=== PATIENT | female | born 1970 | race Asian ===

== ENCOUNTER 2017-12-03 12:12 | Inpatient (IN) | END 2018-02-10 12:30 | disposition home or self-care (01) | DRG 853 ==

== ENCOUNTER 2018-04-10 13:59 | Emergency (ER) | payer BC ==
[~2018-04-10] VITALS: Ht 154.9 cm; Wt 72.7 kg
[~2018-04-10 13:59] MED LIST: ASPI-817 PO; ATOR40TA68 PO; BETH10TA16 PO; CARV12.579 PO; METF500T NGT; NIFE60TA18 PO
[2018-04-10 14:15] VITALS: Ht 154.9 cm; Wt 72.7 kg
--- NOTE | 2018-04-10 14:46 | ERD ---
ER Documentation Chief Complaint Chief Complaint HPI This is a 48-year-old woman currently using doxycycline for bilateral toe gangre ne resulting from recent hospitalization for pyelonephritis. Patient was told to come to the emergency department for evaluation of creatinine of 1.4 which is above her normal and an abnormal urinalysis result. Patient denies back or flank pain, no dysuria, no chest pain or shortness of breath, no rash, no cough or URI symptoms. Patient is able to urinate multiple times daily and is at this time asymptomatic ROS All systems reviewed and are negative except as per history of present illness. Medications Home Meds Active Scripts Cephalexin* (Keflex*) 500 Mg Capsule, 500 MG PO TID for 7 Days, CAP Prov:GISELA HYMAN MD 04/10/18 Nifedipine* (Nifedipine ER*) 60 Mg Tablet.sa, 60 MG PO DAILY, #60 TAB.SA Prov:ANEL COTA 02/09/18 Bethanechol Chloride* (Bethanechol Chloride*) 10 Mg Tablet, 10 MG PO TID, #90 TAB 1 Refill Prov:ANEL COTA 02/09/18 Aspirin* (Aspirin* EC) 81 Mg Tablet., 81 MG PO DAILY for 90 Days, #90 TAB 5 Refills Prov:BRET PARIKH MD 02/05/18 Metformin Hcl (Glucophage) 500 Mg Tablet, 1000 MG NGT BID WITH MEALS for 60 Days, #120 TAB 5 Refills Prov:BRET PARIKH MD 02/05/18 Atorvastatin* (Atorvastatin*) 40 Mg Tablet, 40 MG PO HS for 90 Days, #90 TAB 5 Refills Prov:BRET PARIKH MD 02/05/18 Carvedilol* (Carvedilol*) 12.5 Mg Tablet, 12.5 MG PO BID for 90 Days, #45 TAB 5 Refills Prov:BRET PARIKH MD 02/05/18 Reported Medications Doxycycline Hyclate* (Doxycycline Hyclate*) 100 Mg Tablet.dr, 100 MG PO BID for 14 Days, TAB PER PT'S ON TX FOR THE PAST 7 DAYS 03-24-18 04/10/18 Allergies Allergies: Coded Allergies: No Known Allergy (Unverified , 04/10/18) PMhx/Soc Recent history of septic shock due to urinary tract infection status post double-J stent, neurogenic bladder, diabetes mellitus, peripheral digital necrosis, history of multifocal strokes, hypertension History of Surgery: No Anesthesia Reaction: No Hx Neurological Disorder: No Hx Respiratory Disorders: No Hx Cardiac Disorders: Yes (htn) Hx Psychiatric Problems: No Hx Alcohol Use: No Hx Substance Use: No Hx Tobacco Use: No FmHx Family History: No diabetes Physical Exam Vitals Vital Signs Date Temp Pulse Resp B/P (MAP) Pulse Ox O2 O2 Flow FiO2 Time Delivery Rate 04/10/18 99.1 90 16 138/82 100 Room Air 16:43 (100) 04/10/18 98.6 78 16 132/90 100 14:15 (104) Physical Exam Const: No acute distress, afebrile Head: Atraumatic Eyes: Normal Conjunctiva ENT: Normal External Ears, Nose and Mouth. Neck: Full range of motion. No meningismus. Resp: Clear to auscultation bilaterally Cardio: Regular rate and rhythm, no murmurs Abd: Soft, non tender, non distended. Normal bowel sounds Skin: No petechiae or rashes Back: No midline or flank tenderness Ext: No cyanosis, or edema Neur: Awake and alert x3, no focal deficits or facial asymmetry Psych: Normal Mood and Affect Result Diagram: 04/10/18 1421 04/10/18 1421 Results 24 hrs Laboratory Tests Test 04/10/18 14:21 White Blood Count 12.6 10^3/ul Red Blood Count 4.29 10^6/ul Hemoglobin 12.1 g/dl Hematocrit 36.7 % Mean Corpuscular Volume 85.5 fl Mean Corpuscular Hemoglobin 28.2 pg Mean Corpuscular Hemoglobin Concent 33.0 g/dl Red Cell Distribution Width 12.7 % Platelet Count 315 10^3/UL Mean Platelet Volume 10.5 fl Immature Granulocytes % 0.400 % Neutrophils % 70.3 % Lymphocytes % 16.1 % Monocytes % 5.9 % Eosinophils % 6.7 % Basophils % 0.6 % Nucleated Red Blood Cells % 0.0 /100WBC Immature Granulocytes # 0.050 10^3/ul Neutrophils # 8.9 10^3/ul Lymphocytes # 2.0 10^3/ul Monocytes # 0.7 10^3/ul Eosinophils # 0.8 10^3/ul Basophils # 0.1 10^3/ul Nucleated Red Blood Cells # 0.0 10^3/ul Urine Color YELLOW Urine Clarity SLIGHTLY CLOUDY Urine pH 5.0 Urine Specific [place] 1.011 Urine Ketones NEGATIVE mg/dL Urine Nitrite POSITIVE mg/dL Urine Bilirubin NEGATIVE mg/dL Urine Urobilinogen NEGATIVE mg/dL Urine Leukocyte Esterase 1+ Luis F/ul Urine Microscopic RBC 2 /HPF Urine Microscopic WBC 56 /HPF Urine Squamous Epithelial Cells FEW /HPF Urine Bacteria MODERATE /HPF Urine Hemoglobin 1+ mg/dL Urine Glucose NEGATIVE mg/dL Urine Total Protein 2+ mg/dl Sodium Level 138 mmol/L Potassium Level 4.2 mmol/L Chloride Level 107 mmol/L Carbon Dioxide Level 21 mmol/L Anion Gap 10 Blood Urea Nitrogen 23 mg/dl Creatinine 1.12 mg/dl Est Glomerular Filtrat Rate mL/min 52 mL/min Glucose Level 150 mg/dl Calcium Level 10.3 mg/dl Total Bilirubin 0.0 mg/dl Direct Bilirubin 0.00 mg/dl Indirect Bilirubin 0.0 mg/dl Aspartate Amino Transf (AST/SGOT) 23 IU/L Alanine Aminotransferase (ALT/SGPT) < 6 IU/L Alkaline Phosphatase 69 IU/L Total Protein 9.3 g/dl Albumin 4.4 g/dl Globulin 4.90 g/dl Albumin/Globulin Ratio 0.89 Lipase 184 U/L Current Medications Medications Dose Sig/[place] Start Time Status Last (Trade) Ordered Route PRN Stop Time Admin Dose Reason Admin Sodium 500 ml @ Q1H ONCE 04/10/18 DC 04/10/18 Chloride 500 mls/hr IV 15:00 15:16 04/10/18 15:59 Ceftriaxone 50 ml @ ONCE ONCE 04/10/18 DC 04/10/18 Sodium 100 mls/hr IVPB 15:30 15:33 04/10/18 15:59 Procedures/MDM IV line was established patient was placed on monitoring engineer rhythm strip revealed a sinus rhythm at about 80 bpm with upright P and T waves. Patient was afebrile. Blood and urine cultures have also been ordered results are pending I will follow-up. I administered 500 cc normal saline IV. CBC reveals a mild leukocytosis at 13, electrolytes are unremarkable, liver function tests were normal, urinalysis positive for infection. Seems the creatinine has improved since her PMD checked it a few days ago. I administered ceftriaxone 1 g IV. Patient's vital signs are normal and she is asymptomatic, I told her to continue doxycycline but I will be administering cephalexin as an outpatient times 1 week. Differential diagnoses considered, included but not limited to acute coronary syndrome, pulmonary embolism, aortic dissection, abdominal aortic aneurysm, sepsis, stroke, meningitis, encephalitis, pneumonia, appendicitis, cholecy stitis, bowel obstruction, pyelonephritis, nephrolithiasis, cystitis, as well as metabolic, hematologic, and electrolyte abnormalities. As well as abscess, cellulitis, fractures, and dislocations. Patient feels much better at this time, and vital signs are normal, symptoms have improved. I did give strict instructions to return to the ED if symptoms continue or worsen, patient will otherwise follow-up with primary care physician. Patient understood instructions and agreed to plan. Disclaimer: Inadvertent spelling and grammatical errors are likely due to EHR/dictation software use and do not reflect on the overall quality of patient care. Also, please note that the electronic time recorded on this note does not necessarily reflect the actual time of the patient encounter. Departure Diagnosis: Primary Impression: Toe gangrene Additional Impression: Acute UTI Condition: Good GISELA HYMAN MD Apr 10, 2018 14:46
[2018-04-10] MEDS ORDERED: DOXY100T20 PO (14:56)
[2018-04-10] MEDS ORDERED: SOD CHLORIDE 0.9% 500 ML IV ONE (15:00)
[2018-04-10] MEDS ORDERED: CEPH-443 PO (15:20)
[2018-04-10] MEDS ORDERED: CEFTRIAXONE 1 GM/50 ML (PMX) 50 ML IVPB ONE (15:30)
[2018-04-10 16:43] VITALS: BP 138/82; PULSE 90; RESP 16
== END 2018-04-10 17:16 | disposition home or self-care (01) ==
LOC: E/R 13:59
DX: I96 Gangrene, not elsewhere classified (principal); N39.0 Urinary tract infection, site not specified; I10 Essential (primary) hypertension; Z79.82 Long term (current) use of aspirin; Z79.84 Long term (current) use of oral hypoglycemic drugs
CPT/HCPCS: 36415; 80053; 81001; 83690; 85025; 87040; 87086; 96374; J0696; Z7502

== ENCOUNTER 2018-07-07 12:26 | Inpatient (IN) | payer BC ==
[~2018-07-07] VITALS: Ht 162.6 cm; Wt 57.0 kg
[~2018-07-07 12:26] MED LIST changes: +CEPH-443 PO; +DOXY100T20 PO
[2018-07-07] MEDS ORDERED: VANCOMYCIN IV PER PHARMACY XX SCH (13:00)
[2018-07-07] MEDS ORDERED: LIDOCAINE 1% (MPF) 5 ML VIAL SC ONE ×2 (13:00→13:30)
[2018-07-07 13:23] VITALS: BP 102/52; PULSE 99; RESP 18
[2018-07-07 13:39] VITALS: Ht 162.6 cm; Wt 57.0 kg
[2018-07-07] MEDS: PIPER-TAZO 3.375 GM IV (PMX) 100 ML IVPB SCH ×2 (14:00→21:53)
[2018-07-07] MEDS ORDERED: DOCUSATE SODIUM 100 MG CAP PO PRN (14:30)
[2018-07-07] MEDS ORDERED: VANCOMYCIN 1 GM (PMX) 250 ML IVPB SCH ×2 (14:30→17:00)
[2018-07-07] MEDS ORDERED: ONDANSETRON 4 MG INJ IV PRN (14:30)
[2018-07-07] MEDS ORDERED: HYDROCODONE/APAP (5/325) TAB PO PRN (14:30)
[2018-07-07] MEDS ORDERED: NACL 0.9% 3 ML SYG IV SCH (14:30)
--- NOTE | 2018-07-07 14:45 | HP ---
Date/Time of Note Date/Time of Note DATE: 07/07/18 TIME: 14:39 Assessment/Plan VTE Prophylaxis SCD applied (from Ns): Yes Pharmacological prophylaxis: NA/contraindicated Pharm contraindication: bleeding Assessment/Plan Hospital Course SUBJECTIVE: No acute distress. OBJECTIVE: Vital signs-see below PHYSICAL EXAM: Constitutional: Well-developed, well-nourished not in acute distress. HEENT: Head atraumatic and normocephalic. Eyes: Extraocular muscles intact. Anicteric sclerae. Pupils equal bilaterally, reactive to light. NECK: Supple without lymph node. CHEST: Clear and good breath sounds equally. No wheezing. No rhonchi. HEART: S1, S2. Regular rate and rhythm. ABDOMEN: Soft with no rebound tenderness. Bowel sounds were present. EXTREMITIES: Bilateral foot covered with Kerlix wrap, bloody oozing noted outside. Full range of motion in all the extremities. No cyanosis, clubbing or edema. NEUROLOGIC: Alert and oriented x3. No focal deficit. No sensory deficit. PSYCHOSOCIAL: In a good mood. No signs of depression. INTEGUMENTARY: Moist mucous membranes. Good skin turgor, intact. ASSESSMENT AND PLAN: 48-year-old female with history of type 2 diabetes, hypertension, sepsis/MDR bacteremia and bilateral worsening foot ulcers for which metatarsal amputation was recommended in the past for which patient and family refused and is being managed conservatively, sent by field specialist for inpatient management for worsening bilateral foot ulcers. 1. Bilateral gangrenous foot ulcers with Osteomyelitis -Again, metatarsal amputation was proposed in the past for which patient and family not receptive. At present, podiatry managing w/ conservative medical treatment, local wound care, IV antibiotics. -Obtain MRI to confirm OM. -terminal block assembler IV antimicrobials 2. Type 2 diabetes -Accu-Cheks/Lantus/sliding scale insulin. 3. History of stroke -For now we will hold aspirin secondary to bleeding. 4. Essential hypertension -Resume nifedipine and Coreg 5. Neurogenic bladder/urinary retention -Resume bethanechol DVT prophylaxis: SCDs only. Chemical anticoagulation held in light of bleeding. PUD prophylaxis: Not indicated Rest of the management depend on hospital course. Patient was seen in collaboration with . Result Diagram: 07/07/18 1313 07/07/18 1313 Results 24hrs Laboratory Tests Test 07/07/18 13:12 07/07/18 13:13 Prothrombin Time 12.4 Prothrombin Time Ratio 1.0 INR International Normalized Ratio 0.91 Activated Partial Thromboplast Time 35.4 H White Blood Count 15.9 #H Red Blood Count 3.24 #L Hemoglobin 8.9 #L Hematocrit 28.1 #L Mean Corpuscular Volume 86.7 Mean Corpuscular Hemoglobin 27.5 L Mean Corpuscular Hemoglobin Concent 31.7 L Red Cell Distribution Width 13.6 Platelet Count 384 # Mean Platelet Volume 9.7 Immature Granulocytes % 0.600 H Neutrophils % 71.0 Lymphocytes % 13.0 L Monocytes % 7.2 Eosinophils % 7.3 H Basophils % 0.9 Nucleated Red Blood Cells % 0.0 Immature Granulocytes # 0.100 H Neutrophils # 11.3 H Lymphocytes # 2.1 Monocytes # 1.1 H Eosinophils # 1.2 H Basophils # 0.1 Nucleated Red Blood Cells # 0.0 Erythrocyte Sedimentation Rate > 130 H Sodium Level 145 H Potassium Level 4.2 Chloride Level 110 Carbon Dioxide Level 22 Anion Gap 13 Blood Urea Nitrogen 30 H Creatinine 1.75 H Est Glomerular Filtrat Rate mL/min 31 L Glucose Level 170 Hemoglobin A1c 6.5 H Calcium Level 9.8 Total Bilirubin 0.0 L Direct Bilirubin 0.00 Indirect Bilirubin 0.0 Aspartate Amino Transf (AST/SGOT) 16 Alanine Aminotransferase (ALT/SGPT) < 6 L Alkaline Phosphatase 73 Total Protein 8.7 H Albumin 4.0 Globulin 4.70 H Albumin/Globulin Ratio 0.85 HPI/ROS Admit Date/Time Admit Date/Time Jul 07, 2018 at 12:55 Hx of Present Illness This is a 48-year-old female with diabetes, worsening bilateral foot gangrene,History of multidrug-resistant wound cultures, bacteremia, who was previously recommended a transmetatarsal amputation for which patient and family is not receptive, who is under the care of and is being managed medically for limb salvage with local care and placenta treatment sent for inpatient management w/IV abx for worsening bilateral foot gangrene. Patient denies chest pain, palpitation, short of breath, nausea, vomiting, ab dominal pain, fever, chills, diarrhea, constipation or others. Bilateral foot wound is dressed, bleeding noted outside. ROS A 12 point review of system was assessed and is negative other than what is mentioned in the HPI. PMH/Family/Social Past Medical History Medications Current Medications Vancomycin HCl (Vanco Iv Per Pharmacy) VANCOMYCIN PER PHARMACY PER PROTOCOL XX ; Start 07/07/18 at 13:00 Piperacillin Sod/ Tazobactam Sod 100 ml @ 200 mls/hr Q8 IVPB ; Start 07/07/18 at 14:00 Atorvastatin Calcium (Lipitor) 40 mg HS PO ; Start 07/07/18 at 21:00 Bethanechol Chloride (Urecholine) 10 mg TID PO ; Start 07/07/18 at 21:00 Carvedilol (Coreg) 12.5 mg BID PO ; Start 07/07/18 at 21:00 Nifedipine (Procardia Xl) 60 mg DAILY PO ; Start 07/08/18 at 09:00 Vancomycin HCl 250 ml @ 125 mls/hr ONCE IVPB ; Start 07/07/18 at 17:00; Stop 07/07/18 at 22:00 IV Flush (NS 3 ml) 3 ml PER PROTOCOL IV ; Start 07/07/18 at 14:30; Status UNV Ondansetron HCl (Zofran Inj) 4 mg Q6H PRN IV NAUSEA/VOMITING; Start 07/07/18 at 14:30; Status UNV Acetaminophen (Tylenol Tab) 650 mg Q6H PRN PO .PAIN 1-3 OR TEMP; Start 07/07/18 at 14:30; Status UNV Acetaminophen/ Hydrocodone Bitart ([place] (5/325)) 1 tab Q6H PRN PO .MOD PAIN 4-6; Start 07/07/18 at 14:30; Status UNV Docusate Sodium (Colace) 100 mg Q12H PRN PO .CONSTIPATION; Start 07/07/18 at 14:30; Status UNV Heparin Sodium (Porcine) (Heparin (5000 Units/1ml)) 5,000 unit Q12 SC ; Start 07/07/18 at 21:00; Status UNV Miscellaneous Information (* Miscellaneous Pharmacy Order) Discontinue current oral sulfonylur... ONCE ONCE XX ; Start 07/07/18 at 14:30; Stop 07/07/18 at 14:31; Status UNV Diagnostic Test (Pha) (Accu-Chek) 1 ea XX ; Start 07/08/18 at 02:00; Status UNV Insulin Glargine (Lantus) 9 units DAILY@2000 SC ; Start 07/07/18 at 20:00; Status UNV Miscellaneous Information (* Miscellaneous Pharmacy Order) HYPOGLYCEMIA PROTOCOL w... ONCE ONCE XX ; Start 07/07/18 at 14:30; Stop 07/07/18 at 14:31; Status UNV Insulin Aspart (Novolog Insulin Pen) NOVOLOG *MILD* ALGORITHM WITH MEALS BEDTIME SC ; Start 07/07/18 at 17:55; Status UNV Miscellaneous Information (* Miscellaneous Pharmacy Order) Discontinue all previ... ONCE ONCE XX ; Start 07/07/18 at 14:30; Stop 07/07/18 at 14:31; Status UNV Coded Allergies: No Known Allergy (Unverified , 04/10/18) Family History Significant Family History: no pertinent family hx Social History Smoking Status: Never smoker Exam/Review of Systems Vital Signs Vitals Vital Signs Date Temp Pulse Resp B/P (MAP) Pulse Ox O2 O2 Flow FiO2 Time Delivery Rate 07/07/18 97.9 99 18 102/52 100 Room Air 13:23 (69) RONALD HOLM V. APPLICATOR SPRAYER Jul 07, 2018 14:45
[2018-07-07] MEDS ORDERED: GLUCAGON 1 MG INJ IM PRN (15:00)
[2018-07-07] MEDS ORDERED: GLUCOSE GEL 15 GRAM TUBE PO PRN ×2 (15:00)
[2018-07-07] MEDS ORDERED: GLUCOSE GEL 15 GRAM TUBE BUCCAL PRN (15:00)
[2018-07-07] MEDS ORDERED: DEXTROSE 50% 50 ML SYRINGE IV PRN ×2 (15:00)
[2018-07-07] MEDS ORDERED: PIPER-TAZO 3.375 GM IV (PMX) 100 ML IVPB SCH (18:00)
[2018-07-07] MEDS: INSULIN ASPART [NOVOLOG] 3 ML PEN SC SCH ×2 (18:26→21:37)
[2018-07-07 19:42] VITALS: BP 145/80; PULSE 66; RESP 16
--- NOTE | 2018-07-07 19:44 | CONS ---
DATE OF ADMISSION: 07/07/2018 DATE OF CONSULTATION: 07/07/2018 TYPE OF CONSULTATION: Infectious disease. REASON FOR CONSULTATION: Antibiotic management. HISTORY OF PRESENT ILLNESS: Chanel Castillo is a 48-year-old female who was admitted by Dr. Sonia joy for probable osteomyelitis and is being seen for antibiotic management. Past problems include: 1. Adult-onset diabetes mellitus. 2. Hypertension. 3. History of sepsis and bacteremia. 4. Bilateral worsening foot ulcers for which metatarsal amputation was recommended in the past. The patient and family refused and is being managed conservatively. She was sent by office helper clerical for i npatient management of worsening bilateral foot ulcers. Metatarsal amputations were proposed in the past podiatric management is conservative. She is on IV antibiotics. We are going to obtain a n MRI scan, broad-spectrum antimicrobials and an ID consult was ordered. The patient also has a hist ory of CVA in the past, essential hypertension, neurogenic bladder. PHYSICAL EXAMINATION: GENERAL: She is a well-developed, well-nourished female in no acute distress. VITAL SIGNS: Stable. She is afebrile. SKIN: Without generalized rash. HEENT: Within normal limits. NECK: Supple. LYMPH NODES: None palpable. CHEST: Decreased breath sounds at the bases. HEART: Without murmur or gallop. ABDOMEN: Soft, nontender without organosplenomegaly or masses. EXTREMITIES: Her feet are covered with Kerlix wraps. Bloody oozing is noted. Full range of motion in all extremities. RECTAL AND GENITAL: Deferred. NEUROLOGICAL: No focal neurological abnormalities. HOSPITAL COURSE: White count on admission 15.9, H and H of 8.9 and 28.1, platelet count 384,000. BU N and creatinine is 30/1.75. Random glucose of 170. The patient has a history of multidrug resistan t cultures. She is currently on vancomycin and Zosyn. Laboratory that was drawn on 07/02/2018 and s ent to my office shows a BUN and creatinine of 25/1.21, currently 30/1.75. C-reactive protein of 21. 6. White count was 13.4. The sedimentation rate was 46. We will continue her on her current therap y. I will dictate my findings to Dr. Harmon. Dictated By: ADITYA SOILZ MD, JD/LESLIE Conf#: [id number] [facility]#: [id number] CC: TALI ROBLES MD; HAKAN HARMON DPM;*EndCC*
[2018-07-07] MEDS: BETHANECHOL 10 MG TAB PO SCH (21:00)
[2018-07-07] MEDS ORDERED: HEPARIN 5,000 UNIT/1 ML VIAL SC SCH (21:00)
[2018-07-07] MEDS: INSULIN GLARGINE [LANTus] (100 UNITS/ML) SYG SC SCH (21:38)
[2018-07-07] MEDS: ATORVASTATIN 40 MG TAB PO SCH (21:42)
[2018-07-07] MEDS: ACETAMINOPHEN 325 MG TAB PO PRN (21:55)
[2018-07-07] MEDS: DAKINS 0.0125%(1/40) 473 ML SOLUTION TP SCH (23:18)
[2018-07-07] MEDS: MINERAL OIL 240 ML LOT TOP SCH (23:19)
[2018-07-07] MEDS: COLLAGENASE 5 GM (UD JAR) TOP SCH (23:22)
[2018-07-08 01:48] VITALS: BP 148/82; PULSE 70; RESP 18
[2018-07-08] MEDS: ACCU-CHEK XX SCH (02:05)
[2018-07-08] MEDS: PIPER-TAZO 3.375 GM IV (PMX) 100 ML IVPB SCH ×2 (06:01→13:46)
[2018-07-08 07:56] VITALS: BP 149/82; PULSE 68; RESP 18
[2018-07-08] MEDS: INSULIN ASPART [NOVOLOG] 3 ML PEN SC SCH ×4 (08:47→21:15)
[2018-07-08] MEDS: ASCORBIC ACID 500 MG TAB PO SCH (08:49)
[2018-07-08] MEDS: ZINC SULFATE 220 MG CAP PO SCH (08:50)
[2018-07-08] MEDS: NIFEdipine (XL) 60 MG TAB PO SCH (08:51)
[2018-07-08] MEDS: COLLAGENASE 5 GM (UD JAR) TOP SCH (08:53)
[2018-07-08] MEDS: GENTAMICIN 0.1% 15 GM OINT TOP SCH (08:54)
[2018-07-08] MEDS: BETHANECHOL 10 MG TAB PO SCH ×3 (08:54→21:03)
[2018-07-08] MEDS ORDERED: COLLAGENASE 5 GM (UD JAR) TOP SCH (09:00)
--- NOTE | 2018-07-08 09:25 | PN ---
Date/Time of Note Date/Time of Note DATE: 07/08/18 TIME: : Assessment/Plan VTE Prophylaxis Risk score (from Ns)>0 risk: 5 SCD applied (from Ns): No SCD contraindicated: other Pharmacological prophylaxis: NA/contraindicated Pharm contraindication: anticoag not tolerated Lines/Catheters IV Catheter Type (from [facility]): PICC Line Central line still needed: Yes Assessment/Plan Hospital Course SUBJECTIVE: No acute distress. OBJECTIVE: Vital signs-see below PHYSICAL EXAM: Constitutional: Well-developed, well-nourished not in acute distress. HEENT: Head atraumatic and normocephalic. Eyes: Extraocular muscles intact. Anicteric sclerae. Pupils equal bilaterally, reactive to light. NECK: Supple without lymph node. CHEST: Clear and good breath sounds equally. No wheezing. No rhonchi. HEART: S1, S2. Regular rate and rhythm. ABDOMEN: Soft with no rebound tenderness. Bowel sounds were present. EXTREMITIES: Bilateral foot covered with Kerlix wrap, bloody oozing noted outside. Full range of motion in all the extremities. No cyanosis, clubbing or edema. NEUROLOGIC: Alert and oriented x3. No focal deficit. No sensory deficit. PSYCHOSOCIAL: In a good mood. No signs of depression. INTEGUMENTARY: Moist mucous membranes. Good skin turgor, intact. ASSESSMENT AND PLAN: 48-year-old female with history of type 2 diabetes, hypertension, sepsis/MDR bacteremia and bilateral worsening foot ulcers for which metatarsal amputation was recommended in the past for which patient and family refused and is being managed conservatively, sent by oil deliverer for inpatient management for worsening bilateral foot ulcers. 1. Bilateral gangrenous foot ulcers with Osteomyelitis -MRI noted-patient had refused TMTA in the past. Follow-up podiatry r ecommendation. Continue wound care and IV antimicrobials which she may need it for a long time. 2. Type 2 diabetes -Accu-Cheks/Lantus/sliding scale insulin. 3. History of stroke -For now we will hold aspirin secondary to bleeding. 4. Essential hypertension -On CCB/BB 5. Neurogenic bladder/urinary retention -On bethanechol 6. Acute on chronic anemia. -In light of draining/bleeding from wound, I will transfuse 1 unit packed red blood cells and will continue monitoring. 7. Acute kidney injury, on likely CKD. -Acute kidney injury secondary ATN. Creatinine stabilizing. -Will give IV bolus and will continue monitoring. DVT prophylaxis: SCDs only. Chemical anticoagulation held in light of bleeding. PUD prophylaxis: Not indicated Disposition: Continue medical management. Follow-up cultures and podiatry recommendations. Patient was seen in collaboration with . Result Diagram: 07/08/18 0454 07/08/18 0454 Results 24hrs Laboratory Tests Test 07/07/18 13:12 07/07/18 13:13 07/07/18 18:22 07/07/18 21:32 Prothrombin Time 12.4 Prothrombin Time 1.0 Ratio INR International 0.91 Normalized Ratio Activated 35.4 H Partial Thromboplast Time Rapid Plasma Reagin NONREACTIVE White Blood Count 15.9 #H Red Blood Count 3.24 #L Hemoglobin 8.9 #L Hematocrit 28.1 #L Mean Corpuscular 86.7 Volume Mean Corpuscular 27.5 L Hemoglobin Mean Corpuscular 31.7 L Hemoglobin Concent Red Cell 13.6 Distribution Width Platelet Count 384 # Mean Platelet Volume 9.7 Immature 0.600 H Granulocytes % Neutrophils % 71.0 Lymphocytes % 13.0 L Monocytes % 7.2 Eosinophils % 7.3 H Basophils % 0.9 Nucleated Red Blood 0.0 Cells % Immature 0.100 H Granulocytes # Neutrophils # 11.3 H Lymphocytes # 2.1 Monocytes # 1.1 H Eosinophils # 1.2 H Basophils # 0.1 Nucleated Red Blood 0.0 Cells # Erythrocyte > 130 H Sedimentation Rate Sodium Level 145 H Potassium Level 4.2 Chloride Level 110 Carbon Dioxide Level 22 Anion Gap 13 Blood Urea Nitrogen 30 H Creatinine 1.75 H Est Glomerular 31 L Filtrat Rate mL/min Glucose Level 170 Hemoglobin A1c 6.5 H Calcium Level 9.8 Total Bilirubin 0.0 L Direct Bilirubin 0.00 Indirect Bilirubin 0.0 Aspartate Amino 16 Transf (AST/SGOT) Alanine < 6 L Aminotransferase (AL T/SGPT) Alkaline Phosphatase 73 Total Protein 8.7 H Albumin 4.0 Globulin 4.70 H Albumin/Globulin 0.85 Ratio Bedside Glucose 168 195 Test 07/08/18 02:03 07/08/18 04:54 07/08/18 08:44 Bedside Glucose 145 147 White Blood Count 9.2 # Red Blood Count 2.46 #L Hemoglobin 6.7 #*L Hematocrit 21.8 #L Mean Corpuscular 88.6 Volume Mean Corpuscular 27.2 L Hemoglobin Mean Corpuscular 30.7 L Hemoglobin Concent Red Cell 13.9 Distribution Width Platelet Count 281 # Mean Platelet Volume 9.9 Immature 0.400 Granulocytes % Neutrophils % 64.7 Lymphocytes % 16.5 Monocytes % 8.3 Eosinophils % 9.2 H Basophils % 0.9 Nucleated Red Blood 0.0 Cells % Immature 0.040 H Granulocytes # Neutrophils # 6.0 Lymphocytes # 1.5 Monocytes # 0.8 Eosinophils # 0.9 H Basophils # 0.1 Nucleated Red Blood 0.0 Cells # Sodium Level 141 Potassium Level 3.7 Chloride Level 109 Carbon Dioxide Level 21 Anion Gap 11 Blood Urea Nitrogen 31 H Creatinine 1.46 H Est Glomerular 39 L Filtrat Rate mL/min Glucose Level 128 # Hemoglobin A1c 6.8 H Calcium Level 8.8 Phosphorus Level 5.3 H Magnesium Level 1.8 Total Bilirubin 0.1 L Direct Bilirubin 0.00 Indirect Bilirubin 0.1 Aspartate Amino 14 L Transf (AST/SGOT) Alanine 7 L Aminotransferase (AL T/SGPT) Alkaline Phosphatase 47 Total Protein 6.6 # Albumin 3.1 L Globulin 3.50 H Albumin/Globulin 0.88 Ratio Triglycerides Level 133 Cholesterol Level 131 LDL Cholesterol, 78 Calculated HDL Cholesterol 26 L Cholesterol/HDL 5.0 Ratio Exam/Review of Systems Exam Vitals Vital Signs Date Temp Pulse Resp B/P (MAP) Pulse Ox O2 O2 Flow FiO2 Time Delivery Rate 07/08/18 97.6 68 18 149/82 98 Room Air 07:56 (104) Intake and Output 07/07/18 07/07/18 07/08/18 1515:00 23:00 07:00 IntakeIntake Total 650 ml 100 ml BalanceBalance 650 ml 100 ml Results Results 24hrs Laboratory Tests Test 07/07/18 13:12 07/07/18 13:13 07/07/18 18:22 07/07/18 21:32 Prothrombin Time 12.4 Prothrombin Time 1.0 Ratio INR International 0.91 Normalized Ratio Activated 35.4 H Partial Thromboplast Time Rapid Plasma Reagin NONREACTIVE White Blood Count 15.9 #H Red Blood Count 3.24 #L Hemoglobin 8.9 #L Hematocrit 28.1 #L Mean Corpuscular 86.7 Volume Mean Corpuscular 27.5 L Hemoglobin Mean Corpuscular 31.7 L Hemoglobin Concent Red Cell 13.6 Distribution Width Platelet Count 384 # Mean Platelet Volume 9.7 Immature 0.600 H Granulocytes % Neutrophils % 71.0 Lymphocytes % 13.0 L Monocytes % 7.2 Eosinophils % 7.3 H Basophils % 0.9 Nucleated Red Blood 0.0 Cells % Immature 0.100 H Granulocytes # Neutrophils # 11.3 H Lymphocytes # 2.1 Monocytes # 1.1 H Eosinophils # 1.2 H Basophils # 0.1 Nucleated Red Blood 0.0 Cells # Erythrocyte > 130 H Sedimentation Rate Sodium Level 145 H Potassium Level 4.2 Chloride Level 110 Carbon Dioxide Level 22 Anion Gap 13 Blood Urea Nitrogen 30 H Creatinine 1.75 H Est Glomerular 31 L Filtrat Rate mL/min Glucose Level 170 Hemoglobin A1c 6.5 H Calcium Level 9.8 Total Bilirubin 0.0 L Direct Bilirubin 0.00 Indirect Bilirubin 0.0 Aspartate Amino 16 Transf (AST/SGOT) Alanine < 6 L Aminotransferase (AL T/SGPT) Alkaline Phosphatase 73 Total Protein 8.7 H Albumin 4.0 Globulin 4.70 H Albumin/Globulin 0.85 Ratio Bedside Glucose 168 195 Test 07/08/18 02:03 07/08/18 04:54 07/08/18 08:44 Bedside Glucose 145 147 White Blood Count 9.2 # Red Blood Count 2.46 #L Hemoglobin 6.7 #*L Hematocrit 21.8 #L Mean Corpuscular 88.6 Volume Mean Corpuscular 27.2 L Hemoglobin Mean Corpuscular 30.7 L Hemoglobin Concent Red Cell 13.9 Distribution Width Platelet Count 281 # Mean Platelet Volume 9.9 Immature 0.400 Granulocytes % Neutrophils % 64.7 Lymphocytes % 16.5 Monocytes % 8.3 Eosinophils % 9.2 H Basophils % 0.9 Nucleated Red Blood 0.0 Cells % Immature 0.040 H Granulocytes # Neutrophils # 6.0 Lymphocytes # 1.5 Monocytes # 0.8 Eosinophils # 0.9 H Basophils # 0.1 Nucleated Red Blood 0.0 Cells # Sodium Level 141 Potassium Level 3.7 Chloride Level 109 Carbon Dioxide Level 21 Anion Gap 11 Blood Urea Nitrogen 31 H Creatinine 1.46 H Est Glomerular 39 L Filtrat Rate mL/min Glucose Level 128 # Hemoglobin A1c 6.8 H Calcium Level 8.8 Phosphorus Level 5.3 H Magnesium Level 1.8 Total Bilirubin 0.1 L Direct Bilirubin 0.00 Indirect Bilirubin 0.1 Aspartate Amino 14 L Transf (AST/SGOT) Alanine 7 L Aminotransferase (AL T/SGPT) Alkaline Phosphatase 47 Total Protein 6.6 # Albumin 3.1 L Globulin 3.50 H Albumin/Globulin 0.88 Ratio Triglycerides Level 133 Cholesterol Level 131 LDL Cholesterol, 78 Calculated HDL Cholesterol 26 L Cholesterol/HDL 5.0 Ratio Medications Medication Current Medications Vancomycin HCl (Vanco Iv Per Pharmacy) VANCOMYCIN PER PHARMACY PER PROTOCOL XX ; Start 07/07/18 at 13:00 Piperacillin Sod/ Tazobactam Sod 100 ml @ 200 mls/hr Q8 IVPB Last administered on 07/08/18at 06:01; Admin Dose 200 MLS/HR; Start 07/07/18 at 14:00 Atorvastatin Calcium (Lipitor) 40 mg HS PO Last administered on 07/07/18at 21:42; Admin Dose 40 MG; Start 07/07/18 at 21:00 Bethanechol Chloride (Urecholine) 10 mg TID PO ; Start 07/07/18 at 21:00 Carvedilol (Coreg) 12.5 mg BID PO Last administered on 07/07/18at 21:42; Admin Dose 12.5 MG; Start 07/07/18 at 21:00 Nifedipine (Procardia Xl) 60 mg DAILY PO ; Start 07/08/18 at 09:00 IV Flush (NS 3 ml) 3 ml PER PROTOCOL IV ; Start 07/07/18 at 14:30 Ondansetron HCl (Zofran Inj) 4 mg Q6H PRN IV NAUSEA/VOMITING; Start 07/07/18 at 14:30 Acetaminophen (Tylenol Tab) 650 mg Q6H PRN PO .PAIN 1-3 OR TEMP Last administered on 07/07/18at 21:55; Admin Dose 650 MG; Start 07/07/18 at 14:30 Acetaminophen/ Hydrocodone Bitart ([place] (5/325)) 1 tab Q6H PRN PO .MOD PAIN 4- 6; Start 07/07/18 at 14:30 Docusate Sodium (Colace) 100 mg Q12H PRN PO .CONSTIPATION; Start 07/07/18 at 14:30 Diagnostic Test (Pha) (Accu-Chek) 1 ea 02 XX Last administered on 07/08/18at 02:05; Admin Dose 1 EA; Start 07/08/18 at 02:00 Insulin Glargine (Lantus) 9 units DAILY@2000 SC Last administered on 07/07/18at 21:38; Admin Dose 9 UNITS; Start 07/07/18 at 20:00 Insulin Aspart (Novolog Insulin Pen) NOVOLOG *MILD* ALGORITHM WITH MEALS BEDTIME SC Last administered on 07/07/18at 21:37; Admin Dose 1 UNIT; Start 07/07/18 at 17:55 Miscellaneous Information 1 ea NOTE XX ; Start 07/07/18 at 15:00 Glucose (Glutose) 15 gm Q15M PRN PO DECREASED GLUCOSE; Start 07/07/18 at 15:00 Glucose (Glutose) 22.5 gm Q15M PRN PO DECREASED GLUCOSE; Start 07/07/18 at 15:00 Dextrose (D50w Syringe) 25 ml Q15M PRN IV DECREASED GLUCOSE; Start 07/07/18 at 15:00 Dextrose (D50w Syringe) 50 ml Q15M PRN IV DECREASED GLUCOSE; Start 07/07/18 at 15:00 Glucagon (Glucagen) 1 mg Q15M PRN IM DECREASED GLUCOSE; Start 07/07/18 at 15:00 Glucose (Glutose) 15 gm Q15M PRN BUCCAL DECREASED GLUCOSE; Start 07/07/18 at 15:00 Gentamicin Sulfate (Gentamicin 0.1% Oint) 1 applic DAILY TOP ; Start 07/08/18 at 09:00 Ascorbic Acid (Vitamin C) 1,000 mg DAILY PO ; Start 07/08/18 at 09:00 Zinc Sulfate (Zinc Sulfate) 220 mg DAILY PO ; Start 07/08/18 at 09:00 Mineral Oil (Eucerin Lotion) 1 applic BID TOP Last administered on 07/07/18at 23:19; Admin Dose 1 APPLIC; Start 07/07/18 at 21:00 IV Flush (NS 10 ml) 10 ml PRN PRN IV FLUSH LINE; Start 07/07/18 at 17:30 Vancomycin/Sodium Chloride 250 ml @ 125 mls/hr Q24H IVPB ; Start 07/08/18 at 18:00 Collagenase (Santyl) 1 applic DAILY TOP Last administered on 07/07/18at 23:22; Admin Dose 1 APPLIC; Start 07/07/18 at 22:05 Sodium Hypochlorite (Dakins Diluted (1/40)) 1 applic BID TP Last administered on 07/07/18at 23:18; Admin Dose 1 APPLIC; Start 07/07/18 at 23:00 RONALD HOLM NP Jul 08, 2018 09:25
[2018-07-08] MEDS ORDERED: SOD CHLORIDE 0.9% 500 ML IV ONE (09:30)
--- NOTE | 2018-07-08 10:14 | CONS ---
DATE OF ADMISSION: 07/07/2018 DATE OF CONSULTATION: 07/08/2018 REASON FOR CONSULTATION: Bilateral foot gangrene with extensive tissue loss. HISTORY OF PRESENT ILLNESS: This is a 48-year-old female being followed via outpatient wound care. The patient has had a staged wound debridements with currently demarcation of gangrenous tissue. Fin dings consistent of osteomyelitis of the second metatarsal of the left foot as well as medullary infa rcts of the left foot bone and also osteomyelitis of the right 5th metatarsal head and proximal phala nx. PAST MEDICAL HISTORY: Diabetes type 2, hypertension, history of sepsis, bacteremia and has history o f stroke, neurogenic bladder, urinary retention. PHYSICAL EXAMINATION: VITAL SIGNS: Temperature is 97.6, pulse is 68, respiratory rate 18, blood pressure is 149/82, pulse ox is 98% on room air. GENERAL: The patient is alert and oriented. HEAD: Normocephalic, atraumatic. Trachea is midline. EXTREMITIES: Dressings clean, dry, and intact in bilateral feet. 2+ DP, PT, and popliteal pulse nolberto aterally. Slight malodor to bilateral feet. The patient with gangrenous toes to the left foot at th e level of metatarsophalangeal joint and to the right 4th and fifth toes. There is an open amputatio n to the 3rd toe at the IPJ extensive ulceration volume plantar surface bilateral feet. LABORATORIES: WBC at admission 15.9 and currently 9.2, hemoglobin 6.7, hematocrit is 21.8, platelets 281. Sed. rate is 130, sodium 141, potassium 3.7, chloride is 109, CO2 was 21, BUN 31, creatinine 1 .46, hemoglobin A1c 6.8. MRI Reviewed. Wound cultures from 07/07/18 is pending. ASSESSMENT 1. Bilateral foot gangrene. 2. Osteomyelitis. 3. Diabetic ulceration with extensive tissue loss. 4. History of stroke. 5. Anemia. 6. Diabetes type 2. 7. Chronic kidney disease. PLAN: Awaiting culture results. Lengthy discussion regarding surgical recommendations. Family had been adamantly refusing in the past. Currently they are considering and had multiple questions. Aft er an extensive questioning, they are amenable to procedure in a couple of weeks. Discussed transmet atarsal amputation with an allograft mid left foot with digit amputation on the right with allograft application, debridement of ulcerations. Discussed also wound VAC application. The patient is on va ncomycin and Zosyn, renally dose. Also I recommend b.i.d. dressing changes. Nursing recommendation is given. Dictated By: HAKAN HARMON DPM RB/LESLIE Conf#: [id number] DID#: [id number] CC: HAKAN HARMON DPM; TALI ROBLES MD;*End*
[2018-07-08] MEDS: MINERAL OIL 240 ML LOT TOP SCH ×2 (10:16→21:10)
[2018-07-08] MEDS: DAKINS 0.0125%(1/40) 473 ML SOLUTION TP SCH ×2 (10:17→21:10)
--- NOTE | 2018-07-08 14:13 | CONS ---
Assessment/Plan Assessment/Plan Hospital Course (Demo Recall) Patient is alert eating lunch looks comfortable denies pain no fevers overnight. She had a PICC line placed yesterday. Antimicrobials: Vancomycin, Zosyn Microbiology: Blood cultures remain negative left foot wound culture grew Corynebacterium, E. coli, multidrug resistant Acinetobacter Shahrzad, enterococcus Physical examination: Well-developed well-nourished middle-aged woman who is a lert in no distress. Head atraumatic normocephalic sclera nonicteric. Neck is supple. Chest rise symmetrical, breath sounds clear. Heart: S1-S2. Abdomen soft bowel sounds present. Extremities with bilateral lower extremities dressing clean dry and intact Assessment: 1. Bilateral lower extremities gangrene/Osteomyelitis 2. Chronic kidney disease, history of hemodialysis 3. Diabetes Plan: Pt needs group home IV abx for OM, will change antibiotics to Tygacil and Cefepime, CM to arrange coverage Consultation Date/Type/Reason Admit Date/Time Jul 07, 2018 at 12:55 Initial Consult Date Type of Consult id Date/Time of Note DATE: 07/08/18 TIME: 14:13 Exam/Review of Systems Exam Vitals Vital Signs Date Temp Pulse Resp B/P (MAP) Pulse Ox O2 O2 Flow FiO2 Time Delivery Rate 07/08/18 97.6 68 18 149/82 98 Room Air 07:56 (104) Intake and Output 07/07/18 07/07/18 07/08/18 1515:00 23:00 07:00 IntakeIntake Total 650 ml 100 ml BalanceBalance 650 ml 100 ml Results Result Diagram: 07/08/18 0454 07/08/18 0454 Results 24hrs Laboratory Tests Test 07/07/18 18:22 07/07/18 21:32 07/08/18 02:03 07/08/18 04:54 Bedside Glucose 168 195 145 White Blood Count 9.2 # Red Blood Count 2.46 #L Hemoglobin 6.7 #*L Hematocrit 21.8 #L Mean Corpuscular 88.6 Volume Mean Corpuscular 27.2 L Hemoglobin Mean Corpuscular 30.7 L Hemoglobin Concent Red Cell 13.9 Distribution Width Platelet Count 281 # Mean Platelet Volume 9.9 Immature 0.400 Granulocytes % Neutrophils % 64.7 Segmented 68 Neutrophils % (Manual) Band Neutrophils % 2 (Manual) Lymphocytes % 16.5 Lymphocytes % 11 L (Manual) Monocytes % 8.3 Monocytes % (Manual) 4 Eosinophils % 9.2 H Eosinophils % 12 H (Manual) Basophils % 0.9 Basophils % (Manual) 3 H Nucleated Red Blood 0.0 Cells % Immature 0.040 H Granulocytes # Neutrophils # 6.0 Neutrophils # 6.3 (Manual) Band Neutrophils # 0.1 Lymphocytes (Manual) 1.0 Lymphocytes # 1.5 Monocytes # 0.8 Monocytes # (Manual) 0.3 Eosinophils # 0.9 H Basophils # 0.1 Basophils # (Manual) 0.2 H Nucleated Red Blood 0.0 Cells # Platelet Estimate NORMAL Giant Platelets 1 H Polychromasia 1+ Poikilocytosis 1+ Anisocytosis 1+ Microcytosis 1+ Sodium Level 141 Potassium Level 3.7 Chloride Level 109 Carbon Dioxide Level 21 Anion Gap 11 Blood Urea Nitrogen 31 H Creatinine 1.46 H Est Glomerular 39 L Filtrat Rate mL/min Glucose Level 128 # Hemoglobin A1c 6.8 H Calcium Level 8.8 Phosphorus Level 5.3 H Magnesium Level 1.8 Total Bilirubin 0.1 L Direct Bilirubin 0.00 Indirect Bilirubin 0.1 Aspartate Amino 14 L Transf (AST/SGOT) Alanine 7 L Aminotransferase (AL T/SGPT) Alkaline Phosphatase 47 Total Protein 6.6 # Albumin 3.1 L Globulin 3.50 H Albumin/Globulin 0.88 Ratio Triglycerides Level 133 Cholesterol Level 131 LDL Cholesterol, 78 Calculated HDL Cholesterol 26 L Cholesterol/HDL 5.0 Ratio Test 07/08/18 08:44 07/08/18 13:40 Bedside Glucose 147 186 Medications Medication Current Medications Vancomycin HCl (Vanco Iv Per Pharmacy) VANCOMYCIN PER PHARMACY PER PROTOCOL XX ; Start 07/07/18 at 13:00 Piperacillin Sod/ Tazobactam Sod 100 ml @ 200 mls/hr Q8 IVPB Last administered on 07/08/18at 13:46; Admin Dose 200 MLS/HR; Start 07/07/18 at 14:00 Atorvastatin Calcium (Lipitor) 40 mg HS PO Last administered on 07/07/18at 21:42; Admin Dose 40 MG; Start 07/07/18 at 21:00 Bethanechol Chloride (Urecholine) 10 mg TID PO ; Start 07/07/18 at 21:00 Carvedilol (Coreg) 12.5 mg BID PO Last administered on 07/08/18at 08:52; Admin Dose 12.5 MG; Start 07/07/18 at 21:00 Nifedipine (Procardia Xl) 60 mg DAILY PO Last administered on 07/08/18at 08:51; Admin Dose 60 MG; Start 07/08/18 at 09:00 IV Flush (NS 3 ml) 3 ml PER PROTOCOL IV ; Start 07/07/18 at 14:30 Ondansetron HCl (Zofran Inj) 4 mg Q6H PRN IV NAUSEA/VOMITING; Start 07/07/18 at 14:30 Acetaminophen (Tylenol Tab) 650 mg Q6H PRN PO .PAIN 1-3 OR TEMP Last administered on 07/07/18at 21:55; Admin Dose 650 MG; Start 07/07/18 at 14:30 Acetaminophen/ Hydrocodone Bitart ([place] (5/325)) 1 tab Q6H PRN PO .MOD PAIN 4- 6; Start 07/07/18 at 14:30 Docusate Sodium (Colace) 100 mg Q12H PRN PO .CONSTIPATION; Start 07/07/18 at 14:30 Diagnostic Test (Pha) (Accu-Chek) 1 ea 02 XX Last administered on 07/08/18at 02:05; Admin Dose 1 EA; Start 07/08/18 at 02:00 Insulin Glargine (Lantus) 9 units DAILY@2000 SC Last administered on 07/07/18at 21:38; Admin Dose 9 UNITS; Start 07/07/18 at 20:00 Insulin Aspart (Novolog Insulin Pen) NOVOLOG *MILD* ALGORITHM WITH MEALS BED TIME SC Last administered on 07/08/18at 13:46; Admin Dose 2 UNIT; Start 07/07/18 at 17:55 Miscellaneous Information 1 ea NOTE XX ; Start 07/07/18 at 15:00 Glucose (Glutose) 15 gm Q15M PRN PO DECREASED GLUCOSE; Start 07/07/18 at 15:00 Glucose (Glutose) 22.5 gm Q15M PRN PO DECREASED GLUCOSE; Start 07/07/18 at 15:00 Dextrose (D50w Syringe) 25 ml Q15M PRN IV DECREASED GLUCOSE; Start 07/07/18 at 15:00 Dextrose (D50w Syringe) 50 ml Q15M PRN IV DECREASED GLUCOSE; Start 07/07/18 at 15:00 Glucagon (Glucagen) 1 mg Q15M PRN IM DECREASED GLUCOSE; Start 07/07/18 at 15:00 Glucose (Glutose) 15 gm Q15M PRN BUCCAL DECREASED GLUCOSE; Start 07/07/18 at 15:00 Gentamicin Sulfate (Gentamicin 0.1% Oint) 1 applic DAILY TOP Last administered on 07/08/18at 08:54; Admin Dose 1 APPLIC; Start 07/08/18 at 09:00 Ascorbic Acid (Vitamin C) 1,000 mg DAILY PO Last administered on 07/08/18at 08:49; Admin Dose 1,000 MG; Start 07/08/18 at 09:00 Zinc Sulfate (Zinc Sulfate) 220 mg DAILY PO Last administered on 07/08/18 08:50; Admin Dose 220 MG; Start 07/08/18 at 09:00 Mineral Oil (Eucerin Lotion) 1 applic BID TOP Last administered on 07/08/18at 10:16; Admin Dose 1 APPLIC; Start 07/07/18 at 21:00 IV Flush (NS 10 ml) 10 ml PRN PRN IV FLUSH LINE; Start 07/07/18 at 17:30 Collagenase (Santyl) 1 applic DAILY TOP Last administered on 07/08/18at 08:53; Admin Dose 1 APPLIC; Start 07/07/18 at 22:05 Sodium Hypochlorite (Dakins Diluted (40)) 1 applic BID TP Last administered on 07/08/18at 10:17; Admin Dose 1 APPLIC; Start 07/07/18 at 23:00 Miscellaneous Information (*Rx Drug Level Order Reminder*) 1 0500 ONCE XX ; Start 07/09/18 at 05:00; Stop 07/09/18 at 05:01 SEBASTIAN BARRETO NP Jul 08, 2018 14:13
[2018-07-08] MEDS ORDERED: COLISTIMETHATE 150 MG in SOD CHLORIDE 0.9% 100 ML IVPB SCH (14:30)
[2018-07-08] MEDS ORDERED: DAPTOMYCIN 340 MG in SOD CHLORIDE 0.9% 100 ML IVPB SCH (14:30)
[2018-07-08 15:24] VITALS: BP 135/65; PULSE 94; RESP 18
[2018-07-08] MEDS: ACETAMINOPHEN 325 MG TAB PO PRN (16:18)
[2018-07-08] MEDS ORDERED: VANCOMYCIN 750 MG (PMX) 250 ML IVPB SCH (18:00)
[2018-07-08] MEDS ORDERED: TIGECYCLINE 100 MG in SOD CHLORIDE 0.9% 100 ML IVPB ONE (18:00)
[2018-07-08 19:30] VITALS: BP 114/64; PULSE 91; RESP 18
[2018-07-08] MEDS: ATORVASTATIN 40 MG TAB PO SCH (21:03)
[2018-07-08] MEDS: CEFEPIME 1GM/50 ML (PMX) 50 ML IVPB SCH (21:04)
[2018-07-08] MEDS: INSULIN GLARGINE [LANTus] (100 UNITS/ML) SYG SC SCH (21:16)
[2018-07-09] MEDS: ACCU-CHEK XX SCH (02:00)
[2018-07-09 02:30] VITALS: BP 135/79; PULSE 86; RESP 18
[2018-07-09] MEDS: TIGECYCLINE 50 MG in SOD CHLORIDE 0.9% 100 ML IVPB SCH ×2 (05:50→17:56)
[2018-07-09] MEDS ORDERED: TIGECYCLINE 50 MG in SOD CHLORIDE 0.9% 100 ML IVPB SCH (06:00)
[2018-07-09 07:41] VITALS: BP 151/72; PULSE 81; RESP 19
[2018-07-09] MEDS: BETHANECHOL 10 MG TAB PO SCH ×4 (09:00→20:19)
[2018-07-09] MEDS: GENTAMICIN 0.1% 15 GM OINT TOP SCH (09:00)
[2018-07-09] MEDS: INSULIN ASPART [NOVOLOG] 3 ML PEN SC SCH ×4 (09:02→20:39)
[2018-07-09] MEDS: ZINC SULFATE 220 MG CAP PO SCH (09:04)
[2018-07-09] MEDS: NIFEdipine (XL) 60 MG TAB PO SCH (09:05)
[2018-07-09] MEDS: ASCORBIC ACID 500 MG TAB PO SCH (09:05)
[2018-07-09] MEDS: CEFEPIME 1GM/50 ML (PMX) 50 ML IVPB SCH ×2 (09:07→20:19)
--- NOTE | 2018-07-09 11:40 | PN ---
Date/Time of Note Date/Time of Note DATE: 07/09/18 TIME: 11:35 Assessment/Plan VTE Prophylaxis Risk score (from Ns)>0 risk: 6 SCD applied (from Ns): Yes Pharmacological prophylaxis: NA/contraindicated Pharm contraindication: anticoag not tolerated Lines/Catheters IV Catheter Type (from [facility]): PICC Line Central line still needed: Yes Urinary Cath still in place: No Assessment/Plan Hospital Course SUBJECTIVE: No acute distress. OBJECTIVE: Vital signs-see below PHYSICAL EXAM: Constitutional: Well-developed, well-nourished not in acute distress. HEENT: Head atraumatic and normocephalic. Eyes: Extraocular muscles intact. Anicteric sclerae. Pupils equal bilaterally, reactive to light. NECK: Supple without lymph node. CHEST: Clear and good breath sounds equally. No wheezing. No rhonchi. HEART: S1, S2. Regular rate and rhythm. ABDOMEN: Soft with no rebound tenderness. Bowel sounds were present. EXTREMITIES: Bilateral foot covered with Kerlix wrap, bloody oozing noted outside. Full range of motion in all the extremities. No cyanosis, clubbing or edema. NEUROLOGIC: Alert and oriented x3. No focal deficit. No sensory deficit. PSYCHOSOCIAL: In a good mood. No signs of depression. INTEGUMENTARY: Moist mucous membranes. Good skin turgor, intact. ASSESSMENT AND PLAN: 48-year-old female with history of type 2 diabetes, hyperte nsion, sepsis/MDR bacteremia and bilateral worsening foot ulcers for which metatarsal amputation was recommended in the past for which patient and family refused and is being managed conservatively, sent by talent partner for inpatient management for worsening bilateral foot ulcers. 1. Bilateral gangrenous foot ulcers with Osteomyelitis -Podiatry recs appreciated. Family/pt refuses transmetatarsal amputation of the left foot with digit amputation on the right-they want to wait for another 2 weeks and will then consider surgical option. -Continue wound care and senior living IV antimicrobials 2. Type 2 diabetes -good control -Accu-Cheks/Lantus/sliding scale insulin. 3. History of stroke -safe to resume ASA 4. Essential hypertension -On CCB/BB 5. Neurogenic bladder/urinary retention -On bethanechol 6. Acute on chronic anemia. -S/p PRBS-HH stabilizing -Monitor 7. Acute kidney injury, on likely CKD. -Acute kidney injury secondary ATN. Creatinine stabilizing. -nephrology consult DVT prophylaxis: SCDs only. Chemical anticoagulation held in light of bleeding. PUD prophylaxis: Not indicated Disposition: Continue medical management. Follow-up cultures and podiatry recommendations. ID recommended Tygacil and cefepime for long-term. Case management to arrange this. Patient already has a PICC line. Patient was seen in collaboration with . Result Diagram: 07/09/1845607/09/18456 Results 24hrs Laboratory Tests Test 07/08/18 13:40 07/08/18 18:09 07/08/18 18:51 07/08/18 21:12 Bedside Glucose 186 161 222 H White Blood Count 12.9 #H Red Blood Count 3.21 #L Hemoglobin 8.8 #L Hematocrit 27.7 #L Mean Corpuscular 86.3 Volume Mean Corpuscular 27.4 L Hemoglobin Mean Corpuscular 31.8 L Hemoglobin Concen t Red Cell 14.0 Distribution Width Platelet Count 324 Mean Platelet 10.0 Volume Immature 0.500 H Granulocytes % Neutrophils % 73.9 Lymphocytes % 10.6 L Monocytes % 6.7 Eosinophils % 7.6 H Basophils % 0.7 Nucleated Red 0.0 Blood Cells % Immature 0.060 H Granulocytes # Neutrophils # 9.5 H Lymphocytes # 1.4 Monocytes # 0.9 Eosinophils # 1.0 H Basophils # 0.1 Nucleated Red 0.0 Blood Cells # Test 07/09/18 02:19 07/09/18 04:57 07/09/18 07:54 07/09/18 08:59 Bedside Glucose 170 133 White Blood Count 11.1 H Red Blood Count 2.94 L Hemoglobin 8.2 L Hematocrit 25.8 L Mean Corpuscular 87.8 Volume Mean Corpuscular 27.9 L Hemoglobin Mean Corpuscular 31.8 L Hemoglobin Concen t Red Cell 13.8 Distribution Width Platelet Count 276 Mean Platelet 10.6 H Volume Immature 0.400 Granulocytes % Neutrophils % 75.1 Lymphocytes % 9.6 L Monocytes % 6.7 Eosinophils % 7.5 H Basophils % 0.7 Nucleated Red 0.0 Blood Cells % Immature 0.040 H Granulocytes # Neutrophils # 8.4 H Lymphocytes # 1.1 Monocytes # 0.8 Eosinophils # 0.8 H Basophils # 0.1 Nucleated Red 0.0 Blood Cells # Sodium Level 143 Potassium Level 4.0 Chloride Level 113 H Carbon Dioxide 20 L Level Anion Gap 10 Blood Urea 36 H Nitrogen Creatinine 1.51 H Est Glomerular 37 L Filtrat Rate mL/min Glucose Level 155 Calcium Level 9.1 Magnesium Level 1.8 Lab Scanned BLOOD TRANSFUSIO Report N Exam/Review of Systems Exam Vitals Vital Signs Date Temp Pulse Resp B/P (MAP) Pulse Ox O2 O2 Flow FiO2 Time Delivery Rate 07/09/18 98.5 81 19 151/72 98 07:41 (98) 07/08/18 Room Air 15:24 Intake and Output 07/08/18 07/08/18 07/09/18 1515:00 23:00 07:00 IntakeIntake Total 920 ml 950 ml 520 ml BalanceBalance 920 ml 950 ml 520 ml Results Results 24hrs Laboratory Tests Test 07/08/18 13:40 07/08/18 18:09 07/08/18 18:51 07/08/18 21:12 Bedside Glucose 186 161 222 H White Blood Count 12.9 #H Red Blood Count 3.21 #L Hemoglobin 8.8 #L Hematocrit 27.7 #L Mean Corpuscular 86.3 Volume Mean Corpuscular 27.4 L Hemoglobin Mean Corpuscular 31.8 L Hemoglobin Concen t Red Cell 14.0 Distribution Width Platelet Count 324 Mean Platelet 10.0 Volume Immature 0.500 H Granulocytes % Neutrophils % 73.9 Lymphocytes % 10.6 L Monocytes % 6.7 Eosinophils % 7.6 H Basophils % 0.7 Nucleated Red 0.0 Blood Cells % Immature 0.060 H Granulocytes # Neutrophils # 9.5 H Lymphocytes # 1.4 Monocytes # 0.9 Eosinophils # 1.0 H Basophils # 0.1 Nucleated Red 0.0 Blood Cells # Test 07/09/18 02:19 07/09/18 04:57 07/09/18 07:54 07/09/18 08:59 Bedside Glucose 170 133 White Blood Count 11.1 H Red Blood Count 2.94 L Hemoglobin 8.2 L Hematocrit 25.8 L Mean Corpuscular 87.8 Volume Mean Corpuscular 27.9 L Hemoglobin Mean Corpuscular 31.8 L Hemoglobin Concen t Red Cell 13.8 Distribution Width Platelet Count 276 Mean Platelet 10.6 H Volume Immature 0.400 Granulocytes % Neutrophils % 75.1 Lymphocytes % 9.6 L Monocytes % 6.7 Eosinophils % 7.5 H Basophils % 0.7 Nucleated Red 0.0 Blood Cells % Immature 0.040 H Granulocytes # Neutrophils # 8.4 H Lymphocytes # 1.1 Monocytes # 0.8 Eosinophils # 0.8 H Basophils # 0.1 Nucleated Red 0.0 Blood Cells # Sodium Level 143 Potassium Level 4.0 Chloride Level 113 H Carbon Dioxide 20 L Level Anion Gap 10 Blood Urea 36 H Nitrogen Creatinine 1.51 H Est Glomerular 37 L Filtrat Rate mL/min Glucose Level 155 Calcium Level 9.1 Magnesium Level 1.8 Lab Scanned BLOOD TRANSFUSIO Report N Medications Medication Current Medications Atorvastatin Calcium (Lipitor) 40 mg HS PO Last administered on 07/08/18at 21:03; Admin Dose 40 MG; Start 07/07/18 at 21:00 Bethanechol Chloride (Urecholine) 10 mg TID PO Last administered on 07/08/18 21:03; Admin Dose 10 MG; Start 07/07/18 at 21:00 Carvedilol (Coreg) 12.5 mg BID PO Last administered on 07/09/18 09:07; Admin Dose 12.5 MG; Start 07/07/18 at 21:00 Nifedipine (Procardia Xl) 60 mg DAILY PO Last administered on 07/09/18 09:05; Admin Dose 60 MG; Start 07/08/18 at 09:00 IV Flush (NS 3 ml) 3 ml PER PROTOCOL IV ; Start 07/07/18 at 14:30 Ondansetron HCl (Zofran Inj) 4 mg Q6H PRN IV NAUSEA/VOMITING; Start 07/07/18 at 14:30 Acetaminophen (Tylenol Tab) 650 mg Q6H PRN PO .PAIN 1-3 OR TEMP Last administered on 07/08/18at 16:18; Admin Dose 650 MG; Start 07/07/18 at 14:30 Acetaminophen/ Hydrocodone Bitart ([place] (5/325)) 1 tab Q6H PRN PO .MOD PAIN 4- 6; Start 07/07/18 at 14:30 Docusate Sodium (Colace) 100 mg Q12H PRN PO .CONSTIPATION; Start 07/07/18 at 14:30 Diagnostic Test (Pha) (Accu-Chek) 1 ea 02 XX Last administered on 07/08/18at 02:05; Admin Dose 1 EA; Start 07/08/18 at 02:00 Insulin Glargine (Lantus) 9 units DAILY@2000 SC Last administered on 07/08/18at 21:16; Admin Dose 9 UNITS; Start 07/07/18 at 20:00 Insulin Aspart (Novolog Insulin Pen) NOVOLOG *MILD* ALGORITHM WITH MEALS BEDTIME SC Last administered on 07/08/18at 21:15; Admin Dose 2 UNIT; Start 07/07/18 at 17:55 Miscellaneous Information 1 ea NOTE XX ; Start 07/07/18 at 15:00 Glucose (Glutose) 15 gm Q15M PRN PO DECREASED GLUCOSE; Start 07/07/18 at 15:00 Glucose (Glutose) 22.5 gm Q15M PRN PO DECREASED GLUCOSE; Start 07/07/18 at 15:00 Dextrose (D50w Syringe) 25 ml Q15M PRN IV DECREASED GLUCOSE; Start 07/07/18 at 15:00 Dextrose (D50w Syringe) 50 ml Q15M PRN IV DECREASED GLUCOSE; Start 07/07/18 at 15:00 Glucagon (Glucagen) 1 mg Q15M PRN IM DECREASED GLUCOSE; Start 07/07/18 at 15:00 Glucose (Glutose) 15 gm Q15M PRN BUCCAL DECREASED GLUCOSE; Start 07/07/18 at 15:00 Gentamicin Sulfate (Gentamicin 0.1% Oint) 1 applic DAILY TOP Last administered on 07/08/18at 08:54; Admin Dose 1 APPLIC; Start 07/08/18 at 09:00 Ascorbic Acid (Vitamin C) 1,000 mg DAILY PO Last administered on 07/09/18at 09:05; Admin Dose 1,000 MG; Start 07/08/18 at 09:00 Zinc Sulfate (Zinc Sulfate) 220 mg DAILY PO Last administered on 07/09/18at 09:04; Admin Dose 220 MG; Start 07/08/18 at 09:00 Mineral Oil (Eucerin Lotion) 1 applic BID TOP Last administered on 07/08/18at 21:10; Admin Dose 1 APPLIC; Start 07/07/18 at 21:00 IV Flush (NS 10 ml) 10 ml PRN PRN IV FLUSH LINE; Start 07/07/18 at 17:30 Sodium Hypochlorite (Dakins Diluted ()) 1 applic BID TP Last administered on 07/08/18at 21:10; Admin Dose 1 APPLIC; Start 07/07/18 at 23:00 Cefepime HCl 50 ml @ 100 mls/hr Q12 IVPB Last administered on 07/09/18at 09:07; Admin Dose 100 MLS/HR; Start 07/08/18 at 21:00 Collagenase (Santyl) 2 applic DAILY TOP ; Start 07/09/18 at 09:00 Tigecycline 50 mg/ Sodium Chloride 100 ml @ 200 mls/hr Q12H IVPB Last administered on 07/09/18at 05:50; Admin Dose 200 MLS/HR; Start 07/09/18 at 06:00 RONALD HOLM V. [employer] INS[employer] Jul 09, 2018 11:40
[2018-07-09] MEDS: DAKINS 0.0125%(1/40) 473 ML SOLUTION TP SCH ×2 (12:56→20:41)
[2018-07-09] MEDS: MINERAL OIL 240 ML LOT TOP SCH ×2 (12:56→20:41)
[2018-07-09] MEDS: ASPIRIN 81 MG TAB PO SCH (12:57)
[2018-07-09] MEDS: COLLAGENASE 5 GM (UD JAR) TOP SCH (12:59)
--- NOTE | 2018-07-09 13:44 | CONS ---
Assessment/Plan Assessment/Plan Hospital Course (Demo Recall) Patient is alert feels good denies pain no fevers overnight WBC 11.1 platelets 276 no shift no bands BUN 36 creatinine 1.51 Antimicrobials: Tygacil, cefepime Microbiology: Wound culture grew multidrug-resistant Acinetobacter, enterococcus, E. coli Physical examination: Well-developed well-nourished middle-aged woman who is alert in no distress. Head atraumatic normocephalic sclera nonicteric. Neck is supple. Chest rise symmetrical, breath sounds clear. Heart: S1-S2. Abdomen soft bowel sounds present. Extremities with bilateral lower extremities dressing clean dry and intact Assessment: 1. Bilateral lower extremities gangrene/Osteomyelitis 2. Chronic kidney disease, history of hemodialysis 3. 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 IV abx for OM==> at least 6 weeks, CM to arrange coverage Consultation Date/Type/Reason Admit Date/Time Jul 07, 2018 at 12:55 Initial Consult Date Type of Consult id Date/Time of Note DATE: 07/09/18 TIME: 13:43 Exam/Review of Systems Exam Vitals Vital Signs Date Temp Pulse Resp B/P (MAP) Pulse Ox O2 O2 Flow FiO2 Time Delivery Rate 07/09/18 98.5 81 19 151/72 98 07:41 (98) 07/08/18 Room Air 15:24 Intake and Output 07/08/18 07/08/18 07/09/18 1515:00 23:00 07:00 IntakeIntake Total 920 ml 950 ml 520 ml BalanceBalance 920 ml 950 ml 520 ml Results Result Diagram: 07/09/18 0457 07/09/18 0457 Results 24hrs Laboratory Tests Test 07/08/18 18:09 07/08/18 18:51 07/08/18 21:12 07/09/18 02:19 Bedside Glucose 161 222 H 170 White Blood Count 12.9 #H Red Blood Count 3.21 #L Hemoglobin 8.8 #L Hematocrit 27.7 #L Mean Corpuscular 86.3 Volume Mean Corpuscular 27.4 L Hemoglobin Mean Corpuscular 31.8 L Hemoglobin Concen t Red Cell 14.0 Distribution Width Platelet Count 324 Mean Platelet 10.0 Volume Immature 0.500 H Granulocytes % Neutrophils % 73.9 Lymphocytes % 10.6 L Monocytes % 6.7 Eosinophils % 7.6 H Basophils % 0.7 Nucleated Red 0.0 Blood Cells % Immature 0.060 H Granulocytes # Neutrophils # 9.5 H Lymphocytes # 1.4 Monocytes # 0.9 Eosinophils # 1.0 H Basophils # 0.1 Nucleated Red 0.0 Blood Cells # Test 07/09/18 04:57 07/09/18 07:54 07/09/18 08:59 07/09/18 12:54 White Blood Count 11.1 H Red Blood Count 2.94 L Hemoglobin 8.2 L Hematocrit 25.8 L Mean Corpuscular 87.8 Volume Mean Corpuscular 27.9 L Hemoglobin Mean Corpuscular 31.8 L Hemoglobin Concen t Red Cell 13.8 Distribution Width Platelet Count 276 Mean Platelet 10.6 H Volume Immature 0.400 Granulocytes % Neutrophils % 75.1 Lymphocytes % 9.6 L Monocytes % 6.7 Eosinophils % 7.5 H Basophils % 0.7 Nucleated Red 0.0 Blood Cells % Immature 0.040 H Granulocytes # Neutrophils # 8.4 H Lymphocytes # 1.1 Monocytes # 0.8 Eosinophils # 0.8 H Basophils # 0.1 Nucleated Red 0.0 Blood Cells # Sodium Level 143 Potassium Level 4.0 Chloride Level 113 H Carbon Dioxide 20 L Level Anion Gap 10 Blood Urea 36 H Nitrogen Creatinine 1.51 H Est Glomerular 37 L Filtrat Rate mL/min Glucose Level 155 Calcium Level 9.1 Magnesium Level 1.8 Lab Scanned BLOOD TRANSFUSIO Report N Bedside Glucose 133 138 Medications Medication Current Medications Atorvastatin Calcium (Lipitor) 40 mg HS PO Last administered on 07/08/18at 21:03; Admin Dose 40 MG; Start 07/07/18 at 21:00 Bethanechol Chloride (Urecholine) 10 mg TID PO Last administered on 07/08/18at 21:03; Admin Dose 10 MG; Start 07/07/18 at 21:00 Carvedilol (Coreg) 12.5 mg BID PO Last administered on 07/09/18at 09:07; Admin Dose 12.5 MG; Start 07/07/18 at 21:00 Nifedipine (Procardia Xl) 60 mg DAILY PO Last administered on 07/09/18at 09:05; Admin Dose 60 MG; Start 07/08/18 at 09:00 IV Flush (NS 3 ml) 3 ml PER PROTOCOL IV ; Start 07/07/18 at 14:30 Ondansetron HCl (Zofran Inj) 4 mg Q6H PRN IV NAUSEA/VOMITING; Start 07/07/18 at 14:30 Acetaminophen (Tylenol Tab) 650 mg Q6H PRN PO .PAIN 1-3 OR TEMP Last administered on 07/08/18at 16:18; Admin Dose 650 MG; Start 07/07/18 at 14:30 Acetaminophen/ Hydrocodone Bitart ([place] (5/325)) 1 tab Q6H PRN PO .MOD PAIN 4- 6; Start 07/07/18 at 14:30 Docusate Sodium (Colace) 100 mg Q12H PRN PO .CONSTIPATION; Start 07/07/18 at 14:30 Diagnostic Test (Pha) (Accu-Chek) 1 ea 02 XX Last administered on 07/08/18at 02:05; Admin Dose 1 EA; Start 07/08/18 at 02:00 Insulin Glargine (Lantus) 9 units DAILY@2000 SC Last administered on 07/08/18at 21:16; Admin Dose 9 UNITS; Start 07/07/18 at 20:00 Insulin Aspart (Novolog Insulin Pen) NOVOLOG *MILD* ALGORITHM WITH MEALS BE DTIME SC Last administered on 07/08/18at 21:15; Admin Dose 2 UNIT; Start 07/07/18 at 17:55 Miscellaneous Information 1 ea NOTE XX ; Start 07/07/18 at 15:00 Glucose (Glutose) 15 gm Q15M PRN PO DECREASED GLUCOSE; Start 07/07/18 at 15:00 Glucose (Glutose) 22.5 gm Q15M PRN PO DECREASED GLUCOSE; Start 07/07/18 at 15:00 Dextrose (D50w Syringe) 25 ml Q15M PRN IV DECREASED GLUCOSE; Start 07/07/18 at 15:00 Dextrose (D50w Syringe) 50 ml Q15M PRN IV DECREASED GLUCOSE; Start 07/07/18 at 15:00 Glucagon (Glucagen) 1 mg Q15M PRN IM DECREASED GLUCOSE; Start 07/07/18 at 15:00 Glucose (Glutose) 15 gm Q15M PRN BUCCAL DECREASED GLUCOSE; Start 07/07/18 at 15:00 Gentamicin Sulfate (Gentamicin 0.1% Oint) 1 applic DAILY TOP Last administered on 07/09/18at 09:00; Admin Dose 1 APPLIC; Start 07/08/18 at 09:00 Ascorbic Acid (Vitamin C) 1,000 mg DAILY PO Last administered on 07/09/18 09:05; Admin Dose 1,000 MG; Start 07/08/18 at 09:00 Zinc Sulfate (Zinc Sulfate) 220 mg DAILY PO Last administered on 07/09/18 09:04; Admin Dose 220 MG; Start 07/08/18 at 09:00 Mineral Oil (Eucerin Lotion) 1 applic BID TOP Last administered on 07/09/18 12:56; Admin Dose 1 APPLIC; Start 07/07/18 at 21:00 IV Flush (NS 10 ml) 10 ml PRN PRN IV FLUSH LINE; Start 07/07/18 at 17:30 Sodium Hypochlorite (Dakins Diluted (40)) 1 applic BID TP Last administered on 07/09/18 12:56; Admin Dose 1 APPLIC; Start 07/07/18 at 23:00 Cefepime HCl 50 ml @ 100 mls/hr Q12 IVPB Last administered on 07/09/18 09:07; Admin Dose 100 MLS/HR; Start 07/08/18 at 21:00 Collagenase (Santyl) 2 applic DAILY TOP Last administered on 07/09/18 12:59; Admin Dose 2 APPLIC; Start 07/09/18 at 09:00 Tigecycline 50 mg/ Sodium Chloride 100 ml @ 200 mls/hr Q12H IVPB Last administered on 07/09/18 05:50; Admin Dose 200 MLS/HR; Start 07/09/18 at 06:00 Aspirin (Aspirin) 81 mg DAILY PO Last administered on 07/09/18 12:57; Admin Dose 81 MG; Start 07/09/18 at 12:00 SEBASTIAN BARRETO NP Jul 09, 2018 13:44
[2018-07-09 19:15] VITALS: BP 130/73; PULSE 85; RESP 18
--- NOTE | 2018-07-09 19:22 | CONS ---
DATE OF ADMISSION: 07/07/2018 DATE OF CONSULTATION: TYPE OF CONSULTATION: Nephrology. REASON FOR CONSULTATION: Chronic kidney disease, acute kidney injury. PROVIDER REQUESTING CONSULT: Mel Bran NP HISTORY OF PRESENT ILLNESS: This is a 48-year-old female with a past medical history of acute kidney injury, history of diabetes, history of hypertension, history of sepsis, history of gangrenous toes, who presents to [facility] for evaluation of transmetatarsal amputation. The wayne ent initially was admitted in 11/2017 to [facility] with septic shock. The patient had a prolonged complicated course. The patient went into acute kidney injury due to ATN, was on he modialysis. The patient eventually had renal recovery. Dialysis was discontinued. The patient's [facility] creatinine was approximately 1.5 mg/dL. The patient since her [facility]. The patient unfortunately did not have clinical improvement and as a result, she was brought into [facility] for possibility of transmetatarsa l amputation. In terms of patient's renal history, the patient had acute kidney injury, currently on CKD with a bas guan[place] creatinine around 1.5 mg/dL. The patient currently on admission had a creatinine of 1.7 mg/dL, which improved to 1.5 mg/dL during hospital course. The patient was receiving IV fluids and antibio tic therapy. PAST MEDICAL HISTORY: As stated above, history of diabetes, history of CKD, history of hypertension, history of sepsis, history of gangrenous toes. FAMILY HISTORY: No family history of kidney disease. SOCIAL HISTORY: Does not drink, smoke or do drugs. PAST SURGICAL HISTORY: Reviewed. ALLERGIES: NO KNOWN DRUG ALLERGIES. REVIEW OF SYSTEMS: A 14-point review of systems was conducted. Pertinent positives stated in HPI, o therwise negative. PHYSICAL EXAMINATION: VITAL SIGNS: Blood pressure is 151/72, respiration 19, pulse 81, temperature 98.5. HEENT: Head is normocephalic. NECK: Supple. HEART: Regular rate. LUNGS: Show diminished breath sounds at base. ABDOMEN: Soft, nontender to palpation without rebound or guarding. EXTREMITIES: Negative for clubbing, cyanosis. Positive gangrenous toes on the left foot at the leve l of the metatarsal joint to the 4th and 5th toes. NEUROLOGIC: No focal deficits. MEDICATIONS: Have been reviewed. LABORATORY DATA: Have been reviewed. ASSESSMENT AND PLAN: This is a 48-year-old female who presents with: 1. Nonoliguric acute kidney injury on top of chronic kidney disease stage III with baseline creatini ne level of 1.5 mg/dL. Etiology of acute kidney injury is likely secondary to hemodynamics. The pat ient's renal function has improved with supportive care, IV fluids. Creatinine appears to be back at baseline. Plan at this point is to do a full evaluation. We will check UA with microanalysis. Tina ck urine electrolytes. We will quantify the patient's proteinuria. We would otherwise continue curr ent treatment plan, supportive care, renally dose all meds. We will monitor renal function closely, avoid hemodynamic fluctuations. 2. Anemia. Monitor hemoglobin and hematocrit levels. 3. Mineral bone disorder. Monitor calcium and phosphorus levels. 4. Metabolic acidosis secondary to acute kidney injury. Continue to monitor bicarbonate levels. Co nsider starting Bicitra if acidosis does not improve. 5. Hypertension. Continue current blood pressure regimen. 6. Bilateral gangrenous foot ulcers with osteomyelitis. The patient is followed by podiatry, jaleel lagunas possible transmetatarsal amputation. Continue to monitor. 7. Neurogenic bladder. Continue to monitor. Continue bethanechol. 8. Diabetes. Continue current insulin regimen. 9. History of cerebrovascular accident. Continue medical management. Thank you, Mel, for this interesting consult. It will be a pleasure to follow patient with you thr oughout the hospital course. Dictated By: PARI TRAN DO NR/NTS Conf#: [id number] DID#: [id number] CC: TALI ROBLES MD; HAKAN HARMON DPM;*EndCC*
[2018-07-09] MEDS: ATORVASTATIN 40 MG TAB PO SCH (20:19)
[2018-07-09] MEDS: INSULIN GLARGINE [LANTus] (100 UNITS/ML) SYG SC SCH (20:27)
[2018-07-10 00:44] VITALS: BP 132/79; PULSE 82; RESP 18
[2018-07-10] MEDS: ACCU-CHEK XX SCH (02:00)
[2018-07-10] MEDS: TIGECYCLINE 50 MG in SOD CHLORIDE 0.9% 100 ML IVPB SCH ×2 (06:10→16:51)
[2018-07-10 07:39] VITALS: BP 147/78; PULSE 79; RESP 18
[2018-07-10] MEDS: INSULIN ASPART [NOVOLOG] 3 ML PEN SC SCH ×4 (07:50→21:00)
[2018-07-10] MEDS: ASCORBIC ACID 500 MG TAB PO SCH (09:02)
[2018-07-10] MEDS: ZINC SULFATE 220 MG CAP PO SCH (09:02)
[2018-07-10] MEDS: CEFEPIME 1GM/50 ML (PMX) 50 ML IVPB SCH ×2 (09:02→21:03)
[2018-07-10] MEDS: NIFEdipine (XL) 60 MG TAB PO SCH (09:03)
[2018-07-10] MEDS: ASPIRIN 81 MG TAB PO SCH (09:04)
[2018-07-10] MEDS: COLLAGENASE 5 GM (UD JAR) TOP SCH ×2 (09:07→21:28)
[2018-07-10] MEDS: MINERAL OIL 240 ML LOT TOP SCH ×2 (09:07→21:27)
[2018-07-10] MEDS: DAKINS 0.0125%(1/40) 473 ML SOLUTION TP SCH ×2 (09:07→21:24)
[2018-07-10] MEDS: BETHANECHOL 10 MG TAB PO SCH ×3 (09:08→21:06)
[2018-07-10] MEDS: GENTAMICIN 0.1% 15 GM OINT TOP SCH (09:09)
--- NOTE | 2018-07-10 10:37 | CONS ---
Assessment/Plan Assessment/Plan Assessment/Plan (Daily) 1. Nonoliguric acute kidney injury on top of proteinuric chronic kidney disease stage III: Etiology of acute kidney injury is likely secondary to hemodynamics. The patient's renal function has improved with supportive care, IV fluids. Cr likely near baseline. will start acei/arb once renal function stabilizes. 2. Anemia. Monitor hemoglobin and hematocrit levels. 3. Mineral bone disorder. Monitor calcium and phosphorus levels. 4. Metabolic acidosis secondary to acute kidney injury. if HCO3 continues to be low, will start bicitra 5. Hypertension. Continue current blood pressure regimen. 6. Bilateral gangrenous foot ulcers with osteomyelitis. The patient is followed by podiatry, pending possible transmetatarsal amputation. Continue to monitor. 7. Neurogenic bladder. Continue to monitor. Continue bethanechol. 8. Diabetes. Continue current insulin regimen. 9. History of cerebrovascular accident. Continue medical management. Consultation Date/Type/Reason Admit Date/Time Jul 07, 2018 at 12:55 Initial Consult Date Date/Time of Note DATE: 07/10/18 TIME: 10:34 24 HR Interval Summary Free Text/Dictation denies n/v, shortness of breath or urinary issues ddemario rn gen nad cv rrr pulm ctab abd soft, nd, nt +bs ext: no edema Exam/Review of Systems Exam Vitals Vital Signs Date Temp Pulse Resp B/P (MAP) Pulse Ox O2 O2 Flow FiO2 Time Delivery Rate 07/10/18 98.6 79 18 147/78 99 Room Air 07:39 (101) Intake and Output 07/09/18 07/09/18 07/10/18 1515:00 23:00 07:00 IntakeIntake Total 270 ml 870 ml 520 ml OutputOutput Total 300 ml 300 ml BalanceBalance 270 ml 570 ml 220 ml Results Result Diagram: 07/10/18 0451 07/10/18 0450 Results 24hrs Laboratory Tests Test 07/09/18 12:54 07/09/18 17:43 07/09/18 20:25 07/10/18 00:40 Bedside Glucose 138 97 136 Urine Color YELLOW Urine Clarity SLIGHTLY CLOUDY A Urine pH 5.0 Urine Specific 1.015 [place] Urine Ketones NEGATIVE Urine Nitrite NEGATIVE Urine Bilirubin NEGATIVE Urine NEGATIVE Urobilinogen Urine Leukocyte NEGATIVE Esterase Urine Microscopic 3 RBC Urine Microscopic 2 WBC Urine Squamous FEW Epithelial Cells Urine Yeast FEW A (Budding) Urine Hemoglobin NEGATIVE Urine Random 62.55 Creatinine Urine Random 73 Sodium Urine Glucose NEGATIVE Urine Total 252.0 H Protein Test 07/10/18 04:50 07/10/18 04:51 07/10/18 08:37 Sodium Level 142 Potassium Level 4.0 Chloride Level 113 H Carbon Dioxide 18 L Level Anion Gap 11 Blood Urea 43 H Nitrogen Creatinine 1.37 H Est Glomerular 42 L Filtrat Rate mL/min Glucose Level 116 Calcium Level 9.5 Phosphorus Level 6.5 H Magnesium Level 1.9 White Blood Count 9.2 Red Blood Count 3.93 #L Hemoglobin 10.9 #L Hematocrit 33.8 #L Mean Corpuscular 86.0 Volume Mean Corpuscular 27.7 L Hemoglobin Mean Corpuscular 32.2 Hemoglobin Concen t Red Cell 13.9 Distribution Width Platelet Count 271 Mean Platelet 10.1 Volume Immature 0.300 Granulocytes % Neutrophils % 69.2 Lymphocytes % 15.7 Monocytes % 7.1 Eosinophils % 6.7 Basophils % 1.0 Nucleated Red 0.0 Blood Cells % Immature 0.030 Granulocytes # Neutrophils # 6.4 Lymphocytes # 1.5 Monocytes # 0.7 Eosinophils # 0.6 H Basophils # 0.1 Nucleated Red 0.0 Blood Cells # Bedside Glucose 111 Medications Medication Current Medications Atorvastatin Calcium (Lipitor) 40 mg HS PO Last administered on 07/09/18at 20:19; Admin Dose 40 MG; Start 07/07/18 at 21:00 Bethanechol Chloride (Urecholine) 10 mg TID PO Last administered on 07/10/18at 09:08; Admin Dose 10 MG; Start 07/07/18 at 21:00 Carvedilol (Coreg) 12.5 mg BID PO Last administered on 07/10/18at 09:04; Admin Dose 12.5 MG; Start 07/07/18 at 21:00 Nifedipine (Procardia Xl) 60 mg DAILY PO Last administered on 07/10/18at 09:03; Admin Dose 60 MG; Start 07/08/18 at 09:00 IV Flush (NS 3 ml) 3 ml PER PROTOCOL IV ; Start 07/07/18 at 14:30 Ondansetron HCl (Zofran Inj) 4 mg Q6H PRN IV NAUSEA/VOMITING; Start 07/07/18 at 14:30 Acetaminophen (Tylenol Tab) 650 mg Q6H PRN PO .PAIN 1-3 OR TEMP Last administered on 07/08/18at 16:18; Admin Dose 650 MG; Start 07/07/18 at 14:30 Acetaminophen/ Hydrocodone Bitart ([place] (5/325)) 1 tab Q6H PRN PO .MOD PAIN 4- 6; Start 07/07/18 at 14:30 Docusate Sodium (Colace) 100 mg Q12H PRN PO .CONSTIPATION Last administered on 07/10/18at 09:02; Admin Dose 100 MG; Start 07/07/18 at 14:30 Diagnostic Test (Pha) (Accu-Chek) 1 ea 02 XX Last administered on 07/08/18at 02:05; Admin Dose 1 EA; Start 07/08/18 at 02:00 Insulin Glargine (Lantus) 9 units DAILY@2000 SC Last administered on 07/09/18at 20:27; Admin Dose 9 UNITS; Start 07/07/18 at 20:00 Insulin Aspart (Novolog Insulin Pen) NOVOLOG *MILD* ALGORITHM WITH MEALS BEDTIME SC Last administered on 07/08/18at 21:15; Admin Dose 2 UNIT; Start 07/07/18 at 17:55 Miscellaneous Information 1 ea NOTE XX ; Start 07/07/18 at 15:00 Glucose (Glutose) 15 gm Q15M PRN PO DECREASED GLUCOSE; Start 07/07/18 at 15:00 Glucose (Glutose) 22.5 gm Q15M PRN PO DECREASED GLUCOSE; Start 07/07/18 at 15:00 Dextrose (D50w Syringe) 25 ml Q15M PRN IV DECREASED GLUCOSE; Start 07/07/18 at 15:00 Dextrose (D50w Syringe) 50 ml Q15M PRN IV DECREASED GLUCOSE; Start 07/07/18 at 15:00 Glucagon (Glucagen) 1 mg Q15M PRN IM DECREASED GLUCOSE; Start 07/07/18 at 15:00 Glucose (Glutose) 15 gm Q15M PRN BUCCAL DECREASED GLUCOSE; Start 07/07/18 at 15:00 Gentamicin Sulfate (Gentamicin 0.1% Oint) 1 applic DAILY TOP Last administered on 07/10/18at 09:09; Admin Dose 1 APPLIC; Start 07/08/18 at 09:00 Ascorbic Acid (Vitamin C) 1,000 mg DAILY PO Last administered on 07/10/18 09:02; Admin Dose 1,000 MG; Start 07/08/18 at 09:00 Zinc Sulfate (Zinc Sulfate) 220 mg DAILY PO Last administered on 07/10/18 09:02; Admin Dose 220 MG; Start 07/08/18 at 09:00 Mineral Oil (Eucerin Lotion) 1 applic BID TOP Last administered on 07/10/18 09:07; Admin Dose 1 APPLIC; Start 07/07/18 at 21:00 IV Flush (NS 10 ml) 10 ml PRN PRN IV FLUSH LINE; Start 07/07/18 at 17:30 Sodium Hypochlorite (Dakins Diluted ()) 1 applic BID TP Last administered on 07/10/18 09:07; Admin Dose 1 APPLIC; Start 07/07/18 at 23:00 Cefepime HCl 50 ml @ 100 mls/hr Q12 IVPB Last administered on 07/10/18 09:02; Admin Dose 100 MLS/HR; Start 07/08/18 at 21:00 Collagenase (Santyl) 2 applic DAILY TOP Last administered on 07/10/18 09:07; Admin Dose 2 APPLIC; Start 07/09/18 at 09:00 Tigecycline 50 mg/ Sodium Chloride 100 ml @ 200 mls/hr Q12H IVPB Last a dministered on 07/10/18 06:10; Admin Dose 200 MLS/HR; Start 07/09/18 at 06:00 Aspirin (Aspirin) 81 mg DAILY PO Last administered on 07/10/18 09:04; Admin Dose 81 MG; Start 07/09/18 at 12:00 BRENNON HASSAN MD Jul 10, 2018 10:37
--- NOTE | 2018-07-10 11:53 | PN ---
Date/Time of Note Date/Time of Note DATE: 07/10/18 TIME: 11:50 Assessment/Plan VTE Prophylaxis Risk score (from Ns)>0 risk: 6 SCD applied (from [facility]): No SCD contraindicated: bilateral LE trauma Pharmacological prophylaxis: heparin Lines/Catheters IV Catheter Type (from [facility]): PICC Line Central line still needed: Yes Urinary Cath still in place: No Assessment/Plan Problems: (1) Foot osteomyelitis, left Status: Chronic Comment: On IV antibiotics as per infectious disease recommendation for 6 weeks via PICC line. After that based on podiatry recommendations for a TMA Qualifiers: Osteomyelitis type: other acute Qualified Codes: M86.172 - Other acute osteomyelitis, left ankle and foot (2) Foot osteomyelitis, right Status: Chronic Comment: As above. Qualifiers: Osteomyelitis type: other acute Qualified Codes: M86.171 - Other acute osteomyelitis, right ankle and foot (3) Diabetes mellitus type 2 in nonobese Status: Chronic Comment: Patient has had adequate control at home. Please note there is no significant stenosis in the lower extremity arterial Doppler studies from roughly 6 months ago. However patient Del he has some calcification in the arteries (4) Neurogenic bladder Status: Chronic Comment: This is listed in the chart. (5) Acute kidney injury (nontraumatic) Status: Chronic Comment: Stabilizing and improving. (6) Chronic kidney disease, stage III (moderate) Status: Chronic Comment: I am in agreement with nephrology about the addition of YVROSE inhibitor in the near future (7) Essential hypertension Status: Chronic Comment: Presently controlled (8) Anemia due to chronic kidney disease Status: Chronic Comment: Check iron studies Result Diagram: 07/10/18 0451 07/10/18 0450 Results 24hrs Laboratory Tests Test 07/09/18 12:54 07/09/18 17:43 07/09/18 20:25 07/10/18 00:40 Bedside Glucose 138 97 136 Urine Color YELLOW Urine Clarity SLIGHTLY CLOUDY A Urine pH 5.0 Urine Specific 1.015 [place] Urine Ketones NEGATIVE Urine Nitrite NEGATIVE Urine Bilirubin NEGATIVE Urine NEGATIVE Urobilinogen Urine Leukocyte NEGATIVE Esterase Urine Microscopic 3 RBC Urine Microscopic 2 WBC Urine Squamous FEW Epithelial Cells Urine Yeast FEW A (Budding) Urine Hemoglobin NEGATIVE Urine Random 62.55 Creatinine Urine Random 73 Sodium Urine Glucose NEGATIVE Urine Total 252.0 H Protein Test 07/10/18 04:50 07/10/18 04:51 07/10/18 08:37 07/10/18 11:40 Sodium Level 142 Potassium Level 4.0 Chloride Level 113 H Carbon Dioxide 18 L Level Anion Gap 11 Blood Urea 43 H Nitrogen Creatinine 1.37 H Est Glomerular 42 L Filtrat Rate mL/min Glucose Level 116 Calcium Level 9.5 Phosphorus Level 6.5 H Magnesium Level 1.9 White Blood Count 9.2 Red Blood Count 3.93 #L Hemoglobin 10.9 #L Hematocrit 33.8 #L Mean Corpuscular 86.0 Volume Mean Corpuscular 27.7 L Hemoglobin Mean Corpuscular 32.2 Hemoglobin Concen t Red Cell 13.9 Distribution Width Platelet Count 271 Mean Platelet 10.1 Volume Immature 0.300 Granulocytes % Neutrophils % 69.2 Lymphocytes % 15.7 Monocytes % 7.1 Eosinophils % 6.7 Basophils % 1.0 Nucleated Red 0.0 Blood Cells % Immature 0.030 Granulocytes # Neutrophils # 6.4 Lymphocytes # 1.5 Monocytes # 0.7 Eosinophils # 0.6 H Basophils # 0.1 Nucleated Red 0.0 Blood Cells # Bedside Glucose 111 156 Subjective 24 Hr Interval Summary Free Text/Dictation 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 She reports she is doing relatively well Constitutional: no complaints Respiratory: no complaints Cardiovascular: no complaints Gastrointestinal: no complaints Genitourinary: no complaints Exam/Review of Systems Exam Vitals Vital Signs Date Temp Pulse Resp B/P (MAP) Pulse Ox O2 O2 Flow FiO2 Time Delivery Rate 07/10/18 98.6 79 18 147/78 99 Room Air 07:39 (101) Intake and Output 07/09/18 07/09/18 07/10/18 1515:00 23:00 07:00 IntakeIntake Total 270 ml 870 ml 520 ml OutputOutput Total 300 ml 300 ml BalanceBalance 270 ml 570 ml 220 ml Constitutional: alert, oriented Neck: supple, non-tender Respiratory: clear to auscultation, normal air movement Cardiovascular: regular rate and rhythm, nl pulses Gastrointestinal: soft, nl liver, spleen, non-tender Results Results 24hrs Laboratory Tests Test 07/09/18 12:54 07/09/18 17:43 07/09/18 20:25 07/10/18 00:40 Bedside Glucose 138 97 136 Urine Color YELLOW Urine Clarity SLIGHTLY CLOUDY A Urine pH 5.0 Urine Specific 1.015 [place] Urine Ketones NEGATIVE Urine Nitrite NEGATIVE Urine Bilirubin NEGATIVE Urine NEGATIVE Urobilinogen Urine Leukocyte NEGATIVE Esterase Urine Microscopic 3 RBC Urine Microscopic 2 WBC Urine Squamous FEW Epithelial Cells Urine Yeast FEW A (Budding) Urine Hemoglobin NEGATIVE Urine Random 62.55 Creatinine Urine Random 73 Sodium Urine Glucose NEGATIVE Urine Total 252.0 H Protein Test 07/10/18 04:50 07/10/18 04:51 07/10/18 08:37 07/10/18 11:40 Sodium Level 142 Potassium Level 4.0 Chloride Level 113 H Carbon Dioxide 18 L Level Anion Gap 11 Blood Urea 43 H Nitrogen Creatinine 1.37 H Est Glomerular 42 L Filtrat Rate mL/min Glucose Level 116 Calcium Level 9.5 Phosphorus Level 6.5 H Magnesium Level 1.9 White Blood Count 9.2 Red Blood Count 3.93 #L Hemoglobin 10.9 #L Hematocrit 33.8 #L Mean Corpuscular 86.0 Volume Mean Corpuscular 27.7 L Hemoglobin Mean Corpuscular 32.2 Hemoglobin Concen t Red Cell 13.9 Distribution Width Platelet Count 271 Mean Platelet 10.1 Volume Immature 0.300 Granulocytes % Neutrophils % 69.2 Lymphocytes % 15.7 Monocytes % 7.1 Eosinophils % 6.7 Basophils % 1.0 Nucleated Red 0.0 Blood Cells % Immature 0.030 Granulocytes # Neutrophils # 6.4 Lymphocytes # 1.5 Monocytes # 0.7 Eosinophils # 0.6 H Basophils # 0.1 Nucleated Red 0.0 Blood Cells # Bedside Glucose 111 156 Medications Medication Current Medications Atorvastatin Calcium (Lipitor) 40 mg HS PO Last administered on 07/09/18at 20:19; Admin Dose 40 MG; Start 07/07/18 at 21:00 Bethanechol Chloride (Urecholine) 10 mg TID PO Last administered on 07/10/18at 09:08; Admin Dose 10 MG; Start 07/07/18 at 21:00 Carvedilol (Coreg) 12.5 mg BID PO Last administered on 07/10/18at 09:04; Admin Dose 12.5 MG; Start 07/07/18 at 21:00 Nifedipine (Procardia Xl) 60 mg DAILY PO Last administered on 07/10/18at 09:03; Admin Dose 60 MG; Start 07/08/18 at 09:00 IV Flush (NS 3 ml) 3 ml PER PROTOCOL IV ; Start 07/07/18 at 14:30 Ondansetron HCl (Zofran Inj) 4 mg Q6H PRN IV NAUSEA/VOMITING; Start 07/07/18 at 14:30 Acetaminophen (Tylenol Tab) 650 mg Q6H PRN PO .PAIN 1-3 OR TEMP Last administered on 07/08/18at 16:18; Admin Dose 650 MG; Start 07/07/18 at 14:30 Acetaminophen/ Hydrocodone Bitart ([place] (5/325)) 1 tab Q6H PRN PO .MOD PAIN 4- 6; Start 07/07/18 at 14:30 Docusate Sodium (Colace) 100 mg Q12H PRN PO .CONSTIPATION Last administered on 07/10/18 09:02; Admin Dose 100 MG; Start 07/07/18 at 14:30 Diagnostic Test (Pha) (Accu-Chek) 1 ea 02 XX Last administered on 07/08/18at 02:05; Admin Dose 1 EA; Start 07/08/18 at 02:00 Insulin Glargine (Lantus) 9 units DAILY@2000 SC Last administered on 07/09/18at 20:27; Admin Dose 9 UNITS; Start 07/07/18 at 20:00 Insulin Aspart (Novolog Insulin Pen) NOVOLOG *MILD* ALGORITHM WITH MEALS BEDTIME SC Last administered on 07/08/18at 21:15; Admin Dose 2 UNIT; Start 07/07/18 at 17:55 Miscellaneous Information 1 ea NOTE XX ; Start 07/07/18 at 15:00 Glucose (Glutose) 15 gm Q15M PRN PO DECREASED GLUCOSE; Start 07/07/18 at 15:00 Glucose (Glutose) 22.5 gm Q15M PRN PO DECREASED GLUCOSE; Start 07/07/18 at 15:00 Dextrose (D50w Syringe) 25 ml Q15M PRN IV DECREASED GLUCOSE; Start 07/07/18 at 15:00 Dextrose (D50w Syringe) 50 ml Q15M PRN IV DECREASED GLUCOSE; Start 07/07/18 at 15:00 Glucagon (Glucagen) 1 mg Q15M PRN IM DECREASED GLUCOSE; Start 07/07/18 at 15:00 Glucose (Glutose) 15 gm Q15M PRN BUCCAL DECREASED GLUCOSE; Start 07/07/18 at 15:00 Gentamicin Sulfate (Gentamicin 0.1% Oint) 1 applic DAILY TOP Last administered on 07/10/18 09:09; Admin Dose 1 APPLIC; Start 07/08/18 at 09:00 Ascorbic Acid (Vitamin C) 1,000 mg DAILY PO Last administered on 07/10/18 09:02; Admin Dose 1,000 MG; Start 07/08/18 at 09:00 Zinc Sulfate (Zinc Sulfate) 220 mg DAILY PO Last administered on 07/10/18 09:02; Admin Dose 220 MG; Start 07/08/18 at 09:00 Mineral Oil (Eucerin Lotion) 1 applic BID TOP Last administered on 07/10/18 09:07; Admin Dose 1 APPLIC; Start 07/07/18 at 21:00 IV Flush (NS 10 ml) 10 ml PRN PRN IV FLUSH LINE; Start 07/07/18 at 17:30 Sodium Hypochlorite (Dakins Diluted (/40)) 1 applic BID TP Last administered on 07/10/18 09:07; Admin Dose 1 APPLIC; Start 07/07/18 at 23:00 Cefepime HCl 50 ml @ 100 mls/hr Q12 IVPB Last administered on 07/10/18 09:02; Admin Dose 100 MLS/HR; Start 07/08/18 at 21:00 Collagenase (Santyl) 2 applic DAILY TOP Last administered on 07/10/18 09:07; Admin Dose 2 APPLIC; Start 07/09/18 at 09:00 Tigecycline 50 mg/ Sodium Chloride 100 ml @ 200 mls/hr Q12H IVPB Last administered on 07/10/18 06:10; Admin Dose 200 MLS/HR; Start 07/09/18 at 06:00 Aspirin (Aspirin) 81 mg DAILY PO Last administered on 07/10/18 09:04; Admin Dose 81 MG; Start 07/09/18 at 12:00 BERYL DERAS MD Jul 10, 2018 11:53
[2018-07-10] MEDS ORDERED: MAGNESIUM CITRATE 300 ML BTL PO ONE (12:00)
[2018-07-10] MEDS ORDERED: LACTULOSE 30ML CUP PO ONE (12:00)
[2018-07-10 14:00] VITALS: BP 130/76; PULSE 78; RESP 18
[2018-07-10] MEDS: ACETAMINOPHEN 325 MG TAB PO PRN (16:52)
--- NOTE | 2018-07-10 16:54 | CONS ---
Consultation Date/Type/Reason Admit Date/Time Jul 07, 2018 at 12:55 Initial Consult Date SUBJECTIVE: Patient is awake, alert , resting in bed. No fevers. VS: stable T: 98.6 LABS: Reviewed. WBC-9.2 Antimicrobials: Tygacil, cefepime Microbiology: Wound culture grew multidrug-resistant Acinetobacter, enterococcus, E. coli UA CULTURE: 07/08/18 URINE CULTURE Final Organism 1 MIXED GRAM POSITIVE ORGANISMS COLONY COUNT <10,000 CFU/ml Physical examination: GEN: Well-developed well-nourished middle-aged woman who is alert in no distress. HENT: Head atraumatic normocephalic, sclera nonicteric. Neck is supple. PULM: Chest rise symmetrical, breath sounds clear. Heart: S1-S2. Abdomen soft bowel sounds present. Extremities with bilateral lower extremities dressing clean dry and intact Assessment: 1. Bilateral lower extremities gangrene/Osteomyelitis 2. Chronic kidney disease, history of hemodialysis 3. Diabetes 4. Possible UTI Plan: Pt is stable. Will need half-way IV abx for OM==> at least 6 weeks. Continue local wound care. UA culture pending. Date/Time of Note DATE: 07/10/18 TIME: 16:52 Exam/Review of Systems Exam Vitals Vital Signs Date Temp Pulse Resp B/P (MAP) Pulse Ox O2 O2 Flow FiO2 Time Delivery Rate 07/10/18 98.6 79 18 147/78 99 Room Air 07:39 (101) Intake and Output 07/09/18 07/09/18 07/10/18 1515:00 23:00 07:00 IntakeIntake Total 270 ml 870 ml 520 ml OutputOutput Total 300 ml 300 ml BalanceBalance 270 ml 570 ml 220 ml Results Result Diagram: 07/10/18 0451 07/10/18 0450 Results 24hrs Laboratory Tests Test 07/09/18 17:43 07/09/18 20:25 07/10/18 00:40 07/10/18 04:50 Bedside Glucose 97 136 Urine Color YELLOW Urine Clarity SLIGHTLY CLOUDY A Urine pH 5.0 Urine Specific 1.015 [place] Urine Ketones NEGATIVE Urine Nitrite NEGATIVE Urine Bilirubin NEGATIVE Urine NEGATIVE Urobilinogen Urine Leukocyte NEGATIVE Esterase Urine Microscopic 3 RBC Urine Microscopic 2 WBC Urine Squamous FEW Epithelial Cells Urine Yeast FEW A (Budding) Urine Hemoglobin NEGATIVE Urine Random 62.55 Creatinine Urine Random 73 Sodium Urine Glucose NEGATIVE Urine Total 252.0 H Protein Sodium Level 142 Potassium Level 4.0 Chloride Level 113 H Carbon Dioxide 18 L Level Anion Gap 11 Blood Urea 43 H Nitrogen Creatinine 1.37 H Est Glomerular 42 L Filtrat Rate mL/min Glucose Level 116 Calcium Level 9.5 Phosphorus Level 6.5 H Magnesium Level 1.9 Iron Level 21 L Total Iron 224 L Binding Capacity Percent Iron 9 L Saturation Test 07/10/18 04:51 07/10/18 08:37 07/10/18 11:40 White Blood Count 9.2 Red Blood Count 3.93 #L Hemoglobin 10.9 #L Hematocrit 33.8 #L Mean Corpuscular 86.0 Volume Mean Corpuscular 27.7 L Hemoglobin Mean Corpuscular 32.2 Hemoglobin Concen t Red Cell 13.9 Distribution Width Platelet Count 271 Mean Platelet 10.1 Volume Immature 0.300 Granulocytes % Neutrophils % 69.2 Lymphocytes % 15.7 Monocytes % 7.1 Eosinophils % 6.7 Basophils % 1.0 Nucleated Red 0.0 Blood Cells % Immature 0.030 Granulocytes # Neutrophils # 6.4 Lymphocytes # 1.5 Monocytes # 0.7 Eosinophils # 0.6 H Basophils # 0.1 Nucleated Red 0.0 Blood Cells # Bedside Glucose 111 156 Medications Medication Current Medications Atorvastatin Calcium (Lipitor) 40 mg HS PO Last administered on 07/09/18at 20:19; Admin Dose 40 MG; Start 07/07/18 at 21:00 Bethanechol Chloride (Urecholine) 10 mg TID PO Last administered on 07/10/18at 09:08; Admin Dose 10 MG; Start 07/07/18 at 21:00 Carvedilol (Coreg) 12.5 mg BID PO Last administered on 07/10/18at 09:04; Admin Dose 12.5 MG; Start 07/07/18 at 21:00 IV Flush (NS 3 ml) 3 ml PER PROTOCOL IV ; Start 07/07/18 at 14:30 Ondansetron HCl (Zofran Inj) 4 mg Q6H PRN IV NAUSEA/VOMITING; Start 07/07/18 at 14:30 Acetaminophen (Tylenol Tab) 650 mg Q6H PRN PO .PAIN 1-3 OR TEMP Last administered on 07/08/18at 16:18; Admin Dose 650 MG; Start 07/07/18 at 14:30 Acetaminophen/ Hydrocodone Bitart ([place] (5/325)) 1 tab Q6H PRN PO .MOD PAIN 4- 6; Start 07/07/18 at 14:30 Docusate Sodium (Colace) 100 mg Q12H PRN PO .CONSTIPATION Last administered on 07/10/18 09:02; Admin Dose 100 MG; Start 07/07/18 at 14:30 Diagnostic Test (Pha) (Accu-Chek) 1 ea 02 XX Last administered on 07/08/18at 02:05; Admin Dose 1 EA; Start 07/08/18 at 02:00 Insulin Glargine (Lantus) 9 units DAILY@2000 SC Last administered on 07/09/18 20:27; Admin Dose 9 UNITS; Start 07/07/18 at 20:00 Insulin Aspart (Novolog Insulin Pen) NOVOLOG *MILD* ALGORITHM WITH MEALS BEDTIME SC Last administered on 07/10/18at 13:57; Admin Dose 1 UNIT; Start 07/07/18 at 17:55 Miscellaneous Information 1 ea NOTE XX ; Start 07/07/18 at 15:00 Glucose (Glutose) 15 gm Q15M PRN PO DECREASED GLUCOSE; Start 07/07/18 at 15:00 Glucose (Glutose) 22.5 gm Q15M PRN PO DECREASED GLUCOSE; Start 07/07/18 at 15:00 Dextrose (D50w Syringe) 25 ml Q15M PRN IV DECREASED GLUCOSE; Start 07/07/18 at 15:00 Dextrose (D50w Syringe) 50 ml Q15M PRN IV DECREASED GLUCOSE; Start 07/07/18 at 15:00 Glucagon (Glucagen) 1 mg Q15M PRN IM DECREASED GLUCOSE; Start 07/07/18 at 15:00 Glucose (Glutose) 15 gm Q15M PRN BUCCAL DECREASED GLUCOSE; Start 07/07/18 at 15:00 Gentamicin Sulfate (Gentamicin 0.1% Oint) 1 applic DAILY TOP Last administered on 07/10/18at 09:09; Admin Dose 1 APPLIC; Start 07/08/18 at 09:00 Ascorbic Acid (Vitamin C) 1,000 mg DAILY PO Last administered on 07/10/18at 09:02; Admin Dose 1,000 MG; Start 07/08/18 at 09:00 Zinc Sulfate (Zinc Sulfate) 220 mg DAILY PO Last administered on 07/10/18 09:02; Admin Dose 220 MG; Start 07/08/18 at 09:00 Mineral Oil (Eucerin Lotion) 1 applic BID TOP Last administered on 07/10/18 09:07; Admin Dose 1 APPLIC; Start 07/07/18 at 21:00 IV Flush (NS 10 ml) 10 ml PRN PRN IV FLUSH LINE; Start 07/07/18 at 17:30 Sodium Hypochlorite (Dakins Diluted ()) 1 applic BID TP Last administered on 07/10/18 09:07; Admin Dose 1 APPLIC; Start 07/07/18 at 23:00 Cefepime HCl 50 ml @ 100 mls/hr Q12 IVPB Last administered on 07/10/18 09:02; Admin Dose 100 MLS/HR; Start 07/08/18 at 21:00 Collagenase (Santyl) 2 applic DAILY TOP Last administered on 07/10/18 09:07; Admin Dose 2 APPLIC; Start 07/09/18 at 09:00 Tigecycline 50 mg/ Sodium Chloride 100 ml @ 200 mls/hr Q12H IVPB Last administered on 07/10/18 16:51; Admin Dose 200 MLS/HR; Start 07/09/18 at 06:00 Aspirin (Aspirin) 81 mg DAILY PO Last administered on 07/10/18 09:04; Admin Dose 81 MG; Start 07/09/18 at 12:00 Nifedipine (Procardia Xl) 30 mg DAILY PO ; Start 07/11/18 at 09:00 NIMESH DAWKINS Jul 10, 2018 16:54
[2018-07-10] MEDS ORDERED: SOD FERRIC GLUC COMPLX 125 MG in SOD CHLORIDE 0.9% 100 ML IVPB ONE (18:30)
[2018-07-10 19:15] VITALS: BP 125/68; PULSE 81; RESP 18
[2018-07-10] MEDS: ATORVASTATIN 40 MG TAB PO SCH (21:05)
[2018-07-10] MEDS: INSULIN GLARGINE [LANTus] (100 UNITS/ML) SYG SC SCH (21:21)
[2018-07-11] MEDS: ACCU-CHEK XX SCH (01:53)
[2018-07-11 03:30] VITALS: BP 101/58; PULSE 76; RESP 18
[2018-07-11 07:00] VITALS: BP 142/74; PULSE 64; RESP 18
[2018-07-11] MEDS: INSULIN ASPART [NOVOLOG] 3 ML PEN SC SCH ×4 (07:50→21:00)
[2018-07-11] MEDS: TIGECYCLINE 50 MG in SOD CHLORIDE 0.9% 100 ML IVPB SCH ×2 (07:56→17:55)
[2018-07-11] MEDS: BETHANECHOL 10 MG TAB PO SCH ×3 (08:32→21:07)
[2018-07-11] MEDS: ASCORBIC ACID 500 MG TAB PO SCH (08:32)
[2018-07-11] MEDS: ASPIRIN 81 MG TAB PO SCH (08:32)
[2018-07-11] MEDS: ZINC SULFATE 220 MG CAP PO SCH (08:32)
[2018-07-11] MEDS: CEFEPIME 1GM/50 ML (PMX) 50 ML IVPB SCH ×2 (08:33→21:08)
[2018-07-11] MEDS: DAKINS 0.0125%(1/40) 473 ML SOLUTION TP SCH ×2 (08:36→21:11)
[2018-07-11] MEDS: COLLAGENASE 5 GM (UD JAR) TOP SCH (08:36)
[2018-07-11] MEDS: LACTULOSE 30ML CUP PO SCH ×2 (08:44→13:41)
[2018-07-11] MEDS: NIFEdipine (XL) 60 MG TAB PO SCH (09:26)
--- NOTE | 2018-07-11 10:21 | PN ---
Date/Time of Note Date/Time of Note DATE: 07/11/18 TIME: 10:18 Assessment/Plan VTE Prophylaxis Risk score (from Ns)>0 risk: 6 SCD applied (from [facility] [place]): No SCD contraindicated: bilateral LE trauma Pharmacological prophylaxis: heparin Lines/Catheters IV C[facility]ter Type (from [facility]): PICC Line Central line still needed: Yes Urinary Cath still in place: No Assessment/Plan Problems: (1) Foot osteomyelitis, left Status: Chronic Comment: As per podiatry. The patient's on antibiotics and being treated there is supposed to ultimately do more definitive procedure. Qualifiers: Osteomyelitis type: other acute Qualified Codes: M86.172 - Other acute osteomyelitis, left ankle and foot (2) Foot osteomyelitis, right Status: Chronic Comment: As per podiatry. He with IV antibiotic therapy definitive procedure pending Qualifiers: Osteomyelitis type: other acute Qualified Codes: M86.171 - Other acute osteomyelitis, right ankle and foot (3) Diabetes mellitus type 2 in nonobese Status: Chronic Comment: Adequate glycemic control (4) Neurogenic bladder Status: Chronic Comment: Noted. A question of whether there is other autonomic dysfunction is raised. Would normally do formalized orthostatic blood pressure but she is nonweightbearing to the feet (5) Essential hypertension Status: Chronic Comment: Adequate control (6) Chronic kidney disease, stage III (moderate) Status: Chronic Comment: Stable at this time (7) Acute kidney injury (nontraumatic) Status: Chronic Comment: Holding stable. (8) Anemia due to chronic kidney disease Status: Chronic Comment: Part of this is an iron deficiency anemia which is being repleted Result Diagram: 07/10/18 0451 07/10/18 0450 Results 24hrs Laboratory Tests Test 07/10/18 11:40 07/10/18 16:56 07/10/18 21:18 07/11/18 02:11 Bedside Glucose 156 134 166 110 Test 07/11/18 08:30 Bedside Glucose 104 Subjective 24 Hr Interval Summary Free Text/Dictation Patient reports no major changes. Constitutional: no complaints (No fevers chills or sweats) Respiratory: no complaints Cardiovascular: no complaints Gastrointestinal: no complaints Genitourinary: no complaints Exam/Review of Systems Exam Vitals Vital Signs Date Temp Pulse Resp B/P (MAP) Pulse Ox O2 O2 Flow FiO2 Time Delivery Rate 07/11/18 97.5 64 18 142/74 100 Room Air 07:00 (96) Intake and Output 07/10/18 07/10/18 07/11/18 1515:00 23:00 07:00 IntakeIntake Total 530 ml 1710 ml 420 ml OutputOutput Total 500 ml 400 ml BalanceBalance 30 ml 1310 ml 420 ml Constitutional: alert, oriented Neck: supple, non-tender Respiratory: clear to auscultation, normal air movement Cardiovascular: regular rate and rhythm, nl pulses Gastrointestinal: soft, nl liver, spleen, non-tender Results Results 24hrs Laboratory Tests Test 07/10/18 11:40 07/10/18 16:56 07/10/18 21:18 07/11/18 02:11 Bedside Glucose 156 134 166 110 Test 07/11/18 08:30 Bedside Glucose 104 Medications Medication Current Medications Atorvastatin Calcium (Lipitor) 40 mg HS PO Last administered on 07/10/18at 21:05; Admin Dose 40 MG; Start 07/07/18 at 21:00 Bethanechol Chloride (Urecholine) 10 mg TID PO Last administered on 07/11/18at 08:32; Admin Dose 10 MG; Start 07/07/18 at 21:00 Carvedilol (Coreg) 12.5 mg BID PO Last administered on 07/11/18at 08:32; Admin Dose 12.5 MG; Start 07/07/18 at 21:00 IV Flush (NS 3 ml) 3 ml PER PROTOCOL IV ; Start 07/07/18 at 14:30 Ondansetron HCl (Zofran Inj) 4 mg Q6H PRN IV NAUSEA/VOMITING; Start 07/07/18 at 14:30 Acetaminophen (Tylenol Tab) 650 mg Q6H PRN PO .PAIN 1-3 OR TEMP Last admini stered on 07/10/18at 16:52; Admin Dose 650 MG; Start 07/07/18 at 14:30 Acetaminophen/ Hydrocodone Bitart ([place] (5/325)) 1 tab Q6H PRN PO .MOD PAIN 4- 6; Start 07/07/18 at 14:30 Docusate Sodium (Colace) 100 mg Q12H PRN PO .CONSTIPATION Last administered on 07/10/18at 09:02; Admin Dose 100 MG; Start 07/07/18 at 14:30 Diagnostic Test (Pha) (Accu-Chek) 1 ea 02 XX Last administered on 07/08/18at 02:05; Admin Dose 1 EA; Start 07/08/18 at 02:00 Insulin Glargine (Lantus) 9 units DAILY@2000 SC Last administered on 07/10/18at 21:21; Admin Dose 9 UNITS; Start 07/07/18 at 20:00 Insulin Aspart (Novolog Insulin Pen) NOVOLOG *MILD* ALGORITHM WITH MEALS BEDTIME SC Last administered on 07/10/18at 13:57; Admin Dose 1 UNIT; Start 07/07/18 at 17:55 Miscellaneous Information 1 ea NOTE XX ; Start 07/07/18 at 15:00 Glucose (Glutose) 15 gm Q15M PRN PO DECREASED GLUCOSE; Start 07/07/18 at 15:00 Glucose (Glutose) 22.5 gm Q15M PRN PO DECREASED GLUCOSE; Start 07/07/18 at 15:00 Dextrose (D50w Syringe) 25 ml Q15M PRN IV DECREASED GLUCOSE; Start 07/07/18 at 15:00 Dextrose (D50w Syringe) 50 ml Q15M PRN IV DECREASED GLUCOSE; Start 07/07/18 at 15:00 Glucagon (Glucagen) 1 mg Q15M PRN IM DECREASED GLUCOSE; Start 07/07/18 at 15:00 Glucose (Glutose) 15 gm Q15M PRN BUCCAL DECREASED GLUCOSE; Start 07/07/18 at 15 :00 Gentamicin Sulfate (Gentamicin 0.1% Oint) 1 applic DAILY TOP Last administered on 07/10/18at 09:09; Admin Dose 1 APPLIC; Start 07/08/18 at 09:00 Ascorbic Acid (Vitamin C) 1,000 mg DAILY PO Last administered on 07/11/18at 08:32; Admin Dose 1,000 MG; Start 07/08/18 at 09:00 Zinc Sulfate (Zinc Sulfate) 220 mg DAILY PO Last administered on 07/11/18at 08:32; Admin Dose 220 MG; Start 07/08/18 at 09:00 Mineral Oil (Eucerin Lotion) 1 applic BID TOP Last administered on 07/10/18at 21:27; Admin Dose 1 APPLIC; Start 07/07/18 at 21:00 IV Flush (NS 10 ml) 10 ml PRN PRN IV FLUSH LINE; Start 07/07/18 at 17:30 Sodium Hypochlorite (Dakins Diluted ()) 1 applic BID TP Last administered on 07/11/18at 08:36; Admin Dose 1 APPLIC; Start 07/07/18 at 23:00 Cefepime HCl 50 ml @ 100 mls/hr Q12 IVPB Last administered on 07/11/18at 08:33; Admin Dose 100 MLS/HR; Start 07/08/18 at 21:00 Tigecycline 50 mg/ Sodium Chloride 100 ml @ 200 mls/hr Q12H IVPB Last administered on 07/11/18at 07:56; Admin Dose 200 MLS/HR; Start 07/09/18 at 06:00 Aspirin (Aspirin) 81 mg DAILY PO Last administered on 07/11/18at 08:32; Admin Dose 81 MG; Start 07/09/18 at 12:00 Nifedipine (Procardia Xl) 30 mg DAILY PO Last administered on 07/11/18at 09:26; Admin Dose 30 MG; Start 07/11/18 at 09:00 Ferric Sodium Gluconate Complex 125 mg/Sodium Chloride 100 ml @ 100 mls/hr DAILY@1300 IVPB ; Start 07/11/18 at 13:00; Stop 07/13/18 at 13:59 Lactulose (Enulose) 20 gm Q6 PO Last administered on 07/11/18at 08:44; Admin Dose 20 GM; Start 07/11/18 at 07:00 Collagenase (Santyl) 4 applic DAILY TOP ; Start 07/12/18 at 09:00 BERYL DERAS MD Jul 11, 2018 10:21
[2018-07-11] MEDS: MINERAL OIL 240 ML LOT TOP SCH ×2 (11:30→21:10)
[2018-07-11] MEDS: GENTAMICIN 0.1% 15 GM OINT TOP SCH (11:30)
--- NOTE | 2018-07-11 12:14 | CONS ---
Assessment/Plan Assessment/Plan Assessment/Plan (Daily) 1. Nonoliguric acute kidney injury on top of proteinuric chronic kidney disease stage III: Etiology of acute kidney injury is likely secondary to hemodynamics. The patient's renal function has improved with supportive care, IV fluids. Cr likely near baseline. will start acei/arb once renal function stabilizes. no labs today 2. Anemia. Monitor hemoglobin and hematocrit levels. 3. Mineral bone disorder. Monitor calcium and phosphorus levels. 4. Metabolic acidosis secondary to acute kidney injury. if HCO3 continues to be low, will start bicitra 5. Hypertension. Continue current blood pressure regimen. 6. Bilateral gangrenous foot ulcers with osteomyelitis. The patient is followed by podiatry, pending possible transmetatarsal amputation. Continue to monitor. 7. Neurogenic bladder. Continue to monitor. Continue bethanechol. 8. Diabetes. Continue current insulin regimen. 9. History of cerebrovascular accident. Continue medical management. 10. possible uti: cont abx. f/u cx Consultation Date/Type/Reason Admit Date/Time Jul 07, 2018 at 12:55 Initial Consult Date Date/Time of Note DATE: 07/11/18 TIME: 12:13 24 HR Interval Summary Free Text/Dictation denies n/v, shortness of breath or urinary issues dw rn gen nad cv rrr pulm ctab abd soft, nd, nt +bs ext: no edema Exam/Review of Systems Exam Vitals Vital Signs Date Temp Pulse Resp B/P (MAP) Pulse Ox O2 O2 Flow FiO2 Time Delivery Rate 07/11/18 97.5 64 18 142/74 100 Room Air 07:00 (96) Intake and Output 07/10/18 07/10/18 07/11/18 1515:00 23:00 07:00 IntakeIntake Total 530 ml 1710 ml 420 ml OutputOutput Total 500 ml 400 ml BalanceBalance 30 ml 1310 ml 420 ml Results Result Diagram: 07/10/18 0451 07/10/18 0450 Results 24hrs Laboratory Tests Test 07/10/18 16:56 07/10/18 21:18 07/11/18 02:11 07/11/18 08:30 Bedside Glucose 134 166 110 104 Medications Medication Current Medications Atorvastatin Calcium (Lipitor) 40 mg HS PO Last administered on 07/10/18at 21:05; Admin Dose 40 MG; Start 07/07/18 at 21:00 Bethanechol Chloride (Urecholine) 10 mg TID PO Last administered on 07/11/18 08:32; Admin Dose 10 MG; Start 07/07/18 at 21:00 Carvedilol (Coreg) 12.5 mg BID PO Last administered on 07/11/18 08:32; Admin Dose 12.5 MG; Start 07/07/18 at 21:00 IV Flush (NS 3 ml) 3 ml PER PROTOCOL IV ; Start 07/07/18 at 14:30 Ondansetron HCl (Zofran Inj) 4 mg Q6H PRN IV NAUSEA/VOMITING; Start 07/07/18 at 14:30 Acetaminophen (Tylenol Tab) 650 mg Q6H PRN PO .PAIN 1-3 OR TEMP Last a dministered on 07/10/18at 16:52; Admin Dose 650 MG; Start 07/07/18 at 14:30 Acetaminophen/ Hydrocodone Bitart ([place] (5/325)) 1 tab Q6H PRN PO .MOD PAIN 4- 6; Start 07/07/18 at 14:30 Docusate Sodium (Colace) 100 mg Q12H PRN PO .CONSTIPATION Last administered on 07/10/18at 09:02; Admin Dose 100 MG; Start 07/07/18 at 14:30 Diagnostic Test (Pha) (Accu-Chek) 1 ea 02 XX Last administered on 07/08/18at 0 2:05; Admin Dose 1 EA; Start 07/08/18 at 02:00 Insulin Glargine (Lantus) 9 units DAILY@2000 SC Last administered on 07/10/18at 21:21; Admin Dose 9 UNITS; Start 07/07/18 at 20:00 Insulin Aspart (Novolog Insulin Pen) NOVOLOG *MILD* ALGORITHM WITH MEALS BEDTIME SC Last administered on 07/10/18at 13:57; Admin Dose 1 UNIT; Start 07/07/18 at 17:55 Miscellaneous Information 1 ea NOTE XX ; Start 07/07/18 at 15:00 Glucose (Glutose) 15 gm Q15M PRN PO DECREASED GLUCOSE; Start 07/07/18 at 15:00 Glucose (Glutose) 22.5 gm Q15M PRN PO DECREASED GLUCOSE; Start 07/07/18 at 15:00 Dextrose (D50w Syringe) 25 ml Q15M PRN IV DECREASED GLUCOSE; Start 07/07/18 at 15:00 Dextrose (D50w Syringe) 50 ml Q15M PRN IV DECREASED GLUCOSE; Start 07/07/18 at 15:00 Glucagon (Glucagen) 1 mg Q15M PRN IM DECREASED GLUCOSE; Start 07/07/18 at 15:00 Glucose (Glutose) 15 gm Q15M PRN BUCCAL DECREASED GLUCOSE; Start 07/07/18 at 15:00 Gentamicin Sulfate (Gentamicin 0.1% Oint) 1 applic DAILY TOP Last administered on 07/11/18 11:30; Admin Dose 1 APPLIC; Start 07/08/18 at 09:00 Ascorbic Acid (Vitamin C) 1,000 mg DAILY PO Last administered on 07/11/18 08:32; Admin Dose 1,000 MG; Start 07/08/18 at 09:00 Zinc Sulfate (Zinc Sulfate) 220 mg DAILY PO Last administered on 07/11/18 08:32; Admin Dose 220 MG; Start 07/08/18 at 09:00 Mineral Oil (Eucerin Lotion) 1 applic BID TOP Last administered on 07/11/18 11:30; Admin Dose 1 APPLIC; Start 07/07/18 at 21:00 IV Flush (NS 10 ml) 10 ml PRN PRN IV FLUSH LINE; Start 07/07/18 at 17:30 Sodium Hypochlorite (Dakins Diluted (1/40)) 1 applic BID TP Last administered on 07/11/18 08:36; Admin Dose 1 APPLIC; Start 07/07/18 at 23:00 Cefepime HCl 50 ml @ 100 mls/hr Q12 IVPB Last administered on 07/11/18 08:33; Admin Dose 100 MLS/HR; Start 07/08/18 at 21:00 Tigecycline 50 mg/ Sodium Chloride 100 ml @ 200 mls/hr Q12H IVPB Last administered on 07/11/18 07:56; Admin Dose 200 MLS/HR; Start 07/09/18 at 06:00 Aspirin (Aspirin) 81 mg DAILY PO Last administered on 07/11/18 08:32; Admin Dose 81 MG; Start 07/09/18 at 12:00 Nifedipine (Procardia Xl) 30 mg DAILY PO Last administered on 4/21/19at 09:26; Admin Dose 30 MG; Start 07/11/18 at 09:00 Ferric Sodium Gluconate Complex 125 mg/Sodium Chloride 100 ml @ 100 mls/hr DAILY@1300 IVPB ; Start 07/11/18 at 13:00; Stop 07/13/18 at 13:59 Lactulose (Enulose) 20 gm Q6 PO Last administered on 07/11/18at 08:44; Admin Dose 20 GM; Start 07/11/18 at 07:00 Collagenase (Santyl) 4 applic DAILY TOP ; Start 07/12/18 at 09:00 BRENNON HASSAN MD Jul 11, 2018 12:14
[2018-07-11] MEDS: SOD FERRIC GLUC COMPLX 125 MG in SOD CHLORIDE 0.9% 100 ML IVPB SCH (13:42)
[2018-07-11 13:53] VITALS: BP_SYST 149; BP_SYST 75; BP_DIAS 75; PULSE 80; RESP 18
--- NOTE | 2018-07-11 16:23 | CONS ---
Consultation Date/Type/Reason Admit Date/Time Jul 07, 2018 at 12:55 Initial Consult Date SUBJECTIVE: Patient is awake, afebrile. No acute events over night. VS: stable T: 97.8 LABS: Reviewed. Antimicrobials: Tygacil, cefepime Microbiology: Wound culture grew multidrug-resistant Acinetobacter, enterococcus, E. coli UA CULTURE: 07/08/18 URINE CULTURE Final Organism 1 MIXED GRAM POSITIVE ORGANISMS COLONY COUNT <10,000 CFU/ml Physical examination: GEN: Well-developed well-nourished middle-aged woman who is alert in no distress. HENT: Head atraumatic normocephalic, sclera nonicteric. Neck is supple. PULM: Chest rise symmetrical, breath sounds clear. Heart: S1-S2. Abdomen soft bowel sounds present. Extremities with bilateral lower extremities dressing clean dry and intact Assessment: 1. Bilateral lower extremities gangrene/Osteomyelitis 2. Chronic kidney disease, history of hemodialysis 3. Diabetes 4. Possible UTI Plan: Pt is stable. Will need director long term care IV abx for OM==> at least 6 weeks. Continue local wound care. Date/Time of Note DATE: 07/11/18 TIME: 16:21 Exam/Review of Systems Exam Vitals Vital Signs Date Temp Pulse Resp B/P (MAP) Pulse Ox O2 O2 Flow FiO2 Time Delivery Rate 07/11/18 97.8 80 18 75/ 100 Room Air 13:53 Intake and Output 07/10/18 07/10/18 07/11/18 1515:00 23:00 07:00 IntakeIntake Total 530 ml 1710 ml 420 ml OutputOutput Total 500 ml 400 ml BalanceBalance 30 ml 1310 ml 420 ml Results Result Diagram: 07/10/18 0451 07/10/18 0450 Results 24hrs Laboratory Tests Test 07/10/18 16:56 07/10/18 21:18 07/11/18 02:11 07/11/18 08:30 Bedside Glucose 134 166 110 104 Test 07/11/18 12:48 Bedside Glucose 136 Medications Medication Current Medications Atorvastatin Calcium (Lipitor) 40 mg HS PO Last administered on 07/10/18at 21:05; Admin Dose 40 MG; Start 07/07/18 at 21:00 Bethanechol Chloride (Urecholine) 10 mg TID PO Last administered on 07/11/18at 12:47; Admin Dose 10 MG; Start 07/07/18 at 21:00 Carvedilol (Coreg) 12.5 mg BID PO Last administered on 07/11/18at 08:32; Admin Dose 12.5 MG; Start 07/07/18 at 21:00 IV Flush (NS 3 ml) 3 ml PER PROTOCOL IV ; Start 07/07/18 at 14:30 Ondansetron HCl (Zofran Inj) 4 mg Q6H PRN IV NAUSEA/VOMITING; Start 07/07/18 at 14:30 Acetaminophen (Tylenol Tab) 650 mg Q6H PRN PO .PAIN 1-3 OR TEMP Last administered on 07/10/18at 16:52; Admin Dose 650 MG; Start 07/07/18 at 14:30 Acetaminophen/ Hydrocodone Bitart ([place] (5/325)) 1 tab Q6H PRN PO .MOD PAIN 4- 6; Start 07/07/18 at 14:30 Docusate Sodium (Colace) 100 mg Q12H PRN PO .CONSTIPATION Last administered on 07/10/18at 09:02; Admin Dose 100 MG; Start 07/07/18 at 14:30 Diagnostic Test (Pha) (Accu-Chek) 1 ea 02 XX Last administered on 07/08/18at 02:05; Admin Dose 1 EA; Start 07/08/18 at 02:00 Insulin Glargine (Lantus) 9 units DAILY@2000 SC Last administered on 07/10/18at 21:21; Admin Dose 9 UNITS; Start 07/07/18 at 20:00 Insulin Aspart (Novolog Insulin Pen) NOVOLOG *MILD* ALGORITHM WITH MEALS BEDTIME SC Last administered on 07/10/18at 13:57; Admin Dose 1 UNIT; Start 07/07/18 at 17:55 Miscellaneous Information 1 ea NOTE XX ; Start 07/07/18 at 15:00 Glucose (Glutose) 15 gm Q15M PRN PO DECREASED GLUCOSE; Start 07/07/18 at 15:00 Glucose (Glutose) 22.5 gm Q15M PRN PO DECREASED GLUCOSE; Start 07/07/18 at 15:00 Dextrose (D50w Syringe) 25 ml Q15M PRN IV DECREASED GLUCOSE; Start 07/07/18 at 15:00 Dextrose (D50w Syringe) 50 ml Q15M PRN IV DECREASED GLUCOSE; Start 07/07/18 at 15:00 Glucagon (Glucagen) 1 mg Q15M PRN IM DECREASED GLUCOSE; Start 07/07/18 at 15:00 Glucose (Glutose) 15 gm Q15M PRN BUCCAL DECREASED GLUCOSE; Start 07/07/18 at 15:00 Gentamicin Sulfate (Gentamicin 0.1% Oint) 1 applic DAILY TOP Last administered on 07/11/18 11:30; Admin Dose 1 APPLIC; Start 07/08/18 at 09:00 Ascorbic Acid (Vitamin C) 1,000 mg DAILY PO Last administered on 07/11/18 08:32; Admin Dose 1,000 MG; Start 07/08/18 at 09:00 Zinc Sulfate (Zinc Sulfate) 220 mg DAILY PO Last administered on 07/11/18 08:32; Admin Dose 220 MG; Start 07/08/18 at 09:00 Mineral Oil (Eucerin Lotion) 1 applic BID TOP Last administered on 07/11/18 11:30; Admin Dose 1 APPLIC; Start 07/07/18 at 21:00 IV Flush (NS 10 ml) 10 ml PRN PRN IV FLUSH LINE; Start 07/07/18 at 17:30 Sodium Hypochlorite (Dakins Diluted (40)) 1 applic BID TP Last administered on 07/11/18 08:36; Admin Dose 1 APPLIC; Start 07/07/18 at 23:00 Cefepime HCl 50 ml @ 100 mls/hr Q12 IVPB Last administered on 07/11/18 08:33; Admin Dose 100 MLS/HR; Start 07/08/18 at 21:00 Tigecycline 50 mg/ Sodium Chloride 100 ml @ 200 mls/hr Q12H IVPB Last administered on 07/11/18 07:56; Admin Dose 200 MLS/HR; Start 07/09/18 at 06:00 Aspirin (Aspirin) 81 mg DAILY PO Last administered on 07/11/18 08:32; Admin Dose 81 MG; Start 07/09/18 at 12:00 Nifedipine (Procardia Xl) 30 mg DAILY PO Last administered on 07/11/18 09:26; Admin Dose 30 MG; Start 07/11/18 at 09:00 Ferric Sodium Gluconate Complex 125 mg/Sodium Chloride 100 ml @ 100 mls/hr DAILY@1300 IVPB Last administered on 07/11/18at 13:42; Admin Dose 100 MLS/HR; Start 07/11/18 at 13:00; Stop 07/13/18 at 13:59 Collagenase (Santyl) 4 applic DAILY TOP ; Start 07/12/18 at 09:00 NIMESH DAWKINS Jul 11, 2018 16:23
[2018-07-11] MEDS: ACETAMINOPHEN 325 MG TAB PO PRN (18:44)
[2018-07-11 20:05] VITALS: BP 111/66; PULSE 72; RESP 16
[2018-07-11] MEDS: ATORVASTATIN 40 MG TAB PO SCH (21:07)
[2018-07-11] MEDS: INSULIN GLARGINE [LANTus] (100 UNITS/ML) SYG SC SCH (21:20)
[2018-07-12] MEDS: ACCU-CHEK XX SCH (02:00)
[2018-07-12 02:05] VITALS: BP 103/64; PULSE 75; RESP 18
[2018-07-12] MEDS ORDERED: ALTEPLASE (CATHFLO) 2 MG INJ CATHETER PRN (05:30)
[2018-07-12] MEDS: TIGECYCLINE 50 MG in SOD CHLORIDE 0.9% 100 ML IVPB SCH ×2 (05:59→18:16)
[2018-07-12] MEDS: INSULIN ASPART [NOVOLOG] 3 ML PEN SC SCH ×4 (07:50→20:40)
[2018-07-12 08:00] VITALS: BP 151/84; PULSE 66; RESP 18
[2018-07-12] MEDS: CEFEPIME 1GM/50 ML (PMX) 50 ML IVPB SCH ×2 (08:45→20:26)
[2018-07-12] MEDS: ASCORBIC ACID 500 MG TAB PO SCH (08:47)
[2018-07-12] MEDS: BETHANECHOL 10 MG TAB PO SCH ×3 (08:47→20:25)
[2018-07-12] MEDS: ZINC SULFATE 220 MG CAP PO SCH (08:47)
[2018-07-12] MEDS: ASPIRIN 81 MG TAB PO SCH (08:48)
[2018-07-12] MEDS: NIFEdipine (XL) 60 MG TAB PO SCH (08:50)
[2018-07-12] MEDS ORDERED: COLLAGENASE 5 GM (UD JAR) TOP SCH (09:00)
--- NOTE | 2018-07-12 09:34 | PN ---
DATE: 07/12/2018 SUBJECTIVE: The patient is stable, no events overnight. No fevers, chills, nausea, vomiting. OBJECTIVE: VITAL SIGNS: Blood pressure is 151/84, respiration 18, pulse 66, temperature 97.6. HEENT: Head is normocephalic. NECK: Supple. HEART: Regular rate. LUNGS: Show diminished breath sounds at the base. ABDOMEN: Soft, nontender to palpation without rebound or guarding. EXTREMITIES: Negative for clubbing, cyanosis, no edema. DERMATOLOGIC: No rashes. MUSCULOSKELETAL: No joint effusion. NEUROLOGIC: No change in exam. MEDICATIONS: Reviewed. LABORATORY DATA: Has been reviewed. ASSESSMENT AND PLAN: 1. Nonoliguric acute kidney injury on top of chronic kidney disease stage III. Etiology of acute ki dney injury is secondary to hemodynamics. Renal function appears to be improving with supportive car e. Continue current treatment plan, supportive care, renally dose all meds. 2. Anemia. Continue to monitor hemoglobin and hematocrit levels. 3. Mineral bone disorder, monitor calcium and phosphorus levels. 4. Metabolic acidosis secondary to acute kidney injury and chronic kidney disease. Continue Bicitra . 5. Hypertension. Continue current blood pressure regimen. 6. Bilateral gangrenous foot ulcers with osteomyelitis. Continue to follow up with podiatry. The p atient is pending possible transmetatarsal amputation. 7. Neurogenic bladder. Continue to monitor. 8. Diabetes. Continue current insulin regimen. 9. History of cerebrovascular accident. Dictated By: PARI AMAYA/NTS Conf#: [id number] DID#: [id number] CC: TALI ROBLES MD;*EndCC*
[2018-07-12] MEDS: SOD FERRIC GLUC COMPLX 125 MG in SOD CHLORIDE 0.9% 100 ML IVPB SCH (13:02)
[2018-07-12] MEDS: DAKINS 0.0125%(1/40) 473 ML SOLUTION TP SCH ×2 (13:08→20:29)
[2018-07-12] MEDS: MINERAL OIL 240 ML LOT TOP SCH ×2 (13:09→20:27)
--- NOTE | 2018-07-12 14:19 | CONS ---
Assessment/Plan Assessment/Plan Hospital Course (Demo Recall) No acute changes, awake, looks comfortable, no fevers Antimicrobials: Tygacil, cefepime Microbiology: Wound culture grew multidrug-resistant Acinetobacter, enterococcus, E. coli Physical examination: Well-developed well-nourished middle-aged woman who is alert in no distress. Head atraumatic normocephalic sclera nonicteric. Neck is supple. Chest rise symmetrical, breath sounds clear. Heart: S1-S2. Abdomen soft bowel sounds present. Extremities with bilateral lower extremities angella ssing clean dry and intact Assessment: 1. Bilateral lower extremities gangrene/Osteomyelitis 2. Chronic kidney disease, history of hemodialysis 3. Diabetes 4. RUE PICC Plan: Remains stable, continue abx, plan for surgical debridement Consultation Date/Type/Reason Admit Date/Time Jul 07, 2018 at 12:55 Initial Consult Date Type of Consult id Date/Time of Note DATE: 07/12/18 TIME: 14:18 Exam/Review of Systems Exam Vitals Vital Signs Date Temp Pulse Resp B/P (MAP) Pulse Ox O2 O2 Flow FiO2 Time Delivery Rate 07/12/18 97.6 66 18 151/84 100 08:00 (106) 07/11/18 Room Air 13:53 Intake and Output 07/11/18 07/11/18 07/12/18 1515:00 23:00 07:00 IntakeIntake Total 250 ml 1650 ml 200 ml OutputOutput Total 400 ml 1000 ml BalanceBalance -150 ml 650 ml 200 ml Results Result Diagram: 07/12/18 0519 07/12/18 0519 Results 24hrs Laboratory Tests Test 07/11/18 17:55 07/11/18 20:59 07/12/18 05:19 07/12/18 08:44 Bedside Glucose 115 129 96 White Blood Count 10.4 Red Blood Count 3.81 L Hemoglobin 10.3 L Hematocrit 32.6 L Mean Corpuscular 85.6 Volume Mean Corpuscular 27.0 L Hemoglobin Mean Corpuscular 31.6 L Hemoglobin Concent Red Cell 14.0 Distribution Width Platelet Count 359 # Mean Platelet Volume 10.3 Immature 0.500 H Granulocytes % Neutrophils % 68.5 Lymphocytes % 16.5 Monocytes % 6.8 Eosinophils % 6.5 Basophils % 1.2 Nucleated Red Blood 0.0 Cells % Immature 0.050 H Granulocytes # Neutrophils # 7.1 Lymphocytes # 1.7 Monocytes # 0.7 Eosinophils # 0.7 H Basophils # 0.1 Nucleated Red Blood 0.0 Cells # Sodium Level 141 Potassium Level 4.1 Chloride Level 114 H Carbon Dioxide Level 17 L Anion Gap 10 Blood Urea Nitrogen 51 H Creatinine 1.19 H Est Glomerular 49 L Filtrat Rate mL/min Glucose Level 90 Calcium Level 9.5 Phosphorus Level 5.2 H Magnesium Level 2.1 Test 07/12/18 12:57 Bedside Glucose 104 Medications Medication Current Medications Atorvastatin Calcium (Lipitor) 40 mg HS PO Last administered on 07/11/18 21:07; Admin Dose 40 MG; Start 07/07/18 at 21:00 Bethanechol Chloride (Urecholine) 10 mg TID PO Last administered on 07/12/18 12:58; Admin Dose 10 MG; Start 07/07/18 at 21:00 Carvedilol (Coreg) 12.5 mg BID PO Last administered on 07/12/18 08:49; Admin Dose 12.5 MG; Start 07/07/18 at 21:00 IV Flush (NS 3 ml) 3 ml PER PROTOCOL IV ; Start 07/07/18 at 14:30 Ondansetron HCl (Zofran Inj) 4 mg Q6H PRN IV NAUSEA/VOMITING; Start 07/07/18 at 14:30 Acetaminophen (Tylenol Tab) 650 mg Q6H PRN PO .PAIN 1-3 OR TEMP Last administered on 07/11/18 18:44; Admin Dose 650 MG; Start 07/07/18 at 14:30 Acetaminophen/ Hydrocodone Bitart ([place] (5/325)) 1 tab Q6H PRN PO .MOD PAIN 4- 6; Start 07/07/18 at 14:30 Docusate Sodium (Colace) 100 mg Q12H PRN PO .CONSTIPATION Last administered on 07/10/18 09:02; Admin Dose 100 MG; Start 07/07/18 at 14:30 Diagnostic Test (Pha) (Accu-Chek) 1 ea 02 XX Last administered on 07/08/18 02:05; Admin Dose 1 EA; Start 07/08/18 at 02:00 Insulin Glargine (Lantus) 9 units DAILY@2000 SC Last administered on 07/11/18 21:20; Admin Dose 9 UNITS; Start 07/07/18 at 20:00 Insulin Aspart (Novolog Insulin Pen) NOVOLOG *MILD* ALGORITHM WITH MEALS BEDTIME SC Last administered on 07/10/18at 13:57; Admin Dose 1 UNIT; Start 07/07/18 at 17:55 Miscellaneous Information 1 ea NOTE XX ; Start 07/07/18 at 15:00 Glucose (Glutose) 15 gm Q15M PRN PO DECREASED GLUCOSE; Start 07/07/18 at 15:00 Glucose (Glutose) 22.5 gm Q15M PRN PO DECREASED GLUCOSE; Start 07/07/18 at 15 :00 Dextrose (D50w Syringe) 25 ml Q15M PRN IV DECREASED GLUCOSE; Start 07/07/18 at 15:00 Dextrose (D50w Syringe) 50 ml Q15M PRN IV DECREASED GLUCOSE; Start 07/07/18 at 15:00 Glucagon (Glucagen) 1 mg Q15M PRN IM DECREASED GLUCOSE; Start 07/07/18 at 15:00 Glucose (Glutose) 15 gm Q15M PRN BUCCAL DECREASED GLUCOSE; Start 07/07/18 at 15:00 Ascorbic Acid (Vitamin C) 1,000 mg DAILY PO Last administered on 07/12/18at 08:47; Admin Dose 1,000 MG; Start 07/08/18 at 09:00 Zinc Sulfate (Zinc Sulfate) 220 mg DAILY PO Last administered on 07/12/18at 08:47; Admin Dose 220 MG; Start 07/08/18 at 09:00 Mineral Oil (Eucerin Lotion) 1 applic BID TOP Last administered on 07/12/18at 13:09; Admin Dose 1 APPLIC; Start 07/07/18 at 21:00 IV Flush (NS 10 ml) 10 ml PRN PRN IV FLUSH LINE; Start 07/07/18 at 17:30 Sodium Hypochlorite (Dakins Diluted (/40)) 1 applic BID TP Last administered on 07/12/18at 13:08; Admin Dose 1 APPLIC; Start 07/07/18 at 23:00 Cefepime HCl 50 ml @ 100 mls/hr Q12 IVPB Last administered on 07/12/18at 08:45; Admin Dose 100 MLS/HR; Start 07/08/18 at 21:00 Tigecycline 50 mg/ Sodium Chloride 100 ml @ 200 mls/hr Q12H IVPB Last administered on 07/12/18at 05:59; Admin Dose 200 MLS/HR; Start 07/09/18 at 06:00 Aspirin (Aspirin) 81 mg DAILY PO Last administered on 07/12/18at 08:48; Admin Dose 81 MG; Start 07/09/18 at 12:00 Nifedipine (Procardia Xl) 30 mg DAILY PO Last administered on 07/12/18at 08:50; Admin Dose 30 MG; Start 07/11/18 at 09:00 Ferric Sodium Gluconate Complex 125 mg/Sodium Chloride 100 ml @ 100 mls/hr DAILY@1300 IVPB Last administered on 07/12/18at 13:02; Admin Dose 100 MLS/HR; Start 07/11/18 at 13:00; Stop 07/13/18 at 13:59 Alteplase, Recombinant (Cathflo (Activase)) 2 mg MAY REPEAT X1 PRN CATHETER IF CATHETER REMAINS OCCULUDED Last administered on 07/12/18at 06:56; Admin Dose 2 MG; Start 07/12/18 at 05:30 Citric Acid/ Sodium Citrate (Bicitra) 30 ml BID PO ; Start 07/12/18 at 21:00 SEBASTIAN BARRETO NP Jul 12, 2018 14:19
[2018-07-12 14:59] VITALS: BP 141/78; PULSE 76; RESP 19
--- NOTE | 2018-07-12 16:28 | PN ---
Date/Time of Note Date/Time of Note DATE: 07/12/18 TIME: 16:24 Assessment/Plan VTE Prophylaxis Risk score (from Ns)>0 risk: 4 SCD applied (from [facility]): Yes SCD contraindicated: low risk/ambulating Pharmacological prophylaxis: NA/contraindicated, LMWH Pharm contraindication: low risk/ambulating, surgical contra Lines/Catheters IV C[facility]ter Type (from [facility] PICC Line Central line still needed: Yes Urinary Cath still in place: No Assessment/Plan Hospital Course Assessment and plan 1. Chr osteomyelitis/gangrene of both feet. Continue antibiotics wound care. for debridement: ~lt foot TMA, rt foot digital debridement. -No chest pain dyspnea, may proceed forward to surgery/debridement as indicated with low perioperative risk. 2. Failure to thrive may need wound VAC SNF on discharge 3. Type 2 diabetes 4. Nonadherence refused surgery in the past 5. CKD with acute renal failure, stable improved 6. Anemia stable observe 7. History of stroke 8. Hypertension 9. Urinary retention neurogenic bladder?/Autonomic dysfunction? Subjective: Events noted no chest pain dyspnea fever. Objective: Vital signs stable Physical exam No pallor Regular Clear Benign Both feet c/d/i Result Diagram: 07/12/1851807/12/18518 Results 24hrs Laboratory Tests Test 07/11/18 17:55 07/11/18 20:59 07/12/18 05:19 07/12/18 08:44 Bedside Glucose 115 129 96 White Blood Count 10.4 Red Blood Count 3.81 L Hemoglobin 10.3 L Hematocrit 32.6 L Mean Corpuscular 85.6 Volume Mean Corpuscular 27.0 L Hemoglobin Mean Corpuscular 31.6 L Hemoglobin Concent Red Cell 14.0 Distribution Width Platelet Count 359 # Mean Platelet Volume 10.3 Immature 0.500 H Granulocytes % Neutrophils % 68.5 Lymphocytes % 16.5 Monocytes % 6.8 Eosinophils % 6.5 Basophils % 1.2 Nucleated Red Blood 0.0 Cells % Immature 0.050 H Granulocytes # Neutrophils # 7.1 Lymphocytes # 1.7 Monocytes # 0.7 Eosinophils # 0.7 H Basophils # 0.1 Nucleated Red Blood 0.0 Cells # Sodium Level 141 Potassium Level 4.1 Chloride Level 114 H Carbon Dioxide Level 17 L Anion Gap 10 Blood Urea Nitrogen 51 H Creatinine 1.19 H Est Glomerular 49 L Filtrat Rate mL/min Glucose Level 90 Calcium Level 9.5 Phosphorus Level 5.2 H Magnesium Level 2.1 Test 07/12/18 12:57 Bedside Glucose 104 Exam/Review of Systems Exam Vitals Vital Signs Date Temp Pulse Resp B/P (MAP) Pulse Ox O2 O2 Flow FiO2 Time Delivery Rate 07/12/18 98.2 76 19 141/78 99 14:59 (99) 07/11/18 Room Air 13:53 Intake and Output 07/11/18 07/11/18 07/12/18 1515:00 23:00 07:00 IntakeIntake Total 250 ml 1650 ml 200 ml OutputOutput Total 400 ml 1000 ml BalanceBalance -150 ml 650 ml 200 ml Results Results 24hrs Laboratory Tests Test 07/11/18 17:55 07/11/18 20:59 07/12/18 05:19 07/12/18 08:44 Bedside Glucose 115 129 96 White Blood Count 10.4 Red Blood Count 3.81 L Hemoglobin 10.3 L Hematocrit 32.6 L Mean Corpuscular 85.6 Volume Mean Corpuscular 27.0 L Hemoglobin Mean Corpuscular 31.6 L Hemoglobin Concent Red Cell 14.0 Distribution Width Platelet Count 359 # Mean Platelet Volume 10.3 Immature 0.500 H Granulocytes % Neutrophils % 68.5 Lymphocytes % 16.5 Monocytes % 6.8 Eosinophils % 6.5 Basophils % 1.2 Nucleated Red Blood 0.0 Cells % Immature 0.050 H Granulocytes # Neutrophils # 7.1 Lymphocytes # 1.7 Monocytes # 0.7 Eosinophils # 0.7 H Basophils # 0.1 Nucleated Red Blood 0.0 Cells # Sodium Level 141 Potassium Level 4.1 Chloride Level 114 H Carbon Dioxide Level 17 L Anion Gap 10 Blood Urea Nitrogen 51 H Creatinine 1.19 H Est Glomerular 49 L Filtrat Rate mL/min Glucose Level 90 Calcium Level 9.5 Phosphorus Level 5.2 H Magnesium Level 2.1 Test 07/12/18 12:57 Bedside Glucose 104 Medications Medication Current Medications Atorvastatin Calcium (Lipitor) 40 mg HS PO Last administered on 07/11/18at 21:07; Admin Dose 40 MG; Start 07/07/18 at 21:00 Bethanechol Chloride (Urecholine) 10 mg TID PO Last administered on 07/12/18at 12:58; Admin Dose 10 MG; Start 07/07/18 at 21:00 Carvedilol (Coreg) 12.5 mg BID PO Last administered on 07/12/18at 08:49; Admin Dose 12.5 MG; Start 07/07/18 at 21:00 IV Flush (NS 3 ml) 3 ml PER PROTOCOL IV ; Start 07/07/18 at 14:30 Ondansetron HCl (Zofran Inj) 4 mg Q6H PRN IV NAUSEA/VOMITING; Start 07/07/18 at 14:30 Acetaminophen (Tylenol Tab) 650 mg Q6H PRN PO .PAIN 1-3 OR TEMP Last administered on 07/11/18at 18:44; Admin Dose 650 MG; Start 07/07/18 at 14:30 Acetaminophen/ Hydrocodone Bitart ([place] (5/325)) 1 tab Q6H PRN PO .MOD PAIN 4- 6; Start 07/07/18 at 14:30 Docusate Sodium (Colace) 100 mg Q12H PRN PO .CONSTIPATION Last administered on 07/10/18at 09:02; Admin Dose 100 MG; Start 07/07/18 at 14:30 Diagnostic Test (Pha) (Accu-Chek) 1 ea 02 XX Last administered on 07/08/18at 02:05; Admin Dose 1 EA; Start 07/08/18 at 02:00 Insulin Glargine (Lantus) 9 units DAILY@2000 SC Last administered on 07/11/18at 21:20; Admin Dose 9 UNITS; Start 07/07/18 at 20:00 Insulin Aspart (Novolog Insulin Pen) NOVOLOG *MILD* ALGORITHM WITH MEALS BEDTIME SC Last administered on 07/10/18at 13:57; Admin Dose 1 UNIT; Start 07/07/18 at 17:55 Miscellaneous Information 1 ea NOTE XX ; Start 07/07/18 at 15:00 Glucose (Glutose) 15 gm Q15M PRN PO DECREASED GLUCOSE; Start 07/07/18 at 15:00 Glucose (Glutose) 22.5 gm Q15M PRN PO DECREASED GLUCOSE; Start 07/07/18 at 15:00 Dextrose (D50w Syringe) 25 ml Q15M PRN IV DECREASED GLUCOSE; Start 07/07/18 at 15:00 Dextrose (D50w Syringe) 50 ml Q15M PRN IV DECREASED GLUCOSE; Start 07/07/18 at 15:00 Glucagon (Glucagen) 1 mg Q15M PRN IM DECREASED GLUCOSE; Start 07/07/18 at 15:00 Glucose (Glutose) 15 gm Q15M PRN BUCCAL DECREASED GLUCOSE; Start 07/07/18 at 15:00 Ascorbic Acid (Vitamin C) 1,000 mg DAILY PO Last administered on 07/12/18 08:47; Admin Dose 1,000 MG; Start 07/08/18 at 09:00 Zinc Sulfate (Zinc Sulfate) 220 mg DAILY PO Last administered on 07/12/18 08:47; Admin Dose 220 MG; Start 07/08/18 at 09:00 Mineral Oil (Eucerin Lotion) 1 applic BID TOP Last administered on 07/12/18 13:09; Admin Dose 1 APPLIC; Start 07/07/18 at 21:00 IV Flush (NS 10 ml) 10 ml PRN PRN IV FLUSH LINE; Start 07/07/18 at 17:30 Sodium Hypochlorite (Dakins Diluted (40)) 1 applic BID TP Last administered on 07/12/18 13:08; Admin Dose 1 APPLIC; Start 07/07/18 at 23:00 Cefepime HCl 50 ml @ 100 mls/hr Q12 IVPB Last administered on 07/12/18 08:45; Admin Dose 100 MLS/HR; Start 07/08/18 at 21:00 Tigecycline 50 mg/ Sodium Chloride 100 ml @ 200 mls/hr Q12H IVPB Last administered on 07/12/18at 05:59; Admin Dose 200 MLS/HR; Start 07/09/18 at 06:00 Aspirin (Aspirin) 81 mg DAILY PO Last administered on 07/12/18at 08:48; Admin Dose 81 MG; Start 07/09/18 at 12:00 Nifedipine (Procardia Xl) 30 mg DAILY PO Last administered on 07/12/18 08:50; Admin Dose 30 MG; Start 07/11/18 at 09:00 Ferric Sodium Gluconate Complex 125 mg/Sodium Chloride 100 ml @ 100 mls/hr DAILY@1300 IVPB Last administered on 07/12/18 13:02; Admin Dose 100 MLS/HR; Start 07/11/18 at 13:00; Stop 07/13/18 at 13:59 Alteplase, Recombinant (Cathflo (Activase)) 2 mg MAY REPEAT X1 PRN CATHETER IF CATHETER REMAINS OCCULUDED Last administered on 07/12/18at 06:56; Admin Dose 2 MG; Start 07/12/18 at 05:30 Citric Acid/ Sodium Citrate (Bicitra) 30 ml BID PO ; Start 07/12/18 at 21:00 DANNY ARCHULETA MD Jul 12, 2018 16:28
[2018-07-12 20:23] VITALS: BP 148/73; PULSE 73; RESP 17
[2018-07-12] MEDS: ATORVASTATIN 40 MG TAB PO SCH (20:25)
[2018-07-12] MEDS: ACETAMINOPHEN 325 MG TAB PO PRN (20:25)
[2018-07-12] MEDS: CITRIC ACID/NA CITRATE 30 ML CUP PO SCH (20:26)
[2018-07-12] MEDS: INSULIN GLARGINE [LANTus] (100 UNITS/ML) SYG SC SCH (20:52)
[2018-07-13] MEDS: ACCU-CHEK XX SCH (02:00)
[2018-07-13 02:24] VITALS: BP 132/76; PULSE 66; RESP 18
[2018-07-13] MEDS: TIGECYCLINE 50 MG in SOD CHLORIDE 0.9% 100 ML IVPB SCH ×2 (06:38→18:30)
[2018-07-13 07:44] VITALS: BP 131/72; PULSE 76; RESP 19
[2018-07-13] MEDS: INSULIN ASPART [NOVOLOG] 3 ML PEN SC SCH ×4 (09:06→21:00)
[2018-07-13] MEDS: CITRIC ACID/NA CITRATE 30 ML CUP PO SCH ×2 (09:10→21:37)
[2018-07-13] MEDS: ASCORBIC ACID 500 MG TAB PO SCH (09:10)
[2018-07-13] MEDS: ZINC SULFATE 220 MG CAP PO SCH (09:10)
[2018-07-13] MEDS: BETHANECHOL 10 MG TAB PO SCH (09:10)
[2018-07-13] MEDS: ASPIRIN 81 MG TAB PO SCH (09:10)
[2018-07-13] MEDS: NIFEdipine (XL) 60 MG TAB PO SCH (09:12)
[2018-07-13] MEDS: DAKINS 0.0125%(1/40) 473 ML SOLUTION TP SCH ×2 (09:18→21:39)
[2018-07-13] MEDS: CEFEPIME 1GM/50 ML (PMX) 50 ML IVPB SCH ×2 (09:18→21:36)
--- NOTE | 2018-07-13 10:22 | PN ---
DATE: 07/13/2018 SUBJECTIVE: The patient is stable, no events overnight. OBJECTIVE: VITAL SIGNS: Blood pressure is 131/72, pulse 76, respirations 19, temperature 97.6. HEENT: Head is normocephalic. NECK: Supple. HEART: Regular rate. LUNGS: Show diminished breath sounds at the base. ABDOMEN: Soft, nontender to palpation. No rebound or guarding. EXTREMITIES: Negative for clubbing, cyanosis. Positive noted wounds on the lower extremity with angella ssing clean, dry, and intact. DERMATOLOGIC: No rashes. MUSCULOSKELETAL: No joint effusion. NEUROLOGIC: No change in exam. MEDICATIONS: Reviewed. LABORATORY DATA: Reviewed. ASSESSMENT AND PLAN: 1. Nonoliguric acute kidney injury on top of chronic kidney disease stage III. Etiology of acute ki dney injury is secondary to hemodynamics. Renal function appears to be improving. Continue current treatment plans, supportive care, renally dose all medicines. 2. Anemia. Monitor hemoglobin and hematocrit levels in levels. 3. Mineral bone disorder, monitor calcium and phosphorus levels. 4. Metabolic acidosis secondary to acute kidney injury and chronic kidney disease. Continue Bicitra . 5. Hypertension. Continue current blood pressure regimen. 6. Bilateral gangrenous foot ulcers with osteomyelitis. Continue to monitor. Follow up with podiat ry. 7. Neurogenic bladder. Continue to monitor. 8. Diabetes. Continue current insulin regimen. 9. History of cerebrovascular accident. Dictated By: PARI TRAN DO NR/NTS Conf#: [id number] DID#: [id number] CC: DANNY ARCHULETA MD; HAKAN HARMON DPM; TALI ROBLES MD;*EndCC*
[2018-07-13] MEDS: MINERAL OIL 240 ML LOT TOP SCH ×2 (11:28→21:38)
--- NOTE | 2018-07-13 11:44 | CONS ---
Assessment/Plan Assessment/Plan Hospital Course (Demo Recall) All noted, no acute events Antimicrobials: Tygacil, cefepime Microbiology: Wound culture grew multidrug-resistant Acinetobacter, enterococcus, E. coli Physical examination: Well-developed well-nourished middle-aged woman who is alert in no distress. Head atraumatic normocephalic sclera nonicteric. Neck is supple. Chest rise symmetrical, breath sounds clear. Heart: S1-S2. Abdomen soft bowel sounds present. Extremities with bilateral lower extremities dressing clean dry and intact Assessment: 1. Bilateral lower extremities gangrene/Osteomyelitis 2. Chronic kidney disease, history of hemodialysis 3. Diabetes 4. RUE PICC Plan: Remains stable, continue abx, f/u podiatry rec-s. Pt will need 6+ weeks IV abx if infected part of the bone not removed, plan for debridement Consultation Date/Type/Reason Admit Date/Time Jul 07, 2018 at 12:55 Initial Consult Date Type of Consult id Date/Time of Note DATE: 07/13/18 TIME: 11:41 Exam/Review of Systems Exam Vitals Vital Signs Date Temp Pulse Resp B/P (MAP) Pulse Ox O2 O2 Flow FiO2 Time Delivery Rate 07/13/18 97.7 76 19 131/72 98 07:44 (91) 07/12/18 Room Air 20:23 Intake and Output 07/12/18 07/12/18 07/13/18 1515:00 23:00 07:00 IntakeIntake Total 550 ml 470 ml OutputOutput Total 1000 ml BalanceBalance -450 ml 470 ml Results Result Diagram: 07/13/18 0438 07/13/18 0438 Results 24hrs Laboratory Tests Test 07/12/18 12:57 07/12/18 18:14 07/12/18 20:40 07/13/18 04:38 Bedside Glucose 104 138 161 White Blood Count 10.1 Red Blood Count 3.53 L Hemoglobin 9.6 L Hematocrit 30.3 L Mean Corpuscular 85.8 Volume Mean Corpuscular 27.2 L Hemoglobin Mean Corpuscular 31.7 L Hemoglobin Concent Red Cell 14.4 Distribution Width Platelet Count 340 Mean Platelet Volume 10.4 Immature 0.600 H Granulocytes % Neutrophils % 65.0 Lymphocytes % 16.8 Monocytes % 9.0 Eosinophils % 7.6 H Basophils % 1.0 Nucleated Red Blood 0.0 Cells % Immature 0.060 H Granulocytes # Neutrophils # 6.6 Lymphocytes # 1.7 Monocytes # 0.9 Eosinophils # 0.8 H Basophils # 0.1 Nucleated Red Blood 0.0 Cells # Prothrombin Time 14.3 Prothrombin Time 1.1 Ratio INR International 1.10 Normalized Ratio Activated 44.5 H Partial Thromboplast Time Sodium Level 142 Potassium Level 4.1 Chloride Level 115 H Carbon Dioxide Level 19 L Anion Gap 8 Blood Urea Nitrogen 46 H Creatinine 1.19 H Est Glomerular 49 L Filtrat Rate mL/min Glucose Level 89 Calcium Level 8.8 Total Bilirubin 0.2 Direct Bilirubin 0.00 Indirect Bilirubin 0.2 Aspartate Amino 20 Transf (AST/SGOT) Alanine 11 L Aminotransferase (AL T/SGPT) Alkaline Phosphatase 75 Total Protein 6.7 Albumin 2.9 L Globulin 3.80 H Albumin/Globulin 0.76 Ratio Serum HCG, NEGATIVE Qualitative Test 07/13/18 09:05 Bedside Glucose 95 Medications Medication Current Medications Atorvastatin Calcium (Lipitor) 40 mg HS PO Last administered on 07/12/18 20:25; Admin Dose 40 MG; Start 07/07/18 at 21:00 Bethanechol Chloride (Urecholine) 10 mg TID PO Last administered on 07/13/18 09:10; Admin Dose 10 MG; Start 07/07/18 at 21:00 Carvedilol (Coreg) 12.5 mg BID PO Last administered on 07/13/18 09:12; Admin Dose 12.5 MG; Start 07/07/18 at 21:00 IV Flush (NS 3 ml) 3 ml PER PROTOCOL IV ; Start 07/07/18 at 14:30 Ondansetron HCl (Zofran Inj) 4 mg Q6H PRN IV NAUSEA/VOMITING; Start 07/07/18 at 14:30 Acetaminophen (Tylenol Tab) 650 mg Q6H PRN PO .PAIN 1-3 OR TEMP Last administered on 07/12/18 20:25; Admin Dose 650 MG; Start 07/07/18 at 14:30 Acetaminophen/ Hydrocodone Bitart ([place] (5/325)) 1 tab Q6H PRN PO .MOD PAIN 4- 6; Start 07/07/18 at 14:30 Docusate Sodium (Colace) 100 mg Q12H PRN PO .CONSTIPATION Last administered on 07/10/18 09:02; Admin Dose 100 MG; Start 07/07/18 at 14:30 Diagnostic Test (Pha) (Accu-Chek) 1 ea 02 XX Last administered on 07/08/18at 02:05; Admin Dose 1 EA; Start 07/08/18 at 02:00 Insulin Glargine (Lantus) 9 units DAILY@2000 SC Last administered on 07/12/18 20:52; Admin Dose 9 UNITS; Start 07/07/18 at 20:00 Insulin Aspart (Novolog Insulin Pen) NOVOLOG *MILD* ALGORITHM WITH MEALS BEDTIME SC Last administered on 07/10/18at 13:57; Admin Dose 1 UNIT; Start 07/07/18 at 17:55 Miscellaneous Information 1 ea NOTE XX ; Start 07/07/18 at 15:00 Glucose (Glutose) 15 gm Q15M PRN PO DECREASED GLUCOSE; Start 07/07/18 at 15:00 Glucose (Glutose) 22.5 gm Q15M PRN PO DECREASED GLUCOSE; Start 07/07/18 at 15 :00 Dextrose (D50w Syringe) 25 ml Q15M PRN IV DECREASED GLUCOSE; Start 07/07/18 at 15:00 Dextrose (D50w Syringe) 50 ml Q15M PRN IV DECREASED GLUCOSE; Start 07/07/18 at 15:00 Glucagon (Glucagen) 1 mg Q15M PRN IM DECREASED GLUCOSE; Start 07/07/18 at 15:00 Glucose (Glutose) 15 gm Q15M PRN BUCCAL DECREASED GLUCOSE; Start 07/07/18 at 15:00 Ascorbic Acid (Vitamin C) 1,000 mg DAILY PO Last administered on 07/13/18at 09:10; Admin Dose 1,000 MG; Start 07/08/18 at 09:00 Zinc Sulfate (Zinc Sulfate) 220 mg DAILY PO Last administered on 07/13/18 09:10; Admin Dose 220 MG; Start 07/08/18 at 09:00 Mineral Oil (Eucerin Lotion) 1 applic BID TOP Last administered on 07/12/18at 20:27; Admin Dose 1 APPLIC; Start 07/07/18 at 21:00 IV Flush (NS 10 ml) 10 ml PRN PRN IV FLUSH LINE; Start 07/07/18 at 17:30 Sodium Hypochlorite (Dakins Diluted (1/40)) 1 applic BID TP Last administered on 07/13/18 09:18; Admin Dose 1 APPLIC; Start 07/07/18 at 23:00 Cefepime HCl 50 ml @ 100 mls/hr Q12 IVPB Last administered on 07/13/18 09:18; Admin Dose 100 MLS/HR; Start 07/08/18 at 21:00 Tigecycline 50 mg/ Sodium Chloride 100 ml @ 200 mls/hr Q12H IVPB Last administered on 07/13/18 06:38; Admin Dose 200 MLS/HR; Start 07/09/18 at 06:00 Aspirin (Aspirin) 81 mg DAILY PO Last administered on 07/13/18 09:10; Admin Dose 81 MG; Start 07/09/18 at 12:00 Nifedipine (Procardia Xl) 30 mg DAILY PO Last administered on 07/13/18 09:12; Admin Dose 30 MG; Start 07/11/18 at 09:00 Ferric Sodium Gluconate Complex 125 mg/Sodium Chloride 100 ml @ 100 mls/hr DAILY@1300 IVPB Last administered on 07/12/18 13:02; Admin Dose 100 MLS/HR; Start 07/11/18 at 13:00; Stop 07/13/18 at 13:59 Alteplase, Recombinant (Cathflo (Activase)) 2 mg MAY REPEAT X1 PRN CATHETER IF CATHETER REMAINS OCCULUDED Last administered on 07/12/18 06:56; Admin Dose 2 MG; Start 07/12/18 at 05:30 Citric Acid/ Sodium Citrate (Bicitra) 30 ml BID PO Last administered on 07/13/18 09:10; Admin Dose 30 ML; Start 07/12/18 at 21:00 SEBASTIAN BARRETO NP Jul 13, 2018 11:44
[2018-07-13] MEDS: SOD FERRIC GLUC COMPLX 125 MG in SOD CHLORIDE 0.9% 100 ML IVPB SCH (13:06)
[2018-07-13] MEDS: ACETAMINOPHEN 325 MG TAB PO PRN (15:36)
[2018-07-13] MEDS: COLLAGENASE 5 GM (UD JAR) TOP SCH ×2 (15:42→21:39)
[2018-07-13] MEDS: GENTAMICIN 0.1% 15 GM OINT TOP SCH ×2 (15:46→21:39)
--- NOTE | 2018-07-13 17:32 | PN ---
Date/Time of Note Date/Time of Note DATE: 07/13/18 TIME: 17:31 Assessment/Plan VTE Prophylaxis Risk score (from Ns)>0 risk: 2 SCD applied (from Ns): No SCD contraindicated: low risk/ambulating Pharmacological prophylaxis: LMWH Lines/Catheters IV Catheter Type (from Nrsg): PICC Line Central line still needed: Yes Urinary Cath still in place: No Assessment/Plan Hospital Course Assessment and plan 1. Chr osteomyelitis/gangrene of both feet. Cont antibiotics/ wound care. Debridement: ~lt foot TMA, rt foot digital debridement soon. -No chest pain dyspnea, may proceed forward to surgery/debridement as indicated with low perioperative risk. 2. Failure to thrive may need wound VAC SNF on discharge 3. Type 2 diabetes 4. Nonadherence refused surgery in the past 5. CKD with acute renal failure, stable improved 6. Anemia stable observe 7. History of stroke 8. Hypertension 9. Urinary retention neurogenic bladder?/Autonomic dysfunction? Subjective: 07/12 events noted no chest pain dyspnea fever. : No events Objective: Vital signs stable Physical exam No pallor Regular Clear Benign Both feet c/d/i Result Diagram: 07/13/18 0438 07/13/18 0438 Results 24hrs Laboratory Tests Test 07/12/18 18:14 07/12/18 20:40 07/13/18 04:38 07/13/18 09:05 Bedside Glucose 138 161 95 White Blood Count 10.1 Red Blood Count 3.53 L Hemoglobin 9.6 L Hematocrit 30.3 L Mean Corpuscular 85.8 Volume Mean Corpuscular 27.2 L Hemoglobin Mean Corpuscular 31.7 L Hemoglobin Concent Red Cell 14.4 Distribution Width Platelet Count 340 Mean Platelet Volume 10.4 Immature 0.600 H Granulocytes % Neutrophils % 65.0 Lymphocytes % 16.8 Monocytes % 9.0 Eosinophils % 7.6 H Basophils % 1.0 Nucleated Red Blood 0.0 Cells % Immature 0.060 H Granulocytes # Neutrophils # 6.6 Lymphocytes # 1.7 Monocytes # 0.9 Eosinophils # 0.8 H Basophils # 0.1 Nucleated Red Blood 0.0 Cells # Prothrombin Time 14.3 Prothrombin Time 1.1 Ratio INR International 1.10 Normalized Ratio Activated 44.5 H Partial Thromboplast Time Sodium Level 142 Potassium Level 4.1 Chloride Level 115 H Carbon Dioxide Level 19 L Anion Gap 8 Blood Urea Nitrogen 46 H Creatinine 1.19 H Est Glomerular 49 L Filtrat Rate mL/min Glucose Level 89 Calcium Level 8.8 Total Bilirubin 0.2 Direct Bilirubin 0.00 Indirect Bilirubin 0.2 Aspartate Amino 20 Transf (AST/SGOT) Alanine 11 L Aminotransferase (AL T/SGPT) Alkaline Phosphatase 75 Total Protein 6.7 Albumin 2.9 L Globulin 3.80 H Albumin/Globulin 0.76 Ratio Serum HCG, NEGATIVE Qualitative Test 07/13/18 13:08 Bedside Glucose 148 Exam/Review of Systems Exam Vitals Vital Signs Date Temp Pulse Resp B/P (MAP) Pulse Ox O2 O2 Flow FiO2 Time Delivery Rate 07/13/18 97.7 76 19 131/72 98 07:44 (91) 07/12/18 Room Air 20:23 Intake and Output 07/12/18 07/12/18 07/13/18 1515:00 23:00 07:00 IntakeIntake Total 550 ml 470 ml OutputOutput Total 1000 ml BalanceBalance -450 ml 470 ml Results Results 24hrs Laboratory Tests Test 07/12/18 18:14 07/12/18 20:40 07/13/18 04:38 07/13/18 09:05 Bedside Glucose 138 161 95 White Blood Count 10.1 Red Blood Count 3.53 L Hemoglobin 9.6 L Hematocrit 30.3 L Mean Corpuscular 85.8 Volume Mean Corpuscular 27.2 L Hemoglobin Mean Corpuscular 31.7 L Hemoglobin Concent Red Cell 14.4 Distribution Width Platelet Count 340 Mean Platelet Volume 10.4 Immature 0.600 H Granulocytes % Neutrophils % 65.0 Lymphocytes % 16.8 Monocytes % 9.0 Eosinophils % 7.6 H Basophils % 1.0 Nucleated Red Blood 0.0 Cells % Immature 0.060 H Granulocytes # Neutrophils # 6.6 Lymphocytes # 1.7 Monocytes # 0.9 Eosinophils # 0.8 H Basophils # 0.1 Nucleated Red Blood 0.0 Cells # Prothrombin Time 14.3 Prothrombin Time 1.1 Ratio INR International 1.10 Normalized Ratio Activated 44.5 H Partial Thromboplast Time Sodium Level 142 Potassium Level 4.1 Chloride Level 115 H Carbon Dioxide Level 19 L Anion Gap 8 Blood Urea Nitrogen 46 H Creatinine 1.19 H Est Glomerular 49 L Filtrat Rate mL/min Glucose Level 89 Calcium Level 8.8 Total Bilirubin 0.2 Direct Bilirubin 0.00 Indirect Bilirubin 0.2 Aspartate Amino 20 Transf (AST/SGOT) Alanine 11 L Aminotransferase (AL T/SGPT) Alkaline Phosphatase 75 Total Protein 6.7 Albumin 2.9 L Globulin 3.80 H Albumin/Globulin 0.76 Ratio Serum HCG, NEGATIVE Qualitative Test 07/13/18 13:08 Bedside Glucose 148 Medications Medication Current Medications Atorvastatin Calcium (Lipitor) 40 mg HS PO Last administered on 07/12/18 20:25; Admin Dose 40 MG; Start 07/07/18 at 21:00 Carvedilol (Coreg) 12.5 mg BID PO Last administered on 07/13/18 09:12; Admin Dose 12.5 MG; Start 07/07/18 at 21:00 IV Flush (NS 3 ml) 3 ml PER PROTOCOL IV ; Start 07/07/18 at 14:30 Ondansetron HCl (Zofran Inj) 4 mg Q6H PRN IV NAUSEA/VOMITING; Start 07/07/18 at 14:30 Acetaminophen (Tylenol Tab) 650 mg Q6H PRN PO .PAIN 1-3 OR TEMP Last administered on 07/13/18 15:36; Admin Dose 650 MG; Start 07/07/18 at 14:30 Acetaminophen/ Hydrocodone Bitart ([place] (5/325)) 1 tab Q6H PRN PO .MOD PAIN 4- 6; Start 07/07/18 at 14:30 Docusate Sodium (Colace) 100 mg Q12H PRN PO .CONSTIPATION Last administered on 07/10/18 09:02; Admin Dose 100 MG; Start 07/07/18 at 14:30 Diagnostic Test (Pha) (Accu-Chek) 1 ea 02 XX Last administered on 07/08/18at 02:05; Admin Dose 1 EA; Start 07/08/18 at 02:00 Insulin Glargine (Lantus) 9 units DAILY@2000 SC Last administered on 07/12/18 20:52; Admin Dose 9 UNITS; Start 07/07/18 at 20:00 Insulin Aspart (Novolog Insulin Pen) NOVOLOG *MILD* ALGORITHM WITH MEALS BEDTIME SC Last administered on 07/13/18 13:10; Admin Dose 1 UNIT; Start 07/07/18 at 17:55 Miscellaneous Information 1 ea NOTE XX ; Start 07/07/18 at 15:00 Glucose (Glutose) 15 gm Q15M PRN PO DECREASED GLUCOSE; Start 07/07/18 at 15:00 Glucose (Glutose) 22.5 gm Q15M PRN PO DECREASED GLUCOSE; Start 07/07/18 at 15:00 Dextrose (D50w Syringe) 25 ml Q15M PRN IV DECREASED GLUCOSE; Start 07/07/18 at 15:00 Dextrose (D50w Syringe) 50 ml Q15M PRN IV DECREASED GLUCOSE; Start 07/07/18 at 15:00 Glucagon (Glucagen) 1 mg Q15M PRN IM DECREASED GLUCOSE; Start 07/07/18 at 15:00 Glucose (Glutose) 15 gm Q15M PRN BUCCAL DECREASED GLUCOSE; Start 07/07/18 at 15:00 Ascorbic Acid (Vitamin C) 1,000 mg DAILY PO Last administered on 07/13/18 09:10; Admin Dose 1,000 MG; Start 07/08/18 at 09:00 Zinc Sulfate (Zinc Sulfate) 220 mg DAILY PO Last administered on 07/13/18 09:10; Admin Dose 220 MG; Start 07/08/18 at 09:00 Mineral Oil (Eucerin Lotion) 1 applic BID TOP Last administered on 07/12/18 20:27; Admin Dose 1 APPLIC; Start 07/07/18 at 21:00 IV Flush (NS 10 ml) 10 ml PRN PRN IV FLUSH LINE; Start 07/07/18 at 17:30 Sodium Hypochlorite (Dakins Diluted (1/40)) 1 applic BID TP Last administered on 07/13/18 09:18; Admin Dose 1 APPLIC; Start 07/07/18 at 23:00 Cefepime HCl 50 ml @ 100 mls/hr Q12 IVPB Last administered on 07/13/18 09:18; Admin Dose 100 MLS/HR; Start 07/08/18 at 21:00 Tigecycline 50 mg/ Sodium Chloride 100 ml @ 200 mls/hr Q12H IVPB Last administered on 07/13/18 06:38; Admin Dose 200 MLS/HR; Start 07/09/18 at 06:00 Aspirin (Aspirin) 81 mg DAILY PO Last administered on 07/13/18 09:10; Admin Dose 81 MG; Start 07/09/18 at 12:00 Nifedipine (Procardia Xl) 30 mg DAILY PO Last administered on 07/13/18 09:12; Admin Dose 30 MG; Start 07/11/18 at 09:00 Alteplase, Recombinant (Cathflo (Activase)) 2 mg MAY REPEAT X1 PRN CATHETER IF CATHETER REMAINS OCCULUDED Last administered on 07/12/18 06:56; Admin Dose 2 MG; Start 07/12/18 at 05:30 Citric Acid/ Sodium Citrate (Bicitra) 30 ml BID PO Last administered on 07/13/18 09:10; Admin Dose 30 ML; Start 07/12/18 at 21:00 Collagenase (Santyl) 1 applic BID TOP Last administered on 07/13/18 15:42; Admin Dose 1 APPLIC; Start 07/13/18 at 15:30 Gentamicin Sulfate (Gentamicin 0.1% Oint) 1 applic BID TOP Last administered on 07/13/18 15:46; Admin Dose 1 APPLIC; Start 07/13/18 at 15:30 DANNY ARCHULETA MD Jul 13, 2018 17:32
[2018-07-13 18:06] VITALS: BP 176/96; PULSE 75
[2018-07-13] MEDS ORDERED: hydrALAzine 20 MG INJ IV ONE (18:30)
[2018-07-13 20:04] VITALS: BP 153/74; PULSE 76; RESP 18
[2018-07-13] MEDS: INSULIN GLARGINE [LANTus] (100 UNITS/ML) SYG SC SCH (21:32)
[2018-07-13] MEDS: ATORVASTATIN 40 MG TAB PO SCH (21:38)
[2018-07-14] VITALS (9 sets, daily range): BP systolic 90–132; BP diastolic 53–72; PULSE 70–83; RESP 17–20
[2018-07-14] MEDS: ACCU-CHEK XX SCH (02:00)
[2018-07-14] MEDS: TIGECYCLINE 50 MG in SOD CHLORIDE 0.9% 100 ML IVPB SCH ×2 (05:37→17:33)
[2018-07-14] MEDS: INSULIN ASPART [NOVOLOG] 3 ML PEN SC SCH ×4 (07:50→21:00)
[2018-07-14] MEDS: CEFEPIME 1GM/50 ML (PMX) 50 ML IVPB SCH ×2 (09:19→22:28)
[2018-07-14] MEDS: ASCORBIC ACID 250 MG TAB PO SCH (09:21)
[2018-07-14] MEDS: ZINC SULFATE 220 MG CAP PO SCH (09:21)
[2018-07-14] MEDS: ASPIRIN 81 MG TAB PO SCH (09:21)
[2018-07-14] MEDS: NIFEdipine (XL) 60 MG TAB PO SCH (09:21)
[2018-07-14] MEDS: COLLAGENASE 5 GM (UD JAR) TOP SCH ×2 (09:22→22:28)
[2018-07-14] MEDS: DAKINS 0.0125%(1/40) 473 ML SOLUTION TP SCH ×2 (09:22→22:34)
[2018-07-14] MEDS: CITRIC ACID/NA CITRATE 30 ML CUP PO SCH ×2 (09:22→22:27)
[2018-07-14] MEDS: GENTAMICIN 0.1% 15 GM OINT TOP SCH ×2 (09:22→22:32)
[2018-07-14] MEDS: MINERAL OIL 240 ML LOT TOP SCH ×2 (09:23→22:35)
--- NOTE | 2018-07-14 09:52 | PN ---
DATE: 07/14/2018 SUBJECTIVE: The patient is stable. No events overnight. OBJECTIVE: VITAL SIGNS: Blood pressure is 125/69, pulse 75, respirations 18, temperature 98.0. HEENT: Head is normocephalic. NECK: Supple. HEART: Regular rate. LUNGS: Show diminished breath sounds at the base. ABDOMEN: Soft, nontender to palpation without rebound or guarding. EXTREMITIES: Negative for clubbing, cyanosis. No edema. Positive necrotic toes noted in left lower extremity. DERMATOLOGIC: No rashes. MUSCULOSKELETAL: No joint effusion. NEUROLOGIC: No change in exam. MEDICATIONS: Reviewed. LABORATORY DATA: Reviewed. ASSESSMENT AND PLAN: 1. Nonoliguric acute kidney injury on top of chronic kidney disease stage III. Etiology of acute ki dney injury is secondary to hemodynamics. Renal function has been fluctuating, but stabilizing aroun d a creatinine of 1.3 to 1.5 mg/dL. We will continue current treatment plan, supportive care, renall y dose all medicines. 2. Anemia. Monitor hemoglobin and hematocrit levels. 3. Mineral bone disorder, monitor calcium and phosphorus levels. 4. Metabolic acidosis secondary to acute kidney injury and chronic kidney disease. Continue Bicitra . 5. Hypertension. Continue current blood pressure regimen. 6. Gangrenous foot ulcers, osteomyelitis. Continue to monitor. Follow up with podiatry. 7. Neurogenic bladder. Continue to monitor. 8. Diabetes. Continue current insulin regimen. 9. History of cerebrovascular accident. Dictated By: PARI TRAN DO NR/NTS Conf#: [id number] DID#: [id number] CC: HAKAN HARMON DPM; TALI ROBLES MD; DANNY ARCHULETA MD;*EndCC*
--- NOTE | 2018-07-14 15:28 | CONS ---
Assessment/Plan Assessment/Plan Hospital Course (Demo Recall) Alert, feels good Antimicrobials: Tygacil, cefepime Microbiology: Wound culture grew multidrug-resistant Acinetobacter, enterococcus, E. coli Physical examination: Well-developed well-nourished middle-aged woman who is alert in no distress. Head atraumatic normocephalic sclera nonicteric. Neck is supple. Chest rise symmetrical, breath sounds clear. Heart: S1-S2. Abdomen soft bowel sounds present. Extremities with bilateral lower extremities dressing clean dry and intact Assessment: 1. Bilateral lower extremities gangrene/Osteomyelitis 2. Chronic kidney disease, history of hemodialysis 3. Diabetes 4. RUE PICC Plan: Remains stable, continue abx, f/u podiatry rec-s. Pt will need 6+ weeks IV abx if infected part of the bone not removed ? debridement Consultation Date/Type/Reason Admit Date/Time Jul 07, 2018 at 12:55 Initial Consult Date Type of Consult id Date/Time of Note DATE: 07/14/18 TIME: 15:27 Exam/Review of Systems Exam Vitals Vital Signs Date Temp Pulse Resp B/P (MAP) Pulse Ox O2 O2 Flow FiO2 Time Delivery Rate 07/14/18 98.0 75 18 125/69 99 08:00 (87) 07/14/18 Room Air 03:33 Intake and Output 07/13/18 07/13/18 07/14/18 1515:00 23:00 07:00 IntakeIntake Total 590 ml 150 ml 600 ml OutputOutput Total 600 ml 550 ml BalanceBalance -10 ml -400 ml 600 ml Results Result Diagram: 07/14/18 0436 07/14/18 0436 Results 24hrs Laboratory Tests Test 07/13/18 18:37 07/13/18 21:26 07/14/18 04:36 07/14/18 08:30 Bedside Glucose 123 152 133 White Blood Count 10.7 Red Blood Count 3.55 L Hemoglobin 9.8 L Hematocrit 30.2 L Mean Corpuscular 85.1 Volume Mean Corpuscular 27.6 L Hemoglobin Mean Corpuscular 32.5 Hemoglobin Concent Red Cell 14.2 Distribution Width Platelet Count 337 Mean Platelet Volume 10.8 H Immature 0.600 H Granulocytes % Neutrophils % 71.7 Lymphocytes % 12.3 L Monocytes % 7.6 Eosinophils % 6.7 Basophils % 1.1 Nucleated Red Blood 0.0 Cells % Immature 0.060 H Granulocytes # Neutrophils # 7.7 H Lymphocytes # 1.3 Monocytes # 0.8 Eosinophils # 0.7 H Basophils # 0.1 Nucleated Red Blood 0.0 Cells # Sodium Level 141 Potassium Level 4.2 Chloride Level 113 H Carbon Dioxide Level 19 L Anion Gap 9 Blood Urea Nitrogen 50 H Creatinine 1.39 H Est Glomerular 41 L Filtrat Rate mL/min Glucose Level 205 # Calcium Level 8.6 Test 07/14/18 12:51 Bedside Glucose 157 Medications Medication Current Medications Atorvastatin Calcium (Lipitor) 40 mg HS PO Last administered on 07/13/18 21:38; Admin Dose 40 MG; Start 07/07/18 at 21:00 IV Flush (NS 3 ml) 3 ml PER PROTOCOL IV ; Start 07/07/18 at 14:30 Ondansetron HCl (Zofran Inj) 4 mg Q6H PRN IV NAUSEA/VOMITING; Start 07/07/18 at 14:30 Acetaminophen (Tylenol Tab) 650 mg Q6H PRN PO .PAIN 1-3 OR TEMP Last administered on 07/13/18at 15:36; Admin Dose 650 MG; Start 07/07/18 at 14:30 Acetaminophen/ Hydrocodone Bitart ([place] (5/325)) 1 tab Q6H PRN PO .MOD PAIN 4- 6; Start 07/07/18 at 14:30 Docusate Sodium (Colace) 100 mg Q12H PRN PO .CONSTIPATION Last administered on 07/10/18 09:02; Admin Dose 100 MG; Start 07/07/18 at 14:30 Diagnostic Test (Pha) (Accu-Chek) 1 ea 02 XX Last administered on 07/08/18at 02:05; Admin Dose 1 EA; Start 07/08/18 at 02:00 Insulin Glargine (Lantus) 9 units DAILY@2000 SC Last administered on 07/13/18 21:32; Admin Dose 9 UNITS; Start 07/07/18 at 20:00 Insulin Aspart (Novolog Insulin Pen) NOVOLOG *MILD* ALGORITHM WITH MEALS BEDTIME SC Last administered on 07/14/18 12:53; Admin Dose 1 UNIT; Start 07/07/18 at 17:55 Miscellaneous Information 1 ea NOTE XX ; Start 07/07/18 at 15:00 Glucose (Glutose) 15 gm Q15M PRN PO DECREASED GLUCOSE; Start 07/07/18 at 15:00 Glucose (Glutose) 22.5 gm Q15M PRN PO DECREASED GLUCOSE; Start 07/07/18 at 15:00 Dextrose (D50w Syringe) 25 ml Q15M PRN IV DECREASED GLUCOSE; Start 07/07/18 at 15:00 Dextrose (D50w Syringe) 50 ml Q15M PRN IV DECREASED GLUCOSE; Start 07/07/18 at 15:00 Glucagon (Glucagen) 1 mg Q15M PRN IM DECREASED GLUCOSE; Start 07/07/18 at 15:00 Glucose (Glutose) 15 gm Q15M PRN BUCCAL DECREASED GLUCOSE; Start 07/07/18 at 15:00 Zinc Sulfate (Zinc Sulfate) 220 mg DAILY PO Last administered on 07/14/18 09:21; Admin Dose 220 MG; Start 07/08/18 at 09:00 Mineral Oil (Eucerin Lotion) 1 applic BID TOP Last administered on 07/14/18 09:23; Admin Dose 1 APPLIC; Start 07/07/18 at 21:00 IV Flush (NS 10 ml) 10 ml PRN PRN IV FLUSH LINE; Start 07/07/18 at 17:30 Sodium Hypochlorite (Dakins Diluted (40)) 1 applic BID TP Last administered on 07/14/18 09:22; Admin Dose 1 APPLIC; Start 07/07/18 at 23:00 Cefepime HCl 50 ml @ 100 mls/hr Q12 IVPB Last administered on 07/14/18 09:19; Admin Dose 100 MLS/HR; Start 07/08/18 at 21:00 Tigecycline 50 mg/ Sodium Chloride 100 ml @ 200 mls/hr Q12H IVPB Last administered on 07/14/18at 05:37; Admin Dose 200 MLS/HR; Start 07/09/18 at 06:00 Aspirin (Aspirin) 81 mg DAILY PO Last administered on 07/14/18 09:21; Admin Dose 81 MG; Start 07/09/18 at 12:00 Alteplase, Recombinant (Cathflo (Activase)) 2 mg MAY REPEAT X1 PRN CATHETER IF CATHETER REMAINS OCCULUDED Last administered on 07/12/18at 06:56; Admin Dose 2 MG; Start 07/12/18 at 05:30 Citric Acid/ Sodium Citrate (Bicitra) 30 ml BID PO Last administered on 07/14/18 09:22; Admin Dose 30 ML; Start 07/12/18 at 21:00 Collagenase (Santyl) 1 applic BID TOP Last administered on 07/14/18 09:22; Admin Dose 1 APPLIC; Start 07/13/18 at 15:30 Gentamicin Sulfate (Gentamicin 0.1% Oint) 1 applic BID TOP Last administered on 07/14/18 09:22; Admin Dose 1 APPLIC; Start 07/13/18 at 15:30 Ascorbic Acid (Vitamin C) 250 mg DAILY PO Last administered on 07/14/18 09:21; Admin Dose 250 MG; Start 07/14/18 at 09:00 Carvedilol (Coreg) 25 mg BID PO Last administered on 07/14/18 09:21; Admin Dose 25 MG; Start 07/14/18 at 09:00 Nifedipine (Procardia Xl) 60 mg DAILY PO Last administered on 07/14/18 09:21; Admin Dose 60 MG; Start 07/14/18 at 09:00 SEBASTIAN BARRETO NP Jul 14, 2018 15:28
--- NOTE | 2018-07-14 15:44 | PN ---
Date/Time of Note Date/Time of Note DATE: 07/14/18 TIME: 15:42 Assessment/Plan VTE Prophylaxis Risk score (from Ns)>0 risk: 5 SCD applied (from Ns): Yes SCD contraindicated: low risk/ambulating Pharmacological prophylaxis: LMWH Pharm contraindication: low risk/ambulating Lines/Catheters IV Catheter Type (from Nrs): PICC Line Central line still needed: Yes Urinary Cath still in place: No Reason Cath still needed: urinary retention Assessment/Plan Hospital Course Assessment and plan 1. Chr osteomyelitis/gangrene of both feet. Cont antibiotics/ wound care. Debridement: ~lt foot TMA, rt foot digital debridement ~may be next week. -No chest pain dyspnea, may proceed forward to surgery/debridement as indicated with low perioperative risk. No planned surgery this week. DC to SNF 2. Failure to thrive; may need wound VAC/ SNF if feasible. Appreciate case management assistance. And then can visit podiatry next week. 3. Type 2 diabetes 4. Nonadherence refused surgery in the past 5. CKD with acute renal failure, stable improved 6. Anemia stable observe 7. History of stroke 8. Hypertension 9. Urinary retention neurogenic bladder?/Autonomic dysfunction? 10. Adjustment disorder cute stress disorder, appreciate behavioral health assistance Subjective: 07/12 events noted no chest pain dyspnea fever. : No events 07/14: No events. Not much pain. Tearful but prepared for surgery and possible limb loss. Objective: Vital signs stable Physical exam No pallor Regular Clear Benign Both feet c/d/i Result Diagram: 07/14/18 0436 07/14/18 0436 Results 24hrs Laboratory Tests Test 07/13/18 18:37 07/13/18 21:26 07/14/18 04:36 07/14/18 08:30 Bedside Glucose 123 152 133 White Blood Count 10.7 Red Blood Count 3.55 L Hemoglobin 9.8 L Hematocrit 30.2 L Mean Corpuscular 85.1 Volume Mean Corpuscular 27.6 L Hemoglobin Mean Corpuscular 32.5 Hemoglobin Concent Red Cell 14.2 Distribution Width Platelet Count 337 Mean Platelet Volume 10.8 H Immature 0.600 H Granulocytes % Neutrophils % 71.7 Lymphocytes % 12.3 L Monocytes % 7.6 Eosinophils % 6.7 Basophils % 1.1 Nucleated Red Blood 0.0 Cells % Immature 0.060 H Granulocytes # Neutrophils # 7.7 H Lymphocytes # 1.3 Monocytes # 0.8 Eosinophils # 0.7 H Basophils # 0.1 Nucleated Red Blood 0.0 Cells # Sodium Level 141 Potassium Level 4.2 Chloride Level 113 H Carbon Dioxide Level 19 L Anion Gap 9 Blood Urea Nitrogen 50 H Creatinine 1.39 H Est Glomerular 41 L Filtrat Rate mL/min Glucose Level 205 # Calcium Level 8.6 Test 07/14/18 12:51 Bedside Glucose 157 Exam/Review of Systems Exam Vitals Vital Signs Date Temp Pulse Resp B/P (MAP) Pulse Ox O2 O2 Flow FiO2 Time Delivery Rate 07/14/18 98.0 75 18 125/69 99 08:00 (87) 07/14/18 Room Air 03:33 Intake and Output 07/13/18 07/13/18 07/14/18 1515:00 23:00 07:00 IntakeIntake Total 590 ml 150 ml 600 ml OutputOutput Total 600 ml 550 ml BalanceBalance -10 ml -400 ml 600 ml Results Results 24hrs Laboratory Tests Test 07/13/18 18:37 07/13/18 21:26 07/14/18 04:36 07/14/18 08:30 Bedside Glucose 123 152 133 White Blood Count 10.7 Red Blood Count 3.55 L Hemoglobin 9.8 L Hematocrit 30.2 L Mean Corpuscular 85.1 Volume Mean Corpuscular 27.6 L Hemoglobin Mean Corpuscular 32.5 Hemoglobin Concent Red Cell 14.2 Distribution Width Platelet Count 337 Mean Platelet Volume 10.8 H Immature 0.600 H Granulocytes % Neutrophils % 71.7 Lymphocytes % 12.3 L Monocytes % 7.6 Eosinophils % 6.7 Basophils % 1.1 Nucleated Red Blood 0.0 Cells % Immature 0.060 H Granulocytes # Neutrophils # 7.7 H Lymphocytes # 1.3 Monocytes # 0.8 Eosinophils # 0.7 H Basophils # 0.1 Nucleated Red Blood 0.0 Cells # Sodium Level 141 Potassium Level 4.2 Chloride Level 113 H Carbon Dioxide Level 19 L Anion Gap 9 Blood Urea Nitrogen 50 H Creatinine 1.39 H Est Glomerular 41 L Filtrat Rate mL/min Glucose Level 205 # Calcium Level 8.6 Test 07/14/18 12:51 Bedside Glucose 157 Medications Medication Current Medications Atorvastatin Calcium (Lipitor) 40 mg HS PO Last administered on 07/13/18at 21:38; Admin Dose 40 MG; Start 07/07/18 at 21:00 IV Flush (NS 3 ml) 3 ml PER PROTOCOL IV ; Start 07/07/18 at 14:30 Ondansetron HCl (Zofran Inj) 4 mg Q6H PRN IV NAUSEA/VOMITING; Start 07/07/18 at 14:30 Acetaminophen (Tylenol Tab) 650 mg Q6H PRN PO .PAIN 1-3 OR TEMP Last administered on 07/13/18at 15:36; Admin Dose 650 MG; Start 07/07/18 at 14:30 Acetaminophen/ Hydrocodone Bitart ([place] (5/325)) 1 tab Q6H PRN PO .MOD PAIN 4- 6; Start 07/07/18 at 14:30 Docusate Sodium (Colace) 100 mg Q12H PRN PO .CONSTIPATION Last administered on 07/10/18 09:02; Admin Dose 100 MG; Start 07/07/18 at 14:30 Diagnostic Test (Pha) (Accu-Chek) 1 ea 02 XX Last administered on 07/08/18at 02:05; Admin Dose 1 EA; Start 07/08/18 at 02:00 Insulin Glargine (Lantus) 9 units DAILY@2000 SC Last administered on 07/13/18 21:32; Admin Dose 9 UNITS; Start 07/07/18 at 20:00 Insulin Aspart (Novolog Insulin Pen) NOVOLOG *MILD* ALGORITHM WITH MEALS BEDTIME SC Last administered on 07/14/18at 12:53; Admin Dose 1 UNIT; Start 07/07/18 at 17:55 Miscellaneous Information 1 ea NOTE XX ; Start 07/07/18 at 15:00 Glucose (Glutose) 15 gm Q15M PRN PO DECREASED GLUCOSE; Start 07/07/18 at 15:00 Glucose (Glutose) 22.5 gm Q15M PRN PO DECREASED GLUCOSE; Start 07/07/18 at 15:00 Dextrose (D50w Syringe) 25 ml Q15M PRN IV DECREASED GLUCOSE; Start 07/07/18 at 15:00 Dextrose (D50w Syringe) 50 ml Q15M PRN IV DECREASED GLUCOSE; Start 07/07/18 at 15:00 Glucagon (Glucagen) 1 mg Q15M PRN IM DECREASED GLUCOSE; Start 07/07/18 at 15:00 Glucose (Glutose) 15 gm Q15M PRN BUCCAL DECREASED GLUCOSE; Start 07/07/18 at 15:00 Zinc Sulfate (Zinc Sulfate) 220 mg DAILY PO Last administered on 07/14/18 09:21; Admin Dose 220 MG; Start 07/08/18 at 09:00 Mineral Oil (Eucerin Lotion) 1 applic BID TOP Last administered on 07/14/18 09:23; Admin Dose 1 APPLIC; Start 07/07/18 at 21:00 IV Flush (NS 10 ml) 10 ml PRN PRN IV FLUSH LINE; Start 07/07/18 at 17:30 Sodium Hypochlorite (Dakins Diluted ()) 1 applic BID TP Last administered on 07/14/18 09:22; Admin Dose 1 APPLIC; Start 07/07/18 at 23:00 Cefepime HCl 50 ml @ 100 mls/hr Q12 IVPB Last administered on 07/14/18 09:19; Admin Dose 100 MLS/HR; Start 07/08/18 at 21:00 Tigecycline 50 mg/ Sodium Chloride 100 ml @ 200 mls/hr Q12H IVPB Last administered on 07/14/18 05:37; Admin Dose 200 MLS/HR; Start 07/09/18 at 06:00 Aspirin (Aspirin) 81 mg DAILY PO Last administered on 07/14/18 09:21; Admin Dose 81 MG; Start 07/09/18 at 12:00 Alteplase, Recombinant (Cathflo (Activase)) 2 mg MAY REPEAT X1 PRN CATHETER IF CATHETER REMAINS OCCULUDED Last administered on 07/12/18at 06:56; Admin Dose 2 MG; Start 07/12/18 at 05:30 Citric Acid/ Sodium Citrate (Bicitra) 30 ml BID PO Last administered on 07/14/18 09:22; Admin Dose 30 ML; Start 07/12/18 at 21:00 Collagenase (Santyl) 1 applic BID TOP Last administered on 07/14/18 09:22; Admin Dose 1 APPLIC; Start 07/13/18 at 15:30 Gentamicin Sulfate (Gentamicin 0.1% Oint) 1 applic BID TOP Last administered on 07/14/18 09:22; Admin Dose 1 APPLIC; Start 07/13/18 at 15:30 Ascorbic Acid (Vitamin C) 250 mg DAILY PO Last administered on 07/14/18at 09:21; Admin Dose 250 MG; Start 07/14/18 at 09:00 Carvedilol (Coreg) 25 mg BID PO Last administered on 07/14/18at 09:21; Admin Dose 25 MG; Start 07/14/18 at 09:00 Nifedipine (Procardia Xl) 60 mg DAILY PO Last administered on 07/14/18at 09:21; Admin Dose 60 MG; Start 07/14/18 at 09:00 DANNY ARCHULETA MD Jul 14, 2018 15:44
--- NOTE | 2018-07-14 17:28 | PSY ---
Date/Time of Note Date/Time of Note DATE: 07/14/18 TIME: 17:16 Psychiatric Subjective Eval Consent Pt consented to telemedicine: No Subjective Evaluation Patient location: inpatient History of present illness Patient is a 48-year-old female with diabetes and bilateral foot gangrene. On a face to face evaluation, patient denies history of depression, states there is n ot wrong with crying or grieving for a loved one, for as long as it takes. Patient states she is very emotional and has memories of good times with her mom, which brought tears to her eyes. She denies suicidal ideation, denies hopelessness and contracted for safety. Patient declined the use of antidepressants, states she is fine. Past psychiatric history Denies Hospitalization: other Medical history Problems Medical Problems: (1) Acute kidney injury (nontraumatic) Status: Chronic (2) Acute renal failure Status: Acute (3) Acute UTI Status: Acute (4) Anemia due to chronic kidney disease Status: Chronic (5) Chronic kidney disease, stage III (moderate) Status: Chronic (6) Diabetes mellitus type 2 in nonobese Status: Chronic (7) Essential hypertension Status: Chronic (8) Foot osteomyelitis, left Status: Chronic (9) Foot osteomyelitis, right Status: Chronic (10) Hypoxia Status: Acute (11) Lactic acidosis Status: Acute (12) Metabolic acidosis Status: Acute (13) Neurogenic bladder Status: Chronic (14) SIRS (systemic inflammatory response syndrome) Status: Acute (15) Ureteral stone Status: Acute (16) UTI (urinary tract infection) due to Enterococcus Status: Acute Allergies: Coded Allergies: No Known Allergy (Unverified , 04/10/18) Substance Abuse Substance use: other Substance abuse history: No Prior substance abuse treatmen: No Social History Marital status: DPA/Conservatorship: No Psychiatric Objective Eval Review of Systems: Review of Systems: Not Applicable Physical Examination: Sleep: Adequate Appetite: Adequate Energy: Adequate Interest: Adequate Mental Status Examination: Appearance: Groomed Eye Contact: Good Psychomotor Activity: Normal Behavior: Cooperative Speech: Clear AFFECT: Appropriate Mood: Appropriate/Full Though Process: Linear Thought Content: Normal Suicidal: No Homicidal: No On 72 hour hold: No Cognition: Alert Insight: Intact Judgement: Intact Attention Span: Intact Laboratory Results Laboratory Tests Test 07/12/18 18:14 07/12/18 20:40 07/13/18 04:38 07/13/18 09:05 Bedside Glucose 138 mg/dL 161 mg/dL 95 mg/dL White Blood Count 10.1 10^3/ul Red Blood Count 3.53 10^6/ul Hemoglobin 9.6 g/dl Hematocrit 30.3 % Mean Corpuscular 85.8 fl Volume Mean Corpuscular 27.2 pg Hemoglobin Mean Corpuscular 31.7 g/dl Hemoglobin Concent Red Cell 14.4 % Distribution Width Platelet Count 340 10^3/UL Mean Platelet 10.4 fl Volume Immature 0.600 % Granulocytes % Neutrophils % 65.0 % Lymphocytes % 16.8 % Monocytes % 9.0 % Eosinophils % 7.6 % Basophils % 1.0 % Nucleated Red 0.0 /100WBC Blood Cells % Immature 0.060 10^3/ul Granulocytes # Neutrophils # 6.6 10^3/ul Lymphocytes # 1.7 10^3/ul Monocytes # 0.9 10^3/ul Eosinophils # 0.8 10^3/ul Basophils # 0.1 10^3/ul Nucleated Red 0.0 10^3/ul Blood Cells # Prothrombin Time 14.3 Sec Prothrombin Time 1.1 Ratio INR International 1.10 Normalized Ratio Activated 44.[address] Time Sodium Level 142 mmol/L Potassium Level 4.1 mmol/L Chloride Level 115 mmol/L Carbon Dioxide 19 mmol/L Level Anion Gap 8 Blood Urea 46 mg/dl Nitrogen Creatinine 1.19 mg/dl Est Glomerular 49 mL/min Filtrat Rate mL/min Glucose Level 89 mg/dl Calcium Level 8.8 mg/dl Total Bilirubin 0.2 mg/dl Direct Bilirubin 0.00 mg/dl Indirect Bilirubin 0.2 mg/dl Aspartate Amino 20 IU/L Transf (AST/SGOT) Alanine 11 IU/L Aminotransferase ( ALT/SGPT) Alkaline 75 IU/L Phosphatase Total Protein 6.7 g/dl Albumin 2.9 g/dl Globulin 3.80 g/dl Albumin/Globulin 0.76 Ratio Serum HCG, NEGATIVE Qualitative Test 07/13/18 13:08 07/13/18 18:37 07/13/18 21:26 07/14/18 04:36 Bedside Glucose 148 mg/dL 123 mg/dL 152 mg/dL White Blood Count 10.7 10^3/ul Red Blood Count 3.55 10^6/ul Hemoglobin 9.8 g/dl Hematocrit 30.2 % Mean Corpuscular 85.1 fl Volume Mean Corpuscular 27.6 pg Hemoglobin Mean Corpuscular 32.5 g/dl Hemoglobin Concent Red Cell 14.2 % Distribution Width Platelet Count 337 10^3/UL Mean Platelet 10.8 fl Volume Immature 0.600 % Granulocytes % Neutrophils % 71.7 % Lymphocytes % 12.3 % Monocytes % 7.6 % Eosinophils % 6.7 % Basophils % 1.1 % Nucleated Red 0.0 /100WBC Blood Cells % Immature 0.060 10^3/ul Granulocytes # Neutrophils # 7.7 10^3/ul Lymphocytes # 1.3 10^3/ul Monocytes # 0.8 10^3/ul Eosinophils # 0.7 10^3/ul Basophils # 0.1 10^3/ul Nucleated Red 0.0 10^3/ul Blood Cells # Sodium Level 141 mmol/L Potassium Level 4.2 mmol/L Chloride Level 113 mmol/L Carbon Dioxide 19 mmol/L Level Anion Gap 9 Blood Urea 50 mg/dl Nitrogen Creatinine 1.39 mg/dl Est Glomerular 41 mL/min Filtrat Rate mL/min Glucose Level 205 mg/dl Calcium Level 8.6 mg/dl Test 07/14/18 08:30 07/14/18 12:51 Bedside Glucose 133 mg/dL 157 mg/dL Assessment and Plan Assessment/Diagnosis Diagnosis Depressive Disorder Recommendation/Plan Medication Management Declined Multiple antipsychotics: No Psychotherapy Provide supportive therapy Discharge Disposition: Other Legal Status: Voluntary (No criteria for 5150 hold) EVAN HUGGINS NP Jul 14, 2018 17:27
[2018-07-14] MEDS: INSULIN GLARGINE [LANTus] (100 UNITS/ML) SYG SC SCH (22:24)
[2018-07-14] MEDS: ATORVASTATIN 40 MG TAB PO SCH (22:25)
[2018-07-15] MEDS: ACCU-CHEK XX SCH (02:00)
[2018-07-15] MEDS ORDERED: MAGNESIUM HYDROXIDE 30ML CUP PO ONE (05:00)
[2018-07-15] MEDS ORDERED: MAGNESIUM HYDROXIDE 30ML CUP PO PRN (05:00)
[2018-07-15] MEDS: TIGECYCLINE 50 MG in SOD CHLORIDE 0.9% 100 ML IVPB SCH ×2 (06:37→18:12)
[2018-07-15 07:23] VITALS: BP 135/75; PULSE 77; RESP 18
[2018-07-15] MEDS: INSULIN ASPART [NOVOLOG] 3 ML PEN SC SCH ×4 (07:50→21:00)
[2018-07-15] MEDS: CITRIC ACID/NA CITRATE 30 ML CUP PO SCH ×2 (08:47→21:15)
[2018-07-15] MEDS: ASCORBIC ACID 250 MG TAB PO SCH (08:47)
[2018-07-15] MEDS: ZINC SULFATE 220 MG CAP PO SCH (08:48)
[2018-07-15] MEDS: CEFEPIME 1GM/50 ML (PMX) 50 ML IVPB SCH ×2 (08:50→21:15)
[2018-07-15] MEDS: ASPIRIN 81 MG TAB PO SCH (08:50)
[2018-07-15] MEDS: NIFEdipine (XL) 60 MG TAB PO SCH (08:54)
[2018-07-15] MEDS: MINERAL OIL 240 ML LOT TOP SCH ×2 (09:00→21:30)
[2018-07-15] MEDS: GENTAMICIN 0.1% 15 GM OINT TOP SCH ×2 (09:00→21:16)
[2018-07-15] MEDS: DAKINS 0.0125%(1/40) 473 ML SOLUTION TP SCH ×2 (09:01→21:17)
[2018-07-15] MEDS: COLLAGENASE 5 GM (UD JAR) TOP SCH ×2 (09:01→21:51)
--- NOTE | 2018-07-15 09:13 | PN ---
DATE: 07/15/2018 SUBJECTIVE: The patient is stable. No events overnight. OBJECTIVE: VITAL SIGNS: Blood pressure is 135/75, pulse 77, respirations 18, temperature 97.7. HEENT: Head is normocephalic. NECK: Supple. HEART: Regular rate. LUNGS: Show diminished breath sounds at the base. ABDOMEN: Soft, nontender to palpation without rebound or guarding. EXTREMITIES: Negative for clubbing, cyanosis, no edema. Necrotic wounds on bilateral lower extremit ies. DERMATOLOGIC: No rashes. MUSCULOSKELETAL: No joint effusion. NEUROLOGIC: No change in exam. MEDICATIONS: Reviewed. LABORATORY DATA: Reviewed. ASSESSMENT AND PLAN: 1. Nonoliguric acute kidney injury on top of chronic kidney disease stage III. Etiology of acute ki dney injury is secondary to hemodynamics. Renal function is fluctuating but appears to be stabilizin g around a creatinine of 1.3 mg/dL. At this point, continue current treatment plan, supportive care, renally dose all medicines. 2. Anemia. Continue to monitor hemoglobin and hematocrit levels. 3. Mineral bone disorder, monitor calcium and phosphorus levels. 4. Metabolic acidosis, improving. Continue Bicitra. 5. Hypertension. Continue current blood pressure regimen. 6. Bilateral gangrenous lower extremity wounds with osteomyelitis. Continue antibiotic therapy. Fo llow up with podiatry and Infectious Disease. 7. Neurogenic bladder. Continue to monitor. 8. Diabetes. Continue current insulin regimen. 9. History of cerebrovascular accident. Dictated By: PARI TRAN DO NR/NTS Conf#: [id number] DID#: [id number] CC: DANNY ARCHULETA MD; TALI ROBLES MD; HAKAN HARMON DPM;*EndCC*
[2018-07-15] MEDS ORDERED: NA PHOSPHATE/BIPHOS 133 ML ENEMA PR ONE (11:00)
[2018-07-15 15:00] VITALS: BP 129/74; PULSE 71; RESP 18
--- NOTE | 2018-07-15 15:37 | PDOCDIS ---
Discharge Instructions CONDITION [address] Patient Condition: [address] Stable HOME CARE INSTRUCTIONS: [id number] Diet Instructions: [address] Diabetic, cardiac diet ACTIVITY: [address] Activity Restrictions: [address] Slowly Increase Activity Rest between Activity Avoid heavy lifting Do not Drive Do not operate Power Tool Avoid Heavy Housework No Weight Bearing [address] Bathing Restrictions: [address] Shower FOLLOW UP/APPOINTMENTS Follow-up Plan appt Primary & Podiatry next Week. Dialysis as before. REFERRALS [address] Agency Name and Phone [address] Pharmacy Number: - [facility] DANNY ARCHULETA MD Jul 15, 2018 15:37
--- NOTE | 2018-07-15 15:41 | CONS ---
Assessment/Plan Assessment/Plan Hospital Course (Demo Recall) No acute changes. Patient is sleeping, looks comfortable Antimicrobials: Tygacil, cefepime Microbiology: Wound culture grew multidrug-resistant Acinetobacter, enterococcus, E. coli Physical examination: Well-developed well-nourished middle-aged woman who is alert in no distress. Head atraumatic normocephalic sclera nonicteric. Neck is supple. Chest rise symmetrical, breath sounds clear. Heart: S1-S2. Abdomen soft bowel sounds present. Extremities with bilateral lower extremities dressing clean dry and intact Assessment: 1. Bilateral lower extremities gangrene/Osteomyelitis 2. Chronic kidney disease, history of hemodialysis 3. Diabetes 4. RUE PICC Plan: Remains stable, continue abx, possible debridement. Pt will need 6+ weeks IV abx if infected part of the bone not removed Discussed with Dr. Rice Consultation Date/Type/Reason Admit Date/Time Jul 07, 2018 at 12:55 Initial Consult Date Type of Consult id Date/Time of Note DATE: 07/15/18 TIME: 15:40 Exam/Review of Systems Exam Vitals Vital Signs Date Temp Pulse Resp B/P (MAP) Pulse Ox O2 O2 Flow FiO2 Time Delivery Rate 07/15/18 97.7 77 18 135/75 100 Room Air 07:23 (95) Intake and Output 07/14/18 07/14/18 07/15/18 1515:00 23:00 07:00 IntakeIntake Total 750 ml 390 ml OutputOutput Total 800 ml 600 ml BalanceBalance -50 ml -210 ml Results Result Diagram: 07/15/18 0446 07/15/18 0446 Results 24hrs Laboratory Tests Test 07/14/18 17:34 07/14/18 22:09 07/15/18 04:46 07/15/18 08:58 Bedside Glucose 115 180 104 White Blood Count 10.3 Red Blood Count 3.37 L Hemoglobin 9.2 L Hematocrit 28.6 L Mean Corpuscular 84.9 Volume Mean Corpuscular 27.3 L Hemoglobin Mean Corpuscular 32.2 Hemoglobin Concent Red Cell 14.3 Distribution Width Platelet Count 322 Mean Platelet Volume 10.5 H Immature 0.600 H Granulocytes % Neutrophils % 63.2 Lymphocytes % 18.2 Monocytes % 9.7 Eosinophils % 7.1 H Basophils % 1.2 Nucleated Red Blood 0.0 Cells % Immature 0.060 H Granulocytes # Neutrophils # 6.5 Lymphocytes # 1.9 Monocytes # 1.0 H Eosinophils # 0.7 H Basophils # 0.1 Nucleated Red Blood 0.0 Cells # Sodium Level 143 Potassium Level 3.8 Chloride Level 115 H Carbon Dioxide Level 20 L Anion Gap 8 Blood Urea Nitrogen 50 H Creatinine 1.21 H Est Glomerular 48 L Filtrat Rate mL/min Glucose Level 119 # Calcium Level 8.7 Test 07/15/18 12:55 Bedside Glucose 157 Medications Medication Current Medications Atorvastatin Calcium (Lipitor) 40 mg HS PO Last administered on 07/14/18 22:25; Admin Dose 40 MG; Start 07/07/18 at 21:00 IV Flush (NS 3 ml) 3 ml PER PROTOCOL IV ; Start 07/07/18 at 14:30 Ondansetron HCl (Zofran Inj) 4 mg Q6H PRN IV NAUSEA/VOMITING; Start 07/07/18 at 14:30 Acetaminophen (Tylenol Tab) 650 mg Q6H PRN PO .PAIN 1-3 OR TEMP Last administe red on 07/13/18at 15:36; Admin Dose 650 MG; Start 07/07/18 at 14:30 Acetaminophen/ Hydrocodone Bitart ([place] (5/325)) 1 tab Q6H PRN PO .MOD PAIN 4- 6; Start 07/07/18 at 14:30 Docusate Sodium (Colace) 100 mg Q12H PRN PO .CONSTIPATION Last administered on 07/10/18at 09:02; Admin Dose 100 MG; Start 07/07/18 at 14:30 Diagnostic Test (Pha) (Accu-Chek) 1 ea 02 XX Last administered on 07/08/18at 02:05; Admin Dose 1 EA; Start 07/08/18 at 02:00 Insulin Glargine (Lantus) 9 units DAILY@2000 SC Last administered on 07/14/18at 22:24; Admin Dose 9 UNITS; Start 07/07/18 at 20:00 Insulin Aspart (Novolog Insulin Pen) NOVOLOG *MILD* ALGORITHM WITH MEALS BEDTIME SC Last administered on 07/15/18at 12:58; Admin Dose 1 UNIT; Start 07/07/18 at 17:55 Miscellaneous Information 1 ea NOTE XX ; Start 07/07/18 at 15:00 Glucose (Glutose) 15 gm Q15M PRN PO DECREASED GLUCOSE; Start 07/07/18 at 15:00 Glucose (Glutose) 22.5 gm Q15M PRN PO DECREASED GLUCOSE; Start 07/07/18 at 15:00 Dextrose (D50w Syringe) 25 ml Q15M PRN IV DECREASED GLUCOSE; Start 07/07/18 at 15:00 Dextrose (D50w Syringe) 50 ml Q15M PRN IV DECREASED GLUCOSE; Start 07/07/18 at 15:00 Glucagon (Glucagen) 1 mg Q15M PRN IM DECREASED GLUCOSE; Start 07/07/18 at 15:00 Glucose (Glutose) 15 gm Q15M PRN BUCCAL DECREASED GLUCOSE; Start 07/07/18 at 15:00 Zinc Sulfate (Zinc Sulfate) 220 mg DAILY PO Last administered on 07/15/18 08:48; Admin Dose 220 MG; Start 07/08/18 at 09:00 Mineral Oil (Eucerin Lotion) 1 applic BID TOP Last administered on 07/15/18 09:00; Admin Dose 1 APPLIC; Start 07/07/18 at 21:00 IV Flush (NS 10 ml) 10 ml PRN PRN IV FLUSH LINE; Start 07/07/18 at 17:30 Sodium Hypochlorite (Dakins Diluted (1/40)) 1 applic BID TP Last administered on 07/15/18 09:01; Admin Dose 1 APPLIC; Start 07/07/18 at 23:00 Cefepime HCl 50 ml @ 100 mls/hr Q12 IVPB Last administered on 07/15/18 08:50; Admin Dose 100 MLS/HR; Start 07/08/18 at 21:00 Tigecycline 50 mg/ Sodium Chloride 100 ml @ 200 mls/hr Q12H IVPB Last administered on 07/15/18 06:37; Admin Dose 200 MLS/HR; Start 07/09/18 at 06:00 Aspirin (Aspirin) 81 mg DAILY PO Last administered on 07/15/18 08:50; Admin Dose 81 MG; Start 07/09/18 at 12:00 Alteplase, Recombinant (Cathflo (Activase)) 2 mg MAY REPEAT X1 PRN CATHETER IF CATHETER REMAINS OCCULUDED Last administered on 07/12/18at 06:56; Admin Dose 2 MG; Start 07/12/18 at 05:30 Citric Acid/ Sodium Citrate (Bicitra) 30 ml BID PO Last administered on 07/15/18 08:47; Admin Dose 30 ML; Start 07/12/18 at 21:00 Collagenase (Santyl) 1 applic BID TOP Last administered on 07/15/18 09:01; Admin Dose 1 APPLIC; Start 07/13/18 at 15:30 Gentamicin Sulfate (Gentamicin 0.1% Oint) 1 applic BID TOP Last administered on 07/15/18 09:00; Admin Dose 1 APPLIC; Start 07/13/18 at 15:30 Ascorbic Acid (Vitamin C) 250 mg DAILY PO Last administered on 07/15/18 08:47; Admin Dose 250 MG; Start 07/14/18 at 09:00 Carvedilol (Coreg) 25 mg BID PO Last administered on 07/15/18 08:50; Admin Dose 25 MG; Start 07/14/18 at 09:00 Nifedipine (Procardia Xl) 60 mg DAILY PO Last administered on 07/15/18 08:54; Admin Dose 60 MG; Start 07/14/18 at 09:00 Magnesium Hydroxide (Milk Of Mag) 30 ml BID PRN PO CONSTIPATION; Start 07/15/18 at 05:00 SEBASTIAN BARRETO NP Jul 15, 2018 15:41
[2018-07-15] MEDS ORDERED: CARV25TA79 PO (15:42)
[2018-07-15] MEDS ORDERED: ACET325T33 PO (15:42)
[2018-07-15] MEDS ORDERED: ZINC220C5 PO (15:42)
[2018-07-15] MEDS ORDERED: [UNRECOGNIZED DRUG - CODE] TOP (15:42)
[2018-07-15] MEDS ORDERED: SODI473S5 TP (15:42)
[2018-07-15] MEDS ORDERED: BICS PO (15:42)
[2018-07-15] MEDS ORDERED: ASCO250T96 PO (15:42)
[2018-07-15] MEDS ORDERED: SAN30GM TOP (15:42)
[2018-07-15] MEDS ORDERED: GENT30OI2 TOP (15:42)
--- NOTE | 2018-07-15 16:48 | PN ---
Date/Time of Note Date/Time of Note DATE: 07/15/18 TIME: 16:47 Assessment/Plan VTE Prophylaxis Risk score (from Nsg)>0 risk: 6 SCD applied (from Nsg): Yes SCD contraindicated: low risk/ambulating Pharmacological prophylaxis: LMWH Lines/Catheters IV Catheter Type (from Nrsg): PICC Line Central line still needed: Yes Urinary Cath still in place: No Assessment/Plan Hospital Course Assessment and plan 1. Chr osteomyelitis/gangrene of both feet. Cont antibiotics/ wound care. Debridement: ~lt foot TMA, rt foot digital debridement ~may be next week. -No chest pain dyspnea, may proceed forward to surgery/debridement as indicated with low perioperative risk. Outpatient follow-up podiatry 2. Failure to thrive; dc home with home health antibiotics pic care. can visit podiatry next week. 3. Type 2 diabetes 4. Nonadherence refused surgery in the past 5. CKD with acute renal failure, stable improved 6. Anemia stable observe 7. History of stroke 8. Hypertension 9. Urinary retention neurogenic bladder?/Autonomic dysfunction? 10. Adjustment disorder cute stress disorder, appreciate behavioral health assistance Subjective: 07/12 events noted no chest pain dyspnea fever. : No events 07/14: No events. Not much pain. Tearful but prepared for surgery and possible limb loss. 07/15 no distress. No fever dyspnea. Home tomorrow. O: Vital signs stable Physical exam No pallor Regular Clear Benign Both feet c/d/i Result Diagram: 07/15/18 0446 07/15/18 0446 Results 24hrs Laboratory Tests Test 07/14/18 17:34 07/14/18 22:09 07/15/18 04:46 07/15/18 08:58 Bedside Glucose 115 180 104 White Blood Count 10.3 Red Blood Count 3.37 L Hemoglobin 9.2 L Hematocrit 28.6 L Mean Corpuscular 84.9 Volume Mean Corpuscular 27.3 L Hemoglobin Mean Corpuscular 32.2 Hemoglobin Concent Red Cell 14.3 Distribution Width Platelet Count 322 Mean Platelet Volume 10.5 H Immature 0.600 H Granulocytes % Neutrophils % 63.2 Lymphocytes % 18.2 Monocytes % 9.7 Eosinophils % 7.1 H Basophils % 1.2 Nucleated Red Blood 0.0 Cells % Immature 0.060 H Granulocytes # Neutrophils # 6.5 Lymphocytes # 1.9 Monocytes # 1.0 H Eosinophils # 0.7 H Basophils # 0.1 Nucleated Red Blood 0.0 Cells # Sodium Level 143 Potassium Level 3.8 Chloride Level 115 H Carbon Dioxide Level 20 L Anion Gap 8 Blood Urea Nitrogen 50 H Creatinine 1.21 H Est Glomerular 48 L Filtrat Rate mL/min Glucose Level 119 # Calcium Level 8.7 Test 07/15/18 12:55 Bedside Glucose 157 Exam/Review of Systems Exam Vitals Vital Signs Date Temp Pulse Resp B/P (MAP) Pulse Ox O2 O2 Flow FiO2 Time Delivery Rate 07/15/18 98.0 71 18 129/74 100 15:00 (92) 07/15/18 Room Air 07:23 Intake and Output 07/14/18 07/14/18 07/15/18 1515:00 23:00 07:00 IntakeIntake Total 750 ml 390 ml OutputOutput Total 800 ml 600 ml BalanceBalance -50 ml -210 ml Results Results 24hrs Laboratory Tests Test 07/14/18 17:34 07/14/18 22:09 07/15/18 04:46 07/15/18 08:58 Bedside Glucose 115 180 104 White Blood Count 10.3 Red Blood Count 3.37 L Hemoglobin 9.2 L Hematocrit 28.6 L Mean Corpuscular 84.9 Volume Mean Corpuscular 27.3 L Hemoglobin Mean Corpuscular 32.2 Hemoglobin Concent Red Cell 14.3 Distribution Width Platelet Count 322 Mean Platelet Volume 10.5 H Immature 0.600 H Granulocytes % Neutrophils % 63.2 Lymphocytes % 18.2 Monocytes % 9.7 Eosinophils % 7.1 H Basophils % 1.2 Nucleated Red Blood 0.0 Cells % Immature 0.060 H Granulocytes # Neutrophils # 6.5 Lymphocytes # 1.9 Monocytes # 1.0 H Eosinophils # 0.7 H Basophils # 0.1 Nucleated Red Blood 0.0 Cells # Sodium Level 143 Potassium Level 3.8 Chloride Level 115 H Carbon Dioxide Level 20 L Anion Gap 8 Blood Urea Nitrogen 50 H Creatinine 1.21 H Est Glomerular 48 L Filtrat Rate mL/min Glucose Level 119 # Calcium Level 8.7 Test 07/15/18 12:55 Bedside Glucose 157 Medications Medication Current Medications Atorvastatin Calcium (Lipitor) 40 mg HS PO Last administered on 07/14/18at 22:25; Admin Dose 40 MG; Start 07/07/18 at 21:00 IV Flush (NS 3 ml) 3 ml PER PROTOCOL IV ; Start 07/07/18 at 14:30 Ondansetron HCl (Zofran Inj) 4 mg Q6H PRN IV NAUSEA/VOMITING; Start 07/07/18 at 14:30 Acetaminophen (Tylenol Tab) 650 mg Q6H PRN PO .PAIN 1-3 OR TEMP Last administered on 07/13/18at 15:36; Admin Dose 650 MG; Start 07/07/18 at 14:30 Acetaminophen/ Hydrocodone Bitart ([place] (5/325)) 1 tab Q6H PRN PO .MOD PAIN 4- 6; Start 07/07/18 at 14:30 Docusate Sodium (Colace) 100 mg Q12H PRN PO .CONSTIPATION Last administered on 07/10/18at 09:02; Admin Dose 100 MG; Start 07/07/18 at 14:30 Diagnostic Test (Pha) (Accu-Chek) 1 ea 02 XX Last administered on 07/08/18at 02:05; Admin Dose 1 EA; Start 07/08/18 at 02:00 Insulin Glargine (Lantus) 9 units DAILY@2000 SC Last administered on 07/14/18at 22:24; Admin Dose 9 UNITS; Start 07/07/18 at 20:00 Insulin Aspart (Novolog Insulin Pen) NOVOLOG *MILD* ALGORITHM WITH MEALS BEDTIME SC Last administered on 07/15/18at 12:58; Admin Dose 1 UNIT; Start 07/07/18 at 17:55 Miscellaneous Information 1 ea NOTE XX ; Start 07/07/18 at 15:00 Glucose (Glutose) 15 gm Q15M PRN PO DECREASED GLUCOSE; Start 07/07/18 at 15:00 Glucose (Glutose) 22.5 gm Q15M PRN PO DECREASED GLUCOSE; Start 07/07/18 at 15:00 Dextrose (D50w Syringe) 25 ml Q15M PRN IV DECREASED GLUCOSE; Start 07/07/18 at 15:00 Dextrose (D50w Syringe) 50 ml Q15M PRN IV DECREASED GLUCOSE; Start 07/07/18 at 15:00 Glucagon (Glucagen) 1 mg Q15M PRN IM DECREASED GLUCOSE; Start 07/07/18 at 15:00 Glucose (Glutose) 15 gm Q15M PRN BUCCAL DECREASED GLUCOSE; Start 07/07/18 at 15:00 Zinc Sulfate (Zinc Sulfate) 220 mg DAILY PO Last administered on 07/15/18 08:48; Admin Dose 220 MG; Start 07/08/18 at 09:00 Mineral Oil (Eucerin Lotion) 1 applic BID TOP Last administered on 07/15/18 09:00; Admin Dose 1 APPLIC; Start 07/07/18 at 21:00 IV Flush (NS 10 ml) 10 ml PRN PRN IV FLUSH LINE; Start 07/07/18 at 17:30 Sodium Hypochlorite (Dakins Diluted (40)) 1 applic BID TP Last administered on 07/15/18 09:01; Admin Dose 1 APPLIC; Start 07/07/18 at 23:00 Cefepime HCl 50 ml @ 100 mls/hr Q12 IVPB Last administered on 07/15/18 08:50; Admin Dose 100 MLS/HR; Start 07/08/18 at 21:00 Tigecycline 50 mg/ Sodium Chloride 100 ml @ 200 mls/hr Q12H IVPB Last administ ered on 07/15/18 06:37; Admin Dose 200 MLS/HR; Start 07/09/18 at 06:00 Aspirin (Aspirin) 81 mg DAILY PO Last administered on 07/15/18 08:50; Admin Dose 81 MG; Start 07/09/18 at 12:00 Alteplase, Recombinant (Cathflo (Activase)) 2 mg MAY REPEAT X1 PRN CATHETER IF CATHETER REMAINS OCCULUDED Last administered on 07/12/18 06:56; Admin Dose 2 MG; Start 07/12/18 at 05:30 Citric Acid/ Sodium Citrate (Bicitra) 30 ml BID PO Last administered on 07/15/18 08:47; Admin Dose 30 ML; Start 07/12/18 at 21:00 Collagenase (Santyl) 1 applic BID TOP Last administered on 07/15/18 09:01; Admin Dose 1 APPLIC; Start 07/13/18 at 15:30 Gentamicin Sulfate (Gentamicin 0.1% Oint) 1 applic BID TOP Last administered on 07/15/18 09:00; Admin Dose 1 APPLIC; Start 07/13/18 at 15:30 Ascorbic Acid (Vitamin C) 250 mg DAILY PO Last administered on 4/25/19at 08:47; Admin Dose 250 MG; Start 07/14/18 at 09:00 Carvedilol (Coreg) 25 mg BID PO Last administered on 07/15/18at 08:50; Admin Dose 25 MG; Start 07/14/18 at 09:00 Nifedipine (Procardia Xl) 60 mg DAILY PO Last administered on 07/15/18 08:54; Admin Dose 60 MG; Start 07/14/18 at 09:00 Magnesium Hydroxide (Milk Of Mag) 30 ml BID PRN PO CONSTIPATION; Start 07/15/18 at 05:00 DANNY ARCHULETA MD Jul 15, 2018 16:48
[2018-07-15 19:50] VITALS: BP 128/73; PULSE 77; RESP 20
[2018-07-15 19:55] VITALS: BP 128/73; PULSE 77; RESP 20
[2018-07-15] MEDS: ATORVASTATIN 40 MG TAB PO SCH (21:15)
[2018-07-15] MEDS: INSULIN GLARGINE [LANTus] (100 UNITS/ML) SYG SC SCH (21:21)
[2018-07-15] MEDS: ACETAMINOPHEN 325 MG TAB PO PRN (22:29)
[2018-07-16] MEDS: ACCU-CHEK XX SCH (02:00)
[2018-07-16 02:20] VITALS: BP 132/77; PULSE 63; RESP 20
[2018-07-16 02:30] VITALS: BP 132/77; PULSE 63; RESP 20
[2018-07-16] MEDS: TIGECYCLINE 50 MG in SOD CHLORIDE 0.9% 100 ML IVPB SCH ×2 (06:27→17:13)
[2018-07-16 07:41] VITALS: BP 128/68; PULSE 68; RESP 19
[2018-07-16] MEDS: INSULIN ASPART [NOVOLOG] 3 ML PEN SC SCH ×4 (07:50→21:00)
[2018-07-16] MEDS: ASCORBIC ACID 250 MG TAB PO SCH (08:30)
[2018-07-16] MEDS: CEFEPIME 1GM/50 ML (PMX) 50 ML IVPB SCH ×2 (08:30→21:36)
[2018-07-16] MEDS: ASPIRIN 81 MG TAB PO SCH (08:30)
[2018-07-16] MEDS: ZINC SULFATE 220 MG CAP PO SCH (08:30)
[2018-07-16] MEDS: NIFEdipine (XL) 60 MG TAB PO SCH (08:31)
[2018-07-16] MEDS: CITRIC ACID/NA CITRATE 30 ML CUP PO SCH ×2 (08:32→21:36)
[2018-07-16] MEDS: GENTAMICIN 0.1% 15 GM OINT TOP SCH (08:33)
[2018-07-16] MEDS: DAKINS 0.0125%(1/40) 473 ML SOLUTION TP SCH (08:33)
--- NOTE | 2018-07-16 09:17 | PN ---
DATE: 07/15/2018 SUBJECTIVE: The patient is stable, no events overnight. No fevers, chills, nausea, vomiting. OBJECTIVE: VITAL SIGNS: Blood pressure is 128/68, pulse 68, respiration 19, temperature 98.2. HEENT: Head is normocephalic. NECK: Supple. HEART: Regular rate. LUNGS: Show diminished breath sounds at the base. ABDOMEN: Soft, nontender to palpation without rebound or guarding. EXTREMITIES: Negative for clubbing, cyanosis, no edema. DERMATOLOGIC: No rashes. MUSCULOSKELETAL: No joint effusion. NEUROLOGIC: No change in exam. MEDICATIONS: Reviewed. LABORATORY DATA: From 07/15/2018 was reviewed. ASSESSMENT AND PLAN: 1. Nonoliguric acute kidney injury on top of chronic kidney disease stage III. Etiology of acute ki dney injury is secondary to hemodynamics. Renal function is fluctuating, but appears to be stabilizi ng. Creatinine 1.2 mg/dL. At this point, continue current treatment plan, supportive care, renally dose all meds. 2. Anemia. Continue to monitor hemoglobin and hematocrit levels. 3. Mineral bone disorder, monitor calcium and phosphorus levels. 4. Metabolic acidosis. Continue Bicitra. 5. Hypertension. Continue current blood pressure regimen. 6. Bilateral gangrenous lower extremity wounds with osteomyelitis. Continue current antibiotic ther apy. The patient to follow up with podiatry in outpatient setting. 7. Neurogenic bladder. Continue to monitor. 8. Diabetes. Continue current insulin regimen. 9. History of cerebrovascular accident. Dictated By: PARI AMAYA/LESLIE Conf#: [id number] DID#: [id number] CC: TALI ROBLES MD;*EndCC*
--- NOTE | 2018-07-16 11:37 | CONS ---
Assessment/Plan Assessment/Plan Hospital Course (Demo Recall) No acute changes All noted Antimicrobials: Tygacil, cefepime Microbiology: Wound culture grew multidrug-resistant Acinetobacter, enterococcus, E. coli Physical examination: Well-developed well-nourished middle-aged woman who is alert in no distress. Head atraumatic normocephalic sclera nonicteric. Neck is supple. Chest rise symmetrical, breath sounds clear. Heart: S1-S2. Abdomen soft bowel sounds present. Extremities with bilateral lower extremities dressing clean dry and intact Assessment: 1. Bilateral lower extremities gangrene/Osteomyelitis 2. Chronic kidney disease, history of hemodialysis 3. Diabetes 4. RUE PICC Plan: Remains stable, continue on current abx for 6+ weeks unless infected bone being removed removed, f/u podiatry rec-s Discussed with Dr. Rice Consultation Date/Type/Reason Admit Date/Time Jul 07, 2018 at 12:55 Initial Consult Date Type of Consult id Date/Time of Note DATE: 07/16/18 TIME: 11:34 Exam/Review of Systems Exam Vitals Vital Signs Date Temp Pulse Resp B/P (MAP) Pulse Ox O2 O2 Flow FiO2 Time Delivery Rate 07/16/18 98.2 68 19 128/68 96 07:41 (88) 07/16/18 Room Air 02:30 Intake and Output 07/15/18 07/15/18 07/16/18 1515:00 23:00 07:00 IntakeIntake Total 350 ml 600 ml OutputOutput Total 300 ml BalanceBalance 350 ml 300 ml Results Result Diagram: 07/15/18 0446 07/15/18 0446 Results 24hrs Laboratory Tests Test 07/15/18 12:55 07/15/18 18:00 07/15/18 21:19 07/16/18 08:28 Bedside Glucose 157 168 125 96 Medications Medication Current Medications Atorvastatin Calcium (Lipitor) 40 mg HS PO Last administered on 07/15/18at 21:15; Admin Dose 40 MG; Start 07/07/18 at 21:00 IV Flush (NS 3 ml) 3 ml PER PROTOCOL IV ; Start 07/07/18 at 14:30 Ondansetron HCl (Zofran Inj) 4 mg Q6H PRN IV NAUSEA/VOMITING; Start 07/07/18 at 14:30 Acetaminophen (Tylenol Tab) 650 mg Q6H PRN PO .PAIN 1-3 OR TEMP Last ad ministered on 07/15/18at 22:29; Admin Dose 650 MG; Start 07/07/18 at 14:30 Acetaminophen/ Hydrocodone Bitart ([place] (5/325)) 1 tab Q6H PRN PO .MOD PAIN 4- 6; Start 07/07/18 at 14:30 Docusate Sodium (Colace) 100 mg Q12H PRN PO .CONSTIPATION Last administered on 07/10/18at 09:02; Admin Dose 100 MG; Start 07/07/18 at 14:30 Diagnostic Test (Pha) (Accu-Chek) 1 ea 02 XX Last administered on 07/08/18 02 :05; Admin Dose 1 EA; Start 07/08/18 at 02:00 Insulin Glargine (Lantus) 9 units DAILY@2000 SC Last administered on 07/15/18 21:21; Admin Dose 9 UNITS; Start 07/07/18 at 20:00 Insulin Aspart (Novolog Insulin Pen) NOVOLOG *MILD* ALGORITHM WITH MEALS BEDTIME SC Last administered on 07/15/18 18:03; Admin Dose 1 UNIT; Start 07/07/18 at 17:55 Miscellaneous Information 1 ea NOTE XX ; Start 07/07/18 at 15:00 Glucose (Glutose) 15 gm Q15M PRN PO DECREASED GLUCOSE; Start 07/07/18 at 15:00 Glucose (Glutose) 22.5 gm Q15M PRN PO DECREASED GLUCOSE; Start 07/07/18 at 15:00 Dextrose (D50w Syringe) 25 ml Q15M PRN IV DECREASED GLUCOSE; Start 07/07/18 at 15:00 Dextrose (D50w Syringe) 50 ml Q15M PRN IV DECREASED GLUCOSE; Start 07/07/18 at 15:00 Glucagon (Glucagen) 1 mg Q15M PRN IM DECREASED GLUCOSE; Start 07/07/18 at 15:00 Glucose (Glutose) 15 gm Q15M PRN BUCCAL DECREASED GLUCOSE; Start 07/07/18 at 15:00 Zinc Sulfate (Zinc Sulfate) 220 mg DAILY PO Last administered on 07/16/18 08:30; Admin Dose 220 MG; Start 07/08/18 at 09:00 Mineral Oil (Eucerin Lotion) 1 applic BID TOP Last administered on 07/15/18 21:30; Admin Dose 1 APPLIC; Start 07/07/18 at 21:00 IV Flush (NS 10 ml) 10 ml PRN PRN IV FLUSH LINE; Start 07/07/18 at 17:30 Sodium Hypochlorite (Dakins Diluted (40)) 1 applic BID TP Last administered on 07/16/18 08:33; Admin Dose 1 APPLIC; Start 07/07/18 at 23:00 Cefepime HCl 50 ml @ 100 mls/hr Q12 IVPB Last administered on 07/16/18 08:30; Admin Dose 100 MLS/HR; Start 07/08/18 at 21:00 Tigecycline 50 mg/ Sodium Chloride 100 ml @ 200 mls/hr Q12H IVPB Last administered on 07/16/18 06:27; Admin Dose 200 MLS/HR; Start 07/09/18 at 06:00 Aspirin (Aspirin) 81 mg DAILY PO Last administered on 07/16/18 08:30; Admin Dose 81 MG; Start 07/09/18 at 12:00 Alteplase, Recombinant (Cathflo (Activase)) 2 mg MAY REPEAT X1 PRN CATHETER IF CATHETER REMAINS OCCULUDED Last administered on 07/12/18 06:56; Admin Dose 2 MG; Start 07/12/18 at 05:30 Citric Acid/ Sodium Citrate (Bicitra) 30 ml BID PO Last administered on 07/16/18 08:32; Admin Dose 30 ML; Start 07/12/18 at 21:00 Collagenase (Santyl) 1 applic BID TOP Last administered on 07/15/18 21:51; Admin Dose 1 APPLIC; Start 07/13/18 at 15:30 Gentamicin Sulfate (Gentamicin 0.1% Oint) 1 applic BID TOP Last administered on 07/16/18 08:33; Admin Dose 1 APPLIC; Start 07/13/18 at 15:30 Ascorbic Acid (Vitamin C) 250 mg DAILY PO Last administered on 07/16/18 08:30; Admin Dose 250 MG; Start 07/14/18 at 09:00 Carvedilol (Coreg) 25 mg BID PO Last administered on 07/16/18 08:32; Admin Dose 25 MG; Start 07/14/18 at 09:00 Nifedipine (Procardia Xl) 60 mg DAILY PO Last administered on 07/16/18at 08:31; Admin Dose 60 MG; Start 07/14/18 at 09:00 Magnesium Hydroxide (Milk Of Mag) 30 ml BID PRN PO CONSTIPATION; Start 07/15/18 at 05:00 SEBASTIAN BARRETO NP Jul 16, 2018 11:37
[2018-07-16] MEDS: MINERAL OIL 240 ML LOT TOP SCH ×2 (12:39→21:41)
[2018-07-16] MEDS: COLLAGENASE 5 GM (UD JAR) TOP SCH (12:41)
[2018-07-16] MEDS: ACETAMINOPHEN 325 MG TAB PO PRN (17:12)
--- NOTE | 2018-07-16 17:47 | PN ---
Date/Time of Note Date/Time of Note DATE: 07/16/18 TIME: 17:47 Assessment/Plan VTE Prophylaxis Risk score (from Nsg)>0 risk: 4 SCD applied (from Nsg): No SCD contraindicated: low risk/ambulating Pharmacological prophylaxis: LMWH Lines/Catheters IV Catheter Type (from Nrsg): PICC Line Central line still needed: Yes Urinary Cath still in place: No Assessment/Plan Hospital Course Assessment and plan 1. Chr osteomyelitis/gangrene of both feet. Cont antibiotics/ wound care. Debridement: ~lt foot TMA, rt foot digital debridement ~may be next week. -No chest pain dyspnea, may proceed forward to surgery/debridement as indicated with low perioperative risk. Outpatient follow-up podiatry 2. Failure to thrive; dc home with home health/ antibiotics/ picc care. can visit podiatry next week. 3. Type 2 diabetes 4. Nonadherence refused surgery in the past 5. CKD with acute renal failure, stable improved 6. Anemia stable observe 7. History of stroke 8. Hypertension 9. Urinary retention neurogenic bladder?/Autonomic dysfunction? 10. Adjustment disorder cute stress disorder, appreciate behavioral health assistance Subjective: 07/12 events noted no chest pain dyspnea fever. /: No events 07/14: No events. Not much pain. Tearful but prepared for surgery and possible limb loss. 07/15 no distress. No fever dyspnea. Home tomorrow. 07/16: Home versus SNF TBD O: Vss Physical exam No pallor Regular Clear Benign Both feet c/d/i Result Diagram: 07/15/18 0446 07/15/18 0446 Results 24hrs Laboratory Tests Test 07/15/18 18:00 07/15/18 21:19 07/16/18 08:28 07/16/18 12:37 Bedside Glucose 168 125 96 132 Test 07/16/18 17:18 Bedside Glucose 152 Exam/Review of Systems Exam Vitals Vital Signs Date Temp Pulse Resp B/P (MAP) Pulse Ox O2 O2 Flow FiO2 Time Delivery Rate 07/16/18 98.2 68 19 128/68 96 07:41 (88) 07/16/18 Room Air 02:30 Intake and Output 07/15/18 07/15/18 07/16/18 1515:00 23:00 07:00 IntakeIntake Total 350 ml 600 ml OutputOutput Total 300 ml BalanceBalance 350 ml 300 ml Results Results 24hrs Laboratory Tests Test 07/15/18 18:00 07/15/18 21:19 07/16/18 08:28 07/16/18 12:37 Bedside Glucose 168 125 96 132 Test 07/16/18 17:18 Bedside Glucose 152 Medications Medication Current Medications Atorvastatin Calcium (Lipitor) 40 mg HS PO Last administered on 07/15/18at 21:15; Admin Dose 40 MG; Start 07/07/18 at 21:00 IV Flush (NS 3 ml) 3 ml PER PROTOCOL IV ; Start 07/07/18 at 14:30 Ondansetron HCl (Zofran Inj) 4 mg Q6H PRN IV NAUSEA/VOMITING; Start 07/07/18 at 14:30 Acetaminophen (Tylenol Tab) 650 mg Q6H PRN PO .PAIN 1-3 OR TEMP Last administered on 07/16/18at 17:12; Admin Dose 650 MG; Start 07/07/18 at 14:30 Acetaminophen/ Hydrocodone Bitart ([place] (5/325)) 1 tab Q6H PRN PO .MOD PAIN 4- 6; Start 07/07/18 at 14:30 Docusate Sodium (Colace) 100 mg Q12H PRN PO .CONSTIPATION Last administered on 07/10/18at 09:02; Admin Dose 100 MG; Start 07/07/18 at 14:30 Diagnostic Test (Pha) (Accu-Chek) 1 ea 02 XX Last administered on 07/08/18at 02:05; Admin Dose 1 EA; Start 07/08/18 at 02:00 Insulin Glargine (Lantus) 9 units DAILY@2000 SC Last administered on 07/15/18at 21:21; Admin Dose 9 UNITS; Start 07/07/18 at 20:00 Insulin Aspart (Novolog Insulin Pen) NOVOLOG *MILD* ALGORITHM WITH MEALS BEDTIME SC Last administered on 07/16/18at 17:30; Admin Dose 1 UNIT; Start 07/07/18 at 17:55 Miscellaneous Information 1 ea NOTE XX ; Start 07/07/18 at 15:00 Glucose (Glutose) 15 gm Q15M PRN PO DECREASED GLUCOSE; Start 07/07/18 at 15:00 Glucose (Glutose) 22.5 gm Q15M PRN PO DECREASED GLUCOSE; Start 07/07/18 at 15:00 Dextrose (D50w Syringe) 25 ml Q15M PRN IV DECREASED GLUCOSE; Start 07/07/18 at 15:00 Dextrose (D50w Syringe) 50 ml Q15M PRN IV DECREASED GLUCOSE; Start 07/07/18 at 15:00 Glucagon (Glucagen) 1 mg Q15M PRN IM DECREASED GLUCOSE; Start 07/07/18 at 15:00 Glucose (Glutose) 15 gm Q15M PRN BUCCAL DECREASED GLUCOSE; Start 07/07/18 at 15:00 Zinc Sulfate (Zinc Sulfate) 220 mg DAILY PO Last administered on 07/16/18 08:30; Admin Dose 220 MG; Start 07/08/18 at 09:00 Mineral Oil (Eucerin Lotion) 1 applic BID TOP Last administered on 07/16/18 12:39; Admin Dose 1 APPLIC; Start 07/07/18 at 21:00 IV Flush (NS 10 ml) 10 ml PRN PRN IV FLUSH LINE; Start 07/07/18 at 17:30 Sodium Hypochlorite (Dakins Diluted (140)) 1 applic BID TP Last administered on 07/16/18 08:33; Admin Dose 1 APPLIC; Start 07/07/18 at 23:00 Cefepime HCl 50 ml @ 100 mls/hr Q12 IVPB Last administered on 07/16/18 08:30; Admin Dose 100 MLS/HR; Start 07/08/18 at 21:00 Tigecycline 50 mg/ Sodium Chloride 100 ml @ 200 mls/hr Q12H IVPB Last administered on 07/16/18 17:13; Admin Dose 200 MLS/HR; Start 07/09/18 at 06:00 Aspirin (Aspirin) 81 mg DAILY PO Last administered on 07/16/18 08:30; Admin Dose 81 MG; Start 07/09/18 at 12:00 Alteplase, Recombinant (Cathflo (Activase)) 2 mg MAY REPEAT X1 PRN CATHETER IF CATHETER REMAINS OCCULUDED Last administered on 07/12/18 06:56; Admin Dose 2 MG; Start 07/12/18 at 05:30 Citric Acid/ Sodium Citrate (Bicitra) 30 ml BID PO Last administered on 07/16/18 08:32; Admin Dose 30 ML; Start 07/12/18 at 21:00 Gentamicin Sulfate (Gentamicin 0.1% Oint) 1 applic BID TOP Last administered on 07/16/18at 08:33; Admin Dose 1 APPLIC; Start 07/13/18 at 15:30 Ascorbic Acid (Vitamin C) 250 mg DAILY PO Last administered on 07/16/18 08:30; Admin Dose 250 MG; Start 07/14/18 at 09:00 Carvedilol (Coreg) 25 mg BID PO Last administered on 07/16/18at 08:32; Admin Dose 25 MG; Start 07/14/18 at 09:00 Nifedipine (Procardia Xl) 60 mg DAILY PO Last administered on 07/16/18at 08:31; Admin Dose 60 MG; Start 07/14/18 at 09:00 Magnesium Hydroxide (Milk Of Mag) 30 ml BID PRN PO CONSTIPATION; Start 07/15/18 at 05:00 Collagenase (Santyl) 1 applic BID TOP ; Start 07/16/18 at 15:45 DANNY ARCHULETA MD Jul 16, 2018 17:47
--- NOTE | 2018-07-16 17:52 | DS ---
Date/Time of Note Date/Time of Note DATE: 07/16/18 TIME: 17:48 Discharge Summary Admission/Discharge Info Admit Date/Time Jul 07, 2018 at 12:55 Discharge Date/Time Patient Condition: Stable Consults [facility] Procedures Left foot MRI IMPRESSION: 1. Findings consistent with osteomyelitis of the second metatarsal head. 2. 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 3. Extensive ulceration of debridement change. There are a soft tissue air surrounding the third metatarsal consistent with gangrene. Right foot MRI IMPRESSION: 1. Bone destructive change in findings consistent with osteomyelitis of the fifth metatarsal head and proximal phalanx as well as the third proximal phalangeal head although there may have a third toe amputation - please compare with plain films. 2. Extensive soft tissue ulceration of the plantar lateral aspect of the foot. 3. Extensive medullary infarcts as described. Hx of Present Illness 48-year-old female with bilateral lower extremity osteomyelitis gangrene admitted for continued medical care and to discuss optionstherapy Hospital Course Hospitalist coverage/hospital course/ assessment and plan Unfortunately has bilateral lower extremity osteomyelitis and gangrene. Surgery vs antibiotics discussed. Was recommended to have surgery in the past. However she refused. 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 At this time patient be discharged home to continue antibiotics and visit podiatry next week. Home health for both IV antibiotics arranged. Patient is a high risk fall risk and there is obviously a concern for bed sores/ pneumonia. However wishes to go home instead of a SNF for monitoring/ care. 1. Chr osteomyelitis/gangrene of both feet. Cont antibiotics/ wound care. Debridement: ~lt foot TMA, rt foot digital debridement ~may be next week. -No chest pain dyspnea, may proceed forward to surgery/debridement as indicated with low perioperative risk. Outpatient follow-up podiatry 2. Failure to thrive; dc home with home health/ antibiotics/ picc care. can visit podiatry next week. 3. Type 2 diabetes 4. Nonadherence refused surgery in the past 5. CKD with acute renal failure, stable improved 6. Anemia stable observe 7. History of stroke 8. Hypertension 9. Urinary retention neurogenic bladder?/Autonomic dysfunction? 10. Adjustment disorder cute stress disorder, appreciate behavioral health assistance Subjective: 07/12 events noted no chest pain dyspnea fever. : No events 07/14: No events. Not much pain. Tearful but prepared for surgery and possible limb loss. 07/15 no distress. No fever dyspnea. Home tomorrow. 07/16: Home vs SNF TBD 07/17: No events O: Vss Physical exam No pallor Regular Clear Benign Both feet c/d/i Home Meds Active Scripts Sodium Hypochlorite (Di-Dak-Anais) 473 Ml Solution, 1 APPLIC TP BID for 10 Days, #1 1 Refill Prov:DANNY ARCHULETA MD 07/15/18 Lanolin/Mineral Oil (Thera-Derm Lotion) 236 Ml Lotion, 1 APPLIC TOP BID for 14 Days, #14 1 Refill Prov:DANNY ARCHULETA MD 07/15/18 Gentamicin Sulfate* (Gentamicin Sulfate* Oint) 0.1% - 30 Gm Oint..gm., 1 APPLIC TOP BID for 14 Days, #30 1 Refill Prov:DANNY ARCHULETA MD 07/15/18 Collagenase* (Santyl*) 30 Gm Oint..gm., 1 APPLIC TOP BID for 10 Days, #20 2 Refills Prov:DANNY ARCHULETA MD 07/15/18 Ascorbic Acid (Vitamin C) 250 Mg Tab, 250 MG PO DAILY for 30 Days, #14 TAB Prov:DANNY ARCHULETA MD 07/15/18 Zinc Sulfate* (Zinc Sulfate*) 220 Mg Cap, 220 MG PO DAILY for 14 Days, #30 CAP Prov:DANNY ARCHULETA MD 07/15/18 Citric Acid/Sodium Citrate* (Bicitra* (PEDIATRIC)) 1 Meq/Ml Soln, 30 ML PO BID for 14 Days, #30 1 Refill Prov:DANNY ARCHULETA MD 07/15/18 Acetaminophen* (Tylenol*) 325 Mg Tablet, 650 MG PO Q6H PRN for .PAIN 1-3 OR TEMP for 14 Days, TAB Prov:DANNY ARCHULETA MD 07/15/18 Carvedilol* (Carvedilol*) 25 Mg Tablet, 25 MG PO BID for 10 Days, #20 TAB Prov:DANNY ARCHULETA MD 07/15/18 Nifedipine* (Nifedipine ER*) 60 Mg Tablet.sa, 60 MG PO DAILY, #60 TAB.SA Prov:ANEL COTA 02/09/18 Bethanechol Chloride* (Bethanechol Chloride*) 10 Mg Tablet, 10 MG PO TID, #90 TAB 1 Refill Prov:ANEL COTA 02/09/18 Aspirin* (Aspirin* EC) 81 Mg Tablet.dr, 81 MG PO DAILY for 90 Days, #90 TAB 5 Refills Prov:BRET PARIKH MD 02/05/18 Metformin Hcl (Glucophage) 500 Mg Tablet, 1000 MG NGT BID WITH MEALS for 60 Days, #120 TAB 5 Refills Prov:BRET PARIKH MD 02/05/18 Atorvastatin* (Atorvastatin*) 40 Mg Tablet, 40 MG PO HS for 90 Days, #90 TAB 5 Refills Prov:BRET PARIKH MD 02/05/18 Discontinued Reported Medications Doxycycline Hyclate* (Doxycycline Hyclate*) 100 Mg Tablet.dr, 100 MG PO BID for 14 Days, TAB PER PT'S ON TX FOR THE PAST 7 DAYS 03-24-18 04/10/18 Discontinued Scripts Cephalexin* (Keflex*) 500 Mg Capsule, 500 MG PO TID for 7 Days, CAP Prov:GISELA HYMAN MD 04/10/18 Carvedilol* (Carvedilol*) 12.5 Mg Tablet, 12.5 MG PO BID for 90 Days, #45 TAB 5 Refills Prov:BRET PARIKH MD 02/05/18 Follow-up Plan appt Primary & Podiatry next Week. Dialysis as before. Primary Care Provider Not On Staff Doctor Time spent on discharge: > 30 minutes Pending Labs Laboratory Tests Test 07/15/18 18:00 07/15/18 21:19 07/16/18 08:28 07/16/18 12:37 Bedside 168 125 96 132 Glucose mg/dL (70-220) mg/dL (70-220) mg/dL (70-220) mg/dL (70-220) Test 07/16/18 17:18 Bedside 152 Glucose mg/dL (70-220) DANNY ARCHULETA MD Jul 16, 2018 17:52
[2018-07-16 19:32] VITALS: BP 113/67; PULSE 77; RESP 18
[2018-07-16] MEDS ORDERED: NA PHOSPHATE/BIPHOS 133 ML ENEMA PR ONE (21:30)
[2018-07-16] MEDS: ATORVASTATIN 40 MG TAB PO SCH (21:37)
[2018-07-16] MEDS: INSULIN GLARGINE [LANTus] (100 UNITS/ML) SYG SC SCH (21:40)
[2018-07-17] MEDS: ACCU-CHEK XX SCH (02:00)
[2018-07-17 02:42] VITALS: BP 115/72; PULSE 72; RESP 18
[2018-07-17] MEDS: TIGECYCLINE 50 MG in SOD CHLORIDE 0.9% 100 ML IVPB SCH (05:22)
[2018-07-17] MEDS: DAKINS 0.0125%(1/40) 473 ML SOLUTION TP SCH ×2 (05:26→08:31)
[2018-07-17] MEDS: COLLAGENASE 30 GM TUBE TOP SCH ×2 (05:26→08:31)
[2018-07-17] MEDS: GENTAMICIN 0.1% 15 GM OINT TOP SCH ×2 (05:27→08:31)
[2018-07-17 07:14] VITALS: BP 111/64; PULSE 70; RESP 18
[2018-07-17] MEDS: INSULIN ASPART [NOVOLOG] 3 ML PEN SC SCH (07:50)
[2018-07-17] MEDS: CEFEPIME 1GM/50 ML (PMX) 50 ML IVPB SCH (08:25)
[2018-07-17] MEDS: ZINC SULFATE 220 MG CAP PO SCH (08:28)
[2018-07-17] MEDS: ASCORBIC ACID 250 MG TAB PO SCH (08:29)
[2018-07-17] MEDS: ASPIRIN 81 MG TAB PO SCH (08:29)
[2018-07-17] MEDS: CITRIC ACID/NA CITRATE 30 ML CUP PO SCH (08:29)
[2018-07-17] MEDS: NIFEdipine (XL) 60 MG TAB PO SCH (08:29)
[2018-07-17] MEDS: MINERAL OIL 240 ML LOT TOP SCH (08:30)
--- NOTE | 2018-07-17 09:20 | PN ---
DATE: 07/17/2018 SUBJECTIVE: The patient is stable, no events overnight. No fevers, chills, nausea, vomiting. OBJECTIVE: VITAL SIGNS: Blood pressure is 111/64, pulse 70, respiration 18, temperature 97.5. HEENT: Head is normocephalic. NECK: Supple. HEART: Regular rate. LUNGS: Show diminished breath sounds at the base. ABDOMEN: Soft, nontender to palpation, no rebound or guarding. EXTREMITIES: Negative for clubbing, cyanosis. Positive wounds with dressing clean, dry, intact. DERMATOLOGIC: No rashes. MUSCULOSKELETAL: No joint effusion. NEUROLOGIC: No change in exam. MEDICATIONS: Reviewed. LABORATORY DATA: Has been reviewed. ASSESSMENT AND PLAN: 1. Nonoliguric acute kidney injury on top of chronic kidney disease stage III. Etiology of MOR is s econdary to hemodynamics. Renal function has been fluctuating, but overall improving stabilizing gregorio und a creatinine 1.2 mg/dL. At this point, continue current treatment plan, supportive care, renally dose all meds. 2. Anemia. Monitor hemoglobin and hematocrit levels. 3. Mineral bone disorder, monitor calcium and phosphorus levels. 4. Metabolic acidosis. Continue Bicitra. 5. Hypertension. Continue current blood pressure regimen. 6. Bilateral gangrenous lower extremity wounds with osteomyelitis. Continue current antibiotic ther apy. Continue wound care. 7. Diabetes. Continue current insulin regimen. 8. History of cerebrovascular accident. Dictated By: PARI TRAN DO NR/NTS Conf#: [id number] DID#: [id number] CC: TALI ROBLES MD; HAKAN HARMON DPGonzalo; DANNY ARCHULETA MD;*EndCC*
--- NOTE | 2018-07-17 10:54 | CONS ---
Assessment/Plan Assessment/Plan Hospital Course (Demo Recall) ID PROGRESS NOTE CURRENT ABX: DAY # Tygacil, cefepime 24H INTERVAL SUMMARY * Rounded earlier prior to DC == Patient eager for DC, feeling better * HOme with HH IV ABX via ambulance pickling solution maker * Microbiology: Wound culture grew multidrug-resistant Acinetobacter, enterococcus, E. coli PHYSICAL EXAMINATION: GENERAL: VSS, NAD HEENT: AT, NC, anicteric, NECK: Supple, CHEST:Equal chest rise bilaterally, without dyspnea on observation HEART: Pulse RRR ABDOMEN: EXTREMITIES: Warm, dry ==> BLEXT DSG c/d/i SKIN: No rash, no diaphoresis ID ASSESSMENT 48 yo F admit with: 1. Bilateral lower extremities gangrene/Osteomyelitis 2. Chronic kidney disease, history of hemodialysis 3. Diabetes 4. RUE PICC (-)MRSA Nares ABX ALLERGIES: KNDA INVASIVES: PIV CURRENT ABX: DAY # Tygacil + Cefepime ID RECOMMENDATIONS/PLAN: 1. DC IN PROCESS == ambulance here to pickling solution maker patient who expresses agreement w/DC plan 2. Plan: Remains stable, continue on current abx for 6+ weeks unless infected bone being removed removed, f/u podiatry rec-s . Consultation Date/Type/Reason Admit Date/Time Jul 07, 2018 at 12:55 Initial Consult Date Date/Time of Note DATE: 07/17/18 TIME: 10:53 Exam/Review of Systems Exam Vitals Vital Signs Date Temp Pulse Resp B/P (MAP) Pulse Ox O2 O2 Flow FiO2 Time Delivery Rate 07/17/18 97.5 70 18 111/64 97 07:14 (80) 07/16/18 Room Air 02:30 Intake and Output 07/16/18 07/16/18 07/17/18 1515:00 23:00 07:00 IntakeIntake Total 550 ml 150 ml 100 ml OutputOutput Total 1 ml BalanceBalance 550 ml 150 ml 99 ml Results Result Diagram: 07/15/1844507/15/18445 Results 24hrs Laboratory Tests Test 07/16/18 12:37 07/16/18 17:18 07/16/18 21:35 07/17/18 08:34 Bedside Glucose 132 152 155 111 Medications Medication Current Medications Atorvastatin Calcium (Lipitor) 40 mg HS PO Last administered on 07/16/18at 21:37; Admin Dose 40 MG; Start 07/07/18 at 21:00 IV Flush (NS 3 ml) 3 ml PER PROTOCOL IV ; Start 07/07/18 at 14:30 Ondansetron HCl (Zofran Inj) 4 mg Q6H PRN IV NAUSEA/VOMITING; Start 07/07/18 at 14:30 Acetaminophen (Tylenol Tab) 650 mg Q6H PRN PO .PAIN 1-3 OR TEMP Last administered on 07/16/18at 17:12; Admin Dose 650 MG; Start 07/07/18 at 14:30 Acetaminophen/ Hydrocodone Bitart ([place] (5/325)) 1 tab Q6H PRN PO .MOD PAIN 4- 6; Start 07/07/18 at 14:30 Docusate Sodium (Colace) 100 mg Q12H PRN PO .CONSTIPATION Last administered on 07/10/18at 09:02; Admin Dose 100 MG; Start 07/07/18 at 14:30 Diagnostic Test (Pha) (Accu-Chek) 1 ea 02 XX Last administered on 07/08/18at 02:05; Admin Dose 1 EA; Start 07/08/18 at 02:00 Insulin Glargine (Lantus) 9 units DAILY@2000 SC Last administered on 07/16/18at 21:40; Admin Dose 9 UNITS; Start 07/07/18 at 20:00 Insulin Aspart (Novolog Insulin Pen) NOVOLOG *MILD* ALGORITHM WITH MEALS BEDTIME SC Last administered on 07/16/18at 17:30; Admin Dose 1 UNIT; Start 07/07/18 at 17:55 Miscellaneous Information 1 ea NOTE XX ; Start 07/07/18 at 15:00 Glucose (Glutose) 15 gm Q15M PRN PO DECREASED GLUCOSE; Start 07/07/18 at 15:00 Glucose (Glutose) 22.5 gm Q15M PRN PO DECREASED GLUCOSE; Start 07/07/18 at 15:00 Dextrose (D50w Syringe) 25 ml Q15M PRN IV DECREASED GLUCOSE; Start 07/07/18 at 15:00 Dextrose (D50w Syringe) 50 ml Q15M PRN IV DECREASED GLUCOSE; Start 07/07/18 at 15:00 Glucagon (Glucagen) 1 mg Q15M PRN IM DECREASED GLUCOSE; Start 07/07/18 at 15:00 Glucose (Glutose) 15 gm Q15M PRN BUCCAL DECREASED GLUCOSE; Start 07/07/18 at 15:00 Zinc Sulfate (Zinc Sulfate) 220 mg DAILY PO Last administered on 07/17/18 08:28; Admin Dose 220 MG; Start 07/08/18 at 09:00 Mineral Oil (Eucerin Lotion) 1 applic BID TOP Last administered on 07/17/18 08:30; Admin Dose 1 APPLIC; Start 07/07/18 at 21:00 IV Flush (NS 10 ml) 10 ml PRN PRN IV FLUSH LINE; Start 07/07/18 at 17:30 Sodium Hypochlorite (Dakins Diluted ()) 1 applic BID TP Last administered on 07/17/18 08:31; Admin Dose 1 APPLIC; Start 07/07/18 at 23:00 Cefepime HCl 50 ml @ 100 mls/hr Q12 IVPB Last administered on 07/17/18 08:25; Admin Dose 100 MLS/HR; Start 07/08/18 at 21:00 Tigecycline 50 mg/ Sodium Chloride 100 ml @ 200 mls/hr Q12H IVPB Last ad ministered on 07/17/18 05:22; Admin Dose 200 MLS/HR; Start 07/09/18 at 06:00 Aspirin (Aspirin) 81 mg DAILY PO Last administered on 07/17/18 08:29; Admin Dose 81 MG; Start 07/09/18 at 12:00 Alteplase, Recombinant (Cathflo (Activase)) 2 mg MAY REPEAT X1 PRN CATHETER IF CATHETER REMAINS OCCULUDED Last administered on 07/12/18 06:56; Admin Dose 2 MG; Start 07/12/18 at 05:30 Citric Acid/ Sodium Citrate (Bicitra) 30 ml BID PO Last administered on 07/17/18 08:29; Admin Dose 30 ML; Start 07/12/18 at 21:00 Gentamicin Sulfate (Gentamicin 0.1% Oint) 1 applic BID TOP Last administered on 07/17/18 08:31; Admin Dose 1 APPLIC; Start 07/13/18 at 15:30 Ascorbic Acid (Vitamin C) 250 mg DAILY PO Last administered on 07/17/18 08:29; Admin Dose 250 MG; Start 07/14/18 at 09:00 Carvedilol (Coreg) 25 mg BID PO Last administered on 07/17/18at 08:28; Admin Dose 25 MG; Start 07/14/18 at 09:00 Nifedipine (Procardia Xl) 60 mg DAILY PO Last administered on 07/17/18at 08:29; Admin Dose 60 MG; Start 07/14/18 at 09:00 Magnesium Hydroxide (Milk Of Mag) 30 ml BID PRN PO CONSTIPATION; Start 07/15/18 at 05:00 Collagenase (Santyl) 1 applic BID TOP Last administered on 07/17/18at 08:31; Admin Dose 1 APPLIC; Start 07/16/18 at 15:45 DONALD FITZGERALD FUNDRAISING MANAGER Jul 17, 2018 10:54
--- NOTE | 2018-07-17 16:56 | DS ---
Date/Time of Note Date/Time of Note DATE: 07/17/18 TIME: 16:55 Discharge Summary Admission/Discharge Info Admit Date/Time Jul 07, 2018 at 12:55 Discharge Date/Time Jul 17, 2018 at 10:25 Patient Condition: Fair Hx of Present Illness 48-year-old female with bilateral lower extremity osteomyelitis gangrene admitted for continued medical care and to discuss optionstherapy Hospital Course Ryan; [facility] Procedures Left foot MRI IMPRESSION: 1. Findings consistent with osteomyelitis of the second metatarsal head. 2. 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 3. Extensive ulceration of debridement change. There are a soft tissue air surrounding the third metatarsal consistent with gangrene. Right foot MRI IMPRESSION: 1. Bone destructive change in findings consistent with osteomyelitis of the fifth metatarsal head and proximal phalanx as well as the third proximal phalangeal head although there may have a third toe amputation - please compare with plain films. 2. Extensive soft tissue ulceration of the plantar lateral aspect of the foot. 3. Extensive medullary infarcts as described. Hx of Present Illness 48-year-old female with bilateral lower extremity osteomyelitis gangrene admitted for continued medical care and to discuss optionstherapy Hospital Course Hospitalist coverage/hospital course/ assessment and plan Unfortunately has bilateral lower extremity osteomyelitis and gangrene. Surgery vs antibiotics discussed. Was recommended to have surgery in the past. However she refused. 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 At this time patient be discharged home to continue antibiotics and visit podiatry next week. Home health for both IV antibiotics arranged. Patient is a high risk fall risk and there is obviously a concern for bed sores/ pneumonia. However wishes to go home instead of a SNF for monitoring/ care. -Addendum patient's home health IV antibiotics arranged today. Patient went home this morning. 1. Chr osteomyelitis/gangrene of both feet. Cont antibiotics/ wound care. Debridement: ~lt foot TMA, rt foot digital debridement ~may be next week. -No chest pain dyspnea, may proceed forward to surgery/debridement as indicated with low perioperative risk. Outpatient follow-up podiatry 2. Failure to thrive; dc home with home health/ antibiotics/ picc care. can visit podiatry next week. 3. Type 2 diabetes 4. Nonadherence refused surgery in the past 5. CKD with acute renal failure, stable improved 6. Anemia stable observe 7. History of stroke 8. Hypertension 9. Urinary retention neurogenic bladder?/Autonomic dysfunction? 10. Adjustment disorder cute stress disorder, appreciate behavioral health assistance Physical exam No pallor Regular Clear Benign Both feet c/d/i Home Meds Active Scripts Sodium Hypochlorite (Di-Dak-Anais) 473 Ml Solution, 1 APPLIC TP BID for 10 Days, #1 1 Refill Prov:DANNY ARCHULETA MD 07/15/18 Lanolin/Mineral Oil (Thera-Derm Lotion) 236 Ml Lotion, 1 APPLIC TOP BID for 14 Days, #14 1 Refill Prov:DANNY ARCHULETA MD 07/15/18 Gentamicin Sulfate* (Gentamicin Sulfate* Oint) 0.1% - 30 Gm Oint..gm., 1 APPLIC TOP BID for 14 Days, #30 1 Refill Prov:DANNY ARCHULETA MD 07/15/18 Collagenase* (Santyl*) 30 Gm Oint..gm., 1 APPLIC TOP BID for 10 Days, #20 2 Refills Prov:DANNY ARCHULETA MD 07/15/18 Ascorbic Acid (Vitamin C) 250 Mg Tab, 250 MG PO DAILY for 30 Days, #14 TAB Prov:DANNY ARCHULETA MD 07/15/18 Zinc Sulfate* (Zinc Sulfate*) 220 Mg Cap, 220 MG PO DAILY for 14 Days, #30 CAP Prov:DANNY ARCHULETA MD 07/15/18 Citric Acid/Sodium Citrate* (Bicitra* (PEDIATRIC)) 1 Meq/Ml Soln, 30 ML PO BID for 14 Days, #30 1 Refill Prov:DANNY ARCHULETA MD 07/15/18 Acetaminophen* (Tylenol*) 325 Mg Tablet, 650 MG PO Q6H PRN for .PAIN 1-3 OR TEMP for 14 Days, TAB Prov:DANNY ARCHULETA MD 07/15/18 Carvedilol* (Carvedilol*) 25 Mg Tablet, 25 MG PO BID for 10 Days, #20 TAB Prov:DANNY ARCHULETA MD 07/15/18 Nifedipine* (Nifedipine ER*) 60 Mg Tablet.sa, 60 MG PO DAILY, #60 TAB.SA Prov:ANEL COTA 02/09/18 Bethanechol Chloride* (Bethanechol Chloride*) 10 Mg Tablet, 10 MG PO TID, #90 TAB 1 Refill Prov:CIPRIANOJASSAbimbola 02/09/18 Aspirin* (Aspirin* EC) 81 Mg Tablet.dr, 81 MG PO DAILY for 90 Days, #90 TAB 5 Refills Prov:BRET PARIKH MD 02/05/18 Metformin Hcl (Glucophage) 500 Mg Tablet, 1000 MG NGT BID WITH MEALS for 60 Days, #120 TAB 5 Refills Prov:BRET PARIKH MD 02/05/18 Atorvastatin* (Atorvastatin*) 40 Mg Tablet, 40 MG PO HS for 90 Days, #90 TAB 5 Refills Prov:BRET PARIKH MD 02/05/18 Discontinued Reported Medications Doxycycline Hyclate* (Doxycycline Hyclate*) 100 Mg Tablet.dr, 100 MG PO BID for 14 Days, TAB PER PT'S ON TX FOR THE PAST 7 DAYS 03-24-18 04/10/18 Discontinued Scripts Cephalexin* (Keflex*) 500 Mg Capsule, 500 MG PO TID for 7 Days, CAP Prov:GISELA HYMAN MD 04/10/18 Carvedilol* (Carvedilol*) 12.5 Mg Tablet, 12.5 MG PO BID for 90 Days, #45 TAB 5 Refills Prov:BRET PARIKH MD 02/05/18 Follow-up Plan appt Primary & Podiatry next Week. Dialysis as before. Primary Care Provider Not On Staff Doctor Time spent on discharge: < 30 minutes Pending Labs Laboratory Tests Test 07/16/18 17:18 07/16/18 21:35 07/17/18 08:34 Bedside Glucose 152 mg/dL (70-220) 155 mg/dL (70-220) 111 mg/dL (70-220) DANNY ARCHULETA MD Jul 17, 2018 16:55
== END 2018-07-17 10:25 | disposition home health service (06) | DRG 638 ==
LOC: MS1 12:55
PROVIDERS: ADMIT Internal Medicine; ATTEND Internal Medicine
PROC: 02H633Z Insertion of Infusion Device into Right Atrium, Percutaneous Approach (ICD-10-PCS; principal; 2018-07-07)
PROC: 30233N1 Transfusion of Nonautologous Red Blood Cells into Peripheral Vein, Percutaneous Approach (ICD-10-PCS; 2018-07-08)
DX: E11.69 Type 2 diabetes mellitus with other specified complication (principal); E11.52 Type 2 diabetes mellitus with diabetic peripheral angiopathy with gangrene; E87.2 Acidosis; M86.672 Other chronic osteomyelitis, left ankle and foot; M86.671 Other chronic osteomyelitis, right ankle and foot; N17.9 Acute kidney failure, unspecified; E11.22 Type 2 diabetes mellitus with diabetic chronic kidney disease; N31.9 Neuromuscular dysfunction of bladder, unspecified; N18.3 Chronic kidney disease, stage 3 (moderate); R62.7 Adult failure to thrive; D63.1 Anemia in chronic kidney disease; F32.9 Major depressive disorder, single episode, unspecified; F43.20 Adjustment disorder, unspecified; E11.621 Type 2 diabetes mellitus with foot ulcer; L97.529 Non-pressure chronic ulcer of other part of left foot with unspecified severity; L97.519 Non-pressure chronic ulcer of other part of right foot with unspecified severity; R33.9 Retention of urine, unspecified; Z91.19 Patient's noncompliance with other medical treatment and regimen; Z68.21 Body mass index [BMI] 21.0-21.9, adult; Z86.73 Personal history of transient ischemic attack (TIA), and cerebral infarction without residual deficits
CPT/HCPCS: 36430; 36569; 71045; 73718; 76937; 80048; 80053; 80061; 81001; 81003; 82043; 82962; 83036; 83540; 83735; 84100; 84155; 84300; 84703; 85025; 85610; 85651; 85730; 86592; 86850; 86900; 86901; 86920; 87070; 87086; 97110; 97162; 97530; J0360; J0692; J1815; J2543; J2916; J2997; J3243; J3370; J7040; P9016

== ENCOUNTER 2018-07-21 18:07 | Inpatient (IN) | payer BC ==
[~2018-07-21] VITALS: Ht 162.6 cm; Wt 62.0 kg
[~2018-07-21 18:07] MED LIST changes: +ACET325T33 PO; +ASCO250T96 PO; +BICS PO; -CARV12.579 PO; +CARV25TA79 PO; -CEPH-443 PO; -DOXY100T20 PO; +GENT30OI2 TOP; +SAN30GM TOP; +SODI473S5 TP; +ZINC220C5 PO; +[UNRECOGNIZED DRUG - CODE] TOP
[2018-07-21] MEDS ORDERED: SODIUM CHLORIDE 0.9% 1L BAG IV* STA (18:47)
[2018-07-21] MEDS ORDERED: CEFEPIME 2GM/50 ML (PMX) 50 ML IVPB STA (18:47)
[2018-07-21] MEDS ORDERED: VANCOMYCIN 1 GM (PMX) 250 ML IVPB ONE (19:00)
[2018-07-21] MEDS ORDERED: morphine 2 MG INJ IV PRN (20:30)
[2018-07-21] MEDS ORDERED: DOCUSATE SODIUM 100 MG CAP PO PRN (20:30)
[2018-07-21] MEDS ORDERED: NACL 0.9% 3 ML SYG IV SCH (20:30)
[2018-07-21] MEDS ORDERED: BISACODYL (EC) 5 MG TAB PO PRN (20:30)
[2018-07-21] MEDS ORDERED: TIGECYCLINE 100 MG in SOD CHLORIDE 0.9% 100 ML IVPB ONE (21:30)
--- NOTE | 2018-07-21 22:46 | HP ---
Date/Time of Note Date/Time of Note DATE: 07/21/18 TIME: 22:45 Assessment/Plan VTE Prophylaxis SCD applied (from Nsg): No SCD contraindicated: other (Lateral wounds) Pharmacological prophylaxis: NA/contraindicated Pharm contraindication: surgical contra Lines/Catheters IV Catheter Type (from Nrsg): PICC Line Central line still needed: Yes (Long-term antibiotics) Assessment/Plan Hospital Course This is a 48-year female being admitted to the [facility] floor for: 1 sepsis: Secondary likely to underlying chronic osteomyelitis/gangrene of the bilateral lower extremities, dry gangrene of the left fifth digit of the hand. We will also check urinalysis and chest x-ray. Broad-spectrum antibiotics at the current time of Tygacil and cefepime. Will consult ID. Trend white blood cells and lactic acid. 2 worsening chronic gangrene of the right lower extremities with osteomyelitis: Previous wound culture showed multidrug-resistant organism, with culture positive for Acinetobacter and enterococcus species. Will initiate the patient on Tygacil, cefepime. Will consult podiatry . Patient likely will benefit from surgical amputation for which patient is agreeable at this time. I will order preop EKG, PT/INR, chest x-ray for preoperative clearance. Wound care consult. 3 dry gangrene of left hand fifth digit: Currently on antibiotics as per #1. Will obtain x-rays of the left hand. Likely will need hand surgery consultation for this which may prove difficult at this facility. Consider orthopedic surgery opinion regarding this. 4. Type 2 diabetes: Recent hemoglobin A1c 6.8. Continue patient's home medications 5. Chronic kidney disease stage III: Creatinine appears at baseline., Avoid nephrotoxic agents. Monitor renal function. Antibiotic dosing as per pharmacy. 4. Chronic normocytic anemia: Stable 5.. History of stroke: Stable no deficit at the current time will hold aspirin for possible procedure, continue carvedilol statin 6. Hypertension: Continue home medications including carvedilol statin, nifed ipine 7. History of urinary retention: We will need to confirm this with the patient. This could be autonomic dysfunction. Obtain urinalysis. 8. History of adjustment disorder/acute stress disorder: Continue to monitor 99 DVT GI prophylaxis: Mechanical and pharmacologic prophylaxis contraindicated at the current time given patient's wounds and possible surgical intervention, no GI prophylaxis indicated Further treatment strategy will be implemented as per the clinical course Result Diagram: 07/21/18 1837 07/21/18 1837 Results 24hrs Laboratory Tests Test 07/21/18 18:37 07/21/18 20:29 White Blood Count 15.2 #H Red Blood Count 3.84 L Hemoglobin 10.5 L Hematocrit 33.0 L Mean Corpuscular Volume 85.9 Mean Corpuscular Hemoglobin 27.3 L Mean Corpuscular Hemoglobin Concent 31.8 L Red Cell Distribution Width 14.6 H Platelet Count 367 Mean Platelet Volume 10.9 H Immature Granulocytes % 0.600 H Neutrophils % 69.4 Lymphocytes % 16.2 Monocytes % 6.7 Eosinophils % 6.1 Basophils % 1.0 Nucleated Red Blood Cells % 0.0 Immature Granulocytes # 0.090 H Neutrophils # 10.5 H Lymphocytes # 2.5 Monocytes # 1.0 H Eosinophils # 0.9 H Basophils # 0.2 H Nucleated Red Blood Cells # 0.0 Erythrocyte Sedimentation Rate 60 H Sodium Level 142 Potassium Level 4.4 Chloride Level 110 Carbon Dioxide Level 23 Anion Gap 9 Blood Urea Nitrogen 40 H Creatinine 1.17 H Est Glomerular Filtrat Rate mL/min 50 L Glucose Level 162 POC Venous Lactate 2.3 *H 1.8 Calcium Level 9.2 Total Bilirubin 0.3 Direct Bilirubin 0.00 Indirect Bilirubin 0.3 Aspartate Amino Transf (AST/SGOT) 28 Alanine Aminotransferase (ALT/SGPT) 23 Alkaline Phosphatase 122 H C-Reactive Protein 0.5 Total Protein 7.1 Albumin 3.0 L Globulin 4.10 H Albumin/Globulin Ratio 0.73 HPI/ROS Admit Date/Time Admit Date/Time July 21, 2018 at 20:31 Hx of Present Illness Chief complaint: Abnormal labs, feeling fatigued for the last 3 days This is a 48-year-old female who was admitted previously to [facility] with bilateral osteomyelitis of the lower extremities who presents today with abnormal labs. Patient was treated for bilateral osteomyelitis and for extensive diabetic ulcerations and tissue loss of the bilateral feet. She was recommended to have amputation performed by podiatry however patient refused this. She was treated with antibiotics and and with home health and antibiot ics. Patient was having outpatient blood work done and she was told that her white blood cells were abnormal so she was advised to come into the emergency department by her PCP. Patient at the current time denies any pain in her feet. She does state that she has noticed some discharge from her feet when they have done the wrapping changes. She is now agreeable to amputation. Of note patient also reports that she has noticed necrosis of her left pinky of her hand. Allergies: NKDA Medications: See CARSON BRAXTON Const: As per HPI Eyes : No pain discharge or redness or change in visual acuity ENT: No pain, sore throat, congestion, congestion, dysphagia or discharge Respiratory: No shortness of breath, cough, sputum, wheezing, or pleuritic pain Cardiovascular: No chest pain, palpitation, PND, or edema GI : no change in appetite, abdominal pain, nausea, vomiting, diarrhea, constipation, or change in the color his stool Genitourinary: No dysuria, hematuria, flank pain , discharge or CVA tenderness Musculoskeletal: As per HPI Skin: As per HPI Neuro: No headache, dizziness, syncope, seizure, focal weakness Endocrine: No polyuria, polydipsia, temperature intolerance Psych: No hallucination, depression, anxiety or suicidal ideation PMH/Family/Social Past Medical History 1. Chr osteomyelitis/gangrene of both feet. Cont antibiotics/ wound care. 2. Type 2 diabetes 3 CKD 4. Anemia 5.. History of stroke 6. Hypertension 7. Urinary retention neurogenic bladder?/Autonomic dysfunction? 8. Adjustment disorder cute stress disorder, appreciate behavioral health assistance 9. Kidney stones Medications Current Medications IV Flush (NS 3 ml) 3 ml PER PROTOCOL IV ; Start 07/21/18 at 20:30 Ondansetron HCl (Zofran Inj) 4 mg Q6H PRN IV NAUSEA/VOMITING; Start 07/21/18 at 20:30 Acetaminophen (Tylenol Tab) 650 mg Q6H PRN PO .PAIN 1-3 OR TEMP; Start 07/21/18 at 20:30 Morphine Sulfate (morphine) 2 mg Q4H PRN IV .SEVERE PAIN 7-10; Start 07/21/18 at 20:30 Docusate Sodium (Colace) 100 mg Q12H PRN PO .CONSTIPATION; Start 07/21/18 at 20:30 Bisacodyl (Dulcolax) 5 mg DAILY PRN PO .CONSTIPATION; Start 07/21/18 at 20:30 Coded Allergies: No Known Allergy (Unverified , 04/10/18) Past Surgical History Debridement of bilateral feet ureteral stent placement and removal Family History Significant Family History: no pertinent family hx Social History Alcohol Use: none Smoking Status: Never smoker Drug Use: none Exam/Review of Systems Vital Signs Vitals Vital Signs Date Temp Pulse Resp B/P (MAP) Pulse Ox O2 O2 Flow FiO2 Time Delivery Rate 07/21/18 98.5 94 18 143/74 100 Room Air 21:29 (97) Exam Exam General: Currently lying in bed in no acute distress HEENT: Atraumatic, normocephalic. The pupils are equal, round and reactive. Extraocular motor are intact Neck: Supple with full range of motion. No rigidity or meningismus Chest: Nontender Lungs: Clear to auscultation bilaterally no crackles rales or wheezing Heart: Normal S1-S2, Regular rhythm and rate. No murmur, S3, or S4 Abdomen: Soft , nontender, nondistended , bowel sounds are present. No guarding no rebound tenderness , No masses or organomegaly. No costovertebral temporal angle mass Extremities: Dry gangrene of the left foot metatarsals, dry gangrene of right f foot third fourth and fifth metatarsals. Bilateral plantar surface extensive diabetic wounds and tissue loss. Skin:Dry gangrene of the left foot metatarsals, dry gangrene of right f foot third fourth and fifth metatarsals. Bilateral plantar surface extensive diabetic wounds and tissue loss. Left hand: Fifth digit dry gangrene noted Neurologic: Normal mental status, speech normal, cranial nerves II through XII are intact, motor and sensory are intact, Additional Comments PROCEDURE: XR Chest. CLINICAL INDICATION: Preoperative TECHNIQUE: AP chest x-ray. COMPARISON: None. FINDINGS: A right PICC line is present with the distal tip at the distal SVC. Heart size is normal. The lungs are clear. No focal opacification is seen. There is no pleural effusion or pneumothorax. The osseous structures are unremarkable. IMPRESSION: No acute findings RPTAT:HAGL Physician Carlos Date Time Electronically viewed and signed by Physician Carlos on 07/21/2018 21:22 RL/ CC: MELISSA MORRISSEY [id number] MELISSA MORRISSEY July 21, 2018 22:46
[2018-07-21 22:58] VITALS: BP 141/72; PULSE 95; RESP 18
[2018-07-21] MEDS ORDERED: COLLAGENASE 30 GM TUBE TOP SCH (23:00)
[2018-07-21] MEDS ORDERED: COLLAGENASE 5 GM (UD JAR) TOP SCH (23:39)
--- NOTE | 2018-07-21 23:41 | ERD ---
ER Documentation Chief Complaint Chief Complaint PT SENT BY PCP sandra Interiano, FOR ABNORMAL LABS HPI 48-year-old female with a history of diabetes and hypertension recently admitted for bilateral foot gangrene status post debridement, presenting to the ER complaining of increased WBC. She had labs done today by her home health which showed a white blood cell count of 16. When she was discharged from the hospital a few days ago, her white blood cell count was 10. She denies any fevers or chills. She does endorse generalized weakness but has no other associated symptoms. She had her dressings changed by wound care today and per the pictures the showed me, the wounds do not appear infected but she does have chronic gangrene in her toes. Patient is denying any significant pain. ROS All systems reviewed and are negative except as per history of present illness. Medications Home Meds Active Scripts Sodium Hypochlorite (Di-Dak-Anais) 473 Ml Solution, 1 APPLIC TP BID for 10 Days, #1 1 Refill Prov:DANNY ARCHULETA MD 07/15/18 Lanolin/Mineral Oil (Thera-Derm Lotion) 236 Ml Lotion, 1 APPLIC TOP BID for 14 Days, #14 1 Refill Prov:DANNY ARCHULETA MD 07/15/18 Gentamicin Sulfate* (Gentamicin Sulfate* Oint) 0.1% - 30 Gm Oint..gm., 1 APPLIC TOP BID for 14 Days, #30 1 Refill Prov:DANNY ARCHULETA MD 07/15/18 Collagenase* (Santyl*) 30 Gm Oint..gm., 1 APPLIC TOP BID for 10 Days, #20 2 Refi lls Prov:DANNY ARCHULETA MD 07/15/18 Ascorbic Acid (Vitamin C) 250 Mg Tab, 250 MG PO DAILY for 30 Days, #14 TAB Prov:DANNY ARCHULETA MD 07/15/18 Zinc Sulfate* (Zinc Sulfate*) 220 Mg Cap, 220 MG PO DAILY for 14 Days, #30 CAP Prov:DANNY ARCHULETA MD 07/15/18 Citric Acid/Sodium Citrate* (Bicitra* (PEDIATRIC)) 1 Meq/Ml Soln, 30 ML PO BID for 14 Days, #30 1 Refill Prov:DANNY ARCHULETA MD 07/15/18 Acetaminophen* (Tylenol*) 325 Mg Tablet, 650 MG PO Q6H PRN for .PAIN 1-3 OR TEMP for 14 Days, TAB Prov:DANNY ARCHULETA MD 07/15/18 Carvedilol* (Carvedilol*) 25 Mg Tablet, 25 MG PO BID for 10 Days, #20 TAB Prov:DANNY ARCHULETA MD 07/15/18 Nifedipine* (Nifedipine ER*) 60 Mg Tablet.sa, 60 MG PO DAILY, #60 TAB.SA Prov:ANEL COTA 02/09/18 Bethanechol Chloride* (Bethanechol Chloride*) 10 Mg Tablet, 10 MG PO TID, #90 TA B 1 Refill Prov:ANEL COTA 02/09/18 Aspirin* (Aspirin* EC) 81 Mg Tablet.dr, 81 MG PO DAILY for 90 Days, #90 TAB 5 Refills Prov:BRET PARIKH MD 02/05/18 Metformin Hcl (Glucophage) 500 Mg Tablet, 1000 MG NGT BID WITH MEALS for 60 Days, #120 TAB 5 Refills Prov:BRET PARIKH MD 02/05/18 Atorvastatin* (Atorvastatin*) 40 Mg Tablet, 40 MG PO HS for 90 Days, #90 TAB 5 Refills Prov:BRET PARIKH MD 02/05/18 Allergies Allergies: Coded Allergies: No Known Allergy (Unverified , 04/10/18) PMhx/Soc History of Surgery: Yes (Kidney stone removal) Anesthesia Reaction: No Hx Neurological Disorder: Yes (History of stroke) Hx Respiratory Disorders: No Hx Cardiac Disorders: No Hx Psychiatric Problems: No Hx Miscellaneous Medical Probl: No Hx Alcohol Use: No Hx Substance Use: No Hx Tobacco Use: No Smoking Status: Never smoker FmHx Family History: diabetes Physical Exam Vitals Vital Signs Date Temp Pulse Resp B/P (MAP) Pulse Ox O2 O2 Flow FiO2 Time Delivery Rate 07/21/18 97 18 145/84 100 Room Air 20:30 (104) 07/21/18 98.5 100 18 141/80 100 Room Air 18:34 (100) 07/21/18 97.5 107 20 138/86 100 18:09 (103) Physical Exam Const: No acute distress Head: Atraumatic Eyes: Normal Conjunctiva ENT: Normal External Ears, Nose and Mouth. Neck: Full range of motion. No meningismus. Resp: Clear to auscultation bilaterally Cardio: Regular rate and rhythm, no murmurs Abd: Soft, non tender, non distended. Normal bowel sounds Skin: No petechiae or rashes Back: No midline or flank tenderness Ext: Bilateral feet with dressings in place, clean dry and intact. From what I see in the pictures shown to me, all of the toes on the left foot are necrotic. She has a large open wound on the plantar aspect of the foot that appears well-healing. Right foot wound as well, well-healing. No bilateral lower extremity erythema or edema. Calves are nontender. Neur: Awake and alert, no facial asymmetry, normal speech, oriented, moving all extremities spontaneously Psych: Normal Mood and Affect Result Diagram: 07/23/18 0444 07/23/18 0444 Results 24 hrs Laboratory Tests Test 07/21/18 18:37 07/21/18 20:29 White Blood Count 15.2 10^3/ul Red Blood Count 3.84 10^6/ul Hemoglobin 10.5 g/dl Hematocrit 33.0 % Mean Corpuscular Volume 85.9 fl Mean Corpuscular Hemoglobin 27.3 pg Mean Corpuscular Hemoglobin Concent 31.8 g/dl Red Cell Distribution Width 14.6 % Platelet Count 367 10^3/UL Mean Platelet Volume 10.9 fl Immature Granulocytes % 0.600 % Neutrophils % 69.4 % Lymphocytes % 16.2 % Monocytes % 6.7 % Eosinophils % 6.1 % Basophils % 1.0 % Nucleated Red Blood Cells % 0.0 /100WBC Immature Granulocytes # 0.090 10^3/ul Neutrophils # 10.5 10^3/ul Lymphocytes # 2.5 10^3/ul Monocytes # 1.0 10^3/ul Eosinophils # 0.9 10^3/ul Basophils # 0.2 10^3/ul Nucleated Red Blood Cells # 0.0 10^3/ul Erythrocyte Sedimentation Rate 60 mm/Hr Sodium Level 142 mmol/L Potassium Level 4.4 mmol/L Chloride Level 110 mmol/L Carbon Dioxide Level 23 mmol/L Anion Gap 9 Blood Urea Nitrogen 40 mg/dl Creatinine 1.17 mg/dl Est Glomerular Filtrat Rate mL/min 50 mL/min Glucose Level 162 mg/dl POC Venous Lactate 2.3 mmol/L 1.8 mmol/L Calcium Level 9.2 mg/dl Total Bilirubin 0.3 mg/dl Direct Bilirubin 0.00 mg/dl Indirect Bilirubin 0.3 mg/dl Aspartate Amino Transf (AST/SGOT) 28 IU/L Alanine Aminotransferase (ALT/SGPT) 23 IU/L Alkaline Phosphatase 122 IU/L C-Reactive Protein 0.5 mg/dl Total Protein 7.1 g/dl Albumin 3.0 g/dl Globulin 4.10 g/dl Albumin/Globulin Ratio 0.73 Current Medications Medications Dose Sig/Chuyita Start Time Status Last (Trade) Ordered Route PRN Stop Time Admin Dose Reason Admin Sodium 1,860 ml BOLUS OVER 2 07/21/18 DC 07/21/18 Chloride HOURS STAT 18:47 07/21/18 19:46 (NS) IV* 18:49 Cefepime HCl 50 ml @ ONCE STAT 07/21/18 DC 07/21/18 100 mls/hr IVPB 18:47 07/21/18 19:46 19:16 Vancomycin 250 ml @ ONCE ONCE 07/21/18 DC 07/21/18 HCl 125 mls/hr IVPB 19:00 07/21/18 20:15 21:00 IV Flush 3 ml PER 07/21/18 (NS 3 ml) PROTOCOL IV 20:30 Ondansetron 4 mg Q6H PRN 07/21/18 HCl (Zofran IV 20:30 Inj) NAUSEA/VOMITI NG 650 mg Q6H PRN 07/21/18 Acetaminophen PO .PAIN 1-3 20:30 (Tylenol OR TEMP Tab) Morphine 2 mg Q4H PRN 07/21/18 Sulfate IV .SEVERE 20:30 (morphine) PAIN 7-10 Docusate 100 mg Q12H PRN 07/21/18 Sodium PO 20:30 (Colace) .CONSTIPATION Bisacodyl 5 mg DAILY PRN 07/21/18 (Dulcolax) PO 20:30 .CONSTIPATION Procedures/MDM EMERGENT LABS AND DIAGNOSTIC STUDIES: Lab Results above were reviewed and interpreted by me. CBC: Leukocytosis, concerning for infection. Mild anemia, not worse than baseline CMP: Elevated BUN and creatinine, consistent with chronic kidney disease. No evidence of clinically significant electrolyte abnormality, acidosis, hypoglycemia, liver disease, or biliary obstruction Lactate elevated, concerning for severe sepsis versus tissue hypoperfusion Initial Nursing notes reviewed. Previous Medical Records requested via the Electronic Health Record. EMERGENCY DEPARTMENT COURSE / MEDICAL DECISION MAKING: Admit MDM: Patient is presenting with generalized weakness and leukocytosis. Her vitals were notable for tachycardia but she is afebrile and otherwise stable. Sepsis work-up was initiated given labs today showing leukocytosis and her current tachycardia. IV antibiotics and IV fluids given. I spoke with her steam engineer, who states that the patient needs source control by amputation. Patient and michelle brennan are agreeable with this plan to admit for IV antibiotics and likely surgery. Patient's infectious symptoms have not stabilized, and the patient is at risk of rapid decompensation. The patient will be admitted for careful hydration, antibiotic therapy, and infectious source control. Severe Sepsis criteria: Infectious source: Bilateral foot gangrene and osteomyelitis End organ damage indicated by: Lactate > 2.0 mmol/L Sepsis Management: Time of recognition of severe sepsis: 18:34 Within 3 hours of recognition: Blood cultures x 2 before broad-spectrum antibiotics: Yes 30 ml/kg NS bolus Completed Initial lactate 2.3 Repeat lactate pending Septic Shock Assessment: Any lactic acid > 4.0 No Persistent hypotension (SBP < 90 or 40 mmHg drop, MAP < 65) despite 30 mL/kg IV fluid bolus No Accepting Care Team Current data and ongoing care discussed. Admitting Physician: Choke Setter(s): Dr. Munoz with podiatry Outstanding Data: cultures Critical Care Time: [] minutes Treatments/Evaluations: Close monitoring and treatment of unstable vital signs, cardiorespiratory, and neurologic status, while maintaining tight balance of fluid, respiratory, and cardiac interventions. This includes the administration of emergency fluid management while maintaining close respiratory support as well as the provision of immediate and broad-spectrum antibiotic therapy, while performing a simultaneous assessment for possible sources in order to direct targeted therapy. This time includes discussing the case with the patient and the patients family.This time also includes the consideration for invasive and chemical support to prevent cardiopulmonary collapse. This time does not include all procedures stated elsewhere in this record. This time also includes reviewing old records, labs and radiological studies. This time includes examining and reexamining the patient. Additionally, this time also includes arranging care with admitting and consulting physicians. Departure Diagnosis: Primary Impression: Toe gangrene Additional Impressions: Foot osteomyelitis, right Osteomyelitis type: unspecified type Qualified Codes: M86.9 - Osteomyelitis, unspecified Foot osteomyelitis, left Osteomyelitis type: unspecified type Qualified Codes: M86.9 - Osteomyelitis, unspecified Severe sepsis Condition: Serious MARIO RICHARDSON MD July 21, 2018 23:41
[2018-07-22] MEDS: ATORVASTATIN 40 MG TAB PO SCH ×2 (00:46→21:11)
[2018-07-22 00:48] VITALS: Ht 162.6 cm; Wt 62.0 kg
[2018-07-22 02:00] VITALS: BP 158/60; PULSE 93; RESP 18
[2018-07-22] MEDS ORDERED: GLUCAGON 1 MG INJ IM PRN (04:30)
[2018-07-22] MEDS ORDERED: DEXTROSE 50% 50 ML SYRINGE IV PRN ×2 (04:30)
[2018-07-22] MEDS ORDERED: GLUCOSE GEL 15 GRAM TUBE PO PRN ×2 (04:30)
[2018-07-22] MEDS ORDERED: GLUCOSE GEL 15 GRAM TUBE BUCCAL PRN (04:30)
[2018-07-22 07:52] VITALS: BP 140/79; PULSE 79; RESP 19
[2018-07-22] MEDS: INSULIN ASPART [NOVOLOG] 3 ML PEN SC SCH ×4 (08:00→21:00)
[2018-07-22] MEDS ORDERED: GENTAMICIN 0.1% 15 GM OINT TOP SCH (09:00)
[2018-07-22] MEDS ORDERED: CITRIC ACID/NA CIT (1 MEQ/ML POSYG) PO SCH (09:00)
[2018-07-22] MEDS ORDERED: MINERAL OIL 240 ML LOT TOP SCH (09:00)
[2018-07-22] MEDS ORDERED: DAKINS 0.0125%(1/40) 473 ML SOLUTION TP SCH (09:00)
[2018-07-22] MEDS: CITRIC ACID/NA CITRATE 30 ML CUP PO SCH ×2 (09:38→21:07)
[2018-07-22] MEDS: ZINC SULFATE 220 MG CAP PO SCH (09:38)
[2018-07-22] MEDS: NIFEdipine (XL) 60 MG TAB PO SCH (09:39)
--- NOTE | 2018-07-22 10:54 | CONS ---
DATE OF ADMISSION: 07/21/2018 DATE OF CONSULTATION: TYPE OF CONSULTATION: Nephrology. REASON FOR CONSULTATION: CKD. PHYSICIAN REQUESTING CONSULT: Dr. Morrissey. HISTORY OF PRESENT ILLNESS: This is a 48-year-old female with a past medical history of acute kidney injury, diabetes, hypertension, history of sepsis, history of gangrenous toes, history of chronic ki dney disease who presented to [facility] due to lethargy, weakness. The patient wa s initially admitted to [facility] on 02/09/2018. The patient had septic shock, villatoro d a complicated hospital course and was in acute kidney injury secondary to acute tubular necrosis an d was on dialysis. The patient eventually had adequate renal recovery. Dialysis was discontinued. The patient, based on renal function stabilized around a creatinine 1.2 to 1.5 mg/dL. The patient wa s subsequently discharged and readmitted approximately 2 weeks ago due to her lower extremity wounds for possible amputation. The patient was medically managed and subsequently discharged home without amputation. The patient now returns back to [facility] with complaints of lethargy, weakness and abnormal labs. There have been no reports of any hemoptysis, hematemesis or hematochez ia. PAST MEDICAL HISTORY: As stated above, history of CKD, history of acute kidney injury, history of se ptic shock, history of gangrenous toes, history of osteomyelitis, history of diabetes, history of CVA , history of urinary retention. PAST SURGICAL HISTORY: Status post debridement of bilateral feet, status post ureteral stent placeme nt and removal. FAMILY HISTORY: No family history of kidney disease. SOCIAL HISTORY: Does not drink, smoke, do drugs. MEDICATIONS: The patient's medications have been reviewed. ALLERGIES: Have been reviewed. REVIEW OF SYSTEMS: A 14-point review of systems was conducted. Pertinent positives stated in HPI, o therwise negative. PHYSICAL EXAMINATION: VITAL SIGNS: Blood pressure is 140/69, respiration 19, pulse 79, temperature 98.0. HEENT: Head is normocephalic. NECK: Supple. HEART: Regular rate. LUNGS: Show diminished breath sounds at base. ABDOMEN: Soft, nontender to palpation without rebound or guarding. EXTREMITIES: Negative for clubbing, cyanosis. Positive gangrenous toes noted. DERMATOLOGIC: No rashes. MUSCULOSKELETAL: No joint effusions. NEUROLOGIC: Patient medications have been reviewed. LABORATORY DATA: Has been reviewed. ASSESSMENT AND PLAN: 1. Nonoliguric acute kidney injury on top of chronic kidney disease with previous baseline creatinin e around 1.2 mg/dL. Etiology of current MOR is secondary to hemodynamics. Renal function has improv ed with supportive care and IV fluids. At this point, continue current treatment plan, renally dose all meds, avoid nephrotoxins. 2. Anemia. Monitor hemoglobin and hematocrit. 3. No ulcer mass, and phosphorus levels. 4. Hypertension. Continue current blood pressure regimen. 5. Bilateral gangrenous foot ulcers, osteomyelitis. Continue medical management. Follow up with po diatry. Consider possible transmetatarsal amputation. 6. Diabetes. Continue current insulin regimen. 7. Neurogenic bladder. Continue to monitor. 8. Sepsis. Continue current antibiotic regimen. Etiology is likely due to gangrenous toes. Follow up with infectious disease. 9. History of cerebrovascular accident. Continue current treatment. Thank you, Dr. Morrissey, for this interesting consult. It will be a pleasure to follow patient with y ou throughout the hospital course. Dictated By: PARI TRAN DO NR/NTS Conf#: [id number] DID#: [id number] CC: MELISSA MORRISSEY MD;*EndCC*
[2018-07-22] MEDS: COLLAGENASE 5 GM (UD JAR) TOP SCH (11:00)
--- NOTE | 2018-07-22 13:40 | CONS ---
Assessment/Plan Assessment/Plan Hospital Course (Demo Recall) Alert, feels good, no fevers Antimicrobials: Tygacil, cefepime Microbiology: Wound culture grew multidrug-resistant Acinetobacter, enterococcus, E. coli Physical examination: Well-developed well-nourished middle-aged woman who is alert in no distress. Head atraumatic normocephalic sclera nonicteric. Neck is supple. Chest rise symmetrical, breath sounds clear. Heart: S1-S2. Abdomen s oft bowel sounds present. Extremities with bilateral lower extremities dressing clean dry and intact Assessment: 1. Bilateral lower extremities gangrene/Osteomyelitis 2. Chronic kidney disease, history of hemodialysis 3. Diabetes 4. RUE PICC Plan: Stable, continue abx, f/u podiatry rec-s ==> poss amputation DW pt Consultation Date/Type/Reason Admit Date/Time July 21, 2018 at 20:31 Initial Consult Date Type of Consult id Date/Time of Note DATE: 07/22/18 TIME: 13:39 Exam/Review of Systems Exam Vitals Vital Signs Date Temp Pulse Resp B/P (MAP) Pulse Ox O2 O2 Flow FiO2 Time Delivery Rate 07/22/18 98.0 79 19 140/79 100 07:52 (99) 07/21/18 Room Air 21:29 Intake and Output 07/21/18 07/21/18 07/22/18 1515:00 23:00 07:00 IntakeIntake Total 50 ml 100 ml BalanceBalance 50 ml 100 ml Results Result Diagram: 07/22/18 0502 07/22/18 0504 Results 24hrs Laboratory Tests Test 07/21/18 18:37 07/21/18 20:29 07/22/18 05:02 07/22/18 05:04 White Blood Count 15.2 #H 10.4 # Red Blood Count 3.84 L 3.23 L Hemoglobin 10.5 L 8.8 L Hematocrit 33.0 L 28.0 L Mean Corpuscular Volume 85.9 86.7 Mean Corpuscular 27.3 L 27.2 L Hemoglobin Mean Corpuscular 31.8 L 31.4 L Hemoglobin Concent Red Cell Distribution 14.6 H 14.9 H Width Platelet Count 367 219 # Mean Platelet Volume 10.9 H 11.5 H Immature Granulocytes % 0.600 H 0.600 H Neutrophils % 69.4 67.4 Lymphocytes % 16.2 16.7 Monocytes % 6.7 7.5 Eosinophils % 6.1 6.7 Basophils % 1.0 1.1 Nucleated Red Blood 0.0 0.0 Cells % Immature Granulocytes # 0.090 H 0.060 H Neutrophils # 10.5 H 7.0 Lymphocytes # 2.5 1.7 Monocytes # 1.0 H 0.8 Eosinophils # 0.9 H 0.7 H Basophils # 0.2 H 0.1 Nucleated Red Blood 0.0 0.0 Cells # Erythrocyte 60 H Sedimentation Rate Sodium Level 142 141 Potassium Level 4.4 4.4 Chloride Level 110 115 H Carbon Dioxide Level 23 21 Anion Gap 9 5 Blood Urea Nitrogen 40 H 34 H Creatinine 1.17 H 0.98 Est Glomerular Filtrat 50 L > 60 Rate mL/min Glucose Level 162 109 # POC Venous Lactate 2.3 *H 1.8 Calcium Level 9.2 7.9 L Total Bilirubin 0.3 0.2 Direct Bilirubin 0.00 0.00 Indirect Bilirubin 0.3 0.2 Aspartate Amino 28 28 Transf (AST/SGOT) Alanine 23 23 Aminotransferase (ALT/SG PT) Alkaline Phosphatase 122 H 90 C-Reactive Protein 0.5 Total Protein 7.1 5.5 #L Albumin 3.0 L 2.3 L Globulin 4.10 H 3.20 Albumin/Globulin Ratio 0.73 0.71 Prothrombin Time 15.7 H Prothrombin Time Ratio 1.2 INR International 1.24 Normalized Ratio Activated 25.8 Partial Thromboplast Time Hemoglobin A1c 6.4 H Magnesium Level 1.4 L Triglycerides Level 75 Cholesterol Level 65 L LDL Cholesterol, 22 Calculated HDL Cholesterol 28 L Cholesterol/HDL Ratio 2.3 Thyroid Stimulating 2.920 Hormone (TSH) Free Thyroxine Index 2.77 Thyroxine (T4) 5.5 Triiodothyronine (T3) 50.3 H Uptake Test 07/22/18 06:00 07/22/18 07:59 07/22/18 11:25 Urine Color COLORLESS Urine Clarity CLEAR Urine pH 6.0 Urine Specific [place] 1.010 Urine Ketones NEGATIVE Urine Nitrite NEGATIVE Urine Bilirubin NEGATIVE Urine Urobilinogen NEGATIVE Urine Leukocyte Esterase NEGATIVE Urine Microscopic RBC 2 Urine Microscopic WBC 0 Urine Hemoglobin NEGATIVE Urine Glucose NEGATIVE Urine Total Protein 2+ H Bedside Glucose 104 104 Medications Medication Current Medications IV Flush (NS 3 ml) 3 ml PER PROTOCOL IV ; Start 07/21/18 at 20:30 Ondansetron HCl (Zofran Inj) 4 mg Q6H PRN IV NAUSEA/VOMITING; Start 07/21/18 at 20:30 Acetaminophen (Tylenol Tab) 650 mg Q6H PRN PO .PAIN 1-3 OR TEMP; Start 07/21/18 at 20:30 Morphine Sulfate (morphine) 2 mg Q4H PRN IV .SEVERE PAIN 7-10; Start 07/21/18 at 20:30 Docusate Sodium (Colace) 100 mg Q12H PRN PO .CONSTIPATION; Start 07/21/18 at 20:30 Bisacodyl (Dulcolax) 5 mg DAILY PRN PO .CONSTIPATION; Start 07/21/18 at 20:30 Carvedilol (Coreg) 25 mg BID PO Last administered on 07/22/18at 09:39; Admin Dose 25 MG; Start 07/21/18 at 23:00 Mineral Oil (Eucerin Lotion) 1 applic BID TOP ; Start 07/22/18 at 09:00 Nifedipine (Procardia Xl) 60 mg DAILY PO Last administered on 07/22/18at 09:39; Admin Dose 60 MG; Start 07/22/18 at 09:00 Zinc Sulfate (Zinc Sulfate) 220 mg DAILY PO Last administered on 07/22/18at 09:38; Admin Dose 220 MG; Start 07/22/18 at 09:00 Atorvastatin Calcium (Lipitor) 40 mg HS PO Last administered on 07/22/18at 00:46; Admin Dose 40 MG; Start 07/21/18 at 23:21 Insulin Aspart (Novolog Insulin Pen) NOVOLOG *MILD* ALGORITHM WITH MEALS BEDTIME SC ; Start 07/22/18 at 08:00 Diagnostic Test (Pha) (Accu-Chek) 1 ea 02 XX ; Start 07/23/18 at 02:00 Miscellaneous Information 1 ea NOTE XX ; Start 07/22/18 at 04:30 Glucose (Glutose) 15 gm Q15M PRN PO DECREASED GLUCOSE; Start 07/22/18 at 04:30 Glucose (Glutose) 22.5 gm Q15M PRN PO DECREASED GLUCOSE; Start 07/22/18 at 04:30 Dextrose (D50w Syringe) 25 ml Q15M PRN IV DECREASED GLUCOSE; Start 07/22/18 at 04:30 Dextrose (D50w Syringe) 50 ml Q15M PRN IV DECREASED GLUCOSE; Start 07/22/18 at 04:30 Glucagon (Glucagen) 1 mg Q15M PRN IM DECREASED GLUCOSE; Start 07/22/18 at 04:30 Glucose (Glutose) 15 gm Q15M PRN BUCCAL DECREASED GLUCOSE; Start 07/22/18 at 04:30 Citric Acid/ Sodium Citrate (Bicitra) 30 ml BID PO Last administered on 07/22/18a t 09:38; Admin Dose 30 ML; Start 07/22/18 at 09:00 Collagenase (Santyl) 1 applic QAM TOP Last administered on 07/22/18at 11:00; Admin Dose 1 APPLIC; Start 07/22/18 at 10:30 Gentamicin Sulfate (Gentamicin 0.1% Oint) 1 applic HS TOP ; Start 07/22/18 at 21:00 SEBASTIAN BARRETO NP July 22, 2018 13:40
[2018-07-22 15:40] VITALS: BP 155/85; PULSE 80; RESP 18
--- NOTE | 2018-07-22 16:00 | RADRPT ---
Vent Rate: 74 bpm RR Interval: 812 msec MN Interval: 209 msec QRS Duration: 93 msec QT Interval: 391 msec QTC Interval: 434 msec P-R-T [place]: 37 - 44 - 58 degrees Sinus rhythm...normal P axis, V-rate 50- 99 Borderline prolonged MN interval...MN >202, V-rate 50- 90 Electronically Signed By: Venu Cuellar
--- NOTE | 2018-07-22 16:51 | PN ---
Date/Time of Note Date/Time of Note DATE: 07/22/18 TIME: 16:48 Assessment/Plan VTE Prophylaxis Risk score (from Ns)>0 risk: 4 SCD applied (from Ns): Yes Pharmacological prophylaxis: heparin Lines/Catheters IV Catheter Type (from Nrsg): PICC Line Central line still needed: Yes Urinary Cath still in place: No Assessment/Plan Hospital Course Well appearing in NAD AOx3 RRR CTAB Gangrene of index finger and toes A/P: 48 yo female with h/o critical illness for which received vasopressors and developed digital ischemia who recovered but developed gangrene of toes and finger who was referred to hospital for evaluation of leukocytosis. Found to have OM of feet - Abx per ID - surgical management per podiatry DMII: - sliding scale insulin hypertension: - continue nifedipine Result Diagram: 07/22/18 0502 07/22/18 0504 Results 24hrs Laboratory Tests Test 07/21/18 18:37 07/21/18 20:29 07/22/18 05:02 07/22/18 05:04 White Blood Count 15.2 #H 10.4 # Red Blood Count 3.84 L 3.23 L Hemoglobin 10.5 L 8.8 L Hematocrit 33.0 L 28.0 L Mean Corpuscular Volume 85.9 86.7 Mean Corpuscular 27.3 L 27.2 L Hemoglobin Mean Corpuscular 31.8 L 31.4 L Hemoglobin Concent Red Cell Distribution 14.6 H 14.9 H Width Platelet Count 367 219 # Mean Platelet Volume 10.9 H 11.5 H Immature Granulocytes % 0.600 H 0.600 H Neutrophils % 69.4 67.4 Lymphocytes % 16.2 16.7 Monocytes % 6.7 7.5 Eosinophils % 6.1 6.7 Basophils % 1.0 1.1 Nucleated Red Blood 0.0 0.0 Cells % Immature Granulocytes # 0.090 H 0.060 H Neutrophils # 10.5 H 7.0 Lymphocytes # 2.5 1.7 Monocytes # 1.0 H 0.8 Eosinophils # 0.9 H 0.7 H Basophils # 0.2 H 0.1 Nucleated Red Blood 0.0 0.0 Cells # Erythrocyte 60 H Sedimentation Rate Sodium Level 142 141 Potassium Level 4.4 4.4 Chloride Level 110 115 H Carbon Dioxide Level 23 21 Anion Gap 9 5 Blood Urea Nitrogen 40 H 34 H Creatinine 1.17 H 0.98 Est Glomerular Filtrat 50 L > 60 Rate mL/min Glucose Level 162 109 # POC Venous Lactate 2.3 *H 1.8 Calcium Level 9.2 7.9 L Total Bilirubin 0.3 0.2 Direct Bilirubin 0.00 0.00 Indirect Bilirubin 0.3 0.2 Aspartate Amino 28 28 Transf (AST/SGOT) Alanine 23 23 Aminotransferase (ALT/SG PT) Alkaline Phosphatase 122 H 90 C-Reactive Protein 0.5 Total Protein 7.1 5.5 #L Albumin 3.0 L 2.3 L Globulin 4.10 H 3.20 Albumin/Globulin Ratio 0.73 0.71 Prothrombin Time 15.7 H Prothrombin Time Ratio 1.2 INR International 1.24 Normalized Ratio Activated 25.8 Partial Thromboplast Time Hemoglobin A1c 6.4 H Magnesium Level 1.4 L Triglycerides Level 75 Cholesterol Level 65 L LDL Cholesterol, 22 Calculated HDL Cholesterol 28 L Cholesterol/HDL Ratio 2.3 Thyroid Stimulating 2.920 Hormone (TSH) Free Thyroxine Index 2.77 Thyroxine (T4) 5.5 Triiodothyronine (T3) 50.3 H Uptake Test 07/22/18 06:00 07/22/18 07:59 07/22/18 11:25 Urine Color COLORLESS Urine Clarity CLEAR Urine pH 6.0 Urine Specific [place] 1.010 Urine Ketones NEGATIVE Urine Nitrite NEGATIVE Urine Bilirubin NEGATIVE Urine Urobilinogen NEGATIVE Urine Leukocyte Esterase NEGATIVE Urine Microscopic RBC 2 Urine Microscopic WBC 0 Urine Hemoglobin NEGATIVE Urine Glucose NEGATIVE Urine Total Protein 2+ H Bedside Glucose 104 104 Subjective 24 Hr Interval Summary Free Text/Dictation feels well no complaints wants toe surgery to "fix problem" Exam/Review of Systems Exam Vitals Vital Signs Date Temp Pulse Resp B/P (MAP) Pulse Ox O2 O2 Flow FiO2 Time Delivery Rate 07/22/18 98.1 80 18 155/85 100 15:40 (108) 07/21/18 Room Air 21:29 Intake and Output 07/21/18 07/21/18 07/22/18 1515:00 23:00 07:00 IntakeIntake Total 50 ml 100 ml BalanceBalance 50 ml 100 ml Results Results 24hrs Laboratory Tests Test 07/21/18 18:37 07/21/18 20:29 07/22/18 05:02 07/22/18 05:04 White Blood Count 15.2 #H 10.4 # Red Blood Count 3.84 L 3.23 L Hemoglobin 10.5 L 8.8 L Hematocrit 33.0 L 28.0 L Mean Corpuscular Volume 85.9 86.7 Mean Corpuscular 27.3 L 27.2 L Hemoglobin Mean Corpuscular 31.8 L 31.4 L Hemoglobin Concent Red Cell Distribution 14.6 H 14.9 H Width Platelet Count 367 219 # Mean Platelet Volume 10.9 H 11.5 H Immature Granulocytes % 0.600 H 0.600 H Neutrophils % 69.4 67.4 Lymphocytes % 16.2 16.7 Monocytes % 6.7 7.5 Eosinophils % 6.1 6.7 Basophils % 1.0 1.1 Nucleated Red Blood 0.0 0.0 Cells % Immature Granulocytes # 0.090 H 0.060 H Neutrophils # 10.5 H 7.0 Lymphocytes # 2.5 1.7 Monocytes # 1.0 H 0.8 Eosinophils # 0.9 H 0.7 H Basophils # 0.2 H 0.1 Nucleated Red Blood 0.0 0.0 Cells # Erythrocyte 60 H Sedimentation Rate Sodium Level 142 141 Potassium Level 4.4 4.4 Chloride Level 110 115 H Carbon Dioxide Level 23 21 Anion Gap 9 5 Blood Urea Nitrogen 40 H 34 H Creatinine 1.17 H 0.98 Est Glomerular Filtrat 50 L > 60 Rate mL/min Glucose Level 162 109 # POC Venous Lactate 2.3 *H 1.8 Calcium Level 9.2 7.9 L Total Bilirubin 0.3 0.2 Direct Bilirubin 0.00 0.00 Indirect Bilirubin 0.3 0.2 Aspartate Amino 28 28 Transf (AST/SGOT) Alanine 23 23 Aminotransferase (ALT/SG PT) Alkaline Phosphatase 122 H 90 C-Reactive Protein 0.5 Total Protein 7.1 5.5 #L Albumin 3.0 L 2.3 L Globulin 4.10 H 3.20 Albumin/Globulin Ratio 0.73 0.71 Prothrombin Time 15.7 H Prothrombin Time Ratio 1.2 INR International 1.24 Normalized Ratio Activated 25.8 Partial Thromboplast Time Hemoglobin A1c 6.4 H Magnesium Level 1.4 L Triglycerides Level 75 Cholesterol Level 65 L LDL Cholesterol, 22 Calculated HDL Cholesterol 28 L Cholesterol/HDL Ratio 2.3 Thyroid Stimulating 2.920 Hormone (TSH) Free Thyroxine Index 2.77 Thyroxine (T4) 5.5 Triiodothyronine (T3) 50.3 H Uptake Test 07/22/18 06:00 07/22/18 07:59 07/22/18 11:25 Urine Color COLORLESS Urine Clarity CLEAR Urine pH 6.0 Urine Specific [place] 1.010 Urine Ketones NEGATIVE Urine Nitrite NEGATIVE Urine Bilirubin NEGATIVE Urine Urobilinogen NEGATIVE Urine Leukocyte Esterase NEGATIVE Urine Microscopic RBC 2 Urine Microscopic WBC 0 Urine Hemoglobin NEGATIVE Urine Glucose NEGATIVE Urine Total Protein 2+ H Bedside Glucose 104 104 Medications Medication Current Medications IV Flush (NS 3 ml) 3 ml PER PROTOCOL IV ; Start 07/21/18 at 20:30 Ondansetron HCl (Zofran Inj) 4 mg Q6H PRN IV NAUSEA/VOMITING; Start 07/21/18 at 20:30 Acetaminophen (Tylenol Tab) 650 mg Q6H PRN PO .PAIN 1-3 OR TEMP; Start 07/21/18 at 20:30 Morphine Sulfate (morphine) 2 mg Q4H PRN IV .SEVERE PAIN 7-10; Start 07/21/18 at 20:30 Docusate Sodium (Colace) 100 mg Q12H PRN PO .CONSTIPATION; Start 07/21/18 at 20:30 Bisacodyl (Dulcolax) 5 mg DAILY PRN PO .CONSTIPATION; Start 07/21/18 at 20:30 Carvedilol (Coreg) 25 mg BID PO Last administered on 07/22/18at 09:39; Admin Dose 25 MG; Start 07/21/18 at 23:00 Mineral Oil (Eucerin Lotion) 1 applic BID TOP ; Start 07/22/18 at 09:00 Nifedipine (Procardia Xl) 60 mg DAILY PO Last administered on 07/22/18at 09:39; Admin Dose 60 MG; Start 07/22/18 at 09:00 Zinc Sulfate (Zinc Sulfate) 220 mg DAILY PO Last administered on 07/22/18at 09:38; Admin Dose 220 MG; Start 07/22/18 at 09:00 Atorvastatin Calcium (Lipitor) 40 mg HS PO Last administered on 07/22/18at 00:46; Admin Dose 40 MG; Start 07/21/18 at 23:21 Insulin Aspart (Novolog Insulin Pen) NOVOLOG *MILD* ALGORITHM WITH MEALS BEDTIME SC ; Start 07/22/18 at 08:00 Diagnostic Test (Pha) (Accu-Chek) 1 ea 02 XX ; Start 07/23/18 at 02:00 Miscellaneous Information 1 ea NOTE XX ; Start 07/22/18 at 04:30 Glucose (Glutose) 15 gm Q15M PRN PO DECREASED GLUCOSE; Start 07/22/18 at 04:30 Glucose (Glutose) 22.5 gm Q15M PRN PO DECREASED GLUCOSE; Start 07/22/18 at 04:30 Dextrose (D50w Syringe) 25 ml Q15M PRN IV DECREASED GLUCOSE; Start 07/22/18 at 04:30 Dextrose (D50w Syringe) 50 ml Q15M PRN IV DECREASED GLUCOSE; Start 07/22/18 at 04:30 Glucagon (Glucagen) 1 mg Q15M PRN IM DECREASED GLUCOSE; Start 07/22/18 at 04:30 Glucose (Glutose) 15 gm Q15M PRN BUCCAL DECREASED GLUCOSE; Start 07/22/18 at 04:30 Citric Acid/ Sodium Citrate (Bicitra) 30 ml BID PO Last administered on 07/22/18at 09:38; Admin Dose 30 ML; Start 07/22/18 at 09:00 Collagenase (Santyl) 1 applic QAM TOP Last administered on 07/22/18at 11:00; Admin Dose 1 APPLIC; Start 07/22/18 at 10:30 Gentamicin Sulfate (Gentamicin 0.1% Oint) 1 applic HS TOP ; Start 07/22/18 at 21:00 BRET PARIKH MD July 22, 2018 16:51
--- NOTE | 2018-07-22 18:10 | CONS ---
Assessment/Plan Assessment/Plan Assessment/Plan (Daily) Bilateral foot gangrene. Osteomyelitis. Diabetic ulceration with extensive tissue loss. History of stroke. Anemia. Diabetes type 2. Chronic kidney disease. PLAN: Lengthy discussion regarding surgical recommendations. Family had been adamantly refusing in the past. Currently they are considering and had multiple questions. Discussed transmetatarsal amputation with an allograft mid left foot with digit amputation on the right with allograft application, debridement of ulcerations. Discussed also wound VAC application. Appreciated ID recommendations. Also recommended daily dressing changes with topical antibiotic ointments. Nursing recommendation is given. Consultation Date/Type/Reason Admit Date/Time July 21, 2018 at 20:31 Date/Time of Note DATE: 07/22/18 TIME: 17:56 Hx of Present Illness 48 y/o F patient seen recently for dry gangrene to the digits and distal forefoot with open ulcerations, presents to the floor with signs of sepsis and bilateral foot ulceration site. It had been discussed multiple times with the patient regarding surgical intervention, but the and the patient have been delaying the surgery and wanting to wait to think about it. Patient's hus band has had unrealistic expectations regarding gangrene. ROS Negative except for HPI Past Medical History Diabetes type 2, hypertension, history of sepsis, bacteremia and has history of stroke, neurogenic bladder, urinary retention. Home Meds Active Scripts Sodium Hypochlorite (Di-Dak-Anais) 473 Ml Solution, 1 APPLIC TP BID for 10 Days, #1 1 Refill Prov:DANNY ARCHULETA MD 07/15/18 Lanolin/Mineral Oil (Thera-Derm Lotion) 236 Ml Lotion, 1 APPLIC TOP BID for 14 Days, #14 1 Refill Prov:DANNY ARCHULETA MD 07/15/18 Gentamicin Sulfate* (Gentamicin Sulfate* Oint) 0.1% - 30 Gm Oint..gm., 1 APPLIC TOP BID for 14 Days, #30 1 Refill Prov:DANNY ARCHULETA MD 07/15/18 Collagenase* (Santyl*) 30 Gm Oint..gm., 1 APPLIC TOP BID for 10 Days, #20 2 Refills Prov:DANNY ARCHULETA MD 07/15/18 Ascorbic Acid (Vitamin C) 250 Mg Tab, 250 MG PO DAILY for 30 Days, #14 TAB Prov:DANNY ARCHULETA MD 07/15/18 Zinc Sulfate* (Zinc Sulfate*) 220 Mg Cap, 220 MG PO DAILY for 14 Days, #30 CAP Prov:DANNY ARCHULETA MD 07/15/18 Citric Acid/Sodium Citrate* (Bicitra* (PEDIATRIC)) 1 Meq/Ml Soln, 30 ML PO BID for 14 Days, #30 1 Refill Prov:DANNY ARCHULETA MD 07/15/18 Acetaminophen* (Tylenol*) 325 Mg Tablet, 650 MG PO Q6H PRN for .PAIN 1-3 OR TEMP for 14 Days, TAB Prov:DANNY ARHCULETA MD 07/15/18 Carvedilol* (Carvedilol*) 25 Mg Tablet, 25 MG PO BID for 10 Days, #20 TAB Prov:DANNY ARCHULETA MD 07/15/18 Nifedipine* (Nifedipine ER*) 60 Mg Tablet.sa, 60 MG PO DAILY, #60 TAB.SA Prov:ANEL COTA 02/09/18 Bethanechol Chloride* (Bethanechol Chloride*) 10 Mg Tablet, 10 MG PO TID, #90 TAB 1 Refill Prov:ANEL COTA 02/09/18 Aspirin* (Aspirin* EC) 81 Mg Tablet.dr, 81 MG PO DAILY for 90 Days, #90 TAB 5 Refills Prov:BRET PARIKH MD 02/05/18 Metformin Hcl (Glucophage) 500 Mg Tablet, 1000 MG NGT BID WITH MEALS for 60 Days, #120 TAB 5 Refills Prov:BRET PARIKH MD 02/05/18 Atorvastatin* (Atorvastatin*) 40 Mg Tablet, 40 MG PO HS for 90 Days, #90 TAB 5 Refills Prov:BRET PARIKH MD 02/05/18 Discontinued Reported Medications Doxycycline Hyclate* (Doxycycline Hyclate*) 100 Mg Tablet.dr, 100 MG PO BID for 14 Days, TAB PER PT'S ON TX FOR THE PAST 7 DAYS 1 04/10/18 Discontinued Scripts Cephalexin* (Keflex*) 500 Mg Capsule, 500 MG PO TID for 7 Days, CAP Prov:GISELA HYMAN MD 04/10/18 Carvedilol* (Carvedilol*) 12.5 Mg Tablet, 12.5 MG PO BID for 90 Days, #45 TAB 5 Refills Prov:BRET PARIKH MD 02/05/18 Medications Current Medications IV Flush (NS 3 ml) 3 ml PER PROTOCOL IV ; Start 07/21/18 at 20:30 Ondansetron HCl (Zofran Inj) 4 mg Q6H PRN IV NAUSEA/VOMITING; Start 07/21/18 at 20:30 Acetaminophen (Tylenol Tab) 650 mg Q6H PRN PO .PAIN 1-3 OR TEMP; Start 07/21/18 at 20:30 Morphine Sulfate (morphine) 2 mg Q4H PRN IV .SEVERE PAIN 7-10; Start 07/21/18 at 20:30 Docusate Sodium (Colace) 100 mg Q12H PRN PO .CONSTIPATION; Start 07/21/18 at 20:30 Bisacodyl (Dulcolax) 5 mg DAILY PRN PO .CONSTIPATION; Start 07/21/18 at 20:30 Carvedilol (Coreg) 25 mg BID PO Last administered on 07/22/18at 09:39; Admin Dose 25 MG; Start 07/21/18 at 23:00 Mineral Oil (Eucerin Lotion) 1 applic BID TOP ; Start 07/22/18 at 09:00 Nifedipine (Procardia Xl) 60 mg DAILY PO Last administered on 07/22/18at 09:39; Admin Dose 60 MG; Start 07/22/18 at 09:00 Zinc Sulfate (Zinc Sulfate) 220 mg DAILY PO Last administered on 07/22/18at 09:38; Admin Dose 220 MG; Start 07/22/18 at 09:00 Atorvastatin Calcium (Lipitor) 40 mg HS PO Last administered on 07/22/18at 00:46; Admin Dose 40 MG; Start 07/21/18 at 23:21 Insulin Aspart (Novolog Insulin Pen) NOVOLOG *MILD* ALGORITHM WITH MEALS BEDTIME SC ; Start 07/22/18 at 08:00 Miscellaneous Information 1 ea NOTE XX ; Start 07/22/18 at 04:30 Glucose (Glutose) 15 gm Q15M PRN PO DECREASED GLUCOSE; Start 07/22/18 at 04:30 Glucose (Glutose) 22.5 gm Q15M PRN PO DECREASED GLUCOSE; Start 07/22/18 at 04:30 Dextrose (D50w Syringe) 25 ml Q15M PRN IV DECREASED GLUCOSE; Start 07/22/18 at 04:30 Dextrose (D50w Syringe) 50 ml Q15M PRN IV DECREASED GLUCOSE; Start 07/22/18 at 04:30 Glucagon (Glucagen) 1 mg Q15M PRN IM DECREASED GLUCOSE; Start 07/22/18 at 04:30 Glucose (Glutose) 15 gm Q15M PRN BUCCAL DECREASED GLUCOSE; Start 07/22/18 at 04:30 Citric Acid/ Sodium Citrate (Bicitra) 30 ml BID PO Last administered on 07/22/18at 09:38; Admin Dose 30 ML; Start 07/22/18 at 09:00 Collagenase (Santyl) 1 applic QAM TOP Last administered on 07/22/18at 11:00; Admin Dose 1 APPLIC; Start 07/22/18 at 10:30 Gentamicin Sulfate (Gentamicin 0.1% Oint) 1 applic HS TOP ; Start 07/22/18 at 21 :00 Allergies: Coded Allergies: No Known Allergy (Unverified , 04/10/18) Past Surgical History wound debridements Social History Alcohol Use: none Smoking Status: Never smoker Drug Use: none Exam/Review of Systems Exam Vitals Vital Signs Date Temp Pulse Resp B/P (MAP) Pulse Ox O2 O2 Flow FiO2 Time Delivery Rate 07/22/18 98.1 80 18 155/85 100 15:40 (108) 07/21/18 Room Air 21:29 Intake and Output 07/21/18 07/21/18 07/22/18 1515:00 23:00 07:00 IntakeIntake Total 50 ml 100 ml BalanceBalance 50 ml 100 ml Exam 2+ DP, PT, and popliteal pulse bilaterally. Slight malodor to bilateral feet. The patient with gangrenous toes to the left foot at the level of metatarsophalangeal joint and to the right 4th and fifth toes. There is an open amputation to the 3rd toe at the IPJ extensive ulceration volume plantar surface bilateral feet. Results Result Diagram: 07/22/18 0502 07/22/18 0504 Results 24hrs Laboratory Tests Test 07/21/18 18:37 07/21/18 20:29 07/22/18 05:02 07/22/18 05:04 White Blood Count 15.2 #H 10.4 # Red Blood Count 3.84 L 3.23 L Hemoglobin 10.5 L 8.8 L Hematocrit 33.0 L 28.0 L Mean Corpuscular Volume 85.9 86.7 Mean Corpuscular 27.3 L 27.2 L Hemoglobin Mean Corpuscular 31.8 L 31.4 L Hemoglobin Concent Red Cell Distribution 14.6 H 14.9 H Width Platelet Count 367 219 # Mean Platelet Volume 10.9 H 11.5 H Immature Granulocytes % 0.600 H 0.600 H Neutrophils % 69.4 67.4 Lymphocytes % 16.2 16.7 Monocytes % 6.7 7.5 Eosinophils % 6.1 6.7 Basophils % 1.0 1.1 Nucleated Red Blood 0.0 0.0 Cells % Immature Granulocytes # 0.090 H 0.060 H Neutrophils # 10.5 H 7.0 Lymphocytes # 2.5 1.7 Monocytes # 1.0 H 0.8 Eosinophils # 0.9 H 0.7 H Basophils # 0.2 H 0.1 Nucleated Red Blood 0.0 0.0 Cells # Erythrocyte 60 H Sedimentation Rate Sodium Level 142 141 Potassium Level 4.4 4.4 Chloride Level 110 115 H Carbon Dioxide Level 23 21 Anion Gap 9 5 Blood Urea Nitrogen 40 H 34 H Creatinine 1.17 H 0.98 Est Glomerular Filtrat 50 L > 60 Rate mL/min Glucose Level 162 109 # POC Venous Lactate 2.3 *H 1.8 Calcium Level 9.2 7.9 L Total Bilirubin 0.3 0.2 Direct Bilirubin 0.00 0.00 Indirect Bilirubin 0.3 0.2 Aspartate Amino 28 28 Transf (AST/SGOT) Alanine 23 23 Aminotransferase (ALT/SG PT) Alkaline Phosphatase 122 H 90 C-Reactive Protein 0.5 Total Protein 7.1 5.5 #L Albumin 3.0 L 2.3 L Globulin 4.10 H 3.20 Albumin/Globulin Ratio 0.73 0.71 Prothrombin Time 15.7 H Prothrombin Time Ratio 1.2 INR International 1.24 Normalized Ratio Activated 25.8 Partial Thromboplast Time Hemoglobin A1c 6.4 H Magnesium Level 1.4 L Triglycerides Level 75 Cholesterol Level 65 L LDL Cholesterol, 22 Calculated HDL Cholesterol 28 L Cholesterol/HDL Ratio 2.3 Thyroid Stimulating 2.920 Hormone (TSH) Free Thyroxine Index 2.77 Thyroxine (T4) 5.5 Triiodothyronine (T3) 50.3 H Uptake Test 07/22/18 06:00 07/22/18 07:59 07/22/18 11:25 07/22/18 17:29 Urine Color COLORLESS Urine Clarity CLEAR Urine pH 6.0 Urine Specific [place] 1.010 Urine Ketones NEGATIVE Urine Nitrite NEGATIVE Urine Bilirubin NEGATIVE Urine Urobilinogen NEGATIVE Urine Leukocyte Esterase NEGATIVE Urine Microscopic RBC 2 Urine Microscopic WBC 0 Urine Hemoglobin NEGATIVE Urine Glucose NEGATIVE Urine Total Protein 2+ H Bedside Glucose 104 104 97 Medications Medication Current Medications IV Flush (NS 3 ml) 3 ml PER PROTOCOL IV ; Start 07/21/18 at 20:30 Ondansetron HCl (Zofran Inj) 4 mg Q6H PRN IV NAUSEA/VOMITING; Start 07/21/18 at 20:30 Acetaminophen (Tylenol Tab) 650 mg Q6H PRN PO .PAIN 1-3 OR TEMP; Start 07/21/18 at 20:30 Morphine Sulfate (morphine) 2 mg Q4H PRN IV .SEVERE PAIN 7-10; Start 07/21/18 at 20:30 Docusate Sodium (Colace) 100 mg Q12H PRN PO .CONSTIPATION; Start 07/21/18 at 20:30 Bisacodyl (Dulcolax) 5 mg DAILY PRN PO .CONSTIPATION; Start 07/21/18 at 20:30 Carvedilol (Coreg) 25 mg BID PO Last administered on 07/22/18at 09:39; Admin Dose 25 MG; Start 07/21/18 at 23:00 Mineral Oil (Eucerin Lotion) 1 applic BID TOP ; Start 07/22/18 at 09:00 Nifedipine (Procardia Xl) 60 mg DAILY PO Last administered on 07/22/18at 09:39; Admin Dose 60 MG; Start 07/22/18 at 09:00 Zinc Sulfate (Zinc Sulfate) 220 mg DAILY PO Last administered on 07/22/18at 09:38; Admin Dose 220 MG; Start 07/22/18 at 09:00 Atorvastatin Calcium (Lipitor) 40 mg HS PO Last administered on 07/22/18at 00:46; Admin Dose 40 MG; Start 07/21/18 at 23:21 Insulin Aspart (Novolog Insulin Pen) NOVOLOG *MILD* ALGORITHM WITH MEALS BEDTIME SC ; Start 07/22/18 at 08:00 Miscellaneous Information 1 ea NOTE XX ; Start 07/22/18 at 04:30 Glucose (Glutose) 15 gm Q15M PRN PO DECREASED GLUCOSE; Start 07/22/18 at 04:30 Glucose (Glutose) 22.5 gm Q15M PRN PO DECREASED GLUCOSE; Start 07/22/18 at 04:30 Dextrose (D50w Syringe) 25 ml Q15M PRN IV DECREASED GLUCOSE; Start 07/22/18 at 04:30 Dextrose (D50w Syringe) 50 ml Q15M PRN IV DECREASED GLUCOSE; Start 07/22/18 at 04:30 Glucagon (Glucagen) 1 mg Q15M PRN IM DECREASED GLUCOSE; Start 07/22/18 at 04:30 Glucose (Glutose) 15 gm Q15M PRN BUCCAL DECREASED GLUCOSE; Start 07/22/18 at 04:30 Citric Acid/ Sodium Citrate (Bicitra) 30 ml BID PO Last administered on 07/22/18at 09:38; Admin Dose 30 ML; Start 07/22/18 at 09:00 Collagenase (Santyl) 1 applic QAM TOP Last administered on 07/22/18at 11:00; Admin Dose 1 APPLIC; Start 07/22/18 at 10:30 Gentamicin Sulfate (Gentamicin 0.1% Oint) 1 applic HS TOP ; Start 07/22/18 at 21:00 ANANT BROUSSARD DPGonzalo July 22, 2018 18:07
[2018-07-22 20:00] VITALS: BP 119/70; PULSE 73; RESP 18
[2018-07-22] MEDS ORDERED: ATORVASTATIN 40 MG TAB PO SCH (21:00)
[2018-07-22] MEDS: GENTAMICIN 0.1% 15 GM OINT TOP SCH (21:17)
[2018-07-22] MEDS ORDERED: EUCERIN 113 GM CR TOP SCH (22:00)
[2018-07-22] MEDS: EUCERIN 113 GM CR TOP SCH (22:23)
[2018-07-23 02:00] VITALS: BP 111/67; PULSE 76; RESP 18
[2018-07-23] MEDS ORDERED: ACCU-CHEK XX SCH (02:00)
[2018-07-23 07:38] VITALS: BP 123/73; PULSE 66; RESP 18
[2018-07-23] MEDS: ZINC SULFATE 220 MG CAP PO SCH (08:57)
[2018-07-23] MEDS: NIFEdipine (XL) 60 MG TAB PO SCH (08:57)
[2018-07-23] MEDS: INSULIN ASPART [NOVOLOG] 3 ML PEN SC SCH ×4 (09:00→20:59)
[2018-07-23] MEDS: EUCERIN 113 GM CR TOP SCH ×3 (09:00→21:00)
[2018-07-23] MEDS: COLLAGENASE 5 GM (UD JAR) TOP SCH ×2 (09:00→13:20)
--- NOTE | 2018-07-23 09:57 | PN ---
DATE: 07/23/2018 SUBJECTIVE: The patient is stable, no events overnight. No fevers, chills, nausea, or vomiting. OBJECTIVE: VITAL SIGNS: Blood pressure is 123/73, respirations 18, pulse 66, temperature 98.0. HEENT: Head is normocephalic. NECK: Supple. HEART: Regular rate. LUNGS: Show diminished breath sounds at the base. ABDOMEN: Soft, nontender to palpation without rebound or guarding. EXTREMITIES: Negative for clubbing, cyanosis, no edema. The patient does have noted necrosis of low er extremity wounds with dressing clean, dry, and intact. DERMATOLOGIC: No rashes. MUSCULOSKELETAL: No joint effusion. NEUROLOGIC: No change in exam MEDICATIONS: Reviewed. LABORATORY DATA: Reviewed. ASSESSMENT AND PLAN: 1. Nonoliguric acute kidney injury with previous baseline creatinine of around 1.2 to 1.3 mg/dL. Et iology of acute kidney injury is secondary to hemodynamics. Renal function continues to fluctuate. At this point, continue current treatment plan, supportive care and renally dose all medications and avoid nephrotoxins. 2. Anemia. Monitor hemoglobin and hematocrit levels. 3. Mineral bone disorder, monitor calcium and phosphorus levels. 5. Blood pressure. Continue current blood pressure regimen. 6. Bilateral gangrenous foot ulcers, osteomyelitis. Continue medical management. Follow up with po tatyana. The patient is pending transmetatarsal amputation. 7. Diabetes. Continue current insulin regimen. 8. Neurogenic bladder. Continue to monitor. 9. Sepsis secondary to gangrenous toes. Continue to monitor. Follow up with infectious disease. C ontinue antibiotic regimen. 10. History of cerebrovascular accident. Continue medical management. 11. Chronic encephalopathy. Continue to observe. 12. Metabolic acidosis, improved. We will discontinue Bicitra. Dictated By: PARI TRAN DO NR/NTS Conf#: [id number] DID#: [id number] CC: MELISSA MORRISSEY MD; BRET PARIKH MD;*EndCC*
--- NOTE | 2018-07-23 13:06 | CONS ---
Assessment/Plan Assessment/Plan Hospital Course (Demo Recall) Alert, feels good, no fevers Antimicrobials: Tygacil, cefepime Microbiology: Wound culture grew multidrug-resistant Acinetobacter, enterococcus, E. coli Physical examination: Well-developed well-nourished middle-aged woman who is alert in no distress. Head atraumatic normocephalic sclera nonicteric. Neck is supple. Chest rise symmetrical, breath sounds clear. Heart: S1-S2. Abdomen s oft bowel sounds present. Extremities with bilateral lower extremities dressing clean dry and intact Assessment: 1. Bilateral lower extremities gangrene/Osteomyelitis 2. Chronic kidney disease, history of hemodialysis 3. Diabetes 4. RUE PICC Plan: Stable, pending vascular evaluation, continue abx DW pt Consultation Date/Type/Reason Admit Date/Time July 21, 2018 at 20:31 Initial Consult Date Type of Consult id Date/Time of Note DATE: 07/23/18 TIME: 13:05 Exam/Review of Systems Exam Vitals Vital Signs Date Temp Pulse Resp B/P (MAP) Pulse Ox O2 O2 Flow FiO2 Time Delivery Rate 07/23/18 98.0 66 18 123/73 97 Room Air 07:38 (90) Intake and Output 07/22/18 07/22/18 07/23/18 1515:00 23:00 07:00 IntakeIntake Total 980 ml 780 ml OutputOutput Total 250 ml BalanceBalance 980 ml 530 ml Results Result Diagram: 07/23/18 0444 07/23/18 0444 Results 24hrs Laboratory Tests Test 07/22/18 17:29 07/22/18 21:07 07/23/18 04:44 07/23/18 08:51 Bedside Glucose 97 106 189 White Blood Count 9.2 Red Blood Count 3.59 L Hemoglobin 9.7 L Hematocrit 30.7 L Mean Corpuscular Volume 85.5 Mean Corpuscular 27.0 L Hemoglobin Mean Corpuscular 31.6 L Hemoglobin Concent Red Cell Distribution 14.6 H Width Platelet Count 309 # Mean Platelet Volume 11.3 H Immature Granulocytes % 0.700 H Neutrophils % 60.6 Lymphocytes % 23.2 Monocytes % 8.4 Eosinophils % 6.2 Basophils % 0.9 Nucleated Red Blood 0.0 Cells % Immature Granulocytes # 0.060 H Neutrophils # 5.6 Lymphocytes # 2.1 Monocytes # 0.8 Eosinophils # 0.6 H Basophils # 0.1 Nucleated Red Blood 0.0 Cells # Sodium Level 143 Potassium Level 3.6 Chloride Level 109 Carbon Dioxide Level 25 Anion Gap 9 Blood Urea Nitrogen 41 H Creatinine 1.53 H Est Glomerular Filtrat 37 L Rate mL/min Glucose Level 180 Calcium Level 8.5 Total Bilirubin 0.1 L Direct Bilirubin 0.00 Indirect Bilirubin 0.1 Aspartate Amino 25 Transf (AST/SGOT) Alanine 27 Aminotransferase (ALT/SG PT) Alkaline Phosphatase 114 Total Protein 6.2 Albumin 2.5 L Globulin 3.70 H Albumin/Globulin Ratio 0.67 Medications Medication Current Medications IV Flush (NS 3 ml) 3 ml PER PROTOCOL IV ; Start 07/21/18 at 20:30 Ondansetron HCl (Zofran Inj) 4 mg Q6H PRN IV NAUSEA/VOMITING; Start 07/21/18 at 20:30 Acetaminophen (Tylenol Tab) 650 mg Q6H PRN PO .PAIN 1-3 OR TEMP; Start 07/21/18 at 20:30 Morphine Sulfate (morphine) 2 mg Q4H PRN IV .SEVERE PAIN 7-10; Start 07/21/18 at 20:30 Docusate Sodium (Colace) 100 mg Q12H PRN PO .CONSTIPATION; Start 07/21/18 at 20:30 Bisacodyl (Dulcolax) 5 mg DAILY PRN PO .CONSTIPATION; Start 07/21/18 at 20:30 Carvedilol (Coreg) 25 mg BID PO Last administered on 07/23/18at 08:58; Admin Dose 25 MG; Start 07/21/18 at 23:00 Nifedipine (Procardia Xl) 60 mg DAILY PO Last administered on 07/23/18at 08:57; Admin Dose 60 MG; Start 07/22/18 at 09:00 Zinc Sulfate (Zinc Sulfate) 220 mg DAILY PO Last administered on 07/23/18 08:57; Admin Dose 220 MG; Start 07/22/18 at 09:00 Atorvastatin Calcium (Lipitor) 40 mg HS PO Last administered on 07/22/18at 21:11; Admin Dose 40 MG; Start 07/21/18 at 23:21 Insulin Aspart (Novolog Insulin Pen) NOVOLOG *MILD* ALGORITHM WITH MEALS BE DTIME SC Last administered on 07/23/18at 09:00; Admin Dose 2 UNIT; Start 07/22/18 at 08:00 Miscellaneous Information 1 ea NOTE XX ; Start 07/22/18 at 04:30 Glucose (Glutose) 15 gm Q15M PRN PO DECREASED GLUCOSE; Start 07/22/18 at 04:30 Glucose (Glutose) 22.5 gm Q15M PRN PO DECREASED GLUCOSE; Start 07/22/18 at 04:30 Dextrose (D50w Syringe) 25 ml Q15M PRN IV DECREASED GLUCOSE; Start 07/22/18 at 04:30 Dextrose (D50w Syringe) 50 ml Q15M PRN IV DECREASED GLUCOSE; Start 07/22/18 at 04:30 Glucagon (Glucagen) 1 mg Q15M PRN IM DECREASED GLUCOSE; Start 07/22/18 at 04:30 Glucose (Glutose) 15 gm Q15M PRN BUCCAL DECREASED GLUCOSE; Start 07/22/18 at 04:30 Collagenase (Santyl) 1 applic QAM TOP Last administered on 07/22/18at 11:00; Admin Dose 1 APPLIC; Start 07/22/18 at 10:30 Gentamicin Sulfate (Gentamicin 0.1% Oint) 1 applic HS TOP Last administered on 07/22/18at 21:17; Admin Dose 1 APPLIC; Start 07/22/18 at 21:00 Multi-Ingredient Ointment (Eucerin Cream) 1 applic BID TOP Last administered on 07/22/18at 22:23; Admin Dose 1 APPLIC; Start 07/22/18 at 22:00 SEBASTIAN BARRETO NP July 23, 2018 13:06
[2018-07-23 13:52] VITALS: BP 147/80; PULSE 81; RESP 18
[2018-07-23] MEDS: DAKINS 0.0125%(1/40) 473 ML SOLUTION TP SCH ×2 (14:25→21:00)
--- NOTE | 2018-07-23 16:29 | PN ---
Date/Time of Note Date/Time of Note DATE: 07/23/18 TIME: 16:17 Assessment/Plan VTE Prophylaxis Risk score (from Ns)>0 risk: 4 SCD applied (from Ns): Yes Pharmacological prophylaxis: heparin Lines/Catheters IV Catheter Type (from Nrsg): PICC Line Central line still needed: Yes Urinary Cath still in place: No Assessment/Plan Hospital Course Well appearing in NAD AOx3 RRR CTAB Gangrene of index finger and toes A/P: 48 yo female with h/o critical illness for which received vasopressors and developed digital ischemia who recovered but developed gangrene of toes and finger who was referred to hospital for evaluation of leukocytosis. Found to have OM of feet - Abx per ID - surgical management per podiatry DMII: - sliding scale insulin hypertension: - continue nifedipine, coreg Result Diagram: 07/23/18 0444 07/23/18 0444 Results 24hrs Laboratory Tests Test 07/22/18 17:29 07/22/18 21:07 07/23/18 04:44 07/23/18 08:51 Bedside Glucose 97 106 189 White Blood Count 9.2 Red Blood Count 3.59 L Hemoglobin 9.7 L Hematocrit 30.7 L Mean Corpuscular Volume 85.5 Mean Corpuscular 27.0 L Hemoglobin Mean Corpuscular 31.6 L Hemoglobin Concent Red Cell Distribution 14.6 H Width Platelet Count 309 # Mean Platelet Volume 11.3 H Immature Granulocytes % 0.700 H Neutrophils % 60.6 Lymphocytes % 23.2 Monocytes % 8.4 Eosinophils % 6.2 Basophils % 0.9 Nucleated Red Blood 0.0 Cells % Immature Granulocytes # 0.060 H Neutrophils # 5.6 Lymphocytes # 2.1 Monocytes # 0.8 Eosinophils # 0.6 H Basophils # 0.1 Nucleated Red Blood 0.0 Cells # Sodium Level 143 Potassium Level 3.6 Chloride Level 109 Carbon Dioxide Level 25 Anion Gap 9 Blood Urea Nitrogen 41 H Creatinine 1.53 H Est Glomerular Filtrat 37 L Rate mL/min Glucose Level 180 Calcium Level 8.5 Total Bilirubin 0.1 L Direct Bilirubin 0.00 Indirect Bilirubin 0.1 Aspartate Amino 25 Transf (AST/SGOT) Alanine 27 Aminotransferase (ALT/SG PT) Alkaline Phosphatase 114 Total Protein 6.2 Albumin 2.5 L Globulin 3.70 H Albumin/Globulin Ratio 0.67 Test 07/23/18 13:18 Bedside Glucose 170 Subjective 24 Hr Interval Summary Free Text/Dictation No change to clinical status Awaiting vascular evaluation Exam/Review of Systems Exam Vitals Vital Signs Date Temp Pulse Resp B/P (MAP) Pulse Ox O2 O2 Flow FiO2 Time Delivery Rate 07/23/18 98.5 81 18 147/80 98 Room Air 13:52 (102) Intake and Output 07/22/18 07/22/18 07/23/18 1414:59 22:59 06:59 IntakeIntake Total 980 ml 780 ml OutputOutput Total 250 ml BalanceBalance 980 ml 530 ml Results Results 24hrs Laboratory Tests Test 07/22/18 17:29 07/22/18 21:07 07/23/18 04:44 07/23/18 08:51 Bedside Glucose 97 106 189 White Blood Count 9.2 Red Blood Count 3.59 L Hemoglobin 9.7 L Hematocrit 30.7 L Mean Corpuscular Volume 85.5 Mean Corpuscular 27.0 L Hemoglobin Mean Corpuscular 31.6 L Hemoglobin Concent Red Cell Distribution 14.6 H Width Platelet Count 309 # Mean Platelet Volume 11.3 H Immature Granulocytes % 0.700 H Neutrophils % 60.6 Lymphocytes % 23.2 Monocytes % 8.4 Eosinophils % 6.2 Basophils % 0.9 Nucleated Red Blood 0.0 Cells % Immature Granulocytes # 0.060 H Neutrophils # 5.6 Lymphocytes # 2.1 Monocytes # 0.8 Eosinophils # 0.6 H Basophils # 0.1 Nucleated Red Blood 0.0 Cells # Sodium Level 143 Potassium Level 3.6 Chloride Level 109 Carbon Dioxide Level 25 Anion Gap 9 Blood Urea Nitrogen 41 H Creatinine 1.53 H Est Glomerular Filtrat 37 L Rate mL/min Glucose Level 180 Calcium Level 8.5 Total Bilirubin 0.1 L Direct Bilirubin 0.00 Indirect Bilirubin 0.1 Aspartate Amino 25 Transf (AST/SGOT) Alanine 27 Aminotransferase (ALT/SG PT) Alkaline Phosphatase 114 Total Protein 6.2 Albumin 2.5 L Globulin 3.70 H Albumin/Globulin Ratio 0.67 Test 07/23/18 13:18 Bedside Glucose 170 Medications Medication Current Medications IV Flush (NS 3 ml) 3 ml PER PROTOCOL IV ; Start 07/21/18 at 20:30 Ondansetron HCl (Zofran Inj) 4 mg Q6H PRN IV NAUSEA/VOMITING; Start 07/21/18 at 20:30 Acetaminophen (Tylenol Tab) 650 mg Q6H PRN PO .PAIN 1-3 OR TEMP; Start 07/21/18 at 20:30 Morphine Sulfate (morphine) 2 mg Q4H PRN IV .SEVERE PAIN 7-10; Start 07/21/18 at 20:30 Docusate Sodium (Colace) 100 mg Q12H PRN PO .CONSTIPATION; Start 07/21/18 at 20:30 Bisacodyl (Dulcolax) 5 mg DAILY PRN PO .CONSTIPATION; Start 07/21/18 at 20:30 Carvedilol (Coreg) 25 mg BID PO Last administered on 07/23/18at 08:58; Admin Dose 25 MG; Start 07/21/18 at 23:00 Nifedipine (Procardia Xl) 60 mg DAILY PO Last administered on 07/23/18at 08:57; Admin Dose 60 MG; Start 07/22/18 at 09:00 Zinc Sulfate (Zinc Sulfate) 220 mg DAILY PO Last administered on 07/23/18at 08:57; Admin Dose 220 MG; Start 07/22/18 at 09:00 Atorvastatin Calcium (Lipitor) 40 mg HS PO Last administered on 07/22/18at 21:11; Admin Dose 40 MG; Start 07/21/18 at 23:21 Insulin Aspart (Novolog Insulin Pen) NOVOLOG *MILD* ALGORITHM WITH MEALS BEDTIME SC Last administered on 07/23/18at 13:21; Admin Dose 1 UNIT; Start 07/22/18 at 08:00 Miscellaneous Information 1 ea NOTE XX ; Start 07/22/18 at 04:30 Glucose (Glutose) 15 gm Q15M PRN PO DECREASED GLUCOSE; Start 07/22/18 at 04:30 Glucose (Glutose) 22.5 gm Q15M PRN PO DECREASED GLUCOSE; Start 07/22/18 at 04:30 Dextrose (D50w Syringe) 25 ml Q15M PRN IV DECREASED GLUCOSE; Start 07/22/18 at 04:30 Dextrose (D50w Syringe) 50 ml Q15M PRN IV DECREASED GLUCOSE; Start 07/22/18 at 04:30 Glucagon (Glucagen) 1 mg Q15M PRN IM DECREASED GLUCOSE; Start 07/22/18 at 04:30 Glucose (Glutose) 15 gm Q15M PRN BUCCAL DECREASED GLUCOSE; Start 07/22/18 at 04:30 Collagenase (Santyl) 1 applic QAM TOP Last administered on 07/23/18 13:20; Admin Dose 1 APPLIC; Start 07/22/18 at 10:30 Gentamicin Sulfate (Gentamicin 0.1% Oint) 1 applic HS TOP Last administered on 07/22/18 21:17; Admin Dose 1 APPLIC; Start 07/22/18 at 21:00 Multi-Ingredient Ointment (Eucerin Cream) 1 applic BID TOP Last administered on 07/23/18 13:20; Admin Dose 1 APPLIC; Start 07/22/18 at 22:00 Sodium Hypochlorite (Dakins Diluted (40)) 1 applic BID TP Last administered on 07/23/18at 14:25; Admin Dose 1 APPLIC; Start 07/23/18 at 15:00 BRET PARIKH MD July 23, 2018 16:29
[2018-07-23 20:00] VITALS: BP 137/75; PULSE 83; RESP 18
[2018-07-23] MEDS: ATORVASTATIN 40 MG TAB PO SCH (20:59)
[2018-07-23] MEDS: GENTAMICIN 0.1% 15 GM OINT TOP SCH (21:00)
[2018-07-24 02:00] VITALS: BP 97/54; PULSE 85; RESP 17
[2018-07-24] MEDS: INSULIN ASPART [NOVOLOG] 3 ML PEN SC SCH ×4 (07:56→20:55)
[2018-07-24] MEDS: DAKINS 0.0125%(1/40) 473 ML SOLUTION TP SCH ×2 (08:40→20:41)
[2018-07-24] MEDS: COLLAGENASE 5 GM (UD JAR) TOP SCH (08:40)
[2018-07-24] MEDS: ZINC SULFATE 220 MG CAP PO SCH (08:40)
[2018-07-24] MEDS: NIFEdipine (XL) 60 MG TAB PO SCH (08:40)
[2018-07-24] MEDS: EUCERIN 113 GM CR TOP SCH ×2 (08:40→20:42)
[2018-07-24 08:45] VITALS: BP 116/65; PULSE 91; RESP 20
--- NOTE | 2018-07-24 11:44 | CONS ---
Consultation Date/Type/Reason Admit Date/Time July 21, 2018 at 20:31 Initial Consult Date Type of Consult SUBJECTIVE: Pt is awake, alert, no fevers. VS: stable T: 98.5 LABS: Reviewed. WBC- 11.8 Antimicrobials: Tygacil, cefepime Microbiology: Wound culture grew multidrug-resistant Acinetobacter, enterococcus, E. coli RT FOOT WOUND CX: GRAM STAIN Final POLYMORPH. LEUKOCYTE RARE GRAM POSITIVE COCCI 1+ GRAM POSITIVE RODS 1+ WOUND CULTURE Preliminary Organism 1 ACINETOBACTER BAUMANNII QUANTITY 3+ Organism 2 CORYNEBACTERIUM SPECIES QUANTITY 3+ PREVIOUSLY REPORTED MDRO. Susceptibilities previously reported, see prior culture report of same specimen site. LT FOOT WOUND CX: NATI STAIN Final POLYMORPH. LEUKOCYTE NONE SEEN GRAM NEGATIVE RODS RARE WOUND CULTURE Preliminary Organism 1 ACINETOBACTER BAUMANNII QUANTITY 3+ Organism 2 CORYNEBACTERIUM SPECIES QUANTITY 3+ CORYNEBACTERIUM SPECIES: Clinical susceptibiltiy testing standard for this organism have not been established. However, this organism has demonstrated in vitro growth inhibition to the following chemotherapeutic agents listed as susceptible. PHONED TO JAKE WOODS, NOTIFIED ARELY MURO, AND A COPY TO AT 0928 07/24/2018 BY LAUREN. Acinetobacter baumannii: Multi drug resistant organism Physical examination: GEN: Well-developed well-nourished middle-aged woman, who is alert in no distress. HENT: Head atraumatic normocephalic, sclera nonicteric. Neck is supple. PULM: Chest rise symmetrical, breath sounds clear. Heart: S1-S2. Abdomen soft bowel sounds present. Extremities with bilateral lower extremities dressing clean dry and intact Assessment: 1. Bilateral lower extremities gangrene/Osteomyelitis 2. Chronic kidney disease, history of hemodialysis 3. Diabetes 4. RUE PICC Plan: Pt is stable. Pending vascular evaluation. Continue with continue abx Date/Time of Note DATE: 07/24/18 TIME: 11:37 Exam/Review of Systems Exam Vitals Vital Signs Date Temp Pulse Resp B/P (MAP) Pulse Ox O2 O2 Flow FiO2 Time Delivery Rate 07/24/18 98.5 91 20 116/65 98 08:45 (82) 07/23/18 Room Air 13:52 Intake and Output 07/23/18 07/23/18 07/24/18 1515:00 23:00 07:00 IntakeIntake Total 940 ml 580 ml 520 ml OutputOutput Total 4 ml BalanceBalance 936 ml 580 ml 520 ml Results Result Diagram: 07/24/18 0529 07/24/18 0529 Results 24hrs Laboratory Tests Test 07/23/18 13:18 07/23/18 17:57 07/23/18 20:56 07/24/18 05:29 Bedside Glucose 170 156 178 White Blood Count 11.8 #H Red Blood Count 3.23 L Hemoglobin 9.0 L Hematocrit 27.8 L Mean Corpuscular Volume 86.1 Mean Corpuscular 27.9 L Hemoglobin Mean Corpuscular 32.4 Hemoglobin Concent Red Cell Distribution 14.6 H Width Platelet Count 222 # Mean Platelet Volume 11.3 H Immature Granulocytes % 0.700 H Neutrophils % 70.0 Lymphocytes % 16.2 Monocytes % 7.8 Eosinophils % 4.5 Basophils % 0.8 Nucleated Red Blood 0.0 Cells % Immature Granulocytes # 0.080 H Neutrophils # 8.3 H Lymphocytes # 1.9 Monocytes # 0.9 Eosinophils # 0.5 Basophils # 0.1 Nucleated Red Blood 0.0 Cells # Sodium Level 140 Potassium Level 3.9 Chloride Level 107 Carbon Dioxide Level 26 Anion Gap 7 Blood Urea Nitrogen 42 H Creatinine 1.39 H Est Glomerular Filtrat 41 L Rate mL/min Glucose Level 225 H Calcium Level 7.9 L Total Bilirubin 0.1 L Direct Bilirubin 0.00 Indirect Bilirubin 0.1 Aspartate Amino 26 Transf (AST/SGOT) Alanine 23 Aminotransferase (ALT/SG PT) Alkaline Phosphatase 94 Total Protein 6.0 L Albumin 2.6 L Globulin 3.40 H Albumin/Globulin Ratio 0.76 Test 07/24/18 07:54 Bedside Glucose 185 Medications Medication Current Medications IV Flush (NS 3 ml) 3 ml PER PROTOCOL IV ; Start 07/21/18 at 20:30 Ondansetron HCl (Zofran Inj) 4 mg Q6H PRN IV NAUSEA/VOMITING; Start 07/21/18 at 20:30 Acetaminophen (Tylenol Tab) 650 mg Q6H PRN PO .PAIN 1-3 OR TEMP; Start 07/21/18 at 20:30 Morphine Sulfate (morphine) 2 mg Q4H PRN IV .SEVERE PAIN 7-10; Start 07/21/18 at 20:30 Docusate Sodium (Colace) 100 mg Q12H PRN PO .CONSTIPATION; Start 07/21/18 at 20:30 Bisacodyl (Dulcolax) 5 mg DAILY PRN PO .CONSTIPATION; Start 07/21/18 at 20:30 Carvedilol (Coreg) 25 mg BID PO Last administered on 07/24/18at 08:40; Admin Dose 25 MG; Start 07/21/18 at 23:00 Nifedipine (Procardia Xl) 60 mg DAILY PO Last administered on 07/24/18at 08:40; Admin Dose 60 MG; Start 07/22/18 at 09:00 Zinc Sulfate (Zinc Sulfate) 220 mg DAILY PO Last administered on 07/24/18at 08:40; Admin Dose 220 MG; Start 07/22/18 at 09:00 Atorvastatin Calcium (Lipitor) 40 mg HS PO Last administered on 07/23/18at 20:59; Admin Dose 40 MG; Start 07/21/18 at 23:21 Insulin Aspart (Novolog Insulin Pen) NOVOLOG *MILD* ALGORITHM WITH MEALS BEDTIME SC Last administered on 07/24/18at 07:56; Admin Dose 2 UNIT; Start 07/22/18 at 08:00 Miscellaneous Information 1 ea NOTE XX ; Start 07/22/18 at 04:30 Glucose (Glutose) 15 gm Q15M PRN PO DECREASED GLUCOSE; Start 07/22/18 at 04:30 Glucose (Glutose) 22.5 gm Q15M PRN PO DECREASED GLUCOSE; Start 07/22/18 at 04:30 Dextrose (D50w Syringe) 25 ml Q15M PRN IV DECREASED GLUCOSE; Start 07/22/18 at 04:30 Dextrose (D50w Syringe) 50 ml Q15M PRN IV DECREASED GLUCOSE; Start 07/22/18 at 04:30 Glucagon (Glucagen) 1 mg Q15M PRN IM DECREASED GLUCOSE; Start 07/22/18 at 04:30 Glucose (Glutose) 15 gm Q15M PRN BUCCAL DECREASED GLUCOSE; Start 07/22/18 at 04:30 Collagenase (Santyl) 1 applic QAM TOP Last administered on 07/24/18 08:40; Admin Dose 1 APPLIC; Start 07/22/18 at 10:30 Gentamicin Sulfate (Gentamicin 0.1% Oint) 1 applic HS TOP Last administered on 07/23/18at 21:00; Admin Dose 1 APPLIC; Start 07/22/18 at 21:00 Multi-Ingredient Ointment (Eucerin Cream) 1 applic BID TOP Last administered on 07/24/18 08:40; Admin Dose 1 APPLIC; Start 07/22/18 at 22:00 Sodium Hypochlorite (Dakins Diluted ()) 1 applic BID TP Last administered on 07/24/18 08:40; Admin Dose 1 APPLIC; Start 07/23/18 at 15:00 NIMESH DAWKINS July 24, 2018 11:44
--- NOTE | 2018-07-24 11:59 | CONS ---
Assessment/Plan Assessment/Plan Hospital Course (Demo Recall) 1. Nonoliguric acute kidney injury with previous baseline creatinine of around 1.2 to 1.3 mg/dL. Etiology of acute kidney injury is secondary to hemodynamics. Renal function improving. At this point, continue current treatment plan, supportive care and renally dose all medications and avoid nephrotoxins. 2. Anemia. Monitor hemoglobin and hematocrit levels. 3. Mineral bone disorder, monitor calcium and phosphorus levels. 5. Blood pressure. Continue current blood pressure regimen. 6. Bilateral gangrenous foot ulcers, osteomyelitis. Continue medical management. Follow up with podiatry. The patient is pending transmetatarsal amputation. 7. Diabetes. Continue current insulin regimen. 8. Neurogenic bladder. Continue to monitor. 9. Sepsis secondary to gangrenous toes. Continue to monitor. Follow up with infectious disease. Continue antibiotic regimen. 10. History of cerebrovascular accident. Continue medical management. 11. Chronic encephalopathy. Continue to observe. 12. Metabolic acidosis, improved. off Bicitra. Consultation Date/Type/Reason Admit Date/Time July 21, 2018 at 20:31 Initial Consult Date Date/Time of Note DATE: 07/24/18 TIME: 11:58 24 HR Interval Summary Free Text/Dictation no n/v or shortness of breath urinating without issues d/w rn gen nad cv rrr pulm ctab abd soft nd nt +bs ext: no edema Exam/Review of Systems Exam Vitals Vital Signs Date Temp Pulse Resp B/P (MAP) Pulse Ox O2 O2 Flow FiO2 Time Delivery Rate 07/24/18 98.5 91 20 116/65 98 08:45 (82) 07/23/18 Room Air 13:52 Intake and Output 07/23/18 07/23/18 07/24/18 1515:00 23:00 07:00 IntakeIntake Total 940 ml 580 ml 520 ml OutputOutput Total 4 ml BalanceBalance 936 ml 580 ml 520 ml Results Result Diagram: 07/24/18 0529 07/24/18 0529 Results 24hrs Laboratory Tests Test 07/23/18 13:18 07/23/18 17:57 07/23/18 20:56 07/24/18 05:29 Bedside Glucose 170 156 178 White Blood Count 11.8 #H Red Blood Count 3.23 L Hemoglobin 9.0 L Hematocrit 27.8 L Mean Corpuscular Volume 86.1 Mean Corpuscular 27.9 L Hemoglobin Mean Corpuscular 32.4 Hemoglobin Concent Red Cell Distribution 14.6 H Width Platelet Count 222 # Mean Platelet Volume 11.3 H Immature Granulocytes % 0.700 H Neutrophils % 70.0 Lymphocytes % 16.2 Monocytes % 7.8 Eosinophils % 4.5 Basophils % 0.8 Nucleated Red Blood 0.0 Cells % Immature Granulocytes # 0.080 H Neutrophils # 8.3 H Lymphocytes # 1.9 Monocytes # 0.9 Eosinophils # 0.5 Basophils # 0.1 Nucleated Red Blood 0.0 Cells # Sodium Level 140 Potassium Level 3.9 Chloride Level 107 Carbon Dioxide Level 26 Anion Gap 7 Blood Urea Nitrogen 42 H Creatinine 1.39 H Est Glomerular Filtrat 41 L Rate mL/min Glucose Level 225 H Calcium Level 7.9 L Total Bilirubin 0.1 L Direct Bilirubin 0.00 Indirect Bilirubin 0.1 Aspartate Amino 26 Transf (AST/SGOT) Alanine 23 Aminotransferase (ALT/SG PT) Alkaline Phosphatase 94 Total Protein 6.0 L Albumin 2.6 L Globulin 3.40 H Albumin/Globulin Ratio 0.76 Test 07/24/18 07:54 Bedside Glucose 185 Medications Medication Current Medications IV Flush (NS 3 ml) 3 ml PER PROTOCOL IV ; Start 07/21/18 at 20:30 Ondansetron HCl (Zofran Inj) 4 mg Q6H PRN IV NAUSEA/VOMITING; Start 07/21/18 at 20:30 Acetaminophen (Tylenol Tab) 650 mg Q6H PRN PO .PAIN 1-3 OR TEMP; Start 07/21/18 at 20:30 Morphine Sulfate (morphine) 2 mg Q4H PRN IV .SEVERE PAIN 7-10; Start 07/21/18 at 20:30 Docusate Sodium (Colace) 100 mg Q12H PRN PO .CONSTIPATION; Start 07/21/18 at 20:30 Bisacodyl (Dulcolax) 5 mg DAILY PRN PO .CONSTIPATION; Start 07/21/18 at 20:30 Carvedilol (Coreg) 25 mg BID PO Last administered on 07/24/18at 08:40; Admin Dose 25 MG; Start 07/21/18 at 23:00 Nifedipine (Procardia Xl) 60 mg DAILY PO Last administered on 07/24/18at 08:40; Admin Dose 60 MG; Start 07/22/18 at 09:00 Zinc Sulfate (Zinc Sulfate) 220 mg DAILY PO Last administered on 07/24/18 08:40; Admin Dose 220 MG; Start 07/22/18 at 09:00 Atorvastatin Calcium (Lipitor) 40 mg HS PO Last administered on 07/23/18 20:59; Admin Dose 40 MG; Start 07/21/18 at 23:21 Insulin Aspart (Novolog Insulin Pen) NOVOLOG *MILD* ALGORITHM WITH MEALS BEDTIME SC Last administered on 07/24/18 07:56; Admin Dose 2 UNIT; Start 07/22/18 at 08:00 Miscellaneous Information 1 ea NOTE XX ; Start 07/22/18 at 04:30 Glucose (Glutose) 15 gm Q15M PRN PO DECREASED GLUCOSE; Start 07/22/18 at 04:30 Glucose (Glutose) 22.5 gm Q15M PRN PO DECREASED GLUCOSE; Start 07/22/18 at 04:30 Dextrose (D50w Syringe) 25 ml Q15M PRN IV DECREASED GLUCOSE; Start 07/22/18 at 04:30 Dextrose (D50w Syringe) 50 ml Q15M PRN IV DECREASED GLUCOSE; Start 07/22/18 at 04:30 Glucagon (Glucagen) 1 mg Q15M PRN IM DECREASED GLUCOSE; Start 07/22/18 at 04:30 Glucose (Glutose) 15 gm Q15M PRN BUCCAL DECREASED GLUCOSE; Start 07/22/18 at 04:30 Collagenase (Santyl) 1 applic QAM TOP Last administered on 07/24/18 08:40; Admin Dose 1 APPLIC; Start 07/22/18 at 10:30 Gentamicin Sulfate (Gentamicin 0.1% Oint) 1 applic HS TOP Last administered on 07/23/18 21:00; Admin Dose 1 APPLIC; Start 07/22/18 at 21:00 Multi-Ingredient Ointment (Eucerin Cream) 1 applic BID TOP Last administered on 07/24/18 08:40; Admin Dose 1 APPLIC; Start 07/22/18 at 22:00 Sodium Hypochlorite (Dakins Diluted ()) 1 applic BID TP Last administered on 07/24/18 08:40; Admin Dose 1 APPLIC; Start 07/23/18 at 15:00 BRENNON HASSAN MD July 24, 2018 11:59
--- NOTE | 2018-07-24 15:06 | PN ---
Date/Time of Note Date/Time of Note DATE: 07/24/18 TIME: 15:05 Assessment/Plan VTE Prophylaxis Risk score (from Ns)>0 risk: 5 SCD applied (from Ns): Yes Pharmacological prophylaxis: heparin Lines/Catheters IV Catheter Type (from Nrsg): PICC Line Central line still needed: Yes Urinary Cath still in place: No Assessment/Plan Hospital Course Well appearing in NAD AOx3 RRR CTAB Gangrene of index finger and toes A/P: 48 yo female with h/o critical illness for which received vasopressors and developed digital ischemia who recovered but developed gangrene of toes and finger who was referred to hospital for evaluation of leukocytosis. Found to have OM of feet - Abx per ID - surgical management per podiatry DMII: - sliding scale insulin hypertension: - continue nifedipine, coreg Result Diagram: 07/24/1829 07/24/18528 Results 24hrs Laboratory Tests Test 07/23/18 17:57 07/23/18 20:56 07/24/18 05:29 07/24/18 07:54 Bedside Glucose 156 178 185 White Blood Count 11.8 #H Red Blood Count 3.23 L Hemoglobin 9.0 L Hematocrit 27.8 L Mean Corpuscular Volume 86.1 Mean Corpuscular 27.9 L Hemoglobin Mean Corpuscular 32.4 Hemoglobin Concent Red Cell Distribution 14.6 H Width Platelet Count 222 # Mean Platelet Volume 11.3 H Immature Granulocytes % 0.700 H Neutrophils % 70.0 Lymphocytes % 16.2 Monocytes % 7.8 Eosinophils % 4.5 Basophils % 0.8 Nucleated Red Blood 0.0 Cells % Immature Granulocytes # 0.080 H Neutrophils # 8.3 H Lymphocytes # 1.9 Monocytes # 0.9 Eosinophils # 0.5 Basophils # 0.1 Nucleated Red Blood 0.0 Cells # Sodium Level 140 Potassium Level 3.9 Chloride Level 107 Carbon Dioxide Level 26 Anion Gap 7 Blood Urea Nitrogen 42 H Creatinine 1.39 H Est Glomerular Filtrat 41 L Rate mL/min Glucose Level 225 H Calcium Level 7.9 L Total Bilirubin 0.1 L Direct Bilirubin 0.00 Indirect Bilirubin 0.1 Aspartate Amino 26 Transf (AST/SGOT) Alanine 23 Aminotransferase (ALT/SG PT) Alkaline Phosphatase 94 Total Protein 6.0 L Albumin 2.6 L Globulin 3.40 H Albumin/Globulin Ratio 0.76 Test 07/24/18 12:59 Bedside Glucose 170 Subjective 24 Hr Interval Summary Free Text/Dictation No change to clinical status Awaiting podiatry surgery Exam/Review of Systems Exam Vitals Vital Signs Date Temp Pulse Resp B/P (MAP) Pulse Ox O2 O2 Flow FiO2 Time Delivery Rate 07/24/18 98.5 91 20 116/65 98 08:45 (82) 07/23/18 Room Air 13:52 Intake and Output 07/23/18 07/23/18 07/24/18 1414:59 22:59 06:59 IntakeIntake Total 940 ml 580 ml 520 ml OutputOutput Total 4 ml BalanceBalance 936 ml 580 ml 520 ml Results Results 24hrs Laboratory Tests Test 07/23/18 17:57 07/23/18 20:56 07/24/18 05:29 07/24/18 07:54 Bedside Glucose 156 178 185 White Blood Count 11.8 #H Red Blood Count 3.23 L Hemoglobin 9.0 L Hematocrit 27.8 L Mean Corpuscular Volume 86.1 Mean Corpuscular 27.9 L Hemoglobin Mean Corpuscular 32.4 Hemoglobin Concent Red Cell Distribution 14.6 H Width Platelet Count 222 # Mean Platelet Volume 11.3 H Immature Granulocytes % 0.700 H Neutrophils % 70.0 Lymphocytes % 16.2 Monocytes % 7.8 Eosinophils % 4.5 Basophils % 0.8 Nucleated Red Blood 0.0 Cells % Immature Granulocytes # 0.080 H Neutrophils # 8.3 H Lymphocytes # 1.9 Monocytes # 0.9 Eosinophils # 0.5 Basophils # 0.1 Nucleated Red Blood 0.0 Cells # Sodium Level 140 Potassium Level 3.9 Chloride Level 107 Carbon Dioxide Level 26 Anion Gap 7 Blood Urea Nitrogen 42 H Creatinine 1.39 H Est Glomerular Filtrat 41 L Rate mL/min Glucose Level 225 H Calcium Level 7.9 L Total Bilirubin 0.1 L Direct Bilirubin 0.00 Indirect Bilirubin 0.1 Aspartate Amino 26 Transf (AST/SGOT) Alanine 23 Aminotransferase (ALT/SG PT) Alkaline Phosphatase 94 Total Protein 6.0 L Albumin 2.6 L Globulin 3.40 H Albumin/Globulin Ratio 0.76 Test 07/24/18 12:59 Bedside Glucose 170 Medications Medication Current Medications IV Flush (NS 3 ml) 3 ml PER PROTOCOL IV ; Start 07/21/18 at 20:30 Ondansetron HCl (Zofran Inj) 4 mg Q6H PRN IV NAUSEA/VOMITING; Start 07/21/18 at 20:30 Acetaminophen (Tylenol Tab) 650 mg Q6H PRN PO .PAIN 1-3 OR TEMP; Start 07/21/18 at 20:30 Morphine Sulfate (morphine) 2 mg Q4H PRN IV .SEVERE PAIN 7-10; Start 07/21/18 at 20:30 Docusate Sodium (Colace) 100 mg Q12H PRN PO .CONSTIPATION; Start 07/21/18 at 20:30 Bisacodyl (Dulcolax) 5 mg DAILY PRN PO .CONSTIPATION; Start 07/21/18 at 20:30 Carvedilol (Coreg) 25 mg BID PO Last administered on 07/24/18at 08:40; Admin Dose 25 MG; Start 07/21/18 at 23:00 Nifedipine (Procardia Xl) 60 mg DAILY PO Last administered on 07/24/18at 08:40; Admin Dose 60 MG; Start 07/22/18 at 09:00 Zinc Sulfate (Zinc Sulfate) 220 mg DAILY PO Last administered on 07/24/18at 08:40; Admin Dose 220 MG; Start 07/22/18 at 09:00 Atorvastatin Calcium (Lipitor) 40 mg HS PO Last administered on 07/23/18at 20:59; Admin Dose 40 MG; Start 07/21/18 at 23:21 Insulin Aspart (Novolog Insulin Pen) NOVOLOG *MILD* ALGORITHM WITH MEALS BEDTIME SC Last administered on 07/24/18at 13:01; Admin Dose 1 UNIT; Start 07/22/18 at 08:00 Miscellaneous Information 1 ea NOTE XX ; Start 07/22/18 at 04:30 Glucose (Glutose) 15 gm Q15M PRN PO DECREASED GLUCOSE; Start 07/22/18 at 04:30 Glucose (Glutose) 22.5 gm Q15M PRN PO DECREASED GLUCOSE; Start 07/22/18 at 04:30 Dextrose (D50w Syringe) 25 ml Q15M PRN IV DECREASED GLUCOSE; Start 07/22/18 at 04:30 Dextrose (D50w Syringe) 50 ml Q15M PRN IV DECREASED GLUCOSE; Start 07/22/18 at 04:30 Glucagon (Glucagen) 1 mg Q15M PRN IM DECREASED GLUCOSE; Start 07/22/18 at 04:30 Glucose (Glutose) 15 gm Q15M PRN BUCCAL DECREASED GLUCOSE; Start 07/22/18 at 04:30 Collagenase (Santyl) 1 applic QAM TOP Last administered on 07/24/18 08:40; Admin Dose 1 APPLIC; Start 07/22/18 at 10:30 Gentamicin Sulfate (Gentamicin 0.1% Oint) 1 applic HS TOP Last administered on 07/23/18at 21:00; Admin Dose 1 APPLIC; Start 07/22/18 at 21:00 Multi-Ingredient Ointment (Eucerin Cream) 1 applic BID TOP Last administered on 07/24/18 08:40; Admin Dose 1 APPLIC; Start 07/22/18 at 22:00 Sodium Hypochlorite (Dakins Diluted ()) 1 applic BID TP Last administered on 07/24/18 08:40; Admin Dose 1 APPLIC; Start 07/23/18 at 15:00 BRET PARIKH MD July 24, 2018 15:06
[2018-07-24 15:55] VITALS: BP 126/68; PULSE 90; RESP 20
[2018-07-24 19:43] VITALS: BP 123/64; PULSE 92; RESP 18
[2018-07-24] MEDS: GENTAMICIN 0.1% 15 GM OINT TOP SCH (20:40)
[2018-07-24] MEDS: ATORVASTATIN 40 MG TAB PO SCH (20:41)
[2018-07-25 02:08] VITALS: BP 116/63; PULSE 91; RESP 18
[2018-07-25] MEDS: INSULIN ASPART [NOVOLOG] 3 ML PEN SC SCH ×4 (08:18→21:11)
[2018-07-25] MEDS: ZINC SULFATE 220 MG CAP PO SCH (08:19)
[2018-07-25] MEDS: NIFEdipine (XL) 60 MG TAB PO SCH (08:19)
[2018-07-25] MEDS: EUCERIN 113 GM CR TOP SCH ×2 (08:20→21:07)
[2018-07-25] MEDS: COLLAGENASE 5 GM (UD JAR) TOP SCH (08:20)
[2018-07-25] MEDS: DAKINS 0.0125%(1/40) 473 ML SOLUTION TP SCH ×2 (08:21→21:07)
[2018-07-25 08:31] VITALS: BP 114/62; PULSE 89; RESP 18
--- NOTE | 2018-07-25 12:08 | CONS ---
Assessment/Plan Assessment/Plan Hospital Course (Demo Recall) 1. Nonoliguric acute kidney injury with previous baseline creatinine of around 1.2 to 1.3 mg/dL. Etiology of acute kidney injury is secondary to hemodynamics. Renal function improving and near baseline. At this point, continue current treatment plan, supportive care and renally dose all medications and avoid nephrotoxins. 2. Anemia. Monitor hemoglobin and hematocrit levels. 3. Mineral bone disorder, monitor calcium and phosphorus levels. 5. Blood pressure. Continue current blood pressure regimen. 6. Bilateral gangrenous foot ulcers, osteomyelitis. Continue medical management. Follow up with podiatry. The patient is pending transmetatarsal amputation. 7. Diabetes. Continue current insulin regimen. 8. Neurogenic bladder. Continue to monitor. 9. Sepsis secondary to gangrenous toes. Continue to monitor. Follow up with infectious disease. Continue antibiotic regimen. 10. History of cerebrovascular accident. Continue medical management. 11. Chronic encephalopathy. Continue to observe. 12. Metabolic acidosis, improved. off Bicitra. Consultation Date/Type/Reason Admit Date/Time July 21, 2018 at 20:31 Initial Consult Date Date/Time of Note DATE: 07/25/18 TIME: 12:08 24 HR Interval Summary Free Text/Dictation denies shortness of breath, n/v d/w rn gen nad cv rrr pulm ctab abd soft, nd, nt +bs ext: no edema Exam/Review of Systems Exam Vitals Vital Signs Date Temp Pulse Resp B/P (MAP) Pulse Ox O2 O2 Flow FiO2 Time Delivery Rate 07/25/18 98.3 89 18 114/62 98 Room Air 08:31 (79) Intake and Output 07/24/18 07/24/18 07/25/18 1515:00 23:00 07:00 IntakeIntake Total 280 ml 1010 ml 240 ml BalanceBalance 280 ml 1010 ml 240 ml Results Result Diagram: 07/25/18 0505 07/25/18 0505 Results 24hrs Laboratory Tests Test 07/24/18 12:59 07/24/18 17:16 07/24/18 20:44 07/25/18 02:13 Bedside Glucose 170 249 H 192 272 H Test 07/25/18 05:05 07/25/18 08:11 White Blood Count 10.2 Red Blood Count 2.90 L Hemoglobin 7.9 L Hematocrit 24.6 L Mean Corpuscular Volume 84.8 Mean Corpuscular 27.2 L Hemoglobin Mean Corpuscular 32.1 Hemoglobin Concent Red Cell Distribution 14.8 H Width Platelet Count 247 Mean Platelet Volume 11.0 H Immature Granulocytes % 1.100 H Neutrophils % 64.4 Lymphocytes % 19.6 Monocytes % 8.4 Eosinophils % 5.8 Basophils % 0.7 Nucleated Red Blood 0.0 Cells % Immature Granulocytes # 0.110 H Neutrophils # 6.6 Lymphocytes # 2.0 Monocytes # 0.9 Eosinophils # 0.6 H Basophils # 0.1 Nucleated Red Blood 0.0 Cells # Sodium Level 139 Potassium Level 3.9 Chloride Level 107 Carbon Dioxide Level 25 Anion Gap 7 Blood Urea Nitrogen 46 H Creatinine 1.38 H Est Glomerular Filtrat 41 L Rate mL/min Glucose Level 259 H Calcium Level 8.0 L Total Bilirubin 0.0 L Direct Bilirubin 0.00 Indirect Bilirubin 0.0 Aspartate Amino 22 Transf (AST/SGOT) Alanine 25 Aminotransferase (ALT/SG PT) Alkaline Phosphatase 77 Total Protein 5.7 L Albumin 2.4 L Globulin 3.30 H Albumin/Globulin Ratio 0.72 Bedside Glucose 216 Medications Medication Current Medications IV Flush (NS 3 ml) 3 ml PER PROTOCOL IV ; Start 07/21/18 at 20:30 Ondansetron HCl (Zofran Inj) 4 mg Q6H PRN IV NAUSEA/VOMITING; Start 07/21/18 at 20:30 Acetaminophen (Tylenol Tab) 650 mg Q6H PRN PO .PAIN 1-3 OR TEMP; Start 07/21/18 at 20:30 Morphine Sulfate (morphine) 2 mg Q4H PRN IV .SEVERE PAIN 7-10; Start 07/21/18 at 20:30 Docusate Sodium (Colace) 100 mg Q12H PRN PO .CONSTIPATION; Start 07/21/18 at 20:30 Bisacodyl (Dulcolax) 5 mg DAILY PRN PO .CONSTIPATION Last administered on 07/24/18at 16:17; Admin Dose 5 MG; Start 07/21/18 at 20:30 Carvedilol (Coreg) 25 mg BID PO Last administered on 07/25/18at 08:20; Admin Dose 25 MG; Start 07/21/18 at 23:00 Nifedipine (Procardia Xl) 60 mg DAILY PO Last administered on 07/25/18 08:19; Admin Dose 60 MG; Start 07/22/18 at 09:00 Zinc Sulfate (Zinc Sulfate) 220 mg DAILY PO Last administered on 07/25/18 08:19; Admin Dose 220 MG; Start 07/22/18 at 09:00 Atorvastatin Calcium (Lipitor) 40 mg HS PO Last administered on 07/24/18 20:41; Admin Dose 40 MG; Start 07/21/18 at 23:21 Insulin Aspart (Novolog Insulin Pen) NOVOLOG *MILD* ALGORITHM WITH MEALS BEDTIME SC Last administered on 07/25/18 08:18; Admin Dose 2 UNIT; Start 07/22/18 at 08:00 Miscellaneous Information 1 ea NOTE XX ; Start 07/22/18 at 04:30 Glucose (Glutose) 15 gm Q15M PRN PO DECREASED GLUCOSE; Start 07/22/18 at 04:30 Glucose (Glutose) 22.5 gm Q15M PRN PO DECREASED GLUCOSE; Start 07/22/18 at 04:30 Dextrose (D50w Syringe) 25 ml Q15M PRN IV DECREASED GLUCOSE; Start 07/22/18 at 04:30 Dextrose (D50w Syringe) 50 ml Q15M PRN IV DECREASED GLUCOSE; Start 07/22/18 at 04:30 Glucagon (Glucagen) 1 mg Q15M PRN IM DECREASED GLUCOSE; Start 07/22/18 at 04:30 Glucose (Glutose) 15 gm Q15M PRN BUCCAL DECREASED GLUCOSE; Start 07/22/18 at 04:30 Collagenase (Santyl) 1 applic QAM TOP Last administered on 07/25/18 08:20; Admin Dose 1 APPLIC; Start 07/22/18 at 10:30 Gentamicin Sulfate (Gentamicin 0.1% Oint) 1 applic HS TOP Last administered on 07/24/18 20:40; Admin Dose 1 APPLIC; Start 07/22/18 at 21:00 Multi-Ingredient Ointment (Eucerin Cream) 1 applic BID TOP Last administered on 07/25/18 08:20; Admin Dose 1 APPLIC; Start 07/22/18 at 22:00 Sodium Hypochlorite (Dakins Diluted (1/40)) 1 applic BID TP Last administered on 07/25/18 08:21; Admin Dose 1 APPLIC; Start 07/23/18 at 15:00 BRENNON HASSAN MD July 25, 2018 12:08
--- NOTE | 2018-07-25 12:12 | CONS ---
Consultation Date/Type/Reason Admit Date/Time July 21, 2018 at 20:31 Initial Consult Date Type of Consult SUBJECTIVE: Pt is awake, alert, no fevers. No acute events over night. VS: stable T: 98.3 LABS: Reviewed. WBC- 10.2 Antimicrobials: Tygacil, cefepime Microbiology: Wound culture grew multidrug-resistant Acinetobacter, enterococcus, E. coli RT FOOT WOUND CX: GRAM STAIN Final POLYMORPH. LEUKOCYTE RARE GRAM POSITIVE COCCI 1+ GRAM POSITIVE RODS 1+ WOUND CULTURE Preliminary Organism 1 ACINETOBACTER BAUMANNII QUANTITY 3+ Organism 2 CORYNEBACTERIUM SPECIES QUANTITY 3+ PREVIOUSLY REPORTED MDRO. Susceptibilities previously reported, see prior culture report of same specimen site. LT FOOT WOUND CX: NATI STAIN Final POLYMORPH. LEUKOCYTE NONE SEEN GRAM NEGATIVE RODS RARE WOUND CULTURE Preliminary Organism 1 ACINETOBACTER BAUMANNII QUANTITY 3+ Organism 2 CORYNEBACTERIUM SPECIES QUANTITY 3+ CORYNEBACTERIUM SPECIES: Clinical susceptibiltiy testing standard for this organism have not been established. However, this organism has demonstrated in vitro growth inhibition to the following chemotherapeutic agents listed as susceptible. PHONED TO JAKE WOODS, NOTIFIED ARELY MURO, AND A COPY TO AT 0942 07/24/2018 BY LAUREN. Acinetobacter baumannii: Multi drug resistant organism Physical examination: GEN: Well-developed well-nourished middle-aged woman, who is alert in no distress. HENT: Head atraumatic normocephalic, sclera nonicteric. Neck is supple. PULM: Chest rise symmetrical, breath sounds clear. Heart: S1-S2. Abdomen soft bowel sounds present. Extremities with bilateral lower extremities dressing clean dry and intact Assessment: 1. Bilateral lower extremities gangrene/Osteomyelitis 2. Chronic kidney disease, history of hemodialysis 3. Diabetes 4. RUE PICC Plan: Pt is stable. Pending vascular evaluation. Continue with continue abx Date/Time of Note DATE: 07/25/18 TIME: 12:11 Exam/Review of Systems Exam Vitals Vital Signs Date Temp Pulse Resp B/P (MAP) Pulse Ox O2 O2 Flow FiO2 Time Delivery Rate 07/25/18 98.3 89 18 114/62 98 Room Air 08:31 (79) Intake and Output 07/24/18 07/24/18 07/25/18 1515:00 23:00 07:00 IntakeIntake Total 280 ml 1010 ml 240 ml BalanceBalance 280 ml 1010 ml 240 ml Results Result Diagram: 07/25/18 0505 07/25/18 0505 Results 24hrs Laboratory Tests Test 07/24/18 12:59 07/24/18 17:16 07/24/18 20:44 07/25/18 02:13 Bedside Glucose 170 249 H 192 272 H Test 07/25/18 05:05 07/25/18 08:11 White Blood Count 10.2 Red Blood Count 2.90 L Hemoglobin 7.9 L Hematocrit 24.6 L Mean Corpuscular Volume 84.8 Mean Corpuscular 27.2 L Hemoglobin Mean Corpuscular 32.1 Hemoglobin Concent Red Cell Distribution 14.8 H Width Platelet Count 247 Mean Platelet Volume 11.0 H Immature Granulocytes % 1.100 H Neutrophils % 64.4 Lymphocytes % 19.6 Monocytes % 8.4 Eosinophils % 5.8 Basophils % 0.7 Nucleated Red Blood 0.0 Cells % Immature Granulocytes # 0.110 H Neutrophils # 6.6 Lymphocytes # 2.0 Monocytes # 0.9 Eosinophils # 0.6 H Basophils # 0.1 Nucleated Red Blood 0.0 Cells # Sodium Level 139 Potassium Level 3.9 Chloride Level 107 Carbon Dioxide Level 25 Anion Gap 7 Blood Urea Nitrogen 46 H Creatinine 1.38 H Est Glomerular Filtrat 41 L Rate mL/min Glucose Level 259 H Calcium Level 8.0 L Total Bilirubin 0.0 L Direct Bilirubin 0.00 Indirect Bilirubin 0.0 Aspartate Amino 22 Transf (AST/SGOT) Alanine 25 Aminotransferase (ALT/SG PT) Alkaline Phosphatase 77 Total Protein 5.7 L Albumin 2.4 L Globulin 3.30 H Albumin/Globulin Ratio 0.72 Bedside Glucose 216 Medications Medication Current Medications IV Flush (NS 3 ml) 3 ml PER PROTOCOL IV ; Start 07/21/18 at 20:30 Ondansetron HCl (Zofran Inj) 4 mg Q6H PRN IV NAUSEA/VOMITING; Start 07/21/18 at 20:30 Acetaminophen (Tylenol Tab) 650 mg Q6H PRN PO .PAIN 1-3 OR TEMP; Start 07/21/18 at 20:30 Morphine Sulfate (morphine) 2 mg Q4H PRN IV .SEVERE PAIN 7-10; Start 07/21/18 at 20:30 Docusate Sodium (Colace) 100 mg Q12H PRN PO .CONSTIPATION; Start 07/21/18 at 20:30 Bisacodyl (Dulcolax) 5 mg DAILY PRN PO .CONSTIPATION Last administered on 07/24/18at 16:17; Admin Dose 5 MG; Start 07/21/18 at 20:30 Carvedilol (Coreg) 25 mg BID PO Last administered on 07/25/18at 08:20; Admin Dose 25 MG; Start 07/21/18 at 23:00 Nifedipine (Procardia Xl) 60 mg DAILY PO Last administered on 07/25/18at 08:19; Admin Dose 60 MG; Start 07/22/18 at 09:00 Zinc Sulfate (Zinc Sulfate) 220 mg DAILY PO Last administered on 07/25/18 08:19; Admin Dose 220 MG; Start 07/22/18 at 09:00 Atorvastatin Calcium (Lipitor) 40 mg HS PO Last administered on 07/24/18at 20:41; Admin Dose 40 MG; Start 07/21/18 at 23:21 Insulin Aspart (Novolog Insulin Pen) NOVOLOG *MILD* ALGORITHM WITH MEALS BEDTIME SC Last administered on 07/25/18at 08:18; Admin Dose 2 UNIT; Start 07/22/18 at 08:00 Miscellaneous Information 1 ea NOTE XX ; Start 07/22/18 at 04:30 Glucose (Glutose) 15 gm Q15M PRN PO DECREASED GLUCOSE; Start 07/22/18 at 04:30 Glucose (Glutose) 22.5 gm Q15M PRN PO DECREASED GLUCOSE; Start 07/22/18 at 04:30 Dextrose (D50w Syringe) 25 ml Q15M PRN IV DECREASED GLUCOSE; Start 07/22/18 at 04:30 Dextrose (D50w Syringe) 50 ml Q15M PRN IV DECREASED GLUCOSE; Start 07/22/18 at 04:30 Glucagon (Glucagen) 1 mg Q15M PRN IM DECREASED GLUCOSE; Start 07/22/18 at 04:30 Glucose (Glutose) 15 gm Q15M PRN BUCCAL DECREASED GLUCOSE; Start 07/22/18 at 04:30 Collagenase (Santyl) 1 applic QAM TOP Last administered on 07/25/18 08:20; Admin Dose 1 APPLIC; Start 07/22/18 at 10:30 Gentamicin Sulfate (Gentamicin 0.1% Oint) 1 applic HS TOP Last administered on 07/24/18 20:40; Admin Dose 1 APPLIC; Start 07/22/18 at 21:00 Multi-Ingredient Ointment (Eucerin Cream) 1 applic BID TOP Last administered on 07/25/18 08:20; Admin Dose 1 APPLIC; Start 07/22/18 at 22:00 Sodium Hypochlorite (Dakins Diluted (1/40)) 1 applic BID TP Last administered on 07/25/18 08:21; Admin Dose 1 APPLIC; Start 07/23/18 at 15:00 NIMESH DAWKINS July 25, 2018 12:12
--- NOTE | 2018-07-25 14:50 | PN ---
Date/Time of Note Date/Time of Note DATE: 07/25/18 TIME: 14:49 Assessment/Plan VTE Prophylaxis Risk score (from Nsg)>0 risk: 4 SCD applied (from Nsg): Yes Pharmacological prophylaxis: heparin Lines/Catheters IV Catheter Type (from Nrsg): PICC Line Central line still needed: Yes Urinary Cath still in place: No Assessment/Plan Hospital Course Well appearing in NAD AOx3 RRR CTAB Gangrene of index finger and toes A/P: 48 yo female with h/o critical illness for which received vasopressors and developed digital ischemia who recovered but developed gangrene of toes and finger who was referred to hospital for evaluation of leukocytosis. Found to have OM of feet - Abx per ID - surgical management per podiatry DMII: - sliding scale insulin hypertension: - continue nifedipine, coreg Result Diagram: 07/25/18 0505 07/25/18 0505 Results 24hrs Laboratory Tests Test 07/24/18 17:16 07/24/18 20:44 07/25/18 02:13 07/25/18 05:05 Bedside Glucose 249 H 192 272 H White Blood Count 10.2 Red Blood Count 2.90 L Hemoglobin 7.9 L Hematocrit 24.6 L Mean Corpuscular Volume 84.8 Mean Corpuscular 27.2 L Hemoglobin Mean Corpuscular 32.1 Hemoglobin Concent Red Cell Distribution 14.8 H Width Platelet Count 247 Mean Platelet Volume 11.0 H Immature Granulocytes % 1.100 H Neutrophils % 64.4 Lymphocytes % 19.6 Monocytes % 8.4 Eosinophils % 5.8 Basophils % 0.7 Nucleated Red Blood 0.0 Cells % Immature Granulocytes # 0.110 H Neutrophils # 6.6 Lymphocytes # 2.0 Monocytes # 0.9 Eosinophils # 0.6 H Basophils # 0.1 Nucleated Red Blood 0.0 Cells # Sodium Level 139 Potassium Level 3.9 Chloride Level 107 Carbon Dioxide Level 25 Anion Gap 7 Blood Urea Nitrogen 46 H Creatinine 1.38 H Est Glomerular Filtrat 41 L Rate mL/min Glucose Level 259 H Calcium Level 8.0 L Total Bilirubin 0.0 L Direct Bilirubin 0.00 Indirect Bilirubin 0.0 Aspartate Amino 22 Transf (AST/SGOT) Alanine 25 Aminotransferase (ALT/SG PT) Alkaline Phosphatase 77 Total Protein 5.7 L Albumin 2.4 L Globulin 3.30 H Albumin/Globulin Ratio 0.72 Test 07/25/18 08:11 07/25/18 13:00 Bedside Glucose 216 195 Subjective 24 Hr Interval Summary Free Text/Dictation No change to clinical status Awaiting placement Exam/Review of Systems Exam Vitals Vital Signs Date Temp Pulse Resp B/P (MAP) Pulse Ox O2 O2 Flow FiO2 Time Delivery Rate 07/25/18 98.3 89 18 114/62 98 Room Air 08:31 (79) Intake and Output 07/24/18 07/24/18 07/25/18 1414:59 22:59 06:59 IntakeIntake Total 280 ml 1010 ml 240 ml BalanceBalance 280 ml 1010 ml 240 ml Results Results 24hrs Laboratory Tests Test 07/24/18 17:16 07/24/18 20:44 07/25/18 02:13 07/25/18 05:05 Bedside Glucose 249 H 192 272 H White Blood Count 10.2 Red Blood Count 2.90 L Hemoglobin 7.9 L Hematocrit 24.6 L Mean Corpuscular Volume 84.8 Mean Corpuscular 27.2 L Hemoglobin Mean Corpuscular 32.1 Hemoglobin Concent Red Cell Distribution 14.8 H Width Platelet Count 247 Mean Platelet Volume 11.0 H Immature Granulocytes % 1.100 H Neutrophils % 64.4 Lymphocytes % 19.6 Monocytes % 8.4 Eosinophils % 5.8 Basophils % 0.7 Nucleated Red Blood 0.0 Cells % Immature Granulocytes # 0.110 H Neutrophils # 6.6 Lymphocytes # 2.0 Monocytes # 0.9 Eosinophils # 0.6 H Basophils # 0.1 Nucleated Red Blood 0.0 Cells # Sodium Level 139 Potassium Level 3.9 Chloride Level 107 Carbon Dioxide Level 25 Anion Gap 7 Blood Urea Nitrogen 46 H Creatinine 1.38 H Est Glomerular Filtrat 41 L Rate mL/min Glucose Level 259 H Calcium Level 8.0 L Total Bilirubin 0.0 L Direct Bilirubin 0.00 Indirect Bilirubin 0.0 Aspartate Amino 22 Transf (AST/SGOT) Alanine 25 Aminotransferase (ALT/SG PT) Alkaline Phosphatase 77 Total Protein 5.7 L Albumin 2.4 L Globulin 3.30 H Albumin/Globulin Ratio 0.72 Test 07/25/18 08:11 07/25/18 13:00 Bedside Glucose 216 195 Medications Medication Current Medications IV Flush (NS 3 ml) 3 ml PER PROTOCOL IV ; Start 07/21/18 at 20:30 Ondansetron HCl (Zofran Inj) 4 mg Q6H PRN IV NAUSEA/VOMITING; Start 07/21/18 at 20:30 Acetaminophen (Tylenol Tab) 650 mg Q6H PRN PO .PAIN 1-3 OR TEMP; Start 07/21/18 at 20:30 Morphine Sulfate (morphine) 2 mg Q4H PRN IV .SEVERE PAIN 7-10; Start 07/21/18 at 20:30 Docusate Sodium (Colace) 100 mg Q12H PRN PO .CONSTIPATION; Start 07/21/18 at 20:30 Bisacodyl (Dulcolax) 5 mg DAILY PRN PO .CONSTIPATION Last administered on at 16:17; Admin Dose 5 MG; Start 07/21/18 at 20:30 Carvedilol (Coreg) 25 mg BID PO Last administered on 07/25/18at 08:20; Admin Dose 25 MG; Start 07/21/18 at 23:00 Nifedipine (Procardia Xl) 60 mg DAILY PO Last administered on 07/25/18at 08:19; Admin Dose 60 MG; Start 07/22/18 at 09:00 Zinc Sulfate (Zinc Sulfate) 220 mg DAILY PO Last administered on 07/25/18at 08:19; Admin Dose 220 MG; Start 07/22/18 at 09:00 Atorvastatin Calcium (Lipitor) 40 mg HS PO Last administered on 07/24/18at 20:41; Admin Dose 40 MG; Start 07/21/18 at 23:21 Insulin Aspart (Novolog Insulin Pen) NOVOLOG *MILD* ALGORITHM WITH MEALS BEDTIME SC Last administered on 07/25/18at 08:18; Admin Dose 2 UNIT; Start 07/22/18 at 08:00 Miscellaneous Information 1 ea NOTE XX ; Start 07/22/18 at 04:30 Glucose (Glutose) 15 gm Q15M PRN PO DECREASED GLUCOSE; Start 07/22/18 at 04:30 Glucose (Glutose) 22.5 gm Q15M PRN PO DECREASED GLUCOSE; Start 07/22/18 at 04:30 Dextrose (D50w Syringe) 25 ml Q15M PRN IV DECREASED GLUCOSE; Start 07/22/18 at 04:30 Dextrose (D50w Syringe) 50 ml Q15M PRN IV DECREASED GLUCOSE; Start 07/22/18 at 04:30 Glucagon (Glucagen) 1 mg Q15M PRN IM DECREASED GLUCOSE; Start 07/22/18 at 04:30 Glucose (Glutose) 15 gm Q15M PRN BUCCAL DECREASED GLUCOSE; Start 07/22/18 at 04:30 Collagenase (Santyl) 1 applic QAM TOP Last administered on 07/25/18at 08:20; Admin Dose 1 APPLIC; Start 07/22/18 at 10:30 Gentamicin Sulfate (Gentamicin 0.1% Oint) 1 applic HS TOP Last administered on 07/24/18at 20:40; Admin Dose 1 APPLIC; Start 07/22/18 at 21:00 Multi-Ingredient Ointment (Eucerin Cream) 1 applic BID TOP Last administered on 07/25/18 08:20; Admin Dose 1 APPLIC; Start 07/22/18 at 22:00 Sodium Hypochlorite (Dakins Diluted (1/40)) 1 applic BID TP Last administered on 07/25/18 08:21; Admin Dose 1 APPLIC; Start 07/23/18 at 15:00 Insulin Glargine (Lantus) 9 units DAILY@2000 SC ; Start 07/25/18 at 20:00 BRET PARIKH MD July 25, 2018 14:50
[2018-07-25 15:34] VITALS: BP 117/62; PULSE 84; RESP 18
[2018-07-25] MEDS: CEFEPIME 2GM/50 ML IVPB SCH (17:58)
[2018-07-25 19:58] VITALS: BP 122/69; PULSE 87; RESP 16
[2018-07-25] MEDS: ATORVASTATIN 40 MG TAB PO SCH (21:03)
[2018-07-25] MEDS: TIGECYCLINE 50 MG in SOD CHLORIDE 0.9% 100 ML IVPB SCH (21:04)
[2018-07-25] MEDS: GENTAMICIN 0.1% 15 GM OINT TOP SCH (21:07)
[2018-07-25] MEDS: INSULIN GLARGINE [LANTus] (100 UNITS/ML) SYG SC SCH (21:12)
[2018-07-26 01:41] VITALS: BP_SYST 120; BP_SYST 125; BP_DIAS 69; BP_DIAS 71; PULSE 82; PULSE 92; RESP 18
[2018-07-26 07:47] VITALS: BP 119/65; PULSE 89; RESP 20
[2018-07-26] MEDS: INSULIN ASPART [NOVOLOG] 3 ML PEN SC SCH ×4 (08:39→21:00)
[2018-07-26] MEDS: ZINC SULFATE 220 MG CAP PO SCH (08:41)
[2018-07-26] MEDS: NIFEdipine (XL) 60 MG TAB PO SCH (08:41)
[2018-07-26] MEDS: TIGECYCLINE 50 MG in SOD CHLORIDE 0.9% 100 ML IVPB SCH ×2 (08:44→22:24)
[2018-07-26] MEDS: DAKINS 0.0125%(1/40) 473 ML SOLUTION TP SCH ×3 (09:00→22:34)
--- NOTE | 2018-07-26 09:23 | PN ---
DATE: 07/26/2018 SUBJECTIVE: The patient is stable, no events overnight. No fevers, chills, nausea, or vomiting. OBJECTIVE: VITAL SIGNS: Blood pressure is 119/65, respirations 20, pulse 89, temperature 97.8. HEENT: Head is normocephalic. NECK: Supple. HEART: Regular rate. LUNGS: Show diminished breath sounds at the base. ABDOMEN: Soft, nontender to palpation. No rebound or guarding. EXTREMITIES: Negative for clubbing, cyanosis, no edema, positive wounds on bilateral feet with dress ing clean, dry, and intact. DERMATOLOGIC: No rashes. MUSCULOSKELETAL: No joint effusion. NEUROLOGIC: No change in exam. MEDICATIONS: Reviewed. LABORATORY DATA: Reviewed. ASSESSMENT AND PLAN: 1. Nonoliguric acute kidney injury with previous baseline creatinine of around 1.2 to 1.3 mg/dL. Et iology of acute kidney injury is secondary to hemodynamics. Renal function is improving. At this po int, continue current treatment plan, supportive care, renally dose all medicines. 2. Anemia. Monitor hemoglobin and hematocrit levels. 3. Mineral bone disorder. Monitor calcium and phosphorus levels. 4. Bilateral gangrenous foot ulcers, osteomyelitis. Continue medical management. Followup with pod iatry. The patient is pending possible transmetatarsal amputation. 5. Diabetes. Continue current insulin regimen. 6. Neurogenic bladder. Continue to monitor. 7. Sepsis secondary to osteoarthritis. Continue current antibiotic regimen. 8. History of cerebrovascular accident. Continue medical management. 9. Chronic encephalopathy. Continue to observe. 10. Metabolic acidosis, improved, currently off Bicitra. Continue to monitor. Dictated By: PARI TRAN DO NR/NTS Conf#: [id number] DID#: [id number] CC: MELISSA MORRISSEY MD; BRET PARIKH MD;*EndCC*
[2018-07-26] MEDS: CEFEPIME 2GM/50 ML IVPB SCH ×2 (09:34→23:54)
[2018-07-26] MEDS: COLLAGENASE 5 GM (UD JAR) TOP SCH (09:34)
[2018-07-26] MEDS: EUCERIN 113 GM CR TOP SCH ×2 (09:35→22:33)
--- NOTE | 2018-07-26 12:36 | CONS ---
Assessment/Plan Assessment/Plan Assessment/Plan (Daily) Bilateral foot gangrene. Osteomyelitis. Diabetic ulceration with extensive tissue loss. History of stroke. Anemia. Diabetes type 2. Chronic kidney disease. PLAN: Patient at this time is holding off on surgery. Spoke with hospitalist and recommend discharge and follow up in outpatient setting. In the past we had discussions for surgical intervention for the gangrenous sites and wound areas. We also discussed that there will likely be multiple operative procedures to reach our goal of limb salvage. Discussed transmetatarsal amputation with an allograft mid left foot with digit amputation on the right with allograft application, debridement of ulcerations. Discussed also wound VAC application. Appreciated ID recommendations. Also recommended daily dressing changes with topical antibiotic ointments. Nursing recommendation is given. Consultation Date/Type/Reason Admit Date/Time July 21, 2018 at 20:31 Initial Consult Date Date/Time of Note DATE: 07/26/18 TIME: 12:36 24 HR Interval Summary Free Text/Dictation No acute events overnight. Exam/Review of Systems Exam Vitals Vital Signs Date Temp Pulse Resp B/P (MAP) Pulse Ox O2 O2 Flow FiO2 Time Delivery Rate 07/26/18 97.8 89 20 119/65 98 07:47 (83) 07/25/18 Room Air 15:34 Intake and Output 07/25/18 07/25/18 07/26/18 1515:00 23:00 07:00 IntakeIntake Total 600 ml 390 ml 1200 ml BalanceBalance 600 ml 390 ml 1200 ml Exam 2+ DP, PT, and popliteal pulse bilaterally. Slight malodor to bilateral feet. The patient with gangrenous toes to the left foot at the level of metatarsophalangeal joint and to the right 4th and fifth toes. There is an open amputation to the 3rd toe at the IPJ extensive ulceration volume plantar surface bilateral feet. Results Result Diagram: 07/25/18 0505 07/25/18 0505 Results 24hrs Laboratory Tests Test 07/25/18 13:00 07/25/18 17:43 07/25/18 20:58 07/26/18 08:36 Bedside Glucose 195 152 194 268 H Medications Medication Current Medications IV Flush (NS 3 ml) 3 ml PER PROTOCOL IV ; Start 07/21/18 at 20:30 Ondansetron HCl (Zofran Inj) 4 mg Q6H PRN IV NAUSEA/VOMITING; Start 07/21/18 at 20:30 Acetaminophen (Tylenol Tab) 650 mg Q6H PRN PO .PAIN 1-3 OR TEMP; Start 07/21/18 at 20:30 Morphine Sulfate (morphine) 2 mg Q4H PRN IV .SEVERE PAIN 7-10; Start 07/21/18 at 20:30 Docusate Sodium (Colace) 100 mg Q12H PRN PO .CONSTIPATION Last administered on 07/25/18 21:13; Admin Dose 100 MG; Start 07/21/18 at 20:30 Bisacodyl (Dulcolax) 5 mg DAILY PRN PO .CONSTIPATION Last administered on 07/24/18 16:17; Admin Dose 5 MG; Start 07/21/18 at 20:30 Carvedilol (Coreg) 25 mg BID PO Last administered on 07/26/18 08:41; Admin Dose 25 MG; Start 07/21/18 at 23:00 Nifedipine (Procardia Xl) 60 mg DAILY PO Last administered on 07/26/18 08:41; Admin Dose 60 MG; Start 07/22/18 at 09:00 Zinc Sulfate (Zinc Sulfate) 220 mg DAILY PO Last administered on 07/26/18 08:41; Admin Dose 220 MG; Start 07/22/18 at 09:00 Atorvastatin Calcium (Lipitor) 40 mg HS PO Last administered on 07/25/18 21:03; Admin Dose 40 MG; Start 07/21/18 at 23:21 Insulin Aspart (Novolog Insulin Pen) NOVOLOG *MILD* ALGORITHM WITH MEALS BEDTIME SC Last administered on 07/26/18 08:39; Admin Dose 4 UNIT; Start 07/22/18 at 08:00 Miscellaneous Information 1 ea NOTE XX ; Start 07/22/18 at 04:30 Glucose (Glutose) 15 gm Q15M PRN PO DECREASED GLUCOSE; Start 07/22/18 at 04:30 Glucose (Glutose) 22.5 gm Q15M PRN PO DECREASED GLUCOSE; Start 07/22/18 at 04:30 Dextrose (D50w Syringe) 25 ml Q15M PRN IV DECREASED GLUCOSE; Start 07/22/18 at 04:30 Dextrose (D50w Syringe) 50 ml Q15M PRN IV DECREASED GLUCOSE; Start 07/22/18 at 04:30 Glucagon (Glucagen) 1 mg Q15M PRN IM DECREASED GLUCOSE; Start 07/22/18 at 04:30 Glucose (Glutose) 15 gm Q15M PRN BUCCAL DECREASED GLUCOSE; Start 07/22/18 at 04:30 Collagenase (Santyl) 1 applic QAM TOP Last administered on 07/26/18 09:34; Admin Dose 1 APPLIC; Start 07/22/18 at 10:30 Gentamicin Sulfate (Gentamicin 0.1% Oint) 1 applic HS TOP Last administered on 07/25/18 21:07; Admin Dose 1 APPLIC; Start 07/22/18 at 21:00 Multi-Ingredient Ointment (Eucerin Cream) 1 applic BID TOP Last administered on 07/26/18 09:35; Admin Dose 1 APPLIC; Start 07/22/18 at 22:00 Sodium Hypochlorite (Dakins Diluted ()) 1 applic BID TP Last administered on 07/26/18 11:06; Admin Dose 1 APPLIC; Start 07/23/18 at 15:00 Insulin Glargine (Lantus) 9 units DAILY@2000 SC Last administered on 07/25/18 21:12; Admin Dose 9 UNITS; Start 07/25/18 at 20:00 Cefepime HCl 50 ml @ 100 mls/hr Q12 IVPB Last administered on 07/26/18 09:34; Admin Dose 100 MLS/HR; Start 07/25/18 at 18:00 Tigecycline 50 mg/ Sodium Chloride 100 ml @ 200 mls/hr Q12H IVPB Last administered on 07/26/18 08:44; Admin Dose 200 MLS/HR; Start 07/25/18 at 20:00 ANANT BROUSSARD DPGonzalo July 26, 2018 12:36
--- NOTE | 2018-07-26 12:52 | CONS ---
Assessment/Plan Assessment/Plan Hospital Course (Demo Recall) No acute changes patient is awake looks comfortable no fevers overnight no labs today Antimicrobials: Tygacil, cefepime Microbiology: Wound culture grew multidrug-resistant Acinetobacter, ente rococcus, E. coli Physical examination: Well-developed well-nourished middle-aged woman who is rossy rt in no distress. Head atraumatic normocephalic sclera nonicteric. Neck is supple. Chest rise symmetrical, breath sounds clear. Heart: S1-S2. Abdomen soft bowel sounds present. Extremities with bilateral lower extremities dressing clean dry and intact Assessment: 1. Bilateral lower extremities gangrene/Osteomyelitis 2. Chronic kidney disease, history of hemodialysis 3. Diabetes 4. RUE PICC Plan: Stable, podiatry rec-s noted, pending dc home on current abx to complete 6 weeks, pt will require multiple surgical procedures, poss TMA if she agrees DW pt Consultation Date/Type/Reason Admit Date/Time July 21, 2018 at 20:31 Initial Consult Date Type of Consult id Date/Time of Note DATE: 07/26/18 TIME: 12:48 Exam/Review of Systems Exam Vitals Vital Signs Date Temp Pulse Resp B/P (MAP) Pulse Ox O2 O2 Flow FiO2 Time Delivery Rate 07/26/18 97.8 89 20 119/65 98 07:47 (83) 07/25/18 Room Air 15:34 Intake and Output 07/25/18 07/25/18 07/26/18 1515:00 23:00 07:00 IntakeIntake Total 600 ml 390 ml 1200 ml BalanceBalance 600 ml 390 ml 1200 ml Results Result Diagram: 07/25/18 0505 07/25/18 0505 Results 24hrs Laboratory Tests Test 07/25/18 13:00 07/25/18 17:43 07/25/18 20:58 07/26/18 08:36 Bedside Glucose 195 152 194 268 H Medications Medication Current Medications IV Flush (NS 3 ml) 3 ml PER PROTOCOL IV ; Start 07/21/18 at 20:30 Ondansetron HCl (Zofran Inj) 4 mg Q6H PRN IV NAUSEA/VOMITING; Start 07/21/18 at 20:30 Acetaminophen (Tylenol Tab) 650 mg Q6H PRN PO .PAIN 1-3 OR TEMP; Start 07/21/18 at 20:30 Morphine Sulfate (morphine) 2 mg Q4H PRN IV .SEVERE PAIN 7-10; Start 07/21/18 at 20:30 Docusate Sodium (Colace) 100 mg Q12H PRN PO .CONSTIPATION Last administered on 07/25/18 21:13; Admin Dose 100 MG; Start 07/21/18 at 20:30 Bisacodyl (Dulcolax) 5 mg DAILY PRN PO .CONSTIPATION Last administered on 07/24/18 16:17; Admin Dose 5 MG; Start 07/21/18 at 20:30 Carvedilol (Coreg) 25 mg BID PO Last administered on 07/26/18 08:41; Admin Dose 25 MG; Start 07/21/18 at 23:00 Nifedipine (Procardia Xl) 60 mg DAILY PO Last administered on 07/26/18 08:41; Admin Dose 60 MG; Start 07/22/18 at 09:00 Zinc Sulfate (Zinc Sulfate) 220 mg DAILY PO Last administered on 07/26/18 08:41; Admin Dose 220 MG; Start 07/22/18 at 09:00 Atorvastatin Calcium (Lipitor) 40 mg HS PO Last administered on 07/25/18 21:03; Admin Dose 40 MG; Start 07/21/18 at 23:21 Insulin Aspart (Novolog Insulin Pen) NOVOLOG *MILD* ALGORITHM WITH MEALS BEDTIME SC Last administered on 07/26/18 08:39; Admin Dose 4 UNIT; Start 07/22/18 at 08:00 Miscellaneous Information 1 ea NOTE XX ; Start 07/22/18 at 04:30 Glucose (Glutose) 15 gm Q15M PRN PO DECREASED GLUCOSE; Start 07/22/18 at 04:30 Glucose (Glutose) 22.5 gm Q15M PRN PO DECREASED GLUCOSE; Start 07/22/18 at 04:30 Dextrose (D50w Syringe) 25 ml Q15M PRN IV DECREASED GLUCOSE; Start 07/22/18 at 04:30 Dextrose (D50w Syringe) 50 ml Q15M PRN IV DECREASED GLUCOSE; Start 07/22/18 at 04:30 Glucagon (Glucagen) 1 mg Q15M PRN IM DECREASED GLUCOSE; Start 07/22/18 at 04:30 Glucose (Glutose) 15 gm Q15M PRN BUCCAL DECREASED GLUCOSE; Start 07/22/18 at 04:30 Collagenase (Santyl) 1 applic QAM TOP Last administered on 07/26/18 09:34; Admin Dose 1 APPLIC; Start 07/22/18 at 10:30 Gentamicin Sulfate (Gentamicin 0.1% Oint) 1 applic HS TOP Last administered on 07/25/18 21:07; Admin Dose 1 APPLIC; Start 07/22/18 at 21:00 Multi-Ingredient Ointment (Eucerin Cream) 1 applic BID TOP Last administered on 07/26/18 09:35; Admin Dose 1 APPLIC; Start 07/22/18 at 22:00 Sodium Hypochlorite (Dakins Diluted ()) 1 applic BID TP Last administered on 07/26/18 11:06; Admin Dose 1 APPLIC; Start 07/23/18 at 15:00 Insulin Glargine (Lantus) 9 units DAILY@2000 SC Last administered on 07/25/18 21:12; Admin Dose 9 UNITS; Start 07/25/18 at 20:00 Cefepime HCl 50 ml @ 100 mls/hr Q12 IVPB Last administered on 07/26/18 09:34; Admin Dose 100 MLS/HR; Start 07/25/18 at 18:00 Tigecycline 50 mg/ Sodium Chloride 100 ml @ 200 mls/hr Q12H IVPB Last administered on 07/26/18 08:44; Admin Dose 200 MLS/HR; Start 07/25/18 at 20:00 Sodium Biphosphate/ Sodium Phosphate (Fleet Enema) 133 ml DAILY PRN [place] CONSTIPATION; Start 07/26/18 at 13:00; Status SEBASTIAN CHAHAL NP July 26, 2018 12:52
[2018-07-26 13:36] VITALS: BP 121/70; PULSE 85; RESP 20
--- NOTE | 2018-07-26 14:43 | PN ---
Date/Time of Note Date/Time of Note DATE: 07/26/18 TIME: 14:42 Assessment/Plan VTE Prophylaxis Risk score (from Nsg)>0 risk: 4 Pharmacological prophylaxis: NA/contraindicated Pharm contraindication: surgical contra Lines/Catheters Urinary Cath still in place: No Assessment/Plan Hospital Course : 48 yo female with h/o critical illness for which received vasopressors and developed digital ischemia who recovered but developed gangrene of toes and finger who was referred to hospital for evaluation of leukocytosis. Found to have OM of feet - Abx per ID - surgical management per podiatry but vascular surgery will evaluate today for second opinion DMII: - sliding scale insulin hypertension: - continue nifedipine, coreg Result Diagram: 07/25/18 0505 07/25/18 0505 Results 24hrs Laboratory Tests Test 07/25/18 17:43 07/25/18 20:58 07/26/18 08:36 07/26/18 13:00 Bedside Glucose 152 194 268 H 117 Subjective 24 Hr Interval Summary Constitutional: no complaints Exam/Review of Systems Exam Vitals Vital Signs Date Temp Pulse Resp B/P (MAP) Pulse Ox O2 O2 Flow FiO2 Time Delivery Rate 07/26/18 98.4 85 20 121/70 98 13:36 (87) 07/25/18 Room Air 15:34 Intake and Output 07/25/18 07/25/18 07/26/18 1515:00 23:00 07:00 IntakeIntake Total 600 ml 390 ml 1200 ml BalanceBalance 600 ml 390 ml 1200 ml Constitutional: alert, oriented Respiratory: clear to auscultation Cardiovascular: regular rate and rhythm Gastrointestinal: soft; No distended Musculoskeletal: No nl extremities to inspection Results Results 24hrs Laboratory Tests Test 07/25/18 17:43 07/25/18 20:58 07/26/18 08:36 07/26/18 13:00 Bedside Glucose 152 194 268 H 117 Medications Medication Current Medications IV Flush (NS 3 ml) 3 ml PER PROTOCOL IV ; Start 07/21/18 at 20:30 Ondansetron HCl (Zofran Inj) 4 mg Q6H PRN IV NAUSEA/VOMITING; Start 07/21/18 at 20:30 Acetaminophen (Tylenol Tab) 650 mg Q6H PRN PO .PAIN 1-3 OR TEMP; Start 07/21/18 at 20:30 Morphine Sulfate (morphine) 2 mg Q4H PRN IV .SEVERE PAIN 7-10; Start 07/21/18 at 20:30 Docusate Sodium (Colace) 100 mg Q12H PRN PO .CONSTIPATION Last administered on 07/25/18 21:13; Admin Dose 100 MG; Start 07/21/18 at 20:30 Bisacodyl (Dulcolax) 5 mg DAILY PRN PO .CONSTIPATION Last administered on 07/24/18 16:17; Admin Dose 5 MG; Start 07/21/18 at 20:30 Carvedilol (Coreg) 25 mg BID PO Last administered on 07/26/18 08:41; Admin Dose 25 MG; Start 07/21/18 at 23:00 Nifedipine (Procardia Xl) 60 mg DAILY PO Last administered on 07/26/18 08:41; Admin Dose 60 MG; Start 07/22/18 at 09:00 Zinc Sulfate (Zinc Sulfate) 220 mg DAILY PO Last administered on 07/26/18 08:41; Admin Dose 220 MG; Start 07/22/18 at 09:00 Atorvastatin Calcium (Lipitor) 40 mg HS PO Last administered on 07/25/18 21:03; Admin Dose 40 MG; Start 07/21/18 at 23:21 Insulin Aspart (Novolog Insulin Pen) NOVOLOG *MILD* ALGORITHM WITH MEALS BEDTIME SC Last administered on 07/26/18 08:39; Admin Dose 4 UNIT; Start 07/22/18 at 08:00 Miscellaneous Information 1 ea NOTE XX ; Start 07/22/18 at 04:30 Glucose (Glutose) 15 gm Q15M PRN PO DECREASED GLUCOSE; Start 07/22/18 at 04:30 Glucose (Glutose) 22.5 gm Q15M PRN PO DECREASED GLUCOSE; Start 07/22/18 at 04:30 Dextrose (D50w Syringe) 25 ml Q15M PRN IV DECREASED GLUCOSE; Start 07/22/18 at 04:30 Dextrose (D50w Syringe) 50 ml Q15M PRN IV DECREASED GLUCOSE; Start 07/22/18 at 04:30 Glucagon (Glucagen) 1 mg Q15M PRN IM DECREASED GLUCOSE; Start 07/22/18 at 04:30 Glucose (Glutose) 15 gm Q15M PRN BUCCAL DECREASED GLUCOSE; Start 07/22/18 at 04:30 Collagenase (Santyl) 1 applic QAM TOP Last administered on 07/26/18 09:34; Admin Dose 1 APPLIC; Start 07/22/18 at 10:30 Gentamicin Sulfate (Gentamicin 0.1% Oint) 1 applic HS TOP Last administered on 07/25/18 21:07; Admin Dose 1 APPLIC; Start 07/22/18 at 21:00 Multi-Ingredient Ointment (Eucerin Cream) 1 applic BID TOP Last administered on 07/26/18 09:35; Admin Dose 1 APPLIC; Start 07/22/18 at 22:00 Sodium Hypochlorite (Dakins Diluted ()) 1 applic BID TP Last administered on 07/26/18 11:06; Admin Dose 1 APPLIC; Start 07/23/18 at 15:00 Insulin Glargine (Lantus) 9 units DAILY@2000 SC Last administered on 07/25/18 21:12; Admin Dose 9 UNITS; Start 07/25/18 at 20:00 Cefepime HCl 50 ml @ 100 mls/hr Q12 IVPB Last administered on 07/26/18 09:34; Admin Dose 100 MLS/HR; Start 07/25/18 at 18:00 Tigecycline 50 mg/ Sodium Chloride 100 ml @ 200 mls/hr Q12H IVPB Last administered on 07/26/18 08:44; Admin Dose 200 MLS/HR; Start 07/25/18 at 20:00 Sodium Biphosphate/ Sodium Phosphate (Fleet Enema) 133 ml DAILY PRN [place] CONSTIPATION; Start 07/26/18 at 13:00 ANEL COTA July 26, 2018 14:43
[2018-07-26] MEDS: NA PHOSPHATE/BIPHOS 133 ML ENEMA PR PRN (16:02)
[2018-07-26 20:00] VITALS: BP 137/79; PULSE 85; RESP 18
[2018-07-26] MEDS: ATORVASTATIN 40 MG TAB PO SCH (22:25)
[2018-07-26] MEDS: INSULIN GLARGINE [LANTus] (100 UNITS/ML) SYG SC SCH (22:28)
[2018-07-26] MEDS: GENTAMICIN 0.1% 15 GM OINT TOP SCH (22:34)
[2018-07-27 02:00] VITALS: BP 124/72; PULSE 76; RESP 17
[2018-07-27 07:56] VITALS: BP 120/71; PULSE 75; RESP 20
[2018-07-27] MEDS: INSULIN ASPART [NOVOLOG] 3 ML PEN SC SCH ×4 (08:00→20:22)
[2018-07-27] MEDS: ZINC SULFATE 220 MG CAP PO SCH (08:11)
[2018-07-27] MEDS: NIFEdipine (XL) 60 MG TAB PO SCH (08:12)
[2018-07-27] MEDS: EUCERIN 113 GM CR TOP SCH ×2 (08:13→20:22)
[2018-07-27] MEDS: TIGECYCLINE 50 MG in SOD CHLORIDE 0.9% 100 ML IVPB SCH ×2 (08:13→20:11)
[2018-07-27] MEDS: COLLAGENASE 5 GM (UD JAR) TOP SCH (08:13)
[2018-07-27] MEDS: DAKINS 0.0125%(1/40) 473 ML SOLUTION TP SCH ×2 (08:17→21:00)
--- NOTE | 2018-07-27 09:02 | PN ---
DATE: 07/27/2018 SUBJECTIVE: The patient is stable, no events overnight. OBJECTIVE: VITAL SIGNS: Blood pressure is 120/71, pulse 75, respirations 20, temperature 98.0. HEENT: Head is normocephalic. NECK: Supple. HEART: Regular rate. LUNGS: Show diminished breath sounds at the base. ABDOMEN: Soft, nontender to palpation without rebound or guarding. EXTREMITIES: Negative for clubbing, cyanosis, no edema. DERMATOLOGIC: No rashes. MUSCULOSKELETAL: The patient has noted wounds on lower extremity with dressing clean, dry, and intac t. No joint effusion. NEUROLOGIC: No change in exam. MEDICATIONS: Reviewed. LABORATORY DATA: From 07/27/2018 was reviewed. ASSESSMENT AND PLAN: 1. Nonoliguric acute kidney injury on top of chronic kidney disease with baseline creatinine of arou nd 1.2 to 1.3 mg/dL. Etiology of acute kidney injury is secondary to hemodynamics. Renal function i s stable. Continue current treatment plan, supportive care, renally dose all medications. 2. Anemia. Continue to monitor hemoglobin and hematocrit levels. 3. Mineral bone disorder, monitor calcium and phosphorus levels. 4. Bilateral gangrenous foot ulcers, osteomyelitis. Continue medical management. Follow up with po tatyana. Followup with surgery. Continue antibiotics. 5. Diabetes. Continue current insulin regimen. 6. Neurogenic bladder. Continue to monitor. 7. Sepsis secondary to osteomyelitis. Continue current antibiotic regimen. 8. History of cerebrovascular accident. Continue current treatment plan. 9. Chronic encephalopathy. Continue to observe. Dictated By: PARI TRAN DO NR/NTS Conf#: [id number] DID#: [id number] CC: ANEL COTA MD; MELISSA MORRISSEY MD;*EndCC*
[2018-07-27] MEDS: CEFEPIME 2GM/50 ML IVPB SCH ×2 (09:35→21:32)
--- NOTE | 2018-07-27 11:25 | CONS ---
Assessment/Plan Assessment/Plan Hospital Course (Demo Recall) No acute events, all noted Antimicrobials: Tygacil, cefepime Microbiology: Wound culture grew multidrug-resistant Acinetobacter, enterococcus, E. coli Physical examination: Well-developed well-nourished middle-aged woman who is alert in no distress. Head atraumatic normocephalic sclera nonicteric. Neck is supple. Chest rise symmetrical, breath sounds clear. Heart: S1-S2. Abdomen soft bowel sounds present. Extremities with bilateral lower extremities dressing clean dry and intact Assessment: 1. Bilateral lower extremities gangrene/Osteomyelitis 2. Chronic kidney disease, history of hemodialysis 3. Diabetes 4. RUE PICC Plan: Remains stable, podiatry rec-s noted, pending dc home on current abx to complete 6 weeks, pt will require multiple surgical procedures, poss TMA if she agrees, will await for vascular rec-s DW Dr Rice Consultation Date/Type/Reason Admit Date/Time July 21, 2018 at 20:31 Initial Consult Date Type of Consult id Date/Time of Note DATE: 07/27/18 TIME: 11:24 Exam/Review of Systems Exam Vitals Vital Signs Date Temp Pulse Resp B/P (MAP) Pulse Ox O2 O2 Flow FiO2 Time Delivery Rate 07/27/18 98.0 75 20 120/71 100 07:56 (87) 07/25/18 Room Air 15:34 Intake and Output 07/26/18 07/26/18 07/27/18 1515:00 23:00 07:00 IntakeIntake Total 630 ml 1580 ml 50 ml OutputOutput Total 850 ml BalanceBalance -220 ml 1580 ml 50 ml Results Result Diagram: 07/27/1852107/27/18 05 Results 24hrs Laboratory Tests Test 07/26/18 13:00 07/26/18 15:17 07/26/18 17:23 07/26/18 22:21 Bedside Glucose 117 108 127 112 Test 07/27/18 05:22 07/27/18 08:10 White Blood Count 10.2 Red Blood Count 2.87 L Hemoglobin 7.8 L Hematocrit 25.1 L Mean Corpuscular Volume 87.5 Mean Corpuscular 27.2 L Hemoglobin Mean Corpuscular 31.1 L Hemoglobin Concent Red Cell Distribution 15.0 H Width Platelet Count 253 Mean Platelet Volume 11.1 H Immature Granulocytes % 0.700 H Neutrophils % 67.1 Lymphocytes % 16.5 Monocytes % 7.8 Eosinophils % 7.3 H Basophils % 0.6 Nucleated Red Blood 0.0 Cells % Immature Granulocytes # 0.070 H Neutrophils # 6.8 Lymphocytes # 1.7 Monocytes # 0.8 Eosinophils # 0.7 H Basophils # 0.1 Nucleated Red Blood 0.0 Cells # Sodium Level 141 Potassium Level 4.2 Chloride Level 114 H Carbon Dioxide Level 22 Anion Gap 5 Blood Urea Nitrogen 45 H Creatinine 1.12 H Est Glomerular Filtrat 52 L Rate mL/min Glucose Level 105 Calcium Level 8.5 Phosphorus Level 5.3 H Magnesium Level 1.8 Bedside Glucose 123 Medications Medication Current Medications IV Flush (NS 3 ml) 3 ml PER PROTOCOL IV ; Start 07/21/18 at 20:30 Ondansetron HCl (Zofran Inj) 4 mg Q6H PRN IV NAUSEA/VOMITING; Start 07/21/18 at 20:30 Acetaminophen (Tylenol Tab) 650 mg Q6H PRN PO .PAIN 1-3 OR TEMP; Start 07/21/18 at 20:30 Morphine Sulfate (morphine) 2 mg Q4H PRN IV .SEVERE PAIN 7-10; Start 07/21/18 at 20:30 Docusate Sodium (Colace) 100 mg Q12H PRN PO .CONSTIPATION Last administered on 07/25/18 21:13; Admin Dose 100 MG; Start 07/21/18 at 20:30 Bisacodyl (Dulcolax) 5 mg DAILY PRN PO .CONSTIPATION Last administered on 07/24/18 16:17; Admin Dose 5 MG; Start 07/21/18 at 20:30 Carvedilol (Coreg) 25 mg BID PO Last administered on 07/27/18 08:12; Admin Dose 25 MG; Start 07/21/18 at 23:00 Nifedipine (Procardia Xl) 60 mg DAILY PO Last administered on 07/27/18 08:12; Admin Dose 60 MG; Start 07/22/18 at 09:00 Zinc Sulfate (Zinc Sulfate) 220 mg DAILY PO Last administered on 07/27/18 08:11; Admin Dose 220 MG; Start 07/22/18 at 09:00 Atorvastatin Calcium (Lipitor) 40 mg HS PO Last administered on 07/26/18 22:25; Admin Dose 40 MG; Start 07/21/18 at 23:21 Insulin Aspart (Novolog Insulin Pen) NOVOLOG *MILD* ALGORITHM WITH MEALS BEDTIME SC Last administered on 07/26/18 08:39; Admin Dose 4 UNIT; Start 07/22/18 at 08:00 Miscellaneous Information 1 ea NOTE XX ; Start 07/22/18 at 04:30 Glucose (Glutose) 15 gm Q15M PRN PO DECREASED GLUCOSE; Start 07/22/18 at 04:30 Glucose (Glutose) 22.5 gm Q15M PRN PO DECREASED GLUCOSE; Start 07/22/18 at 04:30 Dextrose (D50w Syringe) 25 ml Q15M PRN IV DECREASED GLUCOSE; Start 07/22/18 at 04:30 Dextrose (D50w Syringe) 50 ml Q15M PRN IV DECREASED GLUCOSE; Start 07/22/18 at 04:30 Glucagon (Glucagen) 1 mg Q15M PRN IM DECREASED GLUCOSE; Start 07/22/18 at 04:30 Glucose (Glutose) 15 gm Q15M PRN BUCCAL DECREASED GLUCOSE; Start 07/22/18 at 04:30 Collagenase (Santyl) 1 applic QAM TOP Last administered on 07/27/18 08:13; Admin Dose 1 APPLIC; Start 07/22/18 at 10:30 Gentamicin Sulfate (Gentamicin 0.1% Oint) 1 applic HS TOP Last administered on 07/26/18 22:34; Admin Dose 1 APPLIC; Start 07/22/18 at 21:00 Multi-Ingredient Ointment (Eucerin Cream) 1 applic BID TOP Last administered on 07/27/18 08:13; Admin Dose 1 APPLIC; Start 07/22/18 at 22:00 Sodium Hypochlorite (Dakins Diluted (/40)) 1 applic BID TP Last administered on 07/27/18 08:17; Admin Dose 1 APPLIC; Start 07/23/18 at 15:00 Insulin Glargine (Lantus) 9 units DAILY@2000 SC Last administered on 07/26/18 22:28; Admin Dose 9 UNITS; Start 07/25/18 at 20:00 Cefepime HCl 50 ml @ 100 mls/hr Q12 IVPB Last administered on 07/27/18 09:35; Admin Dose 100 MLS/HR; Start 07/25/18 at 18:00 Tigecycline 50 mg/ Sodium Chloride 100 ml @ 200 mls/hr Q12H IVPB Last administered on 07/27/18at 08:13; Admin Dose 200 MLS/HR; Start 07/25/18 at 20:00 Sodium Biphosphate/ Sodium Phosphate (Fleet Enema) 133 ml DAILY PRN [place] CONSTIPATION Last administered on 07/26/18at 16:02; Admin Dose 133 ML; Start 07/26/18 at 13:00 SEBASTIAN BARRETO NP July 27, 2018 11:25
[2018-07-27 13:15] VITALS: BP 135/76; PULSE 81; RESP 20
--- NOTE | 2018-07-27 13:53 | PN ---
Date/Time of Note Date/Time of Note DATE: 07/27/18 TIME: 13:53 Assessment/Plan VTE Prophylaxis Risk score (from Nsg)>0 risk: 4 Pharmacological prophylaxis: NA/contraindicated Pharm contraindication: surgical contra Lines/Catheters Urinary Cath still in place: No Assessment/Plan Hospital Course 48 yo female with h/o critical illness for which received vasopressors and developed digital ischemia who recovered but developed gangrene of toes and finger who was referred to hospital for evaluation of leukocytosis. Found to have OM of feet - Abx per ID - surgical management per podiatry but vascular surgery will evaluate for second opinion DMII: - sliding scale insulin hypertension: - continue nifedipine, coreg Result Diagram: 07/27/1852107/27/18521 Results 24hrs Laboratory Tests Test 07/26/18 15:17 07/26/18 17:23 07/26/18 22:21 07/27/18 05:22 Bedside Glucose 108 127 112 White Blood Count 10.2 Red Blood Count 2.87 L Hemoglobin 7.8 L Hematocrit 25.1 L Mean Corpuscular Volume 87.5 Mean Corpuscular 27.2 L Hemoglobin Mean Corpuscular 31.1 L Hemoglobin Concent Red Cell Distribution 15.0 H Width Platelet Count 253 Mean Platelet Volume 11.1 H Immature Granulocytes % 0.700 H Neutrophils % 67.1 Lymphocytes % 16.5 Monocytes % 7.8 Eosinophils % 7.3 H Basophils % 0.6 Nucleated Red Blood 0.0 Cells % Immature Granulocytes # 0.070 H Neutrophils # 6.8 Lymphocytes # 1.7 Monocytes # 0.8 Eosinophils # 0.7 H Basophils # 0.1 Nucleated Red Blood 0.0 Cells # Sodium Level 141 Potassium Level 4.2 Chloride Level 114 H Carbon Dioxide Level 22 Anion Gap 5 Blood Urea Nitrogen 45 H Creatinine 1.12 H Est Glomerular Filtrat 52 L Rate mL/min Glucose Level 105 Calcium Level 8.5 Phosphorus Level 5.3 H Magnesium Level 1.8 Test 07/27/18 08:10 07/27/18 12:17 Bedside Glucose 123 151 Subjective 24 Hr Interval Summary Constitutional: no complaints Exam/Review of Systems Exam Vitals Vital Signs Date Temp Pulse Resp B/P (MAP) Pulse Ox O2 O2 Flow FiO2 Time Delivery Rate 07/27/18 98.3 81 20 135/76 98 13:15 (95) 07/25/18 Room Air 15:34 Intake and Output 07/26/18 07/26/18 07/27/18 1515:00 23:00 07:00 IntakeIntake Total 630 ml 1580 ml 50 ml OutputOutput Total 850 ml BalanceBalance -220 ml 1580 ml 50 ml Constitutional: alert, oriented Respiratory: clear to auscultation Cardiovascular: regular rate and rhythm Gastrointestinal: soft; No distended Musculoskeletal: No nl extremities to inspection Results Results 24hrs Laboratory Tests Test 07/26/18 15:17 07/26/18 17:23 07/26/18 22:21 07/27/18 05:22 Bedside Glucose 108 127 112 White Blood Count 10.2 Red Blood Count 2.87 L Hemoglobin 7.8 L Hematocrit 25.1 L Mean Corpuscular Volume 87.5 Mean Corpuscular 27.2 L Hemoglobin Mean Corpuscular 31.1 L Hemoglobin Concent Red Cell Distribution 15.0 H Width Platelet Count 253 Mean Platelet Volume 11.1 H Immature Granulocytes % 0.700 H Neutrophils % 67.1 Lymphocytes % 16.5 Monocytes % 7.8 Eosinophils % 7.3 H Basophils % 0.6 Nucleated Red Blood 0.0 Cells % Immature Granulocytes # 0.070 H Neutrophils # 6.8 Lymphocytes # 1.7 Monocytes # 0.8 Eosinophils # 0.7 H Basophils # 0.1 Nucleated Red Blood 0.0 Cells # Sodium Level 141 Potassium Level 4.2 Chloride Level 114 H Carbon Dioxide Level 22 Anion Gap 5 Blood Urea Nitrogen 45 H Creatinine 1.12 H Est Glomerular Filtrat 52 L Rate mL/min Glucose Level 105 Calcium Level 8.5 Phosphorus Level 5.3 H Magnesium Level 1.8 Test 07/27/18 08:10 07/27/18 12:17 Bedside Glucose 123 151 Medications Medication Current Medications IV Flush (NS 3 ml) 3 ml PER PROTOCOL IV ; Start 07/21/18 at 20:30 Ondansetron HCl (Zofran Inj) 4 mg Q6H PRN IV NAUSEA/VOMITING; Start 07/21/18 at 20:30 Acetaminophen (Tylenol Tab) 650 mg Q6H PRN PO .PAIN 1-3 OR TEMP; Start 07/21/18 at 20:30 Morphine Sulfate (morphine) 2 mg Q4H PRN IV .SEVERE PAIN 7-10; Start 07/21/18 at 20:30 Docusate Sodium (Colace) 100 mg Q12H PRN PO .CONSTIPATION Last administered on 07/25/18 21:13; Admin Dose 100 MG; Start 07/21/18 at 20:30 Bisacodyl (Dulcolax) 5 mg DAILY PRN PO .CONSTIPATION Last administered on 07/24/18 16:17; Admin Dose 5 MG; Start 07/21/18 at 20:30 Carvedilol (Coreg) 25 mg BID PO Last administered on 07/27/18 08:12; Admin Dose 25 MG; Start 07/21/18 at 23:00 Nifedipine (Procardia Xl) 60 mg DAILY PO Last administered on 07/27/18 08:12; Admin Dose 60 MG; Start 07/22/18 at 09:00 Zinc Sulfate (Zinc Sulfate) 220 mg DAILY PO Last administered on 07/27/18 08:11; Admin Dose 220 MG; Start 07/22/18 at 09:00 Atorvastatin Calcium (Lipitor) 40 mg HS PO Last administered on 07/26/18 22:25; Admin Dose 40 MG; Start 07/21/18 at 23:21 Insulin Aspart (Novolog Insulin Pen) NOVOLOG *MILD* ALGORITHM WITH MEALS BEDTIME SC Last administered on 07/27/18 12:21; Admin Dose 1 UNIT; Start 07/22/18 at 08:00 Miscellaneous Information 1 ea NOTE XX ; Start 07/22/18 at 04:30 Glucose (Glutose) 15 gm Q15M PRN PO DECREASED GLUCOSE; Start 07/22/18 at 04:30 Glucose (Glutose) 22.5 gm Q15M PRN PO DECREASED GLUCOSE; Start 07/22/18 at 04:30 Dextrose (D50w Syringe) 25 ml Q15M PRN IV DECREASED GLUCOSE; Start 07/22/18 at 04:30 Dextrose (D50w Syringe) 50 ml Q15M PRN IV DECREASED GLUCOSE; Start 07/22/18 at 04:30 Glucagon (Glucagen) 1 mg Q15M PRN IM DECREASED GLUCOSE; Start 07/22/18 at 04:30 Glucose (Glutose) 15 gm Q15M PRN BUCC[place] DECREASED GLUCOSE; Start 07/22/18 at 04:30 Collagenase (Santyl) 1 applic QAM TOP Last administered on 07/27/18 08:13; Admin Dose 1 APPLIC; Start 07/22/18 at 10:30 Gentamicin Sulfate (Gentamicin 0.1% Oint) 1 applic HS TOP Last administered on 07/26/18 22:34; Admin Dose 1 APPLIC; Start 07/22/18 at 21:00 Multi-Ingredient Ointment (Eucerin Cream) 1 applic BID TOP Last administered on 07/27/18 08:13; Admin Dose 1 APPLIC; Start 07/22/18 at 22:00 Sodium Hypochlorite (Dakins Diluted ()) 1 applic BID TP Last administered on 07/27/18 08:17; Admin Dose 1 APPLIC; Start 07/23/18 at 15:00 Insulin Glargine (Lantus) 9 units DAILY@2000 SC Last administered on 07/26/18 22:28; Admin Dose 9 UNITS; Start 07/25/18 at 20:00 Cefepime HCl 50 ml @ 100 mls/hr Q12 IVPB Last administered on 07/27/18 09:35; Admin Dose 100 MLS/HR; Start 07/25/18 at 18:00 Tigecycline 50 mg/ Sodium Chloride 100 ml @ 200 mls/hr Q12H IVPB Last administered on 07/27/18 08:13; Admin Dose 200 MLS/HR; Start 07/25/18 at 20:00 Sodium Biphosphate/ Sodium Phosphate (Fleet Enema) 133 ml DAILY PRN [place] NSTIPATION Last administered on 07/26/18 16:02; Admin Dose 133 ML; Start 07/26/18 at 13:00 ANEL COTA July 27, 2018 13:53
[2018-07-27 19:44] VITALS: BP 139/68; PULSE 81; RESP 18
[2018-07-27] MEDS: ATORVASTATIN 40 MG TAB PO SCH (20:15)
[2018-07-27] MEDS: INSULIN GLARGINE [LANTus] (100 UNITS/ML) SYG SC SCH (20:21)
[2018-07-27] MEDS: GENTAMICIN 0.1% 15 GM OINT TOP SCH (21:00)
--- NOTE | 2018-07-27 22:50 | PN ---
Date/Time of Note Date/Time of Note DATE: 07/27/18 TIME: 22:45 Assessment/Plan Lines/Catheters [place] in Place (from [facility]): No Assessment/Plan Chief Complaint/Hosp Course -Secondary consultation has been requested for possible limb salvage intervention. As the patient has adequate perfusion to the lower leg (palpable pedal pulses) she is a candidate for skin graft substitute in order to cover the wound defect. I have had a thorough conversation with our patient and at the Bedside and explained clearly these will be heroic measures given the extent of tissue loss and still may end up with bilateral below knee amputations. -Will also discuss the plan with our podiatry colleagues should patient plan to proceed Exam/Review of Systems Vital Signs Vitals Vital Signs Date Temp Pulse Resp B/P (MAP) Pulse Ox O2 O2 Flow FiO2 Time Delivery Rate 07/27/18 99.0 81 18 139/68 96 19:44 (91) 07/25/18 Room Air 15:34 Intake and Output 07/26/18 07/26/18 07/27/18 1515:00 23:00 07:00 IntakeIntake Total 630 ml 1580 ml 50 ml OutputOutput Total 850 ml BalanceBalance -220 ml 1580 ml 50 ml Results Result Diagram: 07/27/18 0522 07/27/18 0522 SREEDHAR VILLEGAS MD July 27, 2018 22:50
[2018-07-28] MEDS: DAKINS 0.0125%(1/40) 473 ML SOLUTION TP SCH ×2 (00:50→08:32)
[2018-07-28] MEDS: GENTAMICIN 0.1% 15 GM OINT TOP SCH (00:51)
[2018-07-28 01:05] VITALS: BP 132/76; PULSE 85; RESP 18
[2018-07-28] MEDS: INSULIN ASPART [NOVOLOG] 3 ML PEN SC SCH ×4 (08:00→21:00)
[2018-07-28 08:09] VITALS: BP 135/79; PULSE 78; RESP 17
[2018-07-28] MEDS: COLLAGENASE 5 GM (UD JAR) TOP SCH (08:31)
[2018-07-28] MEDS: ZINC SULFATE 220 MG CAP PO SCH (08:33)
[2018-07-28] MEDS: NIFEdipine (XL) 60 MG TAB PO SCH (08:33)
--- NOTE | 2018-07-28 08:36 | PN ---
DATE: 07/28/2018 SUBJECTIVE: The patient is stable. No events overnight. No fevers, chills, nausea, or vomiting. OBJECTIVE: VITAL SIGNS: Blood pressure is 135/79, respirations 17, pulse 78, temperature 98.1. HEENT: Head is normocephalic. NECK: Supple. HEART: Regular rate. LUNGS: Show diminished breath sounds at the base. ABDOMEN: Soft, nontender to palpation without rebound or guarding. EXTREMITIES: Negative for clubbing, cyanosis. Positive wounds with dressing clean, dry, and intact. DERMATOLOGIC: No rashes. MUSCULOSKELETAL: No joint effusion. NEUROLOGIC: No change in exam. MEDICATIONS: Reviewed. LABORATORY DATA: Reviewed. ASSESSMENT AND PLAN: 1. Nonoliguric acute kidney injury on top of chronic kidney disease with baseline creatinine of arou nd 1.2 to 1.3 mg/dL. Etiology of acute kidney injury is secondary to hemodynamics. Renal function i s stable. Continue current treatment plan, supportive care, renally dose all medications. 2. Anemia. Continue to monitor hemoglobin and hematocrit levels. 3. Mineral bone disorder, monitor calcium and phosphorus levels. 4. Bilateral gangrenous foot osteomyelitis. The patient is seen by podiatry, and vascular surgery. Continue to monitor. Follow up recommendations. 5. Diabetes. Continue current insulin regimen. 6. Neurogenic bladder. Continue to monitor. 7. Sepsis secondary to osteomyelitis. Continue antibiotic therapy. 8. History of cerebrovascular accident. Continue current medical management. 9. Encephalopathy, improving. Dictated By: PARI TRAN DO NR/NTS Conf#: [id number] DID#: [id number] CC: MELISSA MORRISSEY MD; ANEL COTA MD;*EndCC*
[2018-07-28] MEDS: TIGECYCLINE 50 MG in SOD CHLORIDE 0.9% 100 ML IVPB SCH ×2 (08:39→20:00)
[2018-07-28] MEDS: CEFEPIME 2GM/50 ML IVPB SCH ×2 (09:31→21:27)
[2018-07-28] MEDS: EUCERIN 113 GM CR TOP SCH ×2 (09:40→21:33)
--- NOTE | 2018-07-28 11:14 | CONS ---
Assessment/Plan Assessment/Plan Hospital Course (Demo Recall) No acute events, all noted Antimicrobials: Tygacil, cefepime Microbiology: Wound culture grew multidrug-resistant Acinetobacter, enterococcus, E. coli Physical examination: Well-developed well-nourished middle-aged woman who is alert in no distress. Head atraumatic normocephalic sclera nonicteric. Neck is supple. Chest rise symmetrical, breath sounds clear. Heart: S1-S2. Abdomen soft bowel sounds present. Extremities with bilateral lower extremities dressing clean dry and intact Assessment: 1. Bilateral lower extremities gangrene/Osteomyelitis 2. Chronic kidney disease, history of hemodialysis 3. Diabetes 4. RUE PICC Plan: Remains stable, vascular rec-s noted, continue on current abx to complete 6 weeks Consultation Date/Type/Reason Admit Date/Time July 21, 2018 at 20:31 Initial Consult Date Type of Consult id Date/Time of Note DATE: 07/28/18 TIME: 11:14 Exam/Review of Systems Exam Vitals Vital Signs Date Temp Pulse Resp B/P (MAP) Pulse Ox O2 O2 Flow FiO2 Time Delivery Rate 07/28/18 98.1 78 17 135/79 99 08:09 (97) 07/25/18 Room Air 15:34 Intake and Output 07/27/18 07/27/18 07/28/18 1515:00 23:00 07:00 IntakeIntake Total 2150 ml 670 ml OutputOutput Total 2500 ml 850 ml BalanceBalance -350 ml -180 ml Results Result Diagram: 07/27/18 0522 07/27/18 0522 Results 24hrs Laboratory Tests Test 07/27/18 12:17 07/27/18 17:53 07/27/18 20:14 07/28/18 01:02 Bedside Glucose 151 120 204 136 Test 07/28/18 08:00 Bedside Glucose 104 Medications Medication Current Medications IV Flush (NS 3 ml) 3 ml PER PROTOCOL IV ; Start 07/21/18 at 20:30 Ondansetron HCl (Zofran Inj) 4 mg Q6H PRN IV NAUSEA/VOMITING; Start 07/21/18 at 20:30 Acetaminophen (Tylenol Tab) 650 mg Q6H PRN PO .PAIN 1-3 OR TEMP; Start 07/21/18 at 20:30 Morphine Sulfate (morphine) 2 mg Q4H PRN IV .SEVERE PAIN 7-10; Start 07/21/18 at 20:30 Docusate Sodium (Colace) 100 mg Q12H PRN PO .CONSTIPATION Last administered on 07/25/18 21:13; Admin Dose 100 MG; Start 07/21/18 at 20:30 Bisacodyl (Dulcolax) 5 mg DAILY PRN PO .CONSTIPATION Last administered on 07/24/18 16:17; Admin Dose 5 MG; Start 07/21/18 at 20:30 Carvedilol (Coreg) 25 mg BID PO Last administered on 07/28/18 08:34; Admin Dose 25 MG; Start 07/21/18 at 23:00 Nifedipine (Procardia Xl) 60 mg DAILY PO Last administered on 07/28/18 08:33; Admin Dose 60 MG; Start 07/22/18 at 09:00 Zinc Sulfate (Zinc Sulfate) 220 mg DAILY PO Last administered on 07/28/18 08:33; Admin Dose 220 MG; Start 07/22/18 at 09:00 Atorvastatin Calcium (Lipitor) 40 mg HS PO Last administered on 07/27/18 20:15; Admin Dose 40 MG; Start 07/21/18 at 23:21 Insulin Aspart (Novolog Insulin Pen) NOVOLOG *MILD* ALGORITHM WITH MEALS BEDTIME SC Last administered on 07/27/18 20:22; Admin Dose 1 UNIT; Start 07/22/18 at 08:00 Miscellaneous Information 1 ea NOTE XX ; Start 07/22/18 at 04:30 Glucose (Glutose) 15 gm Q15M PRN PO DECREASED GLUCOSE; Start 07/22/18 at 04:30 Glucose (Glutose) 22.5 gm Q15M PRN PO DECREASED GLUCOSE; Start 07/22/18 at 04:30 Dextrose (D50w Syringe) 25 ml Q15M PRN IV DECREASED GLUCOSE; Start 07/22/18 at 04:30 Dextrose (D50w Syringe) 50 ml Q15M PRN IV DECREASED GLUCOSE; Start 07/22/18 at 04:30 Glucagon (Glucagen) 1 mg Q15M PRN IM DECREASED GLUCOSE; Start 07/22/18 at 04:30 Glucose (Glutose) 15 gm Q15M PRN BUCCAL DECREASED GLUCOSE; Start 07/22/18 at 04:30 Collagenase (Santyl) 1 applic QAM TOP Last administered on 07/28/18 08:31; Admin Dose 1 APPLIC; Start 07/22/18 at 10:30 Gentamicin Sulfate (Gentamicin 0.1% Oint) 1 applic HS TOP Last administered on 07/28/18 00:51; Admin Dose 1 APPLIC; Start 07/22/18 at 21:00 Multi-Ingredient Ointment (Eucerin Cream) 1 applic BID TOP Last administered on 07/28/18 09:40; Admin Dose 1 APPLIC; Start 07/22/18 at 22:00 Sodium Hypochlorite (Dakins Diluted ()) 1 applic BID TP Last administered on 07/28/18 08:32; Admin Dose 1 APPLIC; Start 07/23/18 at 15:00 Insulin Glargine (Lantus) 9 units DAILY@2000 SC Last administered on 07/27/18 20:21; Admin Dose 9 UNITS; Start 07/25/18 at 20:00 Cefepime HCl 50 ml @ 100 mls/hr Q12 IVPB Last administered on 07/28/18 09:31; Admin Dose 100 MLS/HR; Start 07/25/18 at 18:00 Tigecycline 50 mg/ Sodium Chloride 100 ml @ 200 mls/hr Q12H IVPB Last administered on 07/28/18 08:39; Admin Dose 200 MLS/HR; Start 07/25/18 at 20:00 Sodium Biphosphate/ Sodium Phosphate (Fleet Enema) 133 ml DAILY PRN [place] CONSTIPATION Last administered on 07/26/18 16:02; Admin Dose 133 ML; Start 07/26/18 at 13:00 SEBASTIAN BARRETO NP July 28, 2018 11:14
--- NOTE | 2018-07-28 11:24 | PDOCDIS ---
Discharge Instructions CONDITION [id number] Patient Condition: Mervo4h Good HOME CARE INSTRUCTIONS: [id number] Diet Instructions: Kobzi2s Regular ACTIVITY: [id number] Activity Restrictions: [id number] No Restrictions FOLLOW UP/APPOINTMENTS Follow-up Plan FOLLOW UP WITH YOUR PCP AND SALESPERSON SHOES IN 1-2 WEEKS ANEL COTA July 28, 2018 11:24
--- NOTE | 2018-07-28 14:09 | PN ---
Date/Time of Note Date/Time of Note DATE: 07/28/18 TIME: 14:07 Assessment/Plan VTE Prophylaxis Risk score (from Ns)>0 risk: 7 Pharmacological prophylaxis: NA/contraindicated Pharm contraindication: surgical contra Lines/Catheters Urinary Cath still in place: No Assessment/Plan Hospital Course 48 yo female with h/o critical illness for which received vasopressors and developed digital ischemia who recovered but developed gangrene of toes and finger who was referred to hospital for evaluation of leukocytosis. Found to have OM of feet - Abx per ID - surgical management per podiatry but vascular surgery has evaluated for second opinion, at this time podiatry is recommending outpatient follow-up DMII: - sliding scale insulin hypertension: - continue nifedipine, coreg DC planning: Podiatry as recommended outpatient follow-up with a third surgeon as second opinion from vascular surgery recommends a different course of action, patient's now is now interested in surgery will need to coordinate with podiatry and vascular surgery about treatment plan Result Diagram: 07/27/18 0522 07/27/18521 Results 24hrs Laboratory Tests Test 07/27/18 17:53 07/27/18 20:14 07/28/18 01:02 07/28/18 08:00 Bedside Glucose 120 204 136 104 Test 07/28/18 13:01 Bedside Glucose 118 Subjective 24 Hr Interval Summary Constitutional: no complaints Exam/Review of Systems Exam Vitals Vital Signs Date Temp Pulse Resp B/P (MAP) Pulse Ox O2 O2 Flow FiO2 Time Delivery Rate 07/28/18 98.1 78 17 135/79 99 08:09 (97) 07/25/18 Room Air 15:34 Intake and Output 07/27/18 07/27/18 07/28/18 1515:00 23:00 07:00 IntakeIntake Total 2150 ml 670 ml OutputOutput Total 2500 ml 850 ml BalanceBalance -350 ml -180 ml Constitutional: alert, oriented Respiratory: clear to auscultation Cardiovascular: regular rate and rhythm Gastrointestinal: soft; No distended Musculoskeletal: nl extremities to inspection Results Results 24hrs Laboratory Tests Test 07/27/18 17:53 07/27/18 20:14 07/28/18 01:02 07/28/18 08:00 Bedside Glucose 120 204 136 104 Test 07/28/18 13:01 Bedside Glucose 118 Medications Medication Current Medications IV Flush (NS 3 ml) 3 ml PER PROTOCOL IV ; Start 07/21/18 at 20:30 Ondansetron HCl (Zofran Inj) 4 mg Q6H PRN IV NAUSEA/VOMITING; Start 07/21/18 at 20:30 Acetaminophen (Tylenol Tab) 650 mg Q6H PRN PO .PAIN 1-3 OR TEMP; Start 07/21/18 at 20:30 Morphine Sulfate (morphine) 2 mg Q4H PRN IV .SEVERE PAIN 7-10; Start 07/21/18 at 20:30 Docusate Sodium (Colace) 100 mg Q12H PRN PO .CONSTIPATION Last administered on 07/25/18 21:13; Admin Dose 100 MG; Start 07/21/18 at 20:30 Bisacodyl (Dulcolax) 5 mg DAILY PRN PO .CONSTIPATION Last administered on 9at 16:17; Admin Dose 5 MG; Start 07/21/18 at 20:30 Carvedilol (Coreg) 25 mg BID PO Last administered on 07/28/18 08:34; Admin Dose 25 MG; Start 07/21/18 at 23:00 Nifedipine (Procardia Xl) 60 mg DAILY PO Last administered on 07/28/18 08:33; Admin Dose 60 MG; Start 07/22/18 at 09:00 Zinc Sulfate (Zinc Sulfate) 220 mg DAILY PO Last administered on 07/28/18 08:33; Admin Dose 220 MG; Start 07/22/18 at 09:00 Atorvastatin Calcium (Lipitor) 40 mg HS PO Last administered on 07/27/18 20:15; Admin Dose 40 MG; Start 07/21/18 at 23:21 Insulin Aspart (Novolog Insulin Pen) NOVOLOG *MILD* ALGORITHM WITH MEALS BEDTIME SC Last administered on 07/27/18 20:22; Admin Dose 1 UNIT; Start 07/22/18 at 08:00 Miscellaneous Information 1 ea NOTE XX ; Start 07/22/18 at 04:30 Glucose (Glutose) 15 gm Q15M PRN PO DECREASED GLUCOSE; Start 07/22/18 at 04:30 Glucose (Glutose) 22.5 gm Q15M PRN PO DECREASED GLUCOSE; Start 07/22/18 at 04:30 Dextrose (D50w Syringe) 25 ml Q15M PRN IV DECREASED GLUCOSE; Start 07/22/18 at 04:30 Dextrose (D50w Syringe) 50 ml Q15M PRN IV DECREASED GLUCOSE; Start 07/22/18 at 04:30 Glucagon (Glucagen) 1 mg Q15M PRN IM DECREASED GLUCOSE; Start 07/22/18 at 04:30 Glucose (Glutose) 15 gm Q15M PRN BUCCAL DECREASED GLUCOSE; Start 07/22/18 at 04:30 Collagenase (Santyl) 1 applic QAM TOP Last administered on 07/28/18 08:31; Admin Dose 1 APPLIC; Start 07/22/18 at 10:30 Gentamicin Sulfate (Gentamicin 0.1% Oint) 1 applic HS TOP Last administered on 07/28/18 00:51; Admin Dose 1 APPLIC; Start 07/22/18 at 21:00 Multi-Ingredient Ointment (Eucerin Cream) 1 applic BID TOP Last administered on 07/28/18 09:40; Admin Dose 1 APPLIC; Start 07/22/18 at 22:00 Sodium Hypochlorite (Dakins Diluted ()) 1 applic BID TP Last administered on 07/28/18 08:32; Admin Dose 1 APPLIC; Start 07/23/18 at 15:00 Insulin Glargine (Lantus) 9 units DAILY@2000 SC Last administered on 07/27/18 20:21; Admin Dose 9 UNITS; Start 07/25/18 at 20:00 Cefepime HCl 50 ml @ 100 mls/hr Q12 IVPB Last administered on 07/28/18 09:31; Admin Dose 100 MLS/HR; Start 07/25/18 at 18:00 Tigecycline 50 mg/ Sodium Chloride 100 ml @ 200 mls/hr Q12H IVPB Last administered on 07/28/18 08:39; Admin Dose 200 MLS/HR; Start 07/25/18 at 20:00 Sodium Biphosphate/ Sodium Phosphate (Fleet Enema) 133 ml DAILY PRN [place] CONSTIPATION Last administered on 07/26/18 16:02; Admin Dose 133 ML; Start 07/26/18 at 13:00 ANEL COTA July 28, 2018 14:09
[2018-07-28 14:16] VITALS: BP 137/80; PULSE 78; RESP 16
[2018-07-28 20:00] VITALS: BP 143/78; PULSE 81; RESP 17
[2018-07-28] MEDS: ATORVASTATIN 40 MG TAB PO SCH (21:29)
[2018-07-28] MEDS: INSULIN GLARGINE [LANTus] (100 UNITS/ML) SYG SC SCH (21:37)
--- NOTE | 2018-07-28 23:02 | PN ---
Date/Time of Note Date/Time of Note DATE: 07/28/18 TIME: 23:02 Assessment/Plan Lines/Catheters IV Catheter Type (from [facility]): PICC Line [place] in Place (from [facility]): No Assessment/Plan Chief Complaint/Hosp Course -Secondary consultation has been requested for possible limb salvage intervention. As the patient has adequate perfusion to the lower leg (palpable pedal pulses) she is a candidate for skin graft substitute in order to cover the wound defect. I have had a thorough conversation with our patient and at the Bedside and explained clearly these will be heroic measures given the extent of tissue loss and still may end up with bilateral below knee amputations. They have considered their options and have requested to proceed with limb salvage intervention. They understand that this intervention will require serial debridements and toe amputations including skin graft substitute applications. This will not be a quick fix but will rather take time and patience. -They have understood all risks, benefits and alternatives. have been able to repeat the information back to me and have asked adamantly wanting everything done to assist. Will schedule the patient in the coming days -Will also discuss the plan with our podiatry colleagues should patient plan to proceed Subjective 24 Hr Interval Summary Constitutional: no complaints Exam/Review of Systems Vital Signs Vitals Vital Signs Date Temp Pulse Resp B/P (MAP) Pulse Ox O2 O2 Flow FiO2 Time Delivery Rate 07/28/18 98.5 81 17 143/78 98 20:00 (99) 07/25/18 Room Air 15:34 Intake and Output 07/27/18 07/27/18 07/28/18 1515:00 23:00 07:00 IntakeIntake Total 2150 ml 670 ml OutputOutput Total 2500 ml 850 ml BalanceBalance -350 ml -180 ml Results Result Diagram: 07/27/18 0522 07/27/18 0522 SREEDHAR VILLEGAS MD July 28, 2018 23:02
--- NOTE | 2018-07-29 00:08 | CONS ---
DATE OF ADMISSION: 07/21/2018 DATE OF CONSULTATION: 07/26/2018 VASCULAR SURGERY CONSULTATION Dear Doctors: Ms. Castillo is a 48-year-old female whom presented with complex bilateral lower extremity gangrene, that has been managed with our podiatry colleagues and other vascular surgery colleagues. A tertiary vascular surgery consultation for limb salvage has been obtained secondary to her significant wound defects and gangrene of her bilateral lower extremities. The patient's history consists of originally presenting in 11/2017 with severe sepsis that involved obstructive ureterolithiasis and left-sided hydronephrosis. At that time, patient developed severe sepsis and progression to respiratory failure requiring prolonged intubation and vasopressors. During this course of time, the patient sustained severe gangrene of the lower extremities secondary to her sepsis and vasopressor support. Further, the patient had respiratory failure requiring tracheostomy placement. As the patient has history of diabetes and calcified tibial vessels, she had undergone diagnostic studies which did not identify any hemodynamically significant stenosis. In fact, the patient has palpable pedal pulses. During this course, the patient has undergone multiple debridements and interventions with our podiatry colleagues in order to salvage her lower extremities. The patient and her are very involved and very adamant about doing everything that can be done, including heroic measures, in order to salvage her limbs. Vascular surgery consultation as a third opinion has been obtained in order to discuss other heroic measures that can be offered to patient in order to salvage her bilateral feet and be able to assist with her significant wound defects, especially her left lower extremity. Her lower extremities consist of exposure of gangrene of all the toes on the left, significant exposure of the metatarsal bone and significant tissue loss with exposure of tendon and ligaments of the plantar aspect. On the right, the patient has gangrene of the 3rd and 4th toes, has gangrene of the lateral aspect of the plantar extending to her heel. At the moment, patient denies shortness of breath, chest pain, nausea, vomiting, fever or chills. The patient was also admitted secondary to having elevated white blood cell count associated with worsening gangrene of the bilateral lower extremities with osteomyelitis with wound cultures that are multidrug resistant. PAST MEDICAL HISTORY: Entails bilateral lower extremity gangrene with osteomyelitis, type 2 diabetes, chronic kidney disease, anemia, history of stroke, hypertension, respiratory failure, urinary retention with neurogenic bladder, possible autonomic dysfunction, kidney stones. PAST SURGICAL HISTORY: Multiple bilateral lower extremity debridements and toe amputations, ureteral stents, tracheostomy. FAMILY HISTORY: Positive for diabetes. SOCIAL HISTORY: Denies current tobacco, alcohol or illicit drug use. PHYSICAL EXAMINATION: GENERAL: The patient is awake, able to answer questions. HEENT: Normocephalic, atraumatic. Mucosa moist. NECK: Supple. No carotid bruit. PULMONARY: Clear to auscultation bilaterally. No crackles. CARDIOVASCULAR: S1, S2 present. No murmurs. ABDOMEN: Soft, nontender, nondistended. Bowel sounds positive. Truncal obesity. EXTREMITIES: Right lower extremity: Palpable femoral pulse. Palpable DP pulse. Motor and sensory intact up to the ankle. She is able to move the 1st and 2nd toes. There is gangrene of the 3rd, 4th and fifth toes. There is gangrene and exposed ulceration of the lateral aspect of the foot extending to the plantar and to the heel. No significant erythema and no purulent drainage identified. There is foul smell associated with this. Left lower extremity: Palpable femoral pulse. Palpable DP pulse. Motor and sensory intact up to the ankle (there is some peripheral neuropathy). Gangrene of all the toes extending to the metatarsal heads. Significant wound defect in the plantar aspect with exposure of 5th metatarsal, exposure of ligament, tendon and muscle. Necrotic tissue also identified. DISCUSSION: -Bilateral lower extremity atherosclerosis with bilateral foot gangrene: It seems that the patient had developed significant gangrene from her initial presentation back in fall of 2017. Since then, the patient has undergone multiple interventions and surgical debridements with our podiatry colleagues in order to provide adequate limb salvage for the patient. Given the extent involvement of tissue loss and exposure of muscle, tendon, bone and wound defect, the only option that could be provided to our patient is heroic measures with skin substitute grafts that can potentially incorporate further granulation tissue in order to allow adequate wound healing. The patient does have palpable pedal pulses, so suggestion of perfusion to the foot should be adequate to allow such intervention. I have thoroughly explained to the and to the that there is no one remedy that is superior to the other, provided the family with extensive information for limb salvage interventions that are done, and all the treatments that she has received up to this point have been adequate and satisfactory. I have also explained to the patient that the intervention that I would provide would not be optimal to any intervention that she has already received. However, it is another avenue that they can partake or can proceed with should they choose. I will discuss the plan with our multidisciplinary team should the patient and want to go that route. The patient does have a high risk of not being able to heal the significant wound defects and end up with major amputation such as below-knee amputations bilaterally. After reviewing all the information with the and being able to repeat all the information back to me, they have been adamant that they want everything done to salvage the limb including partaking in heroic measures. I will be happy to provide this intervention. We will discuss the findings once they have chosen the way they would like to proceed and I will await their decision. Interventions involved will be numerous and with serial debridements Optimize vascular status (BP meds, diet, nutrition, exercise, sugar control, antiplatelets). Discuss findings, plan and management with the patient and our multidisciplinary team. Thank you for allowing us to partake in the care of your patient. Please call with any questions. Sincerely, Dictated By: SREEDHAR DUBON/LESLIE Conf#: [id number] DID#: [id number] CC: MELISSA MORRISSEY MD;*EndCC* MTDD
[2018-07-29 02:00] VITALS: BP 122/73; PULSE 74; RESP 17
[2018-07-29] MEDS: GENTAMICIN 0.1% 15 GM OINT TOP SCH ×2 (02:56→23:15)
[2018-07-29] MEDS: DAKINS 0.0125%(1/40) 473 ML SOLUTION TP SCH ×3 (02:56→23:15)
[2018-07-29 08:00] VITALS: BP 141/76; PULSE 73; RESP 17
[2018-07-29] MEDS: INSULIN ASPART [NOVOLOG] 3 ML PEN SC SCH ×4 (08:00→20:42)
--- NOTE | 2018-07-29 09:07 | PN ---
DATE: 07/29/2018 SUBJECTIVE: The patient is stable. No events overnight. No fevers, chills, nausea, or vomiting. OBJECTIVE: VITAL SIGNS: Blood pressure is 122/73, respirations 17, pulse 74, temperature 98.4. HEENT: Head is normocephalic. NECK: Supple. HEART: Regular rate. LUNGS: Show diminished breath sounds at the base. ABDOMEN: Soft, nontender to palpation without rebound or guarding. EXTREMITIES: Negative for clubbing, cyanosis. Positive wounds with dressing clean, dry, and intact. DERMATOLOGIC: No rashes. MUSCULOSKELETAL: No joint effusion. NEUROLOGIC: No change in exam. MEDICATIONS: Reviewed. LABORATORY DATA: Reviewed. ASSESSMENT AND PLAN: 1. Nonoliguric acute kidney injury on top of chronic kidney disease with baseline creatinine of arou nd 1.2 to 1.3 mg/dL. Etiology of acute kidney injury is secondary to hemodynamics. Renal function i s stable. Continue current treatment plan, supportive care, renally dose all medications. 2. Anemia. Continue to monitor hemoglobin and hematocrit levels. 3. Mineral bone disorder. Monitor calcium and phosphorus levels. 4. Bilateral gangrenous foot with osteomyelitis. The patient is seen by podiatry, and vascular surg rachel. Continue to monitor. Follow up recommendations. 5. Diabetes. Continue current insulin regimen. 6. Neurogenic bladder. Continue to monitor. 7. Sepsis secondary to osteomyelitis. Continue current antibiotic regimen. 8. History of cerebrovascular accident. 9. Encephalopathy, improving. Dictated By: PARI TRAN DO NR/NTS Conf#: [id number] DID#: [id number] CC: ANEL COTA MD; MELISSA MORRISSEY MD;*End*
--- NOTE | 2018-07-29 09:41 | PN ---
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 Since then, the patient has undergone multiple interventions and surgical debridements with our podiatry colleagues in order to provide adequate limb salvage for the patient. Given the extent involvement of tissue loss and exposure of muscle, tendon, bone and wound defect, the only option that could be provided to our patient is heroic measures with skin substitute grafts that can potentially incorporate further granulation tissue in order to allow adequate wound healing. The patient does have palpable pedal pulses, so suggestion of perfusion to the foot should be adequate to allow such intervention. I have thoroughly explained to the and to the that there is no one remedy that is superior to the other, provided the family with extensive in formation for limb salvage interventions that are done, and all the treatments that she has received up to this point have been adequate and satisfactory. I have also explained to the patient that the intervention that I would provide would not be optimal to any intervention that she has already received. However, it is another avenue that they can partake or can proceed with should they choose. I will discuss the plan with our multidisciplinary team should the patient and want to go that route. The patient does have a high risk of not being able to heal the significant wound defects and end up with major amputation such as below-knee amputations bilaterally. After reviewing all the information with the and being able to repeat all the information back to me, they have been adamant that they want everything done to salvage the limb including partaking in heroic measures.. Interventions involved will be numerous and with serial debridements. The family has chosen to proceed with intervention. Will plan to obtain scheduled procedure time in the coming days Optimize vascular status (BP meds, diet, nutrition, exercise, sugar control, antiplatelets). Discuss findings, plan and management with the patient and our multidisciplinary team. Thank you for allowing us to partake in the care of your patient. Please call with any questions. Subjective 24 Hr Interval Summary Constitutional: no complaints Exam/Review of Systems Vital Signs Vitals Vital Signs Date Temp Pulse Resp B/P (MAP) Pulse Ox O2 O2 Flow FiO2 Time Delivery Rate 07/29/18 97.9 73 17 141/76 100 08:00 (97) 07/25/18 Room Air 15:34 Intake and Output 07/28/18 07/28/18 07/29/18 1414:59 22:59 06:59 IntakeIntake Total 1110 ml 630 ml BalanceBalance 1110 ml 630 ml Exam Free Text/Dictation GENERAL: The patient is awake, able to answer questions. HEENT: Normocephalic, atraumatic. Mucosa moist. NECK: Supple. No carotid bruit. PULMONARY: Clear to auscultation bilaterally. No crackles. CARDIOVASCULAR: S1, S2 present. No murmurs. ABDOMEN: Soft, nontender, nondistended. Bowel sounds positive. Truncal obesity. EXTREMITIES: Right lower extremity: Palpable femoral pulse. Palpable DP pulse. Motor and sensory intact up to the ankle. She is able to move the 1st and 2nd toes. There is gangrene of the 3rd, 4th and fifth toes. There is gangrene and exposed ulceration of the lateral aspect of the foot extending to the plantar and to the heel. No significant erythema and no purulent drainage identified. There is foul smell associated with this. Left lower extremity: Palpable femoral pulse. Palpable DP pulse. Motor and sensory intact up to the ankle (there is some peripheral neuropathy). Gangrene of all the toes extending to the metatarsal heads. Significant wound defect in the plantar aspect with exposure of 5th metatarsal, exposure of ligament, tendon and muscle. Necrotic tissue also identified. Results Result Diagram: 07/27/18 0522 07/27/18 0522 SREEDHAR VILLEGAS MD July 29, 2018 09:41
[2018-07-29] MEDS: TIGECYCLINE 50 MG in SOD CHLORIDE 0.9% 100 ML IVPB SCH ×2 (09:53→20:30)
[2018-07-29] MEDS: NIFEdipine (XL) 60 MG TAB PO SCH (09:54)
[2018-07-29] MEDS: ZINC SULFATE 220 MG CAP PO SCH (09:55)
[2018-07-29] MEDS: COLLAGENASE 5 GM (UD JAR) TOP SCH (09:55)
[2018-07-29] MEDS: EUCERIN 113 GM CR TOP SCH ×2 (09:56→22:34)
[2018-07-29] MEDS: CEFEPIME 2GM/50 ML IVPB SCH ×2 (11:36→22:33)
--- NOTE | 2018-07-29 14:13 | PN ---
Date/Time of Note Date/Time of Note DATE: 07/29/18 TIME: 14:12 Assessment/Plan VTE Prophylaxis Risk score (from Nsg)>0 risk: 7 Pharmacological prophylaxis: NA/contraindicated Pharm contraindication: surgical contra Lines/Catheters Urinary Cath still in place: No Assessment/Plan Hospital Course 48 yo female with h/o critical illness for which received vasopressors and developed digital ischemia who recovered but developed gangrene of toes and finger who was referred to hospital for evaluation of leukocytosis. Found to have OM of feet - Abx per ID -Patient has been has been uncertain as to who to operate on feet but is currently leaning towards podiatry DMII: - sliding scale insulin hypertension: - continue nifedipine, coreg DC planning: Patient has been now is preferring to have surgery done with podiatry, follow-up with podiatry recommendations Result Diagram: 07/27/1852107/27/18521 Results 24hrs Laboratory Tests Test 07/28/18 18:05 07/28/18 21:30 07/29/18 08:21 07/29/18 12:37 Bedside Glucose 92 125 106 120 Subjective 24 Hr Interval Summary Constitutional: no complaints Exam/Review of Systems Exam Vitals Vital Signs Date Temp Pulse Resp B/P (MAP) Pulse Ox O2 O2 Flow FiO2 Time Delivery Rate 07/29/18 97.9 73 17 141/76 100 08:00 (97) 07/25/18 Room Air 15:34 Intake and Output 07/28/18 07/28/18 07/29/18 1515:00 23:00 07:00 IntakeIntake Total 1110 ml 630 ml BalanceBalance 1110 ml 630 ml Constitutional: alert, oriented Respiratory: clear to auscultation Cardiovascular: regular rate and rhythm Gastrointestinal: soft; No distended Musculoskeletal: No nl extremities to inspection Results Results 24hrs Laboratory Tests Test 07/28/18 18:05 07/28/18 21:30 07/29/18 08:21 07/29/18 12:37 Bedside Glucose 92 125 106 120 Medications Medication Current Medications IV Flush (NS 3 ml) 3 ml PER PROTOCOL IV ; Start 07/21/18 at 20:30 Ondansetron HCl (Zofran Inj) 4 mg Q6H PRN IV NAUSEA/VOMITING; Start 07/21/18 at 20:30 Acetaminophen (Tylenol Tab) 650 mg Q6H PRN PO .PAIN 1-3 OR TEMP; Start 07/21/18 at 20:30 Morphine Sulfate (morphine) 2 mg Q4H PRN IV .SEVERE PAIN 7-10; Start 07/21/18 at 20:30 Docusate Sodium (Colace) 100 mg Q12H PRN PO .CONSTIPATION Last administered on 07/25/18 21:13; Admin Dose 100 MG; Start 07/21/18 at 20:30 Bisacodyl (Dulcolax) 5 mg DAILY PRN PO .CONSTIPATION Last administered on 07/24/18 16:17; Admin Dose 5 MG; Start 07/21/18 at 20:30 Carvedilol (Coreg) 25 mg BID PO Last administered on 07/29/18 09:54; Admin Dose 25 MG; Start 07/21/18 at 23:00 Nifedipine (Procardia Xl) 60 mg DAILY PO Last administered on 07/29/18 09:54; Admin Dose 60 MG; Start 07/22/18 at 09:00 Zinc Sulfate (Zinc Sulfate) 220 mg DAILY PO Last administered on 07/29/18 09:55; Admin Dose 220 MG; Start 07/22/18 at 09:00 Atorvastatin Calcium (Lipitor) 40 mg HS PO Last administered on 07/28/18 21:29; Admin Dose 40 MG; Start 07/21/18 at 23:21 Insulin Aspart (Novolog Insulin Pen) NOVOLOG *MILD* ALGORITHM WITH MEALS BEDTIME SC Last administered on 07/27/18 20:22; Admin Dose 1 UNIT; Start 07/22/18 at 08:00 Miscellaneous Information 1 ea NOTE XX ; Start 07/22/18 at 04:30 Glucose (Glutose) 15 gm Q15M PRN PO DECREASED GLUCOSE; Start 07/22/18 at 04:30 Glucose (Glutose) 22.5 gm Q15M PRN PO DECREASED GLUCOSE; Start 07/22/18 at 04:30 Dextrose (D50w Syringe) 25 ml Q15M PRN IV DECREASED GLUCOSE; Start 07/22/18 at 04:30 Dextrose (D50w Syringe) 50 ml Q15M PRN IV DECREASED GLUCOSE; Start 07/22/18 at 04:30 Glucagon (Glucagen) 1 mg Q15M PRN IM DECREASED GLUCOSE; Start 07/22/18 at 04:30 Glucose (Glutose) 15 gm Q15M PRN BUCCAL DECREASED GLUCOSE; Start 07/22/18 at 04 :30 Collagenase (Santyl) 1 applic QAM TOP Last administered on 07/29/18 09:55; Admin Dose 1 APPLIC; Start 07/22/18 at 10:30 Gentamicin Sulfate (Gentamicin 0.1% Oint) 1 applic HS TOP Last administered on 07/29/18 02:56; Admin Dose 1 APPLIC; Start 07/22/18 at 21:00 Multi-Ingredient Ointment (Eucerin Cream) 1 applic BID TOP Last administered on 07/29/18 09:56; Admin Dose 1 APPLIC; Start 07/22/18 at 22:00 Sodium Hypochlorite (Dakins Diluted ()) 1 applic BID TP Last administered on 07/29/18 09:56; Admin Dose 1 APPLIC; Start 07/23/18 at 15:00 Insulin Glargine (Lantus) 9 units DAILY@2000 SC Last administered on 07/28/18 21:37; Admin Dose 9 UNITS; Start 07/25/18 at 20:00 Cefepime HCl 50 ml @ 100 mls/hr Q12 IVPB Last administered on 07/29/18 11:36; Admin Dose 100 MLS/HR; Start 07/25/18 at 18:00 Tigecycline 50 mg/ Sodium Chloride 100 ml @ 200 mls/hr Q12H IVPB Last administered on 07/29/18 09:53; Admin Dose 200 MLS/HR; Start 07/25/18 at 20:00 Sodium Biphosphate/ Sodium Phosphate (Fleet Enema) 133 ml DAILY PRN [place] CONSTIPATION Last administered on 07/26/18 16:02; Admin Dose 133 ML; Start 07/26/18 at 13:00 ANEL COTA July 29, 2018 14:13
[2018-07-29] MEDS: NA PHOSPHATE/BIPHOS 133 ML ENEMA PR PRN (14:58)
--- NOTE | 2018-07-29 15:44 | CONS ---
Assessment/Plan Assessment/Plan Hospital Course (Demo Recall) No acute events overnight patient is alert looks comfortable at bedside no fevers Antimicrobials: Tygacil, cefepime Microbiology: Wound culture grew multidrug-resistant Acinetobacter, e nterococcus, E. coli Physical examination: Well-developed well-nourished middle-aged woman who is alert in no distress. Head atraumatic normocephalic sclera nonicteric. Neck is supple. Chest rise symmetrical, breath sounds clear. Heart: S1-S2. Abdomen soft bowel sounds present. Extremities with bilateral lower extremities dressing clean dry and intact Assessment: 1. Bilateral lower extremities gangrene/Osteomyelitis 2. Chronic kidney disease, history of hemodialysis 3. Diabetes 4. RUE PICC Plan: Remains stable, plan for surgical intervention with left transmetatarsal amputation on Thursday DW Consultation Date/Type/Reason Admit Date/Time July 21, 2018 at 20:31 Initial Consult Date Type of Consult id Date/Time of Note DATE: 07/29/18 TIME: 15:43 Exam/Review of Systems Exam Vitals Vital Signs Date Temp Pulse Resp B/P (MAP) Pulse Ox O2 O2 Flow FiO2 Time Delivery Rate 07/29/18 97.9 73 17 141/76 100 08:00 (97) 07/25/18 Room Air 15:34 Intake and Output 07/28/18 07/28/18 07/29/18 1515:00 23:00 07:00 IntakeIntake Total 1110 ml 630 ml BalanceBalance 1110 ml 630 ml Results Result Diagram: 07/27/1852107/27/18 0522 Results 24hrs Laboratory Tests Test 07/28/18 18:05 07/28/18 21:30 07/29/18 08:21 07/29/18 12:37 Bedside Glucose 92 125 106 120 Medications Medication Current Medications IV Flush (NS 3 ml) 3 ml PER PROTOCOL IV ; Start 07/21/18 at 20:30 Ondansetron HCl (Zofran Inj) 4 mg Q6H PRN IV NAUSEA/VOMITING; Start 07/21/18 at 20:30 Acetaminophen (Tylenol Tab) 650 mg Q6H PRN PO .PAIN 1-3 OR TEMP; Start 07/21/18 at 20:30 Morphine Sulfate (morphine) 2 mg Q4H PRN IV .SEVERE PAIN 7-10; Start 07/21/18 at 20:30 Docusate Sodium (Colace) 100 mg Q12H PRN PO .CONSTIPATION Last administered on 07/25/18 21:13; Admin Dose 100 MG; Start 07/21/18 at 20:30 Bisacodyl (Dulcolax) 5 mg DAILY PRN PO .CONSTIPATION Last administered on 07/24/18 16:17; Admin Dose 5 MG; Start 07/21/18 at 20:30 Carvedilol (Coreg) 25 mg BID PO Last administered on 07/29/18 09:54; Admin Dose 25 MG; Start 07/21/18 at 23:00 Nifedipine (Procardia Xl) 60 mg DAILY PO Last administered on 07/29/18 09:54; Admin Dose 60 MG; Start 07/22/18 at 09:00 Zinc Sulfate (Zinc Sulfate) 220 mg DAILY PO Last administered on 07/29/18 09:55; Admin Dose 220 MG; Start 07/22/18 at 09:00 Atorvastatin Calcium (Lipitor) 40 mg HS PO Last administered on 07/28/18 21:29; Admin Dose 40 MG; Start 07/21/18 at 23:21 Insulin Aspart (Novolog Insulin Pen) NOVOLOG *MILD* ALGORITHM WITH MEALS BEDTIME SC Last administered on 07/27/18 20:22; Admin Dose 1 UNIT; Start 07/22/18 at 08:00 Miscellaneous Information 1 ea NOTE XX ; Start 07/22/18 at 04:30 Glucose (Glutose) 15 gm Q15M PRN PO DECREASED GLUCOSE; Start 07/22/18 at 04:30 Glucose (Glutose) 22.5 gm Q15M PRN PO DECREASED GLUCOSE; Start 07/22/18 at 04:30 Dextrose (D50w Syringe) 25 ml Q15M PRN IV DECREASED GLUCOSE; Start 07/22/18 at 04:30 Dextrose (D50w Syringe) 50 ml Q15M PRN IV DECREASED GLUCOSE; Start 07/22/18 at 04:30 Glucagon (Glucagen) 1 mg Q15M PRN IM DECREASED GLUCOSE; Start 07/22/18 at 04:30 Glucose (Glutose) 15 gm Q15M PRN BUCCAL DECREASED GLUCOSE; Start 07/22/18 at 04:30 Collagenase (Santyl) 1 applic QAM TOP Last administered on 07/29/18 09:55; Admin Dose 1 APPLIC; Start 07/22/18 at 10:30 Gentamicin Sulfate (Gentamicin 0.1% Oint) 1 applic HS TOP Last administered on 07/29/18 02:56; Admin Dose 1 APPLIC; Start 07/22/18 at 21:00 Multi-Ingredient Ointment (Eucerin Cream) 1 applic BID TOP Last administered on 07/29/18 09:56; Admin Dose 1 APPLIC; Start 07/22/18 at 22:00 Sodium Hypochlorite (Dakins Diluted (40)) 1 applic BID TP Last administered on 07/29/18 09:56; Admin Dose 1 APPLIC; Start 07/23/18 at 15:00 Insulin Glargine (Lantus) 9 units DAILY@2000 SC Last administered on 07/28/18 21:37; Admin Dose 9 UNITS; Start 07/25/18 at 20:00 Cefepime HCl 50 ml @ 100 mls/hr Q12 IVPB Last administered on 07/29/18 11:36; Admin Dose 100 MLS/HR; Start 07/25/18 at 18:00 Tigecycline 50 mg/ Sodium Chloride 100 ml @ 200 mls/hr Q12H IVPB Last administered on 07/29/18 09:53; Admin Dose 200 MLS/HR; Start 07/25/18 at 20:00 Sodium Biphosphate/ Sodium Phosphate (Fleet Enema) 133 ml DAILY PRN [place] CONSTIPATION Last administered on 07/29/18 14:58; Admin Dose 133 ML; Start 07/26/18 at 13:00 SEBASTIAN BARRETO NP July 29, 2018 15:44
[2018-07-29 20:03] VITALS: BP 145/81; PULSE 86; RESP 18
[2018-07-29] MEDS: ATORVASTATIN 40 MG TAB PO SCH (20:34)
[2018-07-29] MEDS: INSULIN GLARGINE [LANTus] (100 UNITS/ML) SYG SC SCH (20:39)
[2018-07-30 01:12] VITALS: BP 110/64; PULSE 74; RESP 18
[2018-07-30 07:41] VITALS: BP 121/72; PULSE 72; RESP 16
[2018-07-30] MEDS: INSULIN ASPART [NOVOLOG] 3 ML PEN SC SCH ×4 (07:58→20:10)
[2018-07-30] MEDS: ZINC SULFATE 220 MG CAP PO SCH (08:02)
[2018-07-30] MEDS: NIFEdipine (XL) 60 MG TAB PO SCH (08:02)
[2018-07-30] MEDS: TIGECYCLINE 50 MG in SOD CHLORIDE 0.9% 100 ML IVPB SCH ×2 (08:09→20:10)
--- NOTE | 2018-07-30 08:23 | PN ---
DATE: 07/30/2018 SUBJECTIVE: The patient is stable, no events overnight. OBJECTIVE: VITAL SIGNS: Blood pressure is 110/72, pulse 72, respirations 16, temperature 97.8. HEENT: Head is normocephalic. NECK: Supple. HEART: Regular rate. LUNGS: Show diminished breath sounds at base. ABDOMEN: Soft, nontender to palpation without rebound or guarding. EXTREMITIES: Negative for clubbing, cyanosis, no edema. DERMATOLOGIC: No rashes. MUSCULOSKELETAL: The patient has noted wounds on lower extremity with dressing clean, dry and intact . NEUROLOGIC: No change in exam. MEDICATIONS: Reviewed. LABORATORY DATA: From 07/30/2018 was reviewed. ASSESSMENT AND PLAN: 1. Nonoliguric acute kidney injury on top of chronic kidney disease with previous baseline creatinin e 1.2 to 1.3 mg/dL. Etiology of acute kidney injury is secondary to hemodynamics. Renal function is stabilizing. Continue current treatment plan, supportive care, renally dose all meds. 2. Anemia. Continue to monitor hemoglobin and hematocrit levels. 3. Mineral bone disorder. Monitor calcium and phosphorus levels. 4. Bilateral gangrenous foot with osteomyelitis. The patient has been seen by podiatry and vascular surgery pending possible amputation. Continue to monitor. Continue wound care. 5. Diabetes. Continue current insulin regimen. 6. Neurogenic bladder. Continue to monitor. Intermittent catheterization as needed. 7. Sepsis secondary to osteomyelitis. Continue current antibiotic therapy per infectious disease. 8. History of cerebrovascular accident. 9. Encephalopathy, improved. Dictated By: PARI AMAYA/LESLIE Conf#: [id number] DID#: [id number] CC: MELISSA MORRISSEY MD;*EndCC*
[2018-07-30] MEDS: CEFEPIME 2GM/50 ML IVPB SCH ×2 (09:35→20:10)
[2018-07-30] MEDS: DAKINS 0.0125%(1/40) 473 ML SOLUTION TP SCH ×2 (09:36→20:10)
[2018-07-30] MEDS: COLLAGENASE 5 GM (UD JAR) TOP SCH (09:36)
[2018-07-30] MEDS: EUCERIN 113 GM CR TOP SCH ×2 (09:37→20:10)
--- NOTE | 2018-07-30 11:32 | CONS ---
Assessment/Plan Assessment/Plan Hospital Course (Demo Recall) No acute events overnight Antimicrobials: Tygacil, cefepime Microbiology: Wound culture grew multidrug-resistant Acinetobacter, enterococcus, E. coli Physical examination: Well-developed well-nourished middle-aged woman who is alert in no distress. Head atraumatic normocephalic sclera nonicteric. Neck is supple. Chest rise symmetrical, breath sounds clear. Heart: S1-S2. Abdomen soft bowel sounds present. Extremities with bilateral lower extremities dressing clean dry and intact Assessment: 1. Bilateral lower extremities gangrene/Osteomyelitis 2. Chronic kidney disease, history of hemodialysis 3. Diabetes 4. RUE PICC Plan: Remains stable, plan for surgical intervention with left transmetatarsal amputation on Thursday, will dw podiatry after surgery if she will need to c ontinue IV abx Consultation Date/Type/Reason Admit Date/Time July 21, 2018 at 20:31 Initial Consult Date Type of Consult id Date/Time of Note DATE: 07/30/18 TIME: 11:31 Exam/Review of Systems Exam Vitals Vital Signs Date Temp Pulse Resp B/P (MAP) Pulse Ox O2 O2 Flow FiO2 Time Delivery Rate 07/30/18 97.8 72 16 121/72 100 Room Air 07:41 (88) Intake and Output 07/29/18 07/29/18 07/30/18 1515:00 23:00 07:00 IntakeIntake Total 1110 ml 100 ml 350 ml BalanceBalance 1110 ml 100 ml 350 ml Results Result Diagram: 07/27/18 0522 07/30/18 0615 Results 24hrs Laboratory Tests Test 07/29/18 12:37 07/29/18 17:34 07/29/18 20:37 07/30/18 06:15 Bedside Glucose 120 144 138 Sodium Level 141 Potassium Level 4.3 Chloride Level 113 H Carbon Dioxide Level 21 Anion Gap 7 Blood Urea Nitrogen 45 H Creatinine 1.09 H Est Glomerular Filtrat 54 L Rate mL/min Glucose Level 93 Calcium Level 9.1 Phosphorus Level 5.5 H Magnesium Level 1.8 Test 07/30/18 07:57 Bedside Glucose 88 Medications Medication Current Medications IV Flush (NS 3 ml) 3 ml PER PROTOCOL IV ; Start 07/21/18 at 20:30 Ondansetron HCl (Zofran Inj) 4 mg Q6H PRN IV NAUSEA/VOMITING; Start 07/21/18 at 20:30 Acetaminophen (Tylenol Tab) 650 mg Q6H PRN PO .PAIN 1-3 OR TEMP; Start 07/21/18 at 20:30 Morphine Sulfate (morphine) 2 mg Q4H PRN IV .SEVERE PAIN 7-10; Start 07/21/18 at 20:30 Docusate Sodium (Colace) 100 mg Q12H PRN PO .CONSTIPATION Last administered on 07/25/18 21:13; Admin Dose 100 MG; Start 07/21/18 at 20:30 Bisacodyl (Dulcolax) 5 mg DAILY PRN PO .CONSTIPATION Last administered on 07/24/18 16:17; Admin Dose 5 MG; Start 07/21/18 at 20:30 Carvedilol (Coreg) 25 mg BID PO Last administered on 07/30/18 08:02; Admin Dose 25 MG; Start 07/21/18 at 23:00 Nifedipine (Procardia Xl) 60 mg DAILY PO Last administered on 07/30/18 08:02; Admin Dose 60 MG; Start 07/22/18 at 09:00 Zinc Sulfate (Zinc Sulfate) 220 mg DAILY PO Last administered on 07/30/18 08:02; Admin Dose 220 MG; Start 07/22/18 at 09:00 Atorvastatin Calcium (Lipitor) 40 mg HS PO Last administered on 07/29/18 20:34; Admin Dose 40 MG; Start 07/21/18 at 23:21 Insulin Aspart (Novolog Insulin Pen) NOVOLOG *MILD* ALGORITHM WITH MEALS BEDTIME SC Last administered on 07/29/18 17:51; Admin Dose 1 UNIT; Start 07/22/18 at 08:00 Miscellaneous Information 1 ea NOTE XX ; Start 07/22/18 at 04:30 Glucose (Glutose) 15 gm Q15M PRN PO DECREASED GLUCOSE; Start 07/22/18 at 04:30 Glucose (Glutose) 22.5 gm Q15M PRN PO DECREASED GLUCOSE; Start 07/22/18 at 04:30 Dextrose (D50w Syringe) 25 ml Q15M PRN IV DECREASED GLUCOSE; Start 07/22/18 at 04:30 Dextrose (D50w Syringe) 50 ml Q15M PRN IV DECREASED GLUCOSE; Start 07/22/18 at 04:30 Glucagon (Glucagen) 1 mg Q15M PRN IM DECREASED GLUCOSE; Start 07/22/18 at 04:30 Glucose (Glutose) 15 gm Q15M PRN BUCCAL DECREASED GLUCOSE; Start 07/22/18 at 04:30 Collagenase (Santyl) 1 applic QAM TOP Last administered on 07/30/18 09:36; Admin Dose 1 APPLIC; Start 07/22/18 at 10:30 Gentamicin Sulfate (Gentamicin 0.1% Oint) 1 applic HS TOP Last administered on 07/29/18 23:15; Admin Dose 1 APPLIC; Start 07/22/18 at 21:00 Multi-Ingredient Ointment (Eucerin Cream) 1 applic BID TOP Last administered on 07/30/18 09:37; Admin Dose 1 APPLIC; Start 07/22/18 at 22:00 Sodium Hypochlorite (Dakins Diluted ()) 1 applic BID TP Last administered on 07/30/18 09:36; Admin Dose 1 APPLIC; Start 07/23/18 at 15:00 Insulin Glargine (Lantus) 9 units DAILY@2000 SC Last administered on 07/29/18 20:39; Admin Dose 9 UNITS; Start 07/25/18 at 20:00 Cefepime HCl 50 ml @ 100 mls/hr Q12 IVPB Last administered on 07/30/18 09:35; Admin Dose 100 MLS/HR; Start 07/25/18 at 18:00 Tigecycline 50 mg/ Sodium Chloride 100 ml @ 200 mls/hr Q12H IVPB Last administered on 07/30/18 08:09; Admin Dose 200 MLS/HR; Start 07/25/18 at 20:00 Sodium Biphosphate/ Sodium Phosphate (Fleet Enema) 133 ml DAILY PRN [place] CONSTIPATION Last administered on 07/29/18 14:58; Admin Dose 133 ML; Start 07/26/18 at 13:00 SEBASTIAN BARRETO NP July 30, 2018 11:32
--- NOTE | 2018-07-30 13:43 | PN ---
Date/Time of Note Date/Time of Note DATE: 07/30/18 TIME: 13:42 Assessment/Plan VTE Prophylaxis Risk score (from Nsg)>0 risk: 5 Pharmacological prophylaxis: NA/contraindicated Pharm contraindication: surgical contra Lines/Catheters Urinary Cath still in place: No Assessment/Plan Hospital Course 48 yo female with h/o critical illness for which received vasopressors and developed digital ischemia who recovered but developed gangrene of toes and finger who was referred to hospital for evaluation of leukocytosis. Found to have OM of feet - Abx per ID -Amputation with podiatry planned for today DMII: - sliding scale insulin hypertension: - continue nifedipine, coreg DC planning: Surgery today Result Diagram: 07/27/18 0522 07/30/18 0615 Results 24hrs Laboratory Tests Test 07/29/18 17:34 07/29/18 20:37 07/30/18 06:15 07/30/18 07:57 Bedside Glucose 144 138 88 Sodium Level 141 Potassium Level 4.3 Chloride Level 113 H Carbon Dioxide Level 21 Anion Gap 7 Blood Urea Nitrogen 45 H Creatinine 1.09 H Est Glomerular 54 L Filtrat Rate mL/min Glucose Level 93 Calcium Level 9.1 Phosphorus Level 5.5 H Magnesium Level 1.8 Test 07/30/18 13:01 Bedside Glucose 92 Subjective 24 Hr Interval Summary Constitutional: no complaints Exam/Review of Systems Exam Vitals Vital Signs Date Temp Pulse Resp B/P (MAP) Pulse Ox O2 O2 Flow FiO2 Time Delivery Rate 07/30/18 97.8 72 16 121/72 100 Room Air 07:41 (88) Intake and Output 07/29/18 07/29/18 07/30/18 1515:00 23:00 07:00 IntakeIntake Total 1110 ml 100 ml 350 ml BalanceBalance 1110 ml 100 ml 350 ml Constitutional: alert, oriented Respiratory: clear to auscultation Cardiovascular: regular rate and rhythm Gastrointestinal: soft; No distended Musculoskeletal: No nl extremities to inspection Results Results 24hrs Laboratory Tests Test 07/29/18 17:34 07/29/18 20:37 07/30/18 06:15 07/30/18 07:57 Bedside Glucose 144 138 88 Sodium Level 141 Potassium Level 4.3 Chloride Level 113 H Carbon Dioxide Level 21 Anion Gap 7 Blood Urea Nitrogen 45 H Creatinine 1.09 H Est Glomerular 54 L Filtrat Rate mL/min Glucose Level 93 Calcium Level 9.1 Phosphorus Level 5.5 H Magnesium Level 1.8 Test 07/30/18 13:01 Bedside Glucose 92 Medications Medication Current Medications IV Flush (NS 3 ml) 3 ml PER PROTOCOL IV ; Start 07/21/18 at 20:30 Ondansetron HCl (Zofran Inj) 4 mg Q6H PRN IV NAUSEA/VOMITING; Start 07/21/18 at 20:30 Acetaminophen (Tylenol Tab) 650 mg Q6H PRN PO .PAIN 1-3 OR TEMP; Start 07/21/18 at 20:30 Morphine Sulfate (morphine) 2 mg Q4H PRN IV .SEVERE PAIN 7-10; Start 07/21/18 at 20:30 Docusate Sodium (Colace) 100 mg Q12H PRN PO .CONSTIPATION Last administered on 07/25/18 21:13; Admin Dose 100 MG; Start 07/21/18 at 20:30 Bisacodyl (Dulcolax) 5 mg DAILY PRN PO .CONSTIPATION Last administered on 07/24/18 16:17; Admin Dose 5 MG; Start 07/21/18 at 20:30 Carvedilol (Coreg) 25 mg BID PO Last administered on 07/30/18 08:02; Admin Dose 25 MG; Start 07/21/18 at 23:00 Nifedipine (Procardia Xl) 60 mg DAILY PO Last administered on 07/30/18 08:02; Admin Dose 60 MG; Start 07/22/18 at 09:00 Zinc Sulfate (Zinc Sulfate) 220 mg DAILY PO Last administered on 07/30/18 08:02; Admin Dose 220 MG; Start 07/22/18 at 09:00 Atorvastatin Calcium (Lipitor) 40 mg HS PO Last administered on 07/29/18 20:34; Admin Dose 40 MG; Start 07/21/18 at 23:21 Insulin Aspart (Novolog Insulin Pen) NOVOLOG *MILD* ALGORITHM WITH MEALS BEDTIME SC Last administered on 07/29/18 17:51; Admin Dose 1 UNIT; Start 07/22/18 at 08:00 Miscellaneous Information 1 ea NOTE XX ; Start 07/22/18 at 04:30 Glucose (Glutose) 15 gm Q15M PRN PO DECREASED GLUCOSE; Start 07/22/18 at 04:30 Glucose (Glutose) 22.5 gm Q15M PRN PO DECREASED GLUCOSE; Start 07/22/18 at 04:30 Dextrose (D50w Syringe) 25 ml Q15M PRN IV DECREASED GLUCOSE; Start 07/22/18 at 04:30 Dextrose (D50w Syringe) 50 ml Q15M PRN IV DECREASED GLUCOSE; Start 07/22/18 at 04:30 Glucagon (Glucagen) 1 mg Q15M PRN IM DECREASED GLUCOSE; Start 07/22/18 at 04:30 Glucose (Glutose) 15 gm Q15M PRN BUCCAL DECREASED GLUCOSE; Start 07/22/18 at 04:30 Collagenase (Santyl) 1 applic QAM TOP Last administered on 07/30/18 09:36; Admin Dose 1 APPLIC; Start 07/22/18 at 10:30 Gentamicin Sulfate (Gentamicin 0.1% Oint) 1 applic HS TOP Last administered on 07/29/18 23:15; Admin Dose 1 APPLIC; Start 07/22/18 at 21:00 Multi-Ingredient Ointment (Eucerin Cream) 1 applic BID TOP Last administered on 07/30/18 09:37; Admin Dose 1 APPLIC; Start 07/22/18 at 22:00 Sodium Hypochlorite (Dakins Diluted ()) 1 applic BID TP Last administered o n 07/30/18 09:36; Admin Dose 1 APPLIC; Start 07/23/18 at 15:00 Insulin Glargine (Lantus) 9 units DAILY@2000 SC Last administered on 07/29/18 20:39; Admin Dose 9 UNITS; Start 07/25/18 at 20:00 Cefepime HCl 50 ml @ 100 mls/hr Q12 IVPB Last administered on 07/30/18 09:35; Admin Dose 100 MLS/HR; Start 07/25/18 at 18:00 Tigecycline 50 mg/ Sodium Chloride 100 ml @ 200 mls/hr Q12H IVPB Last administered on 07/30/18 08:09; Admin Dose 200 MLS/HR; Start 07/25/18 at 20:00 Sodium Biphosphate/ Sodium Phosphate (Fleet Enema) 133 ml DAILY PRN RI CONSTIPATION Last administered on 07/29/18 14:58; Admin Dose 133 ML; Start 07/26/18 at 13:00 ANEL COTA July 30, 2018 13:42
[2018-07-30] MEDS: NA PHOSPHATE/BIPHOS 133 ML ENEMA PR PRN (13:55)
[2018-07-30 14:28] VITALS: BP 141/67; PULSE 78; RESP 16
[2018-07-30 19:30] VITALS: BP 136/73; PULSE 74; RESP 20
[2018-07-30] MEDS: GENTAMICIN 0.1% 15 GM OINT TOP SCH (20:10)
[2018-07-30] MEDS: INSULIN GLARGINE [LANTus] (100 UNITS/ML) SYG SC SCH (20:10)
[2018-07-30] MEDS: ATORVASTATIN 40 MG TAB PO SCH (20:10)
--- NOTE | 2018-07-30 21:36 | PREAC ---
Date/Time of Note Date/Time of Note DATE: 07/30/18 TIME: 21:33 Anesthesia Eval and Record Evaluation Time Pre-Procedure Interview DATE: 07/30/18 TIME: 21:33 Age 48 Sex female NPO: 8 hrs Preoperative diagnosis Bilat chronic lower extremity osteomyelitis Planned procedure Bilat lower extremites debridement Past Medical History Past Medical History: Includes Cardio: HTN, Dyslipidemia Endo: Diabetes Renal: ESRD on dialysis GI: Morbid obesity Surgery & Anesthesia Issues No known issue Meds Anticoagulation: Yes Beta Antoine within 24 hr: No Reason Beta Antoine not given: Pt. not on B-Antoine Active Scripts Sodium Hypochlorite (Di-Dak-Anais) 473 Ml Solution, 1 APPLIC TP BID for 10 Days, #1 1 Refill Prov:DANNY ARCHULETA MD 07/15/18 Lanolin/Mineral Oil (Thera-Derm Lotion) 236 Ml Lotion, 1 APPLIC TOP BID for 14 Days, #14 1 Refill Prov:DANNY ARCHULETA MD 07/15/18 Gentamicin Sulfate* (Gentamicin Sulfate* Oint) 0.1% - 30 Gm Oint..gm., 1 APPLIC TOP BID for 14 Days, #30 1 Refill Prov:DANNY ARCHULETA MD 07/15/18 Collagenase* (Santyl*) 30 Gm Oint..gm., 1 APPLIC TOP BID for 10 Days, #20 2 Re fills Prov:DANNY ARCHULETA MD 07/15/18 Ascorbic Acid (Vitamin C) 250 Mg Tab, 250 MG PO DAILY for 30 Days, #14 TAB Prov:DANNY ARCHULETA MD 07/15/18 Zinc Sulfate* (Zinc Sulfate*) 220 Mg Cap, 220 MG PO DAILY for 14 Days, #30 CAP Prov:DANNY ARCHULETA MD 07/15/18 Citric Acid/Sodium Citrate* (Bicitra* (PEDIATRIC)) 1 Meq/Ml Soln, 30 ML PO BID for 14 Days, #30 1 Refill Prov:DANNY ARCHULETA MD 07/15/18 Acetaminophen* (Tylenol*) 325 Mg Tablet, 650 MG PO Q6H PRN for .PAIN 1-3 OR TEMP for 14 Days, TAB Prov:DANNY ARCHULETA MD 07/15/18 Carvedilol* (Carvedilol*) 25 Mg Tablet, 25 MG PO BID for 10 Days, #20 TAB Prov:DANNY ARCHULETA MD 07/15/18 Nifedipine* (Nifedipine ER*) 60 Mg Tablet.sa, 60 MG PO DAILY, #60 TAB.SA Prov:ANEL COTA 02/09/18 Bethanechol Chloride* (Bethanechol Chloride*) 10 Mg Tablet, 10 MG PO TID, #90 TAB 1 Refill Prov:CIPRIANOANEL 02/09/18 Aspirin* (Aspirin* EC) 81 Mg Tablet.dr, 81 MG PO DAILY for 90 Days, #90 TAB 5 Refills Prov:BRET PARIKH MD 02/05/18 Metformin Hcl (Glucophage) 500 Mg Tablet, 1000 MG NGT BID WITH MEALS for 60 Days, #120 TAB 5 Refills Prov:BRET PARIKH MD 02/05/18 Atorvastatin* (Atorvastatin*) 40 Mg Tablet, 40 MG PO HS for 90 Days, #90 TAB 5 Refills Prov:BRET PARIKH MD 02/05/18 Current Medications IV Flush (NS 3 ml) 3 ml PER PROTOCOL IV ; Start 07/21/18 at 20:30 Ondansetron HCl (Zofran Inj) 4 mg Q6H PRN IV NAUSEA/VOMITING; Start 07/21/18 at 20:30 Acetaminophen (Tylenol Tab) 650 mg Q6H PRN PO .PAIN 1-3 OR TEMP; Start 07/21/18 at 20:30 Morphine Sulfate (morphine) 2 mg Q4H PRN IV .SEVERE PAIN 7-10; Start 07/21/18 at 20:30 Docusate Sodium (Colace) 100 mg Q12H PRN PO .CONSTIPATION Last administered on 07/25/18at 21:13; Admin Dose 100 MG; Start 07/21/18 at 20:30 Bisacodyl (Dulcolax) 5 mg DAILY PRN PO .CONSTIPATION Last administered on 07/24/18at 16:17; Admin Dose 5 MG; Start 07/21/18 at 20:30 Carvedilol (Coreg) 25 mg BID PO Last administered on 07/30/18at 08:02; Admin Dose 25 MG; Start 07/21/18 at 23:00 Nifedipine (Procardia Xl) 60 mg DAILY PO Last administered on 07/30/18 08:02; Admin Dose 60 MG; Start 07/22/18 at 09:00 Zinc Sulfate (Zinc Sulfate) 220 mg DAILY PO Last administered on 07/30/18 08:02; Admin Dose 220 MG; Start 07/22/18 at 09:00 Atorvastatin Calcium (Lipitor) 40 mg HS PO Last administered on 07/29/18 20:34; Admin Dose 40 MG; Start 07/21/18 at 23:21 Insulin Aspart (Novolog Insulin Pen) NOVOLOG *MILD* ALGORITHM WITH MEALS BEDTIME SC Last administered on 07/29/18 17:51; Admin Dose 1 UNIT; Start 07/22/18 at 08:00 Miscellaneous Information 1 ea NOTE XX ; Start 07/22/18 at 04:30 Glucose (Glutose) 15 gm Q15M PRN PO DECREASED GLUCOSE; Start 07/22/18 at 04:30 Glucose (Glutose) 22.5 gm Q15M PRN PO DECREASED GLUCOSE; Start 07/22/18 at 04:30 Dextrose (D50w Syringe) 25 ml Q15M PRN IV DECREASED GLUCOSE; Start 07/22/18 at 04:30 Dextrose (D50w Syringe) 50 ml Q15M PRN IV DECREASED GLUCOSE; Start 07/22/18 at 04:30 Glucagon (Glucagen) 1 mg Q15M PRN IM DECREASED GLUCOSE; Start 07/22/18 at 04:30 Glucose (Glutose) 15 gm Q15M PRN BUCCAL DECREASED GLUCOSE; Start 07/22/18 at 04:30 Collagenase (Santyl) 1 applic QAM TOP Last administered on 07/30/18 09:36; Admin Dose 1 APPLIC; Start 07/22/18 at 10:30 Gentamicin Sulfate (Gentamicin 0.1% Oint) 1 applic HS TOP Last administered on 07/29/18 23:15; Admin Dose 1 APPLIC; Start 07/22/18 at 21:00 Multi-Ingredient Ointment (Eucerin Cream) 1 applic BID TOP Last administered on 07/30/18 09:37; Admin Dose 1 APPLIC; Start 07/22/18 at 22:00 Sodium Hypochlorite (Dakins Diluted (40)) 1 applic BID TP Last administered on 07/30/18 09:36; Admin Dose 1 APPLIC; Start 07/23/18 at 15:00 Insulin Glargine (Lantus) 9 units DAILY@2000 SC Last administered on 07/29/18at 20:39; Admin Dose 9 UNITS; Start 07/25/18 at 20:00 Cefepime HCl 50 ml @ 100 mls/hr Q12 IVPB Last administered on 07/30/18at 09:35; Admin Dose 100 MLS/HR; Start 07/25/18 at 18:00 Tigecycline 50 mg/ Sodium Chloride 100 ml @ 200 mls/hr Q12H IVPB Last administered on 07/30/18at 08:09; Admin Dose 200 MLS/HR; Start 07/25/18 at 20:00 Sodium Biphosphate/ Sodium Phosphate (Fleet Enema) 133 ml DAILY PRN [place] CONSTIPATION Last administered on 07/30/18at 13:55; Admin Dose 133 ML; Start 07/26/18 at 13:00 Meds reviewed: Yes Allergies Coded Allergies: No Known Allergy (Unverified , 04/10/18) Allergies Reviewed: Yes Labs/Studies Labs Reviewed: Reviewed by anesthesiologist Result Diagram: 07/27/18 0522 07/30/18 0615 Laboratory Tests 07/30/18 06:15 test: Negative Studies: ECG Pre-procedure Exam Last vitals Vital Signs Date Temp Pulse Resp B/P (MAP) Pulse Ox O2 O2 Flow FiO2 Time Delivery Rate 07/30/18 98.0 74 20 136/73 99 19:30 (94) 07/30/18 Room Air 14:28 Airway: Adequate mouth opening, Adequate thyromental dist Mallampati: Mallampati III Teeth: Normal Lung: Normal Heart: Normal ASA Physical Status ASA physical status: 3 Emergency: None Planned Anesthetic General/MAC: MAC Planned Pain Management Parenteral pain med, Local by surgeon Pre-operative Attestations Prior to commencing anesthesia and surgery, the patient was re-evaluated, there was verification of: *The patient's identity *The results of appropriate recent lab work and preoperative vital signs *The above evaluation not changing prior to induction *Anesthetic plan, risk benefits, alternative and complications discussed with patient/family; questions answered; patient/family understands, accepts and wishes to proceed. JOHN SALAS MD July 30, 2018 21:36
[2018-07-30] MEDS ORDERED: MIDAZOLAM 1 MG/ML 2 ML INJ ONE (21:47)
[2018-07-30] MEDS ORDERED: FENTAnyl 50 MCG/ML VIAL ONE (21:48)
[2018-07-30] MEDS ORDERED: DIPHENHYDRAMINE 50 MG INJ IV PRN (22:00)
[2018-07-30] MEDS ORDERED: hydrALAzine 20 MG INJ IV PRN (22:00)
[2018-07-30] MEDS ORDERED: METOCLOPRAMIDE 10 MG INJ IV PRN (22:00)
[2018-07-30] MEDS ORDERED: FENTAnyl 50 MCG/ML VIAL IV PRN (22:00)
[2018-07-30] MEDS ORDERED: ONDANSETRON 4 MG INJ IV PRN (22:00)
[2018-07-30] MEDS ORDERED: HYDROmorphONE 1 MG/5 ML IV SYRINGE IV PRN ×2 (22:00)
[2018-07-30] MEDS ORDERED: LABETALOL HCL 20MG INJ IV PRN (22:00)
[2018-07-30] MEDS ORDERED: MEPERIDINE 25 MG INJ IV PRN (22:00)
[2018-07-30] MEDS ORDERED: PROPOFOL 40 ML ONE (23:49)
[2018-07-30] MEDS ORDERED: LIDOCAINE 2% (SDV) 5 ML INJ ONE (23:49)
[2018-07-30] MEDS ORDERED: CEFAZOLIN 1 GM INJ ONE (23:49)
[2018-07-31] VITALS (17 sets, daily range): BP systolic 119–158; BP diastolic 64–81; PULSE 68–80; RESP 9–22
--- NOTE | 2018-07-31 00:06 | PAC ---
Date/Time of Note Date/Time of Note DATE: 07/31/18 TIME: 00:05 Post-Anesthesia Notes Post-Anesthesia Note Last documented vital signs Vital Signs Date Temp Pulse Resp B/P (MAP) Pulse Ox O2 O2 Flow FiO2 Time Delivery Rate 07/31/18 98.0 00:03 07/30/18 74 20 136/73 99 19:30 (94) 07/30/18 Room Air 14:28 Activity: WNL Respiratory function: WNL Cardiovascular function: WNL Mental status: Baseline Pain reasonably controlled: Yes Hydration appropriate: Yes Nausea/Vomiting absent: Yes Comments BP:1112/74, P;70, Spo2:100%, T:98,8 JOHN SALAS MD July 31, 2018 00:06
[2018-07-31] MEDS: ACETAMINOPHEN 325 MG TAB PO PRN ×3 (06:59→20:53)
[2018-07-31] MEDS: INSULIN ASPART [NOVOLOG] 3 ML PEN SC SCH ×4 (08:00→20:54)
--- NOTE | 2018-07-31 08:20 | SIPON ---
Date/Time of Note Date/Time of Note DATE: 07/31/18 TIME: 08:18 Operative Report Preoperative Diagnosis Left foot gangrene Left foot ulceration with extensive tissue loss plantar aspect Osteomyelitis bilateral feet Right foot 3rd toe ulceration with bone exposure Gangrene right foot 4th and 5th toes Osteomyelitis right 5th metatarsal Right foot Postoperative Diagnosis same Operation/Procedure Performed Right foot 5th ray amputation Right foot 4th toe amputation Right foot 3rd toe excisional debridement bone 1x2cm Left foot transmetatarsal amputation metatarsal 2-5 Left hallux excisional debridement skin subcut bone 3x 4 cm Excisional debridement right plantar ulceration 15 x 3 cm skin, subcut, ligament, muscle Excisional debridement left plantar ulceration 15x4 cm skin,subcut, ligament, muscle Application of integra bilayer 105 cm2 Application of wound vac to bilateral feet > 100cm Surgeon see signature line 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
[2018-07-31] MEDS: TIGECYCLINE 50 MG in SOD CHLORIDE 0.9% 100 ML IVPB SCH ×2 (09:05→20:52)
[2018-07-31] MEDS: NIFEdipine (XL) 60 MG TAB PO SCH (09:06)
[2018-07-31] MEDS: ZINC SULFATE 220 MG CAP PO SCH (09:06)
[2018-07-31] MEDS: EUCERIN 113 GM CR TOP SCH ×2 (09:07→20:54)
[2018-07-31] MEDS: DAKINS 0.0125%(1/40) 473 ML SOLUTION TP SCH (09:07)
[2018-07-31] MEDS: COLLAGENASE 5 GM (UD JAR) TOP SCH (09:07)
[2018-07-31] MEDS: CEFEPIME 2GM/50 ML IVPB SCH ×2 (09:57→21:50)
--- NOTE | 2018-07-31 10:21 | OPR ---
DATE OF OPERATION: 07/30/2018 SURGEON: Hakan Davis DPM [employer] SUPERVISOR: David Rice MD PREOPERATIVE DIAGNOSES: 1. Left foot gangrene. 2. Left foot ulceration, plantar aspect with extensive tissue loss. 3. Osteomyelitis bilateral feet. 4. Right foot third toe amputation. 5. Right third toe ulceration with bone exposure, suspect osteomyelitis. 6. Gangrene, right foot fourth and fifth toes. 7. History of partial amputation of right third toe. 8. Osteomyelitis, right foot 5th metatarsal. 9. Diabetes. POSTOPERATIVE DIAGNOSES: 1. Left foot gangrene. 2. Left foot ulceration, plantar aspect with extensive tissue loss. 3. Osteomyelitis bilateral feet. 4. Right foot third toe amputation. 5. Right third toe ulceration with bone exposure, suspect osteomyelitis. 6. Gangrene, right foot fourth and fifth toes. 7. History of partial amputation of right third toe. 8. Osteomyelitis, right foot 5th metatarsal. 9. Diabetes. PROCEDURES PERFORMED: 1. Right foot fifth ray amputation. 2. Right foot fourth toe amputation, metatarsophalangeal joint. 3. Right foot third toe excisional debridement of bone, 1 x 2 cm. 4. Left foot transmetatarsal amputation of metatarsals 2, 3, 4 and 5. 5. Excisional debridement of left hallux ulceration skin, subcutaneous tissue and bone 3 x 4 cm. 6. Excisional debridement of right plantar ulceration 15 x 3 cm necrotic skin, subcutaneous tissue, ligament, muscle. 7. Excisional debridement of left plantar ulceration 15 x 4 cm necrotic skin, subcutaneous tissue, l igament and muscle. 8. Application of Integra bilayer 105 cm2 to bilateral feet. 9. Application of wound VAC to bilateral feet, greater than 100 cm2. PATHOLOGY: 1. Bone cultures, bone from the metatarsal, left foot. 2. Amputated gangrenous toes. ANESTHESIA: MAC. HEMOSTASIS: With compression. ESTIMATED BLOOD LOSS: 40 to 50 mL. MATERIALS: 3-0 nylon, skin lincoln, Integra bilayer. COMPLICATIONS: None. INDICATION FOR PROCEDURE: This is a 48-year-old female who had been hospitalized prior and treated f or sepsis, history of critical illness with treatment of the vasopressors and developed digital ische gaetano. Currently with mummified toes to the left and right foot. She has been seen as an outpatient o n a weekly basis and had partial right third toe amputation, open at the site of gangrenous demarcati on. She has persistent malodor to bilateral feet with underlying osteomyelitis. Attempts have been made to allow for demarcation. She had been on multiple courses of antibiotics, seen by osvaldo sweeney and she has had multiple consultations to assess vascularity and salvageability of her feet. The patient and family had been thoroughly educated. Risks, benefits, potential complications at hig h risk for bilateral limb amputation. The patient did have alternative surgical consultations. Sondra ent and family decided to proceed for operative intervention. She is at risk currently for further s epsis. All questions were answered to their satisfaction. The patient and family aware of the lengt hy recovery and staged interventions to be required. Did discuss alternative treatments with hyperba rics which they are interested, but on prior advice was not able to do so due to lack of transportati on. PROCEDURE IN DETAIL: The patient brought into the operating room and placed in the supine position. Formal timeout was performed. Bilateral feet were marked. Formal time-out performed. Extremities were prepped with Betadine scrub paint and draped in usual sterile fashion. Attention was directed t o the left foot and transmetatarsal amputation performed using a sagittal saw, transecting the neck o f the metatarsal of the 2nd, 3rd, 4th and 5th metatarsal. The toes were removed and using hydro surg ical instrumentation, all necrotic tissue was removed off of the bone, excising necrotic skin, subcut aneous tissue, and ligament. Attention was directed to the left hallux and using pickups, scissors, 15 blade, sagittal saw and Versajet excisional debridement of bone 2 or 3 cm performed left hallux. The patient had extensive ulceration in the plantar aspect and using the hydro surgical instrumentati on necrotic skin, subcutaneous tissue, fascia, tendon was debrided, measured estimated 15 x 4 cm. Ul ceration was then copiously irrigated with saline with pulse lavage and subsequently with bacitracin solution. Bone was obtained from the left second metatarsal for pathology and for culture. At this time, an Integra bilayer was applied to the surface of the left foot ulceration, secured with 3-0 nyl on. A portion of the fourth and fifth metatarsals were also wrapped with the graft material. Attent ion was directed to the right foot. The fourth, fifth toes appeared to be partially attached by tend on. Starting to auto-amputate, toe was transected at that level and attention to the third toe and p artial amputation, but been performed with now persistent bone exposure. Using a rongeur, excisional debridement of bone, 1 x 2 cm. There is an ulceration at the fifth metatarsal, which was excised. The fifth metatarsal head was exposed, discolored, brownish. Sagittal saw was used to transect the f ifth metatarsal head. At this time, using the pickups, scissors, 15 blade, hydro surgical instrument ation, excisional debridement of right foot ulceration 15 x 3 cm and then subsequently irrigated with pulse lavage and bacitracin. The wound was then covered with the Integra bilayer using combination of skin lincoln and 3-0 nylon. The ulcerations on the third, fourth and fifth toes were closed using 3-0 nylon. The wounds were then covered with Acticoat dressing followed by negative pressure wound therapy and fully functioning 125 mmHg. Independent VAC machines were used for each limb and feet we re then wrapped with Kerlix, soft roll, Webril and bias. The patient had estimated blood loss of 40 mL. Hemostasis had been achieved and the patient transferred with vital signs stable. POSTOPERATIVE PLAN: Recommend elevation of extremity. Continue antibiotics, follow up on the cultur e and pathology results and further recommendations pending. Dictated By: HAKAN SPARKS/LESLIE Conf#: [id number] DID#: [id number]
--- NOTE | 2018-07-31 12:46 | CONS ---
Assessment/Plan Assessment/Plan Hospital Course (Demo Recall) 1. Nonoliguric acute kidney injury on top of chronic kidney disease with previous baseline creatinine 1.2 to 1.3 mg/dL. Etiology of acute kidney injury is secondary to hemodynamics. Renal function is stabilizing. Continue current treatment plan, supportive care, renally dose all meds. no labs today 2. Anemia. Continue to monitor hemoglobin and hematocrit levels. 3. Mineral bone disorder. Monitor calcium and phosphorus levels. 4. Bilateral gangrenous foot with osteomyelitis. The patient has been seen by podiatry and vascular surgery pending possible amputation. Continue to monitor. Continue wound care. 5. Diabetes. Continue current insulin regimen. 6. Neurogenic bladder. Continue to monitor. Intermittent catheterization as needed. 7. Sepsis secondary to osteomyelitis. Continue current antibiotic therapy per infectious disease. 8. History of cerebrovascular accident. 9. Encephalopathy, improved. Consultation Date/Type/Reason Admit Date/Time July 21, 2018 at 20:31 Initial Consult Date Date/Time of Note DATE: 07/31/18 TIME: 12:45 24 HR Interval Summary Free Text/Dictation remained stable gen nad cv rrr pulm ctab abd soft, nd, nt +bs ext: no edema Exam/Review of Systems Exam Vitals Vital Signs Date Temp Pulse Resp B/P (MAP) Pulse Ox O2 O2 Flow FiO2 Time Delivery Rate 07/31/18 98.2 71 18 141/77 100 07:40 (98) 07/31/18 Room Air 01:02 Intake and Output 07/30/18 07/30/18 07/31/18 1515:00 23:00 07:00 IntakeIntake Total 120 ml 500 ml 480 ml OutputOutput Total 50 ml BalanceBalance 120 ml 500 ml 430 ml Results Result Diagram: 07/27/18 0522 07/30/18 0615 Results 24hrs Laboratory Tests Test 07/30/18 13:01 07/30/18 17:10 07/31/18 00:10 07/31/18 09:00 Bedside Glucose 92 90 83 86 Medications Medication Current Medications IV Flush (NS 3 ml) 3 ml PER PROTOCOL IV ; Start 07/21/18 at 20:30 Ondansetron HCl (Zofran Inj) 4 mg Q6H PRN IV NAUSEA/VOMITING; Start 07/21/18 at 20:30 Acetaminophen (Tylenol Tab) 650 mg Q6H PRN PO .PAIN 1-3 OR TEMP Last administered on 07/31/18 06:59; Admin Dose 650 MG; Start 07/21/18 at 20:30 Morphine Sulfate (morphine) 2 mg Q4H PRN IV .SEVERE PAIN 7-10; Start 07/21/18 at 20:30 Docusate Sodium (Colace) 100 mg Q12H PRN PO .CONSTIPATION Last administered on 07/25/18 21:13; Admin Dose 100 MG; Start 07/21/18 at 20:30 Bisacodyl (Dulcolax) 5 mg DAILY PRN PO .CONSTIPATION Last administered on 07/24/18 16:17; Admin Dose 5 MG; Start 07/21/18 at 20:30 Carvedilol (Coreg) 25 mg BID PO Last administered on 07/31/18 09:06; Admin Dose 25 MG; Start 07/21/18 at 23:00 Nifedipine (Procardia Xl) 60 mg DAILY PO Last administered on 07/31/18 09:06; Admin Dose 60 MG; Start 07/22/18 at 09:00 Zinc Sulfate (Zinc Sulfate) 220 mg DAILY PO Last administered on 07/31/18 09:06; Admin Dose 220 MG; Start 07/22/18 at 09:00 Atorvastatin Calcium (Lipitor) 40 mg HS PO Last administered on 07/29/18 20:34; Admin Dose 40 MG; Start 07/21/18 at 23:21 Insulin Aspart (Novolog Insulin Pen) NOVOLOG *MILD* ALGORITHM WITH MEALS BEDTIME SC Last administered on 07/29/18 17:51; Admin Dose 1 UNIT; Start 07/22/18 at 08:00 Miscellaneous Information 1 ea NOTE XX ; Start 07/22/18 at 04:30 Glucose (Glutose) 15 gm Q15M PRN PO DECREASED GLUCOSE; Start 07/22/18 at 04:30 Glucose (Glutose) 22.5 gm Q15M PRN PO DECREASED GLUCOSE; Start 07/22/18 at 04:30 Dextrose (D50w Syringe) 25 ml Q15M PRN IV DECREASED GLUCOSE; Start 07/22/18 at 04:30 Dextrose (D50w Syringe) 50 ml Q15M PRN IV DECREASED GLUCOSE; Start 07/22/18 at 04:30 Glucagon (Glucagen) 1 mg Q15M PRN IM DECREASED GLUCOSE; Start 07/22/18 at 04:30 Glucose (Glutose) 15 gm Q15M PRN BUCCAL DECREASED GLUCOSE; Start 07/22/18 at 04:30 Collagenase (Santyl) 1 applic QAM TOP Last administered on 07/31/18 09:07; Admin Dose 1 APPLIC; Start 07/22/18 at 10:30 Gentamicin Sulfate (Gentamicin 0.1% Oint) 1 applic HS TOP Last administered on 07/29/18 23:15; Admin Dose 1 APPLIC; Start 07/22/18 at 21:00 Multi-Ingredient Ointment (Eucerin Cream) 1 applic BID TOP Last administered on 07/31/18 09:07; Admin Dose 1 APPLIC; Start 07/22/18 at 22:00 Sodium Hypochlorite (Dakins Diluted ()) 1 applic BID TP Last administered on 07/31/18 09:07; Admin Dose 1 APPLIC; Start 07/23/18 at 15:00 Insulin Glargine (Lantus) 9 units DAILY@2000 SC Last administered on 07/29/18 20:39; Admin Dose 9 UNITS; Start 07/25/18 at 20:00 Cefepime HCl 50 ml @ 100 mls/hr Q12 IVPB Last administered on 07/31/18 09:57; Admin Dose 100 MLS/HR; Start 07/25/18 at 18:00 Tigecycline 50 mg/ Sodium Chloride 100 ml @ 200 mls/hr Q12H IVPB Last administered on 07/31/18 09:05; Admin Dose 200 MLS/HR; Start 07/25/18 at 20:00 Sodium Biphosphate/ Sodium Phosphate (Fleet Enema) 133 ml DAILY PRN [place] CONSTIPATION Last administered on 07/30/18 13:55; Admin Dose 133 ML; Start 07/26/18 at 13:00 BRENNON HASSAN MD July 31, 2018 12:46
--- NOTE | 2018-07-31 16:12 | PN ---
Date/Time of Note Date/Time of Note DATE: 07/31/18 TIME: 16:10 Assessment/Plan VTE Prophylaxis Risk score (from Ns)>0 risk: 5 Pharmacological prophylaxis: NA/contraindicated Pharm contraindication: surgical contra Lines/Catheters Urinary Cath still in place: No Assessment/Plan Hospital Course 48 yo female with h/o septic shock secondary to nephrolithiasis with DIC, multiple CVAs and digital ischemia who recovered but developed gangrene of toes and finger who was referred to hospital for evaluation of leukocytosis. Found to have OM of feet -Patient is now status post amputations in both feet -Continue wound VAC and wound care DMII: - sliding scale insulin hypertension: - continue nifedipine, coreg DC planning: Postop care Result Diagram: 07/27/18 0522 07/30/18 0615 Results 24hrs Laboratory Tests Test 07/30/18 17:10 07/31/18 00:10 07/31/18 09:00 07/31/18 12:56 Bedside Glucose 90 83 86 107 Subjective 24 Hr Interval Summary Constitutional: no complaints Exam/Review of Systems Exam Vitals Vital Signs Date Temp Pulse Resp B/P (MAP) Pulse Ox O2 O2 Flow FiO2 Time Delivery Rate 07/31/18 98.0 80 18 158/81 100 13:06 (106) 07/31/18 Room Air 01:02 Intake and Output 07/30/18 07/30/18 07/31/18 1414:59 22:59 06:59 IntakeIntake Total 120 ml 500 ml 480 ml OutputOutput Total 50 ml BalanceBalance 120 ml 500 ml 430 ml Constitutional: alert, oriented Respiratory: clear to auscultation Cardiovascular: regular rate and rhythm Gastrointestinal: soft; No distended Musculoskeletal: No nl extremities to inspection Results Results 24hrs Laboratory Tests Test 07/30/18 17:10 07/31/18 00:10 07/31/18 09:00 07/31/18 12:56 Bedside Glucose 90 83 86 107 Medications Medication Current Medications IV Flush (NS 3 ml) 3 ml PER PROTOCOL IV ; Start 07/21/18 at 20:30 Ondansetron HCl (Zofran Inj) 4 mg Q6H PRN IV NAUSEA/VOMITING; Start 07/21/18 at 20:30 Acetaminophen (Tylenol Tab) 650 mg Q6H PRN PO .PAIN 1-3 OR TEMP Last administered on 07/31/18 13:03; Admin Dose 650 MG; Start 07/21/18 at 20:30 Morphine Sulfate (morphine) 2 mg Q4H PRN IV .SEVERE PAIN 7-10; Start 07/21/18 at 20:30 Docusate Sodium (Colace) 100 mg Q12H PRN PO .CONSTIPATION Last administered on 07/25/18 21:13; Admin Dose 100 MG; Start 07/21/18 at 20:30 Bisacodyl (Dulcolax) 5 mg DAILY PRN PO .CONSTIPATION Last administered on 07/24/18 16:17; Admin Dose 5 MG; Start 07/21/18 at 20:30 Carvedilol (Coreg) 25 mg BID PO Last administered on 07/31/18 09:06; Admin Dose 25 MG; Start 07/21/18 at 23:00 Nifedipine (Procardia Xl) 60 mg DAILY PO Last administered on 07/31/18 09:06; Admin Dose 60 MG; Start 07/22/18 at 09:00 Zinc Sulfate (Zinc Sulfate) 220 mg DAILY PO Last administered on 07/31/18 09:06; Admin Dose 220 MG; Start 07/22/18 at 09:00 Atorvastatin Calcium (Lipitor) 40 mg HS PO Last administered on 07/29/18 20:34; Admin Dose 40 MG; Start 07/21/18 at 23:21 Insulin Aspart (Novolog Insulin Pen) NOVOLOG *MILD* ALGORITHM WITH MEALS BEDTIME SC Last administered on 07/29/18 17:51; Admin Dose 1 UNIT; Start 07/22/18 at 08:00 Miscellaneous Information 1 ea NOTE XX ; Start 07/22/18 at 04:30 Glucose (Glutose) 15 gm Q15M PRN PO DECREASED GLUCOSE; Start 07/22/18 at 04:30 Glucose (Glutose) 22.5 gm Q15M PRN PO DECREASED GLUCOSE; Start 07/22/18 at 04:30 Dextrose (D50w Syringe) 25 ml Q15M PRN IV DECREASED GLUCOSE; Start 07/22/18 at 04:30 Dextrose (D50w Syringe) 50 ml Q15M PRN IV DECREASED GLUCOSE; Start 07/22/18 at 04:30 Glucagon (Glucagen) 1 mg Q15M PRN IM DECREASED GLUCOSE; Start 07/22/18 at 04:30 Glucose (Glutose) 15 gm Q15M PRN BUCCAL DECREASED GLUCOSE; Start 07/22/18 at 04:30 Collagenase (Santyl) 1 applic QAM TOP Last administered on 07/31/18 09:07; Admin Dose 1 APPLIC; Start 07/22/18 at 10:30 Gentamicin Sulfate (Gentamicin 0.1% Oint) 1 applic HS TOP Last administered on 07/29/18 23:15; Admin Dose 1 APPLIC; Start 07/22/18 at 21:00 Multi-Ingredient Ointment (Eucerin Cream) 1 applic BID TOP Last administered on 07/31/18 09:07; Admin Dose 1 APPLIC; Start 07/22/18 at 22:00 Sodium Hypochlorite (Dakins Diluted ()) 1 applic BID TP Last administered on 07/31/18 09:07; Admin Dose 1 APPLIC; Start 07/23/18 at 15:00 Insulin Glargine (Lantus) 9 units DAILY@2000 SC Last administered on 07/29/18 20:39; Admin Dose 9 UNITS; Start 07/25/18 at 20:00 Cefepime HCl 50 ml @ 100 mls/hr Q12 IVPB Last administered on 07/31/18 09:57; Admin Dose 100 MLS/HR; Start 07/25/18 at 18:00 Tigecycline 50 mg/ Sodium Chloride 100 ml @ 200 mls/hr Q12H IVPB Last administered on 07/31/18 09:05; Admin Dose 200 MLS/HR; Start 07/25/18 at 20:00 Sodium Biphosphate/ Sodium Phosphate (Fleet Enema) 133 ml DAILY PRN [place] CONSTIPATION Last administered on 07/30/18 13:55; Admin Dose 133 ML; Start 07/26/18 at 13:00 ANEL COTA July 31, 2018 16:12
--- NOTE | 2018-07-31 18:56 | CONS ---
Assessment/Plan Assessment/Plan Hospital Course (Demo Recall) ID PROGRESS NOTE CURRENT ABX: DAY # Tygacil, Cefepime 07/27/18 0522 07/30/18 0615 24H INTERVAL SUMMARY * a/a/o -- no fevers, VSS, NAD, * Wound vac in place -- s/p tissue cx yesterday pending micro MICRO * 07/30/18 TISSUE (BIOPSY) CULTURE Preliminary NO GROWTH AFTER 1 DAY * 07/21/18 BCX (-) * 07/22/18: LEFT FOOT WOUND CULTURE Final Organism 1 ACINETOBACTER BAUMANNII QUANTITY 3+ Organism 2 CORYNEBACTERIUM SPECIES QUANTITY 3+ Organism 3 ENTEROCOCCUS SPECIES QUANTITY ISOLATED FROM BROTH ONLY * 07/22/18: RIGHT FOOT WOUND CULTURE Final Organism 1 ACINETOBACTER BAUMANNII QUANTITY 3+ Organism 2 CORYNEBACTERIUM SPECIES QUANTITY 3+ Organism 3 ENTEROCOCCUS SPECIES QUANTITY ISOLATED FROM BROTH ONLY Organism 4 ESCHERICHIA COLI QUANTITY ISOLATED FROM BROTH ONLY PHYSICAL EXAMINATION: GENERAL: VSS, NAD HEENT: AT, NC, anicteric, NECK: Supple, CHEST:Equal chest rise bilaterally, without dyspnea on observation HEART: Pulse RRR ABDOMEN: EXTREMITIES: Warm, dry ==> BLEXT DSG c/d/i SKIN: No rash, no diaphoresis ID ASSESSMENT 48 yo F admit with: 1. Bilateral lower extremities gangrene/Osteomyelitis 2. Chronic kidney disease, history of hemodialysis 3. Diabetes 4. RUE PICC (-)MRSA Nares ABX ALLERGIES: KNDA INVASIVES: PIV CURRENT ABX: DAY # Tygacil + Cefepime ID RECOMMENDATIONS/PLAN: 1. Continue current ABX 2. f/u on Tissue Bx pending . Consultation Date/Type/Reason Admit Date/Time July 21, 2018 at 20:31 Initial Consult Date Date/Time of Note DATE: 07/31/18 TIME: 18:50 Exam/Review of Systems Exam Vitals Vital Signs Date Temp Pulse Resp B/P (MAP) Pulse Ox O2 O2 Flow FiO2 Time Delivery Rate 07/31/18 98.0 80 18 158/81 100 13:06 (106) 07/31/18 Room Air 01:02 Intake and Output 07/30/18 07/30/18 07/31/18 1414:59 22:59 06:59 IntakeIntake Total 270 ml 500 ml 480 ml OutputOutput Total 50 ml BalanceBalance 270 ml 500 ml 430 ml Results Result Diagram: 07/27/18 0522 07/30/18 0615 Results 24hrs Laboratory Tests Test 07/31/18 00:10 07/31/18 09:00 07/31/18 12:56 07/31/18 17:35 Bedside Glucose 83 86 107 137 Medications Medication Current Medications IV Flush (NS 3 ml) 3 ml PER PROTOCOL IV ; Start 07/21/18 at 20:30 Ondansetron HCl (Zofran Inj) 4 mg Q6H PRN IV NAUSEA/VOMITING; Start 07/21/18 at 20:30 Acetaminophen (Tylenol Tab) 650 mg Q6H PRN PO .PAIN 1-3 OR TEMP Last administered on 07/31/18 13:03; Admin Dose 650 MG; Start 07/21/18 at 20:30 Morphine Sulfate (morphine) 2 mg Q4H PRN IV .SEVERE PAIN 7-10; Start 07/21/18 at 20:30 Docusate Sodium (Colace) 100 mg Q12H PRN PO .CONSTIPATION Last administered on 07/25/18 21:13; Admin Dose 100 MG; Start 07/21/18 at 20:30 Bisacodyl (Dulcolax) 5 mg DAILY PRN PO .CONSTIPATION Last administered on 07/24/18 16:17; Admin Dose 5 MG; Start 07/21/18 at 20:30 Carvedilol (Coreg) 25 mg BID PO Last administered on 07/31/18 09:06; Admin Dose 25 MG; Start 07/21/18 at 23:00 Nifedipine (Procardia Xl) 60 mg DAILY PO Last administered on 07/31/18 09:06; Admin Dose 60 MG; Start 07/22/18 at 09:00 Zinc Sulfate (Zinc Sulfate) 220 mg DAILY PO Last administered on 07/31/18 09:06; Admin Dose 220 MG; Start 07/22/18 at 09:00 Atorvastatin Calcium (Lipitor) 40 mg HS PO Last administered on 07/29/18 20:34; Admin Dose 40 MG; Start 07/21/18 at 23:21 Insulin Aspart (Novolog Insulin Pen) NOVOLOG *MILD* ALGORITHM WITH MEALS BEDTIME SC Last administered on 07/29/18 17:51; Admin Dose 1 UNIT; Start 07/22/18 at 08:00 Miscellaneous Information 1 ea NOTE XX ; Start 07/22/18 at 04:30 Glucose (Glutose) 15 gm Q15M PRN PO DECREASED GLUCOSE; Start 07/22/18 at 04:30 Glucose (Glutose) 22.5 gm Q15M PRN PO DECREASED GLUCOSE; Start 07/22/18 at 04:30 Dextrose (D50w Syringe) 25 ml Q15M PRN IV DECREASED GLUCOSE; Start 07/22/18 at 04:30 Dextrose (D50w Syringe) 50 ml Q15M PRN IV DECREASED GLUCOSE; Start 07/22/18 at 04:30 Glucagon (Glucagen) 1 mg Q15M PRN IM DECREASED GLUCOSE; Start 07/22/18 at 04:30 Glucose (Glutose) 15 gm Q15M PRN BUCCAL DECREASED GLUCOSE; Start 07/22/18 at 04:30 Collagenase (Santyl) 1 applic QAM TOP Last administered on 07/31/18 09:07; Admin Dose 1 APPLIC; Start 07/22/18 at 10:30 Gentamicin Sulfate (Gentamicin 0.1% Oint) 1 applic HS TOP Last administered on 07/29/18 23:15; Admin Dose 1 APPLIC; Start 07/22/18 at 21:00 Multi-Ingredient Ointment (Eucerin Cream) 1 applic BID TOP Last administered on 07/31/18 09:07; Admin Dose 1 APPLIC; Start 07/22/18 at 22:00 Sodium Hypochlorite (Dakins Diluted (40)) 1 applic BID TP Last administered on 07/31/18 09:07; Admin Dose 1 APPLIC; Start 07/23/18 at 15:00 Insulin Glargine (Lantus) 9 units DAILY@2000 SC Last administered on 07/29/18 20:39; Admin Dose 9 UNITS; Start 07/25/18 at 20:00 Cefepime HCl 50 ml @ 100 mls/hr Q12 IVPB Last administered on 07/31/18 09:57; Admin Dose 100 MLS/HR; Start 07/25/18 at 18:00 Tigecycline 50 mg/ Sodium Chloride 100 ml @ 200 mls/hr Q12H IVPB Last administered on 07/31/18 09:05; Admin Dose 200 MLS/HR; Start 07/25/18 at 20:00 Sodium Biphosphate/ Sodium Phosphate (Fleet Enema) 133 ml DAILY PRN [place] CONSTIPATION Last administered on 07/30/18at 13:55; Admin Dose 133 ML; Start 07/26/18 at 13:00 DONALD FITZGERALD NP July 31, 2018 18:56
[2018-07-31] MEDS: ATORVASTATIN 40 MG TAB PO SCH (20:52)
[2018-07-31] MEDS: INSULIN GLARGINE [LANTus] (100 UNITS/ML) SYG SC SCH (20:58)
[2018-07-31] MEDS: GENTAMICIN 0.1% 15 GM OINT TOP SCH (21:00)
[2018-08-01 02:00] VITALS: BP 130/67; PULSE 77; RESP 18
[2018-08-01] MEDS: INSULIN ASPART [NOVOLOG] 3 ML PEN SC SCH ×4 (08:00→20:55)
[2018-08-01 08:12] VITALS: BP 114/67; PULSE 78; RESP 18
[2018-08-01] MEDS: ACETAMINOPHEN 325 MG TAB PO PRN ×2 (08:42→18:41)
[2018-08-01] MEDS: TIGECYCLINE 50 MG in SOD CHLORIDE 0.9% 100 ML IVPB SCH ×2 (09:44→19:57)
[2018-08-01] MEDS: ZINC SULFATE 220 MG CAP PO SCH (09:44)
[2018-08-01] MEDS: NIFEdipine (XL) 60 MG TAB PO SCH (09:44)
[2018-08-01] MEDS: EUCERIN 113 GM CR TOP SCH ×2 (09:45→20:55)
--- NOTE | 2018-08-01 10:25 | PN ---
Date/Time of Note Date/Time of Note DATE: 08/01/18 TIME: 10:23 Assessment/Plan VTE Prophylaxis Risk score (from Ns)>0 risk: 5 Pharmacological prophylaxis: NA/contraindicated Pharm contraindication: surgical contra Lines/Catheters Urinary Cath still in place: No Assessment/Plan Hospital Course 48 yo female with h/o septic shock secondary to nephrolithiasis with DIC, multiple CVAs and digital ischemia who recovered but developed gangrene of toes and finger who was referred to hospital for evaluation of leukocytosis. Found to have OM of feet -Patient is now status post amputations in both feet -Continue wound VAC and wound care -Continue PT -ID managing antibiotics DMII: - sliding scale insulin hypertension: - continue nifedipine, coreg DC planning: Postop care, anticipate DC to home with home health in the next several days Result Diagram: 07/30/18 0615 Results 24hrs Laboratory Tests Test 07/31/18 12:56 07/31/18 17:35 07/31/18 20:51 08/01/18 08:02 Bedside Glucose 107 137 174 104 Subjective 24 Hr Interval Summary Constitutional: no complaints Exam/Review of Systems Exam Vitals Vital Signs Date Temp Pulse Resp B/P (MAP) Pulse Ox O2 O2 Flow FiO2 Time Delivery Rate 08/01/18 98.1 78 18 114/67 99 08:12 (83) 07/31/18 Room Air 01:02 Intake and Output 07/31/18 07/31/18 08/01/18 1515:00 23:00 07:00 IntakeIntake Total 1310 ml 1230 ml OutputOutput Total 30 ml BalanceBalance 1310 ml 1230 ml -30 ml Constitutional: alert, oriented Respiratory: clear to auscultation Cardiovascular: regular rate and rhythm Gastrointestinal: soft; No distended Musculoskeletal: nl extremities to inspection Results Results 24hrs Laboratory Tests Test 07/31/18 12:56 07/31/18 17:35 07/31/18 20:51 08/01/18 08:02 Bedside Glucose 107 137 174 104 Medications Medication Current Medications IV Flush (NS 3 ml) 3 ml PER PROTOCOL IV ; Start 07/21/18 at 20:30 Ondansetron HCl (Zofran Inj) 4 mg Q6H PRN IV NAUSEA/VOMITING; Start 07/21/18 at 20:30 Acetaminophen (Tylenol Tab) 650 mg Q6H PRN PO .PAIN 1-3 OR TEMP Last administered on 08/01/18 08:42; Admin Dose 650 MG; Start 07/21/18 at 20:30 Morphine Sulfate (morphine) 2 mg Q4H PRN IV .SEVERE PAIN 7-10; Start 07/21/18 at 20:30 Docusate Sodium (Colace) 100 mg Q12H PRN PO .CONSTIPATION Last administered on 07/25/18 21:13; Admin Dose 100 MG; Start 07/21/18 at 20:30 Bisacodyl (Dulcolax) 5 mg DAILY PRN PO .CONSTIPATION Last administered on 07/24/18 16:17; Admin Dose 5 MG; Start 07/21/18 at 20:30 Carvedilol (Coreg) 25 mg BID PO Last administered on 08/01/18 09:44; Admin Dose 25 MG; Start 07/21/18 at 23:00 Nifedipine (Procardia Xl) 60 mg DAILY PO Last administered on 08/01/18 09:44; Admin Dose 60 MG; Start 07/22/18 at 09:00 Zinc Sulfate (Zinc Sulfate) 220 mg DAILY PO Last administered on 08/01/18 09:44; Admin Dose 220 MG; Start 07/22/18 at 09:00 Atorvastatin Calcium (Lipitor) 40 mg HS PO Last administered on 07/31/18 20:52; Admin Dose 40 MG; Start 07/21/18 at 23:21 Insulin Aspart (Novolog Insulin Pen) NOVOLOG *MILD* ALGORITHM WITH MEALS BEDTIME SC Last administered on 07/29/18 17:51; Admin Dose 1 UNIT; Start 07/22/18 at 08:00 Miscellaneous Information 1 ea NOTE XX ; Start 07/22/18 at 04:30 Glucose (Glutose) 15 gm Q15M PRN PO DECREASED GLUCOSE; Start 07/22/18 at 04:30 Glucose (Glutose) 22.5 gm Q15M PRN PO DECREASED GLUCOSE; Start 07/22/18 at 04:30 Dextrose (D50w Syringe) 25 ml Q15M PRN IV DECREASED GLUCOSE; Start 07/22/18 at 04:30 Dextrose (D50w Syringe) 50 ml Q15M PRN IV DECREASED GLUCOSE; Start 07/22/18 at 04:30 Glucagon (Glucagen) 1 mg Q15M PRN IM DECREASED GLUCOSE; Start 07/22/18 at 04:30 Glucose (Glutose) 15 gm Q15M PRN BUCCAL DECREASED GLUCOSE; Start 07/22/18 at 04:30 Gentamicin Sulfate (Gentamicin 0.1% Oint) 1 applic HS TOP Last administered on 07/29/18 23:15; Admin Dose 1 APPLIC; Start 07/22/18 at 21:00 Multi-Ingredient Ointment (Eucerin Cream) 1 applic BID TOP Last administered on 08/01/18 09:45; Admin Dose 1 APPLIC; Start 07/22/18 at 22:00 Insulin Glargine (Lantus) 9 units DAILY@2000 SC Last administered on 07/31/18 20:58; Admin Dose 9 UNITS; Start 07/25/18 at 20:00 Cefepime HCl 50 ml @ 100 mls/hr Q12 IVPB Last administered on 07/31/18 21:50; Admin Dose 100 MLS/HR; Start 07/25/18 at 18:00 Tigecycline 50 mg/ Sodium Chloride 100 ml @ 200 mls/hr Q12H IVPB Last administered on 08/01/18 09:44; Admin Dose 200 MLS/HR; Start 07/25/18 at 20:00 Sodium Biphosphate/ Sodium Phosphate (Fleet Enema) 133 ml DAILY PRN [place] CONSTIPATION Last administered on 07/30/18 13:55; Admin Dose 133 ML; Start 07/26/18 at 13:00 ANEL COTA August 01, 2018 10:25
[2018-08-01] MEDS: CEFEPIME 2GM/50 ML IVPB SCH ×2 (11:35→20:50)
--- NOTE | 2018-08-01 12:13 | CONS ---
Assessment/Plan Assessment/Plan Hospital Course (Demo Recall) 1. Nonoliguric acute kidney injury on top of chronic kidney disease. Etiology of acute kidney injury is secondary to hemodynamics. Renal function is stabilizing. Continue current treatment plan, supportive care, renally dose all meds. no labs today 2. Anemia. Continue to monitor hemoglobin and hematocrit levels. 3. Mineral bone disorder. Monitor calcium and phosphorus levels. 4. Bilateral gangrenous foot with osteomyelitis. The patient has been seen by podiatry and vascular surgery pending possible amputation. Continue to monitor. Continue wound care. 5. Diabetes. Continue current insulin regimen. 6. Neurogenic bladder. Continue to monitor. Intermittent catheterization as needed. 7. Sepsis secondary to osteomyelitis. Continue current antibiotic therapy per infectious disease. 8. History of cerebrovascular accident. 9. Encephalopathy, improved. Consultation Date/Type/Reason Admit Date/Time July 21, 2018 at 20:31 Initial Consult Date Date/Time of Note DATE: 08/01/18 TIME: 12:12 24 HR Interval Summary Free Text/Dictation denies shortness of Breath, n/v or urinary issues Exam/Review of Systems Exam Vitals Vital Signs Date Temp Pulse Resp B/P (MAP) Pulse Ox O2 O2 Flow FiO2 Time Delivery Rate 08/01/18 98.1 78 18 114/67 99 08:12 (83) 07/31/18 Room Air 01:02 Intake and Output 07/31/18 07/31/18 08/01/18 1515:00 23:00 07:00 IntakeIntake Total 1310 ml 1230 ml OutputOutput Total 30 ml BalanceBalance 1310 ml 1230 ml -30 ml Results Result Diagram: 07/30/18 0615 Results 24hrs Laboratory Tests Test 07/31/18 12:56 07/31/18 17:35 07/31/18 20:51 08/01/18 08:02 Bedside Glucose 107 137 174 104 Medications Medication Current Medications IV Flush (NS 3 ml) 3 ml PER PROTOCOL IV ; Start 07/21/18 at 20:30 Ondansetron HCl (Zofran Inj) 4 mg Q6H PRN IV NAUSEA/VOMITING; Start 07/21/18 at 20:30 Acetaminophen (Tylenol Tab) 650 mg Q6H PRN PO .PAIN 1-3 OR TEMP Last administered on 08/01/18at 08:42; Admin Dose 650 MG; Start 07/21/18 at 20:30 Morphine Sulfate (morphine) 2 mg Q4H PRN IV .SEVERE PAIN 7-10; Start 07/21/18 at 20:30 Docusate Sodium (Colace) 100 mg Q12H PRN PO .CONSTIPATION Last administered on 07/25/18 21:13; Admin Dose 100 MG; Start 07/21/18 at 20:30 Bisacodyl (Dulcolax) 5 mg DAILY PRN PO .CONSTIPATION Last administered on 07/24/18 16:17; Admin Dose 5 MG; Start 07/21/18 at 20:30 Carvedilol (Coreg) 25 mg BID PO Last administered on 08/01/18 09:44; Admin Dose 25 MG; Start 07/21/18 at 23:00 Nifedipine (Procardia Xl) 60 mg DAILY PO Last administered on 08/01/18 09:44; Admin Dose 60 MG; Start 07/22/18 at 09:00 Zinc Sulfate (Zinc Sulfate) 220 mg DAILY PO Last administered on 08/01/18 09: 44; Admin Dose 220 MG; Start 07/22/18 at 09:00 Atorvastatin Calcium (Lipitor) 40 mg HS PO Last administered on 07/31/18 20:52; Admin Dose 40 MG; Start 07/21/18 at 23:21 Insulin Aspart (Novolog Insulin Pen) NOVOLOG *MILD* ALGORITHM WITH MEALS BEDTIME SC Last administered on 07/29/18 17:51; Admin Dose 1 UNIT; Start 07/22/18 at 08:00 Miscellaneous Information 1 ea NOTE XX ; Start 07/22/18 at 04:30 Glucose (Glutose) 15 gm Q15M PRN PO DECREASED GLUCOSE; Start 07/22/18 at 04:30 Glucose (Glutose) 22.5 gm Q15M PRN PO DECREASED GLUCOSE; Start 07/22/18 at 04:30 Dextrose (D50w Syringe) 25 ml Q15M PRN IV DECREASED GLUCOSE; Start 07/22/18 at 04:30 Dextrose (D50w Syringe) 50 ml Q15M PRN IV DECREASED GLUCOSE; Start 07/22/18 at 04:30 Glucagon (Glucagen) 1 mg Q15M PRN IM DECREASED GLUCOSE; Start 07/22/18 at 04:30 Glucose (Glutose) 15 gm Q15M PRN BUCCAL DECREASED GLUCOSE; Start 07/22/18 at 04:30 Gentamicin Sulfate (Gentamicin 0.1% Oint) 1 applic HS TOP Last administered on 07/29/18 23:15; Admin Dose 1 APPLIC; Start 07/22/18 at 21:00 Multi-Ingredient Ointment (Eucerin Cream) 1 applic BID TOP Last administered on 08/01/18 09:45; Admin Dose 1 APPLIC; Start 07/22/18 at 22:00 Insulin Glargine (Lantus) 9 units DAILY@2000 SC Last administered on 07/31/18 20:58; Admin Dose 9 UNITS; Start 07/25/18 at 20:00 Cefepime HCl 50 ml @ 100 mls/hr Q12 IVPB Last administered on 08/01/18 11:35; Admin Dose 100 MLS/HR; Start 07/25/18 at 18:00 Tigecycline 50 mg/ Sodium Chloride 100 ml @ 200 mls/hr Q12H IVPB Last administered on 08/01/18 09:44; Admin Dose 200 MLS/HR; Start 07/25/18 at 20:00 Sodium Biphosphate/ Sodium Phosphate (Fleet Enema) 133 ml DAILY PRN OR CONSTIPATION Last administered on 07/30/18 13:55; Admin Dose 133 ML; Start 07/26/18 at 13:00 BRENNON HASSAN MD August 01, 2018 12:13
[2018-08-01 12:54] VITALS: BP 130/74; PULSE 75; RESP 18
--- NOTE | 2018-08-01 16:07 | CONS ---
Assessment/Plan Assessment/Plan Hospital Course (Demo Recall) ID PROGRESS NOTE CURRENT ABX: DAY # Tygacil, Cefepime 24H INTERVAL SUMMARY * Clinically status quo -- no fevers, VSS, NAD, resting and appears comfortable, no complaints offered * Wound vac in place -- s/p I&D 07/30/18 MICRO * 07/30/18 TISSUE (BIOPSY) CULTURE Preliminary Organism 1 GRAM NEGATIVE EMILI QUANTITY 2+ * 07/21/18 BCX (-) * 07/22/18: LEFT FOOT WOUND CULTURE Final Organism 1 ACINETOBACTER BAUMANNII QUANTITY 3+ Organism 2 CORYNEBACTERIUM SPECIES QUANTITY 3+ Organism 3 ENTEROCOCCUS SPECIES QUANTITY ISOLATED FROM BROTH ONLY * 07/22/18: RIGHT FOOT WOUND CULTURE Final Organism 1 ACINETOBACTER BAUMANNII QUANTITY 3+ Organism 2 CORYNEBACTERIUM SPECIES QUANTITY 3+ Organism 3 ENTEROCOCCUS SPECIES QUANTITY ISOLATED FROM BROTH ONLY Organism 4 ESCHERICHIA COLI QUANTITY ISOLATED FROM BROTH ONLY PHYSICAL EXAMINATION: GENERAL: VSS, NAD HEENT: AT, NC, anicteric, NECK: Supple, CHEST:Equal chest rise bilaterally, without dyspnea on observation HEART: Pulse RRR ABDOMEN: EXTREMITIES: Warm, dry ==> BLEXT DSG c/d/i SKIN: No rash, no diaphoresis ID ASSESSMENT 48 yo F admit with: 1. Bilateral lower extremities gangrene/Osteomyelitis 2. Chronic kidney disease, history of hemodialysis 3. Diabetes 4. RUE PICC (-)MRSA Nares ABX ALLERGIES: KNDA INVASIVES: PIV CURRENT ABX: DAY # Tygacil + Cefepime ID RECOMMENDATIONS/PLAN: 1. Continue current ABX 2. f/u on Tissue Bx GNR pending . Consultation Date/Type/Reason Admit Date/Time July 21, 2018 at 20:31 Initial Consult Date Date/Time of Note DATE: 08/01/18 TIME: 16:05 Exam/Review of Systems Exam Vitals Vital Signs Date Temp Pulse Resp B/P (MAP) Pulse Ox O2 O2 Flow FiO2 Time Delivery Rate 08/01/18 97.6 75 18 130/74 95 12:54 (92) 07/31/18 Room Air 01:02 Intake and Output 07/31/18 07/31/18 08/01/18 1515:00 23:00 07:00 IntakeIntake Total 1310 ml 1230 ml OutputOutput Total 30 ml BalanceBalance 1310 ml 1230 ml -30 ml Results Result Diagram: 07/30/18 0615 Results 24hrs Laboratory Tests Test 07/31/18 17:35 07/31/18 20:51 08/01/18 08:02 08/01/18 12:43 Bedside Glucose 137 174 104 136 Medications Medication Current Medications IV Flush (NS 3 ml) 3 ml PER PROTOCOL IV ; Start 07/21/18 at 20:30 Ondansetron HCl (Zofran Inj) 4 mg Q6H PRN IV NAUSEA/VOMITING; Start 07/21/18 at 20:30 Acetaminophen (Tylenol Tab) 650 mg Q6H PRN PO .PAIN 1-3 OR TEMP Last administered on 08/01/18 08:42; Admin Dose 650 MG; Start 07/21/18 at 20:30 Morphine Sulfate (morphine) 2 mg Q4H PRN IV .SEVERE PAIN 7-10; Start 07/21/18 at 20:30 Docusate Sodium (Colace) 100 mg Q12H PRN PO .CONSTIPATION Last administered on 07/25/18 21:13; Admin Dose 100 MG; Start 07/21/18 at 20:30 Bisacodyl (Dulcolax) 5 mg DAILY PRN PO .CONSTIPATION Last administered on 07/24/18 16:17; Admin Dose 5 MG; Start 07/21/18 at 20:30 Carvedilol (Coreg) 25 mg BID PO Last administered on 08/01/18 09:44; Admin Dose 25 MG; Start 07/21/18 at 23:00 Nifedipine (Procardia Xl) 60 mg DAILY PO Last administered on 08/01/18 09:44; Admin Dose 60 MG; Start 07/22/18 at 09:00 Zinc Sulfate (Zinc Sulfate) 220 mg DAILY PO Last administered on 08/01/18 09:44; Admin Dose 220 MG; Start 07/22/18 at 09:00 Atorvastatin Calcium (Lipitor) 40 mg HS PO Last administered on 07/31/18 20:52; Admin Dose 40 MG; Start 07/21/18 at 23:21 Insulin Aspart (Novolog Insulin Pen) NOVOLOG *MILD* ALGORITHM WITH MEALS BEDTIME SC Last administered on 07/29/18 17:51; Admin Dose 1 UNIT; Start 07/22/18 at 08:00 Miscellaneous Information 1 ea NOTE XX ; Start 07/22/18 at 04:30 Glucose (Glutose) 15 gm Q15M PRN PO DECREASED GLUCOSE; Start 07/22/18 at 04:30 Glucose (Glutose) 22.5 gm Q15M PRN PO DECREASED GLUCOSE; Start 07/22/18 at 04:30 Dextrose (D50w Syringe) 25 ml Q15M PRN IV DECREASED GLUCOSE; Start 07/22/18 at 04:30 Dextrose (D50w Syringe) 50 ml Q15M PRN IV DECREASED GLUCOSE; Start 07/22/18 at 04:30 Glucagon (Glucagen) 1 mg Q15M PRN IM DECREASED GLUCOSE; Start 07/22/18 at 04:30 Glucose (Glutose) 15 gm Q15M PRN BUCCAL DECREASED GLUCOSE; Start 07/22/18 at 04:30 Gentamicin Sulfate (Gentamicin 0.1% Oint) 1 applic HS TOP Last administered on 07/29/18at 23:15; Admin Dose 1 APPLIC; Start 07/22/18 at 21:00 Multi-Ingredient Ointment (Eucerin Cream) 1 applic BID TOP Last administered on 08/01/18 09:45; Admin Dose 1 APPLIC; Start 07/22/18 at 22:00 Insulin Glargine (Lantus) 9 units DAILY@2000 SC Last administered on 07/31/18 20:58; Admin Dose 9 UNITS; Start 07/25/18 at 20:00 Cefepime HCl 50 ml @ 100 mls/hr Q12 IVPB Last administered on 08/01/18 11:35; Admin Dose 100 MLS/HR; Start 07/25/18 at 18:00 Tigecycline 50 mg/ Sodium Chloride 100 ml @ 200 mls/hr Q12H IVPB Last administered on 08/01/18 09:44; Admin Dose 200 MLS/HR; Start 07/25/18 at 20:00 Sodium Biphosphate/ Sodium Phosphate (Fleet Enema) 133 ml DAILY PRN [place] CONSTIPATION Last administered on 07/30/18at 13:55; Admin Dose 133 ML; Start 07/26/18 at 13:00 DONALD FITZGERALD NP August 01, 2018 16:07
[2018-08-01 20:00] VITALS: BP 133/67; PULSE 80; RESP 18
[2018-08-01 20:49] VITALS: BP 122/66; PULSE 77; RESP 18
[2018-08-01] MEDS: ATORVASTATIN 40 MG TAB PO SCH (20:50)
[2018-08-01] MEDS: INSULIN GLARGINE [LANTus] (100 UNITS/ML) SYG SC SCH (20:54)
[2018-08-01] MEDS: GENTAMICIN 0.1% 15 GM OINT TOP SCH (20:56)
[2018-08-02 02:00] VITALS: BP 106/61; PULSE 76; RESP 18
[2018-08-02] MEDS: ACETAMINOPHEN 325 MG TAB PO PRN ×2 (05:27→11:30)
[2018-08-02 08:04] VITALS: BP 116/68; PULSE 71; RESP 18
[2018-08-02] MEDS: TIGECYCLINE 50 MG in SOD CHLORIDE 0.9% 100 ML IVPB SCH ×2 (08:35→23:40)
[2018-08-02] MEDS: ZINC SULFATE 220 MG CAP PO SCH (08:36)
[2018-08-02] MEDS: NIFEdipine (XL) 60 MG TAB PO SCH (08:36)
[2018-08-02] MEDS: INSULIN ASPART [NOVOLOG] 3 ML PEN SC SCH ×4 (08:44→22:00)
[2018-08-02] MEDS: EUCERIN 113 GM CR TOP SCH ×2 (08:46→22:03)
[2018-08-02] MEDS: CEFEPIME 2GM/50 ML IVPB SCH (09:41)
--- NOTE | 2018-08-02 14:42 | CONS ---
Assessment/Plan Assessment/Plan Hospital Course (Demo Recall) Alert feels good looks comfortable, no fevers no pain at the moment Antimicrobials: Tygacil, cefepime Microbiology: Wound culture grew multidrug-resistant Acinetobacter, enterococcus, E. coli Physical examination: Well-developed well-nourished middle-aged woman who is alert in no distress. Head atraumatic normocephalic sclera nonicteric. Neck is supple. Chest rise symmetrical, breath sounds clear. Heart: S1-S2. Abdomen soft bowel sounds present. Extremities with bilateral lower extremities dressing clean dry and intact Assessment: 1. Bilateral lower extremities gangrene/Osteomyelitis, status post left transmetatarsal amputation/right fifth and fourth digits amputation and third digit debridement 2. Chronic kidney disease, history of hemodialysis 3. Diabetes 4. RUE PICC Plan: Remains stable,, pending bone culture and pathology, per discussion with podiatry patient will need to be on long-term IV antibiotics for osteomyelitis as infected bone was not completely removed Dw Dr Rice Consultation Date/Type/Reason Admit Date/Time July 21, 2018 at 20:31 Initial Consult Date Type of Consult id Date/Time of Note DATE: 08/02/18 TIME: 14:40 Exam/Review of Systems Exam Vitals Vital Signs Date Temp Pulse Resp B/P (MAP) Pulse Ox O2 O2 Flow FiO2 Time Delivery Rate 08/02/18 97.6 71 18 116/68 100 Room Air 08:04 (84) Intake and Output 08/01/18 08/01/18 08/02/18 1515:00 23:00 07:00 IntakeIntake Total 990 ml 1030 ml BalanceBalance 990 ml 1030 ml Results Result Diagram: 08/02/18 0640 08/02/18 0448 Results 24hrs Laboratory Tests Test 08/01/18 17:09 08/01/18 20:46 08/02/18 01:26 08/02/18 04:48 Bedside Glucose 166 209 127 Sodium Level 141 Potassium Level 4.3 Chloride Level 112 H Carbon Dioxide Level 21 Anion Gap 8 Blood Urea Nitrogen 55 H Creatinine 1.21 H Est Glomerular 48 L Filtrat Rate mL/min Glucose Level 196 Calcium Level 8.5 Phosphorus Level 4.7 Magnesium Level 1.8 Test 08/02/18 06:40 08/02/18 08:15 08/02/18 12:54 White Blood Count 8.6 Red Blood Count 3.19 L Hemoglobin 8.7 L Hematocrit 27.5 L Mean Corpuscular 86.2 Volume Mean Corpuscular 27.3 L Hemoglobin Mean Corpuscular 31.6 L Hemoglobin Concent Red Cell 14.7 H Distribution Width Platelet Count 277 Mean Platelet Volume 11.2 H Immature 0.700 H Granulocytes % Neutrophils % 57.6 Lymphocytes % 22.8 Monocytes % 9.5 Eosinophils % 8.4 H Basophils % 1.0 Nucleated Red Blood 0.0 Cells % Immature 0.060 H Granulocytes # Neutrophils # 5.0 Lymphocytes # 2.0 Monocytes # 0.8 Eosinophils # 0.7 H Basophils # 0.1 Nucleated Red Blood 0.0 Cells # Bedside Glucose 153 132 Medications Medication Current Medications IV Flush (NS 3 ml) 3 ml PER PROTOCOL IV ; Start 07/21/18 at 20:30 Ondansetron HCl (Zofran Inj) 4 mg Q6H PRN IV NAUSEA/VOMITING; Start 07/21/18 at 20:30 Acetaminophen (Tylenol Tab) 650 mg Q6H PRN PO .PAIN 1-3 OR TEMP Last a dministered on 08/02/18 11:30; Admin Dose 650 MG; Start 07/21/18 at 20:30 Morphine Sulfate (morphine) 2 mg Q4H PRN IV .SEVERE PAIN 7-10; Start 07/21/18 at 20:30 Docusate Sodium (Colace) 100 mg Q12H PRN PO .CONSTIPATION Last administered on 07/25/18 21:13; Admin Dose 100 MG; Start 07/21/18 at 20:30 Bisacodyl (Dulcolax) 5 mg DAILY PRN PO .CONSTIPATION Last administered on 07/24/18 16:17; Admin Dose 5 MG; Start 07/21/18 at 20:30 Carvedilol (Coreg) 25 mg BID PO Last administered on 08/02/18 08:36; Admin Dose 25 MG; Start 07/21/18 at 23:00 Nifedipine (Procardia Xl) 60 mg DAILY PO Last administered on 08/02/18 08:36; Admin Dose 60 MG; Start 07/22/18 at 09:00 Zinc Sulfate (Zinc Sulfate) 220 mg DAILY PO Last administered on 08/02/18 08:36; Admin Dose 220 MG; Start 07/22/18 at 09:00 Atorvastatin Calcium (Lipitor) 40 mg HS PO Last administered on 08/01/18 20:50; Admin Dose 40 MG; Start 07/21/18 at 23:21 Insulin Aspart (Novolog Insulin Pen) NOVOLOG *MILD* ALGORITHM WITH MEALS BEDTIME SC Last administered on 08/02/18 08:44; Admin Dose 1 UNIT; Start 07/22/18 at 08:00 Miscellaneous Information 1 ea NOTE XX ; Start 07/22/18 at 04:30 Glucose (Glutose) 15 gm Q15M PRN PO DECREASED GLUCOSE; Start 07/22/18 at 04:30 Glucose (Glutose) 22.5 gm Q15M PRN PO DECREASED GLUCOSE; Start 07/22/18 at 04:30 Dextrose (D50w Syringe) 25 ml Q15M PRN IV DECREASED GLUCOSE; Start 07/22/18 at 04:30 Dextrose (D50w Syringe) 50 ml Q15M PRN IV DECREASED GLUCOSE; Start 07/22/18 at 04:30 Glucagon (Glucagen) 1 mg Q15M PRN IM DECREASED GLUCOSE; Start 07/22/18 at 04:30 Glucose (Glutose) 15 gm Q15M PRN BUCCAL DECREASED GLUCOSE; Start 07/22/18 at 04:30 Gentamicin Sulfate (Gentamicin 0.1% Oint) 1 applic HS TOP Last administered on 07/29/18 23:15; Admin Dose 1 APPLIC; Start 07/22/18 at 21:00 Multi-Ingredient Ointment (Eucerin Cream) 1 applic BID TOP Last administered on 08/02/18 08:46; Admin Dose 1 APPLIC; Start 07/22/18 at 22:00 Insulin Glargine (Lantus) 9 units DAILY@2000 SC Last administered on 08/01/18 20:54; Admin Dose 9 UNITS; Start 07/25/18 at 20:00 Cefepime HCl 50 ml @ 100 mls/hr Q12 IVPB Last administered on 08/02/18 09:41; Admin Dose 100 MLS/HR; Start 07/25/18 at 18:00 Tigecycline 50 mg/ Sodium Chloride 100 ml @ 200 mls/hr Q12H IVPB Last administered on 08/02/18 08:35; Admin Dose 200 MLS/HR; Start 07/25/18 at 20:00 Sodium Biphosphate/ Sodium Phosphate (Fleet Enema) 133 ml DAILY PRN [place] CONS TIPATION Last administered on 07/30/18at 13:55; Admin Dose 133 ML; Start 07/26/18 at 13:00 SEBASTIAN BARRETO NP August 02, 2018 14:42
[2018-08-02 14:49] VITALS: BP 116/70; PULSE 69; RESP 16
--- NOTE | 2018-08-02 18:03 | PN ---
Date/Time of Note Date/Time of Note DATE: 08/02/18 TIME: 18:03 Assessment/Plan VTE Prophylaxis Risk score (from Nsg)>0 risk: 3 SCD applied (from Nsg): Yes Pharmacological prophylaxis: heparin Lines/Catheters IV Catheter Type (from Nrsg): PICC Line Central line still needed: Yes Urinary Cath still in place: No Assessment/Plan Hospital Course Well appearing in NAD AOx3 RRR CTAB Gangrene of index finger and toes A/P: 48 yo female with h/o critical illness for which received vasopressors and developed digital ischemia who recovered but developed gangrene of toes and finger who was referred to hospital for evaluation of leukocytosis. Found to have OM of feet - Abx per ID - surgical management per podiatry DMII: - sliding scale insulin hypertension: - continue nifedipine, coreg Result Diagram: 08/02/18 0640 08/02/18 0448 Results 24hrs Laboratory Tests Test 08/01/18 20:46 08/02/18 01:26 08/02/18 04:48 08/02/18 06:40 Bedside Glucose 209 127 Sodium Level 141 Potassium Level 4.3 Chloride Level 112 H Carbon Dioxide Level 21 Anion Gap 8 Blood Urea Nitrogen 55 H Creatinine 1.21 H Est Glomerular 48 L Filtrat Rate mL/min Glucose Level 196 Calcium Level 8.5 Phosphorus Level 4.7 Magnesium Level 1.8 White Blood Count 8.6 Red Blood Count 3.19 L Hemoglobin 8.7 L Hematocrit 27.5 L Mean Corpuscular 86.2 Volume Mean Corpuscular 27.3 L Hemoglobin Mean Corpuscular 31.6 L Hemoglobin Concent Red Cell 14.7 H Distribution Width Platelet Count 277 Mean Platelet Volume 11.2 H Immature 0.700 H Granulocytes % Neutrophils % 57.6 Lymphocytes % 22.8 Monocytes % 9.5 Eosinophils % 8.4 H Basophils % 1.0 Nucleated Red Blood 0.0 Cells % Immature 0.060 H Granulocytes # Neutrophils # 5.0 Lymphocytes # 2.0 Monocytes # 0.8 Eosinophils # 0.7 H Basophils # 0.1 Nucleated Red Blood 0.0 Cells # Test 08/02/18 08:15 08/02/18 12:54 Bedside Glucose 153 132 Exam/Review of Systems Exam Vitals Vital Signs Date Temp Pulse Resp B/P (MAP) Pulse Ox O2 O2 Flow FiO2 Time Delivery Rate 08/02/18 98.0 69 16 116/70 100 Room Air 14:49 (85) Intake and Output 08/01/18 08/01/18 08/02/18 1515:00 23:00 07:00 IntakeIntake Total 990 ml 1030 ml BalanceBalance 990 ml 1030 ml Results Results 24hrs Laboratory Tests Test 08/01/18 20:46 08/02/18 01:26 08/02/18 04:48 08/02/18 06:40 Bedside Glucose 209 127 Sodium Level 141 Potassium Level 4.3 Chloride Level 112 H Carbon Dioxide Level 21 Anion Gap 8 Blood Urea Nitrogen 55 H Creatinine 1.21 H Est Glomerular 48 L Filtrat Rate mL/min Glucose Level 196 Calcium Level 8.5 Phosphorus Level 4.7 Magnesium Level 1.8 White Blood Count 8.6 Red Blood Count 3.19 L Hemoglobin 8.7 L Hematocrit 27.5 L Mean Corpuscular 86.2 Volume Mean Corpuscular 27.3 L Hemoglobin Mean Corpuscular 31.6 L Hemoglobin Concent Red Cell 14.7 H Distribution Width Platelet Count 277 Mean Platelet Volume 11.2 H Immature 0.700 H Granulocytes % Neutrophils % 57.6 Lymphocytes % 22.8 Monocytes % 9.5 Eosinophils % 8.4 H Basophils % 1.0 Nucleated Red Blood 0.0 Cells % Immature 0.060 H Granulocytes # Neutrophils # 5.0 Lymphocytes # 2.0 Monocytes # 0.8 Eosinophils # 0.7 H Basophils # 0.1 Nucleated Red Blood 0.0 Cells # Test 08/02/18 08:15 08/02/18 12:54 Bedside Glucose 153 132 Medications Medication Current Medications IV Flush (NS 3 ml) 3 ml PER PROTOCOL IV ; Start 07/21/18 at 20:30 Ondansetron HCl (Zofran Inj) 4 mg Q6H PRN IV NAUSEA/VOMITING; Start 07/21/18 at 20:30 Acetaminophen (Tylenol Tab) 650 mg Q6H PRN PO .PAIN 1-3 OR TEMP Last administered on 08/02/18at 11:30; Admin Dose 650 MG; Start 07/21/18 at 20:30 Morphine Sulfate (morphine) 2 mg Q4H PRN IV .SEVERE PAIN 7-10; Start 07/21/18 at 20:30 Docusate Sodium (Colace) 100 mg Q12H PRN PO .CONSTIPATION Last administered on 07/25/18 21:13; Admin Dose 100 MG; Start 07/21/18 at 20:30 Bisacodyl (Dulcolax) 5 mg DAILY PRN PO .CONSTIPATION Last administered on 07/24/18 16:17; Admin Dose 5 MG; Start 07/21/18 at 20:30 Carvedilol (Coreg) 25 mg BID PO Last administered on 08/02/18 08:36; Admin Dose 25 MG; Start 07/21/18 at 23:00 Nifedipine (Procardia Xl) 60 mg DAILY PO Last administered on 08/02/18 08:36; Admin Dose 60 MG; Start 07/22/18 at 09:00 Zinc Sulfate (Zinc Sulfate) 220 mg DAILY PO Last administered on 08/02/18 08:36; Admin Dose 220 MG; Start 07/22/18 at 09:00 Atorvastatin Calcium (Lipitor) 40 mg HS PO Last administered on 08/01/18 20:50; Admin Dose 40 MG; Start 07/21/18 at 23:21 Insulin Aspart (Novolog Insulin Pen) NOVOLOG *MILD* ALGORITHM WITH MEALS BEDTIME SC Last administered on 08/02/18 08:44; Admin Dose 1 UNIT; Start 07/22/18 at 08:00 Miscellaneous Information 1 ea NOTE XX ; Start 07/22/18 at 04:30 Glucose (Glutose) 15 gm Q15M PRN PO DECREASED GLUCOSE; Start 07/22/18 at 04:30 Glucose (Glutose) 22.5 gm Q15M PRN PO DECREASED GLUCOSE; Start 07/22/18 at 04:30 Dextrose (D50w Syringe) 25 ml Q15M PRN IV DECREASED GLUCOSE; Start 07/22/18 at 04:30 Dextrose (D50w Syringe) 50 ml Q15M PRN IV DECREASED GLUCOSE; Start 07/22/18 at 04:30 Glucagon (Glucagen) 1 mg Q15M PRN IM DECREASED GLUCOSE; Start 07/22/18 at 04:30 Glucose (Glutose) 15 gm Q15M PRN BUCCAL DECREASED GLUCOSE; Start 07/22/18 at 04:30 Gentamicin Sulfate (Gentamicin 0.1% Oint) 1 applic HS TOP Last administered on 07/29/18 23:15; Admin Dose 1 APPLIC; Start 07/22/18 at 21:00 Multi-Ingredient Ointment (Eucerin Cream) 1 applic BID TOP Last administered on 08/02/18 08:46; Admin Dose 1 APPLIC; Start 07/22/18 at 22:00 Insulin Glargine (Lantus) 9 units DAILY@2000 SC Last administered on 08/01/18 20:54; Admin Dose 9 UNITS; Start 07/25/18 at 20:00 Cefepime HCl 50 ml @ 100 mls/hr Q12 IVPB Last administered on 08/02/18 09:41; Admin Dose 100 MLS/HR; Start 07/25/18 at 18:00 Tigecycline 50 mg/ Sodium Chloride 100 ml @ 200 mls/hr Q12H IVPB Last adm inistered on 08/02/18 08:35; Admin Dose 200 MLS/HR; Start 07/25/18 at 20:00 Sodium Biphosphate/ Sodium Phosphate (Fleet Enema) 133 ml DAILY PRN [place] CONSTIPATION Last administered on 07/30/18 13:55; Admin Dose 133 ML; Start 07/26/18 at 13:00 BRET PARIKH MD August 02, 2018 18:03
--- NOTE | 2018-08-02 18:19 | PN ---
Date/Time of Note Date/Time of Note DATE: 08/02/18 TIME: 18:18 Assessment/Plan Lines/Catheters IV Catheter Type (from [facility]): PICC Line [place] in Place (from [facility]): No Assessment/Plan Chief Complaint/Hosp Course -Bilateral lower extremity atherosclerosis with bilateral foot gangrene: It seems that the patient had developed significant gangrene from her initial pr esentation back in fall of 2017. Since then, the patient has undergone multiple interventions and surgical debridements with our podiatry colleagues in order to provide adequate limb salvage for the patient. Given the extent involvement of tissue loss and exposure of muscle, tendon, bone and wound defect, the only option that could be provided to our patient is heroic measures with skin substitute grafts that can potentially incorporate further granulation tissue in order to allow adequate wound healing. The patient does have palpable pedal pulses, so suggestion of perfusion to the foot should be adequate to allow such intervention. I have thoroughly explained to the and to the that there is no one remedy that is superior to the other, provided the family with extensive i nformation for limb salvage interventions that are done, and all the treatments that she has received up to this point have been adequate and satisfactory. I have also explained to the patient that the intervention that I would provide would not be optimal to any intervention that she has already received. However, it is another avenue that they can partake or can proceed with should they choose. I will discuss the plan with our multidisciplinary team should the patient and want to go that route. The patient does have a high risk of not being able to heal the significant wound defects and end up with major amputation such as below-knee amputations bilaterally. After reviewing all the information with the and being able to repeat all the information back to me, they have been adamant that they want everything done to salvage the limb including partaking in heroic measures.. Interventions involved will be numerous and with serial debridements. The family has chosen to proceed with intervention with our podiatry colleagues. Will follow as needed. Optimize vascular status (BP meds, diet, nutrition, exercise, sugar control, antiplatelets). Discuss findings, plan and management with the patient and our multidisciplinary team. Thank you for allowing us to partake in the care of your patient. Please call with any questions. Subjective 24 Hr Interval Summary Constitutional: no complaints Exam/Review of Systems Vital Signs Vitals Vital Signs Date Temp Pulse Resp B/P (MAP) Pulse Ox O2 O2 Flow FiO2 Time Delivery Rate 08/02/18 98.0 69 16 116/70 100 Room Air 14:49 (85) Intake and Output 08/01/18 08/01/18 08/02/18 1515:00 23:00 07:00 IntakeIntake Total 990 ml 1030 ml BalanceBalance 990 ml 1030 ml Exam Free Text/Dictation BLE dressing intact and dry Results Result Diagram: 08/02/18 0640 08/02/18 0448 SREEDHAR VILLEGAS MD August 02, 2018 18:19
[2018-08-02 20:11] VITALS: BP 134/72; PULSE 88; RESP 18
[2018-08-02] MEDS ORDERED: ALTEPLASE (CATHFLO) 2 MG INJ CATHETER PRN (21:30)
[2018-08-02] MEDS: ATORVASTATIN 40 MG TAB PO SCH (21:59)
[2018-08-02] MEDS: GENTAMICIN 0.1% 15 GM OINT TOP SCH (22:00)
[2018-08-02] MEDS: INSULIN GLARGINE [LANTus] (100 UNITS/ML) SYG SC SCH (22:02)
[2018-08-03] MEDS: CEFEPIME 2GM/50 ML IVPB SCH ×3 (00:17→23:05)
[2018-08-03 01:08] VITALS: BP 130/74; PULSE 87; RESP 18
[2018-08-03 07:55] VITALS: BP 109/65; PULSE 84; RESP 20
--- NOTE | 2018-08-03 08:40 | PN ---
DATE: 08/03/2018 SUBJECTIVE: The patient is stable, no events overnight. OBJECTIVE: VITAL SIGNS: Blood pressure is 109/65, pulse 84, respirations 20, temperature 98.4. HEENT: Head is normocephalic. NECK: Supple. HEART: Regular rate. LUNGS: Show diminished breath sounds at the base. ABDOMEN: Soft, nontender to palpation without rebound or guarding. EXTREMITIES: Negative for clubbing, cyanosis, no edema. DERMATOLOGIC: No rashes. MUSCULOSKELETAL: No joint effusion. NEUROLOGIC: No change in exam. MEDICATIONS: Reviewed. LABORATORY DATA: Reviewed. ASSESSMENT AND PLAN: 1. Nonoliguric acute kidney injury on top of chronic kidney with previous baseline creatinine of 1.2 to 1.3 mg/dL. Etiology of acute kidney injury is secondary to hemodynamics. Renal function is stab ilizing. Continue current treatment plan, supportive care, renally dose all medications. 2. Anemia. Monitor hemoglobin and hematocrit levels. 3. Mineral bone disorder. Monitor calcium and phosphorus levels. 4. Bilateral gangrenous foot with osteomyelitis. The patient is status post amputation. Continue t o monitor. Follow up with podiatry. 5. Diabetes. Continue current insulin regimen. 6. Sepsis secondary to osteomyelitis. The patient is completing antibiotic course. 7. History of cerebrovascular accident. 8. Encephalopathy, improved. Dictated By: PARI TRAN DO NR/NTS Conf#: [id number] DID#: [id number] CC: BRET PARIKH MD; MELISSA MORRISSEY MD;*EndCC*
[2018-08-03] MEDS: INSULIN ASPART [NOVOLOG] 3 ML PEN SC SCH ×4 (08:58→23:10)
[2018-08-03] MEDS: EUCERIN 113 GM CR TOP SCH ×2 (09:00→21:19)
[2018-08-03] MEDS: TIGECYCLINE 50 MG in SOD CHLORIDE 0.9% 100 ML IVPB SCH ×2 (09:27→21:09)
[2018-08-03] MEDS: ZINC SULFATE 220 MG CAP PO SCH (09:29)
[2018-08-03] MEDS: NIFEdipine (XL) 60 MG TAB PO SCH (09:29)
[2018-08-03] MEDS: ACETAMINOPHEN 325 MG TAB PO PRN (09:40)
[2018-08-03 13:46] VITALS: BP 118/65; PULSE 80; RESP 20
--- NOTE | 2018-08-03 14:24 | CONS ---
Assessment/Plan Assessment/Plan Hospital Course (Demo Recall) All noted, no acute events, looks comfortable Antimicrobials: Tygacil, cefepime Microbiology: Wound culture grew multidrug-resistant Acinetobacter, enterococcus, E. coli, Bacteroides Physical examination: Well-developed well-nourished middle-aged woman who is alert in no distress. Head atraumatic normocephalic sclera nonicteric. Neck is supple. Chest rise symmetrical, breath sounds clear. Heart: S1-S2. Abdomen soft bowel sounds present. Extremities with bilateral lower extremities dressing clean dry and intact Assessment: 1. Bilateral lower extremities gangrene/Osteomyelitis, status post left transmetatarsal amputation/right fifth and fourth digits amputation and third digit debridement 2. Chronic kidney disease, history of hemodialysis 3. Diabetes 4. RUE PICC Plan: Stable, add Flagyl for anaerobic coverage, continue abx. Per discussion with podiatry patient will need to be on long-term IV antibiotics for osteomyelitis as infected bone was not completely removed Consultation Date/Type/Reason Admit Date/Time July 21, 2018 at 20:31 Initial Consult Date Type of Consult id Date/Time of Note DATE: 08/03/18 TIME: 14:22 Exam/Review of Systems Exam Vitals Vital Signs Date Temp Pulse Resp B/P (MAP) Pulse Ox O2 O2 Flow FiO2 Time Delivery Rate 08/03/18 98.2 80 20 118/65 100 13:46 (82) 08/02/18 Room Air 14:49 Intake and Output 08/02/18 08/02/18 08/03/18 1515:00 23:00 07:00 IntakeIntake Total 840 ml 870 ml 150 ml BalanceBalance 840 ml 870 ml 150 ml Results Result Diagram: 08/02/18 0640 08/02/18 0448 Results 24hrs Laboratory Tests Test 08/02/18 17:48 08/02/18 22:01 08/03/18 08:39 08/03/18 13:16 Bedside Glucose 303 H 140 156 134 Medications Medication Current Medications IV Flush (NS 3 ml) 3 ml PER PROTOCOL IV ; Start 07/21/18 at 20:30 Ondansetron HCl (Zofran Inj) 4 mg Q6H PRN IV NAUSEA/VOMITING; Start 07/21/18 at 20:30 Acetaminophen (Tylenol Tab) 650 mg Q6H PRN PO .PAIN 1-3 OR TEMP Last administered on 08/03/18 09:40; Admin Dose 650 MG; Start 07/21/18 at 20:30 Morphine Sulfate (morphine) 2 mg Q4H PRN IV .SEVERE PAIN 7-10; Start 07/21/18 at 20:30 Docusate Sodium (Colace) 100 mg Q12H PRN PO .CONSTIPATION Last administered on 07/25/18 21:13; Admin Dose 100 MG; Start 07/21/18 at 20:30 Bisacodyl (Dulcolax) 5 mg DAILY PRN PO .CONSTIPATION Last administered on 07/24/18 16:17; Admin Dose 5 MG; Start 07/21/18 at 20:30 Carvedilol (Coreg) 25 mg BID PO Last administered on 08/03/18 09:28; Admin Dose 25 MG; Start 07/21/18 at 23:00 Nifedipine (Procardia Xl) 60 mg DAILY PO Last administered on 08/03/18 09:29; Admin Dose 60 MG; Start 07/22/18 at 09:00 Zinc Sulfate (Zinc Sulfate) 220 mg DAILY PO Last administered on 08/03/18 09:29; Admin Dose 220 MG; Start 07/22/18 at 09:00 Atorvastatin Calcium (Lipitor) 40 mg HS PO Last administered on 08/02/18 21:59; Admin Dose 40 MG; Start 07/21/18 at 23:21 Insulin Aspart (Novolog Insulin Pen) NOVOLOG *MILD* ALGORITHM WITH MEALS BEDTIME SC Last administered on 08/03/18 08:58; Admin Dose 1 UNIT; Start 07/22/18 at 08:00 Miscellaneous Information 1 ea NOTE XX ; Start 07/22/18 at 04:30 Glucose (Glutose) 15 gm Q15M PRN PO DECREASED GLUCOSE; Start 07/22/18 at 04:30 Glucose (Glutose) 22.5 gm Q15M PRN PO DECREASED GLUCOSE; Start 07/22/18 at 04:30 Dextrose (D50w Syringe) 25 ml Q15M PRN IV DECREASED GLUCOSE; Start 07/22/18 at 04:30 Dextrose (D50w Syringe) 50 ml Q15M PRN IV DECREASED GLUCOSE; Start 07/22/18 at 04:30 Glucagon (Glucagen) 1 mg Q15M PRN IM DECREASED GLUCOSE; Start 07/22/18 at 04:30 Glucose (Glutose) 15 gm Q15M PRN BUCCAL DECREASED GLUCOSE; Start 07/22/18 at 04:30 Gentamicin Sulfate (Gentamicin 0.1% Oint) 1 applic HS TOP Last administered on 07/29/18 23:15; Admin Dose 1 APPLIC; Start 07/22/18 at 21:00 Multi-Ingredient Ointment (Eucerin Cream) 1 applic BID TOP Last administered on 08/02/18 22:03; Admin Dose 1 APPLIC; Start 07/22/18 at 22:00 Insulin Glargine (Lantus) 9 units DAILY@2000 SC Last administered on 08/02/18 22:02; Admin Dose 9 UNITS; Start 07/25/18 at 20:00 Cefepime HCl 50 ml @ 100 mls/hr Q12 IVPB Last administered on 08/03/18 09:29; Admin Dose 100 MLS/HR; Start 07/25/18 at 18:00 Tigecycline 50 mg/ Sodium Chloride 100 ml @ 200 mls/hr Q12H IVPB Last administered on 08/03/18 09:27; Admin Dose 200 MLS/HR; Start 07/25/18 at 20:00 Sodium Biphosphate/ Sodium Phosphate (Fleet Enema) 133 ml DAILY PRN [place] CONSTIPATION Last administered on 07/30/18 13:55; Admin Dose 133 ML; Start 07/26/18 at 13:00 Alteplase, Recombinant (Cathflo (Activase)) 2 mg MAY REPEAT X1 PRN CATHETER IF CATHETER REMAINS OCCULUDED Last administered on 08/02/18 22:47; Admin Dose 2 MG; Start 08/02/18 at 21:30 SEBASTIAN BARRETO NP August 03, 2018 14:24
[2018-08-03] MEDS: metroNIDAZOLE 500 MG TAB PO SCH ×2 (15:38→21:18)
--- NOTE | 2018-08-03 17:29 | PN ---
Date/Time of Note Date/Time of Note DATE: 08/03/18 TIME: 17:28 Assessment/Plan VTE Prophylaxis Risk score (from Nsg)>0 risk: 4 SCD applied (from Nsg): Yes Pharmacological prophylaxis: heparin Lines/Catheters IV Catheter Type (from Nrsg): PICC Line Central line still needed: Yes Urinary Cath still in place: No Assessment/Plan Hospital Course Well appearing in NAD AOx3 RRR CTAB Gangrene of index finger and toes A/P: 48 yo female with h/o critical illness for which received vasopressors and developed digital ischemia who recovered but developed gangrene of toes and finger who was referred to hospital for evaluation of leukocytosis. Found to have OM of feet - Abx per ID - perioperative management per podiatry, wound vac for 2 months needed DMII: - sliding scale insulin hypertension: - continue nifedipine, coreg Result Diagram: 08/02/18 0640 08/02/18 0448 Results 24hrs Laboratory Tests Test 08/02/18 17:48 08/02/18 22:01 08/03/18 08:39 08/03/18 13:16 Bedside Glucose 303 H 140 156 134 Subjective 24 Hr Interval Summary Free Text/Dictation Resting comfortably, no complaints Exam/Review of Systems Exam Vitals Vital Signs Date Temp Pulse Resp B/P (MAP) Pulse Ox O2 O2 Flow FiO2 Time Delivery Rate 08/03/18 98.2 80 20 118/65 100 13:46 (82) 08/02/18 Room Air 14:49 Intake and Output 08/02/18 08/02/18 08/03/18 1515:00 23:00 07:00 IntakeIntake Total 840 ml 870 ml 150 ml BalanceBalance 840 ml 870 ml 150 ml Results Results 24hrs Laboratory Tests Test 08/02/18 17:48 08/02/18 22:01 08/03/18 08:39 08/03/18 13:16 Bedside Glucose 303 H 140 156 134 Medications Medication Current Medications IV Flush (NS 3 ml) 3 ml PER PROTOCOL IV ; Start 07/21/18 at 20:30 Ondansetron HCl (Zofran Inj) 4 mg Q6H PRN IV NAUSEA/VOMITING; Start 07/21/18 at 20:30 Acetaminophen (Tylenol Tab) 650 mg Q6H PRN PO .PAIN 1-3 OR TEMP Last administered on 08/03/18 09:40; Admin Dose 650 MG; Start 07/21/18 at 20:30 Morphine Sulfate (morphine) 2 mg Q4H PRN IV .SEVERE PAIN 7-10; Start 07/21/18 at 20:30 Docusate Sodium (Colace) 100 mg Q12H PRN PO .CONSTIPATION Last administered on 07/25/18 21:13; Admin Dose 100 MG; Start 07/21/18 at 20:30 Bisacodyl (Dulcolax) 5 mg DAILY PRN PO .CONSTIPATION Last administered on 07/24/18 16:17; Admin Dose 5 MG; Start 07/21/18 at 20:30 Carvedilol (Coreg) 25 mg BID PO Last administered on 08/03/18 09:28; Admin Dose 25 MG; Start 07/21/18 at 23:00 Nifedipine (Procardia Xl) 60 mg DAILY PO Last administered on 08/03/18 09:29; Admin Dose 60 MG; Start 07/22/18 at 09:00 Zinc Sulfate (Zinc Sulfate) 220 mg DAILY PO Last administered on 08/03/18 09:29; Admin Dose 220 MG; Start 07/22/18 at 09:00 Atorvastatin Calcium (Lipitor) 40 mg HS PO Last administered on 08/02/18 21:59; Admin Dose 40 MG; Start 07/21/18 at 23:21 Insulin Aspart (Novolog Insulin Pen) NOVOLOG *MILD* ALGORITHM WITH MEALS BEDTIME SC Last administered on 08/03/18 08:58; Admin Dose 1 UNIT; Start 07/22/18 at 08:00 Miscellaneous Information 1 ea NOTE XX ; Start 07/22/18 at 04:30 Glucose (Glutose) 15 gm Q15M PRN PO DECREASED GLUCOSE; Start 07/22/18 at 04:30 Glucose (Glutose) 22.5 gm Q15M PRN PO DECREASED GLUCOSE; Start 07/22/18 at 04:30 Dextrose (D50w Syringe) 25 ml Q15M PRN IV DECREASED GLUCOSE; Start 07/22/18 at 04:30 Dextrose (D50w Syringe) 50 ml Q15M PRN IV DECREASED GLUCOSE; Start 07/22/18 at 04:30 Glucagon (Glucagen) 1 mg Q15M PRN IM DECREASED GLUCOSE; Start 07/22/18 at 04:30 Glucose (Glutose) 15 gm Q15M PRN BUCCAL DECREASED GLUCOSE; Start 07/22/18 at 04:30 Gentamicin Sulfate (Gentamicin 0.1% Oint) 1 applic HS TOP Last administered on 07/29/18 23:15; Admin Dose 1 APPLIC; Start 07/22/18 at 21:00 Multi-Ingredient Ointment (Eucerin Cream) 1 applic BID TOP Last administered on 08/02/18 22:03; Admin Dose 1 APPLIC; Start 07/22/18 at 22:00 Insulin Glargine (Lantus) 9 units DAILY@2000 SC Last administered on 08/02/18 22:02; Admin Dose 9 UNITS; Start 07/25/18 at 20:00 Cefepime HCl 50 ml @ 100 mls/hr Q12 IVPB Last administered on 08/03/18 09:29; Admin Dose 100 MLS/HR; Start 07/25/18 at 18:00 Tigecycline 50 mg/ Sodium Chloride 100 ml @ 200 mls/hr Q12H IVPB Last administered on 08/03/18 09:27; Admin Dose 200 MLS/HR; Start 07/25/18 at 20:00 Sodium Biphosphate/ Sodium Phosphate (Fleet Enema) 133 ml DAILY PRN [place] CONSTIPATION Last administered on 07/30/18 13:55; Admin Dose 133 ML; Start 07/26/18 at 13:00 Alteplase, Recombinant (Cathflo (Activase)) 2 mg MAY REPEAT X1 PRN CATHETER IF CATHETER REMAINS OCCULUDED Last administered on 08/02/18 22:47; Admin Dose 2 MG; Start 08/02/18 at 21:30 Metronidazole (Flagyl) 500 mg Q8 PO Last administered on 08/03/18 15:38; Admin Dose 500 MG; Start 08/03/18 at 14:30 BRET PARIKH MD August 03, 2018 17:29
[2018-08-03 20:08] VITALS: BP 119/63; PULSE 76; RESP 18
[2018-08-03] MEDS: GENTAMICIN 0.1% 15 GM OINT TOP SCH (21:00)
[2018-08-03] MEDS: ATORVASTATIN 40 MG TAB PO SCH (21:18)
[2018-08-03] MEDS: INSULIN GLARGINE [LANTus] (100 UNITS/ML) SYG SC SCH (23:09)
[2018-08-04 02:12] VITALS: BP 126/70; PULSE 81; RESP 18
[2018-08-04] MEDS: metroNIDAZOLE 500 MG TAB PO SCH ×3 (06:25→21:26)
[2018-08-04 07:38] VITALS: BP 124/69; PULSE 77; RESP 20
[2018-08-04] MEDS: INSULIN ASPART [NOVOLOG] 3 ML PEN SC SCH ×4 (08:00→21:00)
[2018-08-04] MEDS: ZINC SULFATE 220 MG CAP PO SCH (08:26)
[2018-08-04] MEDS: EUCERIN 113 GM CR TOP SCH ×2 (08:27→21:28)
[2018-08-04] MEDS: NIFEdipine (XL) 60 MG TAB PO SCH (08:27)
[2018-08-04] MEDS: TIGECYCLINE 50 MG in SOD CHLORIDE 0.9% 100 ML IVPB SCH ×2 (08:27→21:27)
--- NOTE | 2018-08-04 09:40 | PN ---
DATE: 08/04/2018 SUBJECTIVE: The patient is stable. No events overnight. OBJECTIVE: VITAL SIGNS: Blood pressure is 124/69, pulse 77, respirations 20, temperature 97.8. HEENT: Head is normocephalic. NECK: Supple. HEART: Regular rate. LUNGS: Show diminished breath sounds at the base. ABDOMEN: Soft, nontender to palpation without rebound or guarding. EXTREMITIES: Negative for clubbing, cyanosis, no edema. DERMATOLOGIC: No rashes. MUSCULOSKELETAL: The patient has dressing over right foot clean, dry, and intact. DERMATOLOGIC: No rashes. NEUROLOGIC: No focal deficits. MEDICATIONS: Reviewed. LABORATORY DATA: Reviewed. ASSESSMENT AND PLAN: 1. Nonoliguric acute kidney injury on top of chronic kidney disease with baseline creatinine of 1.2 to 1.3 mg/dL. Etiology of acute kidney injury is secondary to hemodynamics. Renal function stabiliz ed. Continue current treatment plan, supportive care, renally dose all medications. 2. Anemia. Monitor hemoglobin and phosphorus levels. 3. Mineral bone disorder. Monitor calcium and phosphorus levels. 4. Bilateral gangrenous foot with osteomyelitis. The patient is status post amputation. Continue t o monitor. Follow up with podiatry. 5. Diabetes. Continue current insulin regimen. 6. Sepsis secondary to osteomyelitis. The patient is completing antibiotic course. 7. History of cerebrovascular accident. 8. Encephalopathy, improved. Dictated By: PARI AMAYA/NTS Conf#: [id number] DID#: [id number] CC: MELISSA MORRISSEY MD; BRET PARIKH MD;*End*
[2018-08-04] MEDS: CEFEPIME 2GM/50 ML IVPB SCH ×2 (10:54→22:51)
[2018-08-04 13:46] VITALS: BP 134/67; PULSE 81; RESP 20
--- NOTE | 2018-08-04 14:00 | CONS ---
Assessment/Plan Assessment/Plan Hospital Course (Demo Recall) Alert, feels good, no fevers no nausea vomiting, patient does not remember when she had last bowel movement Antimicrobials: Tygacil, cefepime, Flagyl Microbiology: Wound culture grew multidrug-resistant Acinetobacter, enterococcus, E. coli, Bacteroides Physical examination: Well-developed well-nourished middle-aged woman who is alert in no distress. Head atraumatic normocephalic sclera nonicteric. Neck is supple. Chest rise symmetrical, breath sounds clear. Heart: S1-S2. Abdomen s oft bowel sounds present. Extremities with bilateral lower extremities dressing clean dry and intact Assessment: 1. Bilateral lower extremities gangrene/Osteomyelitis, status post left transmetatarsal amputation/right fifth and fourth digits amputation and third digit debridement 2. Chronic kidney disease, history of hemodialysis 3. Diabetes 4. RUE PICC Plan: Remains stable, continue on current abx for another 6 weeks, add stool softeners and consider to give laxatives, wound management per podiatry Consultation Date/Type/Reason Admit Date/Time July 21, 2018 at 20:31 Initial Consult Date Type of Consult id Date/Time of Note DATE: 08/04/18 TIME: 13:58 Exam/Review of Systems Exam Vitals Vital Signs Date Temp Pulse Resp B/P (MAP) Pulse Ox O2 O2 Flow FiO2 Time Delivery Rate 08/04/18 98.4 81 20 134/67 100 13:46 (89) 08/02/18 Room Air 14:49 Intake and Output 08/03/18 08/03/18 08/04/18 1414:59 22:59 06:59 IntakeIntake Total 2190 ml 580 ml 290 ml OutputOutput Total 10 ml 0 ml BalanceBalance 2190 ml 570 ml 290 ml Results Result Diagram: 08/02/18 0640 08/02/18 0448 Results 24hrs Laboratory Tests Test 08/03/18 17:54 08/03/18 23:03 08/04/18 02:53 08/04/18 07:45 Bedside Glucose 229 H 251 H 206 116 Test 08/04/18 12:15 Bedside Glucose 92 Medications Medication Current Medications IV Flush (NS 3 ml) 3 ml PER PROTOCOL IV ; Start 07/21/18 at 20:30 Ondansetron HCl (Zofran Inj) 4 mg Q6H PRN IV NAUSEA/VOMITING; Start 07/21/18 at 20:30 Acetaminophen (Tylenol Tab) 650 mg Q6H PRN PO .PAIN 1-3 OR TEMP Last administered on 08/03/18 09:40; Admin Dose 650 MG; Start 07/21/18 at 20:30 Morphine Sulfate (morphine) 2 mg Q4H PRN IV .SEVERE PAIN 7-10; Start 07/21/18 at 20:30 Docusate Sodium (Colace) 100 mg Q12H PRN PO .CONSTIPATION Last administered on 07/25/18 21:13; Admin Dose 100 MG; Start 07/21/18 at 20:30 Bisacodyl (Dulcolax) 5 mg DAILY PRN PO .CONSTIPATION Last administered on 07/24/18 16:17; Admin Dose 5 MG; Start 07/21/18 at 20:30 Carvedilol (Coreg) 25 mg BID PO Last administered on 08/04/18 08:26; Admin Dose 25 MG; Start 07/21/18 at 23:00 Nifedipine (Procardia Xl) 60 mg DAILY PO Last administered on 08/04/18 08:27; Admin Dose 60 MG; Start 07/22/18 at 09:00 Zinc Sulfate (Zinc Sulfate) 220 mg DAILY PO Last administered on 08/04/18 08: 26; Admin Dose 220 MG; Start 07/22/18 at 09:00 Atorvastatin Calcium (Lipitor) 40 mg HS PO Last administered on 08/03/18 21:18; Admin Dose 40 MG; Start 07/21/18 at 23:21 Insulin Aspart (Novolog Insulin Pen) NOVOLOG *MILD* ALGORITHM WITH MEALS BEDTIME SC Last administered on 08/03/18 23:10; Admin Dose 2 UNIT; Start 07/22/18 at 08:00 Miscellaneous Information 1 ea NOTE XX ; Start 07/22/18 at 04:30 Glucose (Glutose) 15 gm Q15M PRN PO DECREASED GLUCOSE; Start 07/22/18 at 04:30 Glucose (Glutose) 22.5 gm Q15M PRN PO DECREASED GLUCOSE; Start 07/22/18 at 04:30 Dextrose (D50w Syringe) 25 ml Q15M PRN IV DECREASED GLUCOSE; Start 07/22/18 at 04:30 Dextrose (D50w Syringe) 50 ml Q15M PRN IV DECREASED GLUCOSE; Start 07/22/18 at 04:30 Glucagon (Glucagen) 1 mg Q15M PRN IM DECREASED GLUCOSE; Start 07/22/18 at 04:30 Glucose (Glutose) 15 gm Q15M PRN BUCCAL DECREASED GLUCOSE; Start 07/22/18 at 04:30 Gentamicin Sulfate (Gentamicin 0.1% Oint) 1 applic HS TOP Last administered on 07/29/18 23:15; Admin Dose 1 APPLIC; Start 07/22/18 at 21:00 Multi-Ingredient Ointment (Eucerin Cream) 1 applic BID TOP Last administered on 08/04/18 08:27; Admin Dose 1 APPLIC; Start 07/22/18 at 22:00 Insulin Glargine (Lantus) 9 units DAILY@2000 SC Last administered on 08/03/18 23:09; Admin Dose 9 UNITS; Start 07/25/18 at 20:00 Cefepime HCl 50 ml @ 100 mls/hr Q12 IVPB Last administered on 08/04/18 10:54; Admin Dose 100 MLS/HR; Start 07/25/18 at 18:00 Tigecycline 50 mg/ Sodium Chloride 100 ml @ 200 mls/hr Q12H IVPB Last administered on 08/04/18 08:27; Admin Dose 200 MLS/HR; Start 07/25/18 at 20:00 Sodium Biphosphate/ Sodium Phosphate (Fleet Enema) 133 ml DAILY PRN [place] CONSTIPATION Last administered on 07/30/18 13:55; Admin Dose 133 ML; Start 07/26/18 at 13:00 Alteplase, Recombinant (Cathflo (Activase)) 2 mg MAY REPEAT X1 PRN CATHETER IF CATHETER REMAINS OCCULUDED Last administered on 08/02/18 22:47; Admin Dose 2 MG; Start 08/02/18 at 21:30 Metronidazole (Flagyl) 500 mg Q8 PO Last administered on 08/04/18 06:25; Admin Dose 500 MG; Start 08/03/18 at 14:30 SEBASTIAN BARRETO NP August 04, 2018 14:00
[2018-08-04] MEDS: ACETAMINOPHEN 325 MG TAB PO PRN (14:11)
--- NOTE | 2018-08-04 15:29 | PN ---
Date/Time of Note Date/Time of Note DATE: 08/04/18 TIME: 15:25 Assessment/Plan VTE Prophylaxis Risk score (from Nsg)>0 risk: 4 SCD applied (from Nsg): Yes Pharmacological prophylaxis: heparin Lines/Catheters IV Catheter Type (from Nrsg): PICC Line Central line still needed: Yes Urinary Cath still in place: No Assessment/Plan Hospital Course Well appearing in NAD AOx3 RRR CTAB Gangrene of index finger and toes A/P: 48 yo female with h/o critical illness for which received vasopressors and developed digital ischemia who recovered but developed gangrene of toes and finger who was referred to hospital for evaluation of leukocytosis. Found to have OM of feet - Abx per ID - perioperative management per podiatry, plan for reoperation on Thursday, wound vac for 2 months needed DMII: - sliding scale insulin hypertension: - continue nifedipine, coreg Result Diagram: 08/02/18 0640 08/02/18 0448 Results 24hrs Laboratory Tests Test 08/03/18 17:54 08/03/18 23:03 08/04/18 02:53 08/04/18 07:45 Bedside Glucose 229 H 251 H 206 116 Test 08/04/18 12:15 Bedside Glucose 92 Subjective 24 Hr Interval Summary Free Text/Dictation No change to clinical status Exam/Review of Systems Exam Vitals Vital Signs Date Temp Pulse Resp B/P (MAP) Pulse Ox O2 O2 Flow FiO2 Time Delivery Rate 08/04/18 98.4 81 20 134/67 100 13:46 (89) 08/02/18 Room Air 14:49 Intake and Output 08/03/18 08/03/18 08/04/18 1515:00 23:00 07:00 IntakeIntake Total 2190 ml 580 ml 290 ml OutputOutput Total 10 ml 0 ml BalanceBalance 2190 ml 570 ml 290 ml Results Results 24hrs Laboratory Tests Test 08/03/18 17:54 08/03/18 23:03 08/04/18 02:53 08/04/18 07:45 Bedside Glucose 229 H 251 H 206 116 Test 08/04/18 12:15 Bedside Glucose 92 Medications Medication Current Medications IV Flush (NS 3 ml) 3 ml PER PROTOCOL IV ; Start 07/21/18 at 20:30 Ondansetron HCl (Zofran Inj) 4 mg Q6H PRN IV NAUSEA/VOMITING; Start 07/21/18 at 20:30 Acetaminophen (Tylenol Tab) 650 mg Q6H PRN PO .PAIN 1-3 OR TEMP Last administered on 08/04/18 14:11; Admin Dose 650 MG; Start 07/21/18 at 20:30 Morphine Sulfate (morphine) 2 mg Q4H PRN IV .SEVERE PAIN 7-10; Start 07/21/18 at 20:30 Bisacodyl (Dulcolax) 5 mg DAILY PRN PO .CONSTIPATION Last administered on 07/24/18 16:17; Admin Dose 5 MG; Start 07/21/18 at 20:30 Carvedilol (Coreg) 25 mg BID PO Last administered on 08/04/18 08:26; Admin Dose 25 MG; Start 07/21/18 at 23:00 Nifedipine (Procardia Xl) 60 mg DAILY PO Last administered on 08/04/18 08:27; Admin Dose 60 MG; Start 07/22/18 at 09:00 Zinc Sulfate (Zinc Sulfate) 220 mg DAILY PO Last administered on 08/04/18 08:26; Admin Dose 220 MG; Start 07/22/18 at 09:00 Atorvastatin Calcium (Lipitor) 40 mg HS PO Last administered on 08/03/18 21:18; Admin Dose 40 MG; Start 07/21/18 at 23:21 Insulin Aspart (Novolog Insulin Pen) NOVOLOG *MILD* ALGORITHM WITH MEALS BE DTIME SC Last administered on 08/03/18 23:10; Admin Dose 2 UNIT; Start 07/22/18 at 08:00 Miscellaneous Information 1 ea NOTE XX ; Start 07/22/18 at 04:30 Glucose (Glutose) 15 gm Q15M PRN PO DECREASED GLUCOSE; Start 07/22/18 at 04:30 Glucose (Glutose) 22.5 gm Q15M PRN PO DECREASED GLUCOSE; Start 07/22/18 at 04:30 Dextrose (D50w Syringe) 25 ml Q15M PRN IV DECREASED GLUCOSE; Start 07/22/18 at 04:30 Dextrose (D50w Syringe) 50 ml Q15M PRN IV DECREASED GLUCOSE; Start 07/22/18 at 04:30 Glucagon (Glucagen) 1 mg Q15M PRN IM DECREASED GLUCOSE; Start 07/22/18 at 04:30 Glucose (Glutose) 15 gm Q15M PRN BUCCAL DECREASED GLUCOSE; Start 07/22/18 at 04:30 Gentamicin Sulfate (Gentamicin 0.1% Oint) 1 applic HS TOP Last administered on 07/29/18 23:15; Admin Dose 1 APPLIC; Start 07/22/18 at 21:00 Multi-Ingredient Ointment (Eucerin Cream) 1 applic BID TOP Last administered on 08/04/18 08:27; Admin Dose 1 APPLIC; Start 07/22/18 at 22:00 Insulin Glargine (Lantus) 9 units DAILY@2000 SC Last administered on 08/03/18 23:09; Admin Dose 9 UNITS; Start 07/25/18 at 20:00 Cefepime HCl 50 ml @ 100 mls/hr Q12 IVPB Last administered on 08/04/18 10:54; Admin Dose 100 MLS/HR; Start 07/25/18 at 18:00 Tigecycline 50 mg/ Sodium Chloride 100 ml @ 200 mls/hr Q12H IVPB Last administered on 08/04/18 08:27; Admin Dose 200 MLS/HR; Start 07/25/18 at 20:00 Sodium Biphosphate/ Sodium Phosphate (Fleet Enema) 133 ml DAILY PRN [place] CONSTIPATION Last administered on 07/30/18 13:55; Admin Dose 133 ML; Start 07/26/18 at 13:00 Alteplase, Recombinant (Cathflo (Activase)) 2 mg MAY REPEAT X1 PRN CATHETER IF CATHETER REMAINS OCCULUDED Last administered on 08/02/18 22:47; Admin Dose 2 MG; Start 08/02/18 at 21:30 Metronidazole (Flagyl) 500 mg Q8 PO Last administered on 08/04/18 14:08; Admin Dose 500 MG; Start 08/03/18 at 14:30 Docusate Sodium (Colace) 100 mg BID PO ; Start 08/04/18 at 21:00 BRET PARIKH MD August 04, 2018 15:29
[2018-08-04 20:00] VITALS: BP 111/61; PULSE 73; RESP 18
[2018-08-04] MEDS: GENTAMICIN 0.1% 15 GM OINT TOP SCH (21:00)
[2018-08-04] MEDS: DOCUSATE SODIUM 100 MG CAP PO SCH (21:26)
[2018-08-04] MEDS: ATORVASTATIN 40 MG TAB PO SCH (21:26)
[2018-08-04] MEDS: INSULIN GLARGINE [LANTus] (100 UNITS/ML) SYG SC SCH (21:40)
[2018-08-05 02:00] VITALS: BP 115/66; PULSE 67; RESP 18
[2018-08-05] MEDS: metroNIDAZOLE 500 MG TAB PO SCH ×3 (05:52→21:04)
[2018-08-05 07:34] VITALS: BP 131/74; PULSE 70; RESP 18
[2018-08-05] MEDS: TIGECYCLINE 50 MG in SOD CHLORIDE 0.9% 100 ML IVPB SCH ×2 (07:53→20:53)
[2018-08-05] MEDS: INSULIN ASPART [NOVOLOG] 3 ML PEN SC SCH ×4 (07:53→21:00)
[2018-08-05] MEDS: DOCUSATE SODIUM 100 MG CAP PO SCH ×2 (08:55→21:00)
[2018-08-05] MEDS: CEFEPIME 2GM/50 ML IVPB SCH ×2 (08:55→21:05)
[2018-08-05] MEDS: NIFEdipine (XL) 60 MG TAB PO SCH (08:56)
[2018-08-05] MEDS: ZINC SULFATE 220 MG CAP PO SCH (08:56)
[2018-08-05] MEDS: EUCERIN 113 GM CR TOP SCH ×2 (08:56→21:08)
--- NOTE | 2018-08-05 09:14 | PN ---
DATE: 08/05/2018 SUBJECTIVE: The patient is stable. No events overnight. OBJECTIVE: VITAL SIGNS: Blood pressure is 131/74, pulse 70, respirations 18, temperature 97.8. HEENT: Head is normocephalic. NECK: Supple. HEART: Regular rate. LUNGS: Show diminished breath sounds at the base. ABDOMEN: Soft, nontender to palpation without rebound or guarding. EXTREMITIES: Negative for clubbing, cyanosis, no edema. The patient has dressing and wound VAC on l ower extremity. DERMATOLOGIC: No rashes. MUSCULOSKELETAL: No joint effusion. NEUROLOGIC: No change in exam. MEDICATIONS: Reviewed. LABORATORY DATA: Reviewed. ASSESSMENT AND PLAN: 1. Nonoliguric acute kidney injury on top of chronic kidney disease with baseline creatinine of 1.0 to 1.3 mg/dL. Etiology of acute kidney injury is secondary to hemodynamics. Renal function stabiliz ed, currently at baseline. Continue current treatment plan, supportive care, and renally dose all me dications. 2. Anemia. Continue to monitor hemoglobin and hematocrit levels, no need for Epogen. 3. Mineral bone disorder. Monitor calcium and phosphorus levels. 4. Bilateral gangrenous foot with osteomyelitis. The patient is status post amputation with wound V AC. Plan is for reoperation, possibly on Thursday. Continue to monitor. Follow up with podiatry. Co ntinue antibiotic therapy. 5. Diabetes. Continue current insulin regimen. 6. Sepsis secondary to osteomyelitis. Continue current antibiotic regimen. 7. History of cerebrovascular accident. Dictated By: PARI TRAN DO NR/NTS Conf#: [id number] DID#: [id number] CC: MELISSA MORRISSEY MD; BRET PARIKH MD;*EndCC*
[2018-08-05] MEDS: NA PHOSPHATE/BIPHOS 133 ML ENEMA PR PRN (10:46)
--- NOTE | 2018-08-05 12:53 | CONS ---
Assessment/Plan Assessment/Plan Hospital Course (Demo Recall) Alert, feels good, no fevers Antimicrobials: Tygacil, cefepime, Flagyl Microbiology: Wound culture grew multidrug-resistant Acinetobacter, enterococcus, E. coli, Bacteroides Physical examination: Well-developed well-nourished middle-aged woman who is alert in no distress. Head atraumatic normocephalic sclera nonicteric. Neck is supple. Chest rise symmetrical, breath sounds clear. Heart: S1-S2. Abdomen soft bowel sounds present. Extremities with bilateral lower extremities dressi ng clean dry and intact Assessment: 1. Bilateral lower extremities gangrene/Osteomyelitis, status post left transmetatarsal amputation/right fifth and fourth digits amputation and third digit debridement 2. Chronic kidney disease, history of hemodialysis 3. Diabetes 4. RUE PICC Plan: Remains stable, continue on current abx for another 6 weeks, wound management per podiatry Consultation Date/Type/Reason Admit Date/Time July 21, 2018 at 20:31 Initial Consult Date Type of Consult id Date/Time of Note DATE: 08/05/18 TIME: 12:53 Exam/Review of Systems Exam Vitals Vital Signs Date Temp Pulse Resp B/P (MAP) Pulse Ox O2 O2 Flow FiO2 Time Delivery Rate 08/05/18 97.8 70 18 131/74 100 Room Air 07:34 (93) Intake and Output 08/04/18 08/04/18 08/05/18 1515:00 23:00 07:00 IntakeIntake Total 1480 ml 770 ml 50 ml OutputOutput Total 0 ml BalanceBalance 1480 ml 770 ml 50 ml Results Result Diagram: 08/02/18 0640 08/02/18 0448 Results 24hrs Laboratory Tests Test 08/04/18 17:30 08/04/18 21:37 08/05/18 07:52 Bedside Glucose 120 138 109 Medications Medication Current Medications IV Flush (NS 3 ml) 3 ml PER PROTOCOL IV ; Start 07/21/18 at 20:30 Ondansetron HCl (Zofran Inj) 4 mg Q6H PRN IV NAUSEA/VOMITING; Start 07/21/18 at 20:30 Acetaminophen (Tylenol Tab) 650 mg Q6H PRN PO .PAIN 1-3 OR TEMP Last administered on 08/04/18at 14:11; Admin Dose 650 MG; Start 07/21/18 at 20:30 Morphine Sulfate (morphine) 2 mg Q4H PRN IV .SEVERE PAIN 7-10; Start 07/21/18 at 20:30 Bisacodyl (Dulcolax) 5 mg DAILY PRN PO .CONSTIPATION Last administered on 07/24/18 16:17; Admin Dose 5 MG; Start 07/21/18 at 20:30 Carvedilol (Coreg) 25 mg BID PO Last administered on 08/05/18 08:56; Admin Dose 25 MG; Start 07/21/18 at 23:00 Nifedipine (Procardia Xl) 60 mg DAILY PO Last administered on 08/05/18 08:56; Admin Dose 60 MG; Start 07/22/18 at 09:00 Zinc Sulfate (Zinc Sulfate) 220 mg DAILY PO Last administered on 08/05/18 08:56; Admin Dose 220 MG; Start 07/22/18 at 09:00 Atorvastatin Calcium (Lipitor) 40 mg HS PO Last administered on 08/04/18 21:26; Admin Dose 40 MG; Start 07/21/18 at 23:21 Insulin Aspart (Novolog Insulin Pen) NOVOLOG *MILD* ALGORITHM WITH MEALS BEDTIME SC Last administered on 08/03/18 23:10; Admin Dose 2 UNIT; Start 07/22/18 at 08:00 Miscellaneous Information 1 ea NOTE XX ; Start 07/22/18 at 04:30 Glucose (Glutose) 15 gm Q15M PRN PO DECREASED GLUCOSE; Start 07/22/18 at 04:30 Glucose (Glutose) 22.5 gm Q15M PRN PO DECREASED GLUCOSE; Start 07/22/18 at 04:30 Dextrose (D50w Syringe) 25 ml Q15M PRN IV DECREASED GLUCOSE; Start 07/22/18 at 04:30 Dextrose (D50w Syringe) 50 ml Q15M PRN IV DECREASED GLUCOSE; Start 07/22/18 at 04:30 Glucagon (Glucagen) 1 mg Q15M PRN IM DECREASED GLUCOSE; Start 07/22/18 at 04:30 Glucose (Glutose) 15 gm Q15M PRN BUCCAL DECREASED GLUCOSE; Start 07/22/18 at 04:30 Gentamicin Sulfate (Gentamicin 0.1% Oint) 1 applic HS TOP Last administered on 07/29/18 23:15; Admin Dose 1 APPLIC; Start 07/22/18 at 21:00 Multi-Ingredient Ointment (Eucerin Cream) 1 applic BID TOP Last administered on 08/05/18 08:56; Admin Dose 1 APPLIC; Start 07/22/18 at 22:00 Insulin Glargine (Lantus) 9 units DAILY@2000 SC Last administered on 08/04/18 21:40; Admin Dose 9 UNITS; Start 07/25/18 at 20:00 Cefepime HCl 50 ml @ 100 mls/hr Q12 IVPB Last administered on 08/05/18 08:55; Admin Dose 100 MLS/HR; Start 07/25/18 at 18:00 Tigecycline 50 mg/ Sodium Chloride 100 ml @ 200 mls/hr Q12H IVPB Last administered on 08/05/18 07:53; Admin Dose 200 MLS/HR; Start 07/25/18 at 20:00 Sodium Biphosphate/ Sodium Phosphate (Fleet Enema) 133 ml DAILY PRN [place] CONSTIPATION Last administered on 08/05/18 10:46; Admin Dose 133 ML; Start 07/26/18 at 13:00 Alteplase, Recombinant (Cathflo (Activase)) 2 mg MAY REPEAT X1 PRN CATHETER IF CATHETER REMAINS OCCULUDED Last administered on 08/02/18 22:47; Admin Dose 2 MG; Start 08/02/18 at 21:30 Metronidazole (Flagyl) 500 mg Q8 PO Last administered on 08/05/18 05:52; Admin Dose 500 MG; Start 08/03/18 at 14:30 Docusate Sodium (Colace) 100 mg BID PO Last administered on 08/05/18 08:55; Admin Dose 100 MG; Start 08/04/18 at 21:00 SEBASTIAN BARRETO NP August 05, 2018 12:53
[2018-08-05 13:48] VITALS: BP 146/75; PULSE 72; RESP 18
--- NOTE | 2018-08-05 18:26 | PN ---
Date/Time of Note Date/Time of Note DATE: 08/05/18 TIME: 18:25 Assessment/Plan VTE Prophylaxis Risk score (from Nsg)>0 risk: 8 SCD applied (from Nsg): Yes Pharmacological prophylaxis: heparin Lines/Catheters IV Catheter Type (from Nrsg): PICC Line Central line still needed: Yes Urinary Cath still in place: No Assessment/Plan Hospital Course Well appearing in NAD AOx3 RRR CTAB Gangrene of index finger and toes A/P: 48 yo female with h/o critical illness for which received vasopressors and developed digital ischemia who recovered but developed gangrene of toes and finger who was referred to hospital for evaluation of leukocytosis. Found to have OM of feet - Abx per ID - perioperative management per podiatry, plan for repeat procedure on Thursday, wound vac for 2 months needed DMII: - sliding scale insulin hypertension: - continue nifedipine, coreg Result Diagram: 08/02/18 0640 08/02/18 0448 Results 24hrs Laboratory Tests Test 08/04/18 21:37 08/05/18 07:52 08/05/18 13:06 08/05/18 18:01 Bedside Glucose 138 109 145 157 Subjective 24 Hr Interval Summary Free Text/Dictation Stable, no complaints Exam/Review of Systems Exam Vitals Vital Signs Date Temp Pulse Resp B/P (MAP) Pulse Ox O2 O2 Flow FiO2 Time Delivery Rate 08/05/18 97.9 72 18 146/75 100 Room Air 13:48 (98) Intake and Output 08/04/18 08/04/18 08/05/18 1515:00 23:00 07:00 IntakeIntake Total 1480 ml 770 ml 50 ml OutputOutput Total 0 ml BalanceBalance 1480 ml 770 ml 50 ml Results Results 24hrs Laboratory Tests Test 08/04/18 21:37 08/05/18 07:52 08/05/18 13:06 08/05/18 18:01 Bedside Glucose 138 109 145 157 Medications Medication Current Medications IV Flush (NS 3 ml) 3 ml PER PROTOCOL IV ; Start 07/21/18 at 20:30 Ondansetron HCl (Zofran Inj) 4 mg Q6H PRN IV NAUSEA/VOMITING; Start 07/21/18 at 20:30 Acetaminophen (Tylenol Tab) 650 mg Q6H PRN PO .PAIN 1-3 OR TEMP Last administered on 08/04/18 14:11; Admin Dose 650 MG; Start 07/21/18 at 20:30 Morphine Sulfate (morphine) 2 mg Q4H PRN IV .SEVERE PAIN 7-10; Start 07/21/18 at 20:30 Bisacodyl (Dulcolax) 5 mg DAILY PRN PO .CONSTIPATION Last administered on 07/24/18 16:17; Admin Dose 5 MG; Start 07/21/18 at 20:30 Carvedilol (Coreg) 25 mg BID PO Last administered on 08/05/18 08:56; Admin Dose 25 MG; Start 07/21/18 at 23:00 Nifedipine (Procardia Xl) 60 mg DAILY PO Last administered on 08/05/18 08:56; Admin Dose 60 MG; Start 07/22/18 at 09:00 Zinc Sulfate (Zinc Sulfate) 220 mg DAILY PO Last administered on 08/05/18 08:56; Admin Dose 220 MG; Start 07/22/18 at 09:00 Atorvastatin Calcium (Lipitor) 40 mg HS PO Last administered on 08/04/18 21:26; Admin Dose 40 MG; Start 07/21/18 at 23:21 Insulin Aspart (Novolog Insulin Pen) NOVOLOG *MILD* ALGORITHM WITH MEALS BEDTIME SC Last administered on 08/05/18 13:30; Admin Dose 1 UNIT; Start 07/22/18 at 08:00 Miscellaneous Information 1 ea NOTE XX ; Start 07/22/18 at 04:30 Glucose (Glutose) 15 gm Q15M PRN PO DECREASED GLUCOSE; Start 07/22/18 at 04:30 Glucose (Glutose) 22.5 gm Q15M PRN PO DECREASED GLUCOSE; Start 07/22/18 at 04:30 Dextrose (D50w Syringe) 25 ml Q15M PRN IV DECREASED GLUCOSE; Start 07/22/18 at 04:30 Dextrose (D50w Syringe) 50 ml Q15M PRN IV DECREASED GLUCOSE; Start 07/22/18 at 04:30 Glucagon (Glucagen) 1 mg Q15M PRN IM DECREASED GLUCOSE; Start 07/22/18 at 04:30 Glucose (Glutose) 15 gm Q15M PRN BUCCAL DECREASED GLUCOSE; Start 07/22/18 at 04:30 Gentamicin Sulfate (Gentamicin 0.1% Oint) 1 applic HS TOP Last administered on 07/29/18 23:15; Admin Dose 1 APPLIC; Start 07/22/18 at 21:00 Multi-Ingredient Ointment (Eucerin Cream) 1 applic BID TOP Last administered on 08/05/18 08:56; Admin Dose 1 APPLIC; Start 07/22/18 at 22:00 Insulin Glargine (Lantus) 9 units DAILY@2000 SC Last administered on 08/04/18 21:40; Admin Dose 9 UNITS; Start 07/25/18 at 20:00 Cefepime HCl 50 ml @ 100 mls/hr Q12 IVPB Last administered on 08/05/18 08:55; Admin Dose 100 MLS/HR; Start 07/25/18 at 18:00 Tigecycline 50 mg/ Sodium Chloride 100 ml @ 200 mls/hr Q12H IVPB Last administered on 08/05/18 07:53; Admin Dose 200 MLS/HR; Start 07/25/18 at 20:00 Sodium Biphosphate/ Sodium Phosphate (Fleet Enema) 133 ml DAILY PRN [place] CONSTIPATION Last administered on 08/05/18 10:46; Admin Dose 133 ML; Start 07/26/18 at 13:00 Alteplase, Recombinant (Cathflo (Activase)) 2 mg MAY REPEAT X1 PRN CATHETER IF CATHETER REMAINS OCCULUDED Last administered on 08/02/18 22:47; Admin Dose 2 MG; Start 08/02/18 at 21:30 Metronidazole (Flagyl) 500 mg Q8 PO Last administered on 08/05/18 13:28; Admin Dose 500 MG; Start 08/03/18 at 14:30 Docusate Sodium (Colace) 100 mg BID PO Last administered on 08/05/18 08:55; Admin Dose 100 MG; Start 08/04/18 at 21:00 BRET PARIKH MD August 05, 2018 18:26
[2018-08-05 20:47] VITALS: BP 123/69; PULSE 75; RESP 18
[2018-08-05] MEDS: INSULIN GLARGINE [LANTus] (100 UNITS/ML) SYG SC SCH (20:50)
[2018-08-05] MEDS: GENTAMICIN 0.1% 15 GM OINT TOP SCH (21:00)
[2018-08-05] MEDS: ATORVASTATIN 40 MG TAB PO SCH (21:04)
[2018-08-05] MEDS: ACETAMINOPHEN 325 MG TAB PO PRN (21:05)
[2018-08-06 01:50] VITALS: BP 116/69; PULSE 65; RESP 17
[2018-08-06] MEDS: metroNIDAZOLE 500 MG TAB PO SCH ×3 (05:59→22:50)
[2018-08-06] MEDS: EUCERIN 113 GM CR TOP SCH ×2 (08:13→21:11)
[2018-08-06] MEDS: TIGECYCLINE 50 MG in SOD CHLORIDE 0.9% 100 ML IVPB SCH ×2 (08:13→21:06)
[2018-08-06] MEDS: ZINC SULFATE 220 MG CAP PO SCH (08:13)
[2018-08-06] MEDS: DOCUSATE SODIUM 100 MG CAP PO SCH ×2 (08:13→21:10)
[2018-08-06] MEDS: NIFEdipine (XL) 60 MG TAB PO SCH (08:17)
[2018-08-06 08:20] VITALS: BP 128/66; PULSE 77; RESP 18
[2018-08-06] MEDS: INSULIN ASPART [NOVOLOG] 3 ML PEN SC SCH ×4 (08:23→23:19)
--- NOTE | 2018-08-06 09:31 | PN ---
DATE: 08/06/2018 SUBJECTIVE: The patient is stable, no events overnight. OBJECTIVE: VITAL SIGNS: Blood pressure is 128/66, pulse 77, respiration 18, temperature 97.7. HEENT: Head is normocephalic. NECK: Supple. HEART: Regular rate. LUNGS: Show diminished breath sounds at base. ABDOMEN: Soft, nontender to palpation without rebound or guarding. EXTREMITIES: Negative for clubbing, cyanosis. Positive dressing clean, dry, intact. DERMATOLOGIC: No rashes. MUSCULOSKELETAL: No joint effusion. NEUROLOGIC: No change in exam. MEDICATIONS: Have been reviewed. LABORATORY DATA: Has been reviewed. ASSESSMENT AND PLAN: 1. Nonoliguric acute kidney injury with previous baseline creatinine 1.0 to 1.3 mg/dL. Etiology of acute kidney injury is secondary to hemodynamics. Renal function stabilized. Continue current treat ment plan, supportive care, renally dose all meds. 2. Anemia. Monitor hemoglobin and hematocrit levels, no need for Epogen. 3. Mineral bone disorder, monitor calcium and phosphorus levels. 4. Bilateral gangrenous toe with osteomyelitis. The patient is status post amputation. Continue wi th wound VAC. Continue to monitor. Follow up with podiatry. 5. Diabetes. Continue current insulin regimen. 6. Sepsis secondary to osteomyelitis. Continue current antibiotic regimen. 7. History of cerebrovascular accident. Dictated By: PARI TRAN DO NR/NTS Conf#: [id number] DID#: [id number] CC: MELISSA MORRISSEY MD;*EndCC*
[2018-08-06] MEDS: CEFEPIME 2GM/50 ML IVPB SCH ×2 (09:47→22:50)
--- NOTE | 2018-08-06 12:27 | CONS ---
Assessment/Plan Assessment/Plan Hospital Course (Demo Recall) No acute changes Antimicrobials: Tygacil, cefepime, Flagyl Microbiology: Wound culture grew multidrug-resistant Acinetobacter, enterococcus, E. coli, Bacteroides Physical examination: Well-developed well-nourished middle-aged woman who is alert in no distress. Head atraumatic normocephalic sclera nonicteric. Neck is supple. Chest rise symmetrical, breath sounds clear. Heart: S1-S2. Abdomen soft bowel sounds present. Extremities with bilateral lower extremities dressing clean dry and intact Assessment: 1. Bilateral lower extremities gangrene/Osteomyelitis, status post left tr ansmetatarsal amputation/right fifth and fourth digits amputation and third digit debridement 2. Chronic kidney disease, history of hemodialysis 3. Diabetes 4. RUE PICC Plan: Remains stable, pathology + acute OM R foot, continue on current abx for 6 weeks post surgery, wound management per podiatry Consultation Date/Type/Reason Admit Date/Time July 21, 2018 at 20:31 Initial Consult Date Type of Consult id Date/Time of Note DATE: 08/06/18 TIME: 12:26 Exam/Review of Systems Exam Vitals Vital Signs Date Temp Pulse Resp B/P (MAP) Pulse Ox O2 O2 Flow FiO2 Time Delivery Rate 08/06/18 97.7 77 18 128/66 100 Room Air 08:20 (86) Intake and Output 08/05/18 08/05/18 08/06/18 1414:59 22:59 06:59 IntakeIntake Total 600 ml 150 ml OutputOutput Total 300 ml 0 ml BalanceBalance 300 ml 150 ml Results Result Diagram: 08/02/18 0640 08/02/18 0448 Results 24hrs Laboratory Tests Test 08/05/18 13:06 08/05/18 18:01 08/05/18 20:48 08/06/18 07:59 Bedside Glucose 145 157 127 173 Medications Medication Current Medications IV Flush (NS 3 ml) 3 ml PER PROTOCOL IV ; Start 07/21/18 at 20:30 Ondansetron HCl (Zofran Inj) 4 mg Q6H PRN IV NAUSEA/VOMITING; Start 07/21/18 at 20:30 Acetaminophen (Tylenol Tab) 650 mg Q6H PRN PO .PAIN 1-3 OR TEMP Last administered on 08/05/18at 21:05; Admin Dose 650 MG; Start 07/21/18 at 20:30 Morphine Sulfate (morphine) 2 mg Q4H PRN IV .SEVERE PAIN 7-10; Start 07/21/18 at 20:30 Bisacodyl (Dulcolax) 5 mg DAILY PRN PO .CONSTIPATION Last administered on 07/24/18 16:17; Admin Dose 5 MG; Start 07/21/18 at 20:30 Carvedilol (Coreg) 25 mg BID PO Last administered on 08/06/18at 08:17; Admin Dose 25 MG; Start 07/21/18 at 23:00 Nifedipine (Procardia Xl) 60 mg DAILY PO Last administered on 08/06/18 08:17; Admin Dose 60 MG; Start 07/22/18 at 09:00 Zinc Sulfate (Zinc Sulfate) 220 mg DAILY PO Last administered on 08/06/18at 08:13; Admin Dose 220 MG; Start 07/22/18 at 09:00 Atorvastatin Calcium (Lipitor) 40 mg HS PO Last administered on 08/05/18at 21:04; Admin Dose 40 MG; Start 07/21/18 at 23:21 Insulin Aspart (Novolog Insulin Pen) NOVOLOG *MILD* ALGORITHM WITH MEALS BEDTIME SC Last administered on 08/06/18at 08:23; Admin Dose 1 UNIT; Start 07/22/18 at 08:00 Miscellaneous Information 1 ea NOTE XX ; Start 07/22/18 at 04:30 Glucose (Glutose) 15 gm Q15M PRN PO DECREASED GLUCOSE; Start 07/22/18 at 04:30 Glucose (Glutose) 22.5 gm Q15M PRN PO DECREASED GLUCOSE; Start 07/22/18 at 04:30 Dextrose (D50w Syringe) 25 ml Q15M PRN IV DECREASED GLUCOSE; Start 07/22/18 at 04:30 Dextrose (D50w Syringe) 50 ml Q15M PRN IV DECREASED GLUCOSE; Start 07/22/18 at 04:30 Glucagon (Glucagen) 1 mg Q15M PRN IM DECREASED GLUCOSE; Start 07/22/18 at 04:30 Glucose (Glutose) 15 gm Q15M PRN BUCCAL DECREASED GLUCOSE; Start 07/22/18 at 04:30 Gentamicin Sulfate (Gentamicin 0.1% Oint) 1 applic HS TOP Last administered on 07/29/18at 23:15; Admin Dose 1 APPLIC; Start 07/22/18 at 21:00 Multi-Ingredient Ointment (Eucerin Cream) 1 applic BID TOP Last administered on 08/06/18 08:13; Admin Dose 1 APPLIC; Start 07/22/18 at 22:00 Insulin Glargine (Lantus) 9 units DAILY@2000 SC Last administered on 08/05/18 20:50; Admin Dose 9 UNITS; Start 07/25/18 at 20:00 Cefepime HCl 50 ml @ 100 mls/hr Q12 IVPB Last administered on 08/06/18 09:47; Admin Dose 100 MLS/HR; Start 07/25/18 at 18:00 Tigecycline 50 mg/ Sodium Chloride 100 ml @ 200 mls/hr Q12H IVPB Last administered on 08/06/18 08:13; Admin Dose 200 MLS/HR; Start 07/25/18 at 20:00 Sodium Biphosphate/ Sodium Phosphate (Fleet Enema) 133 ml DAILY PRN [place] CONSTIPATION Last administered on 08/05/18 10:46; Admin Dose 133 ML; Start 07/26/18 at 13:00 Alteplase, Recombinant (Cathflo (Activase)) 2 mg MAY REPEAT X1 PRN CATHETER IF CATHETER REMAINS OCCULUDED Last administered on 08/02/18 22:47; Admin Dose 2 MG; Start 08/02/18 at 21:30 Metronidazole (Flagyl) 500 mg Q8 PO Last administered on 08/06/18 05:59; Admin Dose 500 MG; Start 08/03/18 at 14:30 Docusate Sodium (Colace) 100 mg BID PO Last administered on 08/06/18 08:13; Admin Dose 100 MG; Start 08/04/18 at 21:00 SEBASTIAN BARRETO NP August 06, 2018 12:27
[2018-08-06 14:13] VITALS: BP 149/72; PULSE 72; RESP 18
[2018-08-06] MEDS: ACETAMINOPHEN 325 MG TAB PO PRN (14:23)
--- NOTE | 2018-08-06 16:11 | PN ---
Date/Time of Note Date/Time of Note DATE: 08/06/18 TIME: 16:10 Assessment/Plan VTE Prophylaxis Risk score (from Nsg)>0 risk: 3 SCD applied (from Nsg): Yes Pharmacological prophylaxis: heparin Lines/Catheters IV Catheter Type (from Nrsg): PICC Line Central line still needed: Yes Urinary Cath still in place: No Assessment/Plan Hospital Course Well appearing in NAD AOx3 RRR CTAB Gangrene of index finger and toes A/P: 48 yo female with h/o critical illness for which received vasopressors and developed digital ischemia who recovered but developed gangrene of toes and finger who was referred to hospital for evaluation of leukocytosis. Found to have OM of feet - Abx per ID - perioperative management per podiatry, wound vac for 2 months needed DMII: - sliding scale insulin hypertension: - continue nifedipine, coreg Ready for dc home with HH, IV abx and wound vacs Result Diagram: 08/02/18 0640 08/02/18 0448 Results 24hrs Laboratory Tests Test 08/05/18 18:01 08/05/18 20:48 08/06/18 07:59 08/06/18 12:40 Bedside Glucose 157 127 173 150 Subjective 24 Hr Interval Summary Free Text/Dictation Dressing changed today Doing well Exam/Review of Systems Exam Vitals Vital Signs Date Temp Pulse Resp B/P (MAP) Pulse Ox O2 O2 Flow FiO2 Time Delivery Rate 08/06/18 98.1 72 18 149/72 100 14:13 (97) 08/06/18 Room Air 08:20 Intake and Output 08/05/18 08/05/18 08/06/18 1515:00 23:00 07:00 IntakeIntake Total 600 ml 150 ml OutputOutput Total 300 ml 0 ml BalanceBalance 300 ml 150 ml Results Results 24hrs Laboratory Tests Test 08/05/18 18:01 08/05/18 20:48 08/06/18 07:59 08/06/18 12:40 Bedside Glucose 157 127 173 150 Medications Medication Current Medications IV Flush (NS 3 ml) 3 ml PER PROTOCOL IV ; Start 07/21/18 at 20:30 Ondansetron HCl (Zofran Inj) 4 mg Q6H PRN IV NAUSEA/VOMITING; Start 07/21/18 at 20:30 Acetaminophen (Tylenol Tab) 650 mg Q6H PRN PO .PAIN 1-3 OR TEMP Last administered on 08/06/18at 14:23; Admin Dose 650 MG; Start 07/21/18 at 20:30 Morphine Sulfate (morphine) 2 mg Q4H PRN IV .SEVERE PAIN 7-10; Start 07/21/18 at 20:30 Bisacodyl (Dulcolax) 5 mg DAILY PRN PO .CONSTIPATION Last administered on 07/24/18 16:17; Admin Dose 5 MG; Start 07/21/18 at 20:30 Carvedilol (Coreg) 25 mg BID PO Last administered on 08/06/18 08:17; Admin Dose 25 MG; Start 07/21/18 at 23:00 Nifedipine (Procardia Xl) 60 mg DAILY PO Last administered on 08/06/18 08:17; Admin Dose 60 MG; Start 07/22/18 at 09:00 Zinc Sulfate (Zinc Sulfate) 220 mg DAILY PO Last administered on 08/06/18 08:13; Admin Dose 220 MG; Start 07/22/18 at 09:00 Atorvastatin Calcium (Lipitor) 40 mg HS PO Last administered on 08/05/18at 21:04; Admin Dose 40 MG; Start 07/21/18 at 23:21 Insulin Aspart (Novolog Insulin Pen) NOVOLOG *MILD* ALGORITHM WITH MEALS BE DTIME SC Last administered on 08/06/18at 12:45; Admin Dose 1 UNIT; Start 07/22/18 at 08:00 Miscellaneous Information 1 ea NOTE XX ; Start 07/22/18 at 04:30 Glucose (Glutose) 15 gm Q15M PRN PO DECREASED GLUCOSE; Start 07/22/18 at 04:30 Glucose (Glutose) 22.5 gm Q15M PRN PO DECREASED GLUCOSE; Start 07/22/18 at 04:30 Dextrose (D50w Syringe) 25 ml Q15M PRN IV DECREASED GLUCOSE; Start 07/22/18 at 04:30 Dextrose (D50w Syringe) 50 ml Q15M PRN IV DECREASED GLUCOSE; Start 07/22/18 at 04:30 Glucagon (Glucagen) 1 mg Q15M PRN IM DECREASED GLUCOSE; Start 07/22/18 at 04:30 Glucose (Glutose) 15 gm Q15M PRN BUCCAL DECREASED GLUCOSE; Start 07/22/18 at 04:30 Gentamicin Sulfate (Gentamicin 0.1% Oint) 1 applic HS TOP Last administered on 07/29/18 23:15; Admin Dose 1 APPLIC; Start 07/22/18 at 21:00 Multi-Ingredient Ointment (Eucerin Cream) 1 applic BID TOP Last administered on 08/06/18 08:13; Admin Dose 1 APPLIC; Start 07/22/18 at 22:00 Insulin Glargine (Lantus) 9 units DAILY@2000 SC Last administered on 08/05/18 20:50; Admin Dose 9 UNITS; Start 07/25/18 at 20:00 Cefepime HCl 50 ml @ 100 mls/hr Q12 IVPB Last administered on 08/06/18 09:47; Admin Dose 100 MLS/HR; Start 07/25/18 at 18:00 Tigecycline 50 mg/ Sodium Chloride 100 ml @ 200 mls/hr Q12H IVPB Last administered on 08/06/18 08:13; Admin Dose 200 MLS/HR; Start 07/25/18 at 20:00 Sodium Biphosphate/ Sodium Phosphate (Fleet Enema) 133 ml DAILY PRN [place] CONSTIPATION Last administered on 08/05/18 10:46; Admin Dose 133 ML; Start 07/26/18 at 13:00 Alteplase, Recombinant (Cathflo (Activase)) 2 mg MAY REPEAT X1 PRN CATHETER IF CATHETER REMAINS OCCULUDED Last administered on 08/02/18 22:47; Admin Dose 2 MG; Start 08/02/18 at 21:30 Metronidazole (Flagyl) 500 mg Q8 PO Last administered on 08/06/18 14:18; Admin Dose 500 MG; Start 08/03/18 at 14:30 Docusate Sodium (Colace) 100 mg BID PO Last administered on 08/06/18 08:13; Admin Dose 100 MG; Start 08/04/18 at 21:00 BRET PARIKH MD August 06, 2018 16:11
[2018-08-06 19:57] VITALS: BP 132/71; PULSE 71; RESP 18
[2018-08-06] MEDS: GENTAMICIN 0.1% 15 GM OINT TOP SCH (21:00)
[2018-08-06] MEDS: ATORVASTATIN 40 MG TAB PO SCH (21:10)
--- NOTE | 2018-08-06 23:03 | CONS ---
Assessment/Plan Assessment/Plan Assessment/Plan (Daily) Bilateral foot gangrene. Osteomyelitis. Diabetic ulceration with extensive tissue loss. History of stroke. Anemia. Diabetes type 2. Chronic kidney disease. PLAN: Dressings were changed and wound VAC on hold and betadine dressings were applied. Will resume wound VAC therapy on Thursday. CAM boot dispensed to patient and permitted to use for transfer. Patient would benefit from rehab therapy 4th floor. Consultation Date/Type/Reason Admit Date/Time July 21, 2018 at 20:31 Initial Consult Date Date/Time of Note DATE: 08/06/18 TIME: 23:03 24 HR Interval Summary Free Text/Dictation No acute events overnight. Exam/Review of Systems Exam Vitals Vital Signs Date Temp Pulse Resp B/P (MAP) Pulse Ox O2 O2 Flow FiO2 Time Delivery Rate 08/06/18 97.9 71 18 132/71 98 19:57 (91) 08/06/18 Room Air 08:20 Intake and Output 08/05/18 08/05/18 08/06/18 1515:00 23:00 07:00 IntakeIntake Total 600 ml 150 ml OutputOutput Total 300 ml 0 ml BalanceBalance 300 ml 150 ml Exam Skin grafts in place, no dehiscence noted, maceration noted to suleiman wound region. No purulent drainage, no proximal streaking. Absent protective sensations Left foot TMA site appreciated Right foot digits 3-5 amputated. Results Result Diagram: 08/02/18 0640 08/02/18 0448 Results 24hrs Laboratory Tests Test 08/06/18 07:59 08/06/18 12:40 08/06/18 17:46 Bedside Glucose 173 150 113 Medications Medication Current Medications IV Flush (NS 3 ml) 3 ml PER PROTOCOL IV ; Start 07/21/18 at 20:30 Ondansetron HCl (Zofran Inj) 4 mg Q6H PRN IV NAUSEA/VOMITING; Start 07/21/18 at 20:30 Acetaminophen (Tylenol Tab) 650 mg Q6H PRN PO .PAIN 1-3 OR TEMP Last administered on 08/06/18at 14:23; Admin Dose 650 MG; Start 07/21/18 at 20:30 Morphine Sulfate (morphine) 2 mg Q4H PRN IV .SEVERE PAIN 7-10; Start 07/21/18 at 20:30 Bisacodyl (Dulcolax) 5 mg DAILY PRN PO .CONSTIPATION Last administered on 07/24/18 16:17; Admin Dose 5 MG; Start 07/21/18 at 20:30 Carvedilol (Coreg) 25 mg BID PO Last administered on 08/06/18at 21:10; Admin Dose 25 MG; Start 07/21/18 at 23:00 Nifedipine (Procardia Xl) 60 mg DAILY PO Last administered on 08/06/18 08:17; Admin Dose 60 MG; Start 07/22/18 at 09:00 Zinc Sulfate (Zinc Sulfate) 220 mg DAILY PO Last administered on 08/06/18 08:13; Admin Dose 220 MG; Start 07/22/18 at 09:00 Atorvastatin Calcium (Lipitor) 40 mg HS PO Last administered on 08/06/18 21:10; Admin Dose 40 MG; Start 07/21/18 at 23:21 Insulin Aspart (Novolog Insulin Pen) NOVOLOG *MILD* ALGORITHM WITH MEALS BEDTIME SC Last administered on 08/06/18at 12:45; Admin Dose 1 UNIT; Start 07/22/18 at 08:00 Miscellaneous Information 1 ea NOTE XX ; Start 07/22/18 at 04:30 Glucose (Glutose) 15 gm Q15M PRN PO DECREASED GLUCOSE; Start 07/22/18 at 04:30 Glucose (Glutose) 22.5 gm Q15M PRN PO DECREASED GLUCOSE; Start 07/22/18 at 04:30 Dextrose (D50w Syringe) 25 ml Q15M PRN IV DECREASED GLUCOSE; Start 07/22/18 at 04:30 Dextrose (D50w Syringe) 50 ml Q15M PRN IV DECREASED GLUCOSE; Start 07/22/18 at 04:30 Glucagon (Glucagen) 1 mg Q15M PRN IM DECREASED GLUCOSE; Start 07/22/18 at 04:30 Glucose (Glutose) 15 gm Q15M PRN BUCCAL DECREASED GLUCOSE; Start 07/22/18 at 04:30 Gentamicin Sulfate (Gentamicin 0.1% Oint) 1 applic HS TOP Last administered on 07/29/18at 23:15; Admin Dose 1 APPLIC; Start 07/22/18 at 21:00 Multi-Ingredient Ointment (Eucerin Cream) 1 applic BID TOP Last administered on 08/06/18at 21:11; Admin Dose 1 APPLIC; Start 07/22/18 at 22:00 Insulin Glargine (Lantus) 9 units DAILY@2000 SC Last administered on 08/05/18 20:50; Admin Dose 9 UNITS; Start 07/25/18 at 20:00 Cefepime HCl 50 ml @ 100 mls/hr Q12 IVPB Last administered on 08/06/18 22:50; Admin Dose 100 MLS/HR; Start 07/25/18 at 18:00 Tigecycline 50 mg/ Sodium Chloride 100 ml @ 200 mls/hr Q12H IVPB Last administered on 08/06/18 21:06; Admin Dose 200 MLS/HR; Start 07/25/18 at 20:00 Sodium Biphosphate/ Sodium Phosphate (Fleet Enema) 133 ml DAILY PRN [place] CONSTIPATION Last administered on 08/05/18 10:46; Admin Dose 133 ML; Start 07/26/18 at 13:00 Alteplase, Recombinant (Cathflo (Activase)) 2 mg MAY REPEAT X1 PRN CATHETER IF CATHETER REMAINS OCCULUDED Last administered on 08/02/18at 22:47; Admin Dose 2 MG; Start 08/02/18 at 21:30 Metronidazole (Flagyl) 500 mg Q8 PO Last administered on 08/06/18 22:50; Admin Dose 500 MG; Start 08/03/18 at 14:30 Docusate Sodium (Colace) 100 mg BID PO Last administered on 08/06/18 21:10; Admin Dose 100 MG; Start 08/04/18 at 21:00 ANANT BROUSSARD DPM August 06, 2018 23:03
[2018-08-06] MEDS: INSULIN GLARGINE [LANTus] (100 UNITS/ML) SYG SC SCH (23:20)
[2018-08-07 01:34] VITALS: BP 137/70; PULSE 79; RESP 18
[2018-08-07] MEDS: metroNIDAZOLE 500 MG TAB PO SCH ×3 (05:50→22:03)
[2018-08-07 07:57] VITALS: BP 124/72; PULSE 71; RESP 18
[2018-08-07] MEDS: INSULIN ASPART [NOVOLOG] 3 ML PEN SC SCH ×5 (08:00→22:51)
[2018-08-07] MEDS: ZINC SULFATE 220 MG CAP PO SCH (08:26)
[2018-08-07] MEDS: TIGECYCLINE 50 MG in SOD CHLORIDE 0.9% 100 ML IVPB SCH ×2 (08:26→20:15)
[2018-08-07] MEDS: NIFEdipine (XL) 60 MG TAB PO SCH (08:28)
[2018-08-07] MEDS: EUCERIN 113 GM CR TOP SCH ×2 (08:28→20:22)
[2018-08-07] MEDS: DOCUSATE SODIUM 100 MG CAP PO SCH ×2 (08:28→20:20)
[2018-08-07] MEDS: CEFEPIME 2GM/50 ML IVPB SCH ×2 (09:23→22:03)
--- NOTE | 2018-08-07 10:22 | PN ---
DATE: 08/07/2018 SUBJECTIVE: Patient is stable. No events overnight. OBJECTIVE: VITAL SIGNS: Blood pressure is 124/72, pulse 71, respiration 18, temperature 98.5. HEENT: Head is normocephalic. NECK: Supple. HEART: Regular rate. LUNGS: Show diminished breath sounds at base. ABDOMEN: Soft, nontender to palpation. No rebound or guarding. EXTREMITIES: Negative for clubbing, cyanosis, no edema. DERMATOLOGIC: No rashes. MUSCULOSKELETAL: No joint effusion. NEUROLOGIC: No change in exam. MEDICATIONS: Have been reviewed. LABORATORY DATA: Has been reviewed. ASSESSMENT AND PLAN: 1. Nonoliguric acute kidney injury. Previous baseline creatinine of l.0-1.3 mg roughly. Etiology o f acute kidney injury is secondary to hemodynamics. Renal function stabilized. Continue current beena atment plan, supportive care, renally dose all meds. 2. Anemia. Monitor hemoglobin and hematocrit levels, no need for Epogen. 3. Mineral bone disorder, monitor calcium and phosphorus levels. 4. Bilateral gangrenous toe with osteomyelitis. The patient is status post amputation. Continue to monitor. Follow up with podiatry. 5. Diabetes. Continue current insulin regimen. 6. Sepsis. Patient is completing antibiotic course. 7. History of cerebrovascular accident. Dictated By: PARI TRAN DO NR/NTS Conf#: [id number] DID#: [id number] CC: MELISSA MORRISSEY MD;*EndCC*
[2018-08-07] MEDS: ONDANSETRON 4 MG INJ IV PRN ×2 (12:33→19:42)
[2018-08-07] MEDS: NA PHOSPHATE/BIPHOS 133 ML ENEMA PR PRN (12:37)
[2018-08-07 13:44] VITALS: BP 128/70; PULSE 71; RESP 16
--- NOTE | 2018-08-07 13:55 | CONS ---
Consultation Date/Type/Reason Admit Date/Time July 21, 2018 at 20:31 Initial Consult Date Type of Consult SUBJECTIVE: Pt is awake, alert, no fevers. No acute events over night. VS: stable T: 98.3 LABS: Reviewed. Pathology: + acute OM R foot Antimicrobials: Tygacil, cefepime, Flagyl Physical examination: GEN: Well-developed well-nourished middle-aged woman, who is alert in no dis tress. HENT: Head atraumatic normocephalic, sclera nonicteric. Neck is supple. PULM: Chest rise symmetrical, breath sounds clear. Heart: S1-S2. Abdomen soft bowel sounds present. Extremities with bilateral lower extremities dressing clean dry and intact Assessment: 1. Bilateral lower extremities gangrene/Osteomyelitis, status post left transmetatarsal amputation/right fifth and fourth digits amputation and third digit debridement 2. Chronic kidney disease, history of hemodialysis 3. Diabetes 4. RUE PICC Plan: Pt is stable. Continue with current abx. Podiatry recommendations noted. Date/Time of Note DATE: 08/07/18 TIME: 13:51 Exam/Review of Systems Exam Vitals Vital Signs Date Temp Pulse Resp B/P (MAP) Pulse Ox O2 O2 Flow FiO2 Time Delivery Rate 08/07/18 98.3 71 16 128/70 100 Room Air 13:44 (89) Intake and Output 08/06/18 08/06/18 08/07/18 1515:00 23:00 07:00 IntakeIntake Total 630 ml 480 ml 1090 ml BalanceBalance 630 ml 480 ml 1090 ml Results Results 24hrs Laboratory Tests Test 08/06/18 17:46 08/06/18 23:15 08/07/18 04:52 08/07/18 05:28 Bedside Glucose 113 254 H 68 L 107 Test 08/07/18 05:49 08/07/18 08:11 08/07/18 12:32 Bedside Glucose 108 123 130 Medications Medication Current Medications IV Flush (NS 3 ml) 3 ml PER PROTOCOL IV ; Start 07/21/18 at 20:30 Ondansetron HCl (Zofran Inj) 4 mg Q6H PRN IV NAUSEA/VOMITING Last administered on 08/07/18at 12:33; Admin Dose 4 MG; Start 07/21/18 at 20:30 Acetaminophen (Tylenol Tab) 650 mg Q6H PRN PO .PAIN 1-3 OR TEMP Last administered on 08/06/18at 14:23; Admin Dose 650 MG; Start 07/21/18 at 20:30 Morphine Sulfate (morphine) 2 mg Q4H PRN IV .SEVERE PAIN 7-10; Start 07/21/18 at 20:30 Bisacodyl (Dulcolax) 5 mg DAILY PRN PO .CONSTIPATION Last administered on 07/24/18at 16:17; Admin Dose 5 MG; Start 07/21/18 at 20:30 Carvedilol (Coreg) 25 mg BID PO Last administered on 08/07/18at 08:27; Admin Dose 25 MG; Start 07/21/18 at 23:00 Nifedipine (Procardia Xl) 60 mg DAILY PO Last administered on 08/07/18at 08:28; Admin Dose 60 MG; Start 07/22/18 at 09:00 Zinc Sulfate (Zinc Sulfate) 220 mg DAILY PO Last administered on 08/07/18at 08:26; Admin Dose 220 MG; Start 07/22/18 at 09:00 Atorvastatin Calcium (Lipitor) 40 mg HS PO Last administered on 08/06/18at 21:10; Admin Dose 40 MG; Start 07/21/18 at 23:21 Insulin Aspart (Novolog Insulin Pen) NOVOLOG *MILD* ALGORITHM WITH MEALS BEDTIME SC Last administered on 08/06/18at 23:19; Admin Dose 2 UNIT; Start 07/22/18 at 08:00 Miscellaneous Information 1 ea NOTE XX ; Start 07/22/18 at 04:30 Glucose (Glutose) 15 gm Q15M PRN PO DECREASED GLUCOSE; Start 07/22/18 at 04:30 Glucose (Glutose) 22.5 gm Q15M PRN PO DECREASED GLUCOSE; Start 07/22/18 at 04:30 Dextrose (D50w Syringe) 25 ml Q15M PRN IV DECREASED GLUCOSE; Start 07/22/18 at 04:30 Dextrose (D50w Syringe) 50 ml Q15M PRN IV DECREASED GLUCOSE; Start 07/22/18 at 04:30 Glucagon (Glucagen) 1 mg Q15M PRN IM DECREASED GLUCOSE; Start 07/22/18 at 04:30 Glucose (Glutose) 15 gm Q15M PRN BUCCAL DECREASED GLUCOSE; Start 07/22/18 at 04:30 Gentamicin Sulfate (Gentamicin 0.1% Oint) 1 applic HS TOP Last administered on 07/29/18 23:15; Admin Dose 1 APPLIC; Start 07/22/18 at 21:00 Multi-Ingredient Ointment (Eucerin Cream) 1 applic BID TOP Last administered on 08/07/18 08:28; Admin Dose 1 APPLIC; Start 07/22/18 at 22:00 Insulin Glargine (Lantus) 9 units DAILY@2000 SC Last administered on 08/06/18 23:20; Admin Dose 9 UNITS; Start 07/25/18 at 20:00 Cefepime HCl 50 ml @ 100 mls/hr Q12 IVPB Last administered on 08/07/18 09:23; Admin Dose 100 MLS/HR; Start 07/25/18 at 18:00 Tigecycline 50 mg/ Sodium Chloride 100 ml @ 200 mls/hr Q12H IVPB Last administered on 08/07/18 08:26; Admin Dose 200 MLS/HR; Start 07/25/18 at 20:00 Sodium Biphosphate/ Sodium Phosphate (Fleet Enema) 133 ml DAILY PRN [place] CONSTIPATION Last administered on 08/07/18 12:37; Admin Dose 133 ML; Start at 13:00 Alteplase, Recombinant (Cathflo (Activase)) 2 mg MAY REPEAT X1 PRN CATHETER IF CATHETER REMAINS OCCULUDED Last administered on 08/02/18 22:47; Admin Dose 2 MG; Start 08/02/18 at 21:30 Metronidazole (Flagyl) 500 mg Q8 PO Last administered on 08/07/18 05:50; Admin Dose 500 MG; Start 08/03/18 at 14:30 Docusate Sodium (Colace) 100 mg BID PO Last administered on 08/06/18 21:10; Admin Dose 100 MG; Start 08/04/18 at 21:00 NIMESH DAWKINS August 07, 2018 13:55
[2018-08-07] MEDS: ACETAMINOPHEN 325 MG TAB PO PRN (16:29)
[2018-08-07 20:00] VITALS: BP 126/68; PULSE 76; RESP 18
[2018-08-07] MEDS: ATORVASTATIN 40 MG TAB PO SCH (20:21)
[2018-08-07] MEDS: GENTAMICIN 0.1% 15 GM OINT TOP SCH (20:22)
[2018-08-07] MEDS: INSULIN GLARGINE [LANTus] (100 UNITS/ML) SYG SC SCH (22:50)
[2018-08-08 02:00] VITALS: BP 112/67; PULSE 75; RESP 18
[2018-08-08] MEDS: metroNIDAZOLE 500 MG TAB PO SCH ×3 (05:11→22:39)
[2018-08-08 07:40] VITALS: BP 124/72; PULSE 71; RESP 18
[2018-08-08] MEDS: TIGECYCLINE 50 MG in SOD CHLORIDE 0.9% 100 ML IVPB SCH ×2 (08:24→20:51)
[2018-08-08] MEDS: EUCERIN 113 GM CR TOP SCH ×2 (08:25→20:59)
[2018-08-08] MEDS: NIFEdipine (XL) 60 MG TAB PO SCH (08:25)
[2018-08-08] MEDS: ZINC SULFATE 220 MG CAP PO SCH (08:25)
[2018-08-08] MEDS: DOCUSATE SODIUM 100 MG CAP PO SCH ×2 (08:26→21:00)
[2018-08-08] MEDS: INSULIN ASPART [NOVOLOG] 3 ML PEN SC SCH ×4 (08:31→20:53)
[2018-08-08] MEDS: CEFEPIME 2GM/50 ML IVPB SCH ×2 (09:33→21:51)
--- NOTE | 2018-08-08 12:46 | PN ---
DATE: 08/08/2018 SUBJECTIVE: The patient is stable overnight, no fevers, chills, nausea, vomiting, no shortness of br eath. OBJECTIVE: VITAL SIGNS: Blood pressure is 124/72, respirations 18, pulse 71, temperature 98.1. HEENT: Head is normocephalic. NECK: Supple. HEART: Regular rate. LUNGS: Show diminished breath sounds at the base. ABDOMEN: Soft, nontender to palpation without rebound or guarding. EXTREMITIES: Negative for clubbing, cyanosis. Positive dressing, clean, dry, intact. DERMATOLOGIC: No rashes. MUSCULOSKELETAL: No joint effusion. NEUROLOGIC: No change in exam. MEDICATIONS: The patient's medications have been reviewed. LABORATORY DATA: Has been reviewed. ASSESSMENT AND PLAN: 1. Nonoliguric acute kidney injury with a previous baseline creatinine of 1.3 mm per deciliter. [place] ology of MOR is secondary to hemodynamics. Renal function stabilized. Continue current treatment pl an, supportive care, renally dose all meds. 2. Anemia. Monitor hemoglobin and hematocrit levels. No need for Epogen at this time. 3. Mineral bone disorder, monitor calcium and phosphorus levels. 4. Bilateral gangrenous toes with osteomyelitis, status post amputation. Continue to monitor. Foll owup with podiatry. 5. Diabetes. Continue current insulin regimen. 6. Sepsis. Patient is completing antibiotic course. 7. History of cerebrovascular accident. Dictated By: PARI TRAN DO NR/NTS Conf#: [id number] DID#: [id number] CC: MELISSA MORRISSEY MD; BRET PARIKH MD;*EndCC*
--- NOTE | 2018-08-08 13:35 | CONS ---
Consultation Date/Type/Reason Admit Date/Time July 21, 2018 at 20:31 Initial Consult Date Type of Consult SUBJECTIVE: Pt is awake, alert, no fevers. No acute events over night. VS: stable T: 98.1 LABS: Reviewed. Pathology: + acute OM R foot Antimicrobials: Tygacil, cefepime, Flagyl Physical examination: GEN: Well-developed well-nourished middle-aged woman, who is alert in no dis tress. HENT: Head atraumatic normocephalic, sclera nonicteric. Neck is supple. PULM: Chest rise symmetrical, breath sounds clear. Heart: S1-S2. Abdomen soft bowel sounds present. Extremities with bilateral lower extremities dressing clean dry and intact Assessment: 1. Bilateral lower extremities gangrene/Osteomyelitis, status post left transmetatarsal amputation/right fifth and fourth digits amputation and third digit debridement 2. Chronic kidney disease, history of hemodialysis 3. Diabetes 4. RUE PICC Plan: Pt is stable. Continue with current abx. Podiatry recommendations noted. Date/Time of Note DATE: 08/08/18 TIME: 13:35 Exam/Review of Systems Exam Vitals Vital Signs Date Temp Pulse Resp B/P (MAP) Pulse Ox O2 O2 Flow FiO2 Time Delivery Rate 08/08/18 98.1 71 18 124/72 100 Room Air 07:40 (89) Intake and Output 08/07/18 08/07/18 08/08/18 1515:00 23:00 07:00 IntakeIntake Total 750 ml 510 ml BalanceBalance 750 ml 510 ml Results Results 24hrs Laboratory Tests Test 08/07/18 17:26 08/07/18 20:19 08/07/18 22:46 08/08/18 05:10 Bedside Glucose 201 60 L 194 117 Test 08/08/18 08:24 08/08/18 12:34 Bedside Glucose 143 89 Medications Medication Current Medications IV Flush (NS 3 ml) 3 ml PER PROTOCOL IV ; Start 07/21/18 at 20:30 Ondansetron HCl (Zofran Inj) 4 mg Q6H PRN IV NAUSEA/VOMITING Last administered on 08/07/18at 19:42; Admin Dose 4 MG; Start 07/21/18 at 20:30 Acetaminophen (Tylenol Tab) 650 mg Q6H PRN PO .PAIN 1-3 OR TEMP Last administered on 08/07/18 16:29; Admin Dose 650 MG; Start 07/21/18 at 20:30 Morphine Sulfate (morphine) 2 mg Q4H PRN IV .SEVERE PAIN 7-10; Start 07/21/18 at 20:30 Bisacodyl (Dulcolax) 5 mg DAILY PRN PO .CONSTIPATION Last administered on 07/24/18 16:17; Admin Dose 5 MG; Start 07/21/18 at 20:30 Carvedilol (Coreg) 25 mg BID PO Last administered on 08/08/18 08:25; Admin Dose 25 MG; Start 07/21/18 at 23:00 Nifedipine (Procardia Xl) 60 mg DAILY PO Last administered on 08/08/18 08:25; Admin Dose 60 MG; Start 07/22/18 at 09:00 Zinc Sulfate (Zinc Sulfate) 220 mg DAILY PO Last administered on 08/08/18 08:25; Admin Dose 220 MG; Start 07/22/18 at 09:00 Atorvastatin Calcium (Lipitor) 40 mg HS PO Last administered on 08/07/18 20:21; Admin Dose 40 MG; Start 07/21/18 at 23:21 Insulin Aspart (Novolog Insulin Pen) NOVOLOG *MILD* ALGORITHM WITH MEALS BEDTIME SC Last administered on 08/08/18 08:31; Admin Dose 1 UNIT; Start 07/22/18 at 08:00 Miscellaneous Information 1 ea NOTE XX ; Start 07/22/18 at 04:30 Glucose (Glutose) 15 gm Q15M PRN PO DECREASED GLUCOSE; Start 07/22/18 at 04:30 Glucose (Glutose) 22.5 gm Q15M PRN PO DECREASED GLUCOSE; Start 07/22/18 at 04:30 Dextrose (D50w Syringe) 25 ml Q15M PRN IV DECREASED GLUCOSE; Start 07/22/18 at 04:30 Dextrose (D50w Syringe) 50 ml Q15M PRN IV DECREASED GLUCOSE; Start 07/22/18 at 04:30 Glucagon (Glucagen) 1 mg Q15M PRN IM DECREASED GLUCOSE; Start 07/22/18 at 04:30 Glucose (Glutose) 15 gm Q15M PRN BUCCAL DECREASED GLUCOSE; Start 07/22/18 at 04:30 Gentamicin Sulfate (Gentamicin 0.1% Oint) 1 applic HS TOP Last administered on 07/29/18 23:15; Admin Dose 1 APPLIC; Start 07/22/18 at 21:00 Multi-Ingredient Ointment (Eucerin Cream) 1 applic BID TOP Last administered on 08/08/18 08:25; Admin Dose 1 APPLIC; Start 07/22/18 at 22:00 Insulin Glargine (Lantus) 9 units DAILY@2000 SC Last administered on 08/07/18 22:50; Admin Dose 9 UNITS; Start 07/25/18 at 20:00 Cefepime HCl 50 ml @ 100 mls/hr Q12 IVPB Last administered on 08/08/18 09:33; Admin Dose 100 MLS/HR; Start 07/25/18 at 18:00 Tigecycline 50 mg/ Sodium Chloride 100 ml @ 200 mls/hr Q12H IVPB Last admini stered on 08/08/18 08:24; Admin Dose 200 MLS/HR; Start 07/25/18 at 20:00 Sodium Biphosphate/ Sodium Phosphate (Fleet Enema) 133 ml DAILY PRN [place] CONSTIPATION Last administered on 08/07/18 12:37; Admin Dose 133 ML; Start 07/26/18 at 13:00 Alteplase, Recombinant (Cathflo (Activase)) 2 mg MAY REPEAT X1 PRN CATHETER IF CATHETER REMAINS OCCULUDED Last administered on 08/02/18 22:47; Admin Dose 2 MG; Start 08/02/18 at 21:30 Metronidazole (Flagyl) 500 mg Q8 PO Last administered on 08/08/18 05:11; Admin Dose 500 MG; Start 08/03/18 at 14:30 Docusate Sodium (Colace) 100 mg BID PO Last administered on 08/07/18 20:20; Admin Dose 100 MG; Start 08/04/18 at 21:00 NIMESH DAWKINS August 08, 2018 13:35
[2018-08-08] MEDS: ACETAMINOPHEN 325 MG TAB PO PRN (14:05)
--- NOTE | 2018-08-08 15:47 | PN ---
Date/Time of Note Date/Time of Note DATE: 08/08/18 TIME: 15:46 Assessment/Plan VTE Prophylaxis Risk score (from Nsg)>0 risk: 7 SCD applied (from Nsg): Yes Pharmacological prophylaxis: heparin Lines/Catheters IV Catheter Type (from Nrsg): PICC Line Central line still needed: Yes Urinary Cath still in place: No Assessment/Plan Hospital Course Well appearing in NAD AOx3 RRR CTAB Gangrene of index finger and toes A/P: 48 yo female with h/o critical illness for which received vasopressors and developed digital ischemia who recovered but developed gangrene of toes and finger who was referred to hospital for evaluation of leukocytosis. Found to have OM of feet - Abx per ID - perioperative management per podiatry, wound vac for 2 months needed DMII: - sliding scale insulin hypertension: - continue nifedipine, coreg Ready for dc home with HH, IV abx and wound vacs vs acute rehab Results 24hrs Laboratory Tests Test 08/07/18 17:26 08/07/18 20:19 08/07/18 22:46 08/08/18 05:10 Bedside Glucose 201 60 L 194 117 Test 08/08/18 08:24 08/08/18 12:34 Bedside Glucose 143 89 Subjective 24 Hr Interval Summary Free Text/Dictation No change to clinical status Exam/Review of Systems Exam Vitals Vital Signs Date Temp Pulse Resp B/P (MAP) Pulse Ox O2 O2 Flow FiO2 Time Delivery Rate 08/08/18 98.1 71 18 124/72 100 Room Air 07:40 (89) Intake and Output 08/07/18 08/07/18 08/08/18 1515:00 23:00 07:00 IntakeIntake Total 750 ml 510 ml BalanceBalance 750 ml 510 ml Results Results 24hrs Laboratory Tests Test 08/07/18 17:26 08/07/18 20:19 08/07/18 22:46 08/08/18 05:10 Bedside Glucose 201 60 L 194 117 Test 08/08/18 08:24 08/08/18 12:34 Bedside Glucose 143 89 Medications Medication Current Medications IV Flush (NS 3 ml) 3 ml PER PROTOCOL IV ; Start 07/21/18 at 20:30 Ondansetron HCl (Zofran Inj) 4 mg Q6H PRN IV NAUSEA/VOMITING Last administered on 08/07/18 19:42; Admin Dose 4 MG; Start 07/21/18 at 20:30 Acetaminophen (Tylenol Tab) 650 mg Q6H PRN PO .PAIN 1-3 OR TEMP Last a dministered on 08/08/18 14:05; Admin Dose 650 MG; Start 07/21/18 at 20:30 Morphine Sulfate (morphine) 2 mg Q4H PRN IV .SEVERE PAIN 7-10; Start 07/21/18 at 20:30 Bisacodyl (Dulcolax) 5 mg DAILY PRN PO .CONSTIPATION Last administered on 07/24/18 16:17; Admin Dose 5 MG; Start 07/21/18 at 20:30 Carvedilol (Coreg) 25 mg BID PO Last administered on 08/08/18 08:25; Admin Dose 25 MG; Start 07/21/18 at 23:00 Nifedipine (Procardia Xl) 60 mg DAILY PO Last administered on 08/08/18 08:25; Admin Dose 60 MG; Start 07/22/18 at 09:00 Zinc Sulfate (Zinc Sulfate) 220 mg DAILY PO Last administered on 08/08/18 08:25; Admin Dose 220 MG; Start 07/22/18 at 09:00 Atorvastatin Calcium (Lipitor) 40 mg HS PO Last administered on 08/07/18 20:21; Admin Dose 40 MG; Start 07/21/18 at 23:21 Insulin Aspart (Novolog Insulin Pen) NOVOLOG *MILD* ALGORITHM WITH MEALS BEDTIME SC Last administered on 08/08/18 08:31; Admin Dose 1 UNIT; Start 07/22/18 at 08:00 Miscellaneous Information 1 ea NOTE XX ; Start 07/22/18 at 04:30 Glucose (Glutose) 15 gm Q15M PRN PO DECREASED GLUCOSE; Start 07/22/18 at 04:30 Glucose (Glutose) 22.5 gm Q15M PRN PO DECREASED GLUCOSE; Start 07/22/18 at 04:30 Dextrose (D50w Syringe) 25 ml Q15M PRN IV DECREASED GLUCOSE; Start 07/22/18 at 04:30 Dextrose (D50w Syringe) 50 ml Q15M PRN IV DECREASED GLUCOSE; Start 07/22/18 at 04:30 Glucagon (Glucagen) 1 mg Q15M PRN IM DECREASED GLUCOSE; Start 07/22/18 at 04:30 Glucose (Glutose) 15 gm Q15M PRN BUCCAL DECREASED GLUCOSE; Start 07/22/18 at 04:30 Gentamicin Sulfate (Gentamicin 0.1% Oint) 1 applic HS TOP Last administered on 07/29/18 23:15; Admin Dose 1 APPLIC; Start 07/22/18 at 21:00 Multi-Ingredient Ointment (Eucerin Cream) 1 applic BID TOP Last administered on 08/08/18 08:25; Admin Dose 1 APPLIC; Start 07/22/18 at 22:00 Insulin Glargine (Lantus) 9 units DAILY@2000 SC Last administered on 08/07/18 22:50; Admin Dose 9 UNITS; Start 07/25/18 at 20:00 Cefepime HCl 50 ml @ 100 mls/hr Q12 IVPB Last administered on 08/08/18 09:33; Admin Dose 100 MLS/HR; Start 07/25/18 at 18:00 Tigecycline 50 mg/ Sodium Chloride 100 ml @ 200 mls/hr Q12H IVPB Last administered on 08/08/18 08:24; Admin Dose 200 MLS/HR; Start 07/25/18 at 20:00 Sodium Biphosphate/ Sodium Phosphate (Fleet Enema) 133 ml DAILY PRN [place] CONSTIPATION Last administered on 08/07/18 12:37; Admin Dose 133 ML; Start 07/26/18 at 13:00 Alteplase, Recombinant (Cathflo (Activase)) 2 mg MAY REPEAT X1 PRN CATHETER IF CATHETER REMAINS OCCULUDED Last administered on 08/02/18 22:47; Admin Dose 2 MG; Start 08/02/18 at 21:30 Metronidazole (Flagyl) 500 mg Q8 PO Last administered on 08/08/18 14:04; Admin Dose 500 MG; Start 08/03/18 at 14:30 Docusate Sodium (Colace) 100 mg BID PO Last administered on 08/07/18 20:20; Admin Dose 100 MG; Start 08/04/18 at 21:00 BRET PARIKH MD August 08, 2018 15:47
[2018-08-08] MEDS: INSULIN GLARGINE [LANTus] (100 UNITS/ML) SYG SC SCH (20:00)
[2018-08-08 20:28] VITALS: BP 113/62; PULSE 77; RESP 18
[2018-08-08] MEDS: ATORVASTATIN 40 MG TAB PO SCH (20:51)
[2018-08-08] MEDS: GENTAMICIN 0.1% 15 GM OINT TOP SCH (20:53)
[2018-08-09 02:48] VITALS: BP 121/74; PULSE 79; RESP 18
[2018-08-09] MEDS: metroNIDAZOLE 500 MG TAB PO SCH (05:21)
[2018-08-09 07:25] VITALS: BP 124/76; PULSE 88; RESP 17
[2018-08-09] MEDS: TIGECYCLINE 50 MG in SOD CHLORIDE 0.9% 100 ML IVPB SCH ×2 (08:07→20:08)
[2018-08-09] MEDS: NIFEdipine (XL) 60 MG TAB PO SCH (08:10)
[2018-08-09] MEDS: ZINC SULFATE 220 MG CAP PO SCH (08:10)
[2018-08-09] MEDS: EUCERIN 113 GM CR TOP SCH ×2 (08:11→20:10)
[2018-08-09] MEDS: DOCUSATE SODIUM 100 MG CAP PO SCH ×2 (08:11→20:09)
[2018-08-09] MEDS: INSULIN ASPART [NOVOLOG] 3 ML PEN SC SCH ×4 (08:15→20:10)
[2018-08-09] MEDS: CEFEPIME 2GM/50 ML IVPB SCH (09:27)
--- NOTE | 2018-08-09 10:10 | PN ---
DATE: 08/09/2018 SUBJECTIVE: The patient is stable, no events overnight. No fevers, chills, nausea, or vomiting. OBJECTIVE: VITAL SIGNS: Blood pressure is 124/76, respirations 17, pulse 88, temperature 97.7. HEENT: Head is normocephalic. NECK: Supple. HEART: Regular rate. LUNGS: Show diminished breath sounds at the base. ABDOMEN: Soft, nontender to palpation without rebound or guarding. EXTREMITIES: Negative for clubbing, cyanosis, no edema. DERMATOLOGIC: No rashes. MUSCULOSKELETAL: No joint effusion. NEUROLOGIC: No change in exam. MEDICATIONS: Reviewed. LABORATORY DATA: Reviewed. ASSESSMENT AND PLAN: 1. Nonoliguric acute kidney injury with previously baseline creatinine of 1.3 mg/dL. Etiology of ac [place] kidney injury is secondary to hemodynamics. Renal function is fluctuating. Continue current beena atment plan, supportive care, renally dose all medications. 2. Mild hyperkalemia. Continue to monitor. Continue renal diet. 3. Metabolic acidosis, possibly due to underlying chronic kidney disease. Continue to monitor. If acidosis remains, we will start the patient on Bicitra. 4. Anemia. Continue to monitor hemoglobin and hematocrit levels. 5. Mineral bone disorder, monitor calcium and phosphorus levels. 6. Bilateral gangrenous toe with osteomyelitis, status post amputation. Continue to monitor. 7. Diabetes. Continue current insulin regimen. 8. Sepsis. The patient is completing antibiotic course. 9. History of cerebrovascular accident. Dictated By: PARI TRAN DO NR/NTS Conf#: [id number] DID#: [id number] CC: JOSE ESCOBAR; MELISSA MORRISSEY MD;*EndCC*
--- NOTE | 2018-08-09 13:45 | CONS ---
Assessment/Plan Assessment/Plan Hospital Course (Demo Recall) Patient is alert feels good complaining of abdominal pain after oral Flagyl, she is in no distress Antimicrobials: Tygacil, cefepime, Flagyl Microbiology: Wound culture grew multidrug-resistant Acinetobacter, enterococcus, E. coli, Bacteroides Physical examination: Well-developed well-nourished middle-aged woman who is alert in no distress. Head atraumatic normocephalic sclera nonicteric. Neck is supple. Chest rise symmetrical, breath sounds clear. Heart: S1-S2. Abdomen soft bowel sounds present. Extremities with bilateral lower extremities dressing clean dry and intact Assessment: 1. Bilateral lower extremities gangrene/Osteomyelitis, status post left transmetatarsal amputation/right fifth and fourth digits amputation and third digit debridement 2. Chronic kidney disease, history of hemodialysis 3. Diabetes 4. RUE PICC Plan: Remains stable, change cefepime to Rocephin change Flagyl to IV, continue on current antibiotics for 6 weeks. Wound care per podiatry. Pathology + acute OM R foot Consultation Date/Type/Reason Admit Date/Time July 21, 2018 at 20:31 Initial Consult Date Type of Consult id Date/Time of Note DATE: 08/09/18 TIME: 13:45 Exam/Review of Systems Exam Vitals Vital Signs Date Temp Pulse Resp B/P (MAP) Pulse Ox O2 O2 Flow FiO2 Time Delivery Rate 08/09/18 97.7 88 17 124/76 100 07:25 (92) 08/08/18 Room Air 07:40 Intake and Output 08/08/18 08/08/18 08/09/18 1515:00 23:00 07:00 IntakeIntake Total 870 ml 770 ml 600 ml OutputOutput Total 1 ml BalanceBalance 870 ml 770 ml 599 ml Results Result Diagram: 08/09/18 0522 Results 24hrs Laboratory Tests Test 08/08/18 17:56 08/08/18 20:50 08/09/18 05:22 08/09/18 08:07 Bedside Glucose 82 74 151 Sodium Level 140 Potassium Level 5.3 H Chloride Level 116 H Carbon Dioxide Level 20 L Anion Gap 4 L Blood Urea Nitrogen 41 H Creatinine 1.06 H Est Glomerular 56 L Filtrat Rate mL/min Glucose Level 112 Calcium Level 7.8 L Phosphorus Level 3.7 Magnesium Level 1.8 Test 08/09/18 12:40 Bedside Glucose 160 Medications Medication Current Medications IV Flush (NS 3 ml) 3 ml PER PROTOCOL IV ; Start 07/21/18 at 20:30 Ondansetron HCl (Zofran Inj) 4 mg Q6H PRN IV NAUSEA/VOMITING Last administered on 08/07/18 19:42; Admin Dose 4 MG; Start 07/21/18 at 20:30 Acetaminophen (Tylenol Tab) 650 mg Q6H PRN PO .PAIN 1-3 OR TEMP Last administered on 08/08/18 14:05; Admin Dose 650 MG; Start 07/21/18 at 20:30 Morphine Sulfate (morphine) 2 mg Q4H PRN IV .SEVERE PAIN 7-10; Start 07/21/18 at 20:30 Bisacodyl (Dulcolax) 5 mg DAILY PRN PO .CONSTIPATION Last administered on 07/24/18 16:17; Admin Dose 5 MG; Start 07/21/18 at 20:30 Carvedilol (Coreg) 25 mg BID PO Last administered on 08/09/18 08:11; Admin Dose 25 MG; Start 07/21/18 at 23:00 Nifedipine (Procardia Xl) 60 mg DAILY PO Last administered on 08/09/18 08:10; Admin Dose 60 MG; Start 07/22/18 at 09:00 Zinc Sulfate (Zinc Sulfate) 220 mg DAILY PO Last administered on 08/09/18 08:10; Admin Dose 220 MG; Start 07/22/18 at 09:00 Atorvastatin Calcium (Lipitor) 40 mg HS PO Last administered on 08/08/18 20:5 1; Admin Dose 40 MG; Start 07/21/18 at 23:21 Insulin Aspart (Novolog Insulin Pen) NOVOLOG *MILD* ALGORITHM WITH MEALS BEDTIME SC Last administered on 08/09/18 12:42; Admin Dose 1 UNIT; Start 07/22/18 at 08:00 Miscellaneous Information 1 ea NOTE XX ; Start 07/22/18 at 04:30 Glucose (Glutose) 15 gm Q15M PRN PO DECREASED GLUCOSE; Start 07/22/18 at 04:30 Glucose (Glutose) 22.5 gm Q15M PRN PO DECREASED GLUCOSE; Start 07/22/18 at 04:30 Dextrose (D50w Syringe) 25 ml Q15M PRN IV DECREASED GLUCOSE; Start 07/22/18 at 04:30 Dextrose (D50w Syringe) 50 ml Q15M PRN IV DECREASED GLUCOSE; Start 07/22/18 at 04:30 Glucagon (Glucagen) 1 mg Q15M PRN IM DECREASED GLUCOSE; Start 07/22/18 at 04:30 Glucose (Glutose) 15 gm Q15M PRN BUCCAL DECREASED GLUCOSE; Start 07/22/18 at 04:30 Gentamicin Sulfate (Gentamicin 0.1% Oint) 1 applic HS TOP Last administered on 07/29/18 23:15; Admin Dose 1 APPLIC; Start 07/22/18 at 21:00 Multi-Ingredient Ointment (Eucerin Cream) 1 applic BID TOP Last administered on 08/09/18 08:11; Admin Dose 1 APPLIC; Start 07/22/18 at 22:00 Insulin Glargine (Lantus) 9 units DAILY@2000 SC Last administered on 08/07/18 22:50; Admin Dose 9 UNITS; Start 07/25/18 at 20:00 Cefepime HCl 50 ml @ 100 mls/hr Q12 IVPB Last administered on 08/09/18 09:27; Admin Dose 100 MLS/HR; Start 07/25/18 at 18:00 Tigecycline 50 mg/ Sodium Chloride 100 ml @ 200 mls/hr Q12H IVPB Last administered on 08/09/18 08:07; Admin Dose 200 MLS/HR; Start 07/25/18 at 20:00 Sodium Biphosphate/ Sodium Phosphate (Fleet Enema) 133 ml DAILY PRN [place] CONSTIPATION Last administered on 08/07/18at 12:37; Admin Dose 133 ML; Start 07/26/18 at 13:00 Alteplase, Recombinant (Cathflo (Activase)) 2 mg MAY REPEAT X1 PRN CATHETER IF CATHETER REMAINS OCCULUDED Last administered on 08/02/18 22:47; Admin Dose 2 MG; Start 08/02/18 at 21:30 Metronidazole (Flagyl) 500 mg Q8 PO Last administered on 08/09/18 05:21; Admin Dose 500 MG; Start 08/03/18 at 14:30 Docusate Sodium (Colace) 100 mg BID PO Last administered on 08/07/18at 20:20; Admin Dose 100 MG; Start 08/04/18 at 21:00 SEBASTIAN BARRETO NP August 09, 2018 13:45
[2018-08-09] MEDS: metroNIDAZOLE 500 MG/NS (PMX) 100 ML IVPB SCH ×2 (14:31→21:23)
[2018-08-09] MEDS: ACETAMINOPHEN 325 MG TAB PO PRN (14:32)
[2018-08-09 15:24] VITALS: BP 120/64; PULSE 74; RESP 19
--- NOTE | 2018-08-09 16:08 | PN ---
Date/Time of Note Date/Time of Note DATE: 08/09/18 TIME: 16:00 Assessment/Plan VTE Prophylaxis Risk score (from Nsg)>0 risk: 7 SCD applied (from Nsg): Yes Pharmacological prophylaxis: other Lines/Catheters IV Catheter Type (from Nrsg): PICC Line Central line still needed: Yes Urinary Cath still in place: No Assessment/Plan Hospital Course S: Patient had no acute events overnight, seen by renal and ID teams earlier today. O: VS-see below PE: Well appearing in NAD AOx3 RRR CTAB Gangrene of index finger and toes A/P: 48 yo female with h/o critical illness for which received vasopressors and developed digital ischemia who recovered but developed gangrene of toes and finger who was referred to hospital for evaluation of leukocytosis. Found to have OM of feet as well. # Bilateral lower extremities gangrene/osteomyelitis- status post left transmetatarsal amputation/right fifth and fourth digits amputation and third digit debridement. Wound culture grew multidrug-resistant Acinetobacter, enterococcus, E. coli, Bacteroides -Continue Abx per ID -presently today changed to IV Rocephin, IV Flagyl, and still on IV tigecycline - perioperative management per podiatry, wound vac for 2 months needed, and antibiotics for 6 weeks will be needed DMII: Sugars are stable, A1c was 6.4. -Monitor, sliding scale insulin hypertension: Stable - continue nifedipine, coreg Dispo: Declined by ARU apparently today. Likely ready for dc home once final da te and duration of antibiotics has been determined, with HH, IV abx and wound vacs vs acute rehab Result Diagram: 08/09/18521 Results 24hrs Laboratory Tests Test 08/08/18 17:56 08/08/18 20:50 08/09/18 05:22 08/09/18 08:07 Bedside Glucose 82 74 151 Sodium Level 140 Potassium Level 5.3 H Chloride Level 116 H Carbon Dioxide Level 20 L Anion Gap 4 L Blood Urea Nitrogen 41 H Creatinine 1.06 H Est Glomerular 56 L Filtrat Rate mL/min Glucose Level 112 Calcium Level 7.8 L Phosphorus Level 3.7 Magnesium Level 1.8 Test 08/09/18 12:40 Bedside Glucose 160 Exam/Review of Systems Exam Vitals Vital Signs Date Temp Pulse Resp B/P (MAP) Pulse Ox O2 O2 Flow FiO2 Time Delivery Rate 08/09/18 98.3 74 19 120/64 100 15:24 (82) 08/08/18 Room Air 07:40 Intake and Output 08/08/18 08/08/18 08/09/18 1515:00 23:00 07:00 IntakeIntake Total 870 ml 770 ml 600 ml OutputOutput Total 1 ml BalanceBalance 870 ml 770 ml 599 ml Results Results 24hrs Laboratory Tests Test 08/08/18 17:56 08/08/18 20:50 08/09/18 05:22 08/09/18 08:07 Bedside Glucose 82 74 151 Sodium Level 140 Potassium Level 5.3 H Chloride Level 116 H Carbon Dioxide Level 20 L Anion Gap 4 L Blood Urea Nitrogen 41 H Creatinine 1.06 H Est Glomerular 56 L Filtrat Rate mL/min Glucose Level 112 Calcium Level 7.8 L Phosphorus Level 3.7 Magnesium Level 1.8 Test 08/09/18 12:40 Bedside Glucose 160 Medications Medication Current Medications IV Flush (NS 3 ml) 3 ml PER PROTOCOL IV ; Start 07/21/18 at 20:30 Ondansetron HCl (Zofran Inj) 4 mg Q6H PRN IV NAUSEA/VOMITING Last administered on 08/07/18 19:42; Admin Dose 4 MG; Start 07/21/18 at 20:30 Acetaminophen (Tylenol Tab) 650 mg Q6H PRN PO .PAIN 1-3 OR TEMP Last administered on 08/09/18 14:32; Admin Dose 650 MG; Start 07/21/18 at 20:30 Morphine Sulfate (morphine) 2 mg Q4H PRN IV .SEVERE PAIN 7-10; Start 07/21/18 at 20:30 Bisacodyl (Dulcolax) 5 mg DAILY PRN PO .CONSTIPATION Last administered on 07/24/18 16:17; Admin Dose 5 MG; Start 07/21/18 at 20:30 Carvedilol (Coreg) 25 mg BID PO Last administered on 08/09/18 08:11; Admin Dose 25 MG; Start 07/21/18 at 23:00 Nifedipine (Procardia Xl) 60 mg DAILY PO Last administered on 08/09/18 08:10; Admin Dose 60 MG; Start 07/22/18 at 09:00 Zinc Sulfate (Zinc Sulfate) 220 mg DAILY PO Last administered on 08/09/18 08:10; Admin Dose 220 MG; Start 07/22/18 at 09:00 Atorvastatin Calcium (Lipitor) 40 mg HS PO Last administered on 08/08/18 20:51; Admin Dose 40 MG; Start 07/21/18 at 23:21 Insulin Aspart (Novolog Insulin Pen) NOVOLOG *MILD* ALGORITHM WITH MEALS BEDTIME SC Last administered on 08/09/18 12:42; Admin Dose 1 UNIT; Start 07/22/18 at 08:00 Miscellaneous Information 1 ea NOTE XX ; Start 07/22/18 at 04:30 Glucose (Glutose) 15 gm Q15M PRN PO DECREASED GLUCOSE; Start 07/22/18 at 04:30 Glucose (Glutose) 22.5 gm Q15M PRN PO DECREASED GLUCOSE; Start 07/22/18 at 04:30 Dextrose (D50w Syringe) 25 ml Q15M PRN IV DECREASED GLUCOSE; Start 07/22/18 at 04:30 Dextrose (D50w Syringe) 50 ml Q15M PRN IV DECREASED GLUCOSE; Start 07/22/18 at 04:30 Glucagon (Glucagen) 1 mg Q15M PRN IM DECREASED GLUCOSE; Start 07/22/18 at 04:30 Glucose (Glutose) 15 gm Q15M PRN BUCCAL DECREASED GLUCOSE; Start 07/22/18 at 04:30 Gentamicin Sulfate (Gentamicin 0.1% Oint) 1 applic HS TOP Last administered on 07/29/18 23:15; Admin Dose 1 APPLIC; Start 07/22/18 at 21:00 Multi-Ingredient Ointment (Eucerin Cream) 1 applic BID TOP Last administered on 08/09/18 08:11; Admin Dose 1 APPLIC; Start 07/22/18 at 22:00 Insulin Glargine (Lantus) 9 units DAILY@2000 SC Last administered on 08/07/18 22:50; Admin Dose 9 UNITS; Start 07/25/18 at 20:00 Tigecycline 50 mg/ Sodium Chloride 100 ml @ 200 mls/hr Q12H IVPB Last administered on 08/09/18 08:07; Admin Dose 200 MLS/HR; Start 07/25/18 at 20:00 Sodium Biphosphate/ Sodium Phosphate (Fleet Enema) 133 ml DAILY PRN DE CONSTIPATION Last administered on 5/18/19at 12:37; Admin Dose 133 ML; Start 07/26/18 at 13:00 Alteplase, Recombinant (Cathflo (Activase)) 2 mg MAY REPEAT X1 PRN CATHETER IF CATHETER REMAINS OCCULUDED Last administered on 08/02/18at 22:47; Admin Dose 2 MG; Start 08/02/18 at 21:30 Docusate Sodium (Colace) 100 mg BID PO Last administered on 08/07/18at 20:20; Admin Dose 100 MG; Start 08/04/18 at 21:00 Metronidazole 100 ml @ 100 mls/hr Q8 IVPB Last administered on 08/09/18at 14:31; Admin Dose 100 MLS/HR; Start 08/09/18 at 14:00 Ceftriaxone Sodium 50 ml @ 100 mls/hr Q24H IVPB ; Start 08/09/18 at 14:00 JOSE ESCOBAR August 09, 2018 16:08
[2018-08-09] MEDS: CEFTRIAXONE 2 GM/50 ML (PMX) 50 ML IVPB SCH (16:25)
[2018-08-09 19:59] VITALS: BP 118/64; PULSE 77; RESP 1; RESP 18
[2018-08-09] MEDS: INSULIN GLARGINE [LANTus] (100 UNITS/ML) SYG SC SCH (20:00)
[2018-08-09] MEDS: ATORVASTATIN 40 MG TAB PO SCH (20:09)
[2018-08-09] MEDS: GENTAMICIN 0.1% 15 GM OINT TOP SCH (20:10)
[2018-08-10 01:21] VITALS: BP 121/67; PULSE 76; RESP 18
[2018-08-10] MEDS: metroNIDAZOLE 500 MG/NS (PMX) 100 ML IVPB SCH ×3 (05:46→22:28)
[2018-08-10 07:53] VITALS: BP 138/69; PULSE 84; RESP 20
[2018-08-10] MEDS: INSULIN ASPART [NOVOLOG] 3 ML PEN SC SCH ×4 (08:00→21:19)
[2018-08-10] MEDS: TIGECYCLINE 50 MG in SOD CHLORIDE 0.9% 100 ML IVPB SCH ×2 (08:18→21:10)
[2018-08-10] MEDS: DOCUSATE SODIUM 100 MG CAP PO SCH ×2 (08:19→21:00)
[2018-08-10] MEDS: ZINC SULFATE 220 MG CAP PO SCH (08:19)
[2018-08-10] MEDS: NIFEdipine (XL) 60 MG TAB PO SCH (08:20)
[2018-08-10] MEDS: EUCERIN 113 GM CR TOP SCH ×2 (08:21→21:22)
--- NOTE | 2018-08-10 08:52 | PN ---
DATE: 08/10/2018 SUBJECTIVE: The patient is stable, no events overnight. OBJECTIVE: VITAL SIGNS: Blood pressure is 138/69, pulse 84, respirations 20, temperature 97.4. HEENT: Head is normocephalic. NECK: Supple. HEART: Regular rate. LUNGS: Show diminished breath sounds at the base. ABDOMEN: Soft, nontender to palpation without rebound or guarding. EXTREMITIES: Negative for clubbing, cyanosis, no edema. DERMATOLOGIC: No rashes. MUSCULOSKELETAL: No joint effusion. NEUROLOGIC: No change in exam. MEDICATIONS: Reviewed. LABORATORY DATA: Reviewed. ASSESSMENT AND PLAN: 1. Nonoliguric acute kidney injury with previous baseline creatinine of around 1.3 mg/dL. Etiology of acute kidney injury is secondary to hemodynamics. Renal function is stable. Continue current beena atment plans, supportive care, renally dose all medications. 2. Mild hyperkalemia, resolved. 3. Metabolic acidosis likely secondary to chronic kidney disease. Continue to monitor. We may cons ider starting the patient on Bicitra. 4. Anemia. Continue to monitor hemoglobin and hematocrit levels. 5. Mineral bone disorder, monitor calcium and phosphorus levels. 6. Bilateral gangrenous toe with osteomyelitis, status post amputation. Continue to monitor. 7. Diabetes. Continue current insulin regimen. 8. Sepsis. The patient has completed antibiotic course. 9. History of cerebrovascular accident. Dictated By: PARI TRAN DO NR/NTS Conf#: [id number] DID#: [id number] CC: JOSE ESCOBAR; MELISSA MORRISSEY MD;*EndCC*
[2018-08-10 12:57] VITALS: BP 138/76; PULSE 80; RESP 20
[2018-08-10] MEDS: CEFTRIAXONE 2 GM/50 ML (PMX) 50 ML IVPB SCH (13:40)
--- NOTE | 2018-08-10 15:59 | PN ---
Date/Time of Note Date/Time of Note DATE: 08/10/18 TIME: 15:56 Assessment/Plan VTE Prophylaxis Risk score (from Nsg)>0 risk: 4 SCD applied (from Nsg): Yes Pharmacological prophylaxis: other Lines/Catheters IV Catheter Type (from Nrsg): PICC Line Central line still needed: Yes Urinary Cath still in place: No Assessment/Plan Hospital Course S: Patient seen by PT and renal teams earlier today. No acute events overnight. O: VS-see below PE: Well appearing in NAD AOx3 RRR CTAB NT, ND, soft no focal deficits A/P: 48 yo female with h/o critical illness for which received vasopressors and developed digital ischemia who recovered but developed gangrene of toes and finger who was referred to hospital for evaluation of leukocytosis. Found to have OM of feet as well. # Bilateral lower extremities gangrene/osteomyelitis- status post left transmetatarsal amputation/right fifth and fourth digits amputation and third digit debridement. Wound culture grew multidrug-resistant Acinetobacter, enterococcus, E. coli, Bacteroides -Continue Abx per ID - IV Rocephin, IV Flagyl, and still on IV tigecycline - till 09/10/18 - perioperative management per podiatry, will discuss with podiatry team about the length of time needed for the wound vac, it has already been delivered to the patient's room for home use, but again patient is presently off of this right now DMII: Sugars are stable, A1c was 6.4. -Monitor, sliding scale insulin hypertension: Stable - continue nifedipine, coreg Dispo: Likely ready for dc home once final date and duration of antibiotics has been determined, with HH, IV abx and wound vacs set up for home use first Result Diagram: 08/10/1852708/10/18527 Results 24hrs Laboratory Tests Test 08/09/18 17:30 08/09/18 20:06 08/10/18 05:28 08/10/18 08:16 Bedside Glucose 77 96 91 White Blood Count 10.9 #H Red Blood Count 3.37 L Hemoglobin 9.1 L Hematocrit 28.8 L Mean Corpuscular 85.5 Volume Mean Corpuscular 27.0 L Hemoglobin Mean Corpuscular 31.6 L Hemoglobin Concent Red Cell 15.3 H Distribution Width Platelet Count 309 Mean Platelet Volume 11.1 H Immature 0.800 H Granulocytes % Neutrophils % 65.7 Lymphocytes % 18.0 Monocytes % 7.6 Eosinophils % 7.0 Basophils % 0.9 Nucleated Red Blood 0.0 Cells % Immature 0.090 H Granulocytes # Neutrophils # 7.1 Lymphocytes # 2.0 Monocytes # 0.8 Eosinophils # 0.8 H Basophils # 0.1 Nucleated Red Blood 0.0 Cells # Sodium Level 142 Potassium Level 3.7 Chloride Level 118 H Carbon Dioxide Level 19 L Anion Gap 5 Blood Urea Nitrogen 32 H Creatinine 1.11 H Est Glomerular 53 L Filtrat Rate mL/min Glucose Level 102 Calcium Level 8.2 L Phosphorus Level 3.7 Magnesium Level 1.9 Test 08/10/18 13:09 Bedside Glucose 161 Exam/Review of Systems Exam Vitals Vital Signs Date Temp Pulse Resp B/P (MAP) Pulse Ox O2 O2 Flow FiO2 Time Delivery Rate 08/10/18 98.5 80 20 138/76 100 12:57 (96) 08/08/18 Room Air 07:40 Intake and Output 08/09/18 08/09/18 08/10/18 1515:00 23:00 07:00 IntakeIntake Total 1150 ml 730 ml 650 ml BalanceBalance 1150 ml 730 ml 650 ml Results Results 24hrs Laboratory Tests Test 08/09/18 17:30 08/09/18 20:06 08/10/18 05:28 08/10/18 08:16 Bedside Glucose 77 96 91 White Blood Count 10.9 #H Red Blood Count 3.37 L Hemoglobin 9.1 L Hematocrit 28.8 L Mean Corpuscular 85.5 Volume Mean Corpuscular 27.0 L Hemoglobin Mean Corpuscular 31.6 L Hemoglobin Concent Red Cell 15.3 H Distribution Width Platelet Count 309 Mean Platelet Volume 11.1 H Immature 0.800 H Granulocytes % Neutrophils % 65.7 Lymphocytes % 18.0 Monocytes % 7.6 Eosinophils % 7.0 Basophils % 0.9 Nucleated Red Blood 0.0 Cells % Immature 0.090 H Granulocytes # Neutrophils # 7.1 Lymphocytes # 2.0 Monocytes # 0.8 Eosinophils # 0.8 H Basophils # 0.1 Nucleated Red Blood 0.0 Cells # Sodium Level 142 Potassium Level 3.7 Chloride Level 118 H Carbon Dioxide Level 19 L Anion Gap 5 Blood Urea Nitrogen 32 H Creatinine 1.11 H Est Glomerular 53 L Filtrat Rate mL/min Glucose Level 102 Calcium Level 8.2 L Phosphorus Level 3.7 Magnesium Level 1.9 Test 08/10/18 13:09 Bedside Glucose 161 Medications Medication Current Medications IV Flush (NS 3 ml) 3 ml PER PROTOCOL IV ; Start 07/21/18 at 20:30 Ondansetron HCl (Zofran Inj) 4 mg Q6H PRN IV NAUSEA/VOMITING Last administered on 08/07/18 19:42; Admin Dose 4 MG; Start 07/21/18 at 20:30 Acetaminophen (Tylenol Tab) 650 mg Q6H PRN PO .PAIN 1-3 OR TEMP Last administered on 08/09/18 14:32; Admin Dose 650 MG; Start 07/21/18 at 20:30 Morphine Sulfate (morphine) 2 mg Q4H PRN IV .SEVERE PAIN 7-10; Start 07/21/18 at 20:30 Bisacodyl (Dulcolax) 5 mg DAILY PRN PO .CONSTIPATION Last administered on 07/24/18 16:17; Admin Dose 5 MG; Start 07/21/18 at 20:30 Carvedilol (Coreg) 25 mg BID PO Last administered on 08/10/18 08:20; Admin Dose 25 MG; Start 07/21/18 at 23:00 Nifedipine (Procardia Xl) 60 mg DAILY PO Last administered on 08/10/18 08:20; Admin Dose 60 MG; Start 07/22/18 at 09:00 Zinc Sulfate (Zinc Sulfate) 220 mg DAILY PO Last administered on 08/10/18 08:19; Admin Dose 220 MG; Start 07/22/18 at 09:00 Atorvastatin Calcium (Lipitor) 40 mg HS PO Last administered on 08/09/18 20:09; Admin Dose 40 MG; Start 07/21/18 at 23:21 Insulin Aspart (Novolog Insulin Pen) NOVOLOG *MILD* ALGORITHM WITH MEALS BEDTIME SC Last administered on 08/10/18 13:37; Admin Dose 1 UNIT; Start 07/22/18 at 08:00 Miscellaneous Information 1 ea NOTE XX ; Start 07/22/18 at 04:30 Glucose (Glutose) 15 gm Q15M PRN PO DECREASED GLUCOSE; Start 07/22/18 at 04:30 Glucose (Glutose) 22.5 gm Q15M PRN PO DECREASED GLUCOSE; Start 07/22/18 at 04:30 Dextrose (D50w Syringe) 25 ml Q15M PRN IV DECREASED GLUCOSE; Start 07/22/18 at 04:30 Dextrose (D50w Syringe) 50 ml Q15M PRN IV DECREASED GLUCOSE; Start 07/22/18 at 04:30 Glucagon (Glucagen) 1 mg Q15M PRN IM DECREASED GLUCOSE; Start 07/22/18 at 04:30 Glucose (Glutose) 15 gm Q15M PRN BUCCAL DECREASED GLUCOSE; Start 07/22/18 at 04:30 Gentamicin Sulfate (Gentamicin 0.1% Oint) 1 applic HS TOP Last administered on 07/29/18at 23:15; Admin Dose 1 APPLIC; Start 07/22/18 at 21:00 Multi-Ingredient Ointment (Eucerin Cream) 1 applic BID TOP Last administered on 08/10/18 08:21; Admin Dose 1 APPLIC; Start 07/22/18 at 22:00 Insulin Glargine (Lantus) 9 units DAILY@2000 SC Last administered on 08/07/18at 22:50; Admin Dose 9 UNITS; Start 07/25/18 at 20:00 Tigecycline 50 mg/ Sodium Chloride 100 ml @ 200 mls/hr Q12H IVPB Last administered on 08/10/18 08:18; Admin Dose 200 MLS/HR; Start 07/25/18 at 20:00 Sodium Biphosphate/ Sodium Phosphate (Fleet Enema) 133 ml DAILY PRN [place] CONSTIPATION Last administered on 08/07/18at 12:37; Admin Dose 133 ML; Start 07/26/18 at 13:00 Alteplase, Recombinant (Cathflo (Activase)) 2 mg MAY REPEAT X1 PRN CATHETER IF CATHETER REMAINS OCCULUDED Last administered on 08/02/18at 22:47; Admin Dose 2 MG; Start 08/02/18 at 21:30 Docusate Sodium (Colace) 100 mg BID PO Last administered on 08/07/18 20:20; Admin Dose 100 MG; Start 08/04/18 at 21:00 Metronidazole 100 ml @ 100 mls/hr Q8 IVPB Last administered on 08/10/18at 15:41; Admin Dose 100 MLS/HR; Start 08/09/18 at 14:00 Ceftriaxone Sodium 50 ml @ 100 mls/hr Q24H IVPB Last administered on 08/10/18at 13:40; Admin Dose 100 MLS/HR; Start 08/09/18 at 14:00 JOSE ESCOBAR August 10, 2018 15:59
[2018-08-10 20:00] VITALS: BP 121/65; PULSE 84; RESP 20
[2018-08-10] MEDS: DAKINS 0.0125%(1/40) 473 ML SOLUTION TP SCH (21:00)
[2018-08-10] MEDS: MUPIROCIN 2% 22 GM OINT TOP SCH (21:00)
[2018-08-10] MEDS: GENTAMICIN 0.1% 15 GM OINT TOP SCH (21:00)
[2018-08-10] MEDS: ATORVASTATIN 40 MG TAB PO SCH (21:10)
[2018-08-10] MEDS: INSULIN GLARGINE [LANTus] (100 UNITS/ML) SYG SC SCH (21:20)
[2018-08-11 02:00] VITALS: BP 133/71; PULSE 75; RESP 18
[2018-08-11] MEDS: metroNIDAZOLE 500 MG/NS (PMX) 100 ML IVPB SCH ×3 (05:53→22:02)
[2018-08-11] MEDS: INSULIN ASPART [NOVOLOG] 3 ML PEN SC SCH ×4 (07:58→20:59)
[2018-08-11] MEDS: TIGECYCLINE 50 MG in SOD CHLORIDE 0.9% 100 ML IVPB SCH ×2 (08:02→21:00)
[2018-08-11 08:34] VITALS: BP 127/77; PULSE 76; RESP 18
--- NOTE | 2018-08-11 08:56 | PN ---
DATE: 08/11/2018 SUBJECTIVE: The patient is stable. No events overnight. OBJECTIVE: VITAL SIGNS: Blood pressure is 133/71, respirations 18, pulse 75, temperature 98.0. HEENT: Head is normocephalic. NECK: Supple. HEART: Regular rate. LUNGS: Show diminished breath sounds at the base. ABDOMEN: Soft, nontender to palpation without rebound or guarding. EXTREMITIES: Negative for clubbing, cyanosis, no edema. DERMATOLOGIC: No rashes. MUSCULOSKELETAL: No joint effusion. NEUROLOGIC: No change in exam. MEDICATIONS: Reviewed. LABORATORY DATA: Reviewed. ASSESSMENT AND PLAN: 1. Nonoliguric acute kidney injury with previous baseline creatinine around 1.3 mg/dL. Etiology of acute kidney injury is secondary to hemodynamics. Renal function is stable. Continue current treatm ent plan, supportive care and renally dose all medications. 2. Mild hyperkalemia, resolved. 3. Metabolic acidosis likely due to chronic kidney disease. Continue to monitor. Consider restarti ng Bicitra. 4. Anemia. Monitor hemoglobin and hematocrit levels. 5. Mineral bone disorder. Monitor calcium and phosphorus levels. 6. Bilateral gangrenous toe with osteomyelitis, status post amputation. 7. Diabetes. Continue current insulin regimen. 8. Access. The patient is completing antibiotic course. 9. History of cerebrovascular accident. Dictated By: PARI AMAYA/NTS Conf#: [id number] DID#: [id number] CC: JOSE ESCOBAR; MELISSA MORRISSEY MD;*EndCC*
[2018-08-11] MEDS: CITRIC ACID/NA CITRATE 30 ML CUP PO SCH ×2 (09:43→20:59)
[2018-08-11] MEDS: DOCUSATE SODIUM 100 MG CAP PO SCH ×2 (09:43→20:59)
[2018-08-11] MEDS: ZINC SULFATE 220 MG CAP PO SCH (09:44)
[2018-08-11] MEDS: NIFEdipine (XL) 60 MG TAB PO SCH (09:44)
[2018-08-11] MEDS: MUPIROCIN 2% 22 GM OINT TOP SCH ×2 (09:45→21:00)
[2018-08-11] MEDS: EUCERIN 113 GM CR TOP SCH ×2 (09:45→21:03)
[2018-08-11] MEDS: DAKINS 0.0125%(1/40) 473 ML SOLUTION TP SCH ×2 (09:46→21:00)
--- NOTE | 2018-08-11 12:06 | PN ---
Date/Time of Note Date/Time of Note DATE: 08/11/18 TIME: 12:03 Assessment/Plan VTE Prophylaxis Risk score (from Nsg)>0 risk: 4 SCD applied (from Nsg): Yes Pharmacological prophylaxis: other Lines/Catheters IV Catheter Type (from Nrsg): PICC Line Central line still needed: Yes Urinary Cath still in place: No Assessment/Plan Hospital Course S: Patient had no acute events overnight. O: VS-see below PE: Well appearing in NAD AOx3 RRR CTAB NT, ND, soft no focal deficits A/P: 48 yo female with h/o critical illness for which received vasopressors and developed digital ischemia who recovered but developed gangrene of toes and finger who was referred to hospital for evaluation of leukocytosis. Found to have OM of feet as well. # Bilateral lower extremities gangrene/osteomyelitis- status post left transmetatarsal amputation/right fifth and fourth digits amputation and third digit debridement. Wound culture grew multidrug-resistant Acinetobacter, entero coccus, E. coli, Bacteroides -Continue Abx per ID - IV Rocephin, IV Flagyl, and still on IV tigecycline - Per ID team all till 09/10/18 - perioperative management per podiatry, per discussion with podiatry team - patient will have lincoln removed today and wound VAC likely placed back on today; at home will need to use wound VAC for 3 months total and get changes performed 3 times a week. DMII: Sugars are stable, A1c was 6.4. -Monitor, sliding scale insulin hypertension: Stable - continue nifedipine, coreg Dispo: Likely ready for dc home with HH, IV abx and wound vacs set up for home use first -podiatry team as stated above will likely replace wound VAC today, and bottle caser is working on setting up the home health and IV antibiotics presently. Result Diagram: 08/11/18 0454 08/11/18 0454 Results 24hrs Laboratory Tests Test 08/10/18 13:09 08/10/18 17:31 08/10/18 21:06 08/11/18 02:12 Bedside Glucose 161 113 270 H 64 L Test 08/11/18 02:43 08/11/18 04:54 08/11/18 07:56 Bedside Glucose 152 93 White Blood Count 9.3 Red Blood Count 3.20 L Hemoglobin 8.7 L Hematocrit 27.4 L Mean Corpuscular 85.6 Volume Mean Corpuscular 27.2 L Hemoglobin Mean Corpuscular 31.8 L Hemoglobin Concent Red Cell 15.8 H Distribution Width Platelet Count 264 Mean Platelet Volume 11.4 H Immature 0.800 H Granulocytes % Neutrophils % 67.7 Lymphocytes % 18.5 Monocytes % 6.0 Eosinophils % 5.8 Basophils % 1.2 Nucleated Red Blood 0.0 Cells % Immature 0.070 H Granulocytes # Neutrophils # 6.3 Lymphocytes # 1.7 Monocytes # 0.6 Eosinophils # 0.5 Basophils # 0.1 Nucleated Red Blood 0.0 Cells # Sodium Level 140 Potassium Level 3.7 Chloride Level 115 H Carbon Dioxide Level 20 L Anion Gap 5 Blood Urea Nitrogen 25 H Creatinine 0.96 Est Glomerular > 60 Filtrat Rate mL/min Glucose Level 167 Calcium Level 8.2 L Phosphorus Level 3.7 Magnesium Level 1.8 Exam/Review of Systems Exam Vitals Vital Signs Date Temp Pulse Resp B/P (MAP) Pulse Ox O2 O2 Flow FiO2 Time Delivery Rate 08/11/18 98.0 76 18 127/77 100 08:34 (94) 08/08/18 Room Air 07:40 Intake and Output 08/10/18 08/10/18 08/11/18 1515:00 23:00 07:00 IntakeIntake Total 1750 ml 820 ml 440 ml OutputOutput Total 2 ml BalanceBalance 1750 ml 820 ml 438 ml Results Results 24hrs Laboratory Tests Test 08/10/18 13:09 08/10/18 17:31 08/10/18 21:06 08/11/18 02:12 Bedside Glucose 161 113 270 H 64 L Test 08/11/18 02:43 08/11/18 04:54 08/11/18 07:56 Bedside Glucose 152 93 White Blood Count 9.3 Red Blood Count 3.20 L Hemoglobin 8.7 L Hematocrit 27.4 L Mean Corpuscular 85.6 Volume Mean Corpuscular 27.2 L Hemoglobin Mean Corpuscular 31.8 L Hemoglobin Concent Red Cell 15.8 H Distribution Width Platelet Count 264 Mean Platelet Volume 11.4 H Immature 0.800 H Granulocytes % Neutrophils % 67.7 Lymphocytes % 18.5 Monocytes % 6.0 Eosinophils % 5.8 Basophils % 1.2 Nucleated Red Blood 0.0 Cells % Immature 0.070 H Granulocytes # Neutrophils # 6.3 Lymphocytes # 1.7 Monocytes # 0.6 Eosinophils # 0.5 Basophils # 0.1 Nucleated Red Blood 0.0 Cells # Sodium Level 140 Potassium Level 3.7 Chloride Level 115 H Carbon Dioxide Level 20 L Anion Gap 5 Blood Urea Nitrogen 25 H Creatinine 0.96 Est Glomerular > 60 Filtrat Rate mL/min Glucose Level 167 Calcium Level 8.2 L Phosphorus Level 3.7 Magnesium Level 1.8 Medications Medication Current Medications IV Flush (NS 3 ml) 3 ml PER PROTOCOL IV ; Start 07/21/18 at 20:30 Ondansetron HCl (Zofran Inj) 4 mg Q6H PRN IV NAUSEA/VOMITING Last administered on 08/07/18 19:42; Admin Dose 4 MG; Start 07/21/18 at 20:30 Acetaminophen (Tylenol Tab) 650 mg Q6H PRN PO .PAIN 1-3 OR TEMP Last administered on 08/09/18 14:32; Admin Dose 650 MG; Start 07/21/18 at 20:30 Morphine Sulfate (morphine) 2 mg Q4H PRN IV .SEVERE PAIN 7-10; Start 07/21/18 at 20:30 Bisacodyl (Dulcolax) 5 mg DAILY PRN PO .CONSTIPATION Last administered on 07/24/18 16:17; Admin Dose 5 MG; Start 07/21/18 at 20:30 Carvedilol (Coreg) 25 mg BID PO Last administered on 08/11/18 09:44; Admin Dose 25 MG; Start 07/21/18 at 23:00 Nifedipine (Procardia Xl) 60 mg DAILY PO Last administered on 08/11/18 09:44; Admin Dose 60 MG; Start 07/22/18 at 09:00 Zinc Sulfate (Zinc Sulfate) 220 mg DAILY PO Last administered on 08/11/18 09:44; Admin Dose 220 MG; Start 07/22/18 at 09:00 Atorvastatin Calcium (Lipitor) 40 mg HS PO Last administered on 08/10/18 21:10; Admin Dose 40 MG; Start 07/21/18 at 23:21 Insulin Aspart (Novolog Insulin Pen) NOVOLOG *MILD* ALGORITHM WITH MEALS BEDTIM E SC Last administered on 08/10/18 21:19; Admin Dose 3 UNIT; Start 07/22/18 at 08:00 Miscellaneous Information 1 ea NOTE XX ; Start 07/22/18 at 04:30 Glucose (Glutose) 15 gm Q15M PRN PO DECREASED GLUCOSE; Start 07/22/18 at 04:30 Glucose (Glutose) 22.5 gm Q15M PRN PO DECREASED GLUCOSE; Start 07/22/18 at 04:30 Dextrose (D50w Syringe) 25 ml Q15M PRN IV DECREASED GLUCOSE; Start 07/22/18 at 04:30 Dextrose (D50w Syringe) 50 ml Q15M PRN IV DECREASED GLUCOSE; Start 07/22/18 at 04:30 Glucagon (Glucagen) 1 mg Q15M PRN IM DECREASED GLUCOSE; Start 07/22/18 at 04:30 Glucose (Glutose) 15 gm Q15M PRN BUCCAL DECREASED GLUCOSE; Start 07/22/18 at 04:30 Gentamicin Sulfate (Gentamicin 0.1% Oint) 1 applic HS TOP Last administered on 07/29/18at 23:15; Admin Dose 1 APPLIC; Start 07/22/18 at 21:00 Multi-Ingredient Ointment (Eucerin Cream) 1 applic BID TOP Last administered on 08/11/18at 09:45; Admin Dose 1 APPLIC; Start 07/22/18 at 22:00 Insulin Glargine (Lantus) 9 units DAILY@2000 SC Last administered on 08/10/18at 21:20; Admin Dose 9 UNITS; Start 07/25/18 at 20:00 Tigecycline 50 mg/ Sodium Chloride 100 ml @ 200 mls/hr Q12H IVPB Last administered on 08/11/18at 08:02; Admin Dose 200 MLS/HR; Start 07/25/18 at 20:00 Sodium Biphosphate/ Sodium Phosphate (Fleet Enema) 133 ml DAILY PRN [place] CONSTIPATION Last administered on 08/07/18at 12:37; Admin Dose 133 ML; Start 07/26/18 at 13:00 Alteplase, Recombinant (Cathflo (Activase)) 2 mg MAY REPEAT X1 PRN CATHETER IF CATHETER REMAINS OCCULUDED Last administered on 08/02/18at 22:47; Admin Dose 2 MG; Start 08/02/18 at 21:30 Docusate Sodium (Colace) 100 mg BID PO Last administered on 08/11/18at 09:43; Admin Dose 100 MG; Start 08/04/18 at 21:00 Metronidazole 100 ml @ 100 mls/hr Q8 IVPB Last administered on 08/11/18at 05:53; Admin Dose 100 MLS/HR; Start 08/09/18 at 14:00 Ceftriaxone Sodium 50 ml @ 100 mls/hr Q24H IVPB Last administered on 08/10/18at 13:40; Admin Dose 100 MLS/HR; Start 08/09/18 at 14:00 Mupirocin (Bactroban) 1 applic BID TOP Last administered on 08/11/18at 09:45; Admin Dose 1 APPLIC; Start 08/10/18 at 21:00 Sodium Hypochlorite (Dakins Diluted ()) 1 applic BID TP Last administered on 08/11/18at 09:46; Admin Dose 1 APPLIC; Start 08/10/18 at 21:00 Citric Acid/ Sodium Citrate (Bicitra) 30 ml BID PO Last administered on 08/11/18 09:43; Admin Dose 30 ML; Start 08/11/18 at 09:00 JOSE ESCOBAR August 11, 2018 12:06
--- NOTE | 2018-08-11 14:13 | CONS ---
Assessment/Plan Assessment/Plan Hospital Course (Demo Recall) Patient is alert feels good no more of stomach pain after Flagyl was changed to intravenous route no fevers Antimicrobials: Tygacil, Rocephin, Flagyl Microbiology: Wound culture grew multidrug-resistant Acinetobacter, enterococcus, E. coli, Bacteroides Physical examination: Well-developed well-nourished middle-aged woman who is alert in no distress. Head atraumatic normocephalic sclera nonicteric. Neck is supple. Chest rise symmetrical, breath sounds clear. Heart: S1-S2. Abdomen s oft bowel sounds present. Extremities with bilateral lower extremities dressing clean dry and intact Assessment: 1. Bilateral lower extremities gangrene/Osteomyelitis, status post left transmetatarsal amputation/right fifth and fourth digits amputation and third digit debridement==> Pathology + acute OM R foot 2. Chronic kidney disease, history of hemodialysis 3. Diabetes 4. RUE PICC Plan: Remains stable, continue on current antibiotics for 6 weeks. Wound care per podiatry. Consultation Date/Type/Reason Admit Date/Time July 21, 2018 at 20:31 Initial Consult Date Type of Consult id Date/Time of Note DATE: 08/11/18 TIME: 14:13 Exam/Review of Systems Exam Vitals Vital Signs Date Temp Pulse Resp B/P (MAP) Pulse Ox O2 O2 Flow FiO2 Time Delivery Rate 08/11/18 98.0 76 18 127/77 100 08:34 (94) 08/08/18 Room Air 07:40 Intake and Output 08/10/18 08/10/18 08/11/18 1515:00 23:00 07:00 IntakeIntake Total 1750 ml 820 ml 440 ml OutputOutput Total 2 ml BalanceBalance 1750 ml 820 ml 438 ml Results Result Diagram: 08/11/18 0454 08/11/18 0454 Results 24hrs Laboratory Tests Test 08/10/18 17:31 08/10/18 21:06 08/11/18 02:12 08/11/18 02:43 Bedside Glucose 113 270 H 64 L 152 Test 08/11/18 04:54 08/11/18 07:56 08/11/18 12:51 White Blood Count 9.3 Red Blood Count 3.20 L Hemoglobin 8.7 L Hematocrit 27.4 L Mean Corpuscular 85.6 Volume Mean Corpuscular 27.2 L Hemoglobin Mean Corpuscular 31.8 L Hemoglobin Concent Red Cell 15.8 H Distribution Width Platelet Count 264 Mean Platelet Volume 11.4 H Immature 0.800 H Granulocytes % Neutrophils % 67.7 Lymphocytes % 18.5 Monocytes % 6.0 Eosinophils % 5.8 Basophils % 1.2 Nucleated Red Blood 0.0 Cells % Immature 0.070 H Granulocytes # Neutrophils # 6.3 Lymphocytes # 1.7 Monocytes # 0.6 Eosinophils # 0.5 Basophils # 0.1 Nucleated Red Blood 0.0 Cells # Sodium Level 140 Potassium Level 3.7 Chloride Level 115 H Carbon Dioxide Level 20 L Anion Gap 5 Blood Urea Nitrogen 25 H Creatinine 0.96 Est Glomerular > 60 Filtrat Rate mL/min Glucose Level 167 Calcium Level 8.2 L Phosphorus Level 3.7 Magnesium Level 1.8 Bedside Glucose 93 165 Medications Medication Current Medications IV Flush (NS 3 ml) 3 ml PER PROTOCOL IV ; Start 07/21/18 at 20:30 Ondansetron HCl (Zofran Inj) 4 mg Q6H PRN IV NAUSEA/VOMITING Last administered on 08/07/18 19:42; Admin Dose 4 MG; Start 07/21/18 at 20:30 Acetaminophen (Tylenol Tab) 650 mg Q6H PRN PO .PAIN 1-3 OR TEMP Last administered on 08/09/18 14:32; Admin Dose 650 MG; Start 07/21/18 at 20:30 Morphine Sulfate (morphine) 2 mg Q4H PRN IV .SEVERE PAIN 7-10; Start 07/21/18 at 20:30 Bisacodyl (Dulcolax) 5 mg DAILY PRN PO .CONSTIPATION Last administered on 07/24/18 16:17; Admin Dose 5 MG; Start 07/21/18 at 20:30 Carvedilol (Coreg) 25 mg BID PO Last administered on 08/11/18 09:44; Admin Dose 25 MG; Start 07/21/18 at 23:00 Nifedipine (Procardia Xl) 60 mg DAILY PO Last administered on 08/11/18 09:44; Admin Dose 60 MG; Start 07/22/18 at 09:00 Zinc Sulfate (Zinc Sulfate) 220 mg DAILY PO Last administered on 08/11/18 09:44; Admin Dose 220 MG; Start 07/22/18 at 09:00 Atorvastatin Calcium (Lipitor) 40 mg HS PO Last administered on 08/10/18at 21:10; Admin Dose 40 MG; Start 07/21/18 at 23:21 Insulin Aspart (Novolog Insulin Pen) NOVOLOG *MILD* ALGORITHM WITH MEALS BEDTIME SC Last administered on 08/11/18at 12:56; Admin Dose 1 UNIT; Start 07/22/18 at 08:00 Miscellaneous Information 1 ea NOTE XX ; Start 07/22/18 at 04:30 Glucose (Glutose) 15 gm Q15M PRN PO DECREASED GLUCOSE; Start 07/22/18 at 04:30 Glucose (Glutose) 22.5 gm Q15M PRN PO DECREASED GLUCOSE; Start 07/22/18 at 04:30 Dextrose (D50w Syringe) 25 ml Q15M PRN IV DECREASED GLUCOSE; Start 07/22/18 at 04:30 Dextrose (D50w Syringe) 50 ml Q15M PRN IV DECREASED GLUCOSE; Start 07/22/18 at 04:30 Glucagon (Glucagen) 1 mg Q15M PRN IM DECREASED GLUCOSE; Start 07/22/18 at 04:30 Glucose (Glutose) 15 gm Q15M PRN BUCCAL DECREASED GLUCOSE; Start 07/22/18 at 04:30 Gentamicin Sulfate (Gentamicin 0.1% Oint) 1 applic HS TOP Last administered on 07/29/18at 23:15; Admin Dose 1 APPLIC; Start 07/22/18 at 21:00 Multi-Ingredient Ointment (Eucerin Cream) 1 applic BID TOP Last administered on 08/11/18at 09:45; Admin Dose 1 APPLIC; Start 07/22/18 at 22:00 Insulin Glargine (Lantus) 9 units DAILY@2000 SC Last administered on 08/10/18at 21:20; Admin Dose 9 UNITS; Start 07/25/18 at 20:00 Tigecycline 50 mg/ Sodium Chloride 100 ml @ 200 mls/hr Q12H IVPB Last administered on 08/11/18 08:02; Admin Dose 200 MLS/HR; Start 07/25/18 at 20:00 Sodium Biphosphate/ Sodium Phosphate (Fleet Enema) 133 ml DAILY PRN [place] CONSTIPATION Last administered on 08/07/18at 12:37; Admin Dose 133 ML; Start 07/26/18 at 13:00 Alteplase, Recombinant (Cathflo (Activase)) 2 mg MAY REPEAT X1 PRN CATHETER IF CATHETER REMAINS OCCULUDED Last administered on 08/02/18 22:47; Admin Dose 2 MG; Start 08/02/18 at 21:30 Docusate Sodium (Colace) 100 mg BID PO Last administered on 08/11/18 09:43; Admin Dose 100 MG; Start 08/04/18 at 21:00 Metronidazole 100 ml @ 100 mls/hr Q8 IVPB Last administered on 08/11/18 13:03; Admin Dose 100 MLS/HR; Start 08/09/18 at 14:00 Ceftriaxone Sodium 50 ml @ 100 mls/hr Q24H IVPB Last administered on 08/10/18 13:40; Admin Dose 100 MLS/HR; Start 08/09/18 at 14:00 Mupirocin (Bactroban) 1 applic BID TOP Last administered on 08/11/18 09:45; Admin Dose 1 APPLIC; Start 08/10/18 at 21:00 Sodium Hypochlorite (Dakins Diluted (40)) 1 applic BID TP Last administered on 08/11/18 09:46; Admin Dose 1 APPLIC; Start 08/10/18 at 21:00 Citric Acid/ Sodium Citrate (Bicitra) 30 ml BID PO Last administered on 08/11/18 09:43; Admin Dose 30 ML; Start 08/11/18 at 09:00 SEBASTIAN BARRETO NP August 11, 2018 14:13
[2018-08-11 14:41] VITALS: BP 131/73; PULSE 81; RESP 18
[2018-08-11] MEDS: CEFTRIAXONE 2 GM/50 ML (PMX) 50 ML IVPB SCH (14:42)
--- NOTE | 2018-08-11 16:07 | PN ---
DATE: 08/11/2018 SUBJECTIVE: The patient is being followed for postoperative status left foot TMA, bilateral foot yoel ridement and right toe amputations. The patient had wound VAC held due to maceration. The patient w as seen by PT acute rehabilitation and likely due to patient's inability to tolerate 3 hours of physi palak therapy, is on antibiotics including Tygacil, Rocephin and Flagyl. She had polymicrobial growth including Acinetobacter baumannii, Enterococcus, E. coli and Bacteroides. The patient denies any fev er, nausea, vomiting, pain to bilateral lower extremities. There is some concern from nursing regard ing contact dermatitis to the sacral area. PHYSICAL EXAMINATION: VITAL SIGNS: Temperature is 98.5, pulse is 84, respiratory rate 20, blood pressure is 121/65, pulse ox is 100%. GENERAL: The patient alert, oriented. EXTREMITIES: Dressings are clean, dry, intact. Left foot transmetatarsal amputation with some expos ure to the bone, 4th and 4th and 5th metatarsal. Graft is adhered. Sutures are present in a similar fashion. Graft is also adhered to the right foot with lincoln and suture material. No maceration. A 2+ DP pulse. EXTREMITIES: Warm. No signs of pressure sores to her heels. MICROBIOLOGY: Cultures are reviewed. LABORATORIES: WBC 10.9, hemoglobin 9.1, hematocrit 28.8, platelets 309. ASSESSMENT: 1. History of gangrene. 2. Status post debridement with open amputation of toes, bilateral feet. PLAN: Removal of lincoln and sutures and resuming negative pressure wound therapy. Anticipate 3 mon ths use of the wound VAC. The patient is currently weightbearing with use of a Cam boot and not a ca ndidate for acute rehabilitation. I recommend obtaining home health, will need long-term IV antibiot ics and dressing changes. Anticipate staged operative intervention with sequential allograft applica tion. I recommend discharge planning. Dictated By: HAKAN SPARKS/LESLIE Conf#: [id number] DID#: [id number] CC: MELISSA MORRISSEY MD; JOSE ESCOBAR;*EndCC*
[2018-08-11 19:26] VITALS: BP 116/70; PULSE 83; RESP 18
--- NOTE | 2018-08-11 19:41 | CONS ---
Assessment/Plan Assessment/Plan Assessment/Plan (Daily) Bilateral foot gangrene. Osteomyelitis. Diabetic ulceration with extensive tissue loss. History of stroke. Anemia. Diabetes type 2. Chronic kidney disease. PLAN: Dressings were changed and home wound VAC applied and recommend 3 times a week dressing changes. Sutures and skin lincoln removed. CAM boot dispensed to patient and permitted to use for transfer. Patient would benefit from rehab therapy 4th floor. Continue with abx therapy. Consultation Date/Type/Reason Admit Date/Time July 21, 2018 at 20:31 Initial Consult Date Date/Time of Note DATE: 08/11/18 TIME: 19:41 24 HR Interval Summary Free Text/Dictation No acute events overnight. Exam/Review of Systems Exam Vitals Vital Signs Date Temp Pulse Resp B/P (MAP) Pulse Ox O2 O2 Flow FiO2 Time Delivery Rate 08/11/18 98.1 83 18 116/70 100 Room Air 19:26 (85) Intake and Output 08/10/18 08/10/18 08/11/18 1515:00 23:00 07:00 IntakeIntake Total 1750 ml 820 ml 440 ml OutputOutput Total 2 ml BalanceBalance 1750 ml 820 ml 438 ml Exam Skin grafts in place, no dehiscence noted, No maceration appreciated. No purulent drainage, no proximal streaking. Absent protective sensations Left foot TMA site appreciated Right foot digits 3-5 amputated. Results Result Diagram: 08/11/18 0454 08/11/18 0454 Results 24hrs Laboratory Tests Test 08/10/18 21:06 08/11/18 02:12 08/11/18 02:43 08/11/18 04:54 Bedside Glucose 270 H 64 L 152 White Blood Count 9.3 Red Blood Count 3.20 L Hemoglobin 8.7 L Hematocrit 27.4 L Mean Corpuscular 85.6 Volume Mean Corpuscular 27.2 L Hemoglobin Mean Corpuscular 31.8 L Hemoglobin Concent Red Cell 15.8 H Distribution Width Platelet Count 264 Mean Platelet Volume 11.4 H Immature 0.800 H Granulocytes % Neutrophils % 67.7 Lymphocytes % 18.5 Monocytes % 6.0 Eosinophils % 5.8 Basophils % 1.2 Nucleated Red Blood 0.0 Cells % Immature 0.070 H Granulocytes # Neutrophils # 6.3 Lymphocytes # 1.7 Monocytes # 0.6 Eosinophils # 0.5 Basophils # 0.1 Nucleated Red Blood 0.0 Cells # Sodium Level 140 Potassium Level 3.7 Chloride Level 115 H Carbon Dioxide Level 20 L Anion Gap 5 Blood Urea Nitrogen 25 H Creatinine 0.96 Est Glomerular > 60 Filtrat Rate mL/min Glucose Level 167 Calcium Level 8.2 L Phosphorus Level 3.7 Magnesium Level 1.8 Test 08/11/18 07:56 08/11/18 12:51 08/11/18 18:19 Bedside Glucose 93 165 74 Medications Medication Current Medications IV Flush (NS 3 ml) 3 ml PER PROTOCOL IV ; Start 07/21/18 at 20:30 Ondansetron HCl (Zofran Inj) 4 mg Q6H PRN IV NAUSEA/VOMITING Last administered on 08/07/18 19:42; Admin Dose 4 MG; Start 07/21/18 at 20:30 Acetaminophen (Tylenol Tab) 650 mg Q6H PRN PO .PAIN 1-3 OR TEMP Last administered on 08/09/18 14:32; Admin Dose 650 MG; Start 07/21/18 at 20:30 Morphine Sulfate (morphine) 2 mg Q4H PRN IV .SEVERE PAIN 7-10; Start 07/21/18 at 20:30 Bisacodyl (Dulcolax) 5 mg DAILY PRN PO .CONSTIPATION Last administered on 07/24/18 16:17; Admin Dose 5 MG; Start 07/21/18 at 20:30 Carvedilol (Coreg) 25 mg BID PO Last administered on 08/11/18 09:44; Admin Dose 25 MG; Start 07/21/18 at 23:00 Nifedipine (Procardia Xl) 60 mg DAILY PO Last administered on 08/11/18 09:44; Admin Dose 60 MG; Start 07/22/18 at 09:00 Zinc Sulfate (Zinc Sulfate) 220 mg DAILY PO Last administered on 08/11/18 09:44; Admin Dose 220 MG; Start 07/22/18 at 09:00 Atorvastatin Calcium (Lipitor) 40 mg HS PO Last administered on 08/10/18 21:10; Admin Dose 40 MG; Start 07/21/18 at 23:21 Insulin Aspart (Novolog Insulin Pen) NOVOLOG *MILD* ALGORITHM WITH MEALS BEDTIME SC Last administered on 08/11/18 12:56; Admin Dose 1 UNIT; Start 07/22/18 at 08:00 Miscellaneous Information 1 ea NOTE XX ; Start 07/22/18 at 04:30 Glucose (Glutose) 15 gm Q15M PRN PO DECREASED GLUCOSE; Start 07/22/18 at 04:30 Glucose (Glutose) 22.5 gm Q15M PRN PO DECREASED GLUCOSE; Start 07/22/18 at 04:30 Dextrose (D50w Syringe) 25 ml Q15M PRN IV DECREASED GLUCOSE; Start 07/22/18 at 04:30 Dextrose (D50w Syringe) 50 ml Q15M PRN IV DECREASED GLUCOSE; Start 07/22/18 at 04:30 Glucagon (Glucagen) 1 mg Q15M PRN IM DECREASED GLUCOSE; Start 07/22/18 at 04:30 Glucose (Glutose) 15 gm Q15M PRN BUCCAL DECREASED GLUCOSE; Start 07/22/18 at 04:30 Gentamicin Sulfate (Gentamicin 0.1% Oint) 1 applic HS TOP Last administered on 07/29/18at 23:15; Admin Dose 1 APPLIC; Start 07/22/18 at 21:00 Multi-Ingredient Ointment (Eucerin Cream) 1 applic BID TOP Last administered on 08/11/18at 09:45; Admin Dose 1 APPLIC; Start 07/22/18 at 22:00 Insulin Glargine (Lantus) 9 units DAILY@2000 SC Last administered on 08/10/18at 21:20; Admin Dose 9 UNITS; Start 07/25/18 at 20:00 Tigecycline 50 mg/ Sodium Chloride 100 ml @ 200 mls/hr Q12H IVPB Last administered on 08/11/18at 08:02; Admin Dose 200 MLS/HR; Start 07/25/18 at 20:00 Sodium Biphosphate/ Sodium Phosphate (Fleet Enema) 133 ml DAILY PRN [place] CONSTIPATION Last administered on 08/07/18at 12:37; Admin Dose 133 ML; Start 07/26/18 at 13:00 Alteplase, Recombinant (Cathflo (Activase)) 2 mg MAY REPEAT X1 PRN CATHETER IF CATHETER REMAINS OCCULUDED Last administered on 08/02/18at 22:47; Admin Dose 2 MG; Start 08/02/18 at 21:30 Docusate Sodium (Colace) 100 mg BID PO Last administered on 08/11/18at 09:43; Admin Dose 100 MG; Start 08/04/18 at 21:00 Metronidazole 100 ml @ 100 mls/hr Q8 IVPB Last administered on 08/11/18 13:03; Admin Dose 100 MLS/HR; Start 08/09/18 at 14:00 Ceftriaxone Sodium 50 ml @ 100 mls/hr Q24H IVPB Last administered on 08/11/18 14:42; Admin Dose 100 MLS/HR; Start 08/09/18 at 14:00 Mupirocin (Bactroban) 1 applic BID TOP Last administered on 08/11/18 09:45; Admin Dose 1 APPLIC; Start 08/10/18 at 21:00 Sodium Hypochlorite (Dakins Diluted (40)) 1 applic BID TP Last administered on 08/11/18 09:46; Admin Dose 1 APPLIC; Start 08/10/18 at 21:00 Citric Acid/ Sodium Citrate (Bicitra) 30 ml BID PO Last administered on 08/11/18 09:43; Admin Dose 30 ML; Start 08/11/18 at 09:00 ANANT BROUSSARD DPM August 11, 2018 19:41
[2018-08-11] MEDS: ATORVASTATIN 40 MG TAB PO SCH (20:59)
[2018-08-11] MEDS: INSULIN GLARGINE [LANTus] (100 UNITS/ML) SYG SC SCH (21:00)
[2018-08-11] MEDS: GENTAMICIN 0.1% 15 GM OINT TOP SCH (21:00)
[2018-08-12 01:50] VITALS: BP 120/69; PULSE 78; RESP 18
[2018-08-12] MEDS: metroNIDAZOLE 500 MG/NS (PMX) 100 ML IVPB SCH ×3 (05:43→21:58)
[2018-08-12 07:47] VITALS: BP 123/72; PULSE 80; RESP 16
[2018-08-12] MEDS: INSULIN ASPART [NOVOLOG] 3 ML PEN SC SCH ×4 (08:00→20:37)
[2018-08-12] MEDS: ZINC SULFATE 220 MG CAP PO SCH (08:14)
[2018-08-12] MEDS: CITRIC ACID/NA CITRATE 30 ML CUP PO SCH ×2 (08:14→20:38)
[2018-08-12] MEDS: NIFEdipine (XL) 60 MG TAB PO SCH (08:15)
[2018-08-12] MEDS: EUCERIN 113 GM CR TOP SCH ×2 (08:16→20:46)
[2018-08-12] MEDS: DAKINS 0.0125%(1/40) 473 ML SOLUTION TP SCH ×2 (08:16→20:46)
[2018-08-12] MEDS: MUPIROCIN 2% 22 GM OINT TOP SCH ×2 (08:16→20:46)
[2018-08-12] MEDS: DOCUSATE SODIUM 100 MG CAP PO SCH ×2 (08:16→20:38)
[2018-08-12] MEDS: TIGECYCLINE 50 MG in SOD CHLORIDE 0.9% 100 ML IVPB SCH ×2 (08:28→20:38)
--- NOTE | 2018-08-12 08:50 | PN ---
DATE: 08/12/2018 SUBJECTIVE: The patient is stable. No events overnight. OBJECTIVE: VITAL SIGNS: Blood pressure is 123/72, pulse 80, respirations 16, temperature 97.6. HEENT: Head is normocephalic. NECK: Supple. HEART: Regular rate. LUNGS: Show diminished breath sounds at the base. ABDOMEN: Soft, nontender to palpation without rebound or guarding. EXTREMITIES: Negative for clubbing, cyanosis. Trace edema. DERMATOLOGIC: No rashes. MUSCULOSKELETAL: No joint effusion. NEUROLOGIC: No change in exam. MEDICATIONS: Reviewed. LABORATORY DATA: Reviewed. ASSESSMENT AND PLAN: 1. Nonoliguric acute kidney injury on top of chronic kidney disease with baseline creatinine of 1.3 mg/dL. Etiology of acute kidney injury is secondary to hemodynamics. Renal function is stable. Con efraue current treatment plan, supportive care and renally dose all medications. 2. Mild hyperkalemia, resolved. 3. Metabolic acidosis. Continue Bicitra. 4. Anemia. Continue to monitor hemoglobin and hematocrit levels. 5. Mineral bone disorder, monitor calcium and phosphorus levels. 6. Bilateral gangrenous toe with osteomyelitis. The patient is status post wound VAC. Continue to monitor. Follow up with podiatry. 7. Diabetes. Continue current insulin regimen. 8. History of cerebrovascular accident. Dictated By: PARI AMAYA/LESLIE Conf#: [id number] DID#: [id number] CC: MELISSA MORRISSEY MD; JOSE ESCOBAR;*EndCC*
--- NOTE | 2018-08-12 12:39 | PN ---
Date/Time of Note Date/Time of Note DATE: 08/12/18 TIME: 12:37 Assessment/Plan VTE Prophylaxis Risk score (from Nsg)>0 risk: 5 SCD applied (from Nsg): Yes Pharmacological prophylaxis: other Lines/Catheters IV Catheter Type (from Nrsg): PICC Line Central line still needed: Yes Urinary Cath still in place: No Assessment/Plan Hospital Course S: Patient seen by podiatry team yesterday and wound VAC was reattached after his sutures and lincoln removed. Also seen by ID team. O: VS-see below PE: Well appearing in NAD AOx3 RRR CTAB NT, ND, soft no focal deficits A/P: 48 yo female with h/o critical illness for which received vasopressors and developed digital ischemia who recovered but developed gangrene of toes and finger who was referred to hospital for evaluation of leukocytosis. Found to have OM of feet as well. # Bilateral lower extremities gangrene/osteomyelitis- status post left transmetatarsal amputation/right fifth and fourth digits amputation and third digit debridement. Wound culture grew multidrug-resistant Acinetobacter, enterococcus, E. coli, Bacteroides -Continue Abx per ID -now recommending IV Zosyn and IV tigecycline -Per ID te am all till 09/10/18 - perioperative management per podiatry, per discussion with podiatry team -again patient now with wound VAC likely VAC in place; at home will need to use wound VAC for 3 months total and get changes performed 3 times a week-Case management working order to set this up now. DMII: Sugars are stable, A1c was 6.4. -Monitor, sliding scale insulin hypertension: Stable - continue nifedipine, coreg Dispo: Likely ready for dc home with HH, IV abx and wound vacs set up for home use first once this has been set up, likely in the next 24 hours. Result Diagram: 08/12/18 0509 08/11/18 0454 Results 24hrs Laboratory Tests Test 08/11/18 12:51 08/11/18 18:19 08/11/18 20:58 08/12/18 05:09 Bedside Glucose 165 74 103 White Blood Count 10.6 Red Blood Count 3.33 L Hemoglobin 9.2 L Hematocrit 28.3 L Mean Corpuscular 85.0 Volume Mean Corpuscular 27.6 L Hemoglobin Mean Corpuscular 32.5 Hemoglobin Concent Red Cell 15.7 H Distribution Width Platelet Count 242 Mean Platelet Volume 11.2 H Immature 0.600 H Granulocytes % Neutrophils % 64.5 Lymphocytes % 19.6 Monocytes % 8.1 Eosinophils % 6.1 Basophils % 1.1 Nucleated Red Blood 0.0 Cells % Immature 0.060 H Granulocytes # Neutrophils # 6.9 Lymphocytes # 2.1 Monocytes # 0.9 Eosinophils # 0.7 H Basophils # 0.1 Nucleated Red Blood 0.0 Cells # Test 08/12/18 08:11 Bedside Glucose 87 Exam/Review of Systems Exam Vitals Vital Signs Date Temp Pulse Resp B/P (MAP) Pulse Ox O2 O2 Flow FiO2 Time Delivery Rate 08/12/18 97.6 80 16 123/72 100 07:47 (89) 08/12/18 Room Air 01:50 Intake and Output 08/11/18 08/11/18 08/12/18 1515:00 23:00 07:00 IntakeIntake Total 460 ml 820 ml 320 ml OutputOutput Total 600 ml BalanceBalance 460 ml 820 ml -280 ml Results Results 24hrs Laboratory Tests Test 08/11/18 12:51 08/11/18 18:19 08/11/18 20:58 08/12/18 05:09 Bedside Glucose 165 74 103 White Blood Count 10.6 Red Blood Count 3.33 L Hemoglobin 9.2 L Hematocrit 28.3 L Mean Corpuscular 85.0 Volume Mean Corpuscular 27.6 L Hemoglobin Mean Corpuscular 32.5 Hemoglobin Concent Red Cell 15.7 H Distribution Width Platelet Count 242 Mean Platelet Volume 11.2 H Immature 0.600 H Granulocytes % Neutrophils % 64.5 Lymphocytes % 19.6 Monocytes % 8.1 Eosinophils % 6.1 Basophils % 1.1 Nucleated Red Blood 0.0 Cells % Immature 0.060 H Granulocytes # Neutrophils # 6.9 Lymphocytes # 2.1 Monocytes # 0.9 Eosinophils # 0.7 H Basophils # 0.1 Nucleated Red Blood 0.0 Cells # Test 08/12/18 08:11 Bedside Glucose 87 Medications Medication Current Medications IV Flush (NS 3 ml) 3 ml PER PROTOCOL IV ; Start 07/21/18 at 20:30 Ondansetron HCl (Zofran Inj) 4 mg Q6H PRN IV NAUSEA/VOMITING Last administered on 08/07/18 19:42; Admin Dose 4 MG; Start 07/21/18 at 20:30 Acetaminophen (Tylenol Tab) 650 mg Q6H PRN PO .PAIN 1-3 OR TEMP Last administered on 08/09/18 14:32; Admin Dose 650 MG; Start 07/21/18 at 20:30 Morphine Sulfate (morphine) 2 mg Q4H PRN IV .SEVERE PAIN 7-10; Start 07/21/18 at 20:30 Bisacodyl (Dulcolax) 5 mg DAILY PRN PO .CONSTIPATION Last administered on 07/24/18 16:17; Admin Dose 5 MG; Start 07/21/18 at 20:30 Carvedilol (Coreg) 25 mg BID PO Last administered on 08/12/18 08:16; Admin Dose 25 MG; Start 07/21/18 at 23:00 Nifedipine (Procardia Xl) 60 mg DAILY PO Last administered on 08/12/18 08:15; Admin Dose 60 MG; Start 07/22/18 at 09:00 Zinc Sulfate (Zinc Sulfate) 220 mg DAILY PO Last administered on 08/12/18 08:14; Admin Dose 220 MG; Start 07/22/18 at 09:00 Atorvastatin Calcium (Lipitor) 40 mg HS PO Last administered on 08/11/18 20:59; Admin Dose 40 MG; Start 07/21/18 at 23:21 Insulin Aspart (Novolog Insulin Pen) NOVOLOG *MILD* ALGORITHM WITH MEALS BEDTIME SC Last administered on 08/11/18 12:56; Admin Dose 1 UNIT; Start 07/22/18 at 08:00 Miscellaneous Information 1 ea NOTE XX ; Start 07/22/18 at 04:30 Glucose (Glutose) 15 gm Q15M PRN PO DECREASED GLUCOSE; Start 07/22/18 at 04:30 Glucose (Glutose) 22.5 gm Q15M PRN PO DECREASED GLUCOSE; Start 07/22/18 at 04:30 Dextrose (D50w Syringe) 25 ml Q15M PRN IV DECREASED GLUCOSE; Start 07/22/18 at 04:30 Dextrose (D50w Syringe) 50 ml Q15M PRN IV DECREASED GLUCOSE; Start 07/22/18 at 04:30 Glucagon (Glucagen) 1 mg Q15M PRN IM DECREASED GLUCOSE; Start 07/22/18 at 04:30 Glucose (Glutose) 15 gm Q15M PRN BUCCAL DECREASED GLUCOSE; Start 07/22/18 at 04:30 Gentamicin Sulfate (Gentamicin 0.1% Oint) 1 applic HS TOP Last administered on 07/29/18 23:15; Admin Dose 1 APPLIC; Start 07/22/18 at 21:00 Multi-Ingredient Ointment (Eucerin Cream) 1 applic BID TOP Last administered on 08/12/18 08:16; Admin Dose 1 APPLIC; Start 07/22/18 at 22:00 Insulin Glargine (Lantus) 9 units DAILY@2000 SC Last administered on 08/10/18 21:20; Admin Dose 9 UNITS; Start 07/25/18 at 20:00 Tigecycline 50 mg/ Sodium Chloride 100 ml @ 200 mls/hr Q12H IVPB Last administered on 08/12/18 08:28; Admin Dose 200 MLS/HR; Start 07/25/18 at 20:00 Sodium Biphosphate/ Sodium Phosphate (Fleet Enema) 133 ml DAILY PRN [place] CONSTIPATION Last administered on 08/07/18 12:37; Admin Dose 133 ML; Start 07/26/18 at 13:00 Alteplase, Recombinant (Cathflo (Activase)) 2 mg MAY REPEAT X1 PRN CATHETER IF CATHETER REMAINS OCCULUDED Last administered on 08/02/18 22:47; Admin Dose 2 MG; Start 08/02/18 at 21:30 Docusate Sodium (Colace) 100 mg BID PO Last administered on 08/11/18 09:43; Admin Dose 100 MG; Start 08/04/18 at 21:00 Metronidazole 100 ml @ 100 mls/hr Q8 IVPB Last administered on 08/12/18 05:43; Admin Dose 100 MLS/HR; Start 08/09/18 at 14:00 Ceftriaxone Sodium 50 ml @ 100 mls/hr Q24H IVPB Last administered on 08/11/18 14:42; Admin Dose 100 MLS/HR; Start 08/09/18 at 14:00 Mupirocin (Bactroban) 1 applic BID TOP Last administered on 08/11/18 09:45; Admin Dose 1 APPLIC; Start 08/10/18 at 21:00 Sodium Hypochlorite (Dakins Diluted (1/40)) 1 applic BID TP Last administered on 08/11/18at 09:46; Admin Dose 1 APPLIC; Start 08/10/18 at 21:00 Citric Acid/ Sodium Citrate (Bicitra) 30 ml BID PO Last administered on 08/12/18at 08:14; Admin Dose 30 ML; Start 08/11/18 at 09:00 JOSE ESCOBAR August 12, 2018 12:39
[2018-08-12] MEDS: CEFTRIAXONE 2 GM/50 ML (PMX) 50 ML IVPB SCH (14:12)
[2018-08-12 14:53] VITALS: BP 132/69; PULSE 89; RESP 16
--- NOTE | 2018-08-12 14:56 | CONS ---
Assessment/Plan Assessment/Plan Hospital Course (Demo Recall) Patient is alert feels good no fevers no n/v/d Antimicrobials: Tygacil, Rocephin, Flagyl Microbiology: Wound culture grew multidrug-resistant Acinetobacter, enterococcus, E. coli, Bacteroides Physical examination: Well-developed well-nourished middle-aged woman who is alert in no distress. Head atraumatic normocephalic sclera nonicteric. Neck is supple. Chest rise symmetrical, breath sounds clear. Heart: S1-S2. Abdomen soft bowel sounds present. Extremities with bilateral lower extremities dressing clean dry and intact Assessment: 1. Bilateral lower extremities gangrene/Osteomyelitis, status post left transmetatarsal amputation/right fifth and fourth digits amputation and third digit debridement==> Pathology + acute OM R foot 2. Chronic kidney disease, history of hemodialysis 3. Diabetes 4. RUE PICC Plan: Remains stable, continue on current antibiotics for 6 + weeks. Wound care per podiatry, pt will likely require more surgical interventions. Hal Rice Consultation Date/Type/Reason Admit Date/Time July 21, 2018 at 20:31 Initial Consult Date Type of Consult id Date/Time of Note DATE: 08/12/18 TIME: 14:55 Exam/Review of Systems Exam Vitals Vital Signs Date Temp Pulse Resp B/P (MAP) Pulse Ox O2 O2 Flow FiO2 Time Delivery Rate 08/12/18 98.7 89 16 132/69 100 14:53 (90) 08/12/18 Room Air 01:50 Intake and Output 08/11/18 08/11/18 08/12/18 1515:00 23:00 07:00 IntakeIntake Total 460 ml 820 ml 320 ml OutputOutput Total 600 ml BalanceBalance 460 ml 820 ml -280 ml Results Result Diagram: 08/12/18 0509 08/11/18 0454 Results 24hrs Laboratory Tests Test 08/11/18 18:19 08/11/18 20:58 08/12/18 05:09 08/12/18 08:11 Bedside Glucose 74 103 87 White Blood Count 10.6 Red Blood Count 3.33 L Hemoglobin 9.2 L Hematocrit 28.3 L Mean Corpuscular 85.0 Volume Mean Corpuscular 27.6 L Hemoglobin Mean Corpuscular 32.5 Hemoglobin Concent Red Cell 15.7 H Distribution Width Platelet Count 242 Mean Platelet Volume 11.2 H Immature 0.600 H Granulocytes % Neutrophils % 64.5 Lymphocytes % 19.6 Monocytes % 8.1 Eosinophils % 6.1 Basophils % 1.1 Nucleated Red Blood 0.0 Cells % Immature 0.060 H Granulocytes # Neutrophils # 6.9 Lymphocytes # 2.1 Monocytes # 0.9 Eosinophils # 0.7 H Basophils # 0.1 Nucleated Red Blood 0.0 Cells # Test 08/12/18 12:54 Bedside Glucose 264 H Medications Medication Current Medications IV Flush (NS 3 ml) 3 ml PER PROTOCOL IV ; Start 07/21/18 at 20:30 Ondansetron HCl (Zofran Inj) 4 mg Q6H PRN IV NAUSEA/VOMITING Last administered on 08/07/18 19:42; Admin Dose 4 MG; Start 07/21/18 at 20:30 Acetaminophen (Tylenol Tab) 650 mg Q6H PRN PO .PAIN 1-3 OR TEMP Last administered on 08/09/18 14:32; Admin Dose 650 MG; Start 07/21/18 at 20:30 Morphine Sulfate (morphine) 2 mg Q4H PRN IV .SEVERE PAIN 7-10; Start 07/21/18 at 20:30 Bisacodyl (Dulcolax) 5 mg DAILY PRN PO .CONSTIPATION Last administered on 07/24/18 16:17; Admin Dose 5 MG; Start 07/21/18 at 20:30 Carvedilol (Coreg) 25 mg BID PO Last administered on 08/12/18 08:16; Admin Dose 25 MG; Start 07/21/18 at 23:00 Nifedipine (Procardia Xl) 60 mg DAILY PO Last administered on 08/12/18 08:15; Admin Dose 60 MG; Start 07/22/18 at 09:00 Zinc Sulfate (Zinc Sulfate) 220 mg DAILY PO Last administered on 08/12/18 08:14; Admin Dose 220 MG; Start 07/22/18 at 09:00 Atorvastatin Calcium (Lipitor) 40 mg HS PO Last administered on 08/11/18 20:59; Admin Dose 40 MG; Start 07/21/18 at 23:21 Insulin Aspart (Novolog Insulin Pen) NOVOLOG *MILD* ALGORITHM WITH MEALS BEDTIME SC Last administered on 08/12/18 12:56; Admin Dose 4 UNIT; Start 07/22/18 at 08:00 Miscellaneous Information 1 ea NOTE XX ; Start 07/22/18 at 04:30 Glucose (Glutose) 15 gm Q15M PRN PO DECREASED GLUCOSE; Start 07/22/18 at 04:30 Glucose (Glutose) 22.5 gm Q15M PRN PO DECREASED GLUCOSE; Start 07/22/18 at 04:30 Dextrose (D50w Syringe) 25 ml Q15M PRN IV DECREASED GLUCOSE; Start 07/22/18 at 04:30 Dextrose (D50w Syringe) 50 ml Q15M PRN IV DECREASED GLUCOSE; Start 07/22/18 at 04:30 Glucagon (Glucagen) 1 mg Q15M PRN IM DECREASED GLUCOSE; Start 07/22/18 at 04:30 Glucose (Glutose) 15 gm Q15M PRN BUCCAL DECREASED GLUCOSE; Start 07/22/18 at 04:30 Gentamicin Sulfate (Gentamicin 0.1% Oint) 1 applic HS TOP Last administered on 07/29/18at 23:15; Admin Dose 1 APPLIC; Start 07/22/18 at 21:00 Multi-Ingredient Ointment (Eucerin Cream) 1 applic BID TOP Last administered on 08/12/18at 08:16; Admin Dose 1 APPLIC; Start 07/22/18 at 22:00 Insulin Glargine (Lantus) 9 units DAILY@2000 SC Last administered on 08/10/18at 21:20; Admin Dose 9 UNITS; Start 07/25/18 at 20:00 Tigecycline 50 mg/ Sodium Chloride 100 ml @ 200 mls/hr Q12H IVPB Last administered on 08/12/18at 08:28; Admin Dose 200 MLS/HR; Start 07/25/18 at 20:00 Sodium Biphosphate/ Sodium Phosphate (Fleet Enema) [address] CONSTIPATION Last administered on 08/07/18at 12:37; Admin Dose 133 ML; Start 07/26/18 at 13:00 Alteplase, Recombinant (Cathflo (Activase)) 2 mg MAY REPEAT X1 PRN CATHETER IF CATHETER REMAINS OCCULUDED Last administered on 08/02/18at 22:47; Admin Dose 2 MG; Start 08/02/18 at 21:30 Docusate Sodium (Colace) 100 mg BID PO Last administered on 08/11/18at 09:43; Admin Dose 100 MG; Start 08/04/18 at 21:00 Metronidazole 100 ml @ 100 mls/hr Q8 IVPB Last administered on 08/12/18 05:43; Admin Dose 100 MLS/HR; Start 08/09/18 at 14:00 Ceftriaxone Sodium 50 ml @ 100 mls/hr Q24H IVPB Last administered on 08/12/18 14:12; Admin Dose 100 MLS/HR; Start 08/09/18 at 14:00 Mupirocin (Bactroban) 1 applic BID TOP Last administered on 08/11/18 09:45; Admin Dose 1 APPLIC; Start 08/10/18 at 21:00 Sodium Hypochlorite (Dakins Diluted (/40)) 1 applic BID TP Last administered on 08/11/18 09:46; Admin Dose 1 APPLIC; Start 08/10/18 at 21:00 Citric Acid/ Sodium Citrate (Bicitra) 30 ml BID PO Last administered on 08/12/18 08:14; Admin Dose 30 ML; Start 08/11/18 at 09:00 SEBASTIAN BARRETO NP August 12, 2018 14:55
[2018-08-12 20:00] VITALS: BP 117/76; PULSE 91; RESP 17
[2018-08-12] MEDS: INSULIN GLARGINE [LANTus] (100 UNITS/ML) SYG SC SCH (20:00)
[2018-08-12] MEDS: ATORVASTATIN 40 MG TAB PO SCH (20:38)
[2018-08-12 20:41] VITALS: BP 125/74; PULSE 82; RESP 18
[2018-08-12] MEDS: GENTAMICIN 0.1% 15 GM OINT TOP SCH (20:46)
[2018-08-13 02:27] VITALS: BP 132/74; PULSE 85; RESP 18
[2018-08-13] MEDS: metroNIDAZOLE 500 MG/NS (PMX) 100 ML IVPB SCH ×3 (05:25→22:15)
[2018-08-13 07:41] VITALS: BP 125/62; PULSE 83; RESP 18
[2018-08-13] MEDS: INSULIN ASPART [NOVOLOG] 3 ML PEN SC SCH ×4 (08:00→20:45)
[2018-08-13] MEDS: DOCUSATE SODIUM 100 MG CAP PO SCH ×2 (08:02→20:44)
[2018-08-13] MEDS: CITRIC ACID/NA CITRATE 30 ML CUP PO SCH (08:02)
[2018-08-13] MEDS: TIGECYCLINE 50 MG in SOD CHLORIDE 0.9% 100 ML IVPB SCH ×2 (08:02→20:44)
[2018-08-13] MEDS: ZINC SULFATE 220 MG CAP PO SCH (08:03)
[2018-08-13] MEDS: NIFEdipine (XL) 60 MG TAB PO SCH (08:03)
[2018-08-13] MEDS: MUPIROCIN 2% 22 GM OINT TOP SCH ×2 (08:03→20:48)
[2018-08-13] MEDS: DAKINS 0.0125%(1/40) 473 ML SOLUTION TP SCH ×2 (08:04→20:49)
[2018-08-13] MEDS: EUCERIN 113 GM CR TOP SCH ×2 (08:04→20:48)
[2018-08-13] MEDS ORDERED: POTASSIUM CHLORIDE (SR) 20 MEQ TAB PO STA (08:23)
--- NOTE | 2018-08-13 08:54 | PN ---
DATE: 08/13/2018 SUBJECTIVE: The patient is stable. No events overnight. No fevers, chills, nausea or vomiting. OBJECTIVE: VITAL SIGNS: Blood pressure is 125/62, respiration 18, pulse 83, temperature 97.8. HEENT: Head is normocephalic. NECK: Supple. HEART: Regular rate. LUNGS: Show diminished breath sounds at the base. ABDOMEN: Soft, nontender to palpation without rebound or guarding. EXTREMITIES: Negative for clubbing, cyanosis, no edema. DERMATOLOGIC: No rashes. MUSCULOSKELETAL: No joint effusions. NEUROLOGIC: No change in exam. MEDICATIONS: Have been reviewed. LABORATORY DATA: Has been reviewed. ASSESSMENT AND PLAN: 1. Nonoliguric acute kidney injury on top of chronic kidney disease with previous baseline creatinin e of 1.3 mg/dL. Etiology of acute kidney injury is secondary to hemodynamics. Renal function is imp roved. Continue current treatment plan, supportive care, renally dose all meds. 2. Hypokalemia. We will replete with potassium chloride. 3. Metabolic acidosis, improved. Will discontinue Bicitra. 4. Anemia. Continue to monitor hemoglobin and hematocrit levels. 5. Mineral bone disorder, monitor calcium and phosphorus levels. 6. Bilateral gangrenous toe with osteomyelitis. The patient is status post wound VAC. Continue to monitor. Follow podiatry recommendations. 7. Diabetes. Continue current insulin regimen. 8. History of cerebrovascular accident. Dictated By: PARI TRAN DO NR/NTS Conf#: [id number] DID#: [id number] CC: MELISSA MORRISSEY MD;*EndCC*
--- NOTE | 2018-08-13 11:49 | CONS ---
Assessment/Plan Assessment/Plan Hospital Course (Demo Recall) Patient is alert feels good no fevers no n/v/d Antimicrobials: Tygacil, Rocephin, Flagyl Microbiology: Wound culture grew multidrug-resistant Acinetobacter, enterococcus, E. coli, Bacteroides Physical examination: Well-developed well-nourished middle-aged woman who is alert in no distress. Head atraumatic normocephalic sclera nonicteric. Neck is supple. Chest rise symmetrical, breath sounds clear. Heart: S1-S2. Abdomen soft bowel sounds present. Extremities with bilateral lower extremities dressing clean dry and intact Assessment: 1. Bilateral lower extremities gangrene/Osteomyelitis, status post left transmetatarsal amputation/right fifth and fourth digits amputation and third digit debridement==> Pathology + acute OM R foot 2. Chronic kidney disease, history of hemodialysis 3. Diabetes 4. RUE PICC Plan: Remains stable, continue on current antibiotics for 6 + weeks. Pt doesn't tolerate oral Flagyl Consultation Date/Type/Reason Admit Date/Time July 21, 2018 at 20:31 Initial Consult Date Type of Consult id Date/Time of Note DATE: 08/13/18 TIME: 11:47 Exam/Review of Systems Exam Vitals Vital Signs Date Temp Pulse Resp B/P (MAP) Pulse Ox O2 O2 Flow FiO2 Time Delivery Rate 08/13/18 97.8 83 18 125/62 100 07:41 (83) 08/12/18 Room Air 01:50 Intake and Output 08/12/18 08/12/18 08/13/18 1515:00 23:00 07:00 IntakeIntake Total 1110 ml 300 ml 100 ml OutputOutput Total 400 ml BalanceBalance 710 ml 300 ml 100 ml Results Result Diagram: 08/13/18 0501 08/13/18 0501 Results 24hrs Laboratory Tests Test 08/12/18 12:54 08/12/18 17:25 08/12/18 20:36 08/13/18 05:01 Bedside Glucose 264 H 112 100 White Blood Count 9.7 Red Blood Count 3.28 L Hemoglobin 9.0 L Hematocrit 27.7 L Mean Corpuscular 84.5 Volume Mean Corpuscular 27.4 L Hemoglobin Mean Corpuscular 32.5 Hemoglobin Concent Red Cell 16.1 H Distribution Width Platelet Count 228 Mean Platelet Volume 12.2 H Immature 0.500 H Granulocytes % Neutrophils % 59.8 Lymphocytes % 24.1 Monocytes % 7.4 Eosinophils % 6.9 Basophils % 1.3 Nucleated Red Blood 0.0 Cells % Immature 0.050 H Granulocytes # Neutrophils # 5.8 Lymphocytes # 2.4 Monocytes # 0.7 Eosinophils # 0.7 H Basophils # 0.1 Nucleated Red Blood 0.0 Cells # Sodium Level 144 Potassium Level 3.4 L Chloride Level 116 H Carbon Dioxide Level 25 Anion Gap 3 L Blood Urea Nitrogen 21 H Creatinine 0.89 Est Glomerular > 60 Filtrat Rate mL/min Glucose Level 93 Calcium Level 8.2 L Phosphorus Level 4.1 Magnesium Level 1.8 Test 08/13/18 08:00 Bedside Glucose 118 Medications Medication Current Medications IV Flush (NS 3 ml) 3 ml PER PROTOCOL IV ; Start 07/21/18 at 20:30 Ondansetron HCl (Zofran Inj) 4 mg Q6H PRN IV NAUSEA/VOMITING Last administered on 08/07/18 19:42; Admin Dose 4 MG; Start 07/21/18 at 20:30 Acetaminophen (Tylenol Tab) 650 mg Q6H PRN PO .PAIN 1-3 OR TEMP Last administered on 08/09/18 14:32; Admin Dose 650 MG; Start 07/21/18 at 20:30 Morphine Sulfate (morphine) 2 mg Q4H PRN IV .SEVERE PAIN 7-10; Start 07/21/18 at 20:30 Bisacodyl (Dulcolax) 5 mg DAILY PRN PO .CONSTIPATION Last administered on 07/24/18 16:17; Admin Dose 5 MG; Start 07/21/18 at 20:30 Carvedilol (Coreg) 25 mg BID PO Last administered on 08/13/18 08:03; Admin Dose 25 MG; Start 07/21/18 at 23:00 Nifedipine (Procardia Xl) 60 mg DAILY PO Last administered on 08/13/18 08:03; Admin Dose 60 MG; Start 07/22/18 at 09:00 Zinc Sulfate (Zinc Sulfate) 220 mg DAILY PO Last administered on 08/13/18 08:03; Admin Dose 220 MG; Start 07/22/18 at 09:00 Atorvastatin Calcium (Lipitor) 40 mg HS PO Last administered on 08/12/18 20:38; Admin Dose 40 MG; Start 07/21/18 at 23:21 Insulin Aspart (Novolog Insulin Pen) NOVOLOG *MILD* ALGORITHM WITH MEALS BEDTIME SC Last administered on 08/12/18at 12:56; Admin Dose 4 UNIT; Start 07/22/18 at 08:00 Miscellaneous Information 1 ea NOTE XX ; Start 07/22/18 at 04:30 Glucose (Glutose) 15 gm Q15M PRN PO DECREASED GLUCOSE; Start 07/22/18 at 04:30 Glucose (Glutose) 22.5 gm Q15M PRN PO DECREASED GLUCOSE; Start 07/22/18 at 04:30 Dextrose (D50w Syringe) 25 ml Q15M PRN IV DECREASED GLUCOSE; Start 07/22/18 at 04:30 Dextrose (D50w Syringe) 50 ml Q15M PRN IV DECREASED GLUCOSE; Start 07/22/18 at 04:30 Glucagon (Glucagen) 1 mg Q15M PRN IM DECREASED GLUCOSE; Start 07/22/18 at 04:30 Glucose (Glutose) 15 gm Q15M PRN BUCCAL DECREASED GLUCOSE; Start 07/22/18 at 04:30 Gentamicin Sulfate (Gentamicin 0.1% Oint) 1 applic HS TOP Last administered on 07/29/18at 23:15; Admin Dose 1 APPLIC; Start 07/22/18 at 21:00 Multi-Ingredient Ointment (Eucerin Cream) 1 applic BID TOP Last administered on 08/13/18at 08:04; Admin Dose 1 APPLIC; Start 07/22/18 at 22:00 Insulin Glargine (Lantus) 9 units DAILY@2000 SC Last administered on 08/10/18at 21:20; Admin Dose 9 UNITS; Start 07/25/18 at 20:00 Tigecycline 50 mg/ Sodium Chloride 100 ml @ 200 mls/hr Q12H IVPB Last administered on 08/13/18at 08:02; Admin Dose 200 MLS/HR; Start 07/25/18 at 20:00 Sodium Biphosphate/ Sodium Phosphate (Fleet Enema) 133 ml DAILY PRN [place] CONSTIPATION Last administered on 08/07/18at 12:37; Admin Dose 133 ML; Start 07/26/18 at 13:00 Alteplase, Recombinant (Cathflo (Activase)) 2 mg MAY REPEAT X1 PRN CATHETER IF CATHETER REMAINS OCCULUDED Last administered on 08/02/18 22:47; Admin Dose 2 MG; Start 08/02/18 at 21:30 Docusate Sodium (Colace) 100 mg BID PO Last administered on 08/13/18 08:02; Admin Dose 100 MG; Start 08/04/18 at 21:00 Metronidazole 100 ml @ 100 mls/hr Q8 IVPB Last administered on 08/13/18 05:25; Admin Dose 100 MLS/HR; Start 08/09/18 at 14:00 Ceftriaxone Sodium 50 ml @ 100 mls/hr Q24H IVPB Last administered on 08/12/18 14:12; Admin Dose 100 MLS/HR; Start 08/09/18 at 14:00 Mupirocin (Bactroban) 1 applic BID TOP Last administered on 08/11/18 09:45; Admin Dose 1 APPLIC; Start 08/10/18 at 21:00 Sodium Hypochlorite (Dakins Diluted (1/40)) 1 applic BID TP Last administered on 08/11/18 09:46; Admin Dose 1 APPLIC; Start 08/10/18 at 21:00 Citric Acid/ Sodium Citrate (Bicitra) 30 ml BID PO Last administered on 08/13/18 08:02; Admin Dose 30 ML; Start 08/11/18 at 09:00; Status Hold SEBASTIAN BARRETO NP August 13, 2018 11:49
[2018-08-13 13:17] VITALS: BP 147/79; PULSE 88; RESP 18
--- NOTE | 2018-08-13 14:58 | PN ---
Date/Time of Note Date/Time of Note DATE: 08/13/18 TIME: 14:50 Assessment/Plan VTE Prophylaxis Risk score (from Nsg)>0 risk: 6 SCD applied (from Nsg): Yes Pharmacological prophylaxis: other Lines/Catheters IV Catheter Type (from Nrsg): PICC Line Central line still needed: Yes Urinary Cath still in place: No Assessment/Plan Hospital Course S: No acute events overnight, seen by ID and renal teams earlier today. O: VS-see below PE: Well appearing in NAD AOx3 RRR CTAB NT, ND, soft no focal deficits A/P: 48 yo female with h/o critical illness for which received vasopressors and developed digital ischemia who recovered but developed gangrene of toes and finger who was referred to hospital for evaluation of leukocytosis. Found to have OM of feet as well. # Bilateral lower extremities gangrene/osteomyelitis- status post left transmetatarsal amputation/right fifth and fourth digits amputation and third digit debridement. Wound culture grew multidrug-resistant Acinetobacter, enterococcus, E. coli, Bacteroides -Continue Abx per ID -now recommending IV Zosyn and IV tigecycline -Per ID team all till 09/10/18 - perioperative management per podiatry, per discussion with podiatry team - again patient now with wound VAC back in place; at home will need to use wound VAC for 3 months total and get changes performed 3 times a week-Case management has set this up for home use now DMII: Sugars are stable, A1c was 6.4. -Monitor, sliding scale insulin hypertension: Stable - continue nifedipine, coreg Dispo: Likely ready for dc home in 24 hours with HH, IV abx and wound vacs - finalizing the set up for home use now Result Diagram: 08/13/18 0501 08/13/18 0501 Results 24hrs Laboratory Tests Test 08/12/18 17:25 08/12/18 20:36 08/13/18 05:01 08/13/18 08:00 Bedside Glucose 112 100 118 White Blood Count 9.7 Red Blood Count 3.28 L Hemoglobin 9.0 L Hematocrit 27.7 L Mean Corpuscular 84.5 Volume Mean Corpuscular 27.4 L Hemoglobin Mean Corpuscular 32.5 Hemoglobin Concent Red Cell 16.1 H Distribution Width Platelet Count 228 Mean Platelet Volume 12.2 H Immature 0.500 H Granulocytes % Neutrophils % 59.8 Lymphocytes % 24.1 Monocytes % 7.4 Eosinophils % 6.9 Basophils % 1.3 Nucleated Red Blood 0.0 Cells % Immature 0.050 H Granulocytes # Neutrophils # 5.8 Lymphocytes # 2.4 Monocytes # 0.7 Eosinophils # 0.7 H Basophils # 0.1 Nucleated Red Blood 0.0 Cells # Sodium Level 144 Potassium Level 3.4 L Chloride Level 116 H Carbon Dioxide Level 25 Anion Gap 3 L Blood Urea Nitrogen 21 H Creatinine 0.89 Est Glomerular > 60 Filtrat Rate mL/min Glucose Level 93 Calcium Level 8.2 L Phosphorus Level 4.1 Magnesium Level 1.8 Test 08/13/18 13:12 Bedside Glucose 157 Exam/Review of Systems Exam Vitals Vital Signs Date Temp Pulse Resp B/P (MAP) Pulse Ox O2 O2 Flow FiO2 Time Delivery Rate 08/13/18 98.0 88 18 147/79 99 13:17 (101) 08/12/18 Room Air 01:50 Intake and Output 08/12/18 08/12/18 08/13/18 1515:00 23:00 07:00 IntakeIntake Total 1110 ml 300 ml 100 ml OutputOutput Total 400 ml BalanceBalance 710 ml 300 ml 100 ml Results Results 24hrs Laboratory Tests Test 08/12/18 17:25 08/12/18 20:36 08/13/18 05:01 08/13/18 08:00 Bedside Glucose 112 100 118 White Blood Count 9.7 Red Blood Count 3.28 L Hemoglobin 9.0 L Hematocrit 27.7 L Mean Corpuscular 84.5 Volume Mean Corpuscular 27.4 L Hemoglobin Mean Corpuscular 32.5 Hemoglobin Concent Red Cell 16.1 H Distribution Width Platelet Count 228 Mean Platelet Volume 12.2 H Immature 0.500 H Granulocytes % Neutrophils % 59.8 Lymphocytes % 24.1 Monocytes % 7.4 Eosinophils % 6.9 Basophils % 1.3 Nucleated Red Blood 0.0 Cells % Immature 0.050 H Granulocytes # Neutrophils # 5.8 Lymphocytes # 2.4 Monocytes # 0.7 Eosinophils # 0.7 H Basophils # 0.1 Nucleated Red Blood 0.0 Cells # Sodium Level 144 Potassium Level 3.4 L Chloride Level 116 H Carbon Dioxide Level 25 Anion Gap 3 L Blood Urea Nitrogen 21 H Creatinine 0.89 Est Glomerular > 60 Filtrat Rate mL/min Glucose Level 93 Calcium Level 8.2 L Phosphorus Level 4.1 Magnesium Level 1.8 Test 08/13/18 13:12 Bedside Glucose 157 Medications Medication Current Medications IV Flush (NS 3 ml) 3 ml PER PROTOCOL IV ; Start 07/21/18 at 20:30 Ondansetron HCl (Zofran Inj) 4 mg Q6H PRN IV NAUSEA/VOMITING Last administered on 08/07/18 19:42; Admin Dose 4 MG; Start 07/21/18 at 20:30 Acetaminophen (Tylenol Tab) 650 mg Q6H PRN PO .PAIN 1-3 OR TEMP Last administered on 08/09/18 14:32; Admin Dose 650 MG; Start 07/21/18 at 20:30 Morphine Sulfate (morphine) 2 mg Q4H PRN IV .SEVERE PAIN 7-10; Start 07/21/18 at 20:30 Bisacodyl (Dulcolax) 5 mg DAILY PRN PO .CONSTIPATION Last administered on 07/24/18 16:17; Admin Dose 5 MG; Start 07/21/18 at 20:30 Carvedilol (Coreg) 25 mg BID PO Last administered on 08/13/18 08:03; Admin Dose 25 MG; Start 07/21/18 at 23:00 Nifedipine (Procardia Xl) 60 mg DAILY PO Last administered on 08/13/18 08:03; Admin Dose 60 MG; Start 07/22/18 at 09:00 Zinc Sulfate (Zinc Sulfate) 220 mg DAILY PO Last administered on 08/13/18 08:03; Admin Dose 220 MG; Start 07/22/18 at 09:00 Atorvastatin Calcium (Lipitor) 40 mg HS PO Last administered on 08/12/18 20:38; Admin Dose 40 MG; Start 07/21/18 at 23:21 Insulin Aspart (Novolog Insulin Pen) NOVOLOG *MILD* ALGORITHM WITH MEALS BEDTIME SC Last administered on 08/13/18 13:14; Admin Dose 1 UNIT; Start 07/22/18 at 08:00 Miscellaneous Information 1 ea NOTE XX ; Start 07/22/18 at 04:30 Glucose (Glutose) 15 gm Q15M PRN PO DECREASED GLUCOSE; Start 07/22/18 at 04:30 Glucose (Glutose) 22.5 gm Q15M PRN PO DECREASED GLUCOSE; Start 07/22/18 at 04:30 Dextrose (D50w Syringe) 25 ml Q15M PRN IV DECREASED GLUCOSE; Start 07/22/18 at 04:30 Dextrose (D50w Syringe) 50 ml Q15M PRN IV DECREASED GLUCOSE; Start 07/22/18 at 04:30 Glucagon (Glucagen) 1 mg Q15M PRN IM DECREASED GLUCOSE; Start 07/22/18 at 04:30 Glucose (Glutose) 15 gm Q15M PRN BUCCAL DECREASED GLUCOSE; Start 07/22/18 at 04:30 Gentamicin Sulfate (Gentamicin 0.1% Oint) 1 applic HS TOP Last administered on 07/29/18 23:15; Admin Dose 1 APPLIC; Start 07/22/18 at 21:00 Multi-Ingredient Ointment (Eucerin Cream) 1 applic BID TOP Last administered on 08/13/18 08:04; Admin Dose 1 APPLIC; Start 07/22/18 at 22:00 Insulin Glargine (Lantus) 9 units DAILY@2000 SC Last administered on 08/10/18 21:20; Admin Dose 9 UNITS; Start 07/25/18 at 20:00 Tigecycline 50 mg/ Sodium Chloride 100 ml @ 200 mls/hr Q12H IVPB Last administered on 08/13/18 08:02; Admin Dose 200 MLS/HR; Start 07/25/18 at 20:00 Sodium Biphosphate/ Sodium Phosphate (Fleet Enema) 133 ml DAILY PRN MA CONSTIPATION Last administered on 08/07/18at 12:37; Admin Dose 133 ML; Start 07/26/18 at 13:00 Alteplase, Recombinant (Cathflo (Activase)) 2 mg MAY REPEAT X1 PRN CATHETER IF CATHETER REMAINS OCCULUDED Last administered on 08/02/18 22:47; Admin Dose 2 MG; Start 08/02/18 at 21:30 Docusate Sodium (Colace) 100 mg BID PO Last administered on 08/13/18 08:02; Admin Dose 100 MG; Start 08/04/18 at 21:00 Metronidazole 100 ml @ 100 mls/hr Q8 IVPB Last administered on 08/13/18 14:07; Admin Dose 100 MLS/HR; Start 08/09/18 at 14:00 Ceftriaxone Sodium 50 ml @ 100 mls/hr Q24H IVPB Last administered on 08/12/18 14:12; Admin Dose 100 MLS/HR; Start 08/09/18 at 14:00 Mupirocin (Bactroban) 1 applic BID TOP Last administered on 08/11/18 09:45; Admin Dose 1 APPLIC; Start 08/10/18 at 21:00 Sodium Hypochlorite (Dakins Diluted (40)) 1 applic BID TP Last administered on 08/11/18 09:46; Admin Dose 1 APPLIC; Start 08/10/18 at 21:00 Citric Acid/ Sodium Citrate (Bicitra) 30 ml BID PO Last administered on 08/13/18 08:02; Admin Dose 30 ML; Start 08/11/18 at 09:00; Status Hold JOSE ESCOBAR August 13, 2018 14:58
[2018-08-13] MEDS: CEFTRIAXONE 2 GM/50 ML (PMX) 50 ML IVPB SCH (15:27)
[2018-08-13 20:00] VITALS: BP 122/66; PULSE 87; RESP 18
[2018-08-13] MEDS: INSULIN GLARGINE [LANTus] (100 UNITS/ML) SYG SC SCH (20:00)
[2018-08-13] MEDS: ATORVASTATIN 40 MG TAB PO SCH (20:43)
[2018-08-13] MEDS: GENTAMICIN 0.1% 15 GM OINT TOP SCH (20:49)
[2018-08-14 01:57] VITALS: BP 121/68; PULSE 78; RESP 18
[2018-08-14] MEDS: metroNIDAZOLE 500 MG/NS (PMX) 100 ML IVPB SCH (05:30)
[2018-08-14] MEDS: INSULIN ASPART [NOVOLOG] 3 ML PEN SC SCH (08:00)
[2018-08-14] MEDS: TIGECYCLINE 50 MG in SOD CHLORIDE 0.9% 100 ML IVPB SCH (08:22)
[2018-08-14] MEDS: ZINC SULFATE 220 MG CAP PO SCH (08:24)
[2018-08-14] MEDS: DOCUSATE SODIUM 100 MG CAP PO SCH (08:24)
[2018-08-14] MEDS: NIFEdipine (XL) 60 MG TAB PO SCH (08:25)
[2018-08-14] MEDS: MUPIROCIN 2% 22 GM OINT TOP SCH (08:25)
[2018-08-14] MEDS: EUCERIN 113 GM CR TOP SCH (08:26)
--- NOTE | 2018-08-14 08:30 | PN ---
DATE: 08/14/2018 SUBJECTIVE: The patient is stable. No events overnight. No fevers, chills, nausea, vomiting. OBJECTIVE: VITAL SIGNS: Blood pressure is 121/68, respiration 18, pulse 78, temperature 97.5. HEENT: Head is normocephalic. NECK: Supple. HEART: Regular rate. LUNGS: Show diminished breath sounds at the base. ABDOMEN: Soft, nontender to palpation without rebound or guarding. EXTREMITIES: Negative for clubbing, cyanosis, no edema. The patient has dressing clean, dry, intact . DERMATOLOGIC: No rashes. MUSCULOSKELETAL: No joint effusion. NEUROLOGIC: No change in exam. MEDICATIONS: Have been reviewed. LABORATORY DATA: Has been reviewed. ASSESSMENT AND PLAN: 1. Nonoliguric acute kidney injury on top of chronic kidney disease with previous baseline creatinin e of 1.3 mg/dL. Etiology of acute kidney injury is secondary to hemodynamics. Renal function is imp roved. Continue current treatment plan, supportive care, renally dose all medication. 2. Hyperkalemia, resolved. 3. Metabolic acidosis, resolved. Will discontinue Bicitra. 4. Anemia. Monitor hemoglobin and hematocrit levels. 5. Mineral bone disorder. Monitor calcium and phosphorus levels. 6. Bilateral gangrenous toe with osteomyelitis. The patient is status post wound VAC. Continue to monitor. Follow up with podiatry. 7. Diabetes. Continue current insulin regimen. 8. History of cerebrovascular accident. Dictated By: PARI TRAN DO NR/NTS Conf#: [id number] DID#: [id number] CC: MELISSA MORRISSEY MD;*EndCC*
[2018-08-14] MEDS: DAKINS 0.0125%(1/40) 473 ML SOLUTION TP SCH (09:00)
--- NOTE | 2018-08-14 10:08 | DS ---
Date/Time of Note Date/Time of Note DATE: 08/14/18 TIME: 10:01 Discharge Summary Admission/Discharge Info Admit Date/Time July 21, 2018 at 20:31 Discharge Date/Time Discharge Diagnosis # Bilateral lower extremities gangrene/osteomyelitis- status post left trans metatarsal amputation/right fifth and fourth digits amputation and third digit debridement. Wound culture grew multidrug-resistant Acinetobacter, enterococcus, E. coli, Bacteroides -Continue Abx per ID -now recommending IV Zosyn and IV tigecycline -Per ID team all till 09/10/18 - perioperative management per podiatry, per discussion with podiatry team - again patient now with wound VAC back in place; at home will need to use wound VAC for 3 months total and get changes performed 3 times a week-Case management has set this up for home use now # DMII: Sugars are stable, A1c was 6.4. # hypertension: Stable # Chronic kidney disease stage III: Creatinine appears at baseline. # Chronic normocytic anemia: Stable # History of stroke # History of urinary retention: We will need to confirm this with the patient. This could be autonomic dysfunction. Obtain urinalysis. # History of adjustment disorder/acute stress disorder Patient Condition: Stable Procedures DATE OF OPERATION: 07/30/2018 SURGEON: Maximino Davis DPM SHEET METAL JOURNEYMAN: David Rice MD PREOPERATIVE DIAGNOSES: 1. Left foot gangrene. 2. Left foot ulceration, plantar aspect with extensive tissue loss. 3. Osteomyelitis bilateral feet. 4. Right foot third toe amputation. 5. Right third toe ulceration with bone exposure, suspect osteomyelitis. 6. Gangrene, right foot fourth and fifth toes. 7. History of partial amputation of right third toe. 8. Osteomyelitis, right foot 5th metatarsal. 9. Diabetes. POSTOPERATIVE DIAGNOSES: 1. Left foot gangrene. 2. Left foot ulceration, plantar aspect with extensive tissue loss. 3. Osteomyelitis bilateral feet. 4. Right foot third toe amputation. 5. Right third toe ulceration with bone exposure, suspect osteomyelitis. 6. Gangrene, right foot fourth and fifth toes. 7. History of partial amputation of right third toe. 8. Osteomyelitis, right foot 5th metatarsal. 9. Diabetes. PROCEDURES PERFORMED: 1. Right foot fifth ray amputation. 2. Right foot fourth toe amputation, metatarsophalangeal joint. 3. Right foot third toe excisional debridement of bone, 1 x 2 cm. 4. Left foot transmetatarsal amputation of metatarsals 2, 3, 4 and 5. 5. Excisional debridement of left hallux ulceration skin, subcutaneous tissue and bone 3 x 4 cm. 6. Excisional debridement of right plantar ulceration 15 x 3 cm necrotic skin, subcutaneous tissue, ligament, muscle. 7. Excisional debridement of left plantar ulceration 15 x 4 cm necrotic skin, subcutaneous tissue, ligament and muscle. 8. Application of Integra bilayer 105 cm2 to bilateral feet. 9. Application of wound VAC to bilateral feet, greater than 100 cm2. PATHOLOGY: 1. Bone cultures, bone from the metatarsal, left foot. 2. Amputated gangrenous toes. Hx of Present Illness 48-year-old female who was admitted previously to [facility] with bilateral osteomyelitis of the lower extremities who presents today with abnormal labs. Patient was treated for bilateral osteomyelitis and for extensive diabetic ulcerations and tissue loss of the bilateral feet. She was recommended to have amputation performed by podiatry however patient refused this. She was treated with antibiotics and and with home health and antibiotics. Patient was having outpatient blood work done and she was told that her white blood cells were abnormal so she was advised to come into the emergency department by her PCP. Patient at the current time denies any pain in her feet. She does state that she has noticed some discharge from her feet when they have done the wrapping changes. She is now agreeable to amputation. Of note patient also reports that she has noticed necrosis of her left pinky of her hand. Hospital Course Patient was admitted and seen by multiple specialists during his hospital stay including podiatry, infectious disease, renal, vascular disease teams. Patient apparently previously had received vasopressors and developed digital ischemia who recovered but developed gangrene of toes and finger who was referred to hospital for evaluation of leukocytosis. Found to have OM of feet as well. Patient's wound cultures from the lower extremity feet area shows polymicrobial growth bilaterally. Patient underwent extensive operation by podiatry team including amputation and debridement (see above for full details of operative report). Afterwards she continued wound care, wound VAC per podiatry recommendations, antibiotics and therapy. Her A1c was 6.4 and her sugars were stable with the adjustments made to the insulin regimen. Regarding her infections, she received wound care as mentioned above and her leukocytosis improved. She is back at baseline status, vital signs are stable, tolerating diet. After getting clearance from the healthcare economics consultant teams patient will be discharged home today in improved condition. We have set up home health nursing for the patient as she will need IV antibiotics IV Zosyn and IV tigecycline until September 10, 2018, this is also been set up for home use. The wound VAC has also been placed and appropriate care for this will be performed by nursing staff at patient's home as she will need the wound VAC for approximately 3 months with changes made 3 times a week to the wound VAC. See below for full list of discharge medications. Home Meds Active Scripts Sodium Hypochlorite (Di-Dak-Anais) 473 Ml Solution, 1 APPLIC TP BID for 10 Days, #1 1 Refill Prov:DANNY ARCHULETA MD 07/15/18 Lanolin/Mineral Oil (Thera-Derm Lotion) 236 Ml Lotion, 1 APPLIC TOP BID for 14 Days, #14 1 Refill Prov:DANNY ARCHULETA MD 07/15/18 Gentamicin Sulfate* (Gentamicin Sulfate* Oint) 0.1% - 30 Gm Oint..gm., 1 APPLIC TOP BID for 14 Days, #30 1 Refill Prov:DANNY ARCHULETA MD 07/15/18 Collagenase* (Santyl*) 30 Gm Oint..gm., 1 APPLIC TOP BID for 10 Days, #20 2 Refills Prov:DANNY ARCHULETA MD 07/15/18 Ascorbic Acid (Vitamin C) 250 Mg Tab, 250 MG PO DAILY for 30 Days, #14 TAB Prov:DANNY ARCHULETA MD 07/15/18 Zinc Sulfate* (Zinc Sulfate*) 220 Mg Cap, 220 MG PO DAILY for 14 Days, #30 CAP Prov:DANNY ARCHULETA MD 07/15/18 Citric Acid/Sodium Citrate* (Bicitra* (PEDIATRIC)) 1 Meq/Ml Soln, 30 ML PO BID for 14 Days, #30 1 Refill Prov:DANNY ARCHULETA MD 07/15/18 Acetaminophen* (Tylenol*) 325 Mg Tablet, 650 MG PO Q6H PRN for .PAIN 1-3 OR TEMP for 14 Days, TAB Prov:DANNY ARCHULETA MD 07/15/18 Carvedilol* (Carvedilol*) 25 Mg Tablet, 25 MG PO BID for 10 Days, #20 TAB Prov:DANNY ARCHULETA MD 07/15/18 Nifedipine* (Nifedipine ER*) 60 Mg Tablet.sa, 60 MG PO DAILY, #60 TAB.SA Prov:CIPRIANOANEL 02/09/18 Bethanechol Chloride* (Bethanechol Chloride*) 10 Mg Tablet, 10 MG PO TID, #90 TAB 1 Refill Prov:CIPRIANOANEL 02/09/18 Aspirin* (Aspirin* EC) 81 Mg Tablet.dr, 81 MG PO DAILY for 90 Days, #90 TAB 5 Re fills Prov:BRET PARIKH MD 02/05/18 Metformin Hcl (Glucophage) 500 Mg Tablet, 1000 MG NGT BID WITH MEALS for 60 Days, #120 TAB 5 Refills Prov:BRET PARIKH MD 02/05/18 Atorvastatin* (Atorvastatin*) 40 Mg Tablet, 40 MG PO HS for 90 Days, #90 TAB 5 Refills Prov:BRET PARIKH MD 02/05/18 Follow-up Plan FOLLOW UP WITH YOUR PCP AND SPRAY FOAM INSTALLER IN 1-2 WEEKS Primary Care Provider Mitul Cornejo MD Time spent on discharge: > 30 minutes Pending Labs Laboratory Tests Test 08/13/18 13:12 08/13/18 17:36 08/13/18 20:41 08/14/18 05:06 Bedside 157 88 109 Glucose mg/dL (70-220) mg/dL (70-220) mg/dL (70-220) White Blood 10.2 Count 10^3/ul (4.8-1 0.8) Red Blood 3.04 Count 10^6/ul (4.20- 5.40) Hemoglobin 8.3 g/dl (12.0-16. 0) Hematocrit 25.8 % (37.0-47.0) Mean 84.9 Corpuscular fl (82.0-101.0 Volume ) Mean 27.3 Corpuscular pg (29.0-33.0) Hemoglobin Mean 32.2 Corpuscular g/dl (32.0-37. Hemoglobin Conc 0) ent Red Cell 16.2 Distribution % (11.5-14.5) Width Platelet Count 219 10^3/UL (140-4 15) Mean Platelet 11.9 Volume fl (7.4-10.4) Immature 0.500 Granulocytes % % (0.001-0.429 ) Neutrophils % 62.0 % (39.0-77.0) Lymphocytes % 22.1 % (15.0-51.0) Monocytes % 7.6 % (0.0-11.0) Eosinophils % 6.6 % (0.0-7.0) Basophils % 1.2 % (0.0-2.0) Nucleated Red 0.0 Blood Cells % /100WBC (0.0-0 .0) Immature 0.050 Granulocytes # 10^3/ul (0.0-0 .031) Neutrophils # 6.3 10^3/ul (1.6-7 .5) Lymphocytes # 2.2 10^3/ul (0.8-2 .9) Monocytes # 0.8 10^3/ul (0.3-0 .9) Eosinophils # 0.7 10^3/ul (0.0-0 .5) Basophils # 0.1 10^3/ul (0.0-0 .1) Nucleated Red 0.0 Blood Cells # 10^3/ul (0.0-0 .0) Sodium Level 143 mmol/L (135-14 4) Potassium 3.8 Level mmol/L (3.5-5. 1) Chloride Level 112 mmol/L (97-110 ) Carbon Dioxide 27 Level mmol/L (21-31) Anion Gap 4 (5-13) Blood Urea 23 Nitrogen mg/dl (7-20) Creatinine 1.01 mg/dl (0.44-1. 00) Est Glomerular 59 Filtrat mL/min (>60) Rate mL/min Glucose Level 97 mg/dl (70-220) Calcium Level 7.9 mg/dl (8.4-10. 2) Phosphorus 4.1 Level mg/dl (2.5-4.9 ) Magnesium 1.8 Level mg/dl (1.7-2.5 ) Test 08/14/18 08:09 Bedside 117 Glucose mg/dL (70-220) JOSE ESCOBAR August 14, 2018 10:08
== END 2018-08-14 10:20 | disposition home health service (06) | DRG 240 ==
LOC: E/R 18:07 → 2NE 20:31 → EDBEDREQ 21:00 → CANRESERV 21:25
PROVIDERS: ADMIT Family Medicine; ATTEND Hospitalist
PROC: 0Y6N0ZC Detachment at Left Foot, Partial 3rd Ray, Open Approach (ICD-10-PCS; 2018-07-30)
PROC: 0Y6N0ZD Detachment at Left Foot, Partial 4th Ray, Open Approach (ICD-10-PCS; 2018-07-30)
PROC: 0Y6N0ZF Detachment at Left Foot, Partial 5th Ray, Open Approach (ICD-10-PCS; 2018-07-30)
PROC: 0QBR0ZZ Excision of Left Toe Phalanx, Open Approach (ICD-10-PCS; 2018-07-30)
PROC: 0LDW0ZZ Extraction of Left Foot Tendon, Open Approach (ICD-10-PCS; 2018-07-30)
PROC: 0Y6X0Z0 Detachment at Right 5th Toe, Complete, Open Approach (ICD-10-PCS; 2018-07-30)
PROC: 0Y6V0Z0 Detachment at Right 4th Toe, Complete, Open Approach (ICD-10-PCS; 2018-07-30)
PROC: 0HRNXK3 Replacement of Left Foot Skin with Nonautologous Tissue Substitute, Full Thickness, External Approach (ICD-10-PCS; 2018-07-30)
PROC: 0KBV0ZZ Excision of Right Foot Muscle, Open Approach (ICD-10-PCS; 2018-07-30)
PROC: 0HRMXK3 Replacement of Right Foot Skin with Nonautologous Tissue Substitute, Full Thickness, External Approach (ICD-10-PCS; 2018-07-30)
PROC: 0Y6N0ZB Detachment at Left Foot, Partial 2nd Ray, Open Approach (ICD-10-PCS; principal; 2018-07-30 18:30)
DX: E11.52 Type 2 diabetes mellitus with diabetic peripheral angiopathy with gangrene (principal); M86.171 Other acute osteomyelitis, right ankle and foot; M86.671 Other chronic osteomyelitis, right ankle and foot; E87.2 Acidosis; L97.525 Non-pressure chronic ulcer of other part of left foot with muscle involvement without evidence of necrosis; L97.516 Non-pressure chronic ulcer of other part of right foot with bone involvement without evidence of necrosis; N17.9 Acute kidney failure, unspecified; E11.69 Type 2 diabetes mellitus with other specified complication; I12.9 Hypertensive chronic kidney disease with stage 1 through stage 4 chronic kidney disease, or unspecified chronic kidney disease; N18.3 Chronic kidney disease, stage 3 (moderate); E11.621 Type 2 diabetes mellitus with foot ulcer; E87.5 Hyperkalemia; N31.9 Neuromuscular dysfunction of bladder, unspecified; D63.8 Anemia in other chronic diseases classified elsewhere; B96.6 Bacteroides fragilis [B. fragilis] as the cause of diseases classified elsewhere; B95.2 Enterococcus as the cause of diseases classified elsewhere; B96.20 Unspecified Escherichia coli [E. coli] as the cause of diseases classified elsewhere; Z16.24 Resistance to multiple antibiotics; Z86.73 Personal history of transient ischemic attack (TIA), and cerebral infarction without residual deficits
CPT/HCPCS: 36415; 71045; 80048; 80053; 80061; 81001; 82306; 82962; 83036; 83605; 83735; 84100; 84436; 84443; 84479; 85025; 85610; 85651; 85730; 86140; 87070; 87075; 87081; 87102; 87116; 88304; 88311; 93005; 96365; 96375; 97110; 97162; 97530; 97542; J0690; J0692; J0696; J1170; J1815; J2250; J2405; J2997; J3010; J3243; J3370; J7030; L4386

== ENCOUNTER 2018-08-18 17:46 | Inpatient (IN) | payer BC ==
[~2018-08-18] VITALS: Ht 167.6 cm; Wt 65.0 kg
[2018-08-18] MEDS ORDERED: TIGECYCLINE 50 MG in SOD CHLORIDE 0.9% 100 ML IVPB STA (17:55)
[2018-08-18] MEDS ORDERED: PIPER-TAZO 3.375 GM IV (PMX) 100 ML IVPB ONE (18:00)
[2018-08-18] MEDS ORDERED: SUCR1TAB56 PO (19:30)
[2018-08-18] MEDS ORDERED: ONDANSETRON 4 MG INJ IV PRN (20:00)
[2018-08-18] MEDS ORDERED: ACETAMINOPHEN 325 MG TAB PO PRN ×2 (20:00→20:30)
[2018-08-18] MEDS ORDERED: POTASSIUM CHLORIDE (SR) 20 MEQ TAB PO STA (20:09)
--- NOTE | 2018-08-18 20:27 | HP ---
Date/Time of Note Date/Time of Note DATE: 08/18/18 TIME: 20:27 Assessment/Plan VTE Prophylaxis SCD applied (from Nsg): No SCD contraindicated: other (lower extremity wounds) Pharmacological prophylaxis: NA/contraindicated Pharm contraindication: surgical contra Lines/Catheters IV Catheter Type (from Nrsg): Central Line Central line still needed: Yes (shelter abx) Assessment/Plan Hospital Course #1 bilateral lower extremities gangrene/osteomyelitis- status post left transmetatarsal amputation/right fifth and fourth digits amputation and third digit debridement. Wound culture grew multidrug-resistant Acinetobacter, enterococcus, E. coli, Bacteroides -Patient apparently had issues with her antibiotics via home health. Continue Abx per ID IV Zosyn and IV tigecycline -Per ID team all till 09/10/18. Will consult ID again. -Currently patient is on wound VAC podiatry has been consulted. Further management as per podiatry. # 2 DMII: Sugars are stable, A1c was 6.4. Will hold metformin at the current time in case 23 procedure performed. # 3hypertension: Stable we will continue home medications # 4 Chronic kidney disease stage III: Creatinine appears at baseline. #5 Chronic normocytic anemia: Stable #6 History of stroke:Stable no deficit at the current time will hold aspirin for possible procedure, continue carvedilol statin #7 History of adjustment disorder/acute stress disorder DVT GI prophylaxis: hold mechanical and pharmalogical prophylaxis until seen by podiatry, GI prophylaxis indicated Further treatment strategy will be implemented as per the clinical course. Result Diagram: 08/18/18 1803 08/18/18 1803 Results 24hrs Laboratory Tests Test 08/18/18 18:03 White Blood Count 10.8 Red Blood Count 3.32 L Hemoglobin 9.0 L Hematocrit 28.3 L Mean Corpuscular Volume 85.2 Mean Corpuscular Hemoglobin 27.1 L Mean Corpuscular Hemoglobin Concent 31.8 L Red Cell Distribution Width 16.8 H Platelet Count 276 # Mean Platelet Volume 11.2 H Immature Granulocytes % 0.500 H Neutrophils % 62.7 Lymphocytes % 19.6 Monocytes % 8.5 Eosinophils % 7.8 H Basophils % 0.9 Nucleated Red Blood Cells % 0.0 Immature Granulocytes # 0.050 H Neutrophils # 6.8 Lymphocytes # 2.1 Monocytes # 0.9 Eosinophils # 0.8 H Basophils # 0.1 Nucleated Red Blood Cells # 0.0 Sodium Level 141 Potassium Level 2.9 *L Chloride Level 110 Carbon Dioxide Level 26 Anion Gap 5 Blood Urea Nitrogen 24 H Creatinine 0.97 Est Glomerular Filtrat Rate mL/min > 60 Glucose Level 130 Calcium Level 8.1 L HPI/ROS Admit Date/Time Admit Date/Time Hx of Present Illness Chief complaint: Did not get antibiotics from home health at home also not show up 48-year-old female who has been treated for osteomyelitis with IV antibiotics presents from home. Home health care provider did not show up to give the patient her dose of antibiotics. Family is extremely frustrated and do not want to continue with this home health service. The patient describes no significant pain or fevers. She did not receive any of her doses of antibiotics today. She currently has a wound VAC on her bilateral feet. Allergies: NKDA ROS Const: As per HPI Eyes : No pain discharge or redness or change in visual acuity ENT: No pain, sore throat, congestion, congestion, dysphagia or discharge Respiratory: No shortness of breath, cough, sputum, wheezing, or pleuritic pain Cardiovascular: No chest pain, palpitation, PND, or edema GI : no change in appetite, abdominal pain, nausea, vomiting, diarrhea, constipation, or change in the color his stool Genitourinary: No dysuria, hematuria, flank pain , discharge or CVA tenderness Musculoskeletal: As per HPI Skin: As per HPI Neuro: No headache, dizziness, syncope, seizure, focal weakness Endocrine: No polyuria, polydipsia, temperature intolerance Psych: No hallucination, depression, anxiety or suicidal ideation PMH/Family/Social Past Medical History 1. Chronic osteomyelitis/gangrene of both feet. Cont antibiotics/ wound care. 2. Type 2 diabetes 3 CKD 4. Anemia 5.. History of stroke 6. Hypertension 7. Urinary retention neurogenic bladder?/Autonomic dysfunction? 8. Adjustment disorder cute stress disorder, appreciate behavioral health assistance 9. Kidney stones Medications Current Medications Ondansetron HCl (Zofran Inj) 4 mg BRIDGE ORDER PRN IV NAUSEA/VOMITING; Start 08/18/18 at 20:00; Stop 08/19/18 at 19:59 Acetaminophen (Tylenol Tab) 650 mg ER BRIDGE PRN PO .MILD PAIN 1-3 OR TEMP; Start 08/18/18 at 20:00; Stop 08/19/18 at 19:59 Tigecycline 50 mg/ Sodium Chloride 100 ml @ 200 mls/hr Q12 IVPB ; Start 08/18/18 at 21:00; Status UNV Piperacillin Sod/ Tazobactam Sod 100 ml @ 200 mls/hr Q6 IVPB ; Start 08/19/18 at 00:00; Status UNV IV Flush (NS 3 ml) 3 ml PER PROTOCOL IV ; Start 08/18/18 at 20:30; Status UNV Acetaminophen (Tylenol Tab) 650 mg Q6H PRN PO .PAIN 1-3 OR TEMP; Start 08/18/18 at 20:30; Status UNV Acetaminophen/ Hydrocodone Bitart ([place] (5/325)) 1 tab Q6H PRN PO .MOD PAIN 4- 6; Start 08/18/18 at 20:30; Status UNV Docusate Sodium (Colace) 100 mg Q12H PRN PO .CONSTIPATION; Start 08/18/18 at 20:30; Status UNV Bisacodyl (Dulcolax) 5 mg DAILY PRN PO .CONSTIPATION; Start 08/18/18 at 20:30; Status UNV Coded Allergies: No Known Allergy (Unverified , 08/18/18) Past Surgical History Debridement of bilateral feet that exposed wound VAC, ureteral stent placement and removal Family History Significant Family History: no pertinent family hx Social History Alcohol Use: none Smoking Status: Never smoker Drug Use: none Exam/Review of Systems Vital Signs Vitals Vital Signs Date Temp Pulse Resp B/P (MAP) Pulse Ox O2 O2 Flow FiO2 Time Delivery Rate 08/18/18 98.3 87 16 127/74 100 Room Air 18:35 (91) Exam Exam General: Patient is a pleasant female currently lying in bed in no acute distress HEENT: Atraumatic, normocephalic. The pupils are equal, round and reactive. Extraocular motor are intact Neck: Supple with full range of motion. No rigidity or meningismus Chest: Nontender Lungs: Clear to auscultation bilaterally no crackles rales or wheezing Heart: Normal S1-S2, Regular rhythm and rate. No murmur, S3, or S4 Abdomen: Soft , nontender, nondistended , bowel sounds are present. No guarding no rebound tenderness , No masses or organomegaly. No costovertebral temporal angle mass Extremities: Bilateral lower extremity wound dressings clean dry and intact, connected to wound VAC Skin: Bilateral lower extremity wound dressings clean dry and intact, connected to wound VAC Neurologic: Normal mental status, speech normal, cranial nerves II through XII are intact, motor and sensory are intact, MELISSA MORRISSEY August 18, 2018 20:27
[2018-08-18] MEDS ORDERED: NACL 0.9% 3 ML SYG IV SCH (20:30)
[2018-08-18] MEDS ORDERED: DOCUSATE SODIUM 100 MG CAP PO PRN (20:30)
[2018-08-18] MEDS ORDERED: BISACODYL (EC) 5 MG TAB PO PRN (20:30)
[2018-08-18] MEDS ORDERED: HYDROCODONE/APAP (5/325) TAB PO PRN (20:30)
--- NOTE | 2018-08-18 20:41 | ERD ---
ER Documentation Chief Complaint Chief Complaint BIB RA FROM HOME FOR WOUND INFECTION, ATB TX IV BY HOME HEALTH HPI 48-year-old female who has been treated for osteomyelitis with IV antibiotics presents from home. Home health care provider did not show up to give the patient her dose of antibiotics. Family is extremely frustrated and do not want to continue with this home health service. The patient describes no significant pain or fevers. She did not receive any of her doses of antibiotics today. Remainder of HPI is somewhat limited. ROS All systems reviewed and are negative except as per history of present illness. Medications Home Meds Active Scripts Sucralfate* (Carafate*) 1 Gm Tab, 1 GM PO WITH MEALS, #20 TAB Prov:YUNIEL ELLSWORTH MD 08/18/18 Sodium Hypochlorite (Di-Dak-Anais) 473 Ml Solution, 1 APPLIC TP BID for 10 Days, #1 1 Refill Prov:DANNY ARCHULETA MD 07/15/18 Lanolin/Mineral Oil (Thera-Derm Lotion) 236 Ml Lotion, 1 APPLIC TOP BID for 14 Days, #14 1 Refill Prov:DANNY ARCHULETA MD 07/15/18 Gentamicin Sulfate* (Gentamicin Sulfate* Oint) 0.1% - 30 Gm Oint..gm., 1 APPLIC TOP BID for 14 Days, #30 1 Refill Prov:DANNY ARCHULETA MD 07/15/18 Collagenase* (Santyl*) 30 Gm Oint..gm., 1 APPLIC TOP BID for 10 Days, #20 2 Refills Prov:DANNY ARCHULETA MD 07/15/18 Ascorbic Acid (Vitamin C) 250 Mg Tab, 250 MG PO DAILY for 30 Days, #14 TAB Prov:DANNY ARCHULETA MD 07/15/18 Zinc Sulfate* (Zinc Sulfate*) 220 Mg Cap, 220 MG PO DAILY for 14 Days, #30 CAP Prov:DANNY ARCHULETA MD 07/15/18 Citric Acid/Sodium Citrate* (Bicitra* (PEDIATRIC)) 1 Meq/Ml Soln, 30 ML PO BID for 14 Days, #30 1 Refill Prov:DANNY ARCHULETA MD 07/15/18 Acetaminophen* (Tylenol*) 325 Mg Tablet, 650 MG PO Q6H PRN for .PAIN 1-3 OR TEMP for 14 Days, TAB Prov:DANNY ARCHULETA MD 07/15/18 Carvedilol* (Carvedilol*) 25 Mg Tablet, 25 MG PO BID for 10 Days, #20 TAB Prov:DANNY ARCHULETA MD 07/15/18 Nifedipine* (Nifedipine ER*) 60 Mg Tablet.sa, 60 MG PO DAILY, #60 TAB.SA Prov:ANEL COTA 02/09/18 Bethanechol Chloride* (Bethanechol Chloride*) 10 Mg Tablet, 10 MG PO TID, #90 TAB 1 Refill Prov:ANEL COTA 02/09/18 Aspirin* (Aspirin* EC) 81 Mg Tablet.dr, 81 MG PO DAILY for 90 Days, #90 TAB 5 Refills Prov:BRET PARIKH MD 02/05/18 Metformin Hcl (Glucophage) 500 Mg Tablet, 1000 MG NGT BID WITH MEALS for 60 Days, #120 TAB 5 Refills Prov:BRET PARIKH MD 02/05/18 Atorvastatin* (Atorvastatin*) 40 Mg Tablet, 40 MG PO HS for 90 Days, #90 TAB 5 Refills Prov:BRET PARIKH MD 02/05/18 Allergies Allergies: Coded Allergies: No Known Allergy (Unverified , 08/18/18) PMhx/Soc History of Surgery: Yes (Kidney stone removal) Anesthesia Reaction: No Hx Neurological Disorder: Yes (History of stroke) Hx Respiratory Disorders: No Hx Cardiac Disorders: No Hx Psychiatric Problems: No Hx Miscellaneous Medical Probl: Yes (chronic osteomyelitis/gangrene B feet, DM II, CKD, Anemia, h/o stroke, HTN,) Hx Alcohol Use: No Hx Substance Use: No Hx Tobacco Use: No Smoking Status: Never smoker FmHx Family History: diabetes Physical Exam Vitals Vital Signs Date Temp Pulse Resp B/P (MAP) Pulse Ox O2 O2 Flow FiO2 Time Delivery Rate 08/18/18 98.3 87 16 127/74 100 Room Air 18:35 (91) 08/18/18 98.7 92 19 123/82 100 Room Air 17:47 (96) 08/18/18 98.7 96 19 125/73 100 17:47 (90) Physical Exam General: Well developed, well nourished, no acute distress Head: Normocephalic, atraumatic. Eyes: EOM intact ENT: Moist mucous membranes Neck: Full ROM Respiratory: No respiratory distress Cardiovascular: Well perfused distally Abdominal: Nondistended : Deferred MSK: No edema, no unilateral swelling BLE wound dressing are CDI Neurologic: Alert and oriented Skin: No rash Psych: Normal mood Result Diagram: 08/18/18 1803 08/18/18 1803 Results 24 hrs Laboratory Tests Test 08/18/18 18:03 White Blood Count 10.8 10^3/ul Red Blood Count 3.32 10^6/ul Hemoglobin 9.0 g/dl Hematocrit 28.3 % Mean Corpuscular Volume 85.2 fl Mean Corpuscular Hemoglobin 27.1 pg Mean Corpuscular Hemoglobin Concent 31.8 g/dl Red Cell Distribution Width 16.8 % Platelet Count 276 10^3/UL Mean Platelet Volume 11.2 fl Immature Granulocytes % 0.500 % Neutrophils % 62.7 % Lymphocytes % 19.6 % Monocytes % 8.5 % Eosinophils % 7.8 % Basophils % 0.9 % Nucleated Red Blood Cells % 0.0 /100WBC Immature Granulocytes # 0.050 10^3/ul Neutrophils # 6.8 10^3/ul Lymphocytes # 2.1 10^3/ul Monocytes # 0.9 10^3/ul Eosinophils # 0.8 10^3/ul Basophils # 0.1 10^3/ul Nucleated Red Blood Cells # 0.0 10^3/ul Sodium Level 141 mmol/L Potassium Level 2.9 mmol/L Chloride Level 110 mmol/L Carbon Dioxide Level 26 mmol/L Anion Gap 5 Blood Urea Nitrogen 24 mg/dl Creatinine 0.97 mg/dl Est Glomerular Filtrat Rate mL/min > 60 mL/min Glucose Level 130 mg/dl Calcium Level 8.1 mg/dl Current Medications Medications Dose Sig/[place] Start Time Status Last (Trade) Ordered Route PRN Stop Time Admin Dose Reason Admin Piperacillin 100 ml @ ONCE ONCE 08/18/18 DC 08/18/18 Sod/ 200 mls/hr IVPB 18:00 18:33 Tazobactam 08/18/18 18:29 Sod Tigecycline 100 ml @ ONCE STAT 08/18/18 DC 08/18/18 50 mg/ 200 mls/hr IVPB 17:55 20:07 Sodium 08/18/18 18:24 Chloride Ondansetron 4 mg BRIDGE ORDER 08/18/18 HCl (Zofran PRN IV 20:00 Inj) NAUSEA/VOMITI 08/19/18 19:59 NG 650 mg ER BRIDGE 08/18/18 Acetaminophen PRN PO 20:00 (Tylenol .MILD PAIN 08/19/18 19:59 Tab) 1-3 OR TEMP Potassium 40 meq ONCE STAT 08/18/18 DC Chloride PO 20:09 (Klor-Con 20) 08/18/18 20:10 Tigecycline 100 ml @ Q12 IVPB 08/18/18 UNV 50 mg/ 200 mls/hr 21:00 Sodium Chloride Piperacillin 100 ml @ Q6 IVPB 08/19/18 UNV Sod/ 200 mls/hr 00:00 Tazobactam Sod IV Flush 3 ml PER 08/18/18 (NS 3 ml) PROTOCOL IV 20:30 650 mg Q6H PRN 08/18/18 Acetaminophen PO .PAIN 1-3 20:30 (Tylenol OR TEMP Tab) 1 tab Q6H PRN 08/18/18 UNV Acetaminophen PO .MOD PAIN 20:30 / 4-6 Hydrocodone Bitart ([place] (5/325)) Docusate 100 mg Q12H PRN 08/18/18 Sodium PO 20:30 (Colace) .CONSTIPATION Bisacodyl 5 mg DAILY PRN 08/18/18 (Dulcolax) PO 20:30 .CONSTIPATION 650 mg Q6H PRN 08/18/18 UNV Acetaminophen PO .PAIN 1-3 20:30 (Tylenol OR TEMP Tab) Ascorbic 250 mg DAILY PO 08/19/18 UNV Acid 09:00 (Vitamin C) Aspirin 81 mg DAILY PO 08/19/18 UNV (Halfprin) 09:00 40 mg HS PO 08/18/18 UNV Atorvastatin 21:00 Calcium (Lipitor) Bethanechol 10 mg TID PO 08/18/18 UNV Chloride 21:00 (Urecholine) Carvedilol 25 mg BID PO 08/18/18 UNV (Coreg) 21:00 Citric 30 meq BID PO 08/18/18 UNV Acid/ Sodium 21:00 Citrate (Bicitra Liquid (Ped)) Collagenase 1 applic BID TOP 08/18/18 UNV (Santyl) 21:00 Gentamicin 1 applic BID TOP 08/18/18 UNV Sulfate 21:00 (Gentamicin 0.1% Oint) Mineral Oil 1 applic BID TOP 08/18/18 UNV (Eucerin 21:00 Lotion) Metformin 1,000 mg BID WITH 08/19/18 UNV HCl MEALS NGT 08:00 (Glucophage) Nifedipine 60 mg DAILY PO 08/19/18 UNV (Procardia 09:00 Xl) Sodium 1 applic BID TP 08/18/18 UNV Hypochlorite 21:00 (Dakins Diluted (40)) Sucralfate 1 gm WITH MEALS 08/19/18 UNV (Carafate) PO 08:00 Zinc 220 mg DAILY PO 08/19/18 UNV Sulfate 09:00 (Zinc Sulfate) Discontinue ONCE ONCE 08/18/18 UNV Miscellaneous current oral XX 20:30 sulfonylur... 08/18/18 20:31 Information (* Miscellaneous Pharmacy Order) Diagnostic 1 ea 02 XX 08/19/18 UNV Test (Pha) 02:00 (Accu-Chek) ONCE ONCE 08/18/18 UNV Miscellaneous HYPOGLYCEMIA XX 20:30 PROTOCOL 08/18/18 20:31 Information w... (* Miscellaneous Pharmacy Order) Insulin NOVOLOG WITH MEALS 08/18/18 UNV Aspart *MILD* BEDTIME SC 21:00 (Novolog ALGORITHM Insulin Pen) Discontinue ONCE ONCE 08/18/18 UNV Miscellaneous all previ... XX 20:30 08/18/18 20:31 Information (* Miscellaneous Pharmacy Order) Procedures/MDM LAB INTERPRETATION: I reviewed the laboratory testing and it shows hypokalemia MEDICAL DECISION MAKING: Patient did not receive her dose of Zosyn and tigecycline. The patient is refusing to continue home health care services. For this reason the patient will be admitted for further management. Her tobacco warehouse manager Dr. Davis was notified and agrees with hospitalization. ER COURSE: * Patient given doses of antibiotics here in the emergency room. Potassium orally repleted. Patient is stable. CONSULTATION: None DISPOSITION PLAN: Accepting care team and consultations: I discussed the current laboratory data, diagnostic imaging and emergency care provided. Admitting team: Dr. Walden Admitting team indication: Insurance directed Departure Diagnosis: Primary Impression: Foot osteomyelitis, right Osteomyelitis type: unspecified type Qualified Codes: M86.9 - Osteomyelitis, unspecified Additional Impressions: Foot osteomyelitis, left Osteomyelitis type: unspecified type Qualified Codes: M86.9 - Osteomyeliti s, unspecified Hypokalemia Condition: Stable Patient Instructions: Gerd (Adult) Additional Instructions: Llame al doctor nombrado mateojo (Referral Sources) MAANA y lesli ashleigh NATE PARA DENTRO DE ASHLEIGH SEMANA. Dgale a la secretaria que nosotros le instruimos hacer esta nate.Avise o llame si szymanski condicin se empeora antes de la nate. YUNIEL ELLSWORTH MD August 18, 2018 20:41
[2018-08-18] MEDS: BETHANECHOL 10 MG TAB PO SCH (21:00)
[2018-08-18] MEDS ORDERED: INSULIN ASPART [NOVOLOG] 3 ML PEN SC SCH (21:00)
[2018-08-18] MEDS: GENTAMICIN 0.1% 15 GM OINT TOP SCH (21:00)
[2018-08-18] MEDS ORDERED: MINERAL OIL 240 ML LOT TOP SCH (21:00)
--- NOTE | 2018-08-18 21:48 | CONS ---
Assessment/Plan Assessment/Plan Assessment/Plan (Daily) Bilateral diabetic ulcers Hx of gangrene Osteomyelitis b/l feet DM2 with peripheral neuropathy Hx of right foot digit amputations Hx of left foot TMA Plan Discussed with patient with further surgical intervention of bilateral feet. Patient will undergo further debridement and grafting tomorrow. Keep NPO after midnight tonight and consent to be prepared. Discussed with patient that there will be staged interventions in order purse limb salvage at this time. IV abx per recommendations and recommend ID consult. Recommend non weight bearing to bilateral lower extremities. Consultation Date/Type/Reason Admit Date/Time Date/Time of Note DATE: 08/18/18 TIME: 21:45 Hx of Present Illness 48 y/o diabetic F patient with previous history of extensive gangrene to bilateral feet then underwent debridement, right foot digit amputation and left foot TMA with graft and wound VAC application, now presents with same presentation but reports she has not received abx from her home health service. Patient denies constitutional symptoms at this time. ROS Neg except for HPI Past Medical History Diabetes type 2, hypertension, history of sepsis, bacteremia and has history of stroke, neurogenic bladder, urinary retention. Home Meds Active Scripts Sucralfate* (Carafate*) 1 Gm Tab, 1 GM PO WITH MEALS, #20 TAB Prov:YUNIEL ELLSWORTH MD 08/18/18 Sodium Hypochlorite (Di-Dak-Anais) 473 Ml Solution, 1 APPLIC TP BID for 10 Days, #1 1 Refill Prov:DANNY ARCHULETA MD 07/15/18 Lanolin/Mineral Oil (Thera-Derm Lotion) 236 Ml Lotion, 1 APPLIC TOP BID for 14 Days, #14 1 Refill Prov:DANNY ARCHULETA MD 07/15/18 Gentamicin Sulfate* (Gentamicin Sulfate* Oint) 0.1% - 30 Gm Oint..gm., 1 APPLIC TOP BID for 14 Days, #30 1 Refill Prov:DANNY ARCHULETA MD 07/15/18 Collagenase* (Santyl*) 30 Gm Oint..gm., 1 APPLIC TOP BID for 10 Days, #20 2 Refills Prov:DANNY ARCHULETA MD 07/15/18 Ascorbic Acid (Vitamin C) 250 Mg Tab, 250 MG PO DAILY for 30 Days, #14 TAB Prov:DANNY ARCHULETA MD 07/15/18 Zinc Sulfate* (Zinc Sulfate*) 220 Mg Cap, 220 MG PO DAILY for 14 Days, #30 CAP Prov:DANNY ARCHULETA MD 07/15/18 Citric Acid/Sodium Citrate* (Bicitra* (PEDIATRIC)) 1 Meq/Ml Soln, 30 ML PO BID for 14 Days, #30 1 Refill Prov:DANNY ARCHULETA MD 07/15/18 Acetaminophen* (Tylenol*) 325 Mg Tablet, 650 MG PO Q6H PRN for .PAIN 1-3 OR TEMP for 14 Days, TAB Prov:DANNY ARCHULETA MD 07/15/18 Carvedilol* (Carvedilol*) 25 Mg Tablet, 25 MG PO BID for 10 Days, #20 TAB Prov:DANNY ARCHULETA MD 07/15/18 Nifedipine* (Nifedipine ER*) 60 Mg Tablet.sa, 60 MG PO DAILY, #60 TAB.SA Prov:ANEL COTA 02/09/18 Bethanechol Chloride* (Bethanechol Chloride*) 10 Mg Tablet, 10 MG PO TID, #90 TAB 1 Refill Prov:ANEL COTA 02/09/18 Aspirin* (Aspirin* EC) 81 Mg Tablet.dr, 81 MG PO DAILY for 90 Days, #90 TAB 5 Refills Prov:BRET PARIKH MD 02/05/18 Metformin Hcl (Glucophage) 500 Mg Tablet, 1000 MG NGT BID WITH MEALS for 60 Days, #120 TAB 5 Refills Prov:BRET PARIKH MD 02/05/18 Atorvastatin* (Atorvastatin*) 40 Mg Tablet, 40 MG PO HS for 90 Days, #90 TAB 5 Refills Prov:BRET PARIKH MD 02/05/18 Medications Current Medications Ondansetron HCl (Zofran Inj) 4 mg BRIDGE ORDER PRN IV NAUSEA/VOMITING; Start 08/18/18 at 20:00; Stop 08/19/18 at 19:59 Acetaminophen (Tylenol Tab) 650 mg ER BRIDGE PRN PO .MILD PAIN 1-3 OR TEMP; Start 08/18/18 at 20:00; Stop 08/19/18 at 19:59 Tigecycline 50 mg/ Sodium Chloride 100 ml @ 200 mls/hr Q12 IVPB ; Start 07/22 12/09 at 21:00; Status UNV Piperacillin Sod/ Tazobactam Sod 100 ml @ 200 mls/hr Q6 IVPB ; Start 08/19/18 at 00:00; Status UNV IV Flush (NS 3 ml) 3 ml PER PROTOCOL IV ; Start 08/18/18 at 20:30 Acetaminophen (Tylenol Tab) 650 mg Q6H PRN PO .PAIN 1-3 OR TEMP; Start 08/18/18 at 20:30 Acetaminophen/ Hydrocodone Bitart ([place] (5/325)) 1 tab Q6H PRN PO .MOD PAIN 4- 6; Start 08/18/18 at 20:30; Status UNV Docusate Sodium (Colace) 100 mg Q12H PRN PO .CONSTIPATION; Start 08/18/18 at 20:30 Bisacodyl (Dulcolax) 5 mg DAILY PRN PO .CONSTIPATION; Start 08/18/18 at 20:30 Acetaminophen (Tylenol Tab) 650 mg Q6H PRN PO .PAIN 1-3 OR TEMP; Start 08/18/18 at 20:30; Status UNV Ascorbic Acid (Vitamin C) 250 mg DAILY PO ; Start 08/19/18 at 09:00; Status UNV Aspirin (Halfprin) 81 mg DAILY PO ; Start 08/19/18 at 09:00; Status UNV Atorvastatin Calcium (Lipitor) 40 mg HS PO ; Start 08/18/18 at 21:00; Status UNV Bethanechol Chloride (Urecholine) 10 mg TID PO ; Start 08/18/18 at 21:00; Status UNV Carvedilol (Coreg) 25 mg BID PO ; Start 08/18/18 at 21:00; Status UNV Citric Acid/ Sodium Citrate (Bicitra Liquid (Ped)) 30 meq BID PO ; Start 08/18/18 at 21:00; Status UNV Collagenase (Santyl) 1 applic BID TOP ; Start 08/18/18 at 21:00; Status UNV Gentamicin Sulfate (Gentamicin 0.1% Oint) 1 applic BID TOP ; Start 08/18/18 at 21:00; Status UNV Mineral Oil (Eucerin Lotion) 1 applic BID TOP ; Start 08/18/18 at 21:00; Status UNV Metformin HCl (Glucophage) 1,000 mg BID WITH MEALS NGT ; Start 08/19/18 at 08:00; Status UNV Nifedipine (Procardia Xl) 60 mg DAILY PO ; Start 08/19/18 at 09:00; Status UNV Sodium Hypochlorite (Dakins Diluted ()) 1 applic BID TP ; Start 08/18/18 at 21:00; Status UNV Sucralfate (Carafate) 1 gm WITH MEALS PO ; Start 08/19/18 at 08:00; Status UNV Zinc Sulfate (Zinc Sulfate) 220 mg DAILY PO ; Start 08/19/18 at 09:00; Status UNV Miscellaneous Information (* Miscellaneous Pharmacy Order) Discontinue current oral sulfonylur... ONCE ONCE XX ; Start 08/18/18 at 20:30; Stop 08/18/18 at 20:31; Status UNV Diagnostic Test (Pha) (Accu-Chek) 1 ea 02 XX ; Start 08/19/18 at 02:00; Status UNV Miscellaneous Information (* Miscellaneous Pharmacy Order) HYPOGLYCEMIA PROTOCOL w... ONCE ONCE XX ; Start 08/18/18 at 20:30; Stop 08/18/18 at 20:31; Status UNV Insulin Aspart (Novolog Insulin Pen) NOVOLOG *MILD* ALGORITHM WITH MEALS BEDTIME SC ; Start 08/18/18 at 21:00; Status UNV Miscellaneous Information (* Miscellaneous Pharmacy Order) Discontinue all previ... ONCE ONCE XX ; Start 08/18/18 at 20:30; Stop 08/18/18 at 20:31; Status UNV Allergies: Coded Allergies: No Known Allergy (Unverified , 08/18/18) Past Surgical History Right foot digit amputations, left foot TMA, multiple debridements and application of skin allografts Family History Significant Family History: no pertinent family hx Social History Smoking Status: Never smoker Exam/Review of Systems Exam Vitals Vital Signs Date Temp Pulse Resp B/P (MAP) Pulse Ox O2 O2 Flow FiO2 Time Delivery Rate 08/18/18 97 16 139/78 100 Room Air 21:35 (98) 08/18/18 98.3 18:35 Exam No proximal streaking No strikethrough drainage noted to the dressings. Wound VAC operational at 125mmHg low continuous therapy minimal serosanguinous drainage absent protective sensations. Results Result Diagram: 08/18/18 1803 08/18/18 1803 Results 24hrs Laboratory Tests Test 08/18/18 18:03 White Blood Count 10.8 Red Blood Count 3.32 L Hemoglobin 9.0 L Hematocrit 28.3 L Mean Corpuscular Volume 85.2 Mean Corpuscular Hemoglobin 27.1 L Mean Corpuscular Hemoglobin Concent 31.8 L Red Cell Distribution Width 16.8 H Platelet Count 276 # Mean Platelet Volume 11.2 H Immature Granulocytes % 0.500 H Neutrophils % 62.7 Lymphocytes % 19.6 Monocytes % 8.5 Eosinophils % 7.8 H Basophils % 0.9 Nucleated Red Blood Cells % 0.0 Immature Granulocytes # 0.050 H Neutrophils # 6.8 Lymphocytes # 2.1 Monocytes # 0.9 Eosinophils # 0.8 H Basophils # 0.1 Nucleated Red Blood Cells # 0.0 Sodium Level 141 Potassium Level 2.9 *L Chloride Level 110 Carbon Dioxide Level 26 Anion Gap 5 Blood Urea Nitrogen 24 H Creatinine 0.97 Est Glomerular Filtrat Rate mL/min > 60 Glucose Level 130 Calcium Level 8.1 L Magnesium Level 1.7 Medications Medication Current Medications Ondansetron HCl (Zofran Inj) 4 mg BRIDGE ORDER PRN IV NAUSEA/VOMITING; Start 08/18/18 at 20:00; Stop 08/19/18 at 19:59 Acetaminophen (Tylenol Tab) 650 mg ER BRIDGE PRN PO .MILD PAIN 1-3 OR TEMP; Start 08/18/18 at 20:00; Stop 08/19/18 at 19:59 Tigecycline 50 mg/ Sodium Chloride 100 ml @ 200 mls/hr Q12 IVPB ; Start 08/18/18 at 21:00; Status UNV Piperacillin Sod/ Tazobactam Sod 100 ml @ 200 mls/hr Q6 IVPB ; Start 08/19/18 at 00:00; Status UNV IV Flush (NS 3 ml) 3 ml PER PROTOCOL IV ; Start 08/18/18 at 20:30 Acetaminophen (Tylenol Tab) 650 mg Q6H PRN PO .PAIN 1-3 OR TEMP; Start 08/18/18 at 20:30 Acetaminophen/ Hydrocodone Bitart ([place] (5/325)) 1 tab Q6H PRN PO .MOD PAIN 4- 6; Start 08/18/18 at 20:30; Status UNV Docusate Sodium (Colace) 100 mg Q12H PRN PO .CONSTIPATION; Start 08/18/18 at 20:30 Bisacodyl (Dulcolax) 5 mg DAILY PRN PO .CONSTIPATION; Start 08/18/18 at 20:30 Acetaminophen (Tylenol Tab) 650 mg Q6H PRN PO .PAIN 1-3 OR TEMP; Start 08/18/18 at 20:30; Status UNV Ascorbic Acid (Vitamin C) 250 mg DAILY PO ; Start 08/19/18 at 09:00; Status UNV Aspirin (Halfprin) 81 mg DAILY PO ; Start 08/19/18 at 09:00; Status UNV Atorvastatin Calcium (Lipitor) 40 mg HS PO ; Start 08/18/18 at 21:00; Status UNV Bethanechol Chloride (Urecholine) 10 mg TID PO ; Start 08/18/18 at 21:00; Status UNV Carvedilol (Coreg) 25 mg BID PO ; Start 08/18/18 at 21:00; Status UNV Citric Acid/ Sodium Citrate (Bicitra Liquid (Ped)) 30 meq BID PO ; Start 08/18/18 at 21:00; Status UNV Collagenase (Santyl) 1 applic BID TOP ; Start 08/18/18 at 21:00; Status UNV Gentamicin Sulfate (Gentamicin 0.1% Oint) 1 applic BID TOP ; Start 08/18/18 at 21:00; Status UNV Mineral Oil (Eucerin Lotion) 1 applic BID TOP ; Start 08/18/18 at 21:00; Status UNV Metformin HCl (Glucophage) 1,000 mg BID WITH MEALS NGT ; Start 08/19/18 at 08:00; Status UNV Nifedipine (Procardia Xl) 60 mg DAILY PO ; Start 08/19/18 at 09:00; Status UNV Sodium Hypochlorite (Dakins Diluted ()) 1 applic BID TP ; Start 08/18/18 at 21:00; Status UNV Sucralfate (Carafate) 1 gm WITH MEALS PO ; Start 08/19/18 at 08:00; Status UNV Zinc Sulfate (Zinc Sulfate) 220 mg DAILY PO ; Start 08/19/18 at 09:00; Status UNV Miscellaneous Information (* Miscellaneous Pharmacy Order) Discontinue current oral sulfonylur... ONCE ONCE XX ; Start 08/18/18 at 20:30; Stop 08/18/18 at 20:31; Status UNV Diagnostic Test (Pha) (Accu-Chek) 1 XX ; Start 08/19/18 at 02:00; Status UNV Miscellaneous Information (* Miscellaneous Pharmacy Order) HYPOGLYCEMIA PROTOCOL w... ONCE ONCE XX ; Start 08/18/18 at 20:30; Stop 08/18/18 at 20:31; Status UNV Insulin Aspart (Novolog Insulin Pen) NOVOLOG *MILD* ALGORITHM WITH MEALS BEDTIME SC ; Start 08/18/18 at 21:00; Status UNV Miscellaneous Information (* Miscellaneous Pharmacy Order) Discontinue all previ... ONCE ONCE XX ; Start 08/18/18 at 20:30; Stop 08/18/18 at 20:31; Status UNV ANANT BROUSSARD DPM August 18, 2018 21:48
[2018-08-18] MEDS: CITRIC ACID/NA CITRATE 30 ML CUP PO SCH (22:00)
[2018-08-18] MEDS: DAKINS 0.0125%(1/40) 473 ML SOLUTION TP SCH (22:00)
[2018-08-18] MEDS: COLLAGENASE 5 GM (UD JAR) TOP SCH (22:00)
[2018-08-18 22:30] VITALS: BP 137/68; PULSE 81; RESP 16
[2018-08-18] MEDS ORDERED: GLUCAGON 1 MG INJ IM PRN (22:30)
[2018-08-18] MEDS ORDERED: DEXTROSE 50% 50 ML SYRINGE IV PRN ×2 (22:30)
[2018-08-18] MEDS ORDERED: GLUCOSE GEL 15 GRAM TUBE BUCCAL PRN (22:30)
[2018-08-18] MEDS ORDERED: GLUCOSE GEL 15 GRAM TUBE PO PRN ×2 (22:30)
[2018-08-18] MEDS: ATORVASTATIN 40 MG TAB PO SCH (22:55)
[2018-08-18 23:29] VITALS: Ht 167.6 cm; Wt 65.0 kg
[2018-08-19] MEDS: DEXTROSE 5%-0.45% NACL 1,000 ML IV SCH ×3 (00:39→17:45)
[2018-08-19] MEDS: PIPER-TAZO 3.375 GM IV (PMX) 100 ML IVPB SCH ×4 (00:39→17:45)
[2018-08-19] MEDS: ACCU-CHEK XX SCH (01:42)
[2018-08-19 02:28] VITALS: BP 133/76; PULSE 74; RESP 16
[2018-08-19] MEDS: INSULIN ASPART [NOVOLOG] 3 ML PEN SC SCH ×5 (05:00→21:00)
[2018-08-19] MEDS: SUCRALFATE 1 GM TAB PO SCH ×3 (08:00→17:45)
[2018-08-19] MEDS ORDERED: metFORMIN 500 MG TAB NGT SCH (08:00)
[2018-08-19 08:07] VITALS: BP 153/78; PULSE 77; RESP 16
[2018-08-19] MEDS: GENTAMICIN 0.1% 15 GM OINT TOP SCH ×2 (09:00→21:00)
[2018-08-19] MEDS: DAKINS 0.0125%(1/40) 473 ML SOLUTION TP SCH ×2 (09:00→21:00)
[2018-08-19] MEDS: ASCORBIC ACID 250 MG TAB PO SCH (09:00)
[2018-08-19] MEDS: CITRIC ACID/NA CITRATE 30 ML CUP PO SCH ×2 (09:00→21:00)
[2018-08-19] MEDS: COLLAGENASE 5 GM (UD JAR) TOP SCH ×2 (09:00→21:00)
[2018-08-19] MEDS: BETHANECHOL 10 MG TAB PO SCH ×3 (09:00→21:00)
[2018-08-19] MEDS ORDERED: ASPIRIN (EC) 81 MG TAB PO SCH (09:00)
[2018-08-19] MEDS: ZINC SULFATE 220 MG CAP PO SCH (09:00)
[2018-08-19] MEDS: TIGECYCLINE 50 MG in SOD CHLORIDE 0.9% 100 ML IVPB SCH ×2 (09:23→21:40)
[2018-08-19] MEDS: NIFEdipine (XL) 60 MG TAB PO SCH (09:23)
--- NOTE | 2018-08-19 13:21 | CONS ---
Assessment/Plan Assessment/Plan Hospital Course (Demo Recall) Readmitted for debridement, alert, feels good, no fevers Antimicrobials: Tygacil, Zosyn Microbiology: Wound culture grew multidrug-resistant Acinetobacter, enterococcus, E. coli, Bacteroides Physical examination: Well-developed well-nourished middle-aged woman who is alert in no distress. Head atraumatic normocephalic sclera nonicteric. Neck is supple. Chest rise symmetrical, breath sounds clear. Heart: S1-S2. Abdomen soft bowel sounds present. Extremities with bilateral lower extremities dressing clean dry and intact Assessment: 1. Bilateral lower extremities gangrene/Osteomyelitis, status post left transmetatarsal amputation/right fifth and fourth digits amputation and third digit debridement==> Pathology + acute OM R foot 2. Chronic kidney disease, history of hemodialysis 3. Diabetes 4. RUE PICC Plan: Remains stable, continue antibiotics, plan for debridement Consultation Date/Type/Reason Admit Date/Time August 18, 2018 at 19:38 Initial Consult Date Type of Consult id Date/Time of Note DATE: 08/19/18 TIME: 13:19 Exam/Review of Systems Exam Vitals Vital Signs Date Temp Pulse Resp B/P (MAP) Pulse Ox O2 O2 Flow FiO2 Time Delivery Rate 08/19/18 98.4 77 16 153/78 99 Room Air 08:07 (103) Intake and Output 08/18/18 08/18/18 08/19/18 1515:00 23:00 07:00 IntakeIntake Total 520 ml BalanceBalance 520 ml Results Result Diagram: 08/19/18 0447 08/19/18 0447 Results 24hrs Laboratory Tests Test 08/18/18 18:03 08/18/18 22:59 08/19/18 04:47 08/19/18 05:50 White Blood Count 10.8 8.5 # Red Blood Count 3.32 L 3.04 L Hemoglobin 9.0 L 8.2 L Hematocrit 28.3 L 26.3 L Mean Corpuscular 85.2 86.5 Volume Mean Corpuscular 27.1 L 27.0 L Hemoglobin Mean Corpuscular 31.8 L 31.2 L Hemoglobin Concent Red Cell 16.8 H 17.1 H Distribution Width Platelet Count 276 # 233 Mean Platelet Volume 11.2 H 11.4 H Immature 0.500 H 0.400 Granulocytes % Neutrophils % 62.7 62.2 Lymphocytes % 19.6 19.1 Monocytes % 8.5 8.1 Eosinophils % 7.8 H 8.9 H Basophils % 0.9 1.3 Nucleated Red Blood 0.0 0.0 Cells % Immature 0.050 H 0.030 Granulocytes # Neutrophils # 6.8 5.3 Lymphocytes # 2.1 1.6 Monocytes # 0.9 0.7 Eosinophils # 0.8 H 0.8 H Basophils # 0.1 0.1 Nucleated Red Blood 0.0 0.0 Cells # Sodium Level 141 141 Potassium Level 2.9 *L 3.5 Chloride Level 110 114 H Carbon Dioxide Level 26 24 Anion Gap 5 3 L Blood Urea Nitrogen 24 H 21 H Creatinine 0.97 0.91 Est Glomerular > 60 > 60 Filtrat Rate mL/min Glucose Level 130 106 Calcium Level 8.1 L 8.1 L Magnesium Level 1.7 Bedside Glucose 110 124 Total Bilirubin 0.4 Direct Bilirubin 0.00 Indirect Bilirubin 0.4 Aspartate Amino 32 Transf (AST/SGOT) Alanine 29 Aminotransferase (AL T/SGPT) Alkaline Phosphatase 74 Total Protein 6.0 L Albumin 2.5 L Globulin 3.50 H Albumin/Globulin 0.71 Ratio Test 08/19/18 09:22 Bedside Glucose 97 Medications Medication Current Medications Ondansetron HCl (Zofran Inj) 4 mg BRIDGE ORDER PRN IV NAUSEA/VOMITING; Start 08/18/18 at 20:00; Stop 08/19/18 at 19:59 Acetaminophen (Tylenol Tab) 650 mg ER BRIDGE PRN PO .MILD PAIN 1-3 OR TEMP; Start 08/18/18 at 20:00; Stop 08/19/18 at 19:59 Tigecycline 50 mg/ Sodium Chloride 100 ml @ 200 mls/hr Q12 IVPB Last administered on 08/19/18at 09:23; Admin Dose 200 MLS/HR; Start 08/19/18 at 09:00 Piperacillin Sod/ Tazobactam Sod 100 ml @ 200 mls/hr Q6 IVPB Last administered on 08/19/18at 12:22; Admin Dose 200 MLS/HR; Start 08/19/18 at 00:00 IV Flush (NS 3 ml) 3 ml PER PROTOCOL IV ; Start 08/18/18 at 20:30 Acetaminophen (Tylenol Tab) 650 mg Q6H PRN PO .PAIN 1-3 OR TEMP; Start 08/18/18 at 20:30 Acetaminophen/ Hydrocodone Bitart ([place] (5/325)) 1 tab Q6H PRN PO .MOD PAIN 4- 6; Start 08/18/18 at 20:30 Docusate Sodium (Colace) 100 mg Q12H PRN PO .CONSTIPATION; Start 08/18/18 at 20:30 Bisacodyl (Dulcolax) 5 mg DAILY PRN PO .CONSTIPATION; Start 08/18/18 at 20:30 Acetaminophen (Tylenol Tab) 650 mg Q6H PRN PO .PAIN 1-3 OR TEMP; Start 08/18/18 at 20:30 Ascorbic Acid (Vitamin C) 250 mg DAILY PO ; Start 08/19/18 at 09:00 Aspirin (Halfprin) 81 mg DAILY PO ; Start 08/19/18 at 09:00; Status Hold Atorvastatin Calcium (Lipitor) 40 mg HS PO Last administered on 08/18/18at 22:55; Admin Dose 40 MG; Start 08/18/18 at 21:00 Bethanechol Chloride (Urecholine) 10 mg TID PO ; Start 08/18/18 at 21:00 Carvedilol (Coreg) 25 mg BID PO Last administered on 08/19/18at 09:23; Admin Dose 25 MG; Start 08/18/18 at 21:00 Citric Acid/ Sodium Citrate (Bicitra) 30 ml BID PO ; Start 08/18/18 at 22:00 Collagenase (Santyl) 1 applic BID TOP ; Start 08/18/18 at 22:00 Gentamicin Sulfate (Gentamicin 0.1% Oint) 1 applic BID TOP ; Start 08/18/18 at 21:00 Metformin HCl (Glucophage) 1,000 mg BID WITH MEALS NGT ; Start 08/19/18 at 08:00; Status Hold Nifedipine (Procardia Xl) 60 mg DAILY PO Last administered on 08/19/18at 09:23; Admin Dose 60 MG; Start 08/19/18 at 09:00 Sodium Hypochlorite (Dakins Diluted ()) 1 applic BID TP ; Start 08/18/18 at 22:00 Sucralfate (Carafate) 1 gm WITH MEALS PO ; Start 08/19/18 at 08:00 Zinc Sulfate (Zinc Sulfate) 220 mg DAILY PO ; Start 08/19/18 at 09:00 Diagnostic Test (Pha) (Accu-Chek) 1 ea 02 XX ; Start 08/19/18 at 02:00 Miscellaneous Information 1 ea NOTE XX ; Start 08/18/18 at 22:30 Glucose (Glutose) 15 gm Q15M PRN PO DECREASED GLUCOSE; Start 08/18/18 at 22:30 Glucose (Glutose) 22.5 gm Q15M PRN PO DECREASED GLUCOSE; Start 08/18/18 at 22:30 Dextrose (D50w Syringe) 25 ml Q15M PRN IV DECREASED GLUCOSE; Start 08/18/18 at 22:30 Dextrose (D50w Syringe) 50 ml Q15M PRN IV DECREASED GLUCOSE; Start 08/18/18 at 22:30 Glucagon (Glucagen) 1 mg Q15M PRN IM DECREASED GLUCOSE; Start 08/18/18 at 22:30 Glucose (Glutose) 15 gm Q15M PRN BUCCAL DECREASED GLUCOSE; Start 08/18/18 at 22:30 Dextrose/Sodium Chloride 1,000 ml @ 80 mls/hr [id number] IV Last administered on 08/19/18at 00:39; Admin Dose 80 MLS/HR; Start 08/19/18 at 00:30 Insulin Aspart (Novolog Insulin Pen) NOVOLOG *MILD* ALGORI... Q4 SC ; Start 08/19/18 at 05:00 Mineral Oil (Eucerin Lotion) 1 applic BID TOP ; Start 08/19/18 at 09:32 SEBASTIAN BARRETO NP August 19, 2018 13:21
[2018-08-19 13:58] VITALS: BP 130/65; PULSE 76; RESP 18
[2018-08-19 14:00] VITALS: BP 135/74; PULSE 83; RESP 18
--- NOTE | 2018-08-19 16:20 | PN ---
Date/Time of Note Date/Time of Note DATE: 08/19/18 TIME: 16:16 Assessment/Plan VTE Prophylaxis Risk score (from Nsg)>0 risk: 4 SCD applied (from Nsg): Yes Pharmacological prophylaxis: NA/contraindicated Pharm contraindication: low risk/ambulating Lines/Catheters IV Catheter Type (from Nrsg): PICC Line Central line still needed: Yes Urinary Cath still in place: No Assessment/Plan Assessment/Plan 48 yo woman with history of diabetes, HTN, CKD presents with bilateral LE osteomyelitis and gangrene after failure of outpatient home health to deliver antibiotics. # bilateral lower extremities gangrene/osteomyelitis - status post left transmetatarsal amputation/right fifth and fourth digits amputation and third digit debridement. Wound culture grew multidrug-resistant Acinetobacter, enterococcus, E. coli, Bacteroides -Patient apparently had issues with her antibiotics via home health. Continue Abx per ID IV Zosyn and IV tigecycline -Per ID team all till 09/10/18. Will consult ID again. -Currently patient is on wound VAC podiatry has been consulted. Further management as per podiatry. # DMII: Sugars are stable, A1c was 6.4. Will hold metformin at the current time in case 23 procedure performed. # hypertension: Stable we will continue home medications # Chronic kidney disease stage III: Creatinine appears at baseline. # Chronic normocytic anemia: # History of stroke: no deficit at the current time will hold aspirin for possible procedure, continue carvedilol statin # History of adjustment disorder/acute stress disorder DVT GI prophylaxis: SCDs, GI prophylaxis indicated Result Diagram: 08/19/18 0447 08/19/18446 Subjective 24 Hr Interval Summary Free Text/Dictation No acute overnight events. Patient feeling well. Exam/Review of Systems Exam Vitals Vital Signs Date Temp Pulse Resp B/P (MAP) Pulse Ox O2 O2 Flow FiO2 Time Delivery Rate 08/19/18 98.6 83 18 135/74 100 Room Air 14:00 (94) Intake and Output 08/18/18 08/18/18 08/19/18 1515:00 23:00 07:00 IntakeIntake Total 520 ml BalanceBalance 520 ml Exam General: Patient is a pleasant woman currently lying in bed in no acute distress HEENT: Atraumatic, normocephalic. The pupils are equal, round and reactive. Extraocular motor are intact Neck: Supple with full range of motion. No rigidity or meningismus Chest: Nontender Lungs: Clear to auscultation bilaterally no crackles rales or wheezing Heart: Normal S1-S2, Regular rhythm and rate. No murmur, S3, or S4 Abdomen: Soft , nontender, nondistended , bowel sounds are present. No guarding no rebound tenderness , No masses or organomegaly. Extremities: Bilateral lower extremity wound dressings clean dry and intact Results Results 24hrs Laboratory Tests Test 08/18/18 18:03 08/18/18 22:59 08/19/18 04:47 08/19/18 05:50 White Blood Count 10.8 8.5 # Red Blood Count 3.32 L 3.04 L Hemoglobin 9.0 L 8.2 L Hematocrit 28.3 L 26.3 L Mean Corpuscular 85.2 86.5 Volume Mean Corpuscular 27.1 L 27.0 L Hemoglobin Mean Corpuscular 31.8 L 31.2 L Hemoglobin Concent Red Cell 16.8 H 17.1 H Distribution Width Platelet Count 276 # 233 Mean Platelet Volume 11.2 H 11.4 H Immature 0.500 H 0.400 Granulocytes % Neutrophils % 62.7 62.2 Lymphocytes % 19.6 19.1 Monocytes % 8.5 8.1 Eosinophils % 7.8 H 8.9 H Basophils % 0.9 1.3 Nucleated Red Blood 0.0 0.0 Cells % Immature 0.050 H 0.030 Granulocytes # Neutrophils # 6.8 5.3 Lymphocytes # 2.1 1.6 Monocytes # 0.9 0.7 Eosinophils # 0.8 H 0.8 H Basophils # 0.1 0.1 Nucleated Red Blood 0.0 0.0 Cells # Sodium Level 141 141 Potassium Level 2.9 *L 3.5 Chloride Level 110 114 H Carbon Dioxide Level 26 24 Anion Gap 5 3 L Blood Urea Nitrogen 24 H 21 H Creatinine 0.97 0.91 Est Glomerular > 60 > 60 Filtrat Rate mL/min Glucose Level 130 106 Calcium Level 8.1 L 8.1 L Magnesium Level 1.7 Bedside Glucose 110 124 Total Bilirubin 0.4 Direct Bilirubin 0.00 Indirect Bilirubin 0.4 Aspartate Amino 32 Transf (AST/SGOT) Alanine 29 Aminotransferase (AL T/SGPT) Alkaline Phosphatase 74 Total Protein 6.0 L Albumin 2.5 L Globulin 3.50 H Albumin/Globulin 0.71 Ratio Test 08/19/18 09:22 08/19/18 11:30 08/19/18 13:32 Bedside Glucose 97 86 Urine Test NEGATIVE Medications Medication Current Medications Ondansetron HCl (Zofran Inj) 4 mg BRIDGE ORDER PRN IV NAUSEA/VOMITING; Start 08/18/18 at 20:00; Stop 08/19/18 at 19:59 Acetaminophen (Tylenol Tab) 650 mg ER BRIDGE PRN PO .MILD PAIN 1-3 OR TEMP; Start 08/18/18 at 20:00; Stop 08/19/18 at 19:59 Tigecycline 50 mg/ Sodium Chloride 100 ml @ 200 mls/hr Q12 IVPB Last administered on 08/19/18at 09:23; Admin Dose 200 MLS/HR; Start 08/19/18 at 09:00 Piperacillin Sod/ Tazobactam Sod 100 ml @ 200 mls/hr Q6 IVPB Last administered on 08/19/18at 12:22; Admin Dose 200 MLS/HR; Start 08/19/18 at 00:00 IV Flush (NS 3 ml) 3 ml PER PROTOCOL IV ; Start 08/18/18 at 20:30 Acetaminophen (Tylenol Tab) 650 mg Q6H PRN PO .PAIN 1-3 OR TEMP; Start 08/18/18 at 20:30 Acetaminophen/ Hydrocodone Bitart ([place] (5/325)) 1 tab Q6H PRN PO .MOD PAIN 4- 6; Start 08/18/18 at 20:30 Docusate Sodium (Colace) 100 mg Q12H PRN PO .CONSTIPATION; Start 08/18/18 at 20:30 Bisacodyl (Dulcolax) 5 mg DAILY PRN PO .CONSTIPATION; Start 08/18/18 at 20:30 Acetaminophen (Tylenol Tab) 650 mg Q6H PRN PO .PAIN 1-3 OR TEMP; Start 08/18/18 at 20:30 Ascorbic Acid (Vitamin C) 250 mg DAILY PO ; Start 08/19/18 at 09:00 Aspirin (Halfprin) 81 mg DAILY PO ; Start 08/19/18 at 09:00; Status Hold Atorvastatin Calcium (Lipitor) 40 mg HS PO Last administered on 08/18/18at 22:55; Admin Dose 40 MG; Start 08/18/18 at 21:00 Bethanechol Chloride (Urecholine) 10 mg TID PO ; Start 08/18/18 at 21:00 Carvedilol (Coreg) 25 mg BID PO Last administered on 08/19/18at 09:23; Admin Dose 25 MG; Start 08/18/18 at 21:00 Citric Acid/ Sodium Citrate (Bicitra) 30 ml BID PO ; Start 08/18/18 at 22:00 Collagenase (Santyl) 1 applic BID TOP ; Start 08/18/18 at 22:00 Gentamicin Sulfate (Gentamicin 0.1% Oint) 1 applic BID TOP ; Start 08/18/18 at 21:00 Metformin HCl (Glucophage) 1,000 mg BID WITH MEALS NGT ; Start 08/19/18 at 08:00; Status Hold Nifedipine (Procardia Xl) 60 mg DAILY PO Last administered on 08/19/18at 09:23; Admin Dose 60 MG; Start 08/19/18 at 09:00 Sodium Hypochlorite (Dakins Diluted (40)) 1 applic BID TP ; Start 08/18/18 at 22:00 Sucralfate (Carafate) 1 gm WITH MEALS PO ; Start 08/19/18 at 08:00 Zinc Sulfate (Zinc Sulfate) 220 mg DAILY PO ; Start 08/19/18 at 09:00 Diagnostic Test (Pha) (Accu-Chek) 1 ea 02 XX ; Start 08/19/18 at 02:00 Miscellaneous Information 1 ea NOTE XX ; Start 08/18/18 at 22:30 Glucose (Glutose) 15 gm Q15M PRN PO DECREASED GLUCOSE; Start 08/18/18 at 22:30 Glucose (Glutose) 22.5 gm Q15M PRN PO DECREASED GLUCOSE; Start 08/18/18 at 22:30 Dextrose (D50w Syringe) 25 ml Q15M PRN IV DECREASED GLUCOSE; Start 08/18/18 at 22:30 Dextrose (D50w Syringe) 50 ml Q15M PRN IV DECREASED GLUCOSE; Start 08/18/18 at 22:30 Glucagon (Glucagen) 1 mg Q15M PRN IM DECREASED GLUCOSE; Start 08/18/18 at 22:30 Glucose (Glutose) 15 gm Q15M PRN BUCCAL DECREASED GLUCOSE; Start 08/18/18 at 22:30 Dextrose/Sodium Chloride 1,000 ml @ 80 mls/hr [id number] IV Last administered on 08/19/18at 00:39; Admin Dose 80 MLS/HR; Start 08/19/18 at 00:30 Insulin Aspart (Novolog Insulin Pen) NOVOLOG *MILD* ALGORI... Q4 SC ; Start 08/19/18 at 05:00 Mineral Oil (Eucerin Lotion) 1 applic BID TOP ; Start 08/19/18 at 09:32 ANGELA PERERA MD August 19, 2018 16:20
[2018-08-19 20:00] VITALS: BP 152/81; PULSE 86; RESP 17
[2018-08-19] MEDS: ATORVASTATIN 40 MG TAB PO SCH (21:39)
[2018-08-19] MEDS: MINERAL OIL 240 ML LOT TOP SCH (21:47)
[2018-08-20] VITALS (9 sets, daily range): BP systolic 132–158; BP diastolic 75–99; PULSE 75–87; RESP 17–25
[2018-08-20] MEDS: PIPER-TAZO 3.375 GM IV (PMX) 100 ML IVPB SCH ×3 (00:07→12:23)
[2018-08-20] MEDS: INSULIN ASPART [NOVOLOG] 3 ML PEN SC SCH ×5 (01:00→17:00)
[2018-08-20] MEDS: DEXTROSE 5%-0.45% NACL 1,000 ML IV SCH ×2 (01:30→12:24)
[2018-08-20] MEDS: ACCU-CHEK XX SCH (02:00)
[2018-08-20] MEDS: SUCRALFATE 1 GM TAB PO SCH ×3 (08:00→17:22)
[2018-08-20] MEDS: CITRIC ACID/NA CITRATE 30 ML CUP PO SCH ×2 (08:36→20:46)
[2018-08-20] MEDS: BETHANECHOL 10 MG TAB PO SCH ×3 (09:00→20:47)
[2018-08-20] MEDS: ZINC SULFATE 220 MG CAP PO SCH (09:00)
[2018-08-20] MEDS: DAKINS 0.0125%(1/40) 473 ML SOLUTION TP SCH ×2 (09:00→20:47)
[2018-08-20] MEDS: GENTAMICIN 0.1% 15 GM OINT TOP SCH ×2 (09:00→20:47)
[2018-08-20] MEDS: NIFEdipine (XL) 60 MG TAB PO SCH (09:00)
[2018-08-20] MEDS: COLLAGENASE 5 GM (UD JAR) TOP SCH ×2 (09:00→20:47)
[2018-08-20] MEDS: ASCORBIC ACID 250 MG TAB PO SCH (09:00)
[2018-08-20] MEDS: MINERAL OIL 240 ML LOT TOP SCH ×2 (09:22→20:47)
[2018-08-20] MEDS: TIGECYCLINE 50 MG in SOD CHLORIDE 0.9% 100 ML IVPB SCH ×2 (09:23→20:46)
--- NOTE | 2018-08-20 12:51 | CONS ---
Assessment/Plan Assessment/Plan Hospital Course (Demo Recall) Alert, feels good, at bedside, no fevers Antimicrobials: Tygacil, Zosyn Microbiology: Wound culture grew multidrug-resistant Acinetobacter, enterococcus, E. coli, Bacteroides Physical examination: Well-developed well-nourished middle-aged woman who is alert in no distress. Head atraumatic normocephalic sclera nonicteric. Neck is supple. Chest rise symmetrical, breath sounds clear. Heart: S1-S2. Abdomen soft bowel sounds present. Extremities with bilateral lower extremities dressing clean dry and intact Assessment: 1. Bilateral lower extremities gangrene/Osteomyelitis, status post left transmetatarsal amputation/right fifth and fourth digits amputation and third digit debridement==> Pathology + acute OM R foot 2. Chronic kidney disease, history of hemodialysis 3. Diabetes 4. RUE PICC Plan: Remains stable, change Zosyn to Flagyl and Rocephin, f/u podiatry rec-s==> staged debridement Consultation Date/Type/Reason Admit Date/Time August 18, 2018 at 19:38 Initial Consult Date Type of Consult id Date/Time of Note DATE: 08/20/18 TIME: 12:50 Exam/Review of Systems Exam Vitals Vital Signs Date Temp Pulse Resp B/P (MAP) Pulse Ox O2 O2 Flow FiO2 Time Delivery Rate 08/20/18 98.5 85 18 140/80 99 07:27 (100) 08/20/18 Room Air 02:00 Intake and Output 08/19/18 08/19/18 08/20/18 1515:00 23:00 07:00 IntakeIntake Total 680 ml 880 ml 850 ml BalanceBalance 680 ml 880 ml 850 ml Results Result Diagram: 08/20/18 0523 08/20/18 0523 Results 24hrs Laboratory Tests Test 08/19/18 13:32 08/19/18 17:46 08/19/18 21:37 08/20/18 01:26 Bedside Glucose 86 163 90 186 Test 08/20/18 05:23 08/20/18 05:35 08/20/18 09:24 08/20/18 12:23 White Blood Count 9.0 Red Blood Count 3.13 L Hemoglobin 8.5 L Hematocrit 27.4 L Mean Corpuscular 87.5 Volume Mean Corpuscular 27.2 L Hemoglobin Mean Corpuscular 31.0 L Hemoglobin Concent Red Cell 16.6 H Distribution Width Platelet Count 252 Mean Platelet Volume 11.6 H Immature 0.400 Granulocytes % Neutrophils % 61.7 Lymphocytes % 18.7 Monocytes % 8.7 Eosinophils % 9.5 H Basophils % 1.0 Nucleated Red Blood 0.0 Cells % Immature 0.040 H Granulocytes # Neutrophils # 5.5 Lymphocytes # 1.7 Monocytes # 0.8 Eosinophils # 0.9 H Basophils # 0.1 Nucleated Red Blood 0.0 Cells # Sodium Level 142 Potassium Level 3.2 L Chloride Level 115 H Carbon Dioxide Level 24 Anion Gap 3 L Blood Urea Nitrogen 23 H Creatinine 0.92 Est Glomerular > 60 Filtrat Rate mL/min Glucose Level 184 Calcium Level 8.0 L Phosphorus Level 4.2 Magnesium Level 1.7 Iron Level 35 Total Iron Binding 146 L Capacity Percent Iron 24 Saturation Ferritin 401.0 H Bedside Glucose 178 119 109 Medications Medication Current Medications Tigecycline 50 mg/ Sodium Chloride 100 ml @ 200 mls/hr Q12 IVPB Last administered on 08/20/18at 09:23; Admin Dose 200 MLS/HR; Start 08/19/18 at 09:00 Piperacillin Sod/ Tazobactam Sod 100 ml @ 200 mls/hr Q6 IVPB Last administered on 08/20/18at 12:23; Admin Dose 200 MLS/HR; Start 08/19/18 at 00:00 IV Flush (NS 3 ml) 3 ml PER PROTOCOL IV ; Start 08/18/18 at 20:30 Acetaminophen (Tylenol Tab) 650 mg Q6H PRN PO .PAIN 1-3 OR TEMP; Start 08/18/18 at 20:30 Acetaminophen/ Hydrocodone Bitart ([place] (5/325)) 1 tab Q6H PRN PO .MOD PAIN 4- 6; Start 08/18/18 at 20:30 Docusate Sodium (Colace) 100 mg Q12H PRN PO .CONSTIPATION; Start 08/18/18 at 20:30 Bisacodyl (Dulcolax) 5 mg DAILY PRN PO .CONSTIPATION; Start 08/18/18 at 20:30 Acetaminophen (Tylenol Tab) 650 mg Q6H PRN PO .PAIN 1-3 OR TEMP; Start 08/18/18 at 20:30 Ascorbic Acid (Vitamin C) 250 mg DAILY PO ; Start 08/19/18 at 09:00 Aspirin (Halfprin) 81 mg DAILY PO ; Start 08/19/18 at 09:00; Status Hold Atorvastatin Calcium (Lipitor) 40 mg HS PO Last administered on 08/19/18at 21:39; Admin Dose 40 MG; Start 08/18/18 at 21:00 Bethanechol Chloride (Urecholine) 10 mg TID PO ; Start 08/18/18 at 21:00 Carvedilol (Coreg) 25 mg BID PO Last administered on 08/19/18at 21:39; Admin Dose 25 MG; Start 08/18/18 at 21:00 Citric Acid/ Sodium Citrate (Bicitra) 30 ml BID PO ; Start 08/18/18 at 22:00 Collagenase (Santyl) 1 applic BID TOP ; Start 08/18/18 at 22:00 Gentamicin Sulfate (Gentamicin 0.1% Oint) 1 applic BID TOP ; Start 08/18/18 at 21:00 Metformin HCl (Glucophage) 1,000 mg BID WITH MEALS NGT ; Start 08/19/18 at 08:00; Status Hold Nifedipine (Procardia Xl) 60 mg DAILY PO Last administered on 08/19/18at 09:23; Admin Dose 60 MG; Start 08/19/18 at 09:00 Sodium Hypochlorite (Dakins Diluted (40)) 1 applic BID TP ; Start 08/18/18 at 22:00 Sucralfate (Carafate) 1 gm WITH MEALS PO Last administered on 08/19/18at 17:45; Admin Dose 1 GM; Start 08/19/18 at 08:00 Zinc Sulfate (Zinc Sulfate) 220 mg DAILY PO ; Start 08/19/18 at 09:00 Diagnostic Test (Pha) (Accu-Chek) 1 ea 02 XX ; Start 08/19/18 at 02:00 Miscellaneous Information 1 ea NOTE XX ; Start 08/18/18 at 22:30 Glucose (Glutose) 15 gm Q15M PRN PO DECREASED GLUCOSE; Start 08/18/18 at 22:30 Glucose (Glutose) 22.5 gm Q15M PRN PO DECREASED GLUCOSE; Start 08/18/18 at 22:30 Dextrose (D50w Syringe) 25 ml Q15M PRN IV DECREASED GLUCOSE; Start 08/18/18 at 22:30 Dextrose (D50w Syringe) 50 ml Q15M PRN IV DECREASED GLUCOSE; Start 08/18/18 at 22:30 Glucagon (Glucagen) 1 mg Q15M PRN IM DECREASED GLUCOSE; Start 08/18/18 at 22:30 Glucose (Glutose) 15 gm Q15M PRN BUCCAL DECREASED GLUCOSE; Start 08/18/18 at 22:30 Dextrose/Sodium Chloride 1,000 ml @ 80 mls/hr [id number] IV Last administered on 08/20/18at 12:24; Admin Dose 80 MLS/HR; Start 08/19/18 at 00:30 Insulin Aspart (Novolog Insulin Pen) NOVOLOG *MILD* ALGORI... Q4 SC Last administered on 08/19/18at 17:48; Admin Dose 1 UNIT; Start 08/19/18 at 05:00 Mineral Oil (Eucerin Lotion) 1 applic BID TOP Last administered on 08/20/18at 09:22; Admin Dose 1 APPLIC; Start 08/19/18 at 09:32 SEBASTIAN BARRETO NP August 20, 2018 12:51
--- NOTE | 2018-08-20 13:40 | HPN ---
Date/Time of Note Date/Time of Note DATE: 08/20/18 TIME: 13:40 Interval H&P Admission Note Pt. seen H&P reviewed: No system changes ANANT BROUSSARD DPM August 20, 2018 13:40
--- NOTE | 2018-08-20 13:59 | PREAC ---
Date/Time of Note Date/Time of Note DATE: 08/20/18 TIME: 13:56 Anesthesia Eval and Record Evaluation Time Pre-Procedure Interview DATE: 08/20/18 TIME: 13:56 Age 48 Sex female NPO: 8 hrs Preoperative diagnosis bilateral lower extremity gangrene, osteomeylitis Planned procedure bilateral lower extremity debridement, bone resection, allograft, and wound vac placement Past Medical History Past Medical History: Includes Cardio: HTN Endo: Diabetes Neuro: CVA Renal: CKD Heme: Anemia Surgery & Anesthesia Issues No known issue Meds Anticoagulation: No Beta Antoine within 24 hr: Yes Active Scripts Sucralfate* (Carafate*) 1 Gm Tab, 1 GM PO WITH MEALS, #20 TAB Prov:YUNIEL ELLSWORTH MD 08/18/18 Sodium Hypochlorite (Di-Dak-Anais) 473 Ml Solution, 1 APPLIC TP BID for 10 Days, #1 1 Refill Prov:DANNY ARCHULETA MD 07/15/18 Lanolin/Mineral Oil (Thera-Derm Lotion) 236 Ml Lotion, 1 APPLIC TOP BID for 14 Days, #14 1 Refill Prov:DANNY ARCHULETA MD 07/15/18 Gentamicin Sulfate* (Gentamicin Sulfate* Oint) 0.1% - 30 Gm Oint..gm., 1 APPLIC TOP BID for 14 Days, #30 1 Refill Prov:DANNY ARCHULETA MD 07/15/18 Collagenase* (Santyl*) 30 Gm Oint..gm., 1 APPLIC TOP BID for 10 Days, #20 2 Refills Prov:DANNY ARCHULETA MD 07/15/18 Ascorbic Acid (Vitamin C) 250 Mg Tab, 250 MG PO DAILY for 30 Days, #14 TAB Prov:DANNY ARCHULETA MD 07/15/18 Zinc Sulfate* (Zinc Sulfate*) 220 Mg Cap, 220 MG PO DAILY for 14 Days, #30 CAP Prov:DANNY ARCHULETA MD 07/15/18 Citric Acid/Sodium Citrate* (Bicitra* (PEDIATRIC)) 1 Meq/Ml Soln, 30 ML PO BID for 14 Days, #30 1 Refill Prov:DANNY ARCHULETA MD 07/15/18 Acetaminophen* (Tylenol*) 325 Mg Tablet, 650 MG PO Q6H PRN for .PAIN 1-3 OR TEMP for 14 Days, TAB Prov:DANNY ARCHULETA MD 07/15/18 Carvedilol* (Carvedilol*) 25 Mg Tablet, 25 MG PO BID for 10 Days, #20 TAB Prov:DANNY ARCHULETA MD 07/15/18 Nifedipine* (Nifedipine ER*) 60 Mg Tablet.sa, 60 MG PO DAILY, #60 TAB.SA Prov:ANEL COTA 02/09/18 Bethanechol Chloride* (Bethanechol Chloride*) 10 Mg Tablet, 10 MG PO TID, #90 TAB 1 Refill Prov:ANEL COTA 02/09/18 Aspirin* (Aspirin* EC) 81 Mg Tablet.dr, 81 MG PO DAILY for 90 Days, #90 TAB 5 Refills Prov:BRET PARIKH MD 02/05/18 Metformin Hcl (Glucophage) 500 Mg Tablet, 1000 MG NGT BID WITH MEALS for 60 D ays, #120 TAB 5 Refills Prov:BRET PARIKH MD 02/05/18 Atorvastatin* (Atorvastatin*) 40 Mg Tablet, 40 MG PO HS for 90 Days, #90 TAB 5 Refills Prov:BRET PARIKH MD 02/05/18 Current Medications Tigecycline 50 mg/ Sodium Chloride 100 ml @ 200 mls/hr Q12 IVPB Last administered on 08/20/18at 09:23; Admin Dose 200 MLS/HR; Start 08/19/18 at 09:00 IV Flush (NS 3 ml) 3 ml PER PROTOCOL IV ; Start 08/18/18 at 20:30 Acetaminophen (Tylenol Tab) 650 mg Q6H PRN PO .PAIN 1-3 OR TEMP; Start 08/18/18 at 20:30 Acetaminophen/ Hydrocodone Bitart ([place] (5/325)) 1 tab Q6H PRN PO .MOD PAIN 4- 6; Start 08/18/18 at 20:30 Docusate Sodium (Colace) 100 mg Q12H PRN PO .CONSTIPATION; Start 08/18/18 at 20:30 Bisacodyl (Dulcolax) 5 mg DAILY PRN PO .CONSTIPATION; Start 08/18/18 at 20:30 Acetaminophen (Tylenol Tab) 650 mg Q6H PRN PO .PAIN 1-3 OR TEMP; Start 08/18/18 at 20:30 Ascorbic Acid (Vitamin C) 250 mg DAILY PO ; Start 08/19/18 at 09:00 Aspirin (Halfprin) 81 mg DAILY PO ; Start 08/19/18 at 09:00; Status Hold Atorvastatin Calcium (Lipitor) 40 mg HS PO Last administered on 08/19/18at 21:39; Admin Dose 40 MG; Start 08/18/18 at 21:00 Bethanechol Chloride (Urecholine) 10 mg TID PO ; Start 08/18/18 at 21:00 Carvedilol (Coreg) 25 mg BID PO Last administered on 08/19/18at 21:39; Admin Dose 25 MG; Start 08/18/18 at 21:00 Citric Acid/ Sodium Citrate (Bicitra) 30 ml BID PO ; Start 08/18/18 at 22:00 Collagenase (Santyl) 1 applic BID TOP ; Start 08/18/18 at 22:00 Gentamicin Sulfate (Gentamicin 0.1% Oint) 1 applic BID TOP ; Start 08/18/18 at 21:00 Metformin HCl (Glucophage) 1,000 mg BID WITH MEALS NGT ; Start 08/19/18 at 08:00; Status Hold Nifedipine (Procardia Xl) 60 mg DAILY PO Last administered on 08/19/18at 09:23; Admin Dose 60 MG; Start 08/19/18 at 09:00 Sodium Hypochlorite (Dakins Diluted (1/40)) 1 applic BID TP ; Start 08/18/18 at 22:00 Sucralfate (Carafate) 1 gm WITH MEALS PO Last administered on 08/19/18at 17:45; Admin Dose 1 GM; Start 08/19/18 at 08:00 Zinc Sulfate (Zinc Sulfate) 220 mg DAILY PO ; Start 08/19/18 at 09:00 Diagnostic Test (Pha) (Accu-Chek) 1 ea 02 XX ; Start 08/19/18 at 02:00 Miscellaneous Information 1 ea NOTE XX ; Start 08/18/18 at 22:30 Glucose (Glutose) 15 gm Q15M PRN PO DECREASED GLUCOSE; Start 08/18/18 at 22:30 Glucose (Glutose) 22.5 gm Q15M PRN PO DECREASED GLUCOSE; Start 08/18/18 at 22:30 Dextrose (D50w Syringe) 25 ml Q15M PRN IV DECREASED GLUCOSE; Start 08/18/18 at 22:30 Dextrose (D50w Syringe) 50 ml Q15M PRN IV DECREASED GLUCOSE; Start 08/18/18 at 22:30 Glucagon (Glucagen) 1 mg Q15M PRN IM DECREASED GLUCOSE; Start 08/18/18 at 22:30 Glucose (Glutose) 15 gm Q15M PRN BUCCAL DECREASED GLUCOSE; Start 08/18/18 at 22:30 Dextrose/Sodium Chloride 1,000 ml @ 80 mls/hr [id number] IV Last administered on 08/20/18at 12:24; Admin Dose 80 MLS/HR; Start 08/19/18 at 00:30 Insulin Aspart (Novolog Insulin Pen) NOVOLOG *MILD* ALGORI... Q4 SC Last administered on 08/19/18at 17:48; Admin Dose 1 UNIT; Start 08/19/18 at 05:00 Mineral Oil (Eucerin Lotion) 1 applic BID TOP Last administered on 08/20/18at 0 9:22; Admin Dose 1 APPLIC; Start 08/19/18 at 09:32 Metronidazole 100 ml @ 100 mls/hr Q8 IVPB ; Start 08/20/18 at 14:00 Ceftriaxone Sodium 50 ml @ 100 mls/hr Q24H IVPB ; Start 08/20/18 at 13:00 Meds reviewed: Yes Allergies Coded Allergies: No Known Allergy (Unverified , 08/18/18) Allergies Reviewed: Yes Labs/Studies Labs Reviewed: Reviewed by anesthesiologist Result Diagram: 08/20/1852208/20/18522 Laboratory Tests 08/20/18 05:23 test: N/A Studies: ECG, CXR Pre-procedure Exam Last vitals Vital Signs Date Temp Pulse Resp B/P (MAP) Pulse Ox O2 O2 Flow FiO2 Time Delivery Rate 08/20/18 98.5 85 18 140/80 99 07:27 (100) 08/20/18 Room Air 02:00 Airway: Adequate mouth opening, Adequate thyromental dist Mallampati: Mallampati II Teeth: Normal Lung: Normal Heart: Normal ASA Physical Status ASA physical status: 3 Emergency: None Planned Anesthetic General/MAC: LMA Planned Pain Management Parenteral pain med Pre-operative Attestations Prior to commencing anesthesia and surgery, the patient was re-evaluated, there was verification of: *The patient's identity *The results of appropriate recent lab work and preoperative vital signs *The above evaluation not changing prior to induction *Anesthetic plan, risk benefits, alternative and complications discussed with patient/family; questions answered; patient/family understands, accepts and wishes to proceed. WAYNE DOWNING August 20, 2018 13:59
--- NOTE | 2018-08-20 14:06 | PN ---
Date/Time of Note Date/Time of Note DATE: 08/20/18 TIME: 14:03 Assessment/Plan VTE Prophylaxis Risk score (from Ns)>0 risk: 3 SCD applied (from [facility] [place] Yes Pharmacological prophylaxis: NA/contraindicated Pharm contraindication: surgical contra Lines/Catheters Urinary Cath still in place: No Assessment/Plan Hospital Course 48 yo woman with history of diabetes, HTN, CKD presents with bilateral LE osteomyelitis and gangrene after failure of outpatient home health to deliver antibiotics. # bilateral lower extremities gangrene/osteomyelitis - status post left transmetatarsal amputation/right fifth and fourth digits amputation and third digit debridement. Wound culture grew multidrug-resistant Acinetobacter, enterococcus, E. coli, Bacteroides -Patient apparently had issues with her antibiotics via home health. Continue Abx Rocephin, Flagyl and IV tigecycline -Per ID team all till 09/10/18. ID consultation appreciated -Podiatry consultation appreciated, plan is for graft today # DMII: Sugars are stable, A1c was 6.4. Will hold metformin at the current time for surgery # hypertension: Stable we will continue home medications # Chronic kidney disease stage III: Creatinine appears at baseline. # Chronic normocytic anemia: # History of stroke: no deficit at the current time will hold aspirin for possible procedure, continue carvedilol statin # History of adjustment disorder/acute stress disorder DVT prophylaxis: SCDs Result Diagram: 08/20/1852208/20/18522 Results 24hrs Laboratory Tests Test 08/19/18 17:46 08/19/18 21:37 08/20/18 01:26 08/20/18 05:23 Bedside Glucose 163 90 186 White Blood Count 9.0 Red Blood Count 3.13 L Hemoglobin 8.5 L Hematocrit 27.4 L Mean Corpuscular 87.5 Volume Mean Corpuscular 27.2 L Hemoglobin Mean Corpuscular 31.0 L Hemoglobin Concent Red Cell 16.6 H Distribution Width Platelet Count 252 Mean Platelet Volume 11.6 H Immature 0.400 Granulocytes % Neutrophils % 61.7 Lymphocytes % 18.7 Monocytes % 8.7 Eosinophils % 9.5 H Basophils % 1.0 Nucleated Red Blood 0.0 Cells % Immature 0.040 H Granulocytes # Neutrophils # 5.5 Lymphocytes # 1.7 Monocytes # 0.8 Eosinophils # 0.9 H Basophils # 0.1 Nucleated Red Blood 0.0 Cells # Sodium Level 142 Potassium Level 3.2 L Chloride Level 115 H Carbon Dioxide Level 24 Anion Gap 3 L Blood Urea Nitrogen 23 H Creatinine 0.92 Est Glomerular > 60 Filtrat Rate mL/min Glucose Level 184 Calcium Level 8.0 L Phosphorus Level 4.2 Magnesium Level 1.7 Iron Level 35 Total Iron Binding 146 L Capacity Percent Iron 24 Saturation Ferritin 401.0 H Test 08/20/18 05:35 08/20/18 09:24 08/20/18 12:23 Bedside Glucose 178 119 109 Subjective 24 Hr Interval Summary Constitutional: no complaints Exam/Review of Systems Exam Vitals Vital Signs Date Temp Pulse Resp B/P (MAP) Pulse Ox O2 O2 Flow FiO2 Time Delivery Rate 08/20/18 98.5 85 18 140/80 99 07:27 (100) 08/20/18 Room Air 02:00 Intake and Output 08/19/18 08/19/18 08/20/18 1515:00 23:00 07:00 IntakeIntake Total 680 ml 880 ml 850 ml BalanceBalance 680 ml 880 ml 850 ml Constitutional: alert, oriented Respiratory: clear to auscultation Cardiovascular: regular rate and rhythm Gastrointestinal: soft; No distended Musculoskeletal: nl extremities to inspection Results Results 24hrs Laboratory Tests Test 08/19/18 17:46 08/19/18 21:37 08/20/18 01:26 08/20/18 05:23 Bedside Glucose 163 90 186 White Blood Count 9.0 Red Blood Count 3.13 L Hemoglobin 8.5 L Hematocrit 27.4 L Mean Corpuscular 87.5 Volume Mean Corpuscular 27.2 L Hemoglobin Mean Corpuscular 31.0 L Hemoglobin Concent Red Cell 16.6 H Distribution Width Platelet Count 252 Mean Platelet Volume 11.6 H Immature 0.400 Granulocytes % Neutrophils % 61.7 Lymphocytes % 18.7 Monocytes % 8.7 Eosinophils % 9.5 H Basophils % 1.0 Nucleated Red Blood 0.0 Cells % Immature 0.040 H Granulocytes # Neutrophils # 5.5 Lymphocytes # 1.7 Monocytes # 0.8 Eosinophils # 0.9 H Basophils # 0.1 Nucleated Red Blood 0.0 Cells # Sodium Level 142 Potassium Level 3.2 L Chloride Level 115 H Carbon Dioxide Level 24 Anion Gap 3 L Blood Urea Nitrogen 23 H Creatinine 0.92 Est Glomerular > 60 Filtrat Rate mL/min Glucose Level 184 Calcium Level 8.0 L Phosphorus Level 4.2 Magnesium Level 1.7 Iron Level 35 Total Iron Binding 146 L Capacity Percent Iron 24 Saturation Ferritin 401.0 H Test 08/20/18 05:35 08/20/18 09:24 08/20/18 12:23 Bedside Glucose 178 119 109 Medications Medication Current Medications Tigecycline 50 mg/ Sodium Chloride 100 ml @ 200 mls/hr Q12 IVPB Last administe red on 08/20/18at 09:23; Admin Dose 200 MLS/HR; Start 08/19/18 at 09:00 IV Flush (NS 3 ml) 3 ml PER PROTOCOL IV ; Start 08/18/18 at 20:30 Acetaminophen (Tylenol Tab) 650 mg Q6H PRN PO .PAIN 1-3 OR TEMP; Start 08/18/18 at 20:30 Acetaminophen/ Hydrocodone Bitart ([place] (5/325)) 1 tab Q6H PRN PO .MOD PAIN 4- 6; Start 08/18/18 at 20:30 Docusate Sodium (Colace) 100 mg Q12H PRN PO .CONSTIPATION; Start 08/18/18 at 20:30 Bisacodyl (Dulcolax) 5 mg DAILY PRN PO .CONSTIPATION; Start 08/18/18 at 20:30 Acetaminophen (Tylenol Tab) 650 mg Q6H PRN PO .PAIN 1-3 OR TEMP; Start 08/18/18 at 20:30 Ascorbic Acid (Vitamin C) 250 mg DAILY PO ; Start 08/19/18 at 09:00 Aspirin (Halfprin) 81 mg DAILY PO ; Start 08/19/18 at 09:00; Status Hold Atorvastatin Calcium (Lipitor) 40 mg HS PO Last administered on 08/19/18at 21:39; Admin Dose 40 MG; Start 08/18/18 at 21:00 Bethanechol Chloride (Urecholine) 10 mg TID PO ; Start 08/18/18 at 21:00 Carvedilol (Coreg) 25 mg BID PO Last administered on 08/19/18at 21:39; Admin Dose 25 MG; Start 08/18/18 at 21:00 Citric Acid/ Sodium Citrate (Bicitra) 30 ml BID PO ; Start 08/18/18 at 22:00 Collagenase (Santyl) 1 applic BID TOP ; Start 08/18/18 at 22:00 Gentamicin Sulfate (Gentamicin 0.1% Oint) 1 applic BID TOP ; Start 08/18/18 at 21:00 Metformin HCl (Glucophage) 1,000 mg BID WITH MEALS NGT ; Start 08/19/18 at 08:00; Status Hold Nifedipine (Procardia Xl) 60 mg DAILY PO Last administered on 08/19/18at 09:23; Admin Dose 60 MG; Start 08/19/18 at 09:00 Sodium Hypochlorite (Dakins Diluted ()) 1 applic BID TP ; Start 08/18/18 at 22:00 Sucralfate (Carafate) 1 gm WITH MEALS PO Last administered on 08/19/18at 17:45; Admin Dose 1 GM; Start 08/19/18 at 08:00 Zinc Sulfate (Zinc Sulfate) 220 mg DAILY PO ; Start 08/19/18 at 09:00 Diagnostic Test (Pha) (Accu-Chek) 1 ea 02 XX ; Start 08/19/18 at 02:00 Miscellaneous Information 1 ea NOTE XX ; Start 08/18/18 at 22:30 Glucose (Glutose) 15 gm Q15M PRN PO DECREASED GLUCOSE; Start 08/18/18 at 22:30 Glucose (Glutose) 22.5 gm Q15M PRN PO DECREASED GLUCOSE; Start 08/18/18 at 22:30 Dextrose (D50w Syringe) 25 ml Q15M PRN IV DECREASED GLUCOSE; Start 08/18/18 at 22:30 Dextrose (D50w Syringe) 50 ml Q15M PRN IV DECREASED GLUCOSE; Start 08/18/18 at 22:30 Glucagon (Glucagen) 1 mg Q15M PRN IM DECREASED GLUCOSE; Start 08/18/18 at 22:30 Glucose (Glutose) 15 gm Q15M PRN BUCCAL DECREASED GLUCOSE; Start 08/18/18 at 22:30 Dextrose/Sodium Chloride 1,000 ml @ 80 mls/hr [id number] IV Last administered on 08/20/18at 12:24; Admin Dose 80 MLS/HR; Start 08/19/18 at 00:30 Insulin Aspart (Novolog Insulin Pen) NOVOLOG *MILD* ALGORI... Q4 SC Last administered on 08/19/18at 17:48; Admin Dose 1 UNIT; Start 08/19/18 at 05:00 Mineral Oil (Eucerin Lotion) 1 applic BID TOP Last administered on 08/20/18at 09:22; Admin Dose 1 APPLIC; Start 08/19/18 at 09:32 Metronidazole 100 ml @ 100 mls/hr Q8 IVPB ; Start 08/20/18 at 14:00 Ceftriaxone Sodium 50 ml @ 100 mls/hr Q24H IVPB ; Start 08/20/18 at 13:00 ANEL COTA August 20, 2018 14:06
[2018-08-20] MEDS ORDERED: LIDOCAINE 1% (MPF) 30 ML INJ INJ ONE (14:20)
[2018-08-20] MEDS ORDERED: MIDAZOLAM 1 MG/ML 2 ML INJ ONE (14:24)
[2018-08-20] MEDS ORDERED: FENTAnyl 50 MCG/ML VIAL ONE (14:24)
[2018-08-20] MEDS ORDERED: LIDOCAINE 1% (MPF) 30 ML INJ ONE (14:34)
[2018-08-20] MEDS ORDERED: OXYCODONE/ACETAMINOPHEN (5/325) TAB PO PRN ×2 (16:00)
[2018-08-20] MEDS ORDERED: FENTAnyl 50 MCG/ML VIAL IV PRN ×2 (16:00)
[2018-08-20] MEDS ORDERED: MEPERIDINE 25 MG INJ IV PRN (16:00)
[2018-08-20] MEDS ORDERED: KETOROLAC 30 MG INJ IV PRN (16:00)
[2018-08-20] MEDS ORDERED: LABETALOL HCL 20MG INJ IV PRN (16:00)
[2018-08-20] MEDS ORDERED: ONDANSETRON 4 MG INJ IV PRN (16:00)
[2018-08-20] MEDS ORDERED: MIDAZOLAM 1 MG/ML 2 ML INJ IV PRN (16:00)
[2018-08-20] MEDS ORDERED: METOCLOPRAMIDE 10 MG INJ IV PRN (16:00)
[2018-08-20] MEDS ORDERED: ALBUTEROL 0.083% (NEB) 2.5 MG/3 ML AMP HHN PRN (16:00)
[2018-08-20] MEDS ORDERED: EPHEDrine 25 MG/5 ML SYG IV PRN (16:00)
[2018-08-20] MEDS ORDERED: hydrALAzine 20 MG INJ IV PRN (16:00)
[2018-08-20] MEDS ORDERED: DIPHENHYDRAMINE 50 MG INJ IV PRN (16:00)
--- NOTE | 2018-08-20 16:06 | OPR ---
Date/Time of Note Date/Time of Note DATE: 08/20/18 TIME: 16:06 Operative Report Preoperative Diagnosis Bilateral diabetic ulcers Hx of gangrene Osteomyelitis b/l feet DM2 with peripheral neuropathy Hx of right foot digit amputations Hx of left foot TMA Postoperative Diagnosis Bilateral diabetic ulcers Hx of gangrene Osteomyelitis b/l feet DM2 with peripheral neuropathy Hx of right foot digit amputations Hx of left foot TMA Operation/Procedure Performed Bilateral foot excisional debridement application of allograft revision of left foot TMA Surgeon see signature line Packaging Associate none Anesthesia Type: MAC Estimated Blood Loss: 0 - 10 ml's Transfusion none Specimen left foot bone Grafts/Implants none Complications none Indications 48 y/o F patient with previous wound debridement digit amp and left foot TMA presents with similar presentation and requiring staged interventions to achieve wound healing. Patient amenable to surgical debridement, revision of L foot TMA and application of skin allograft. Addressed all of the patient's questions and concerns. No promises or guarantees were given. Procedure Description Patient was brought into the OR and placed on the OR table in the supine position. Bilateral lower extremities were scrubbed, prepped, and draped in the usual aseptic manner. A formal time out was conducted. Local anesthesia was administered to bilateral lower extremity in an ankle block fashion. Attention was directed to the right foot and performed excisional debridement of skin/subQ/muscle/fascia/bone of the right foot ulceration site using a versajet system and mona on power. Fibrotic tissue, necrotic bone, and biofilm was removed from the wound bed. The ulceration measured 13 x 4 x 0.3cm which had a fibrogranular wound bed with bone exposed. No purulence or proximal streaking was appreciated. 52cm2 of area was debrided Next attention was directed to the left foot where there was residual necrotic and non-viable bone of the previous TMA site and using a sagittal saw on power a revision TMA was performed of the metatarsals 1-5 and all non viable bone was resected and sent for pathology. Using versajet excisional debridement of skin/subQ/muscle/fascia/bone of the left foot ulceration site was performed. Fibrotic tissue, necrotic bone, and biofilm was removed from the wound bed. The ulceration measured 15 x 5.5 x 0.3cm which had a fibrogranular wound bed with bone exposed. No purulence or proximal streaking was appreciated. 82.5cm2 of area was debrided. Total of 134.5cm2 area was debrided. Using integra bilayer the allograft was applied to the ulceration site of bilateral feet and was secured using skin lincoln and suture the graft was secured in place. A 4 x 10 inch and 4 x 5inch graft was used in total. Xeroform and dry sterile compression dressings were applied. Patient was transferred to PACU with vital signs stable and neurovascular status intact. ANANT BROUSSARD DPM August 20, 2018 16:06
--- NOTE | 2018-08-20 16:06 | SIPON ---
Date/Time of Note Date/Time of Note DATE: 08/20/18 TIME: 16:06 Operative Report Preoperative Diagnosis Bilateral diabetic ulcers Hx of gangrene Osteomyelitis b/l feet DM2 with peripheral neuropathy Hx of right foot digit amputations Hx of left foot TMA Postoperative Diagnosis Bilateral diabetic ulcers Hx of gangrene Osteomyelitis b/l feet DM2 with peripheral neuropathy Hx of right foot digit amputations Hx of left foot TMA Operation/Procedure Performed Bilateral foot excisional debridement application of allograft revision of left foot TMA Surgeon see signature line congressional assistant none Anesthesia: MAC Estimated blood loss: 0 - 10 ml's Transfusion Required none Specimen left foot bone Grafts/Implants integra bilayer Complications none ANANT BROUSSARD DPGonzalo August 20, 2018 16:06
[2018-08-20] MEDS: CEFTRIAXONE 1 GM/50 ML (PMX) 50 ML IVPB SCH (16:38)
[2018-08-20] MEDS: metroNIDAZOLE 500 MG/NS (PMX) 100 ML IVPB SCH ×2 (17:22→22:50)
[2018-08-20] MEDS: ACETAMINOPHEN 325 MG TAB PO PRN (18:07)
[2018-08-20] MEDS: ATORVASTATIN 40 MG TAB PO SCH (20:46)
[2018-08-20] MEDS ORDERED: INSULIN ASPART [NOVOLOG] 3 ML PEN SC SCH (21:00)
[2018-08-20] MEDS: Insulin NOVOLOG SS MILD Algorithm (SS with meals and bedtime) SC SCH (22:49)
[2018-08-21] MEDS: ACCU-CHEK XX SCH (02:00)
[2018-08-21 02:44] VITALS: BP 158/85; PULSE 80; RESP 18
[2018-08-21] MEDS: metroNIDAZOLE 500 MG/NS (PMX) 100 ML IVPB SCH ×3 (05:46→22:36)
[2018-08-21] MEDS: Insulin NOVOLOG SS MILD Algorithm (SS with meals and bedtime) SC SCH ×4 (07:00→21:00)
[2018-08-21 07:38] VITALS: BP 168/85; PULSE 69; RESP 18
[2018-08-21] MEDS: CITRIC ACID/NA CITRATE 30 ML CUP PO SCH ×2 (08:15→21:00)
[2018-08-21] MEDS: BETHANECHOL 10 MG TAB PO SCH ×3 (08:16→21:00)
[2018-08-21] MEDS: TIGECYCLINE 50 MG in SOD CHLORIDE 0.9% 100 ML IVPB SCH ×2 (08:19→21:43)
[2018-08-21] MEDS: ZINC SULFATE 220 MG CAP PO SCH (08:20)
[2018-08-21] MEDS: NIFEdipine (XL) 60 MG TAB PO SCH (08:20)
[2018-08-21] MEDS: SUCRALFATE 1 GM TAB PO SCH ×3 (08:20→17:21)
[2018-08-21] MEDS: MINERAL OIL 240 ML LOT TOP SCH ×2 (08:20→21:46)
[2018-08-21] MEDS: ASCORBIC ACID 250 MG TAB PO SCH (08:20)
[2018-08-21] MEDS: GENTAMICIN 0.1% 15 GM OINT TOP SCH ×2 (08:21→21:00)
[2018-08-21] MEDS: DAKINS 0.0125%(1/40) 473 ML SOLUTION TP SCH ×2 (08:21→21:00)
[2018-08-21] MEDS: COLLAGENASE 5 GM (UD JAR) TOP SCH ×2 (08:21→21:00)
[2018-08-21] MEDS: CEFTRIAXONE 1 GM/50 ML (PMX) 50 ML IVPB SCH (12:46)
[2018-08-21 14:00] VITALS: BP 135/74; PULSE 80; RESP 18
--- NOTE | 2018-08-21 14:28 | PAC ---
Date/Time of Note Date/Time of Note DATE: 08/21/18 TIME: 14:28 Post-Anesthesia Notes Post-Anesthesia Note Last documented vital signs Vital Signs Date Temp Pulse Resp B/P (MAP) Pulse Ox O2 O2 Flow FiO2 Time Delivery Rate 08/21/18 98.7 69 18 168/85 99 Room Air 09:38 (112) Activity: WNL Respiratory function: WNL Cardiovascular function: WNL Mental status: Baseline Pain reasonably controlled: Yes Hydration appropriate: Yes Nausea/Vomiting absent: Yes WAYNE DOWNING Aug 21, 2018 14:28
--- NOTE | 2018-08-21 14:43 | CONS ---
Consultation Date/Type/Reason Admit Date/Time August 18, 2018 at 19:38 Initial Consult Date SUBJECTIVE: Pt is sleepy, afebrile and looks comfortable. S/P Debridement yesterday. VS: stable T: 98.7 LABS: Revised. Antimicrobials: Tygacil, Flagyl and Rocephin Microbiology: Wound culture grew multidrug-resistant Acinetobacter, enterococcus, E. coli, Bacteroides Physical examination: GEN: Well-developed well-nourished middle-aged woman, who is alert in no distress. HENT: Head atraumatic normocephalic; sclera nonicteric. Neck is supple. PULM: Chest rise symmetrical, breath sounds clear. Heart: S1-S2. Abdomen: soft, bowel sounds present. Extremities with bilateral lower extremities dressing clean dry and intact Assessment: 1. Bilateral lower extremities gangrene/Osteomyelitis, status post left transmetatarsal amputation/right fifth and fourth digits amputation and third digit debridement==> Pathology + acute OM R foot . S/P debridement 08/20/18 2. Chronic kidney disease, history of hemodialysis 3. Diabetes 4. RUE PICC Plan: Pt is stable. continue current antbx treatment and local wound care per podiatry recommendations. Date/Time of Note DATE: 08/21/18 TIME: 14:39 Exam/Review of Systems Exam Vitals Vital Signs Date Temp Pulse Resp B/P (MAP) Pulse Ox O2 O2 Flow FiO2 Time Delivery Rate 08/21/18 98.7 69 18 168/85 99 Room Air 07:38 (112) Intake and Output 08/20/18 08/20/18 08/21/18 1515:00 23:00 07:00 IntakeIntake Total 100 ml 670 ml 200 ml OutputOutput Total 10 ml BalanceBalance 100 ml 660 ml 200 ml Results Result Diagram: 08/20/18 0523 08/20/18 0523 Results 24hrs Laboratory Tests Test 08/20/18 17:23 08/20/18 22:43 08/21/18 02:38 08/21/18 08:17 Bedside Glucose 89 225 H 74 97 Test 08/21/18 12:44 Bedside Glucose 178 Medications Medication Current Medications Tigecycline 50 mg/ Sodium Chloride 100 ml @ 200 mls/hr Q12 IVPB Last a dministered on 08/21/18at 08:19; Admin Dose 200 MLS/HR; Start 5/30/19 at 09:00 IV Flush (NS 3 ml) 3 ml PER PROTOCOL IV ; Start 08/18/18 at 20:30 Acetaminophen (Tylenol Tab) 650 mg Q6H PRN PO .PAIN 1-3 OR TEMP Last administered on 08/20/18at 18:07; Admin Dose 650 MG; Start 08/18/18 at 20:30 Acetaminophen/ Hydrocodone Bitart ([place] (5/325)) 1 tab Q6H PRN PO .MOD PAIN 4- 6; Start 08/18/18 at 20:30 Docusate Sodium (Colace) 100 mg Q12H PRN PO .CONSTIPATION; Start 08/18/18 at 20:30 Bisacodyl (Dulcolax) 5 mg DAILY PRN PO .CONSTIPATION; Start 08/18/18 at 20:30 Acetaminophen (Tylenol Tab) 650 mg Q6H PRN PO .PAIN 1-3 OR TEMP; Start 08/18/18 at 20:30 Ascorbic Acid (Vitamin C) 250 mg DAILY PO Last administered on 08/21/18at 08:20; Admin Dose 250 MG; Start 08/19/18 at 09:00 Atorvastatin Calcium (Lipitor) 40 mg HS PO Last administered on 08/20/18at 20:46; Admin Dose 40 MG; Start 08/18/18 at 21:00 Bethanechol Chloride (Urecholine) 10 mg TID PO ; Start 08/18/18 at 21:00 Carvedilol (Coreg) 25 mg BID PO Last administered on 08/21/18at 08:20; Admin Dose 25 MG; Start 08/18/18 at 21:00 Citric Acid/ Sodium Citrate (Bicitra) 30 ml BID PO ; Start 08/18/18 at 22:00 Collagenase (Santyl) 1 applic BID TOP ; Start 08/18/18 at 22:00 Gentamicin Sulfate (Gentamicin 0.1% Oint) 1 applic BID TOP ; Start 08/18/18 at 21:00 Nifedipine (Procardia Xl) 60 mg DAILY PO Last administered on 08/21/18at 08:20; Admin Dose 60 MG; Start 08/19/18 at 09:00 Sodium Hypochlorite (Dakins Diluted (40)) 1 applic BID TP ; Start 08/18/18 at 22:00 Sucralfate (Carafate) 1 gm WITH MEALS PO Last administered on 08/21/18 12:44; Admin Dose 1 GM; Start 08/19/18 at 08:00 Zinc Sulfate (Zinc Sulfate) 220 mg DAILY PO Last administered on 08/21/18 08:20; Admin Dose 220 MG; Start 08/19/18 at 09:00 Diagnostic Test (Pha) (Accu-Chek) 1 ea 02 XX ; Start 08/19/18 at 02:00 Miscellaneous Information 1 ea NOTE XX ; Start 08/18/18 at 22:30 Glucose (Glutose) 15 gm Q15M PRN PO DECREASED GLUCOSE; Start 08/18/18 at 22:30 Glucose (Glutose) 22.5 gm Q15M PRN PO DECREASED GLUCOSE; Start 08/18/18 at 22:30 Dextrose (D50w Syringe) 50 ml Q15M PRN IV DECREASED GLUCOSE; Start 08/18/18 at 22:30 Glucagon (Glucagen) 1 mg Q15M PRN IM DECREASED GLUCOSE; Start 08/18/18 at 22:30 Glucose (Glutose) 15 gm Q15M PRN BUCCAL DECREASED GLUCOSE; Start 08/18/18 at 22:30 Mineral Oil (Eucerin Lotion) 1 applic BID TOP Last administered on 08/21/18 08:20; Admin Dose 1 APPLIC; Start 08/19/18 at 09:32 Metronidazole 100 ml @ 100 mls/hr Q8 IVPB Last administered on 08/21/18 14:23; Admin Dose 100 MLS/HR; Start 08/20/18 at 14:00 Ceftriaxone Sodium 50 ml @ 100 mls/hr Q24H IVPB Last administered on 08/21/18 12:46; Admin Dose 100 MLS/HR; Start 08/20/18 at 13:00 Insulin Aspart (Novolog Insulin Pen) (Adult SC Insulin - Mild Algorithm)... AC MEALS AND BEDTIME SC Last administered on 08/21/18 12:48; Admin Dose 1 UNIT; Start 08/20/18 at 21:00 NIMESH DAWKINS Aug 21, 2018 14:43
--- NOTE | 2018-08-21 15:37 | PN ---
Date/Time of Note Date/Time of Note DATE: 08/21/18 TIME: 15:29 Assessment/Plan VTE Prophylaxis Risk score (from Ns)>0 risk: 7 SCD applied (from Ns): Yes Pharmacological prophylaxis: NA/contraindicated Pharm contraindication: other (anemia) Lines/Catheters IV Catheter Type (from Nrsg): PICC Line Central line still needed: Yes Urinary Cath still in place: No Assessment/Plan Hospital Course Assessment and plan 1. Bilateral lower extremity gangrene/osteomyelitis. Patient status post left transmetatarsal amputation/right fifth and fourth digits with third digit debridement. Continue antibiotics. Wound culture did show multi resistant Acinetobacter, enterococcus, E. coli, Bacteroides. Continue with ID consult recommendations. 2. Diabetes. A1c 6.4. Continue blood sugar control. 3. Hypertension. Will continue on antihypertensives. Will adjust as needed. 4. CKD. Monitor renal panel. 5. History of CVA. Continue on statin medication. Disposition and plan. Continue antibiotics. Follow-up with podiatry and ID consult recommendations. Continue in-house monitoring for now. Wound care per podiatry. Discussed plan of care with Dr. Cross Result Diagram: 08/20/1823 08/20/18522 Results 24hrs Laboratory Tests Test 08/20/18 17:23 08/20/18 22:43 08/21/18 02:38 08/21/18 08:17 Bedside Glucose 89 225 H 74 97 Test 08/21/18 12:44 Bedside Glucose 178 Subjective 24 Hr Interval Summary Free Text/Dictation Comfortable present. Denies any pain at this time. Exam/Review of Systems Exam Vitals Vital Signs Date Temp Pulse Resp B/P (MAP) Pulse Ox O2 O2 Flow FiO2 Time Delivery Rate 08/21/18 99.0 80 18 135/74 99 Room Air 14:00 (94) Intake and Output 08/20/18 08/20/18 08/21/18 1515:00 23:00 07:00 IntakeIntake Total 100 ml 670 ml 200 ml OutputOutput Total 10 ml BalanceBalance 100 ml 660 ml 200 ml Constitutional: alert, oriented Psych: nl mood/affect Head: normocephalic Eyes: nl conjunctiva Neck: supple, non-tender Respiratory: clear to auscultation Cardiovascular: regular rate and rhythm Gastrointestinal: soft, non-tender Musculoskeletal: other (bilateral lower extremities with dressings in place, cdi ) Extremities: other (hx right foot digit ampuations) Neurological: COMMERCIAL DRIVER II-XII intact, nl mental status, nl speech Results Results 24hrs Laboratory Tests Test 08/20/18 17:23 08/20/18 22:43 08/21/18 02:38 08/21/18 08:17 Bedside Glucose 89 225 H 74 97 Test 08/21/18 12:44 Bedside Glucose 178 Medications Medication Current Medications Tigecycline 50 mg/ Sodium Chloride 100 ml @ 200 mls/hr Q12 IVPB Last administered on 08/21/18at 08:19; Admin Dose 200 MLS/HR; Start 08/19/18 at 09:00 IV Flush (NS 3 ml) 3 ml PER PROTOCOL IV ; Start 08/18/18 at 20:30 Acetaminophen (Tylenol Tab) 650 mg Q6H PRN PO .PAIN 1-3 OR TEMP Last admini stered on 08/20/18at 18:07; Admin Dose 650 MG; Start 08/18/18 at 20:30 Acetaminophen/ Hydrocodone Bitart ([place] (5/325)) 1 tab Q6H PRN PO .MOD PAIN 4- 6; Start 08/18/18 at 20:30 Docusate Sodium (Colace) 100 mg Q12H PRN PO .CONSTIPATION; Start 08/18/18 at 20:30 Bisacodyl (Dulcolax) 5 mg DAILY PRN PO .CONSTIPATION; Start 08/18/18 at 20:30 Acetaminophen (Tylenol Tab) 650 mg Q6H PRN PO .PAIN 1-3 OR TEMP; Start 08/18/18 at 20:30 Ascorbic Acid (Vitamin C) 250 mg DAILY PO Last administered on 08/21/18at 08:20; Admin Dose 250 MG; Start 08/19/18 at 09:00 Atorvastatin Calcium (Lipitor) 40 mg HS PO Last administered on 08/20/18at 20:46; Admin Dose 40 MG; Start 08/18/18 at 21:00 Bethanechol Chloride (Urecholine) 10 mg TID PO ; Start 08/18/18 at 21:00 Carvedilol (Coreg) 25 mg BID PO Last administered on 08/21/18at 08:20; Admin Dose 25 MG; Start 08/18/18 at 21:00 Citric Acid/ Sodium Citrate (Bicitra) 30 ml BID PO ; Start 08/18/18 at 22:00 Collagenase (Santyl) 1 applic BID TOP ; Start 08/18/18 at 22:00 Gentamicin Sulfate (Gentamicin 0.1% Oint) 1 applic BID TOP ; Start 08/18/18 at 21:00 Nifedipine (Procardia Xl) 60 mg DAILY PO Last administered on 08/21/18at 08:20; Admin Dose 60 MG; Start 08/19/18 at 09:00 Sodium Hypochlorite (Dakins Diluted (40)) 1 applic BID TP ; Start 08/18/18 at 22:00 Sucralfate (Carafate) 1 gm WITH MEALS PO Last administered on 08/21/18at 12:44; Admin Dose 1 GM; Start 08/19/18 at 08:00 Zinc Sulfate (Zinc Sulfate) 220 mg DAILY PO Last administered on 08/21/18at 08:20; Admin Dose 220 MG; Start 08/19/18 at 09:00 Diagnostic Test (Pha) (Accu-Chek) 1 ea 02 XX ; Start 08/19/18 at 02:00 Miscellaneous Information 1 ea NOTE XX ; Start 08/18/18 at 22:30 Glucose (Glutose) 15 gm Q15M PRN PO DECREASED GLUCOSE; Start 08/18/18 at 22:30 Glucose (Glutose) 22.5 gm Q15M PRN PO DECREASED GLUCOSE; Start 08/18/18 at 22:30 Dextrose (D50w Syringe) 50 ml Q15M PRN IV DECREASED GLUCOSE; Start 08/18/18 at 22:30 Glucagon (Glucagen) 1 mg Q15M PRN IM DECREASED GLUCOSE; Start 08/18/18 at 22:30 Glucose (Glutose) 15 gm Q15M PRN BUCCAL DECREASED GLUCOSE; Start 08/18/18 at 22:30 Mineral Oil (Eucerin Lotion) 1 applic BID TOP Last administered on 08/21/18at 08:20; Admin Dose 1 APPLIC; Start 08/19/18 at 09:32 Metronidazole 100 ml @ 100 mls/hr Q8 IVPB Last administered on 08/21/18at 14:23; Admin Dose 100 MLS/HR; Start 08/20/18 at 14:00 Ceftriaxone Sodium 50 ml @ 100 mls/hr Q24H IVPB Last administered on 08/21/18at 12:46; Admin Dose 100 MLS/HR; Start 08/20/18 at 13:00 Insulin Aspart (Novolog Insulin Pen) (Adult SC Insulin - Mild Algorithm)... AC MEALS AND BEDTIME SC Last administered on 08/21/18at 12:48; Admin Dose 1 UNIT; Start 08/20/18 at 21:00 KFOFI REYES NP Aug 21, 2018 15:37
[2018-08-21 19:32] VITALS: BP 148/80; PULSE 91; RESP 18
[2018-08-21] MEDS: ATORVASTATIN 40 MG TAB PO SCH (21:45)
[2018-08-21] MEDS: ACETAMINOPHEN 325 MG TAB PO PRN (22:05)
[2018-08-22 01:42] VITALS: BP 126/73; PULSE 65; RESP 18
[2018-08-22] MEDS: ACCU-CHEK XX SCH (01:47)
[2018-08-22] MEDS: metroNIDAZOLE 500 MG/NS (PMX) 100 ML IVPB SCH ×3 (05:53→22:04)
[2018-08-22] MEDS: Insulin NOVOLOG SS MILD Algorithm (SS with meals and bedtime) SC SCH ×4 (07:00→21:00)
[2018-08-22 07:38] VITALS: BP 137/78; PULSE 59; RESP 18
[2018-08-22] MEDS: TIGECYCLINE 50 MG in SOD CHLORIDE 0.9% 100 ML IVPB SCH ×2 (08:51→21:14)
[2018-08-22] MEDS: ASCORBIC ACID 250 MG TAB PO SCH (08:52)
[2018-08-22] MEDS: CITRIC ACID/NA CITRATE 30 ML CUP PO SCH ×3 (08:52→21:17)
[2018-08-22] MEDS: NIFEdipine (XL) 60 MG TAB PO SCH (08:53)
[2018-08-22] MEDS: ZINC SULFATE 220 MG CAP PO SCH (08:53)
[2018-08-22] MEDS: SUCRALFATE 1 GM TAB PO SCH ×3 (08:53→17:36)
[2018-08-22] MEDS: GENTAMICIN 0.1% 15 GM OINT TOP SCH ×2 (08:54→21:00)
[2018-08-22] MEDS: COLLAGENASE 5 GM (UD JAR) TOP SCH ×2 (08:54→21:00)
[2018-08-22] MEDS: MINERAL OIL 240 ML LOT TOP SCH ×2 (08:54→21:21)
[2018-08-22] MEDS: BETHANECHOL 10 MG TAB PO SCH ×3 (08:55→21:17)
[2018-08-22] MEDS: DAKINS 0.0125%(1/40) 473 ML SOLUTION TP SCH ×2 (08:55→21:00)
[2018-08-22] MEDS: ACETAMINOPHEN 325 MG TAB PO PRN (09:02)
[2018-08-22] MEDS ORDERED: ALTEPLASE (CATHFLO) 2 MG INJ CATHETER PRN (10:00)
[2018-08-22] MEDS ORDERED: POTASSIUM CHLORIDE (SR) 20 MEQ TAB PO STA (10:20)
--- NOTE | 2018-08-22 10:46 | PN ---
Date/Time of Note Date/Time of Note DATE: 08/22/18 TIME: 10:44 Assessment/Plan VTE Prophylaxis Risk score (from [facility])>0 risk: 7 SCD applied (from [facility]): Yes Pharmacological prophylaxis: NA/contraindicated Pharm contraindication: other (anemia) Lines/Catheters IV C[facility]ter Type (from [facility]): PICC Line Central line still needed: Yes Urinary Cath still in place: No Assessment/Plan Hospital Course Assessment and plan 1. Bilateral lower extremity gangrene/osteomyelitis. - Patient status post left transmetatarsal amputation/right fifth and fourth digits with third digit debridement. - Continue antibiotics. - Wound culture did show multi resistant Acinetobacter, enterococcus, E. coli, Bacteroides. - Continue with ID consult recommendations. 2. Diabetes. - A1c 6.4. - Continue blood sugar control. 3. Hypertension. - Will continue on antihypertensives. - Will adjust as needed. 4. CKD. - Monitor renal panel. 5. History of CVA. - Continue on statin medication. Disposition and plan. Continue antibiotics. Wound care per podiatry. analgesics prn. f/u cultures. continue inhouse monitoring. f/u podiatry for d/c planning Discussed plan of care with Dr. Cross Result Diagram: 08/22/18 0908/22/18925 Results 24hrs Laboratory Tests Test 08/21/18 12:44 08/21/18 17:21 08/21/18 21:42 08/22/18 08:02 Bedside Glucose 178 134 122 98 Test 08/22/18 09:26 White Blood Count 7.8 Red Blood Count 3.36 L Hemoglobin 9.2 L Hematocrit 28.4 L Mean Corpuscular Volume 84.5 Mean Corpuscular 27.4 L Hemoglobin Mean Corpuscular 32.4 Hemoglobin Concent Red Cell Distribution 16.2 H Width Platelet Count 279 Mean Platelet Volume 11.3 H Immature Granulocytes % 0.400 Neutrophils % 58.5 Lymphocytes % 20.5 Monocytes % 8.2 Eosinophils % 11.5 H Basophils % 0.9 Nucleated Red Blood 0.0 Cells % Immature Granulocytes # 0.030 Neutrophils # 4.6 Lymphocytes # 1.6 Monocytes # 0.6 Eosinophils # 0.9 H Basophils # 0.1 Nucleated Red Blood 0.0 Cells # Sodium Level 142 Potassium Level 2.9 *L Chloride Level 112 H Carbon Dioxide Level 21 Anion Gap 9 Blood Urea Nitrogen 18 Creatinine 0.78 Est Glomerular Filtrat > 60 Rate mL/min Glucose Level 107 Calcium Level 7.5 L Magnesium Level 1.7 Subjective 24 Hr Interval Summary Free Text/Dictation states she only has little pain on BLE Exam/Review of Systems Exam Vitals Vital Signs Date Temp Pulse Resp B/P (MAP) Pulse Ox O2 O2 Flow FiO2 Time Delivery Rate 08/22/18 98.0 59 18 137/78 100 Room Air 07:38 (97) Intake and Output 08/21/18 08/21/18 08/22/18 1515:00 23:00 07:00 IntakeIntake Total 630 ml 640 ml 200 ml BalanceBalance 630 ml 640 ml 200 ml Exam Constitutional: alert, oriented Psych: nl mood/affect Head: normocephalic Eyes: nl conjunctiva Neck: supple, non-tender Respiratory: clear to auscultation Cardiovascular: regular rate and rhythm Gastrointestinal: soft, non-tender Musculoskeletal: other (bilateral lower extremities with dressings in place, cdi ) Extremities: other (hx right foot digit ampuations) Neurological: INTERNATIONAL COORDINATOR II-XII intact, nl mental status, nl speech Results Results 24hrs Laboratory Tests Test 08/21/18 12:44 08/21/18 17:21 08/21/18 21:42 08/22/18 08:02 Bedside Glucose 178 134 122 98 Test 08/22/18 09:26 White Blood Count 7.8 Red Blood Count 3.36 L Hemoglobin 9.2 L Hematocrit 28.4 L Mean Corpuscular Volume 84.5 Mean Corpuscular 27.4 L Hemoglobin Mean Corpuscular 32.4 Hemoglobin Concent Red Cell Distribution 16.2 H Width Platelet Count 279 Mean Platelet Volume 11.3 H Immature Granulocytes % 0.400 Neutrophils % 58.5 Lymphocytes % 20.5 Monocytes % 8.2 Eosinophils % 11.5 H Basophils % 0.9 Nucleated Red Blood 0.0 Cells % Immature Granulocytes # 0.030 Neutrophils # 4.6 Lymphocytes # 1.6 Monocytes # 0.6 Eosinophils # 0.9 H Basophils # 0.1 Nucleated Red Blood 0.0 Cells # Sodium Level 142 Potassium Level 2.9 *L Chloride Level 112 H Carbon Dioxide Level 21 Anion Gap 9 Blood Urea Nitrogen 18 Creatinine 0.78 Est Glomerular Filtrat > 60 Rate mL/min Glucose Level 107 Calcium Level 7.5 L Magnesium Level 1.7 Medications Medication Current Medications Tigecycline 50 mg/ Sodium Chloride 100 ml @ 200 mls/hr Q12 IVPB Last administered on 08/22/18 08:51; Admin Dose 200 MLS/HR; Start 08/19/18 at 09:00 IV Flush (NS 3 ml) 3 ml PER PROTOCOL IV ; Start 08/18/18 at 20:30 Acetaminophen (Tylenol Tab) 650 mg Q6H PRN PO .PAIN 1-3 OR TEMP Last administered on 08/22/18 09:02; Admin Dose 650 MG; Start 08/18/18 at 20:30 Acetaminophen/ Hydrocodone Bitart ([place] (5/325)) 1 tab Q6H PRN PO .MOD PAIN 4- 6; Start 08/18/18 at 20:30 Docusate Sodium (Colace) 100 mg Q12H PRN PO .CONSTIPATION; Start 08/18/18 at 20:30 Bisacodyl (Dulcolax) 5 mg DAILY PRN PO .CONSTIPATION; Start 08/18/18 at 20:30 Acetaminophen (Tylenol Tab) 650 mg Q6H PRN PO .PAIN 1-3 OR TEMP; Start 08/18/18 at 20:30 Ascorbic Acid (Vitamin C) 250 mg DAILY PO Last administered on 08/22/18 08:52; Admin Dose 250 MG; Start 08/19/18 at 09:00 Atorvastatin Calcium (Lipitor) 40 mg HS PO Last administered on 08/21/18at 21:45; Admin Dose 40 MG; Start 08/18/18 at 21:00 Bethanechol Chloride (Urecholine) 10 mg TID PO ; Start 08/18/18 at 21:00 Carvedilol (Coreg) 25 mg BID PO Last administered on 08/22/18 08:53; Admin Dose 25 MG; Start 08/18/18 at 21:00 Citric Acid/ Sodium Citrate (Bicitra) 30 ml BID PO ; Start 08/18/18 at 22:00 Collagenase (Santyl) 1 applic BID TOP ; Start 08/18/18 at 22:00 Gentamicin Sulfate (Gentamicin 0.1% Oint) 1 applic BID TOP ; Start 08/18/18 at 21:00 Nifedipine (Procardia Xl) 60 mg DAILY PO Last administered on 08/22/18 08:53; Admin Dose 60 MG; Start 08/19/18 at 09:00 Sodium Hypochlorite (Dakins Diluted ()) 1 applic BID TP ; Start 08/18/18 at 22:00 Sucralfate (Carafate) 1 gm WITH MEALS PO Last administered on 08/22/18 08:53; Admin Dose 1 GM; Start 08/19/18 at 08:00 Zinc Sulfate (Zinc Sulfate) 220 mg DAILY PO Last administered on 08/22/18 08:53; Admin Dose 220 MG; Start 08/19/18 at 09:00 Diagnostic Test (Pha) (Accu-Chek) 1 ea 02 XX ; Start 08/19/18 at 02:00 Miscellaneous Information 1 ea NOTE XX ; Start 08/18/18 at 22:30 Glucose (Glutose) 15 gm Q15M PRN PO DECREASED GLUCOSE; Start 08/18/18 at 22:30 Glucose (Glutose) 22.5 gm Q15M PRN PO DECREASED GLUCOSE; Start 08/18/18 at 22:30 Dextrose (D50w Syringe) 50 ml Q15M PRN IV DECREASED GLUCOSE; Start 08/18/18 at 22:30 Glucagon (Glucagen) 1 mg Q15M PRN IM DECREASED GLUCOSE; Start 08/18/18 at 22:30 Glucose (Glutose) 15 gm Q15M PRN BUCCAL DECREASED GLUCOSE; Start 08/18/18 at 22:30 Mineral Oil (Eucerin Lotion) 1 applic BID TOP Last administered on 08/22/18at 08:54; Admin Dose 1 APPLIC; Start 08/19/18 at 09:32 Metronidazole 100 ml @ 100 mls/hr Q8 IVPB Last administered on 08/22/18 05:53; Admin Dose 100 MLS/HR; Start 08/20/18 at 14:00 Ceftriaxone Sodium 50 ml @ 100 mls/hr Q24H IVPB Last administered on 08/21/18at 12:46; Admin Dose 100 MLS/HR; Start 08/20/18 at 13:00 Insulin Aspart (Novolog Insulin Pen) (Adult SC Insulin - Mild Algorithm)... AC MEALS AND BEDTIME SC Last administered on 08/21/18at 12:48; Admin Dose 1 UNIT; Start 08/20/18 at 21:00 Alteplase, Recombinant (Cathflo (Activase)) 2 mg MAY REPEAT X1 PRN CATHETER IF CATHETER REMAINS OCCULUDED; Start 08/22/18 at 10:00 KOFFI REYES NP Aug 22, 2018 10:46
[2018-08-22] MEDS: CEFTRIAXONE 1 GM/50 ML (PMX) 50 ML IVPB SCH (12:14)
--- NOTE | 2018-08-22 14:31 | CONS ---
Assessment/Plan Assessment/Plan Hospital Course (Demo Recall) Alert, feels good, no fevers Antimicrobials: Tygacil, Flagyl, Rocephin Microbiology: Wound culture grew multidrug-resistant Acinetobacter, enterococcus, E. coli, Bacteroides Physical examination: Well-developed well-nourished middle-aged woman who is alert in no distress. Head atraumatic normocephalic sclera nonicteric. Neck is supple. Chest rise symmetrical, breath sounds clear. Heart: S1-S2. Abdomen soft bowel sounds present. Extremities with bilateral lower extremities dressi ng clean dry and intact Assessment: 1. Bilateral lower extremities gangrene/Osteomyelitis, status post left transmetatarsal amputation/right fifth and fourth digits amputation and third digit debridement==> Pathology + acute OM R foot 2. Chronic kidney disease, history of hemodialysis 3. Diabetes 4. RUE PICC Plan: Remains stable, had debridement with revision of left TMA/allograft application 08/20/18, continue present care, antibiotics and management per podiatry Consultation Date/Type/Reason Admit Date/Time August 18, 2018 at 19:38 Initial Consult Date Type of Consult id Date/Time of Note DATE: 08/22/18 TIME: 14:29 Exam/Review of Systems Exam Vitals Vital Signs Date Temp Pulse Resp B/P (MAP) Pulse Ox O2 O2 Flow FiO2 Time Delivery Rate 08/22/18 98.0 59 18 137/78 100 Room Air 07:38 (97) Intake and Output 08/21/18 08/21/18 08/22/18 1515:00 23:00 07:00 IntakeIntake Total 630 ml 640 ml 200 ml BalanceBalance 630 ml 640 ml 200 ml Results Result Diagram: 08/22/18 0926 08/22/18 0926 Results 24hrs Laboratory Tests Test 08/21/18 17:21 08/21/18 21:42 08/22/18 08:02 08/22/18 09:26 Bedside Glucose 134 122 98 White Blood Count 7.8 Red Blood Count 3.36 L Hemoglobin 9.2 L Hematocrit 28.4 L Mean Corpuscular Volume 84.5 Mean Corpuscular 27.4 L Hemoglobin Mean Corpuscular 32.4 Hemoglobin Concent Red Cell Distribution 16.2 H Width Platelet Count 279 Mean Platelet Volume 11.3 H Immature Granulocytes % 0.400 Neutrophils % 58.5 Lymphocytes % 20.5 Monocytes % 8.2 Eosinophils % 11.5 H Basophils % 0.9 Nucleated Red Blood 0.0 Cells % Immature Granulocytes # 0.030 Neutrophils # 4.6 Lymphocytes # 1.6 Monocytes # 0.6 Eosinophils # 0.9 H Basophils # 0.1 Nucleated Red Blood 0.0 Cells # Sodium Level 142 Potassium Level 2.9 *L Chloride Level 112 H Carbon Dioxide Level 21 Anion Gap 9 Blood Urea Nitrogen 18 Creatinine 0.78 Est Glomerular Filtrat > 60 Rate mL/min Glucose Level 107 Calcium Level 7.5 L Magnesium Level 1.7 Test 08/22/18 12:31 Bedside Glucose 118 Medications Medication Current Medications Tigecycline 50 mg/ Sodium Chloride 100 ml @ 200 mls/hr Q12 IVPB Last administered on 08/22/18at 08:51; Admin Dose 200 MLS/HR; Start 08/19/18 at 09:00 IV Flush (NS 3 ml) 3 ml PER PROTOCOL IV ; Start 08/18/18 at 20:30 Acetaminophen (Tylenol Tab) 650 mg Q6H PRN PO .PAIN 1-3 OR TEMP Last administered on 08/22/18at 09:02; Admin Dose 650 MG; Start 08/18/18 at 20:30 Acetaminophen/ Hydrocodone Bitart ([place] (5/325)) 1 tab Q6H PRN PO .MOD PAIN 4- 6; Start 08/18/18 at 20:30 Docusate Sodium (Colace) 100 mg Q12H PRN PO .CONSTIPATION; Start 08/18/18 at 20:30 Bisacodyl (Dulcolax) 5 mg DAILY PRN PO .CONSTIPATION; Start 08/18/18 at 20:30 Acetaminophen (Tylenol Tab) 650 mg Q6H PRN PO .PAIN 1-3 OR TEMP; Start 08/18/18 at 20:30 Ascorbic Acid (Vitamin C) 250 mg DAILY PO Last administered on 08/22/18at 08:52; Admin Dose 250 MG; Start 08/19/18 at 09:00 Atorvastatin Calcium (Lipitor) 40 mg HS PO Last administered on 08/21/18at 21:45; Admin Dose 40 MG; Start 08/18/18 at 21:00 Bethanechol Chloride (Urecholine) 10 mg TID PO ; Start 08/18/18 at 21:00 Carvedilol (Coreg) 25 mg BID PO Last administered on 08/22/18 08:53; Admin Dose 25 MG; Start 08/18/18 at 21:00 Citric Acid/ Sodium Citrate (Bicitra) 30 ml BID PO ; Start 08/18/18 at 22:00 Collagenase (Santyl) 1 applic BID TOP ; Start 08/18/18 at 22:00 Gentamicin Sulfate (Gentamicin 0.1% Oint) 1 applic BID TOP ; Start 08/18/18 at 21:00 Nifedipine (Procardia Xl) 60 mg DAILY PO Last administered on 08/22/18at 08:53; Admin Dose 60 MG; Start 08/19/18 at 09:00 Sodium Hypochlorite (Dakins Diluted ()) 1 applic BID TP ; Start 08/18/18 at 22:00 Sucralfate (Carafate) 1 gm WITH MEALS PO Last administered on 08/22/18at 12:31; Admin Dose 1 GM; Start 08/19/18 at 08:00 Zinc Sulfate (Zinc Sulfate) 220 mg DAILY PO Last administered on 08/22/18at 08:53; Admin Dose 220 MG; Start 08/19/18 at 09:00 Diagnostic Test (Pha) (Accu-Chek) 1 ea 02 XX ; Start 08/19/18 at 02:00 Miscellaneous Information 1 ea NOTE XX ; Start 08/18/18 at 22:30 Glucose (Glutose) 15 gm Q15M PRN PO DECREASED GLUCOSE; Start 08/18/18 at 22:30 Glucose (Glutose) 22.5 gm Q15M PRN PO DECREASED GLUCOSE; Start 08/18/18 at 22:30 Dextrose (D50w Syringe) 50 ml Q15M PRN IV DECREASED GLUCOSE; Start 08/18/18 at 22:30 Glucagon (Glucagen) 1 mg Q15M PRN IM DECREASED GLUCOSE; Start 08/18/18 at 22:30 Glucose (Glutose) 15 gm Q15M PRN BUCCAL DECREASED GLUCOSE; Start 08/18/18 at 22:30 Mineral Oil (Eucerin Lotion) 1 applic BID TOP Last administered on 08/22/18at 08:54; Admin Dose 1 APPLIC; Start 08/19/18 at 09:32 Metronidazole 100 ml @ 100 mls/hr Q8 IVPB Last administered on 08/22/18at 13:21; Admin Dose 100 MLS/HR; Start 08/20/18 at 14:00 Ceftriaxone Sodium 50 ml @ 100 mls/hr Q24H IVPB Last administered on 08/22/18at 12:14; Admin Dose 100 MLS/HR; Start 08/20/18 at 13:00 Insulin Aspart (Novolog Insulin Pen) (Adult SC Insulin - Mild Algorithm)... AC MEALS AND BEDTIME SC Last administered on 08/21/18at 12:48; Admin Dose 1 UNIT; Start 08/20/18 at 21:00 Alteplase, Recombinant (Cathflo (Activase)) 2 mg MAY REPEAT X1 PRN CATHETER IF CATHETER REMAINS OCCULUDED Last administered on 08/22/18at 10:50; Admin Dose 2 MG; Start 08/22/18 at 10:00 SEBASTIAN BARRETO NP Aug 22, 2018 14:31
[2018-08-22 14:38] VITALS: BP 162/84; PULSE 68; RESP 16
[2018-08-22 19:54] VITALS: BP 142/83; PULSE 74; RESP 18
[2018-08-22] MEDS: ATORVASTATIN 40 MG TAB PO SCH (21:17)
[2018-08-23] MEDS: ACCU-CHEK XX SCH (01:47)
[2018-08-23 02:00] VITALS: BP 135/84; PULSE 80; RESP 18
[2018-08-23] MEDS: metroNIDAZOLE 500 MG/NS (PMX) 100 ML IVPB SCH ×3 (06:02→21:51)
[2018-08-23 07:58] VITALS: BP 124/70; PULSE 72; RESP 18
[2018-08-23] MEDS: Insulin NOVOLOG SS MILD Algorithm (SS with meals and bedtime) SC SCH ×4 (08:08→21:00)
[2018-08-23] MEDS: SUCRALFATE 1 GM TAB PO SCH ×3 (08:08→17:49)
[2018-08-23] MEDS: NIFEdipine (XL) 60 MG TAB PO SCH (08:10)
[2018-08-23] MEDS: ZINC SULFATE 220 MG CAP PO SCH (08:11)
[2018-08-23] MEDS: ASCORBIC ACID 250 MG TAB PO SCH (08:11)
[2018-08-23] MEDS: CITRIC ACID/NA CITRATE 30 ML CUP PO SCH ×2 (08:11→21:00)
[2018-08-23] MEDS: BETHANECHOL 10 MG TAB PO SCH ×3 (08:11→21:00)
[2018-08-23] MEDS: MINERAL OIL 240 ML LOT TOP SCH ×2 (08:12→21:12)
[2018-08-23] MEDS: TIGECYCLINE 50 MG in SOD CHLORIDE 0.9% 100 ML IVPB SCH ×2 (08:12→21:09)
[2018-08-23] MEDS: GENTAMICIN 0.1% 15 GM OINT TOP SCH ×2 (08:12→21:00)
[2018-08-23] MEDS: DAKINS 0.0125%(1/40) 473 ML SOLUTION TP SCH ×2 (08:12→21:00)
[2018-08-23] MEDS: COLLAGENASE 5 GM (UD JAR) TOP SCH ×2 (08:12→21:00)
[2018-08-23] MEDS: CEFTRIAXONE 1 GM/50 ML (PMX) 50 ML IVPB SCH (12:08)
[2018-08-23 13:44] VITALS: BP 140/78; RESP 20
--- NOTE | 2018-08-23 14:09 | CONS ---
Assessment/Plan Assessment/Plan Hospital Course (Demo Recall) Alert, feels good, no fevers Antimicrobials: Tygacil, Flagyl, Rocephin Microbiology: Wound culture grew multidrug-resistant Acinetobacter, enterococcus, E. coli, Bacteroides Physical examination: Well-developed well-nourished middle-aged woman who is alert in no distress. Head atraumatic normocephalic sclera nonicteric. Neck is supple. Chest rise symmetrical, breath sounds clear. Heart: S1-S2. Abdomen soft bowel sounds present. Extremities with bilateral lower extremities dressi ng clean dry and intact Assessment: 1. Bilateral lower extremities gangrene/Osteomyelitis, status post left transmetatarsal amputation/right fifth and fourth digits amputation and third digit debridement==> Pathology + acute OM R foot 2. Chronic kidney disease, history of hemodialysis 3. Diabetes 4. RUE PICC Plan: Remains stable, s/p debridement with revision of left TMA/allograft application 08/20/18, continue present care, antibiotics, management per podiatry Consultation Date/Type/Reason Admit Date/Time August 18, 2018 at 19:38 Initial Consult Date Type of Consult id Date/Time of Note DATE: 08/23/18 TIME: 14:08 Exam/Review of Systems Exam Vitals Vital Signs Date Temp Pulse Resp B/P (MAP) Pulse Ox O2 O2 Flow FiO2 Time Delivery Rate 08/23/18 97.0 20 140/78 100 Room Air 13:44 (98) 08/23/18 72 07:58 Intake and Output 08/22/18 08/22/18 08/23/18 1515:00 23:00 07:00 IntakeIntake Total 1090 ml 920 ml 100 ml BalanceBalance 1090 ml 920 ml 100 ml Results Result Diagram: 08/22/18 0908/22/18 0926 Results 24hrs Laboratory Tests Test 08/22/18 17:37 08/22/18 21:24 08/23/18 08:06 08/23/18 12:22 Bedside Glucose 171 144 107 175 Medications Medication Current Medications Tigecycline 50 mg/ Sodium Chloride 100 ml @ 200 mls/hr Q12 IVPB Last admini stered on 08/23/18at 08:12; Admin Dose 200 MLS/HR; Start 08/19/18 at 09:00 IV Flush (NS 3 ml) 3 ml PER PROTOCOL IV ; Start 08/18/18 at 20:30 Acetaminophen (Tylenol Tab) 650 mg Q6H PRN PO .PAIN 1-3 OR TEMP Last administered on 08/22/18 09:02; Admin Dose 650 MG; Start 08/18/18 at 20:30 Acetaminophen/ Hydrocodone Bitart ([place] (5/325)) 1 tab Q6H PRN PO .MOD PAIN 4- 6; Start 08/18/18 at 20:30 Docusate Sodium (Colace) 100 mg Q12H PRN PO .CONSTIPATION; Start 08/18/18 at 20:30 Bisacodyl (Dulcolax) 5 mg DAILY PRN PO .CONSTIPATION; Start 08/18/18 at 20:30 Acetaminophen (Tylenol Tab) 650 mg Q6H PRN PO .PAIN 1-3 OR TEMP; Start 08/18/18 at 20:30 Ascorbic Acid (Vitamin C) 250 mg DAILY PO Last administered on 08/23/18 08:11; Admin Dose 250 MG; Start 08/19/18 at 09:00 Atorvastatin Calcium (Lipitor) 40 mg HS PO Last administered on 08/22/18 21:17; Admin Dose 40 MG; Start 08/18/18 at 21:00 Bethanechol Chloride (Urecholine) 10 mg TID PO Last administered on 08/22/18 21:17; Admin Dose 10 MG; Start 08/18/18 at 21:00 Carvedilol (Coreg) 25 mg BID PO Last administered on 08/23/18 08:11; Admin Dose 25 MG; Start 08/18/18 at 21:00 Citric Acid/ Sodium Citrate (Bicitra) 30 ml BID PO ; Start 08/18/18 at 22:00 Collagenase (Santyl) 1 applic BID TOP ; Start 08/18/18 at 22:00 Gentamicin Sulfate (Gentamicin 0.1% Oint) 1 applic BID TOP ; Start 08/18/18 at 21:00 Nifedipine (Procardia Xl) 60 mg DAILY PO Last administered on 08/23/18 08:10; Admin Dose 60 MG; Start 08/19/18 at 09:00 Sodium Hypochlorite (Dakins Diluted ()) 1 applic BID TP ; Start 08/18/18 at 22:00 Sucralfate (Carafate) 1 gm WITH MEALS PO Last administered on 08/23/18 12:20; Admin Dose 1 GM; Start 08/19/18 at 08:00 Zinc Sulfate (Zinc Sulfate) 220 mg DAILY PO Last administered on 08/23/18 08:11; Admin Dose 220 MG; Start 08/19/18 at 09:00 Diagnostic Test (Pha) (Accu-Chek) 1 ea 02 XX ; Start 08/19/18 at 02:00 Miscellaneous Information 1 ea NOTE XX ; Start 08/18/18 at 22:30 Glucose (Glutose) 15 gm Q15M PRN PO DECREASED GLUCOSE; Start 08/18/18 at 22:30 Glucose (Glutose) 22.5 gm Q15M PRN PO DECREASED GLUCOSE; Start 08/18/18 at 22:30 Dextrose (D50w Syringe) 50 ml Q15M PRN IV DECREASED GLUCOSE; Start 08/18/18 at 22:30 Glucagon (Glucagen) 1 mg Q15M PRN IM DECREASED GLUCOSE; Start 08/18/18 at 22:30 Glucose (Glutose) 15 gm Q15M PRN BUCCAL DECREASED GLUCOSE; Start 08/18/18 at 22:30 Mineral Oil (Eucerin Lotion) 1 applic BID TOP Last administered on 08/23/18 08:12; Admin Dose 1 APPLIC; Start 08/19/18 at 09:32 Metronidazole 100 ml @ 100 mls/hr Q8 IVPB Last administered on 08/23/18 13:34; Admin Dose 100 MLS/HR; Start 08/20/18 at 14:00 Ceftriaxone Sodium 50 ml @ 100 mls/hr Q24H IVPB Last administered on 08/23/18 12:08; Admin Dose 100 MLS/HR; Start 08/20/18 at 13:00 Insulin Aspart (Novolog Insulin Pen) (Adult SC Insulin - Mild Algorithm)... AC MEALS AND BEDTIME SC Last administered on 08/23/18 12:26; Admin Dose 1 UNIT; Start 08/20/18 at 21:00 Alteplase, Recombinant (Cathflo (Activase)) 2 mg MAY REPEAT X1 PRN CATHETER IF CATHETER REMAINS OCCULUDED Last administered on 08/22/18at 10:50; Admin Dose 2 MG; Start 08/22/18 at 10:00 SEBASTIAN BARRETO NP Aug 23, 2018 14:09
--- NOTE | 2018-08-23 15:30 | PN ---
Date/Time of Note Date/Time of Note DATE: 08/23/18 TIME: 15:26 Assessment/Plan VTE Prophylaxis Risk score (from Nsg)>0 risk: 7 SCD applied (from Nsg): No Lines/Catheters IV Catheter Type (from Nrsg): PICC Line Urinary Cath still in place: No Assessment/Plan Hospital Course Assessment and plan 1. Bilateral lower extremity gangrene/osteomyelitis. - Patient status post left transmetatarsal amputation/right fifth and fourth digits with third digit debridement. - Continue antibiotics. - Wound culture did show multi resistant Acinetobacter, enterococcus, E. coli, Bacteroides. - Continue with ID consult recommendations. - improving 2. Diabetes. - A1c 6.4. - Continue blood sugar control. 3. Hypertension. - Will continue on antihypertensives. - Will adjust as needed. 4. CKD. - Monitor renal panel. - correct electrolytes as needed 5. History of CVA. - Continue on statin medication. Disposition and plan. Continue antibiotics. Wound care per podiatry. analgesics prn. d/c planning to snf. will f/u caseworker protective services Discussed plan of care with Dr. Ty Result Diagram: 08/22/1892508/22/18925 Results 24hrs Laboratory Tests Test 08/22/18 17:37 08/22/18 21:24 08/23/18 08:06 08/23/18 12:22 Bedside Glucose 171 144 107 175 Subjective 24 Hr Interval Summary Free Text/Dictation no s/s of distress. reports good pain control on legs Exam/Review of Systems Exam Vitals Vital Signs Date Temp Pulse Resp B/P (MAP) Pulse Ox O2 O2 Flow FiO2 Time Delivery Rate 08/23/18 97.0 20 140/78 100 Room Air 13:44 (98) 08/23/18 72 07:58 Intake and Output 08/22/18 08/22/18 08/23/18 1515:00 23:00 07:00 IntakeIntake Total 1090 ml 920 ml 100 ml BalanceBalance 1090 ml 920 ml 100 ml Exam Constitutional: alert, oriented Psych: nl mood/affect Head: normocephalic Eyes: nl conjunctiva Neck: supple, non-tender Respiratory: clear to auscultation Cardiovascular: regular rate and rhythm Gastrointestinal: soft, non-tender Musculoskeletal: other (bilateral lower extremities with dressings in place, cdi ) Extremities: other (hx right foot digit ampuations) Neurological: LOGISTICS SUPPORT II-XII intact, nl mental status, nl speech Results Results 24hrs Laboratory Tests Test 08/22/18 17:37 08/22/18 21:24 08/23/18 08:06 08/23/18 12:22 Bedside Glucose 171 144 107 175 Medications Medication Current Medications Tigecycline 50 mg/ Sodium Chloride 100 ml @ 200 mls/hr Q12 IVPB Last administered on 08/23/18 08:12; Admin Dose 200 MLS/HR; Start 08/19/18 at 09:00 IV Flush (NS 3 ml) 3 ml PER PROTOCOL IV ; Start 08/18/18 at 20:30 Acetaminophen (Tylenol Tab) 650 mg Q6H PRN PO .PAIN 1-3 OR TEMP Last administered on 08/22/18 09:02; Admin Dose 650 MG; Start 08/18/18 at 20:30 Acetaminophen/ Hydrocodone Bitart ([place] (5/325)) 1 tab Q6H PRN PO .MOD PAIN 4- 6; Start 08/18/18 at 20:30 Docusate Sodium (Colace) 100 mg Q12H PRN PO .CONSTIPATION; Start 08/18/18 at 20:30 Bisacodyl (Dulcolax) 5 mg DAILY PRN PO .CONSTIPATION; Start 08/18/18 at 20:30 Acetaminophen (Tylenol Tab) 650 mg Q6H PRN PO .PAIN 1-3 OR TEMP; Start 08/18/18 at 20:30 Ascorbic Acid (Vitamin C) 250 mg DAILY PO Last administered on 08/23/18at 08:11; Admin Dose 250 MG; Start 08/19/18 at 09:00 Atorvastatin Calcium (Lipitor) 40 mg HS PO Last administered on 08/22/18 21:17; Admin Dose 40 MG; Start 08/18/18 at 21:00 Bethanechol Chloride (Urecholine) 10 mg TID PO Last administered on 08/22/18 21:17; Admin Dose 10 MG; Start 08/18/18 at 21:00 Carvedilol (Coreg) 25 mg BID PO Last administered on 08/23/18 08:11; Admin Dose 25 MG; Start 08/18/18 at 21:00 Citric Acid/ Sodium Citrate (Bicitra) 30 ml BID PO ; Start 08/18/18 at 22:00 Collagenase (Santyl) 1 applic BID TOP ; Start 08/18/18 at 22:00 Gentamicin Sulfate (Gentamicin 0.1% Oint) 1 applic BID TOP ; Start 08/18/18 at 21:00 Nifedipine (Procardia Xl) 60 mg DAILY PO Last administered on 08/23/18at 08:10; Admin Dose 60 MG; Start 08/19/18 at 09:00 Sodium Hypochlorite (Dakins Diluted ()) 1 applic BID TP ; Start 08/18/18 at 22:00 Sucralfate (Carafate) 1 gm WITH MEALS PO Last administered on 08/23/18at 12:20; Admin Dose 1 GM; Start 08/19/18 at 08:00 Zinc Sulfate (Zinc Sulfate) 220 mg DAILY PO Last administered on 08/23/18at 0 8:11; Admin Dose 220 MG; Start 08/19/18 at 09:00 Diagnostic Test (Pha) (Accu-Chek) 1 ea 02 XX ; Start 08/19/18 at 02:00 Miscellaneous Information 1 ea NOTE XX ; Start 08/18/18 at 22:30 Glucose (Glutose) 15 gm Q15M PRN PO DECREASED GLUCOSE; Start 08/18/18 at 22:30 Glucose (Glutose) 22.5 gm Q15M PRN PO DECREASED GLUCOSE; Start 08/18/18 at 22:30 Dextrose (D50w Syringe) 50 ml Q15M PRN IV DECREASED GLUCOSE; Start 08/18/18 at 22:30 Glucagon (Glucagen) 1 mg Q15M PRN IM DECREASED GLUCOSE; Start 08/18/18 at 22:30 Glucose (Glutose) 15 gm Q15M PRN BUCCAL DECREASED GLUCOSE; Start 08/18/18 at 22:30 Mineral Oil (Eucerin Lotion) 1 applic BID TOP Last administered on 08/23/18at 08:12; Admin Dose 1 APPLIC; Start 08/19/18 at 09:32 Metronidazole 100 ml @ 100 mls/hr Q8 IVPB Last administered on 08/23/18at 13:34; Admin Dose 100 MLS/HR; Start 08/20/18 at 14:00 Ceftriaxone Sodium 50 ml @ 100 mls/hr Q24H IVPB Last administered on 08/23/18at 12:08; Admin Dose 100 MLS/HR; Start 08/20/18 at 13:00 Insulin Aspart (Novolog Insulin Pen) (Adult SC Insulin - Mild Algorithm)... AC MEALS AND BEDTIME SC Last administered on 08/23/18at 12:26; Admin Dose 1 UNIT; Start 08/20/18 at 21:00 Alteplase, Recombinant (Cathflo (Activase)) 2 mg MAY REPEAT X1 PRN CATHETER IF CATHETER REMAINS OCCULUDED Last administered on 08/22/18at 10:50; Admin Dose 2 MG; Start 08/22/18 at 10:00 KOFFI REYES NP Aug 23, 2018 15:30
[2018-08-23 19:27] VITALS: BP 133/77; PULSE 86; RESP 18
[2018-08-23] MEDS: ATORVASTATIN 40 MG TAB PO SCH (21:11)
[2018-08-24] MEDS: ACCU-CHEK XX SCH (01:16)
[2018-08-24 02:07] VITALS: BP 119/73; PULSE 75; RESP 18
[2018-08-24] MEDS: metroNIDAZOLE 500 MG/NS (PMX) 100 ML IVPB SCH ×3 (05:53→21:12)
[2018-08-24 07:30] VITALS: BP 137/77; PULSE 78; RESP 18
[2018-08-24] MEDS: Insulin NOVOLOG SS MILD Algorithm (SS with meals and bedtime) SC SCH ×4 (08:34→20:27)
[2018-08-24] MEDS: ASCORBIC ACID 250 MG TAB PO SCH (08:35)
[2018-08-24] MEDS: ZINC SULFATE 220 MG CAP PO SCH (08:35)
[2018-08-24] MEDS: TIGECYCLINE 50 MG in SOD CHLORIDE 0.9% 100 ML IVPB SCH ×2 (08:35→20:16)
[2018-08-24] MEDS: SUCRALFATE 1 GM TAB PO SCH ×3 (08:35→16:59)
[2018-08-24] MEDS: COLLAGENASE 5 GM (UD JAR) TOP SCH ×2 (08:36→20:23)
[2018-08-24] MEDS: MINERAL OIL 240 ML LOT TOP SCH ×2 (08:36→20:23)
[2018-08-24] MEDS: NIFEdipine (XL) 60 MG TAB PO SCH (08:36)
[2018-08-24] MEDS: BETHANECHOL 10 MG TAB PO SCH ×3 (08:36→20:23)
[2018-08-24] MEDS: CITRIC ACID/NA CITRATE 30 ML CUP PO SCH ×2 (08:36→20:23)
[2018-08-24] MEDS: GENTAMICIN 0.1% 15 GM OINT TOP SCH ×2 (08:36→20:23)
[2018-08-24] MEDS: DAKINS 0.0125%(1/40) 473 ML SOLUTION TP SCH ×2 (08:37→20:23)
[2018-08-24] MEDS: CEFTRIAXONE 1 GM/50 ML (PMX) 50 ML IVPB SCH (13:13)
[2018-08-24 14:32] VITALS: BP 146/77; PULSE 90; RESP 18
--- NOTE | 2018-08-24 14:35 | CONS ---
Assessment/Plan Assessment/Plan Hospital Course (Demo Recall) Alert, feels good Antimicrobials: Tygacil, Flagyl, Rocephin Microbiology: Wound culture grew multidrug-resistant Acinetobacter, enterococcus, E. coli, Bacteroides Physical examination: Well-developed well-nourished middle-aged woman who is alert in no distress. Head atraumatic normocephalic sclera nonicteric. Neck is supple. Chest rise symmetrical, breath sounds clear. Heart: S1-S2. Abdomen soft bowel sounds present. Extremities with bilateral lower extremities dressing clean dry and intact Assessment: 1. Bilateral lower extremities gangrene/Osteomyelitis, status post left transmetatarsal amputation/right fifth and fourth digits amputation and third digit debridement==> Pathology + acute OM R foot 2. Chronic kidney disease, history of hemodialysis 3. Diabetes 4. RUE PICC Plan: Remains stable, s/p debridement with revision of left TMA/allograft application 08/20/18, ok dc on current antibiotics for 6 weeks, management per podiatry Consultation Date/Type/Reason Admit Date/Time August 18, 2018 at 19:38 Initial Consult Date Type of Consult id Date/Time of Note DATE: 08/24/18 TIME: 14:34 Exam/Review of Systems Exam Vitals Vital Signs Date Temp Pulse Resp B/P (MAP) Pulse Ox O2 O2 Flow FiO2 Time Delivery Rate 08/24/18 98.6 90 18 146/77 100 14:32 (100) 08/23/18 Room Air 13:44 Intake and Output 08/23/18 08/23/18 08/24/18 1515:00 23:00 07:00 IntakeIntake Total 610 ml 580 ml 560 ml BalanceBalance 610 ml 580 ml 560 ml Results Result Diagram: 08/24/18 0516 08/24/18 0516 Results 24hrs Laboratory Tests Test 08/23/18 17:48 08/23/18 21:08 08/24/18 05:16 08/24/18 08:34 Bedside Glucose 118 88 87 White Blood Count 9.8 # Red Blood Count 3.08 L Hemoglobin 8.5 L Hematocrit 26.2 L Mean Corpuscular Volume 85.1 Mean Corpuscular 27.6 L Hemoglobin Mean Corpuscular 32.4 Hemoglobin Concent Red Cell Distribution 16.2 H Width Platelet Count 282 Mean Platelet Volume 11.0 H Immature Granulocytes % 0.500 H Neutrophils % 59.0 Lymphocytes % 22.0 Monocytes % 8.0 Eosinophils % 9.6 H Basophils % 0.9 Nucleated Red Blood 0.0 Cells % Immature Granulocytes # 0.050 H Neutrophils # 5.8 Lymphocytes # 2.2 Monocytes # 0.8 Eosinophils # 0.9 H Basophils # 0.1 Nucleated Red Blood 0.0 Cells # Sodium Level 141 Potassium Level 3.2 L Chloride Level 114 H Carbon Dioxide Level 22 Anion Gap 5 Blood Urea Nitrogen 20 Creatinine 0.90 Est Glomerular Filtrat > 60 Rate mL/min Glucose Level 105 Calcium Level 8.0 L Test 08/24/18 12:53 Bedside Glucose 118 Medications Medication Current Medications Tigecycline 50 mg/ Sodium Chloride 100 ml @ 200 mls/hr Q12 IVPB Last administered on 08/24/18 08:35; Admin Dose 200 MLS/HR; Start 08/19/18 at 09:00 IV Flush (NS 3 ml) 3 ml PER PROTOCOL IV ; Start 08/18/18 at 20:30 Acetaminophen (Tylenol Tab) 650 mg Q6H PRN PO .PAIN 1-3 OR TEMP Last administered on 08/22/18 09:02; Admin Dose 650 MG; Start 08/18/18 at 20:30 Acetaminophen/ Hydrocodone Bitart ([place] (5/325)) 1 tab Q6H PRN PO .MOD PAIN 4- 6; Start 08/18/18 at 20:30 Docusate Sodium (Colace) 100 mg Q12H PRN PO .CONSTIPATION; Start 08/18/18 at 20:30 Bisacodyl (Dulcolax) 5 mg DAILY PRN PO .CONSTIPATION; Start 08/18/18 at 20:30 Acetaminophen (Tylenol Tab) 650 mg Q6H PRN PO .PAIN 1-3 OR TEMP; Start 08/18/18 at 20:30 Ascorbic Acid (Vitamin C) 250 mg DAILY PO Last administered on 08/24/18 08:35; Admin Dose 250 MG; Start 08/19/18 at 09:00 Atorvastatin Calcium (Lipitor) 40 mg HS PO Last administered on 08/23/18 21:11; Admin Dose 40 MG; Start 08/18/18 at 21:00 Bethanechol Chloride (Urecholine) 10 mg TID PO Last administered on 6/2/19at 21:17; Admin Dose 10 MG; Start 08/18/18 at 21:00 Carvedilol (Coreg) 25 mg BID PO Last administered on 08/24/18at 08:38; Admin Dose 25 MG; Start 08/18/18 at 21:00 Citric Acid/ Sodium Citrate (Bicitra) 30 ml BID PO ; Start 08/18/18 at 22:00 Collagenase (Santyl) 1 applic BID TOP ; Start 08/18/18 at 22:00 Gentamicin Sulfate (Gentamicin 0.1% Oint) 1 applic BID TOP ; Start 08/18/18 at 21:00 Nifedipine (Procardia Xl) 60 mg DAILY PO Last administered on 08/24/18at 08:36; Admin Dose 60 MG; Start 08/19/18 at 09:00 Sodium Hypochlorite (Dakins Diluted ()) 1 applic BID TP ; Start 08/18/18 at 22:00 Sucralfate (Carafate) 1 gm WITH MEALS PO Last administered on 08/24/18at 13:13; Admin Dose 1 GM; Start 08/19/18 at 08:00 Zinc Sulfate (Zinc Sulfate) 220 mg DAILY PO Last administered on 08/24/18at 08:35; Admin Dose 220 MG; Start 08/19/18 at 09:00 Diagnostic Test (Pha) (Accu-Chek) 1 ea 02 XX ; Start 08/19/18 at 02:00 Miscellaneous Information 1 ea NOTE XX ; Start 08/18/18 at 22:30 Glucose (Glutose) 15 gm Q15M PRN PO DECREASED GLUCOSE; Start 08/18/18 at 22:30 Glucose (Glutose) 22.5 gm Q15M PRN PO DECREASED GLUCOSE; Start 08/18/18 at 22:30 Dextrose (D50w Syringe) 50 ml Q15M PRN IV DECREASED GLUCOSE; Start 08/18/18 at 22:30 Glucagon (Glucagen) 1 mg Q15M PRN IM DECREASED GLUCOSE; Start 08/18/18 at 22:30 Glucose (Glutose) 15 gm Q15M PRN BUCCAL DECREASED GLUCOSE; Start 08/18/18 at 22:30 Mineral Oil (Eucerin Lotion) 1 applic BID TOP Last administered on 08/24/18at 08:36; Admin Dose 1 APPLIC; Start 08/19/18 at 09:32 Metronidazole 100 ml @ 100 mls/hr Q8 IVPB Last administered on 08/24/18at 14:00; Admin Dose 100 MLS/HR; Start 08/20/18 at 14:00 Ceftriaxone Sodium 50 ml @ 100 mls/hr Q24H IVPB Last administered on 08/24/18at 13:13; Admin Dose 100 MLS/HR; Start 08/20/18 at 13:00 Insulin Aspart (Novolog Insulin Pen) (Adult SC Insulin - Mild Algorithm)... AC MEALS AND BEDTIME SC Last administered on 08/23/18at 12:26; Admin Dose 1 UNIT; Start 08/20/18 at 21:00 Alteplase, Recombinant (Cathflo (Activase)) 2 mg MAY REPEAT X1 PRN CATHETER IF CATHETER REMAINS OCCULUDED Last administered on 08/22/18at 10:50; Admin Dose 2 MG; Start 08/22/18 at 10:00 SEBASTIAN BARRETO NP Aug 24, 2018 14:35
[2018-08-24] MEDS ORDERED: POTASSIUM CHLORIDE (SR) 20 MEQ TAB PO STA (16:03)
--- NOTE | 2018-08-24 16:06 | PDOCDIS ---
Discharge Instructions DIAGNOSIS Discharge Diagnosis 1. Bilateral lower extremity gangrene/osteomyelitis. 2. Diabetes. - A1c 6.4. 3. Hypertension. 4. CKD. 5. History of CVA. CONDITION [id number] Patient Condition: [id number] Stable HOME CARE INSTRUCTIONS: [id number] Diet Instructions: [id number] Low Fat /Cholesterol [id number] Special Diet: [id number] carbohydrate controlled FOLLOW UP/APPOINTMENTS Follow-up Plan 1. Follow up with Dr. Davis in 1-2 weeks KOFFI REYES NP Aug 24, 2018 16:06
[2018-08-24] MEDS ORDERED: CEFT1PIG2 IVPB (16:14)
[2018-08-24] MEDS ORDERED: METR500P3 IV (16:14)
[2018-08-24] MEDS ORDERED: TIGE50VI IV (16:14)
[2018-08-24 19:57] VITALS: BP 116/69; PULSE 82; RESP 18
--- NOTE | 2018-08-24 20:05 | PN ---
Date/Time of Note Date/Time of Note DATE: 08/24/18 TIME: 20:02 Assessment/Plan VTE Prophylaxis Risk score (from Ns)>0 risk: 7 SCD applied (from Ns): Yes Pharmacological prophylaxis: NA/contraindicated Pharm contraindication: other (anemia) Lines/Catheters IV Catheter Type (from Nrs): PICC Line Central line still needed: Yes Urinary Cath still in place: No Assessment/Plan Hospital Course Assessment and plan 1. Bilateral lower extremity gangrene/osteomyelitis. - Patient status post left transmetatarsal amputation/right fifth and fourth digits with third digit debridement. - Continue antibiotics. - Wound culture did show multi resistant Acinetobacter, enterococcus, E. coli, Bacteroides. - Continue with ID consult recommendations. - improving 2. Diabetes. - A1c 6.4. - Continue blood sugar control. 3. Hypertension. - Will continue on antihypertensives. - Will adjust as needed. 4. CKD. - Monitor renal panel. - correct electrolytes as needed 5. History of CVA. - Continue on statin medication. Disposition and plan. Plan to d/c home with [facility] and abx. Awaiting [facility] set up per case management. d/c once set up Discussed plan of care with Dr. Ty Result Diagram: 08/24/18 0516 08/24/18 0516 Results 24hrs Laboratory Tests Test 08/23/18 21:08 08/24/18 05:16 08/24/18 08:34 08/24/18 12:53 Bedside Glucose 88 87 118 White Blood Count 9.8 # Red Blood Count 3.08 L Hemoglobin 8.5 L Hematocrit 26.2 L Mean Corpuscular Volume 85.1 Mean Corpuscular 27.6 L Hemoglobin Mean Corpuscular 32.4 Hemoglobin Concent Red Cell Distribution 16.2 H Width Platelet Count 282 Mean Platelet Volume 11.0 H Immature Granulocytes % 0.500 H Neutrophils % 59.0 Lymphocytes % 22.0 Monocytes % 8.0 Eosinophils % 9.6 H Basophils % 0.9 Nucleated Red Blood 0.0 Cells % Immature Granulocytes # 0.050 H Neutrophils # 5.8 Lymphocytes # 2.2 Monocytes # 0.8 Eosinophils # 0.9 H Basophils # 0.1 Nucleated Red Blood 0.0 Cells # Sodium Level 141 Potassium Level 3.2 L Chloride Level 114 H Carbon Dioxide Level 22 Anion Gap 5 Blood Urea Nitrogen 20 Creatinine 0.90 Est Glomerular Filtrat > 60 Rate mL/min Glucose Level 105 Calcium Level 8.0 L Test 08/24/18 16:59 Bedside Glucose 130 Subjective 24 Hr Interval Summary Free Text/Dictation no specific complaints. resting during interview Exam/Review of Systems Exam Vitals Vital Signs Date Temp Pulse Resp B/P (MAP) Pulse Ox O2 O2 Flow FiO2 Time Delivery Rate 08/24/18 98.3 82 18 116/69 98 19:57 (85) 08/23/18 Room Air 13:44 Intake and Output 08/23/18 08/23/18 08/24/18 1515:00 23:00 07:00 IntakeIntake Total 610 ml 580 ml 560 ml BalanceBalance 610 ml 580 ml 560 ml Exam Constitutional: alert, oriented Psych: nl mood/affect Head: normocephalic Eyes: nl conjunctiva Neck: supple, non-tender Respiratory: clear to auscultation Cardiovascular: regular rate and rhythm Gastrointestinal: soft, non-tender Musculoskeletal: other (bilateral lower extremities with dressings in place, cdi ) Extremities: other (hx right foot digit ampuations) 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, nl mental status, nl speech Results Results 24hrs Laboratory Tests Test 08/23/18 21:08 08/24/18 05:16 08/24/18 08:34 08/24/18 12:53 Bedside Glucose 88 87 118 White Blood Count 9.8 # Red Blood Count 3.08 L Hemoglobin 8.5 L Hematocrit 26.2 L Mean Corpuscular Volume 85.1 Mean Corpuscular 27.6 L Hemoglobin Mean Corpuscular 32.4 Hemoglobin Concent Red Cell Distribution 16.2 H Width Platelet Count 282 Mean Platelet Volume 11.0 H Immature Granulocytes % 0.500 H Neutrophils % 59.0 Lymphocytes % 22.0 Monocytes % 8.0 Eosinophils % 9.6 H Basophils % 0.9 Nucleated Red Blood 0.0 Cells % Immature Granulocytes # 0.050 H Neutrophils # 5.8 Lymphocytes # 2.2 Monocytes # 0.8 Eosinophils # 0.9 H Basophils # 0.1 Nucleated Red Blood 0.0 Cells # Sodium Level 141 Potassium Level 3.2 L Chloride Level 114 H Carbon Dioxide Level 22 Anion Gap 5 Blood Urea Nitrogen 20 Creatinine 0.90 Est Glomerular Filtrat > 60 Rate mL/min Glucose Level 105 Calcium Level 8.0 L Test 08/24/18 16:59 Bedside Glucose 130 Medications Medication Current Medications Tigecycline 50 mg/ Sodium Chloride 100 ml @ 200 mls/hr Q12 IVPB Last administered on 08/24/18 08:35; Admin Dose 200 MLS/HR; Start 08/19/18 at 09:00 IV Flush (NS 3 ml) 3 ml PER PROTOCOL IV ; Start 08/18/18 at 20:30 Acetaminophen (Tylenol Tab) 650 mg Q6H PRN PO .PAIN 1-3 OR TEMP Last administered on 08/22/18 09:02; Admin Dose 650 MG; Start 08/18/18 at 20:30 Acetaminophen/ Hydrocodone Bitart ([place] (5/325)) 1 tab Q6H PRN PO .MOD PAIN 4- 6; Start 08/18/18 at 20:30 Docusate Sodium (Colace) 100 mg Q12H PRN PO .CONSTIPATION; Start 08/18/18 at 20:30 Bisacodyl (Dulcolax) 5 mg DAILY PRN PO .CONSTIPATION; Start 08/18/18 at 20:30 Acetaminophen (Tylenol Tab) 650 mg Q6H PRN PO .PAIN 1-3 OR TEMP; Start 08/18/18 at 20:30 Ascorbic Acid (Vitamin C) 250 mg DAILY PO Last administered on 08/24/18 08:35; Admin Dose 250 MG; Start 08/19/18 at 09:00 Atorvastatin Calcium (Lipitor) 40 mg HS PO Last administered on 08/23/18 21:11; Admin Dose 40 MG; Start 08/18/18 at 21:00 Bethanechol Chloride (Urecholine) 10 mg TID PO Last administered on 08/22/18 21:17; Admin Dose 10 MG; Start 08/18/18 at 21:00 Carvedilol (Coreg) 25 mg BID PO Last administered on 08/24/18 08:38; Admin Dose 25 MG; Start 08/18/18 at 21:00 Citric Acid/ Sodium Citrate (Bicitra) 30 ml BID PO ; Start 08/18/18 at 22:00 Collagenase (Santyl) 1 applic BID TOP ; Start 08/18/18 at 22:00 Gentamicin Sulfate (Gentamicin 0.1% Oint) 1 applic BID TOP ; Start 08/18/18 at 21:00 Nifedipine (Procardia Xl) 60 mg DAILY PO Last administered on 08/24/18 08:36; Admin Dose 60 MG; Start 08/19/18 at 09:00 Sodium Hypochlorite (Dakins Diluted ()) 1 applic BID TP ; Start 08/18/18 at 22:00 Sucralfate (Carafate) 1 gm WITH MEALS PO Last administered on 08/24/18 16:59; Admin Dose 1 GM; Start 08/19/18 at 08:00 Zinc Sulfate (Zinc Sulfate) 220 mg DAILY PO Last administered on 08/24/18 08:35 ; Admin Dose 220 MG; Start 08/19/18 at 09:00 Diagnostic Test (Pha) (Accu-Chek) 1 ea 02 XX ; Start 08/19/18 at 02:00 Miscellaneous Information 1 ea NOTE XX ; Start 08/18/18 at 22:30 Glucose (Glutose) 15 gm Q15M PRN PO DECREASED GLUCOSE; Start 08/18/18 at 22:30 Glucose (Glutose) 22.5 gm Q15M PRN PO DECREASED GLUCOSE; Start 08/18/18 at 22:30 Dextrose (D50w Syringe) 50 ml Q15M PRN IV DECREASED GLUCOSE; Start 08/18/18 at 22:30 Glucagon (Glucagen) 1 mg Q15M PRN IM DECREASED GLUCOSE; Start 08/18/18 at 22:30 Glucose (Glutose) 15 gm Q15M PRN BUCCAL DECREASED GLUCOSE; Start 08/18/18 at 22:30 Mineral Oil (Eucerin Lotion) 1 applic BID TOP Last administered on 08/24/18 08:36; Admin Dose 1 APPLIC; Start 08/19/18 at 09:32 Metronidazole 100 ml @ 100 mls/hr Q8 IVPB Last administered on 08/24/18 14:00; Admin Dose 100 MLS/HR; Start 08/20/18 at 14:00 Ceftriaxone Sodium 50 ml @ 100 mls/hr Q24H IVPB Last administered on 08/24/18 13:13; Admin Dose 100 MLS/HR; Start 08/20/18 at 13:00 Insulin Aspart (Novolog Insulin Pen) (Adult SC Insulin - Mild Algorithm)... AC MEALS AND BEDTIME SC Last administered on 08/23/18 12:26; Admin Dose 1 UNIT; Start 08/20/18 at 21:00 Alteplase, Recombinant (Cathflo (Activase)) 2 mg MAY REPEAT X1 PRN CATHETER IF CATHETER REMAINS OCCULUDED Last administered on 08/22/18at 10:50; Admin Dose 2 MG; Start 08/22/18 at 10:00 KOFFI REYES NP Aug 24, 2018 20:04
[2018-08-24] MEDS: ATORVASTATIN 40 MG TAB PO SCH (20:16)
[2018-08-25 02:16] VITALS: BP 113/75; PULSE 87; RESP 18
[2018-08-25] MEDS: ACCU-CHEK XX SCH (02:30)
[2018-08-25] MEDS: metroNIDAZOLE 500 MG/NS (PMX) 100 ML IVPB SCH ×3 (05:27→22:09)
[2018-08-25] MEDS: Insulin NOVOLOG SS MILD Algorithm (SS with meals and bedtime) SC SCH ×4 (07:00→21:00)
[2018-08-25 08:05] VITALS: BP 118/69; PULSE 78; RESP 20
[2018-08-25] MEDS: MINERAL OIL 240 ML LOT TOP SCH ×2 (08:36→21:08)
[2018-08-25] MEDS: ZINC SULFATE 220 MG CAP PO SCH (08:37)
[2018-08-25] MEDS: ASCORBIC ACID 250 MG TAB PO SCH (08:37)
[2018-08-25] MEDS: SUCRALFATE 1 GM TAB PO SCH ×3 (08:38→17:51)
[2018-08-25] MEDS: NIFEdipine (XL) 60 MG TAB PO SCH (08:38)
[2018-08-25] MEDS: CITRIC ACID/NA CITRATE 30 ML CUP PO SCH ×2 (08:39→21:00)
[2018-08-25] MEDS: GENTAMICIN 0.1% 15 GM OINT TOP SCH ×2 (08:39→21:00)
[2018-08-25] MEDS: BETHANECHOL 10 MG TAB PO SCH ×3 (08:39→21:00)
[2018-08-25] MEDS: TIGECYCLINE 50 MG in SOD CHLORIDE 0.9% 100 ML IVPB SCH ×2 (08:39→20:58)
[2018-08-25] MEDS: DAKINS 0.0125%(1/40) 473 ML SOLUTION TP SCH ×2 (08:39→21:00)
[2018-08-25] MEDS: COLLAGENASE 5 GM (UD JAR) TOP SCH ×2 (08:39→21:00)
[2018-08-25] MEDS: ACETAMINOPHEN 325 MG TAB PO PRN (08:47)
[2018-08-25] MEDS ORDERED: POTASSIUM CHLORIDE (SR) 20 MEQ TAB PO STA (09:40)
[2018-08-25] MEDS: SOD CHLORIDE 0.9% 1,000 ML IV SCH ×2 (10:41→23:20)
[2018-08-25] MEDS: CEFTRIAXONE 1 GM/50 ML (PMX) 50 ML IVPB SCH (13:30)
[2018-08-25 14:32] VITALS: BP 142/80; PULSE 78
--- NOTE | 2018-08-25 16:26 | CONS ---
Assessment/Plan Assessment/Plan Hospital Course (Demo Recall) Alert, feels good Antimicrobials: Tygacil, Flagyl, Rocephin Microbiology: Wound culture grew multidrug-resistant Acinetobacter, enterococcus, E. coli, Bacteroides Physical examination: Well-developed well-nourished middle-aged woman who is alert in no distress. Head atraumatic normocephalic sclera nonicteric. Neck is supple. Chest rise symmetrical, breath sounds clear. Heart: S1-S2. Abdomen soft bowel sounds present. Extremities with bilateral lower extremities dressing clean dry and intact Assessment: 1. Bilateral lower extremities gangrene/Osteomyelitis, status post left transmetatarsal amputation/right fifth and fourth digits amputation and third digit debridement==> Pathology + acute OM R foot 2. Chronic kidney disease, history of hemodialysis 3. Diabetes 4. RUE PICC Plan: Remains stable, s/p debridement with revision of left TMA/allograft application 08/20/18, ok dc on current antibiotics for 6 weeks, management per podiatry Consultation Date/Type/Reason Admit Date/Time August 18, 2018 at 19:38 Initial Consult Date Type of Consult id Date/Time of Note DATE: 08/25/18 TIME: 16:26 Exam/Review of Systems Exam Vitals Vital Signs Date Temp Pulse Resp B/P (MAP) Pulse Ox O2 O2 Flow FiO2 Time Delivery Rate 08/25/18 98.2 78 142/80 100 14:32 (100) 08/25/18 20 08:05 08/23/18 Room Air 13:44 Intake and Output 08/24/18 08/24/18 08/25/18 1515:00 23:00 07:00 IntakeIntake Total 250 ml 1100 ml 900 ml BalanceBalance 250 ml 1100 ml 900 ml Results Result Diagram: 08/25/18 0506 08/25/18 0506 Results 24hrs Laboratory Tests Test 08/24/18 16:59 08/24/18 20:14 08/25/18 02:29 08/25/18 05:06 Bedside Glucose 130 225 H 99 White Blood Count 9.6 Red Blood Count 3.08 L Hemoglobin 8.2 L Hematocrit 25.9 L Mean Corpuscular Volume 84.1 Mean Corpuscular 26.6 L Hemoglobin Mean Corpuscular 31.7 L Hemoglobin Concent Red Cell Distribution 16.6 H Width Platelet Count 291 Mean Platelet Volume 11.5 H Immature Granulocytes % 0.600 H Neutrophils % 55.9 Lymphocytes % 22.6 Monocytes % 9.6 Eosinophils % 10.3 H Basophils % 1.0 Nucleated Red Blood 0.0 Cells % Immature Granulocytes # 0.060 H Neutrophils # 5.4 Lymphocytes # 2.2 Monocytes # 0.9 Eosinophils # 1.0 H Basophils # 0.1 Nucleated Red Blood 0.0 Cells # Sodium Level 141 Potassium Level 3.4 L Chloride Level 116 H Carbon Dioxide Level 22 Anion Gap 3 L Blood Urea Nitrogen 25 H Creatinine 1.10 H Est Glomerular Filtrat 53 L Rate mL/min Glucose Level 100 Calcium Level 7.9 L Test 08/25/18 08:35 08/25/18 13:29 Bedside Glucose 105 120 Medications Medication Current Medications Tigecycline 50 mg/ Sodium Chloride 100 ml @ 200 mls/hr Q12 IVPB Last administered on 08/25/18 08:39; Admin Dose 200 MLS/HR; Start 08/19/18 at 09:00 IV Flush (NS 3 ml) 3 ml PER PROTOCOL IV ; Start 08/18/18 at 20:30 Acetaminophen (Tylenol Tab) 650 mg Q6H PRN PO .PAIN 1-3 OR TEMP Last administered on 08/25/18 08:47; Admin Dose 650 MG; Start 08/18/18 at 20:30 Acetaminophen/ Hydrocodone Bitart ([place] (5/325)) 1 tab Q6H PRN PO .MOD PAIN 4- 6; Start 08/18/18 at 20:30 Docusate Sodium (Colace) 100 mg Q12H PRN PO .CONSTIPATION; Start 08/18/18 at 20:30 Bisacodyl (Dulcolax) 5 mg DAILY PRN PO .CONSTIPATION; Start 08/18/18 at 20:30 Acetaminophen (Tylenol Tab) 650 mg Q6H PRN PO .PAIN 1-3 OR TEMP; Start 08/18/18 at 20:30 Ascorbic Acid (Vitamin C) 250 mg DAILY PO Last administered on 08/25/18at 08:37; Admin Dose 250 MG; Start 08/19/18 at 09:00 Atorvastatin Calcium (Lipitor) 40 mg HS PO Last administered on 08/24/18at 20:16; Admin Dose 40 MG; Start 08/18/18 at 21:00 Bethanechol Chloride (Urecholine) 10 mg TID PO Last administered on 08/22/18at 21:17; Admin Dose 10 MG; Start 08/18/18 at 21:00 Carvedilol (Coreg) 25 mg BID PO Last administered on 08/25/18at 08:38; Admin Dose 25 MG; Start 08/18/18 at 21:00 Citric Acid/ Sodium Citrate (Bicitra) 30 ml BID PO ; Start 08/18/18 at 22:00 Collagenase (Santyl) 1 applic BID TOP ; Start 08/18/18 at 22:00 Gentamicin Sulfate (Gentamicin 0.1% Oint) 1 applic BID TOP ; Start 08/18/18 at 21:00 Nifedipine (Procardia Xl) 60 mg DAILY PO Last administered on 08/25/18at 08:38; Admin Dose 60 MG; Start 08/19/18 at 09:00 Sodium Hypochlorite (Dakins Diluted (40)) 1 applic BID TP ; Start 08/18/18 at 22:00 Sucralfate (Carafate) 1 gm WITH MEALS PO Last administered on 08/25/18at 13:30; Admin Dose 1 GM; Start 08/19/18 at 08:00 Zinc Sulfate (Zinc Sulfate) 220 mg DAILY PO Last administered on 08/25/18at 08:37; Admin Dose 220 MG; Start 08/19/18 at 09:00 Diagnostic Test (Pha) (Accu-Chek) 1 ea 02 XX Last administered on 08/25/18at 02:30; Admin Dose 1 EA; Start 08/19/18 at 02:00 Miscellaneous Information 1 ea NOTE XX ; Start 08/18/18 at 22:30 Glucose (Glutose) 15 gm Q15M PRN PO DECREASED GLUCOSE; Start 08/18/18 at 22:30 Glucose (Glutose) 22.5 gm Q15M PRN PO DECREASED GLUCOSE; Start 08/18/18 at 22:30 Dextrose (D50w Syringe) 50 ml Q15M PRN IV DECREASED GLUCOSE; Start 08/18/18 at 22:30 Glucagon (Glucagen) 1 mg Q15M PRN IM DECREASED GLUCOSE; Start 08/18/18 at 22:30 Glucose (Glutose) 15 gm Q15M PRN BUCCAL DECREASED GLUCOSE; Start 08/18/18 at 22:30 Mineral Oil (Eucerin Lotion) 1 applic BID TOP Last administered on 08/25/18 08:36; Admin Dose 1 APPLIC; Start 08/19/18 at 09:32 Metronidazole 100 ml @ 100 mls/hr Q8 IVPB Last administered on 08/25/18 14:22; Admin Dose 100 MLS/HR; Start 08/20/18 at 14:00 Ceftriaxone Sodium 50 ml @ 100 mls/hr Q24H IVPB Last administered on 08/25/18 13:30; Admin Dose 100 MLS/HR; Start 08/20/18 at 13:00 Insulin Aspart (Novolog Insulin Pen) (Adult SC Insulin - Mild Algorithm)... AC MEALS AND BEDTIME SC Last administered on 08/24/18 20:27; Admin Dose 2 UNIT; Start 08/20/18 at 21:00 Alteplase, Recombinant (Cathflo (Activase)) 2 mg MAY REPEAT X1 PRN CATHETER IF CATHETER REMAINS OCCULUDED Last administered on 08/22/18 10:50; Admin Dose 2 MG; Start 08/22/18 at 10:00 Sodium Chloride 1,000 ml @ 75 mls/hr [id number] IV Last administered on 08/25/18 10:41; Admin Dose 75 MLS/HR; Start 08/25/18 at 10:00 SEBASTIAN BARRETO NP Aug 25, 2018 16:26
[2018-08-25 20:00] VITALS: BP 122/68; PULSE 81; RESP 19
--- NOTE | 2018-08-25 20:10 | PN ---
Date/Time of Note Date/Time of Note DATE: 08/25/18 TIME: 20:05 Assessment/Plan VTE Prophylaxis Risk score (from Ns)>0 risk: 7 SCD applied (from Ns): Yes Pharmacological prophylaxis: NA/contraindicated Pharm contraindication: other (anemia) Lines/Catheters [facility] P[facility] Line Urinary Cath still in place: No Assessment/Plan Hospital Course Assessment and plan 1. Bilateral lower extremity gangrene/osteomyelitis. - Patient status post left transmetatarsal amputation/right fifth and fourth digits with third digit debridement. - Continue antibiotics. - Wound culture did show multi resistant Acinetobacter, enterococcus, E. coli, Bacteroides. - Continue with ID consult recommendations. - improving 2. Diabetes. - A1c 6.4. - Continue blood sugar control. 3. Hypertension. - Will continue on antihypertensives. - Will adjust as needed. 4. CKD. - Monitor renal panel. - correct electrolytes as needed 5. History of CVA. - Continue on statin medication. Disposition and plan. Plan to d/c home with [facility] and abx. Still awaiting set up per case management. Current contracted HHS agencies for patient have declined to accept patient due to previous encounters with patient's with reports of patient's harassing the nurses. Will follow up with case management. Discussed plan of care with Dr. Ty Result Diagram: 08/25/18 0506 08/25/18 0506 Results 24hrs Laboratory Tests Test 08/24/18 20:14 08/25/18 02:29 08/25/18 05:06 08/25/18 08:35 Bedside Glucose 225 H 99 105 White Blood Count 9.6 Red Blood Count 3.08 L Hemoglobin 8.2 L Hematocrit 25.9 L Mean Corpuscular Volume 84.1 Mean Corpuscular 26.6 L Hemoglobin Mean Corpuscular 31.7 L Hemoglobin Concent Red Cell Distribution 16.6 H Width Platelet Count 291 Mean Platelet Volume 11.5 H Immature Granulocytes % 0.600 H Neutrophils % 55.9 Lymphocytes % 22.6 Monocytes % 9.6 Eosinophils % 10.3 H Basophils % 1.0 Nucleated Red Blood 0.0 Cells % Immature Granulocytes # 0.060 H Neutrophils # 5.4 Lymphocytes # 2.2 Monocytes # 0.9 Eosinophils # 1.0 H Basophils # 0.1 Nucleated Red Blood 0.0 Cells # Sodium Level 141 Potassium Level 3.4 L Chloride Level 116 H Carbon Dioxide Level 22 Anion Gap 3 L Blood Urea Nitrogen 25 H Creatinine 1.10 H Est Glomerular Filtrat 53 L Rate mL/min Glucose Level 100 Calcium Level 7.9 L Test 08/25/18 13:29 08/25/18 17:51 Bedside Glucose 120 120 Subjective 24 Hr Interval Summary Free Text/Dictation comfortable at present. no s/s of distress Exam/Review of Systems Exam Vitals Vital Signs Date Temp Pulse Resp B/P (MAP) Pulse Ox O2 O2 Flow FiO2 Time Delivery Rate 08/25/18 98.2 78 142/80 100 14:32 (100) 08/25/18 20 08:05 08/23/18 Room Air 13:44 Intake and Output 08/24/18 08/24/18 08/25/18 1515:00 23:00 07:00 IntakeIntake Total 250 ml 1100 ml 900 ml BalanceBalance 250 ml 1100 ml 900 ml Exam Constitutional: alert, oriented Psych: nl mood/affect Head: normocephalic Eyes: nl conjunctiva Neck: supple, non-tender Respiratory: clear to auscultation Cardiovascular: regular rate and rhythm Gastrointestinal: soft, non-tender Musculoskeletal: other (bilateral lower extremities with dressings in place, cdi ) Extremities: other (hx right foot digit ampuations) 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, nl mental status, nl speech Results Results 24hrs Laboratory Tests Test 08/24/18 20:14 08/25/18 02:29 08/25/18 05:06 08/25/18 08:35 Bedside Glucose 225 H 99 105 White Blood Count 9.6 Red Blood Count 3.08 L Hemoglobin 8.2 L Hematocrit 25.9 L Mean Corpuscular Volume 84.1 Mean Corpuscular 26.6 L Hemoglobin Mean Corpuscular 31.7 L Hemoglobin Concent Red Cell Distribution 16.6 H Width Platelet Count 291 Mean Platelet Volume 11.5 H Immature Granulocytes % 0.600 H Neutrophils % 55.9 Lymphocytes % 22.6 Monocytes % 9.6 Eosinophils % 10.3 H Basophils % 1.0 Nucleated Red Blood 0.0 Cells % Immature Granulocytes # 0.060 H Neutrophils # 5.4 Lymphocytes # 2.2 Monocytes # 0.9 Eosinophils # 1.0 H Basophils # 0.1 Nucleated Red Blood 0.0 Cells # Sodium Level 141 Potassium Level 3.4 L Chloride Level 116 H Carbon Dioxide Level 22 Anion Gap 3 L Blood Urea Nitrogen 25 H Creatinine 1.10 H Est Glomerular Filtrat 53 L Rate mL/min Glucose Level 100 Calcium Level 7.9 L Test 08/25/18 13:29 08/25/18 17:51 Bedside Glucose 120 120 Medications Medication Current Medications Tigecycline 50 mg/ Sodium Chloride 100 ml @ 200 mls/hr Q12 IVPB Last administered on 08/25/18 08:39; Admin Dose 200 MLS/HR; Start 08/19/18 at 09:00 IV Flush (NS 3 ml) 3 ml PER PROTOCOL IV ; Start 08/18/18 at 20:30 Acetaminophen (Tylenol Tab) 650 mg Q6H PRN PO .PAIN 1-3 OR TEMP Last administered on 08/25/18 08:47; Admin Dose 650 MG; Start 08/18/18 at 20:30 Acetaminophen/ Hydrocodone Bitart ([place] (5/325)) 1 tab Q6H PRN PO .MOD PAIN 4- 6; Start 08/18/18 at 20:30 Docusate Sodium (Colace) 100 mg Q12H PRN PO .CONSTIPATION; Start 08/18/18 at 20:30 Bisacodyl (Dulcolax) 5 mg DAILY PRN PO .CONSTIPATION; Start 08/18/18 at 20:30 Acetaminophen (Tylenol Tab) 650 mg Q6H PRN PO .PAIN 1-3 OR TEMP; Start 08/18/18 at 20:30 Ascorbic Acid (Vitamin C) 250 mg DAILY PO Last administered on 08/25/18 08:37; Admin Dose 250 MG; Start 08/19/18 at 09:00 Atorvastatin Calcium (Lipitor) 40 mg HS PO Last administered on 08/24/18 20:16; Admin Dose 40 MG; Start 08/18/18 at 21:00 Bethanechol Chloride (Urecholine) 10 mg TID PO Last administered on 08/22/18 21:17; Admin Dose 10 MG; Start 08/18/18 at 21:00 Carvedilol (Coreg) 25 mg BID PO Last administered on 08/25/18 08:38; Admin Dose 25 MG; Start 08/18/18 at 21:00 Citric Acid/ Sodium Citrate (Bicitra) 30 ml BID PO ; Start 08/18/18 at 22:00 Collagenase (Santyl) 1 applic BID TOP ; Start 08/18/18 at 22:00 Gentamicin Sulfate (Gentamicin 0.1% Oint) 1 applic BID TOP ; Start 08/18/18 at 21:00 Nifedipine (Procardia Xl) 60 mg DAILY PO Last administered on 08/25/18at 08:38; Admin Dose 60 MG; Start 08/19/18 at 09:00 Sodium Hypochlorite (Dakins Diluted ()) 1 applic BID TP ; Start 08/18/18 at 22:00 Sucralfate (Carafate) 1 gm WITH MEALS PO Last administered on 08/25/18 17:51; Admin Dose 1 GM; Start 08/19/18 at 08:00 Zinc Sulfate (Zinc Sulfate) 220 mg DAILY PO Last administered on 08/25/18 08:37; Admin Dose 220 MG; Start 08/19/18 at 09:00 Diagnostic Test (Pha) (Accu-Chek) 1 ea 02 XX Last administered on 08/25/18at 02:30; Admin Dose 1 EA; Start 08/19/18 at 02:00 Miscellaneous Information 1 ea NOTE XX ; Start 08/18/18 at 22:30 Glucose (Glutose) 15 gm Q15M PRN PO DECREASED GLUCOSE; Start 08/18/18 at 22:30 Glucose (Glutose) 22.5 gm Q15M PRN PO DECREASED GLUCOSE; Start 08/18/18 at 22:30 Dextrose (D50w Syringe) 50 ml Q15M PRN IV DECREASED GLUCOSE; Start 08/18/18 at 22:30 Glucagon (Glucagen) 1 mg Q15M PRN IM DECREASED GLUCOSE; Start 08/18/18 at 22:30 Glucose (Glutose) 15 gm Q15M PRN BUCCAL DECREASED GLUCOSE; Start 08/18/18 at 22:30 Mineral Oil (Eucerin Lotion) 1 applic BID TOP Last administered on 08/25/18at 08:36; Admin Dose 1 APPLIC; Start 08/19/18 at 09:32 Metronidazole 100 ml @ 100 mls/hr Q8 IVPB Last administered on 08/25/18at 14:22; Admin Dose 100 MLS/HR; Start 08/20/18 at 14:00 Ceftriaxone Sodium 50 ml @ 100 mls/hr Q24H IVPB Last administered on 08/25/18 13:30; Admin Dose 100 MLS/HR; Start 08/20/18 at 13:00 Insulin Aspart (Novolog Insulin Pen) (Adult SC Insulin - Mild Algorithm)... AC MEALS AND BEDTIME SC Last administered on 08/24/18 20:27; Admin Dose 2 UNIT; Start 08/20/18 at 21:00 Alteplase, Recombinant (Cathflo (Activase)) 2 mg MAY REPEAT X1 PRN CATHETER IF CATHETER REMAINS OCCULUDED Last administered on 08/22/18 10:50; Admin Dose 2 MG; Start 08/22/18 at 10:00 Sodium Chloride 1,000 ml @ 75 mls/hr [id number] IV Last administered on 08/25/18 10:41; Admin Dose 75 MLS/HR; Start 08/25/18 at 10:00 KOFFI REYES NP Aug 25, 2018 20:10
[2018-08-25] MEDS: ATORVASTATIN 40 MG TAB PO SCH (20:57)
[2018-08-26 02:00] VITALS: BP 118/63; PULSE 77; RESP 18
[2018-08-26] MEDS: ACCU-CHEK XX SCH (02:00)
[2018-08-26] MEDS: SOD CHLORIDE 0.9% 1,000 ML IV SCH ×3 (03:48→20:32)
[2018-08-26] MEDS: metroNIDAZOLE 500 MG/NS (PMX) 100 ML IVPB SCH ×3 (05:40→21:52)
[2018-08-26 08:18] VITALS: BP 139/79; PULSE 86; RESP 18
[2018-08-26] MEDS: CITRIC ACID/NA CITRATE 30 ML CUP PO SCH ×2 (08:47→20:46)
[2018-08-26] MEDS: SUCRALFATE 1 GM TAB PO SCH ×3 (08:47→17:57)
[2018-08-26] MEDS: Insulin NOVOLOG SS MILD Algorithm (SS with meals and bedtime) SC SCH ×4 (08:47→20:46)
[2018-08-26] MEDS: TIGECYCLINE 50 MG in SOD CHLORIDE 0.9% 100 ML IVPB SCH ×2 (08:47→20:32)
[2018-08-26] MEDS: NIFEdipine (XL) 60 MG TAB PO SCH (08:48)
[2018-08-26] MEDS: BETHANECHOL 10 MG TAB PO SCH ×3 (08:48→20:46)
[2018-08-26] MEDS: ZINC SULFATE 220 MG CAP PO SCH (08:48)
[2018-08-26] MEDS: ASCORBIC ACID 250 MG TAB PO SCH (08:48)
[2018-08-26] MEDS: GENTAMICIN 0.1% 15 GM OINT TOP SCH ×2 (08:49→20:46)
[2018-08-26] MEDS: MINERAL OIL 240 ML LOT TOP SCH ×2 (08:49→20:45)
[2018-08-26] MEDS: DAKINS 0.0125%(1/40) 473 ML SOLUTION TP SCH ×2 (08:50→20:46)
[2018-08-26] MEDS: COLLAGENASE 5 GM (UD JAR) TOP SCH ×2 (08:50→20:46)
[2018-08-26] MEDS: CEFTRIAXONE 1 GM/50 ML (PMX) 50 ML IVPB SCH (13:13)
--- NOTE | 2018-08-26 13:52 | CONS ---
Assessment/Plan Assessment/Plan Hospital Course (Demo Recall) Alert, feels good, nad Antimicrobials: Tygacil, Flagyl, Rocephin Microbiology: Wound culture grew multidrug-resistant Acinetobacter, enterococcus, E. coli, Bacteroides Physical examination: Well-developed well-nourished middle-aged woman who is alert in no distress. Head atraumatic normocephalic sclera nonicteric. Neck is supple. Chest rise symmetrical, breath sounds clear. Heart: S1-S2. Abdomen soft bowel sounds present. Extremities with bilateral lower extremities dressing clean dry and intact Assessment: 1. Bilateral lower extremities gangrene/Osteomyelitis, status post left transmetatarsal amputation/right fifth and fourth digits amputation and third digit debridement==> Pathology + acute OM R foot 2. Chronic kidney disease, history of hemodialysis 3. Diabetes 4. RUE PICC Plan: Remains stable, s/p debridement with revision of left TMA/allograft application 08/20/18, ok dc on current antibiotics for 6 weeks, management per podiatry Consultation Date/Type/Reason Admit Date/Time August 18, 2018 at 19:38 Initial Consult Date Type of Consult id Date/Time of Note DATE: 08/26/18 TIME: 13:52 Exam/Review of Systems Exam Vitals Vital Signs Date Temp Pulse Resp B/P (MAP) Pulse Ox O2 O2 Flow FiO2 Time Delivery Rate 08/26/18 98.1 86 18 139/79 100 08:18 (99) 08/26/18 Room Air 02:00 Intake and Output 08/25/18 08/25/18 08/26/18 1515:00 23:00 07:00 IntakeIntake Total 840 ml 1305 ml 875 ml BalanceBalance 840 ml 1305 ml 875 ml Results Result Diagram: 08/26/18 0511 08/26/18 0511 Results 24hrs Laboratory Tests Test 08/25/18 17:51 08/25/18 20:59 08/26/18 05:11 08/26/18 08:45 Bedside Glucose 120 164 106 White Blood Count 9.3 Red Blood Count 3.01 L Hemoglobin 8.2 L Hematocrit 25.3 L Mean Corpuscular Volume 84.1 Mean Corpuscular 27.2 L Hemoglobin Mean Corpuscular 32.4 Hemoglobin Concent Red Cell Distribution 16.5 H Width Platelet Count 288 Mean Platelet Volume 11.1 H Immature Granulocytes % 0.400 Neutrophils % 59.6 Lymphocytes % 18.7 Monocytes % 9.5 Eosinophils % 10.9 H Basophils % 0.9 Nucleated Red Blood 0.0 Cells % Immature Granulocytes # 0.040 H Neutrophils # 5.5 Lymphocytes # 1.7 Monocytes # 0.9 Eosinophils # 1.0 H Basophils # 0.1 Nucleated Red Blood 0.0 Cells # Sodium Level 141 Potassium Level 3.5 Chloride Level 115 H Carbon Dioxide Level 21 Anion Gap 5 Blood Urea Nitrogen 22 H Creatinine 0.95 Est Glomerular Filtrat > 60 Rate mL/min Glucose Level 136 Calcium Level 7.5 L Test 08/26/18 13:15 Bedside Glucose 119 Medications Medication Current Medications Tigecycline 50 mg/ Sodium Chloride 100 ml @ 200 mls/hr Q12 IVPB Last administered on 08/26/18 08:47; Admin Dose 200 MLS/HR; Start 08/19/18 at 09:00 IV Flush (NS 3 ml) 3 ml PER PROTOCOL IV ; Start 08/18/18 at 20:30 Acetaminophen (Tylenol Tab) 650 mg Q6H PRN PO .PAIN 1-3 OR TEMP Last administered on 08/25/18 08:47; Admin Dose 650 MG; Start 08/18/18 at 20:30 Acetaminophen/ Hydrocodone Bitart ([place] (5/325)) 1 tab Q6H PRN PO .MOD PAIN 4- 6; Start 08/18/18 at 20:30 Docusate Sodium (Colace) 100 mg Q12H PRN PO .CONSTIPATION; Start 08/18/18 at 20:30 Bisacodyl (Dulcolax) 5 mg DAILY PRN PO .CONSTIPATION; Start 08/18/18 at 20:30 Acetaminophen (Tylenol Tab) 650 mg Q6H PRN PO .PAIN 1-3 OR TEMP; Start 08/18/18 at 20:30 Ascorbic Acid (Vitamin C) 250 mg DAILY PO Last administered on 08/26/18 08:48; Admin Dose 250 MG; Start 08/19/18 at 09:00 Atorvastatin Calcium (Lipitor) 40 mg HS PO Last administered on 08/25/18 20:57; Admin Dose 40 MG; Start 08/18/18 at 21:00 Bethanechol Chloride (Urecholine) 10 mg TID PO Last administered on 08/22/18 21:17; Admin Dose 10 MG; Start 08/18/18 at 21:00 Carvedilol (Coreg) 25 mg BID PO Last administered on 08/26/18 08:48; Admin Dose 25 MG; Start 08/18/18 at 21:00 Citric Acid/ Sodium Citrate (Bicitra) 30 ml BID PO ; Start 08/18/18 at 22:00 Collagenase (Santyl) 1 applic BID TOP ; Start 08/18/18 at 22:00 Gentamicin Sulfate (Gentamicin 0.1% Oint) 1 applic BID TOP ; Start 08/18/18 at 21:00 Nifedipine (Procardia Xl) 60 mg DAILY PO Last administered on 08/26/18 08:48; Admin Dose 60 MG; Start 08/19/18 at 09:00 Sodium Hypochlorite (Dakins Diluted ()) 1 applic BID TP ; Start 08/18/18 at 22:00 Sucralfate (Carafate) 1 gm WITH MEALS PO Last administered on 08/26/18 12:21; Admin Dose 1 GM; Start 08/19/18 at 08:00 Zinc Sulfate (Zinc Sulfate) 220 mg DAILY PO Last administered on 08/26/18 08:48; Admin Dose 220 MG; Start 08/19/18 at 09:00 Diagnostic Test (Pha) (Accu-Chek) 1 ea 02 XX Last administered on 08/25/18 02:30; Admin Dose 1 EA; Start 08/19/18 at 02:00 Miscellaneous Information 1 ea NOTE XX ; Start 08/18/18 at 22:30 Glucose (Glutose) 15 gm Q15M PRN PO DECREASED GLUCOSE; Start 08/18/18 at 22:30 Glucose (Glutose) 22.5 gm Q15M PRN PO DECREASED GLUCOSE; Start 08/18/18 at 22:30 Dextrose (D50w Syringe) 50 ml Q15M PRN IV DECREASED GLUCOSE; Start 08/18/18 at 22:30 Glucagon (Glucagen) 1 mg Q15M PRN IM DECREASED GLUCOSE; Start 08/18/18 at 22:30 Glucose (Glutose) 15 gm Q15M PRN BUCCAL DECREASED GLUCOSE; Start 08/18/18 at 22:30 Mineral Oil (Eucerin Lotion) 1 applic BID TOP Last administered on 08/26/18 08:49; Admin Dose 1 APPLIC; Start 08/19/18 at 09:32 Metronidazole 100 ml @ 100 mls/hr Q8 IVPB Last administered on 08/26/18at 05:40; Admin Dose 100 MLS/HR; Start 08/20/18 at 14:00 Ceftriaxone Sodium 50 ml @ 100 mls/hr Q24H IVPB Last administered on 08/26/18at 13:13; Admin Dose 100 MLS/HR; Start 08/20/18 at 13:00 Insulin Aspart (Novolog Insulin Pen) (Adult SC Insulin - Mild Algorithm)... AC MEALS AND BEDTIME SC Last administered on 08/24/18 20:27; Admin Dose 2 UNIT; Start 08/20/18 at 21:00 Alteplase, Recombinant (Cathflo (Activase)) 2 mg MAY REPEAT X1 PRN CATHETER IF CATHETER REMAINS OCCULUDED Last administered on 08/22/18 10:50; Admin Dose 2 MG; Start 08/22/18 at 10:00 Sodium Chloride 1,000 ml @ 75 mls/hr [id number] IV Last administered on 08/26/18at 03:48; Admin Dose 75 MLS/HR; Start 08/25/18 at 10:00 SEBASTIAN BARRETO NP Aug 26, 2018 13:52
--- NOTE | 2018-08-26 14:33 | PN ---
Date/Time of Note Date/Time of Note DATE: 08/26/18 TIME: 14:30 Assessment/Plan VTE Prophylaxis Risk score (from Nsg)>0 risk: 6 SCD applied (from Nsg): Yes Pharmacological prophylaxis: heparin Lines/Catheters IV Catheter Type (from Nrsg): PICC Line Central line still needed: Yes Urinary Cath still in place: No Assessment/Plan Hospital Course Assessment and plan 1. Bilateral lower extremity gangrene/osteomyelitis. - Patient status post left transmetatarsal amputation/right fifth and fourth digits with third digit debridement. - Continue antibiotics. - Wound culture did show multi resistant Acinetobacter, enterococcus, E. coli, Bacteroides. - Continue with ID consult recommendations. - improving 2. Diabetes. - A1c 6.4. - Continue blood sugar control. 3. Hypertension. - Will continue on antihypertensives. - Will adjust as needed. 4. CKD. - Monitor renal panel. - correct electrolytes as needed 5. History of CVA. - Continue on statin medication. Disposition and plan. Plan to d/c home with [facility] and abx. Still awaiting set up per case management. (Current contracted [facility] agencies for patient have declined to accept patient due to previous encounters with patient's with reports of patient's harassing the nurses). Awaiting accepting [facility] agency who can provide care for patient. ok to d/c from hospitalist standpoint Discussed plan of care with Dr. Ty Result Diagram: 08/26/18 0511 08/26/18 0511 Results 24hrs Laboratory Tests Test 08/25/18 17:51 08/25/18 20:59 08/26/18 05:11 08/26/18 08:45 Bedside Glucose 120 164 106 White Blood Count 9.3 Red Blood Count 3.01 L Hemoglobin 8.2 L Hematocrit 25.3 L Mean Corpuscular Volume 84.1 Mean Corpuscular 27.2 L Hemoglobin Mean Corpuscular 32.4 Hemoglobin Concent Red Cell Distribution 16.5 H Width Platelet Count 288 Mean Platelet Volume 11.1 H Immature Granulocytes % 0.400 Neutrophils % 59.6 Lymphocytes % 18.7 Monocytes % 9.5 Eosinophils % 10.9 H Basophils % 0.9 Nucleated Red Blood 0.0 Cells % Immature Granulocytes # 0.040 H Neutrophils # 5.5 Lymphocytes # 1.7 Monocytes # 0.9 Eosinophils # 1.0 H Basophils # 0.1 Nucleated Red Blood 0.0 Cells # Sodium Level 141 Potassium Level 3.5 Chloride Level 115 H Carbon Dioxide Level 21 Anion Gap 5 Blood Urea Nitrogen 22 H Creatinine 0.95 Est Glomerular Filtrat > 60 Rate mL/min Glucose Level 136 Calcium Level 7.5 L Test 08/26/18 13:15 Bedside Glucose 119 Subjective 24 Hr Interval Summary Free Text/Dictation no s/s of distress. no specific complaints Exam/Review of Systems Exam Vitals Vital Signs Date Temp Pulse Resp B/P (MAP) Pulse Ox O2 O2 Flow FiO2 Time Delivery Rate 08/26/18 98.1 86 18 139/79 100 08:18 (99) 08/26/18 Room Air 02:00 Intake and Output 08/25/18 08/25/18 08/26/18 1515:00 23:00 07:00 IntakeIntake Total 840 ml 1305 ml 875 ml BalanceBalance 840 ml 1305 ml 875 ml Exam Constitutional: alert, oriented Psych: nl mood/affect Head: normocephalic Eyes: nl conjunctiva Neck: supple, non-tender Respiratory: clear to auscultation Cardiovascular: regular rate and rhythm Gastrointestinal: soft, non-tender Musculoskeletal: other (bilateral lower extremities with dressings in place, cdi ) Extremities: other (hx right foot digit amputations) Neurological: [employer]LY[employer] II-XII intact, nl mental status, nl speech Results Results 24hrs Laboratory Tests Test 08/25/18 17:51 08/25/18 20:59 08/26/18 05:11 08/26/18 08:45 Bedside Glucose 120 164 106 White Blood Count 9.3 Red Blood Count 3.01 L Hemoglobin 8.2 L Hematocrit 25.3 L Mean Corpuscular Volume 84.1 Mean Corpuscular 27.2 L Hemoglobin Mean Corpuscular 32.4 Hemoglobin Concent Red Cell Distribution 16.5 H Width Platelet Count 288 Mean Platelet Volume 11.1 H Immature Granulocytes % 0.400 Neutrophils % 59.6 Lymphocytes % 18.7 Monocytes % 9.5 Eosinophils % 10.9 H Basophils % 0.9 Nucleated Red Blood 0.0 Cells % Immature Granulocytes # 0.040 H Neutrophils # 5.5 Lymphocytes # 1.7 Monocytes # 0.9 Eosinophils # 1.0 H Basophils # 0.1 Nucleated Red Blood 0.0 Cells # Sodium Level 141 Potassium Level 3.5 Chloride Level 115 H Carbon Dioxide Level 21 Anion Gap 5 Blood Urea Nitrogen 22 H Creatinine 0.95 Est Glomerular Filtrat > 60 Rate mL/min Glucose Level 136 Calcium Level 7.5 L Test 08/26/18 13:15 Bedside Glucose 119 Medications Medication Current Medications Tigecycline 50 mg/ Sodium Chloride 100 ml @ 200 mls/hr Q12 IVPB Last administered on 08/26/18 08:47; Admin Dose 200 MLS/HR; Start 08/19/18 at 09:00 IV Flush (NS 3 ml) 3 ml PER PROTOCOL IV ; Start 08/18/18 at 20:30 Acetaminophen (Tylenol Tab) 650 mg Q6H PRN PO .PAIN 1-3 OR TEMP Last administered on 08/25/18 08:47; Admin Dose 650 MG; Start 08/18/18 at 20:30 Acetaminophen/ Hydrocodone Bitart ([place] (5/325)) 1 tab Q6H PRN PO .MOD PAIN 4- 6; Start 08/18/18 at 20:30 Docusate Sodium (Colace) 100 mg Q12H PRN PO .CONSTIPATION; Start 08/18/18 at 20:30 Bisacodyl (Dulcolax) 5 mg DAILY PRN PO .CONSTIPATION; Start 08/18/18 at 20:30 Acetaminophen (Tylenol Tab) 650 mg Q6H PRN PO .PAIN 1-3 OR TEMP; Start 08/18/18 at 20:30 Ascorbic Acid (Vitamin C) 250 mg DAILY PO Last administered on 08/26/18 08:48; Admin Dose 250 MG; Start 08/19/18 at 09:00 Atorvastatin Calcium (Lipitor) 40 mg HS PO Last administered on 08/25/18 20:57; Admin Dose 40 MG; Start 08/18/18 at 21:00 Bethanechol Chloride (Urecholine) 10 mg TID PO Last administered on 08/22/18 21:17; Admin Dose 10 MG; Start 08/18/18 at 21:00 Carvedilol (Coreg) 25 mg BID PO Last administered on 08/26/18 08:48; Admin Dose 25 MG; Start 08/18/18 at 21:00 Citric Acid/ Sodium Citrate (Bicitra) 30 ml BID PO ; Start 08/18/18 at 22:00 Collagenase (Santyl) 1 applic BID TOP ; Start 08/18/18 at 22:00 Gentamicin Sulfate (Gentamicin 0.1% Oint) 1 applic BID TOP ; Start 08/18/18 at 21:00 Nifedipine (Procardia Xl) 60 mg DAILY PO Last administered on 08/26/18 08:48; Admin Dose 60 MG; Start 08/19/18 at 09:00 Sodium Hypochlorite (Dakins Diluted ()) 1 applic BID TP ; Start 08/18/18 at 22:00 Sucralfate (Carafate) 1 gm WITH MEALS PO Last administered on 08/26/18 12:21; Admin Dose 1 GM; Start 08/19/18 at 08:00 Zinc Sulfate (Zinc Sulfate) 220 mg DAILY PO Last administered on 08/26/18 08:48 ; Admin Dose 220 MG; Start 08/19/18 at 09:00 Diagnostic Test (Pha) (Accu-Chek) 1 ea 02 XX Last administered on 08/25/18at 02:30; Admin Dose 1 EA; Start 08/19/18 at 02:00 Miscellaneous Information 1 ea NOTE XX ; Start 08/18/18 at 22:30 Glucose (Glutose) 15 gm Q15M PRN PO DECREASED GLUCOSE; Start 08/18/18 at 22:30 Glucose (Glutose) 22.5 gm Q15M PRN PO DECREASED GLUCOSE; Start 08/18/18 at 22:30 Dextrose (D50w Syringe) 50 ml Q15M PRN IV DECREASED GLUCOSE; Start 08/18/18 at 22:30 Glucagon (Glucagen) 1 mg Q15M PRN IM DECREASED GLUCOSE; Start 08/18/18 at 22:30 Glucose (Glutose) 15 gm Q15M PRN BUCCAL DECREASED GLUCOSE; Start 08/18/18 at 22:30 Mineral Oil (Eucerin Lotion) 1 applic BID TOP Last administered on 08/26/18at 08:49; Admin Dose 1 APPLIC; Start 08/19/18 at 09:32 Metronidazole 100 ml @ 100 mls/hr Q8 IVPB Last administered on 08/26/18 05:40; Admin Dose 100 MLS/HR; Start 08/20/18 at 14:00 Ceftriaxone Sodium 50 ml @ 100 mls/hr Q24H IVPB Last administered on 08/26/18at 13:13; Admin Dose 100 MLS/HR; Start 08/20/18 at 13:00 Insulin Aspart (Novolog Insulin Pen) (Adult SC Insulin - Mild Algorithm)... AC MEALS AND BEDTIME SC Last administered on 08/24/18at 20:27; Admin Dose 2 UNIT; Start 08/20/18 at 21:00 Alteplase, Recombinant (Cathflo (Activase)) 2 mg MAY REPEAT X1 PRN CATHETER IF C ATHETER REMAINS OCCULUDED Last administered on 08/22/18at 10:50; Admin Dose 2 MG; Start 08/22/18 at 10:00 Sodium Chloride 1,000 ml @ 75 mls/hr [id number] IV Last administered on 08/26/18at 03:48; Admin Dose 75 MLS/HR; Start 08/25/18 at 10:00 KOFFI REYES NP Aug 26, 2018 14:33
[2018-08-26 14:46] VITALS: BP 135/83; PULSE 88; RESP 18
[2018-08-26 20:00] VITALS: BP 129/71; PULSE 85; RESP 18
[2018-08-26] MEDS: ATORVASTATIN 40 MG TAB PO SCH (20:30)
[2018-08-26] MEDS: HEPARIN 5,000 UNIT/1 ML VIAL SC SCH (20:43)
[2018-08-27 02:00] VITALS: BP 116/68; PULSE 75; RESP 18
[2018-08-27] MEDS: SOD CHLORIDE 0.9% 1,000 ML IV SCH (02:00)
[2018-08-27] MEDS: ACCU-CHEK XX SCH (02:00)
[2018-08-27] MEDS: metroNIDAZOLE 500 MG/NS (PMX) 100 ML IVPB SCH (05:37)
[2018-08-27 08:11] VITALS: BP 134/79; PULSE 92; RESP 20
[2018-08-27] MEDS: SUCRALFATE 1 GM TAB PO SCH (08:15)
[2018-08-27] MEDS: ZINC SULFATE 220 MG CAP PO SCH (08:15)
[2018-08-27] MEDS: TIGECYCLINE 50 MG in SOD CHLORIDE 0.9% 100 ML IVPB SCH (08:15)
[2018-08-27] MEDS: ASCORBIC ACID 250 MG TAB PO SCH (08:15)
[2018-08-27] MEDS: Insulin NOVOLOG SS MILD Algorithm (SS with meals and bedtime) SC SCH (08:16)
[2018-08-27] MEDS: NIFEdipine (XL) 60 MG TAB PO SCH (08:16)
[2018-08-27] MEDS: MINERAL OIL 240 ML LOT TOP SCH (08:16)
[2018-08-27] MEDS: BETHANECHOL 10 MG TAB PO SCH (08:17)
[2018-08-27] MEDS: CITRIC ACID/NA CITRATE 30 ML CUP PO SCH (08:17)
[2018-08-27] MEDS: HEPARIN 5,000 UNIT/1 ML VIAL SC SCH (08:19)
[2018-08-27] MEDS: COLLAGENASE 5 GM (UD JAR) TOP SCH (08:23)
[2018-08-27] MEDS: DAKINS 0.0125%(1/40) 473 ML SOLUTION TP SCH (08:23)
[2018-08-27] MEDS: GENTAMICIN 0.1% 15 GM OINT TOP SCH (08:23)
[2018-08-27] MEDS ORDERED: METR500T PO (09:49)
== END 2018-08-27 10:40 | disposition home health service (06) | DRG 617 ==
LOC: E/R 17:46 → 2NE 19:38
PROVIDERS: ADMIT Family Medicine; ATTEND Internal Medicine
PROC: 0HRNXK3 Replacement of Left Foot Skin with Nonautologous Tissue Substitute, Full Thickness, External Approach (ICD-10-PCS; 2018-08-20)
PROC: 0HRMXK3 Replacement of Right Foot Skin with Nonautologous Tissue Substitute, Full Thickness, External Approach (ICD-10-PCS; 2018-08-20)
PROC: 0QBN0ZZ Excision of Right Metatarsal, Open Approach (ICD-10-PCS; 2018-08-20)
PROC: 0Y6N0ZB Detachment at Left Foot, Partial 2nd Ray, Open Approach (ICD-10-PCS; 2018-08-20)
PROC: 0Y6N0ZC Detachment at Left Foot, Partial 3rd Ray, Open Approach (ICD-10-PCS; 2018-08-20)
PROC: 0Y6N0ZD Detachment at Left Foot, Partial 4th Ray, Open Approach (ICD-10-PCS; 2018-08-20)
PROC: 0Y6N0ZF Detachment at Left Foot, Partial 5th Ray, Open Approach (ICD-10-PCS; 2018-08-20)
PROC: 0QBP0ZZ Excision of Left Metatarsal, Open Approach (ICD-10-PCS; 2018-08-20)
PROC: 0Y6N0Z9 Detachment at Left Foot, Partial 1st Ray, Open Approach (ICD-10-PCS; principal; 2018-08-20 12:30)
DX: E11.69 Type 2 diabetes mellitus with other specified complication (principal); E11.52 Type 2 diabetes mellitus with diabetic peripheral angiopathy with gangrene; M86.672 Other chronic osteomyelitis, left ankle and foot; M86.171 Other acute osteomyelitis, right ankle and foot; E11.621 Type 2 diabetes mellitus with foot ulcer; E11.42 Type 2 diabetes mellitus with diabetic polyneuropathy; E11.22 Type 2 diabetes mellitus with diabetic chronic kidney disease; D64.9 Anemia, unspecified; F43.20 Adjustment disorder, unspecified; F43.0 Acute stress reaction; I12.9 Hypertensive chronic kidney disease with stage 1 through stage 4 chronic kidney disease, or unspecified chronic kidney disease; L97.524 Non-pressure chronic ulcer of other part of left foot with necrosis of bone; L97.514 Non-pressure chronic ulcer of other part of right foot with necrosis of bone; N31.9 Neuromuscular dysfunction of bladder, unspecified; N20.0 Calculus of kidney; N18.3 Chronic kidney disease, stage 3 (moderate); R33.9 Retention of urine, unspecified; B95.2 Enterococcus as the cause of diseases classified elsewhere; B96.20 Unspecified Escherichia coli [E. coli] as the cause of diseases classified elsewhere; B96.89 Other specified bacterial agents as the cause of diseases classified elsewhere; Z16.24 Resistance to multiple antibiotics; Z89.432 Acquired absence of left foot; Z89.421 Acquired absence of other right toe(s); Z86.73 Personal history of transient ischemic attack (TIA), and cerebral infarction without residual deficits; Z79.84 Long term (current) use of oral hypoglycemic drugs; Z79.82 Long term (current) use of aspirin
CPT/HCPCS: 36415; 80048; 80053; 82728; 82962; 83540; 83735; 84100; 84703; 85025; 88304; 88311; 96374; J0696; J1644; J1815; J2250; J2543; J3010; J3243; J7030; J7042; Q4104

== ENCOUNTER 2018-11-09 12:42 | Day surgery (SDC) | payer BC ==
[~2018-11-09] VITALS: Ht 162.6 cm; Wt 96.9 kg
[~2018-11-09 12:42] MED LIST changes: +ASPI81TA52 PO; +CARV12.579 PO; +CEFT1PIG2 IVPB; +FER325 PO; -GENT30OI2 TOP; +METR500T PO; +SUCR1TAB56 PO; +TIGE50VI IV
[2018-11-09 13:22] VITALS: Ht 162.6 cm; Wt 96.9 kg
[2018-11-09 19:19] VITALS: BP 121/63; PULSE 88; RESP 23
== END 2018-11-09 19:45 | disposition home or self-care (01) ==
LOC: SDS 12:42
PROVIDERS: ATTEND Podiatrist Foot & Ankle Surgery
DX: E11.42 Type 2 diabetes mellitus with diabetic polyneuropathy (principal); Z89.432 Acquired absence of left foot; Z89.431 Acquired absence of right foot; I12.9 Hypertensive chronic kidney disease with stage 1 through stage 4 chronic kidney disease, or unspecified chronic kidney disease; N18.3 Chronic kidney disease, stage 3 (moderate); Z79.82 Long term (current) use of aspirin; Z79.84 Long term (current) use of oral hypoglycemic drugs
CPT/HCPCS: 11043; 11046; 82962; 84703; 87070; 87075; 87102; 87116; J2250; J3010; Q9968; Z7512; Z7610

== ENCOUNTER 2019-01-18 15:50 | Day surgery (SDC) | payer BC ==
[~2019-01-18] VITALS: Ht 162.6 cm; Wt 64.7 kg
[2019-01-18] VITALS (11 sets, daily range): BP systolic 116–133; BP diastolic 60–72; PULSE 82–97; RESP 0–18; Ht 162.6 cm; Wt 64.7 kg
[~2019-01-18 15:50] MED LIST changes: -ACET325T33 PO; -ASCO250T96 PO; -ASPI-817 PO; -BETH10TA16 PO; -BICS PO; -CARV25TA79 PO; -CEFT1PIG2 IVPB; +CLINDAMYCIN 900 MG (PMX) 50 ML IVPB SCH; -METF500T NGT; -METR500T PO; -SAN30GM TOP; -SODI473S5 TP; -SUCR1TAB56 PO; -TIGE50VI IV; -ZINC220C5 PO; -[UNRECOGNIZED DRUG - CODE] TOP
[2019-01-18] MEDS ORDERED: POLYMYXIN/BACITRACIN 1L IRRIG ONE (17:56)
[2019-01-18] MEDS ORDERED: BUPIVACAINE 0.5% (SDV) 30 ML INJ ONE (18:01)
[2019-01-18] MEDS ORDERED: LIDOCAINE 1% (MPF) 30 ML INJ ONE (18:01)
[2019-01-18] MEDS ORDERED: MIDAZOLAM 1 MG/ML 2 ML INJ ONE (18:32)
[2019-01-18] MEDS ORDERED: FENTAnyl 50 MCG/ML VIAL ONE (18:32)
[2019-01-18] MEDS ORDERED: CEFAZOLIN 1 GM INJ ONE (19:34)
[2019-01-18] MEDS ORDERED: DIPHENHYDRAMINE 50 MG INJ IV PRN (20:00)
[2019-01-18] MEDS ORDERED: LABETALOL HCL 20MG INJ IV PRN (20:00)
[2019-01-18] MEDS ORDERED: HYDROmorphONE 1 MG/5 ML IV SYRINGE IV PRN ×2 (20:00)
[2019-01-18] MEDS ORDERED: ONDANSETRON 4 MG INJ IV PRN (20:00)
[2019-01-18] MEDS ORDERED: hydrALAzine 20 MG INJ IV PRN (20:00)
[2019-01-18] MEDS ORDERED: MEPERIDINE 25 MG INJ IV PRN (20:00)
[2019-01-18] MEDS ORDERED: FENTAnyl 50 MCG/ML VIAL IV PRN (20:00)
== END 2019-01-18 20:47 | disposition home or self-care (01) ==
LOC: SDS 15:50
PROVIDERS: ATTEND Podiatrist Foot & Ankle Surgery
DX: L97.529 Non-pressure chronic ulcer of other part of left foot with unspecified severity (principal); L97.519 Non-pressure chronic ulcer of other part of right foot with unspecified severity; I96 Gangrene, not elsewhere classified; R73.03 Prediabetes; I12.9 Hypertensive chronic kidney disease with stage 1 through stage 4 chronic kidney disease, or unspecified chronic kidney disease; N18.3 Chronic kidney disease, stage 3 (moderate); I69.854 Hemiplegia and hemiparesis following other cerebrovascular disease affecting left non-dominant side
CPT/HCPCS: 11043; 11046; 82962; 84703; 87070; 87075; 87102; 87116; J0690; J2250; J3010; Z7512; Z7610